=== PATIENT | male | born 1975 | race Caucasian/White ===

== ENCOUNTER 2017-10-31 16:50 | Inpatient (IN) | END 2017-11-05 11:05 | disposition home or self-care (01) | DRG 443 ==

== ENCOUNTER 2018-01-31 16:51 | Inpatient (IN) | END 2018-02-02 11:42 | disposition home or self-care (01) | DRG 977 ==

== ENCOUNTER 2018-11-30 16:45 | Inpatient (IN) | payer MEDICAID, OTHER ==
[~2018-11-30] VITALS: Ht 167.6 cm; Wt 72.5 kg
[~2018-11-30 16:45] MED LIST: ASC500 PO; ATRO10DR OP; FLUC100T PO; LACT1CAP28 PO; MULT-843 PO; PRED5DRO20 LEFT EYE; SODI473S5 TP; SULF-182 PO; TRUV PO; [UNRECOGNIZED DRUG - CODE] PO
[2018-11-30] MEDS ORDERED: SODIUM CHLORIDE 0.9% 1L BAG IV* STA (18:21)
[2018-11-30] MEDS ORDERED: VANCOMYCIN 1 GM (PMX) 250 ML IVPB STA (18:21)
[2018-11-30] MEDS ORDERED: CLINDAMYCIN 900 MG/D5W (PMX) 50 ML IVPB STA (18:21)
[2018-11-30] MEDS ORDERED: PIPER-TAZO 3.375 GM IV (PMX) 100 ML IVPB STA (18:21)
[2018-11-30] MEDS ORDERED: IOHEXOL 300MG/ML 150 ML BTL ONE (18:29)
[2018-11-30] MEDS ORDERED: SOD CHLORIDE 0.9% 100 ML ONE (18:29)
[2018-11-30] MEDS ORDERED: IODIXANOL LOCM 100 ML BTL ONE (18:29)
[2018-11-30] MEDS ORDERED: FENTAnyl 50 MCG/ML VIAL IV ONE (18:30)
--- NOTE | 2018-11-30 18:48 | ERD ---
ER Documentation Chief Complaint Chief Complaint c/o left sided abdominal pain x3 days. Denies N/V/D. Hypotensive in triage HPI 42-year-old male complaining of scrotal swelling and severe pain. He noticed a lump on his scrotum about 5 days ago. Has significantly increased in size and is now causing a lot of pain. He denies any associated fevers or chills. He states he feels very tired because he has been unable to sleep due to the pain. The pain is now spreading into his left lower abdomen and flank. ROS All systems reviewed and are negative except as per history of present illness. Medications Home Meds No Active Prescriptions or Reported Meds Allergies Allergies: Coded Allergies: No Known Allergy (Unverified , 01/31/18) PMhx/Soc History of Surgery: No Anesthesia Reaction: No Hx Neurological Disorder: No Hx Respiratory Disorders: No Hx Cardiac Disorders: No Hx Psychiatric Problems: No Hx Miscellaneous Medical Probl: Yes (Hepatitis) Hx Alcohol Use: Yes Hx Substance Use: Yes Hx Tobacco Use: No FmHx Family History: No diabetes Physical Exam Vitals Vital Signs Date Temp Pulse Resp B/P (MAP) Pulse Ox O2 O2 Flow FiO2 Time Delivery Rate 11/30/18 119 16 104/78 99 Nasal 19:53 (87) Cannula 11/30/18 98.2 119 16 107/75 99 Nasal 19:02 (86) Cannula 11/30/18 92/63 (73) 18:30 11/30/18 Nasal 2 18:30 Cannula 11/30/18 97.6 55 18 88/55 (66) 99 17:41 Physical Exam Const: In distress secondary to pain, nontoxic, no diaphoresis Head: Atraumatic Eyes: Normal Conjunctiva ENT: Dry mucous membranes. Normal External Ears, Nose and Mouth. Neck: Full range of motion. No meningismus. Resp: Clear to auscultation bilaterally Cardio: Regular rate and rhythm, no murmurs Abd: Erythema noted in the left lower quadrant, extending to the back. Tender to palpation in the left lower quadrant. Soft, non distended. Normal bowel sounds : Significant scrotal swelling with erythema and small ulceration of the skin on the lower portion of the scrotum with signs of mild necrosis. No crepitus. Scrotum is fluctuant and severely tender to palpation. Penis appears normal. Skin: Appears pale, no petechiae or rashes Back: No midline or flank tenderness Ext: No cyanosis, or edema Neur: Awake and alert Psych: Normal Mood and Affect Result Diagram: 11/30/18182811/30/181828 Results 24 hrs Laboratory Tests Test 11/30/18 18:29 11/30/18 18:30 11/30/18 19:35 White Blood Count 13.0 10^3/ul Red Blood Count 4.56 10^6/ul Hemoglobin 12.3 g/dl Hematocrit 36.6 % Mean Corpuscular Volume 80.3 fl Mean Corpuscular Hemoglobin 27.0 pg Mean Corpuscular 33.6 g/dl Hemoglobin Concent Red Cell Distribution Width 14.6 % Platelet Count 353 10^3/UL Mean Platelet Volume 10.7 fl Immature Granulocytes % 0.500 % Neutrophils % % Segmented Neutrophils % (Manual) 56 % Band Neutrophils % (Manual) 27 % Lymphocytes % % Lymphocytes % (Manual) 7 % Monocytes % % Monocytes % (Manual) 7 % Eosinophils % % Basophils % % Metamyelocytes % (manual) 1 % Myelocytes % (Manual) 2 % Nucleated Red Blood Cells % 1 % Immature Granulocytes # 0.060 10^3/ul Neutrophils # 10^3/ul Neutrophils # (Manual) 7.7 10^3/ul Band Neutrophils # 3.5 10^3/ul Lymphocytes (Manual) 0.9 10^3/ul Lymphocytes # 10^3/ul Monocytes # 10^3/ul Monocytes # (Manual) 0.9 10^3/ul Eosinophils # 10^3/ul Basophils # 10^3/ul Metamyelocytes # 0.1 10^3/ul Myelocytes # 0.2 10^3/ul Nucleated Red Blood Cells # 10^3/ul Giant Platelets 2 % Polychromasia 1+ Poikilocytosis 3+ Anisocytosis 2+ Macrocytosis 2+ Prothrombin Time 15.1 Sec Prothrombin Time Ratio 1.2 INR International 1.18 Normalized Ratio Activated Partial Thromboplast 40.7 Sec Time Sodium Level 132 mmol/L Potassium Level 4.9 mmol/L Chloride Level 91 mmol/L Carbon Dioxide Level 21 mmol/L Anion Gap 20 Blood Urea Nitrogen 44 mg/dl Creatinine 2.19 mg/dl Est Glomerular Filtrat 33 mL/min Rate mL/min Glucose Level 89 mg/dl Calcium Level 8.8 mg/dl Total Bilirubin 0.7 mg/dl Direct Bilirubin 0.00 mg/dl Indirect Bilirubin 0.7 mg/dl Aspartate Amino Transf (AST/SGOT) 53 IU/L Alanine 22 IU/L Aminotransferase (ALT/SGPT) Alkaline Phosphatase 140 IU/L Troponin I 0.043 ng/ml Total Protein 8.1 g/dl Albumin 3.7 g/dl Globulin 4.40 g/dl Albumin/Globulin Ratio 0.84 POC Venous Lactate 4.6 mmol/L Urine Color YELLOW Urine Clarity CLOUDY Urine pH 5.0 Urine Specific [place] 1.026 Urine Ketones NEGATIVE mg/dL Urine Nitrite NEGATIVE mg/dL Urine Bilirubin NEGATIVE mg/dL Urine Urobilinogen NEGATIVE mg/dL Urine Leukocyte Esterase NEGATIVE Da/ul Urine Microscopic RBC 0 /HPF Urine Microscopic WBC 5 /HPF Urine Bacteria FEW /HPF Urine Granular Casts FEW /HPF Urine Hemoglobin 1+ mg/dL Urine Glucose NEGATIVE mg/dL Urine Total Protein 1+ mg/dl Urine Opiates Screen Negative Urine Barbiturates Negative Urine Amphetamines Screen Negative Urine Benzodiazepines Screen Negative Urine Cocaine Screen Negative Urine Cannabinoids Positive Current Medications Medications Dose Sig/Kostas Start Time Status Last (Trade) Ordered Route PRN Stop Time Admin Dose Reason Admin Sodium 2,220 ml BOLUS OVER 2 11/30/18 DC 11/30/18 Chloride HOURS STAT 18:21 11/30/18 18:29 (NS) IV* 18:26 Vancomycin 250 ml @ ONCE STAT 11/30/18 DC HCl 125 mls/hr IVPB 18:21 11/30/18 20:20 Clindamycin 50 ml @ 50 ONCE STAT 11/30/18 DC 11/30/18 HCl/ mls/hr IVPB 18:21 11/30/18 19:44 Dextrose 19:20 Piperacillin 100 ml @ ONCE STAT 11/30/18 DC 11/30/18 Sod/ 200 mls/hr IVPB 18:21 11/30/18 18:51 Tazobactam 18:50 Sod Fentanyl 50 mcg ONCE ONCE 11/30/18 DC 11/30/18 (Sublimaze) IV 18:30 11/30/18 18:51 18:31 IV Flush 10 ml STK-MED 11/30/18 DC 11/30/18 (NS 10 ml) ONCE .ROUTE 18:29 11/30/18 18:49 18:30 Sodium 100 ml @ ud STK-MED 11/30/18 DC 11/30/18 Chloride ONCE .ROUTE 18:29 11/30/18 18:49 18:30 Iodixanol 100 ml STK-MED 11/30/18 DC (Visipaque ONCE .ROUTE 18:29 11/30/18 Locm) 18:30 Iohexol 150 ml STK-MED 11/30/18 DC 11/30/18 (Omnipaque ONCE .ROUTE 18:29 11/30/18 18:49 300mg/ ml) 18:30 Procedures/MDM EMERGENT LABS AND DIAGNOSTIC STUDIES: Lab Results above were reviewed and interpreted by me. CBC: leukocytosis, concerning for infection CMP: Evidence of acute renal failure with elevated BUN and creatinine. No evidence of clinically significant electrolyte abnormality, acidosis, hypoglycemia, liver disease, or biliary obstruction Troponin within normal limits, not indicative of cardiac ischemia Lactate significantly elevated, consistent with septic shock UA: no evidence of infection 12-lead EKG was interpreted by Ana Cuello MD: Sinus tachycardia at 119 Normal axis Normal intervals No acute ST or T wave changes suggestive of acute ischemia or STEMI. Radiology Results as interpreted by Radiology below were reviewed by Edvin Cuello MD: Chest x-ray shows no acute abnormalities CT abdomen and pelvis: FINDINGS: The lung bases are clear of any infiltrate or nodule. No effusion is seen. The liver is enlarged measuring 21.4 cm. There is fatty infiltration. There is no mass or ductal dilatation. No gallstones are visualized. No adrenal or pancreatic abnormalities present. spleen is enlarged measuring 15 cm in AP diameter. No focal splenic mass is visualized. Kidneys are of normal size and contour. No hydronephrosis, calculus or mass Is seen. Ureters are of normal course and caliber with no stone. No bladder mass or stone is present. Uterus and ovaries appear normal. There is no aneurysm. No adenopathy is present. There are visible but nonpathologically enlarged retroperitoneal and bilateral inguinal nodes. No bowel mass or obstruction is present. The appendix is normal. No phlegmon, ascites or pneumoperitoneum is visualized. The osseous structures are intact. There is diffuse infiltration of the subcutaneous fat in the anterior pelvis extending into the score of. A 14 mm focal fluid collection is present on the lateral left scrotal wall. There is a left-sided hydrocele. Fluid is seen tracking along the superficial aspect of the left rectus muscle and is seen wi thin the internal and external oblique muscles in the left abdomen. There is no gas present within the edema. IMPRESSION: Diffuse thickening wall scrotum with left-sided hydrocele and small focal fluid collection left scrotum. Question abscess. Extensive phlegmonous infiltration subcutaneous fat anterior pelvis with fluid tracking in the left anterior abdominal wall. Correlation with scrotal ultrasound is recommended for more definitive diagnosis. Visible but nonpathologically enlarged reactive lymph nodes. Hepatis splenomegaly. Initial Nursing notes reviewed. Previous Medical Records requested via the Electronic Health Record. 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 Sepsis work-up was initiated. Lactate was significantly elevated, consistent with septic shock. Patient was given IV fluids and antibiotics. He was responsive to IV fluids with improvement of his hypertension. I immediately consulted the urologist on-call, who came to examine the patient soon after. He confirmed the diagnosis of Nida's gangrene and recommended the patient go immediately to the OR. Patient's infectious symptoms have not stabilized, and the patient is at risk of rapid decompensation. The patient will be admitted for careful hydration, antibiotic therapy, and infectious source control. Severe Sepsis criteria: Infectious source: Nida's gangrene End organ damage indicated by: Lactate > 2.0 mmol/L Hypotension (SBP < 90 or >40 mmHG drop or MAP < 65) Quantitative Consultant > 2.0 Sepsis Management: Time of recognition of severe sepsis: 18:30 Within 3 hours of recognition: Blood cultures x 2 before broad-spectrum antibiotics: Yes 30 ml/kg NS bolus Completed Initial lactate 4.6 Repeat lactate pending at time of admission Septic Shock Assessment: Any lactic acid > 4.0 yes Persistent hypotension (SBP < 90 or 40 mmHg drop, MAP < 65) despite 30 mL/kg IV fluid bolus No A focused sepsis perfusion/reperfusion reassessment examination was performed post 30ml/kg bolus @ 1902: Temp 98.2, BP 107/75, HR 119, RR16, Pox 99% Persistent Hypotension Treatment: Comfort care No Hypotension caused by: pt. baseline, med-induced, erroneous value, condition other than infection- No Refusal by patient/decision maker for: blood draw, IVF, Antibiotics, Pressors - No Central line not indicated Vasopressor not indicated Accepting Care Team Current data and ongoing care discussed. Admitting Physician: Dr. Manzo Software Quality Specialist(s): Urologist Dr. Damon Outstanding Data: cultures Critical Care Time: 45 minutes Treatments/Evaluations: Close monitoring and treatment of unstable vital signs, cardiorespiratory, and neurologic status, while maintaining tight balance of fluid, respiratory, and cardiac interventions. This includes the administration of emergency fluid management while maintaining close respiratory support as well as the provision of immediate and broad-spectrum antibiotic therapy, while performing a simultaneous assessment for possible sources in order to direct targeted therapy. This time includes discussing the case with the patient and the patients family.This time also includes the consideration for invasive and chemical support to prevent cardiopulmonary collapse. This time does not include all procedures stated elsewhere in this record. This time also includes reviewing old records, labs and radiological studies. This time includes examining and reexamining the patient. Additionally, this time also includes arranging care with admitting and consulting physicians. Departure Diagnosis: Primary Impression: Septic shock Additional Impressions: Acute renal failure Acute renal failure type: unspecified Qualified Codes: N17.9 - Acute kidney failure, unspecified Nida's gangrene of scrotum Condition: Critical ROBIN CUELLO MD Nov 30, 2018 18:47
--- NOTE | 2018-11-30 20:03 | CONS ---
Assessment/Plan Assessment/Plan Hospital Course (Demo Recall) 42-year-old male noticed a lump on his left side of the scrotum about a week earlier. He did not seek any medical help. Then today he noticed much more swelling and erythema and pain. He came into the emergency room and on the examination he does have erythema of inguinal area on both sides left more than right and the scrotum is very enlarged and has fluid in it and areas of skin necrosis on the posterior part of the scrotum. All of these suggesting an infectious process that is early Nida gangrene. On the physical examination all the findings are suggestive of early Nida gangrene. I did explain that to the patient and told him of the need to operate on him and that he may need multiple trips to the operating room. Patient is agreeable to proceed. Consultation Date/Type/Reason Admit Date/Time November 30, 2018 Date of Consultation: Nov 30, 2018 Type of Consult Urology Reason for Consultation Nida gangrene of the scrotum, perineal area and inguinal and suprapubic area Requesting Provider: ROBIN TAVAREZ MD Date/Time of Note DATE: 11/30/18 TIME: 19:55 Hx of Present Illness 42-year-old male noticed a lump on his left side of the scrotum about a week earlier. He did not seek any medical help. Then today he noticed much more swelling and erythema and pain. He came into the emergency room and on the examination he does have erythema of inguinal area on both sides left more than right and the scrotum is very enlarged and has fluid in it and areas of skin ne crosis on the posterior part of the scrotum. All of these suggesting an infectious process that is early Nida gangrene. Constitutional: no complaints Eyes: no complaints ENT: no complaints Respiratory: no complaints Cardiovascular: no complaints Gastrointestinal: other (Pain lower abdomen) Genitourinary: other (As per history of present illness) Musculoskeletal: no complaints Skin: erythema (Of bilateral inguinal areas and suprapubic area.), skin lesions (Of the scrotum) Neurologic: no complaints Endocrine: no complaints Psychological: no complaints Past Medical History Medical History: no pertinent history Home Meds No Active Prescriptions or Reported Meds Medications Current Medications Vancomycin HCl 250 ml @ 125 mls/hr ONCE STAT IVPB ; Start 11/30/18 at 18:21; Stop 11/30/18 at 20:20 Allergies: Coded Allergies: No Known Allergy (Unverified , 01/31/18) Past Surgical History Past Surgical Hx: no surgical history Social History Smoking Status: Former smoker Drug Use: marijuana (Does smoke marijuana) Exam/Review of Systems Exam Vitals Vital Signs Date Temp Pulse Resp B/P (MAP) Pulse Ox O2 O2 Flow FiO2 Time Delivery Rate 11/30/18 119 16 104/78 99 Nasal 19:53 (87) Cannula 11/30/18 98.2 19:02 11/30/18 2 18:30 Constitutional: alert, oriented Psych: no complaints Head: normocephalic Eyes: nl conjunctiva ENMT: nl external ears & nose Neck: supple Respiratory: normal air movement; No wheezing Cardiovascular: No jugular venous distention (JVD) Gastrointestinal: soft, other (Erythema and pain in the inguinal area and suprapubic areas) Genitourinary - Male: other (The scrotum is enlarged and discolored whitish and in the posterior part area of necrosis of the skin there is fluctuation in the scrotum. There is erythema extending into both inguinal areas on the left more than on the right.) Extremities: No calf tenderness Results Result Diagram: 11/30/18182811/30/181828 Results 24hrs Laboratory Tests Test 11/30/18 18:29 11/30/18 18:30 White Blood Count 13.0 #H Red Blood Count 4.56 L Hemoglobin 12.3 L Hematocrit 36.6 L Mean Corpuscular Volume 80.3 L Mean Corpuscular Hemoglobin 27.0 L Mean Corpuscular Hemoglobin Concent 33.6 Red Cell Distribution Width 14.6 H Platelet Count 353 # Mean Platelet Volume 10.7 H Immature Granulocytes % 0.500 H Neutrophils % Lymphocytes % Monocytes % Eosinophils % Basophils % Nucleated Red Blood Cells % 0.0 Immature Granulocytes # 0.060 H Neutrophils # Lymphocytes # Monocytes # Eosinophils # Basophils # Nucleated Red Blood Cells # Prothrombin Time 15.1 H Prothrombin Time Ratio 1.2 INR International Normalized Ratio 1.18 Activated Partial Thromboplast Time 40.7 H Sodium Level 132 L Potassium Level 4.9 Chloride Level 91 L Carbon Dioxide Level 21 Anion Gap 20 H Blood Urea Nitrogen 44 H Creatinine 2.19 H Est Glomerular Filtrat Rate mL/min 33 L Glucose Level 89 Calcium Level 8.8 Total Bilirubin 0.7 Direct Bilirubin 0.00 Indirect Bilirubin 0.7 Aspartate Amino Transf (AST/SGOT) 53 H Alanine Aminotransferase (ALT/SGPT) 22 Alkaline Phosphatase 140 H Troponin I 0.043 Total Protein 8.1 Albumin 3.7 Globulin 4.40 H Albumin/Globulin Ratio 0.84 POC Venous Lactate 4.6 *H Imaging Imaging CT scan of the abdomen and pelvis: The lung bases are clear of any infiltrate or nodule. No effusion is seen. The liver is enlarged measuring 21.4 cm. There is fatty infiltration. There is no mass or ductal dilatation. No gallstones are visualized. No adrenal or pancreatic abnormalities present. spleen is enlarged measuring 15 cm in AP diameter. No focal splenic mass is visualized. Kidneys are of normal size and contour. No hydronephrosis, calculus or mass Is seen. Ureters are of normal course and caliber with no stone. No bladder mass or stone is present. Uterus and ovaries appear normal. There is no aneurysm. No adenopathy is present. There are visible but nonpathologically enlarged retroperitoneal and bilateral inguinal nodes. No bowel mass or obstruction is present. The appendix is normal. No phlegmon, ascites or pneumoperitoneum is visualized. The osseous structures are intact. There is diffuse infiltration of the subcutaneous fat in the anterior pelvis extending into the score of. A 14 mm focal fluid collection is present on the lateral left scrotal wall. There is a left-sided hydrocele. Fluid is seen tracking along the superficial aspect of the left rectus muscle and is seen within the internal and external oblique muscles in the left abdomen. There is no gas present within the edema. IMPRESSION: Diffuse thickening wall scrotum with left-sided hydrocele and small focal fluid collection left scrotum. Question abscess. Extensive phlegmonous infiltration subcutaneous fat anterior pelvis with fluid tracking in the left anterior abdom inal wall. Correlation with scrotal ultrasound is recommended for more definitive diagnosis. Visible but nonpathologically enlarged reactive lymph nodes. Hepatis splenomegaly. Medications Medication Current Medications Vancomycin HCl 250 ml @ 125 mls/hr ONCE STAT IVPB ; Start 11/30/18 at 18:21; Stop 11/30/18 at 20:20 GWEN BUCK MD Nov 30, 2018 20:03
--- NOTE | 2018-11-30 20:12 | PREAC ---
Date/Time of Note Date/Time of Note DATE: 11/30/18 TIME: 20:11 Anesthesia Eval and Record Evaluation Time Pre-Procedure Interview DATE: 11/30/18 TIME: 20:11 Age 42 Sex male NPO: 8 hrs Preoperative diagnosis scrotal abscess Planned procedure I&D of scrotal abscess Past Medical History Past Medical History: Includes Cardio: Dyslipidemia Pulm: Smoking Hx Surgery & Anesthesia Issues No known issue Meds Anticoagulation: No Beta Lynne within 24 hr: No Reason Beta Lynne not given: Pt. not on B-Lynne No Active Prescriptions or Reported Meds Current Medications Vancomycin HCl 250 ml @ 125 mls/hr ONCE STAT IVPB ; Start 11/30/18 at 18:21; Stop 11/30/18 at 20:20 Meds reviewed: Yes Allergies Coded Allergies: No Known Allergy (Unverified , 01/31/18) Allergies Reviewed: Yes Labs/Studies Labs Reviewed: Reviewed by anesthesiologist Result Diagram: 11/30/18 1829 11/30/18 1829 Laboratory Tests 11/30/18 18:29 test: N/A Pre-procedure Exam Last vitals Vital Signs Date Temp Pulse Resp B/P (MAP) Pulse Ox O2 O2 Flow FiO2 Time Delivery Rate 11/30/18 119 16 104/78 99 Nasal 19:53 (87) Cannula 11/30/18 98.2 19:02 11/30/18 2 18:30 Airway: Adequate mouth opening, Adequate thyromental dist Mallampati: Mallampati II Teeth: Normal Lung: Normal Heart: Normal ASA Physical Status ASA physical status: 2 Emergency: None Planned Anesthetic General/MAC: ETT Pre-operative Attestations Prior to commencing anesthesia and surgery, the patient was re-evaluated, there was verification of: *The patient's identity *The results of appropriate recent lab work and preoperative vital signs *The above evaluation not changing prior to induction *Anesthetic plan, risk benefits, alternative and complications discussed with patient/family; questions answered; patient/family understands, accepts and wishes to proceed. EMMANUEL DESAI Nov 30, 2018 20:12
[2018-11-30] MEDS ORDERED: POLYMYXIN/BACITRACIN 1L IRRIG IRR ONE (20:20)
[2018-11-30] MEDS ORDERED: SUCCINYLCHOLINE CHLORIDE 100 MG/5 ML SYG IV ONE (20:25)
[2018-11-30] MEDS ORDERED: PROPOFOL 20 ML ONE (20:25)
[2018-11-30] MEDS ORDERED: ROCURONIUM 50 MG INJ ONE (20:25)
[2018-11-30] MEDS ORDERED: FENTAnyl 50 MCG/ML VIAL ONE ×4 (20:25→21:31)
[2018-11-30] MEDS ORDERED: LIDOCAINE 100 MG SYRINGE ONE (20:25)
[2018-11-30] MEDS ORDERED: ONDANSETRON 4 MG INJ IV PRN ×2 (20:30→22:00)
[2018-11-30] MEDS ORDERED: HYDROmorphONE 1 MG/5 ML IV SYRINGE IV PRN ×3 (20:30)
[2018-11-30] MEDS ORDERED: MEPERIDINE 25 MG INJ IV PRN ×2 (20:30→22:00)
[2018-11-30] MEDS ORDERED: FENTAnyl 50 MCG/ML VIAL IV PRN ×6 (20:30→22:00)
[2018-11-30] MEDS ORDERED: ALBUTEROL 0.083% (NEB) 2.5 MG/3 ML AMP HHN PRN ×2 (20:30→22:00)
[2018-11-30] MEDS ORDERED: METOCLOPRAMIDE 10 MG INJ IV PRN ×2 (20:30→22:00)
[2018-11-30] MEDS ORDERED: DIPHENHYDRAMINE 50 MG INJ IV PRN ×2 (20:30→22:00)
[2018-11-30] MEDS ORDERED: VANCOMYCIN IV PER PHARMACY XX SCH (21:00)
[2018-11-30] MEDS ORDERED: SUGAMMADEX SODIUM 200 MG/2 ML VIAL IV ONE (21:27)
[2018-11-30] MEDS ORDERED: MIDAZOLAM 1 MG/ML 2 ML INJ ONE (21:34)
[2018-11-30] MEDS ORDERED: HYDROmorphONE 0.5 MG/0.5 ML SYG IV PRN ×3 (22:00)
[2018-11-30 22:05] VITALS: PULSE 133
--- NOTE | 2018-11-30 22:10 | OPR ---
Date/Time of Note Date/Time of Note DATE: 11/30/18 TIME: 22:02 Operative Report Procedure Date: Nov 30, 2018 Preoperative Diagnosis Nida gangrene Postoperative Diagnosis Same Operation/Procedure Performed Excision, debridement, drainage of gangrenous and infected scrotal, perineal, left inguinal and penile areas. Surgeon see signature line Log Roller Yasmine Barbour Anesthesia Type: general Anesthesiologist: EMMANUEL DESAI Estimated Blood Loss: 10 - 50 ml's Transfusion none Specimen Necrotic and gangrenous tissue from scrotum, perineal, left inguinal and penile base areas Grafts/Implants none Complications none Pt Condition Post Procedure: stable Disposition: other (ICU) Indications Nida gangrene Procedure Description The patient was seen in the emergency room and found to have Nida gangrene therefore we brought him to the operating room. He underwent general endotracheal anesthesia. He already received antibiotics IV. He was then positioned in the lithotomy position. The lower abdomen and genital area and upper thighs were all prepped and draped in the usual sterile manner. The posterior part of the scrotum was then cut and opened and extended on durally toward the left inguinal area. The scrotal skin was thick, swollen, infected and on the right side it was whitish. There was a lot of drainage of sanguinous purulent fluid and cultures were taken. I did excise all the necrotic and gangrenous tissue from the scrotum back toward the perineum and toward the left inguinal area and across the scrotum to the right side of the scrotum and at the base of the penis also the left side around the tunica vaginalis there was a lot of necrotic tissue that I peeled off and then the tunica vaginalis itself was pink and healthy. On the right side there was a lot of whitish tissue and these were debrided at the end a good size of the skin on the right side did not appear to be pinkish but I left it with the hope that it will survive so we could have enough skin to close his wound later on at the end I did irrigate all the wound with antibiotic solution then I packed the wound with Kerlix and put 4 x 4's on the top of it and the dressing was held in place with 3 sutures and a fenestrated that underwear the patient was stable and was transferred to the intensive care unit in a stable condition. I did talk to him and to his partner before the surgery and after the surgery with his partner. He will need multiple trips back to the operating room to continue debriding any necrotic tissue. GWEN BUCK MD Nov 30, 2018 22:10
[2018-11-30 23:00] VITALS: BP 91/72; PULSE 125; RESP 20
[2018-11-30] MEDS: PIPER-TAZO 3.375 GM IV (PMX) 100 ML IVPB SCH (23:37)
[2018-11-30] MEDS ORDERED: VANCOMYCIN HCL 1.25 GM in SOD CHLORIDE 0.9% 250 ML IVPB SCH (23:45)
[2018-11-30 23:55] VITALS: Ht 167.6 cm; Wt 72.5 kg
[2018-12-01] VITALS (23 sets, daily range): BP systolic 80–116; BP diastolic 45–82; PULSE 95–138; RESP 18–32
[2018-12-01] MEDS: SOD CHLORIDE 0.9% 1,000 ML IV SCH ×4 (00:01→19:07)
[2018-12-01] MEDS: ACETAMINOPHEN 650MG/20.3ML CUP PO PRN ×3 (04:27→21:03)
[2018-12-01] MEDS ORDERED: SOD CHLORIDE 0.9% 1,000 ML IV ONE ×2 (04:30→10:00)
[2018-12-01] MEDS: PANTOPRAZOLE 40 MG INJ IV SCH (05:22)
[2018-12-01] MEDS: PIPER-TAZO 3.375 GM IV (PMX) 100 ML IVPB SCH ×4 (05:22→23:42)
--- NOTE | 2018-12-01 05:52 | HP ---
Date/Time of Note Date/Time of Note DATE: 12/01/18 TIME: 05:43 Assessment/Plan VTE Prophylaxis Pharmacological prophylaxis: NA/contraindicated Pharm contraindication: other (Patient just had a surgery) Lines/Catheters IV Catheter Type (from Nrs): Peripheral IV Urinary Cath still in place: No Assessment/Plan Assessment/Plan 1. Fourier gangrene of the scrotum: That is post I&D in the OR -IV antibiotic -Follow-up culture results -Pain management 2. Sepsis: Secondary to above -Broad-spectrum IV antibiotic, IV fluid, trend lactate -Follow-up culture results -ID consult 3. Left eye blindness -This is been going on for the past few weeks -He is following up with directory compiler as outpatient. He does not know what the diagnosis is, but he saw a retina specialist -Follow-up with his directory compiler as outpatient 4. Acute renal insufficiency -IV fluid for now and treat sepsis 5. History of HIV -ID consult in a.m. 6. History of hep B Result Diagram: 12/01/18 0423 12/01/18 0423 Results 24hrs Laboratory Tests Test 11/30/18 18:29 11/30/18 18:30 11/30/18 19:35 11/30/18 22:18 White Blood Count 13.0 #H Red Blood Count 4.56 L Hemoglobin 12.3 L Hematocrit 36.6 L Mean Corpuscular Volume 80.3 L Mean Corpuscular 27.0 L Hemoglobin Mean Corpuscular 33.6 Hemoglobin Concent Red Cell Distribution 14.6 H Width Platelet Count 353 # Mean Platelet Volume 10.7 H Immature Granulocytes % 0.500 H Neutrophils % Segmented Neutrophils 56 % (Manual) Band Neutrophils % 27 H (Manual) Lymphocytes % Lymphocytes % (Manual) 7 L Monocytes % Monocytes % (Manual) 7 Eosinophils % Basophils % Metamyelocytes % 1 H (manual) Myelocytes % (Manual) 2 H Nucleated Red Blood 1 H Cells % Immature Granulocytes # 0.060 H Neutrophils # Neutrophils # (Manual) 7.7 H Band Neutrophils # 3.5 H Lymphocytes (Manual) 0.9 Lymphocytes # Monocytes # Monocytes # (Manual) 0.9 Eosinophils # Basophils # Metamyelocytes # 0.1 H Myelocytes # 0.2 H Nucleated Red Blood Cells # Giant Platelets 2 H Polychromasia 1+ Poikilocytosis 3+ Anisocytosis 2+ Macrocytosis 2+ Prothrombin Time 15.1 H Prothrombin Time Ratio 1.2 INR International 1.18 Normalized Ratio Activated 40.7 H Partial Thromboplast Time Sodium Level 132 L Potassium Level 4.9 Chloride Level 91 L Carbon Dioxide Level 21 Anion Gap 20 H Blood Urea Nitrogen 44 H Creatinine 2.19 H Est Glomerular Filtrat 33 L Rate mL/min Glucose Level 89 Calcium Level 8.8 Total Bilirubin 0.7 Direct Bilirubin 0.00 Indirect Bilirubin 0.7 Aspartate Amino 53 H Transf (AST/SGOT) Alanine 22 Aminotransferase (ALT/SG PT) Alkaline Phosphatase 140 H Troponin I 0.043 Total Protein 8.1 Albumin 3.7 Globulin 4.40 H Albumin/Globulin Ratio 0.84 POC Venous Lactate 4.6 *H Urine Color YELLOW Urine Clarity CLOUDY A Urine pH 5.0 Urine Specific [place] 1.026 Urine Ketones NEGATIVE Urine Nitrite NEGATIVE Urine Bilirubin NEGATIVE Urine Urobilinogen NEGATIVE Urine Leukocyte Esterase NEGATIVE Urine Microscopic RBC 0 Urine Microscopic WBC 5 Urine Bacteria FEW A Urine Granular Casts FEW A Urine Hemoglobin 1+ H Urine Glucose NEGATIVE Urine Total Protein 1+ H Urine Opiates Screen Negative Urine Barbiturates Negative Urine Amphetamines Negative Screen Urine Benzodiazepines Negative Screen Urine Cocaine Screen Negative Urine Cannabinoids Positive Lactic Acid Level 4.9 *H Test 11/30/18 23:23 12/01/18 00:20 12/01/18 04:23 Bedside Glucose 94 Lactic Acid Level 3.1 *H White Blood Count 7.6 # Red Blood Count 3.77 L Hemoglobin 10.2 L Hematocrit 31.1 L Mean Corpuscular Volume 82.5 Mean Corpuscular 27.1 L Hemoglobin Mean Corpuscular 32.8 Hemoglobin Concent Red Cell Distribution 15.0 H Width Platelet Count 298 Mean Platelet Volume 10.8 H Immature Granulocytes % 0.100 Neutrophils % Lymphocytes % Monocytes % Eosinophils % Basophils % Nucleated Red Blood 0.0 Cells % Immature Granulocytes # 0.010 Neutrophils # Lymphocytes # Monocytes # Eosinophils # Basophils # Nucleated Red Blood Cells # Sodium Level 133 L Potassium Level 4.7 Chloride Level 104 # Carbon Dioxide Level 18 L Anion Gap 11 # Blood Urea Nitrogen 36 H Creatinine 1.41 H Est Glomerular Filtrat 55 L Rate mL/min Glucose Level 96 Calcium Level 7.5 L Total Bilirubin 0.6 Direct Bilirubin 0.00 Indirect Bilirubin 0.6 Aspartate Amino 52 H Transf (AST/SGOT) Alanine 24 Aminotransferase (ALT/SG PT) Alkaline Phosphatase 103 Total Protein 6.1 # Albumin 2.6 #L Globulin 3.50 H Albumin/Globulin Ratio 0.74 HPI/ROS Admit Date/Time Admit Date/Time November 30, 2018 Hx of Present Illness Patient is a 42-year-old male with a history of HIV, hepatitis B, substance abuse including marijuana and cocaine, recently diagnosed left eye blindness. Patient presented to ER complaining of severe scrotal swelling and pain. He said about a week ago he noticed a small pimple, which he attempted to remove. Since then his scrotum is been significantly swelling and has been painful. When he presented to the ER, blood pressure was 88/55. WBC 13,000. Lactate elevated. CT abdomen/pelvis shows the following: -Diffuse thickening wall scrotum with left-sided hydrocele and small focal fluid collection left scrotum. Question abscess. Extensive phlegmonous infiltration subcutaneous fat anterior pelvis with fluid tracking in the left anterior abdominal wall. Correlation with scrotal ultrasound is recommended for more definitive diagnosis. -Visible but nonpathologically enlarged reactive lymph nodes. -Hepatis splenomegaly. Patient was taken to the OR by urology and underwent I&D. Currently admitted to ICU. Blood pressure has been in the 90s and is tachycardic in the 120s and 130s. He was briefly placed on pressor while he was in the OR. On physical examination, I noticed that his left pupil is dilated. He can barely see on his left eye. This been going on for the past few weeks. He is following up with directory compiler and has been placed on eyedrop. He he does not know what his diagnosis is, but stated that he saw a retina specialist and also was told that pressure on the eye was elevated. PMH/Family/Social Past Medical History Medical History: other (See HPI) Medications Current Medications Ondansetron HCl (Zofran Inj) 4 mg Q6H PRN IV NAUSEA AND/OR VOMITING; Start 11/30/18 at 21:00 Acetaminophen (Tylenol Liquid) 650 mg Q6H PRN PO PAIN LEVEL 1-3 OR FEVER Last administered on 12/01/18at 04:27; Admin Dose 650 MG; Start 11/30/18 at 21:00 Pantoprazole (Protonix Iv) 40 mg DAILY@06 IV Last administered on 12/01/18at 05:22; Admin Dose 40 MG; Start 12/01/18 at 06:00 Vancomycin HCl (Vanco Iv Per Pharmacy) VANCOMYCIN PER PHARMACY PER PROTOCOL XX ; Start 11/30/18 at 21:00 Piperacillin Sod/ Tazobactam Sod 100 ml @ 200 mls/hr Q6 IVPB Last administered on 12/01/18at 05:22; Admin Dose 200 MLS/HR; Start 12/01/18 at 00:00 Sodium Chloride 1,000 ml @ 125 mls/hr Q8H IV Last administered on 12/01/18at 00:01; Admin Dose 125 MLS/HR; Start 11/30/18 at 22:30 Vancomycin HCl 1.25 gm/Sodium Chloride 250 ml @ 83.333 mls/ hr Q24H IVPB Last administered on 12/01/18at 00:01; Admin Dose 83.333 MLS/HR; Start 11/30/18 at 23:45 Morphine Sulfate (morphine) 4 mg Q4H PRN IV SEVERE PAIN LEVEL 7-10; Start 12/01/18 at 04:30 Coded Allergies: No Known Allergy (Unverified , 01/31/18) Past Surgical History Past Surgical Hx: other (See HPI) Social History Alcohol Use: occasionally Smoking Status: Former smoker Drug Use: cocaine, marijuana (Does smoke marijuana) Exam/Review of Systems Vital Signs Vitals Vital Signs Date Temp Pulse Resp B/P (MAP) Pulse Ox O2 O2 Flow FiO2 Time Delivery Rate 12/01/18 102.0 05:13 12/01/18 138 04:00 12/01/18 24 99/67 (78) Room Air 01:00 12/01/18 100 00:00 11/30/18 2 18:30 Intake and Output 11/30/18 11/30/18 12/01/18 1515:00 23:00 07:00 IntakeIntake Total 1500 ml 720 ml OutputOutput Total 50 ml 200 ml BalanceBalance 1450 ml 520 ml Exam Constitutional: alert, oriented, well developed Head: normocephalic, atraumatic Eyes: other (Left pupil is dilated. He barely can see on the left eye) Respiratory: clear to auscultation, normal air movement Cardiovascular: other (Tachycardic regular rhythm) Gastrointestinal: soft Genitourinary - Male: other (Significant scrotal swelling and pain. I&D site is covered) Extremities: normal pulses PARIS ARROYO MD Dec 01, 2018 05:52
[2018-12-01] MEDS: CLINDAMYCIN 600 MG/D5W (PMX) 50 ML IVPB SCH ×3 (06:34→21:03)
--- NOTE | 2018-12-01 08:29 | CONS ---
DATE OF ADMISSION: 11/30/2018 DATE OF CONSULTATION: 12/01/2018 TYPE OF CONSULTATION: Nephrology. REASON FOR CONSULTATION: Acute kidney injury. PHYSICIAN REQUESTING CONSULT: Dr. Arroyo. HISTORY OF PRESENT ILLNESS: This is a 42-year-old male with a past medical history of reported human immunodeficiency virus, history of hepatitis B, history of polysubstance abuse, recent history of le ft eye blindness, who presented to the [facility] Emergency Room complaining of severe scrot al swelling and pain. The patient said about a week ago he noted to have a pimple on his groin regio n, which he attempted to root. Since then the patient's scrotum has become swollen and painful. Upo n arrival to the emergency room, the patient was hypotensive with elevated lactic acid, elevated whit e count. The patient had CT scan of abdomen and pelvis, which showed diffuse thickening of the scrot um and hydrocele with extensive blood minus infiltration of subcutaneous fat. The patient was seen b y Urology, taken urgently to the emergency room and underwent incision and drainage for Nida's ga ngrene. The patient was then transferred to intensive care unit where he has been on IV fluids and a ntibiotics. In terms of patient's renal history, the patient had a previous baseline creatinine of 0.85 mg/dL. O n admission, the patient's creatinine was 2.19 mg/dL, which has improved with IV hydration. The emmanuel ent denies any hemoptysis, hematemesis or hematochezia. PAST MEDICAL HISTORY: As stated above, reported history of HIV, history of hepatitis B, history of p olysubstance abuse. FAMILY HISTORY: No family history of kidney disease. SOCIAL HISTORY: Polysubstance abuse. MEDICATIONS: The patient's medications have been reviewed. PAST SURGICAL HISTORY: None. ALLERGIES: NO KNOWN DRUG ALLERGIES. REVIEW OF SYSTEMS: A 14-point review of systems was conducted. Pertinent positives stated in HPI, o therwise negative. PHYSICAL EXAMINATION: VITAL SIGNS: Blood pressure is 80/54, respirations 18, pulse 112, temperature 102.0. HEENT: Head is normocephalic. Pupils are reactive to light. NECK: Supple. HEART: Tachycardic. LUNGS: Show diminished breath sounds at the base. ABDOMEN: Soft, nontender to palpation. EXTREMITIES: Negative for clubbing, cyanosis, no edema. : Patient has noted a dressing over his groin, clean, dry and intact. NEUROLOGIC: No focal deficits. MUSCULOSKELETAL: No joint effusion. LABORATORY DATA: Reviewed. Urinalysis was reviewed. IMAGING STUDIES: Reviewed. ASSESSMENT AND PLAN: This is a 42-year-old male who presents with: 1. Nonoliguric acute kidney injury with a previously normal baseline creatinine of 0.8 mg/dL. Etiol ogy of acute kidney injury is secondary to acute tubular necrosis due to sepsis. The patient's urina lysis shows evidence of granular casts consistent with tubular injury. The patient's renal function has been improving with supportive care. Recommendation at this point is to continue IV fluids. Con tinue antibiotic therapy. We will continue to monitor renal function closely. We would also recomme nd to maintain MAP of 65. 2. Hypernatremia, etiology is secondary to acute kidney injury causing decreased free water urinary excretion. Continue to monitor serum sodium levels and limit free water intake. 3. Metabolic acidosis. Etiology is secondary to acute kidney injury. Continue to monitor. No need for bicarbonate therapy. 4. Anemia. Continue to monitor hemoglobin and hematocrit levels. 5. Mineral bone disorder. Monitor calcium and phosphorus levels. 6. 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 Continue broad spectrum antibiotics, IV fluids and tren d lactic acid levels. Follow up blood cultures. 7. Nida's gangrene. The patient is status post incision and drainage. Continue current antibio tic regimen. Follow up with Urology. 8. History of human immunodeficiency virus. Continue to monitor. 9. History of hepatitis B. 10. History of left eye blindness. Continue to monitor. Follow up with ophthalmology. Thank you, Dr. Arroyo, for this interesting consult. It will be a pleasure to follow the patient with you throughout the hospital course. Dictated By: MANASA ALBRECHT DO NR/NTS Conf#: [id number] DID#: [id number] CC: PARIS ARROYO MD; GWEN BUCK MD;*EndCC*
[2018-12-01] MEDS: morphine 4 MG/ML VIAL IV PRN ×3 (09:50→21:03)
[2018-12-01] MEDS ORDERED: PHENYLephrine 20MG IN 250 ML 250 ML IV SCH (10:00)
[2018-12-01] MEDS: VANCOMYCIN 750 MG (PMX) 250 ML IVPB SCH ×2 (12:14→23:42)
--- NOTE | 2018-12-01 12:31 | PN ---
Date/Time of Note Date/Time of Note DATE: 12/01/18 TIME: 12:30 Assessment/Plan VTE Prophylaxis SCD applied (from Nsg): Yes Pharmacological prophylaxis: NA/contraindicated Pharm contraindication: surgical contra Lines/Catheters IV Catheter Type (from Nrsg): Peripheral IV Urinary Cath still in place: No Assessment/Plan Hospital Course 1. Fourier gangrene of the scrotum: That is post I&D in the OR -IV antibiotic -Follow-up culture results -Pain management 2. Sepsis: Secondary to above -Broad-spectrum IV antibiotic, IV fluid, trend lactate -Follow-up culture results -ID consult 3. Left eye blindness -This is been going on for the past few weeks -He is following up with crystalizer operator as outpatient. He does not know what the diagnosis is, but he saw a retina specialist -Follow-up with his crystalizer operator as outpatient 4. Acute renal insufficiency -IV fluid for now and treat sepsis 5. History of HIV -ID consult in a.m. 6. History of hep B Prophylaxis: SCDs Result Diagram: 12/01/18 0423 12/01/18 0423 Results 24hrs Laboratory Tests Test 11/30/18 18:29 11/30/18 18:30 11/30/18 19:35 11/30/18 22:18 White Blood Count 13.0 #H Red Blood Count 4.56 L Hemoglobin 12.3 L Hematocrit 36.6 L Mean Corpuscular Volume 80.3 L Mean Corpuscular 27.0 L Hemoglobin Mean Corpuscular 33.6 Hemoglobin Concent Red Cell Distribution 14.6 H Width Platelet Count 353 # Mean Platelet Volume 10.7 H Immature Granulocytes % 0.500 H Neutrophils % Segmented Neutrophils 56 % (Manual) Band Neutrophils % 27 H (Manual) Lymphocytes % Lymphocytes % (Manual) 7 L Monocytes % Monocytes % (Manual) 7 Eosinophils % Basophils % Metamyelocytes % 1 H (manual) Myelocytes % (Manual) 2 H Nucleated Red Blood 1 H Cells % Immature Granulocytes # 0.060 H Neutrophils # Neutrophils # (Manual) 7.7 H Band Neutrophils # 3.5 H Lymphocytes (Manual) 0.9 Lymphocytes # Monocytes # Monocytes # (Manual) 0.9 Eosinophils # Basophils # Metamyelocytes # 0.1 H Myelocytes # 0.2 H Nucleated Red Blood Cells # Giant Platelets 2 H Polychromasia 1+ Poikilocytosis 3+ Anisocytosis 2+ Macrocytosis 2+ Prothrombin Time 15.1 H Prothrombin Time Ratio 1.2 INR International 1.18 Normalized Ratio Activated 40.7 H Partial Thromboplast Time Sodium Level 132 L Potassium Level 4.9 Chloride Level 91 L Carbon Dioxide Level 21 Anion Gap 20 H Blood Urea Nitrogen 44 H Creatinine 2.19 H Est Glomerular Filtrat 33 L Rate mL/min Glucose Level 89 Calcium Level 8.8 Total Bilirubin 0.7 Direct Bilirubin 0.00 Indirect Bilirubin 0.7 Aspartate Amino 53 H Transf (AST/SGOT) Alanine 22 Aminotransferase (ALT/SG PT) Alkaline Phosphatase 140 H Troponin I 0.043 Total Protein 8.1 Albumin 3.7 Globulin 4.40 H Albumin/Globulin Ratio 0.84 POC Venous Lactate 4.6 *H Urine Color YELLOW Urine Clarity CLOUDY A Urine pH 5.0 Urine Specific [place] 1.026 Urine Ketones NEGATIVE Urine Nitrite NEGATIVE Urine Bilirubin NEGATIVE Urine Urobilinogen NEGATIVE Urine Leukocyte Esterase NEGATIVE Urine Microscopic RBC 0 Urine Microscopic WBC 5 Urine Bacteria FEW A Urine Granular Casts FEW A Urine Hemoglobin 1+ H Urine Glucose NEGATIVE Urine Total Protein 1+ H Urine Opiates Screen Negative Urine Barbiturates Negative Urine Amphetamines Negative Screen Urine Benzodiazepines Negative Screen Urine Cocaine Screen Negative Urine Cannabinoids Positive Lactic Acid Level 4.9 *H Test 11/30/18 23:23 12/01/18 00:20 12/01/18 04:23 12/01/18 07:34 Bedside Glucose 94 Lactic Acid Level 3.1 *H 2.0 White Blood Count 7.6 # Red Blood Count 3.77 L Hemoglobin 10.2 L Hematocrit 31.1 L Mean Corpuscular Volume 82.5 Mean Corpuscular 27.1 L Hemoglobin Mean Corpuscular 32.8 Hemoglobin Concent Red Cell Distribution 15.0 H Width Platelet Count 298 Mean Platelet Volume 10.8 H Immature Granulocytes % 0.100 Neutrophils % Segmented Neutrophils 38 L % (Manual) Band Neutrophils % 38 H (Manual) Lymphocytes % Lymphocytes % (Manual) 16 Reactive Lymphocytes 3 H % (Manual) Monocytes % Monocytes % (Manual) 4 Eosinophils % Eosinophils % (Manual) 1 Basophils % Nucleated Red Blood 0.0 Cells % Immature Granulocytes # 0.010 Neutrophils # Neutrophils # (Manual) 3.1 Band Neutrophils # 2.8 H Lymphocytes (Manual) 1.2 Lymphocytes # Reactive Lymphocytes # 0.2 H Monocytes # Monocytes # (Manual) 0.3 Eosinophils # Basophils # Nucleated Red Blood Cells # Platelet Estimate NORMAL Polychromasia 3+ Poikilocytosis 3+ Anisocytosis 1+ Sodium Level 133 L Potassium Level 4.7 Chloride Level 104 # Carbon Dioxide Level 18 L Anion Gap 11 # Blood Urea Nitrogen 36 H Creatinine 1.41 H Est Glomerular Filtrat 55 L Rate mL/min Glucose Level 96 Calcium Level 7.5 L Total Bilirubin 0.6 Direct Bilirubin 0.00 Indirect Bilirubin 0.6 Aspartate Amino 52 H Transf (AST/SGOT) Alanine 24 Aminotransferase (ALT/SG PT) Alkaline Phosphatase 103 Total Protein 6.1 # Albumin 2.6 #L Globulin 3.50 H Albumin/Globulin Ratio 0.74 Subjective 24 Hr Interval Summary Constitutional: no complaints Exam/Review of Systems Exam Vitals Vital Signs Date Temp Pulse Resp B/P (MAP) Pulse Ox O2 O2 Flow FiO2 Time Delivery Rate 12/01/18 98 18 89/67 (74) 100 Room Air 08:00 12/01/18 99.0 07:00 11/30/18 2 18:30 Intake and Output 11/30/18 11/30/18 12/01/18 1515:00 23:00 07:00 IntakeIntake Total 1500 ml 2345 ml OutputOutput Total 50 ml 850 ml BalanceBalance 1450 ml 1495 ml Constitutional: alert, oriented Respiratory: clear to auscultation Cardiovascular: regular rate and rhythm Gastrointestinal: soft; No distended Musculoskeletal: nl extremities to inspection Results Results 24hrs Laboratory Tests Test 11/30/18 18:29 11/30/18 18:30 11/30/18 19:35 11/30/18 22:18 White Blood Count 13.0 #H Red Blood Count 4.56 L Hemoglobin 12.3 L Hematocrit 36.6 L Mean Corpuscular Volume 80.3 L Mean Corpuscular 27.0 L Hemoglobin Mean Corpuscular 33.6 Hemoglobin Concent Red Cell Distribution 14.6 H Width Platelet Count 353 # Mean Platelet Volume 10.7 H Immature Granulocytes % 0.500 H Neutrophils % Segmented Neutrophils 56 % (Manual) Band Neutrophils % 27 H (Manual) Lymphocytes % Lymphocytes % (Manual) 7 L Monocytes % Monocytes % (Manual) 7 Eosinophils % Basophils % Metamyelocytes % 1 H (manual) Myelocytes % (Manual) 2 H Nucleated Red Blood 1 H Cells % Immature Granulocytes # 0.060 H Neutrophils # Neutrophils # (Manual) 7.7 H Band Neutrophils # 3.5 H Lymphocytes (Manual) 0.9 Lymphocytes # Monocytes # Monocytes # (Manual) 0.9 Eosinophils # Basophils # Metamyelocytes # 0.1 H Myelocytes # 0.2 H Nucleated Red Blood Cells # Giant Platelets 2 H Polychromasia 1+ Poikilocytosis 3+ Anisocytosis 2+ Macrocytosis 2+ Prothrombin Time 15.1 H Prothrombin Time Ratio 1.2 INR International 1.18 Normalized Ratio Activated 40.7 H Partial Thromboplast Time Sodium Level 132 L Potassium Level 4.9 Chloride Level 91 L Carbon Dioxide Level 21 Anion Gap 20 H Blood Urea Nitrogen 44 H Creatinine 2.19 H Est Glomerular Filtrat 33 L Rate mL/min Glucose Level 89 Calcium Level 8.8 Total Bilirubin 0.7 Direct Bilirubin 0.00 Indirect Bilirubin 0.7 Aspartate Amino 53 H Transf (AST/SGOT) Alanine 22 Aminotransferase (ALT/SG PT) Alkaline Phosphatase 140 H Troponin I 0.043 Total Protein 8.1 Albumin 3.7 Globulin 4.40 H Albumin/Globulin Ratio 0.84 POC Venous Lactate 4.6 *H Urine Color YELLOW Urine Clarity CLOUDY A Urine pH 5.0 Urine Specific [place] 1.026 Urine Ketones NEGATIVE Urine Nitrite NEGATIVE Urine Bilirubin NEGATIVE Urine Urobilinogen NEGATIVE Urine Leukocyte Esterase NEGATIVE Urine Microscopic RBC 0 Urine Microscopic WBC 5 Urine Bacteria FEW A Urine Granular Casts FEW A Urine Hemoglobin 1+ H Urine Glucose NEGATIVE Urine Total Protein 1+ H Urine Opiates Screen Negative Urine Barbiturates Negative Urine Amphetamines Negative Screen Urine Benzodiazepines Negative Screen Urine Cocaine Screen Negative Urine Cannabinoids Positive Lactic Acid Level 4.9 *H Test 11/30/18 23:23 12/01/18 00:20 12/01/18 04:23 12/01/18 07:34 Bedside Glucose 94 Lactic Acid Level 3.1 *H 2.0 White Blood Count 7.6 # Red Blood Count 3.77 L Hemoglobin 10.2 L Hematocrit 31.1 L Mean Corpuscular Volume 82.5 Mean Corpuscular 27.1 L Hemoglobin Mean Corpuscular 32.8 Hemoglobin Concent Red Cell Distribution 15.0 H Width Platelet Count 298 Mean Platelet Volume 10.8 H Immature Granulocytes % 0.100 Neutrophils % Segmented Neutrophils 38 L % (Manual) Band Neutrophils % 38 H (Manual) Lymphocytes % Lymphocytes % (Manual) 16 Reactive Lymphocytes 3 H % (Manual) Monocytes % Monocytes % (Manual) 4 Eosinophils % Eosinophils % (Manual) 1 Basophils % Nucleated Red Blood 0.0 Cells % Immature Granulocytes # 0.010 Neutrophils # Neutrophils # (Manual) 3.1 Band Neutrophils # 2.8 H Lymphocytes (Manual) 1.2 Lymphocytes # Reactive Lymphocytes # 0.2 H Monocytes # Monocytes # (Manual) 0.3 Eosinophils # Basophils # Nucleated Red Blood Cells # Platelet Estimate NORMAL Polychromasia 3+ Poikilocytosis 3+ Anisocytosis 1+ Sodium Level 133 L Potassium Level 4.7 Chloride Level 104 # Carbon Dioxide Level 18 L Anion Gap 11 # Blood Urea Nitrogen 36 H Creatinine 1.41 H Est Glomerular Filtrat 55 L Rate mL/min Glucose Level 96 Calcium Level 7.5 L Total Bilirubin 0.6 Direct Bilirubin 0.00 Indirect Bilirubin 0.6 Aspartate Amino 52 H Transf (AST/SGOT) Alanine 24 Aminotransferase (ALT/SG PT) Alkaline Phosphatase 103 Total Protein 6.1 # Albumin 2.6 #L Globulin 3.50 H Albumin/Globulin Ratio 0.74 Medications Medication Current Medications Ondansetron HCl (Zofran Inj) 4 mg Q6H PRN IV NAUSEA AND/OR VOMITING; Start 11/30/18 at 21:00 Acetaminophen (Tylenol Liquid) 650 mg Q6H PRN PO PAIN LEVEL 1-3 OR FEVER Last administered on 12/01/18at 04:27; Admin Dose 650 MG; Start 11/30/18 at 21:00 Pantoprazole (Protonix Iv) 40 mg DAILY@06 IV Last administered on 12/01/18at 05:22; Admin Dose 40 MG; Start 12/01/18 at 06:00 Vancomycin HCl (Vanco Iv Per Pharmacy) VANCOMYCIN PER PHARMACY PER PROTOCOL XX ; Start 11/30/18 at 21:00 Piperacillin Sod/ Tazobactam Sod 100 ml @ 200 mls/hr Q6 IVPB Last administered on 12/01/18at 12:14; Admin Dose 200 MLS/HR; Start 12/01/18 at 00:00 Sodium Chloride 1,000 ml @ 125 mls/hr Q8H IV Last administered on 12/01/18at 06:14; Admin Dose 125 MLS/HR; Start 11/30/18 at 22:30 Morphine Sulfate (morphine) 4 mg Q4H PRN IV SEVERE PAIN LEVEL 7-10 Last admi nistered on 12/01/18at 09:50; Admin Dose 4 MG; Start 12/01/18 at 04:30 Clindamycin HCl/ Dextrose 50 ml @ 50 mls/hr Q8 IVPB Last administered on 12/01/18at 06:34; Admin Dose 50 MLS/HR; Start 12/01/18 at 06:00 Phenylephrine HCl 250 ml @ 75 mls/hr TITRATE IV ; Start 12/01/18 at 10:00 Vancomycin/Sodium Chloride 250 ml @ 125 mls/hr Q12H IVPB Last administered on 12/01/18at 12:14; Admin Dose 125 MLS/HR; Start 12/01/18 at 12:00 Miscellaneous Information (*Rx Drug Level Order Reminder*) VANCO TROUGH @ 1,100 ON... 1100 ONCE XX ; Start 12/02/18 at 11:00; Stop 12/02/18 at 11:01 LAITH MCKEON Dec 01, 2018 12:31
[2018-12-01] MEDS ORDERED: VANCOMYCIN HCL 1.25 GM in SOD CHLORIDE 0.9% 250 ML IVPB SCH (16:00)
[2018-12-02] VITALS (24 sets, daily range): BP systolic 102–153; BP diastolic 52–74; PULSE 92–123; RESP 16–32
[2018-12-02] MEDS: SOD CHLORIDE 0.9% 1,000 ML IV SCH ×2 (03:04→17:37)
[2018-12-02] MEDS: morphine 4 MG/ML VIAL IV PRN ×4 (03:04→21:27)
[2018-12-02] MEDS: CLINDAMYCIN 600 MG/D5W (PMX) 50 ML IVPB SCH ×3 (05:31→22:00)
[2018-12-02] MEDS: PIPER-TAZO 3.375 GM IV (PMX) 100 ML IVPB SCH ×3 (05:31→17:36)
[2018-12-02] MEDS: PANTOPRAZOLE 40 MG INJ IV SCH (05:31)
--- NOTE | 2018-12-02 08:25 | PN ---
DATE: 12/01/2018 SUBJECTIVE: The patient had known to be febrile, complain about pain on his right flank. The patien t noted to have increased erythema in his abdomen, right flank, right lower extremity. No other even ts noted. OBJECTIVE: VITAL SIGNS: Blood pressure is 108/61, respirations 23, pulse 123, temperature 100.1. HEENT: Head is normocephalic. NECK: Supple. HEART: Regular rate. LUNGS: Show diminished breath sounds at the base. ABDOMEN: Soft, nontender to palpation without rebound or guarding. EXTREMITIES: Negative for clubbing, cyanosis. No edema. Positive erythema, right lower leg. GENITOURINARY: The patient has noted dressing over his groin and is clean, dry, intact. DERMATOLOGIC: No rashes. MUSCULOSKELETAL: No joint effusions. NEUROLOGIC: No change in exam. MEDICATIONS: The patient's medication have been reviewed. LABORATORY DATA: Has been reviewed. The patient has less 1% urinalysis. ASSESSMENT AND PLAN: 1. Nonoliguric acute kidney injury previously normal baseline creatinine of 0.8 mg/dL. Etiology of acute kidney injury is secondary to acute tubular necrosis, septic acute kidney injury. The patient' s renal function continues to improve with supportive care. Recommendation is to continue current tr eatment plan. Continue IV hydration. Continue renally dose all meds. Avoid nephrotoxins. 2. Hyponatremia secondary to acute kidney injury. Continue to monitor serial sodium levels. Minimi ze free water intake. 3. Metabolic acidosis. Continue to monitor. Etiology secondary to acute kidney injury. IV fluids. 4. Anemia. Monitor hemoglobin and hematocrit levels. 5. Mineral bone disorder, monitor calcium and phosphorus levels. 6. 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 The patient has noted increased erythema of the ab domen. We will continue broad spectrum antibiotics. Follow up with surgery to see if the patient re quires further debridement. Follow up cultures. Monitor closely. 7. History of human immunodeficiency virus. 8. History of hepatitis B. 9. History of left eye blindness. Continue to monitor. Follow up with ophthalmology. Dictated By: MANASA ALBRECHT DO NR/NTS Conf#: [id number] DID#: [id number] CC: PARIS ARROYO MD; LAITH MCKEON MD; GWEN BUCK MD;*End*
[2018-12-02] MEDS: ACETAMINOPHEN 650MG/20.3ML CUP PO PRN ×2 (12:24→21:27)
[2018-12-02] MEDS: VANCOMYCIN HCL 1.25 GM in SOD CHLORIDE 0.9% 250 ML IVPB SCH (12:56)
--- NOTE | 2018-12-02 13:36 | PN ---
Date/Time of Note Date/Time of Note DATE: 12/02/18 TIME: 13:23 Assessment/Plan VTE Prophylaxis Risk score (from Ns)>0 risk: 1 SCD applied (from Ns): Yes Pharmacological prophylaxis: NA/contraindicated Pharm contraindication: low risk/ambulating Lines/Catheters IV [facility] Type [facility] Peripheral IV Urinary Cath still in place: No Assessment/Plan Hospital Course 1. Fourier gangrene of the scrotum: Status post I&D in the OR -IV antibiotics -Cultures from wound are growing MRSA -ID consultation obtained -Pain management 2. Sepsis: Secondary to above -Broad-spectrum IV antibiotic, IV fluid, trend lactate -Cultures show MRSA 3. Left eye blindness -This is been going on for the past few weeks -He is following up with global recruiter as outpatient. He does not know what the diagnosis is, but he saw a retina specialist -Follow-up with his global recruiter as outpatient 4. Acute renal insufficiency-resolving -IV fluid for now and treat sepsis 5. History of HIV -ID consult 6. History of hep B Prophylaxis: SCDs Result Diagram: 12/02/18 0431 12/02/18 0431 Results 24hrs Laboratory Tests Test 12/02/18 04:31 12/02/18 06:50 12/02/18 10:46 White Blood Count 15.2 #H Red Blood Count 3.32 L Hemoglobin 8.9 L Hematocrit 26.2 L Mean Corpuscular Volume 78.9 L Mean Corpuscular Hemoglobin 26.8 L Mean Corpuscular Hemoglobin Concent 34.0 Red Cell Distribution Width 14.8 H Platelet Count 329 Mean Platelet Volume 10.9 H Immature Granulocytes % 3.000 H Neutrophils % Segmented Neutrophils % (Manual) 38 L Band Neutrophils % (Manual) 42 H Lymphocytes % Lymphocytes % (Manual) 8 L Reactive Lymphocytes % (Manual) 6 H Monocytes % Monocytes % (Manual) 5 Eosinophils % Eosinophils % (Manual) 1 Basophils % Nucleated Red Blood Cells % 0.0 Immature Granulocytes # 0.450 H Neutrophils # Neutrophils # (Manual) 6.7 Band Neutrophils # 6.3 H Lymphocytes (Manual) 1.2 Lymphocytes # Reactive Lymphocytes # 0.9 H Monocytes # Monocytes # (Manual) 0.7 Eosinophils # Basophils # Nucleated Red Blood Cells # Platelet Estimate NORMAL Poikilocytosis 2+ Anisocytosis 1+ Sodium Level 133 L Potassium Level 4.3 Chloride Level 105 Carbon Dioxide Level 19 L Anion Gap 9 Blood Urea Nitrogen 21 #H Creatinine 1.13 Est Glomerular Filtrat Rate mL/min > 60 Glucose Level 57 #L Calcium Level 7.5 L Phosphorus Level 2.6 Magnesium Level 2.2 Bedside Glucose 71 Vancomycin Level Trough 6.3 L Subjective 24 Hr Interval Summary Constitutional: no complaints Exam/Review of Systems Exam Vitals Vital Signs Date Temp Pulse Resp B/P (MAP) Pulse Ox O2 O2 Flow FiO2 Time Delivery Rate 12/02/18 102.0 12:24 12/02/18 119 08:00 12/02/18 29 108/61 94 Room Air 08:00 (77) 11/30/18 2 18:30 Intake and Output 12/01/18 12/01/18 12/02/18 1515:00 23:00 07:00 IntakeIntake Total 2850 ml 2085 ml 1695 ml OutputOutput Total 1750 ml 950 ml 600 ml BalanceBalance 1100 ml 1135 ml 1095 ml Constitutional: alert, oriented Respiratory: clear to auscultation Cardiovascular: regular rate and rhythm Gastrointestinal: soft; No distended Musculoskeletal: nl extremities to inspection Results Results 24hrs Laboratory Tests Test 12/02/18 04:31 12/02/18 06:50 12/02/18 10:46 White Blood Count 15.2 #H Red Blood Count 3.32 L Hemoglobin 8.9 L Hematocrit 26.2 L Mean Corpuscular Volume 78.9 L Mean Corpuscular Hemoglobin 26.8 L Mean Corpuscular Hemoglobin Concent 34.0 Red Cell Distribution Width 14.8 H Platelet Count 329 Mean Platelet Volume 10.9 H Immature Granulocytes % 3.000 H Neutrophils % Segmented Neutrophils % (Manual) 38 L Band Neutrophils % (Manual) 42 H Lymphocytes % Lymphocytes % (Manual) 8 L Reactive Lymphocytes % (Manual) 6 H Monocytes % Monocytes % (Manual) 5 Eosinophils % Eosinophils % (Manual) 1 Basophils % Nucleated Red Blood Cells % 0.0 Immature Granulocytes # 0.450 H Neutrophils # Neutrophils # (Manual) 6.7 Band Neutrophils # 6.3 H Lymphocytes (Manual) 1.2 Lymphocytes # Reactive Lymphocytes # 0.9 H Monocytes # Monocytes # (Manual) 0.7 Eosinophils # Basophils # Nucleated Red Blood Cells # Platelet Estimate NORMAL Poikilocytosis 2+ Anisocytosis 1+ Sodium Level 133 L Potassium Level 4.3 Chloride Level 105 Carbon Dioxide Level 19 L Anion Gap 9 Blood Urea Nitrogen 21 #H Creatinine 1.13 Est Glomerular Filtrat Rate mL/min > 60 Glucose Level 57 #L Calcium Level 7.5 L Phosphorus Level 2.6 Magnesium Level 2.2 Bedside Glucose 71 Vancomycin Level Trough 6.3 L Medications Medication Current Medications Ondansetron HCl (Zofran Inj) 4 mg Q6H PRN IV NAUSEA AND/OR VOMITING; Start 11/30/18 at 21:00 Acetaminophen (Tylenol Liquid) 650 mg Q6H PRN PO PAIN LEVEL 1-3 OR FEVER Last administered on 12/02/18 12:24; Admin Dose 650 MG; Start 11/30/18 at 21:00 Pantoprazole (Protonix Iv) 40 mg DAILY@06 IV Last administered on 12/02/18 05:31; Admin Dose 40 MG; Start 12/01/18 at 06:00 Vancomycin HCl (Vanco Iv Per Pharmacy) VANCOMYCIN PER PHARMACY PER PROTOCOL XX ; Start 11/30/18 at 21:00 Piperacillin Sod/ Tazobactam Sod 100 ml @ 200 mls/hr Q6 IVPB Last administered on 12/02/18 12:17; Admin Dose 200 MLS/HR; Start 12/01/18 at 00:00 Sodium Chloride 1,000 ml @ 100 mls/hr Q10H IV Last administered on 12/02/18 03:04; Admin Dose 125 MLS/HR; Start 11/30/18 at 22:30 Morphine Sulfate (morphine) 4 mg Q4H PRN IV SEVERE PAIN LEVEL 7-10 Last administered on 12/02/18at 07:36; Admin Dose 4 MG; Start 12/01/18 at 04:30 Clindamycin HCl/ Dextrose 50 ml @ 50 mls/hr Q8 IVPB Last administered on 12/02/18 05:31; Admin Dose 50 MLS/HR; Start 12/01/18 at 06:00 Phenylephrine HCl 250 ml @ 75 mls/hr TITRATE IV ; Start 12/01/18 at 10:00 Vancomycin HCl 1.25 gm/Sodium Chloride 250 ml @ 83.333 mls/ hr Q12H IVPB Last administered on 12/02/18at 12:56; Admin Dose 83.333 MLS/HR; Start 12/02/18 at 13:00 Miscellaneous Information (*Rx Drug Level Order Reminder*) VANCO TROUGH @ 0,000 ON... 0000 ONCE XX ; Start 12/04/18 at 00:00; Stop 12/04/18 at 00:01 LAITH MCKEON Dec 02, 2018 13:34
--- NOTE | 2018-12-02 14:52 | CONS ---
DATE OF ADMISSION: 11/30/2018 DATE OF CONSULTATION: 12/02/2018 TYPE OF CONSULTATION: Infectious Disease. REASON FOR CONSULTATION: Antibiotic management. HISTORY OF PRESENT ILLNESS: Rinku Chow is a 42-year-old male, who comes in with left-sided abdomin al pain for 3 days with hypotension. The patient complains of scrotal swelling and severe pain. He noticed a lump in the scrotum about 5 days prior to admission with significantly increased in size an d is now causing a lot of pain. On admission, his white count was 13,000, H and H of 12.3 and 36.6, platelet count 353,000. BUN and creatinine 44/2.19, random glucose of 89. PAST PROBLEMS: Include hepatitis. FAMILY HISTORY: Noncontributory. SOCIAL HISTORY: He does smoke. He drinks and he does abuse drugs. ALLERGIES: NONE TO PENICILLIN, SULFA OR FOODS. MEDICATIONS: Per chart. REVIEW OF SYSTEMS: Noncontributory. HOSPITAL COURSE: The patient was seen by Dr. Buck. He had Nida's gangrene and an excision, d ebridement and drainage of gangrenous and infected scrotal perineal left inguinal in penile areas, ne crotic and gangrenous tissue was sent for culture. The patient was seen in consultation by Nephrolog y, Dr. Joseph, who noted a report of HIV, hepatitis B, polysubstance abuse, left eye blindness and a s noted severe scrotal pain. Currently, his Nida's gangrene of the scrotum, cultures are growing MRSA. The patient is on vancomycin with broad spectrum antibiotics; left eye blindness, history of HIV. The patient is on vancomycin. He is on clindamycin and Zosyn. HIV by PCR was ordered. His an aerobic cultures done. Blood cultures done. Fungal cultures done. He is currently not on anti-HIV medications. PHYSICAL EXAMINATION: GENERAL: He is alert, responsive, in no acute distress. VITAL SIGNS: Stable. He is afebrile. SKIN: Without generalized rash. HEENT: Within normal limits. NECK: Supple. LYMPH NODES: None palpable. CHEST: Decreased breath sounds at the bases. HEART: Without murmur or gallop. ABDOMEN: Soft, nontender, without organosplenomegaly or masses. EXTREMITIES: Without cyanosis, clubbing, or edema. RECTAL AND GENITAL: The area is on bandaged. NEUROLOGIC: No focal neurological abnormality. We will have to find out what HIV medicines the patient has been on and then resume them. I will dic ness my findings to the hospitalist. Dictated By: JOSS DELCID MD, JD/MESFIN Conf#: [id number] DID#: [id number] CC: PARIS ARROYO MD; LAITH MCKEON MD; GWEN BUCK MD;*EndCC*
--- NOTE | 2018-12-02 19:17 | CONS ---
Assessment/Plan Assessment/Plan Assessment/Plan (Daily) Necrotizing soft tissue infection with collection deep to the external oblique muscle. Patient need incisional drainage and debridement Consultation Date/Type/Reason Admit Date/Time November 30, 2018 Date of Consultation: Dec 02, 2018 Type of Consult Surgical Reason for Consultation Necrotizing soft tissue infection Date/Time of Note DATE: 12/02/18 TIME: 19:08 Hx of Present Illness The patient was seen by Dr. Damon. He had Nida's gangrene and an excisio n, debridement and drainage of gangrenous and infected scrotal perineal left inguinal in penile areas 2 days ago. Today the patient noticed increased pain in his left side flank and upper thigh. Constitutional: febrile Eyes: no complaints ENT: no complaints Respiratory: cough Cardiovascular: no complaints Gastrointestinal: no complaints Genitourinary: other (See H&P) Musculoskeletal: swelling Neurologic: no complaints Endocrine: no complaints Psychological: anxiety Immunologic: immunodeficiency Past Medical History Medical History: other (See HPI) Home Meds No Active Prescriptions or Reported Meds Medications Current Medications Ondansetron HCl (Zofran Inj) 4 mg Q6H PRN IV NAUSEA AND/OR VOMITING; Start 11/30/18 at 21:00 Acetaminophen (Tylenol Liquid) 650 mg Q6H PRN PO PAIN LEVEL 1-3 OR FEVER Last administered on 12/02/18at 12:24; Admin Dose 650 MG; Start 11/30/18 at 21:00 Pantoprazole (Protonix Iv) 40 mg DAILY@06 IV Last administered on 12/02/18at 05:31; Admin Dose 40 MG; Start 12/01/18 at 06:00 Vancomycin HCl (Vanco Iv Per Pharmacy) VANCOMYCIN PER PHARMACY PER PROTOCOL XX ; Start 11/30/18 at 21:00 Piperacillin Sod/ Tazobactam Sod 100 ml @ 200 mls/hr Q6 IVPB Last administered on 12/02/18 17:36; Admin Dose 200 MLS/HR; Start 12/01/18 at 00:00 Sodium Chloride 1,000 ml @ 100 mls/hr Q10H IV Last administered on 12/02/18 17 :37; Admin Dose 100 MLS/HR; Start 11/30/18 at 22:30 Morphine Sulfate (morphine) 4 mg Q4H PRN IV SEVERE PAIN LEVEL 7-10 Last administered on 12/02/18at 15:44; Admin Dose 4 MG; Start 12/01/18 at 04:30 Clindamycin HCl/ Dextrose 50 ml @ 50 mls/hr Q8 IVPB Last administered on 12/02/18at 15:48; Admin Dose 50 MLS/HR; Start 12/01/18 at 06:00 Phenylephrine HCl 250 ml @ 75 mls/hr TITRATE IV ; Start 12/01/18 at 10:00 Vancomycin HCl 1.25 gm/Sodium Chloride 250 ml @ 83.333 mls/ hr Q12H IVPB Last administered on 12/02/18at 12:56; Admin Dose 83.333 MLS/HR; Start 12/02/18 at 13:00 Miscellaneous Information (*Rx Drug Level Order Reminder*) VANCO TROUGH @ 0,000 ON... 0000 ONCE XX ; Start 12/04/18 at 00:00; Stop 12/04/18 at 00:01 Allergies: Coded Allergies: No Known Allergy (Unverified , 01/31/18) Past Surgical History Past Surgical Hx: no surgical history, other (See HPI) Social History Alcohol Use: occasionally Smoking Status: Former smoker Drug Use: cocaine, marijuana (Does smoke marijuana) Exam/Review of Systems Exam Vitals Vital Signs Date Temp Pulse Resp B/P (MAP) Pulse Ox O2 O2 Flow FiO2 Time Delivery Rate 12/02/18 101 18 143/71 100 Nasal 2.0 18:00 (95) Cannula 12/02/18 98.8 16:00 Intake and Output 12/01/18 12/01/18 12/02/18 1515:00 23:00 07:00 IntakeIntake Total 2850 ml 2085 ml 1695 ml OutputOutput Total 1750 ml 950 ml 600 ml BalanceBalance 1100 ml 1135 ml 1095 ml Skin: other (Significant erythema and tenderness left upper thigh and left flank. No crepitus.) Results Result Diagram: 12/02/18 0431 12/02/18 0431 Results 24hrs Laboratory Tests Test 12/02/18 04:29 12/02/18 04:31 12/02/18 06:50 12/02/18 10:46 HIV (1&2) Antibody REACTIVE H White Blood Count 15.2 #H Red Blood Count 3.32 L Hemoglobin 8.9 L Hematocrit 26.2 L Mean Corpuscular Volume 78.9 L Mean Corpuscular 26.8 L Hemoglobin Mean Corpuscular 34.0 Hemoglobin Concent Red Cell Distribution 14.8 H Width Platelet Count 329 Mean Platelet Volume 10.9 H Immature Granulocytes % 3.000 H Neutrophils % Segmented Neutrophils 38 L % (Manual) Band Neutrophils % 42 H (Manual) Lymphocytes % Lymphocytes % (Manual) 8 L Reactive Lymphocytes 6 H % (Manual) Monocytes % Monocytes % (Manual) 5 Eosinophils % Eosinophils % (Manual) 1 Basophils % Nucleated Red Blood 0.0 Cells % Immature Granulocytes # 0.450 H Neutrophils # Neutrophils # (Manual) 6.7 Band Neutrophils # 6.3 H Lymphocytes (Manual) 1.2 Lymphocytes # Reactive Lymphocytes # 0.9 H Monocytes # Monocytes # (Manual) 0.7 Eosinophils # Basophils # Nucleated Red Blood Cells # Platelet Estimate NORMAL Poikilocytosis 2+ Anisocytosis 1+ Sodium Level 133 L Potassium Level 4.3 Chloride Level 105 Carbon Dioxide Level 19 L Anion Gap 9 Blood Urea Nitrogen 21 #H Creatinine 1.13 Est Glomerular Filtrat > 60 Rate mL/min Glucose Level 57 #L Calcium Level 7.5 L Phosphorus Level 2.6 Magnesium Level 2.2 Bedside Glucose 71 Vancomycin Level Trough 6.3 L Medications Medication Current Medications Ondansetron HCl (Zofran Inj) 4 mg Q6H PRN IV NAUSEA AND/OR VOMITING; Start 11/30/18 at 21:00 Acetaminophen (Tylenol Liquid) 650 mg Q6H PRN PO PAIN LEVEL 1-3 OR FEVER Last administered on 12/02/18at 12:24; Admin Dose 650 MG; Start 11/30/18 at 21:00 Pantoprazole (Protonix Iv) 40 mg DAILY@06 IV Last administered on 12/02/18at 05:31; Admin Dose 40 MG; Start 12/01/18 at 06:00 Vancomycin HCl (Vanco Iv Per Pharmacy) VANCOMYCIN PER PHARMACY PER PROTOCOL XX ; Start 11/30/18 at 21:00 Piperacillin Sod/ Tazobactam Sod 100 ml @ 200 mls/hr Q6 IVPB Last administered on 12/02/18at 17:36; Admin Dose 200 MLS/HR; Start 12/01/18 at 00:00 Sodium Chloride 1,000 ml @ 100 mls/hr Q10H IV Last administered on 12/02/18at 17:37; Admin Dose 100 MLS/HR; Start 11/30/18 at 22:30 Morphine Sulfate (morphine) 4 mg Q4H PRN IV SEVERE PAIN LEVEL 7-10 Last administered on 12/02/18at 15:44; Admin Dose 4 MG; Start 12/01/18 at 04:30 Clindamycin HCl/ Dextrose 50 ml @ 50 mls/hr Q8 IVPB Last administered on 12/02/18at 15:48; Admin Dose 50 MLS/HR; Start 12/01/18 at 06:00 Phenylephrine HCl 250 ml @ 75 mls/hr TITRATE IV ; Start 12/01/18 at 10:00 Vancomycin HCl 1.25 gm/Sodium Chloride 250 ml @ 83.333 mls/ hr Q12H IVPB Last administered on 12/02/18at 12:56; Admin Dose 83.333 MLS/HR; Start 12/02/18 at 13:00 Miscellaneous Information (*Rx Drug Level Order Reminder*) VANCO TROUGH @ 0,000 ON... 0000 ONCE XX ; Start 12/04/18 at 00:00; Stop 12/04/18 at 00:01 KILEY PIERRE MD Dec 02, 2018 19:17
--- NOTE | 2018-12-02 21:33 | PREAC ---
Date/Time of Note Date/Time of Note DATE: 12/02/18 TIME: 21:31 Anesthesia Eval and Record Evaluation Time Pre-Procedure Interview DATE: 12/02/18 TIME: 21:31 Age 42 Sex male NPO: 8 hrs Preoperative diagnosis marvel gangrene perineal and chest wall Planned procedure incision and debridement of perineal and chest wall Past Medical History Past Medical History: Includes Renal: MK Infection(s): HIV, Hep B, Other (sepsis) Recreational drugs: Cocaine Surgery & Anesthesia Issues No known issue Meds Anticoagulation: No Beta Lynne within 24 hr: No Reason Beta Lynne not given: Pt. not on B-Lynne No Active Prescriptions or Reported Meds Current Medications Ondansetron HCl (Zofran Inj) 4 mg Q6H PRN IV NAUSEA AND/OR VOMITING; Start 11/30/18 at 21:00 Acetaminophen (Tylenol Liquid) 650 mg Q6H PRN PO PAIN LEVEL 1-3 OR FEVER Last administered on 12/02/18at 12:24; Admin Dose 650 MG; Start 11/30/18 at 21:00 Pantoprazole (Protonix Iv) 40 mg DAILY@06 IV Last administered on 12/02/18 05:3 1; Admin Dose 40 MG; Start 12/01/18 at 06:00 Vancomycin HCl (Vanco Iv Per Pharmacy) VANCOMYCIN PER PHARMACY PER PROTOCOL XX ; Start 11/30/18 at 21:00 Piperacillin Sod/ Tazobactam Sod 100 ml @ 200 mls/hr Q6 IVPB Last administered on 12/02/18 17:36; Admin Dose 200 MLS/HR; Start 12/01/18 at 00:00 Sodium Chloride 1,000 ml @ 100 mls/hr Q10H IV Last administered on 12/02/18 17:37; Admin Dose 100 MLS/HR; Start 11/30/18 at 22:30 Morphine Sulfate (morphine) 4 mg Q4H PRN IV SEVERE PAIN LEVEL 7-10 Last ad ministered on 12/02/18at 15:44; Admin Dose 4 MG; Start 12/01/18 at 04:30 Clindamycin HCl/ Dextrose 50 ml @ 50 mls/hr Q8 IVPB Last administered on 12/02/18 15:48; Admin Dose 50 MLS/HR; Start 12/01/18 at 06:00 Phenylephrine HCl 250 ml @ 75 mls/hr TITRATE IV ; Start 12/01/18 at 10:00 Vancomycin HCl 1.25 gm/Sodium Chloride 250 ml @ 83.333 mls/ hr Q12H IVPB Last administered on 12/02/18at 12:56; Admin Dose 83.333 MLS/HR; Start 12/02/18 at 13:00 Miscellaneous Information (*Rx Drug Level Order Reminder*) VANCO TROUGH @ 0,000 ON... 0000 ONCE XX ; Start 12/04/18 at 00:00; Stop 12/04/18 at 00:01 Meds reviewed: Yes Allergies Coded Allergies: No Known Allergy (Unverified , 01/31/18) Allergies Reviewed: Yes Labs/Studies Labs Reviewed: Reviewed by anesthesiologist Result Diagram: 12/02/18 0431 12/02/18 0431 Laboratory Tests 12/02/18 04:31 test: N/A Pre-procedure Exam Last vitals Vital Signs Date Temp Pulse Resp B/P (MAP) Pulse Ox O2 O2 Flow FiO2 Time Delivery Rate 12/02/18 101 18 143/71 100 Nasal 2.0 18:00 (95) Cannula 12/02/18 98.8 16:00 Airway: Adequate mouth opening, Adequate thyromental dist Mallampati: Mallampati II Teeth: Normal Lung: Normal Heart: Normal ASA Physical Status ASA physical status: 4 Emergency: E Planned Anesthetic General/MAC: ETT Planned Pain Management Parenteral pain med Pre-operative Attestations Prior to commencing anesthesia and surgery, the patient was re-evaluated, there was verification of: *The patient's identity *The results of appropriate recent lab work and preoperative vital signs *The above evaluation not changing prior to induction *Anesthetic plan, risk benefits, alternative and complications discussed with patient/family; questions answered; patient/family understands, accepts and wishes to proceed. ZENON TSANG Dec 02, 2018 21:33
--- NOTE | 2018-12-02 22:02 | HPN ---
Date/Time of Note Date/Time of Note DATE: 12/02/18 TIME: 22:00 Interval H&P Admission Note Pt. seen H&P reviewed: No system changes The patient was seen this morning and there were more erythema and redness in the flank area and thigh in addition to swelling. He did have a CT scan of the abdomen and pelvis without contrast and that showed: 1. LEFT LATERAL ABDOMINAL WALL FOCAL FLUID EXTENSIVE FOCAL FLUID COLLECTION, WHICH APPEARS TO BE INCREASED IN SIZE SINCE PRIOR EXAMINATION. THIS IS INTERPOSED BETWEEN THE LEFT INTERNAL AND EXTERNAL OBLIQUE MUSCLES AND THERE IS ASSOCIATED EDEMATOUS THICKENING OF THE MUSCLES, CONSISTENT WITH MYOSITIS. FINDINGS APPEAR TO BE INCREASED IN SIZE SINCE PRIOR STUDY DATED NOVEMBER 30, 2018. THIS IS LOCATED AT THE LEVEL OF THE SPLEEN AND TRACKS INFERIORLY TO THE ANTERIOR LEFT PELVIS. 2. Large amount of generalized anasarca, also increased since prior examination. 3. Diffuse thickening of the villatoro of the scrotum. Several foci of air identified. There appears to be postsurgical changes. Correlate with clinical history. 4. No gross intra-abdominal/pelvic free fluid or free air. No gross focal fluid collections. No significant retroperitoneal abnormality. 5. No evidence of bowel obstruction. Fluid-filled loops of small bowel, which may represent gastroenteritis. 6. Hepatosplenomegaly. 7. Probable gallbladder sludge. The patient was seen by infectious disease as well as by [facility]. And he will do incision and drainage of the flank and thighs area GWEN BUCK MD Dec 02, 2018 22:02
[2018-12-02] MEDS ORDERED: LIDOCAINE 2% (SDV) 5 ML INJ ONE (22:24)
[2018-12-02] MEDS ORDERED: PROPOFOL 20 ML ONE (22:24)
[2018-12-02] MEDS ORDERED: ROCURONIUM 50 MG INJ ONE ×2 (22:24→23:13)
[2018-12-02] MEDS ORDERED: PHENYLephrine 20MG IN 250 ML 250 ML IV SCH (22:30)
[2018-12-02] MEDS ORDERED: EPINEPHrine 4 MG in SOD CHLORIDE 0.9% 246 ML IV SCH (22:30)
[2018-12-02] MEDS ORDERED: PHENYLephrine 80 MG in DEXTROSE 5% 242 ML IV SCH (22:30)
[2018-12-02] MEDS ORDERED: POLYMYXIN B 500000 UNIT INJ ONE (22:38)
[2018-12-02] MEDS ORDERED: morphine 10 MG INJ ONE (23:13)
[2018-12-02] MEDS ORDERED: EPHEDrine 25 MG/5 ML SYG IV PRN (23:30)
[2018-12-02] MEDS ORDERED: MIDAZOLAM 1 MG/ML 2 ML INJ IV PRN (23:30)
[2018-12-02] MEDS ORDERED: morphine 10 MG INJ IV PRN (23:30)
[2018-12-02] MEDS ORDERED: hydrALAzine 20 MG INJ IV PRN (23:30)
[2018-12-02] MEDS ORDERED: MEPERIDINE 25 MG INJ IV PRN (23:30)
[2018-12-02] MEDS ORDERED: ALBUTEROL 0.083% (NEB) 2.5 MG/3 ML AMP HHN PRN (23:30)
[2018-12-02] MEDS ORDERED: morphine 2 MG INJ IV PRN ×2 (23:30)
[2018-12-02] MEDS ORDERED: LABETALOL HCL 20MG INJ IV PRN (23:30)
[2018-12-02] MEDS ORDERED: DIPHENHYDRAMINE 50 MG INJ IV PRN (23:30)
--- NOTE | 2018-12-02 23:45 | OPR ---
Date/Time of Note Date/Time of Note DATE: 12/02/18 TIME: 23:37 Operative Report Procedure Date: Dec 02, 2018 Preoperative Diagnosis Necrotizing fasciitis Postoperative Diagnosis Necrotizing fasciitis Operation/Procedure Performed Incision and drainage of necrotizing fasciitis anterior abdominal wall left chest left thigh right thigh and left groin. Surgeon see signature line [employer] Director Dr. 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 Damon few days ago developed redness and edema on the left side and left flank and left lower chest as well as a right thigh. CT scan confirmed sig nificant amount of swelling and fluid underneath the external oblique fascia. Procedure Description Patient was identified and brought to the operating room positioned supine general endotracheal anesthesia was induced. The procedure was started by taking off the old dressings and the assessment of the scrotum. This part of procedure will be dictated by urologist separately. After that the incision was started from the left groin up to the lower rib along the anterior clavicular line. The skin subcutaneous tissue was sharply divided and then we encountered very edematous muscle and huge amount of murky fluid which was sent for culture. Underneath the external oblique fascia found completely necrotic fascia extending from the groin up to the lower ribs. The fascia was extensively debrided down to vital tissue. Pulse irrigation was used in addition. In kathy tion incision was performed in the left upper thigh to check for necrotizing fasciitis but the tissues were found viable. The same performed in the right thigh there was some swelling there, but again there is no necrotic tissue found. After that all the wounds were packed with Kerlix soaked with saline and sterile dressing applied. Patient was transferred intubated to the ICU. Instrument and sponge counts were correct x2 thank you KILEY PIERRE MD Dec 02, 2018 23:45
--- NOTE | 2018-12-02 23:57 | OPR ---
Date/Time of Note Date/Time of Note DATE: 12/02/18 TIME: 23:48 Operative Report Procedure Date: Dec 02, 2018 Preoperative Diagnosis Nida gangrene extending into the abdominal wall toward the axilla and left flank, left thigh and right thigh and inguinal area Postoperative Diagnosis Same Operation/Procedure Performed Debridement of scrotum base of penis and inguinal area. The other procedure that relates to the abdominal wall left flank left thigh right thigh will be dictated by Dr. Portillo Surgeon see signature line Cager Operator Dr Portillo Anesthesia Type: general Anesthesiologist: ZENON TSANG Estimated Blood Loss: 50 - 100 ml's Transfusion none Specimen Necrotic tissue from scrotum, necrotic scrotal skin, abdominal necrotizing fasciitis tissue Grafts/Implants none Complications none Pt Condition Post Procedure: stable Disposition: other (ICU) Indications Nida gangrene extending into the abdominal wall, left flank and left thigh and also the right thigh and right flank area Procedure Description Patient was brought to the operating room and given general anesthesia. He was positioned in the supine position with his legs frogged. The patient was prepped from the chest all the way down to the mid thighs and then draped. The incision that he had over the scrotum and going toward the inguinal area was extended up toward the abdomen and then the fluid from the necrotizing fasciitis in the abdominal wall and left flank was drained at this part of the procedure will be dictated by . A lot of necrotized tissue was removed. As far as the scrotum there was part of the scrotal skin that was so I excised it I also debrided the scrotal area and on the left side as well as on the right side. At the end of the procedure I packed the scrotal area and the inguinal area with Kerlix soaked in saline. The dressing was held in place with a net fenestrated underwear. Again the rest of the procedure is dictated by . Was transferred to the intensive care unit in a stable condition. GWEN BUCK MD Dec 02, 2018 23:57
[2018-12-03] VITALS (73 sets, daily range): BP systolic 77–171; BP diastolic 49–126; PULSE 71–140; RESP 11–38
[2018-12-03] MEDS: PROPOFOL 100 ML IV SCH ×2 (00:14→06:27)
[2018-12-03] MEDS: SOD CHLORIDE 0.9% 1,000 ML IV SCH ×7 (00:27→21:35)
[2018-12-03] MEDS: morphine 4 MG/ML VIAL IV PRN ×4 (00:39→18:57)
[2018-12-03] MEDS: PIPER-TAZO 3.375 GM IV (PMX) 100 ML IVPB SCH ×4 (00:40→18:37)
[2018-12-03] MEDS: FENTAnyl (DRIP) 1000 mcg/100mL 100 ML IV SCH ×2 (01:20→11:26)
[2018-12-03] MEDS: VANCOMYCIN HCL 1.25 GM in SOD CHLORIDE 0.9% 250 ML IVPB SCH ×3 (01:40→13:53)
[2018-12-03] MEDS ORDERED: LORAZEPAM 2 MG INJ IV ONE (02:30)
[2018-12-03] MEDS ORDERED: MIDAZOLAM (DRIP) 50 mg/50 mL 50 ML IV SCH (03:00)
[2018-12-03] MEDS: PANTOPRAZOLE 40 MG INJ IV SCH (06:21)
[2018-12-03] MEDS: CLINDAMYCIN 600 MG/D5W (PMX) 50 ML IVPB SCH ×3 (06:36→21:34)
--- NOTE | 2018-12-03 08:22 | PN ---
DATE: 12/03/2018 SUBJECTIVE: The patient is critically ill on full ventilatory support. Patient underwent incision a nd drainage and necrotizing fasciitis around abdominal chest wall, growing yesterday. Followin g the procedure, the patient remains on full ventilatory support. Urinary output has been adequate. There have been no reports of hemoptysis, hematemesis or hematochezia. OBJECTIVE: VITAL SIGNS: Blood pressure 79/57, respirations 20, pulse 71, temperature is 98.6. I's and O's revi ewed. HEENT: Head is normocephalic. NECK: Supple. HEART: Regular rate. LUNGS: Show diminished breath sounds at the base. ABDOMEN: Has noted dressing is clean, dry, intact. GENITOURINARY: Did note a dressing clean, dry, intact. EXTREMITIES: Negative for clubbing, cyanosis, no edema. DERMATOLOGIC: No rashes. MUSCULOSKELETAL: No joint effusion. NEUROLOGIC: The patient is currently obtunded. MEDICATIONS: Have been reviewed. LABORATORY DATA: Has been reviewed. ASSESSMENT AND PLAN: 1. Nonoliguric acute kidney injury with previously normal baseline creatinine of 0.8 mg/dL. Etiolog y of acute kidney injury is secondary to acute tubular necrosis and sepsis. Renal function has impro oren. Continue current treatment plans, supportive care, renally dose all meds, monitor closely on IV fluids, antibiotic therapy. 2. Hyponatremia secondary to acute kidney injury, improved. Continue to monitor. 3. Anemia. Continue to monitor hemoglobin and hematocrit levels. 4. Mineral bone disorder. Monitor calcium and phosphorus levels. 5. 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 The patient is status post incision and drainage. Continue broad spectrum antibiotics, continue IV fluids, monitor closely. 6. Ventilator dependent respiratory failure. Vent settings and ABG was reviewed. Continue to monit or. 7. Acute encephalopathy, etiology is toxic metabolic. 8. History of HIV. 9. History of hepatitis B. 10. History of left eye blindness. Please note, I spent over 30 minutes of critical care time with this patient. Dictated By: MANASA ALBRECHT DO NR/NTS Conf#: [id number] DID#: [id number] CC: PARIS ARROYO MD;*End[facility]*
[2018-12-03] MEDS ORDERED: NORepinephrine 8MG/250 ML (PMX 250 ML IV SCH (08:30)
[2018-12-03] MEDS ORDERED: LIDOCAINE 1% (MPF) 5 ML VIAL SC ONE (09:00)
--- NOTE | 2018-12-03 09:57 | CONS ---
DATE OF ADMISSION: 11/30/2018 DATE OF CONSULTATION: 12/03/2018 TYPE OF CONSULTATION: Pulmonary. REASON FOR CONSULTATION: Ventilator management. Thank you, Dr. Duong, for this consultation. 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 Babak lawson underwent debridement of his scrotum base of penis with inguinal area yesterday evening and subsequ ently maintained on mechanical ventilation overnight. This morning, he is awake, alert, on mechanica l ventilation and appears comfortable. No respiratory distress. PAST MEDICAL HISTORY: HIV, recent mild renal insufficiency. MEDICATIONS: Per chart. ALLERGIES: None. SOCIAL HISTORY: Nonsmoker, no alcohol, no history of drug use. FAMILY HISTORY: Noncontributory. SYSTEMS REVIEW: A 12-point review of systems was negative as mentioned above. PHYSICAL EXAMINATION: GENERAL: Well-nourished, well-developed gentleman, currently orally intubated on mechanical ventilat ion. VITAL SIGNS: Currently afebrile, pulse is 72, blood pressure 80/56, O2 saturation 96%, FIO2 30%. NECK: Supple. No JVD. No lymphadenopathy. CARDIAC: S1, S2, no added sounds or murmurs. CHEST: Diminished air entry at bases. ABDOMEN: Soft, nontender. No guarding or rebound. EXTREMITIES: No cyanosis, clubbing, or edema. NEUROLOGIC: Currently unable to assess. LABORATORIES: White count 18.3, hemoglobin 7.6, platelets of 299. BUN 19, creatinine 1.25. ABG thi s morning is pending. Chest x-ray is also pending. IMPRESSION AND PLAN: 1. Nida's gangrene requiring surgical excision. 2. History of human immunodeficiency virus. 3. History of hepatitis. The patient will require continued mechanical ventilation, a CPAP trial, h opefully safely extubate this morning. 4. PICC line placement. 5. Transfusion of packed red blood cells. 6. Vasopressors if needed. 7. Tight glycemic management. 8. Continue current antibiotics pending cultures. 9. Deep venous thrombosis and gastrointestinal prophylaxis. Of note, previous cultures had grown MR MCDONALD. Dictated By: DESIREE MARSHALL MD SV/MESFIN Conf#: [id number] [facility]#: [id number] CC: PARIS ARROYO MD;*[facility]*
--- NOTE | 2018-12-03 09:57 | CONS ---
Consult Date/Type/Reason Admit Date/Time Nov 30, 2018 at 20:47 Initial Consult Date 12/02/18 Type of Consultation: Urology Reason for Consultation Nida gangrene and necrotizing fasciitis Requesting Provider: ROBIN TAVAREZ MD Date/Time of Note DATE: 12/03/18 TIME: 09:49 Subjective Patient still on a respirator. He had the incision and drainage and debridement last night. Objective Vitals Vital Signs Date Temp Pulse Resp B/P (MAP) Pulse Ox O2 O2 Flow FiO2 Time Delivery Rate 12/03/18 80 15 100 30 09:26 12/03/18 78/57 (64) 07:45 12/03/18 97.4 04:00 12/03/18 Mechanical 02:30 Ventilator 12/02/18 2.0 20:00 Intake and Output 12/02/18 12/02/18 12/03/18 1515:00 23:00 07:00 IntakeIntake Total 1050.00 ml 675 ml 2949.04 ml OutputOutput Total 1000 ml 950 ml 50 ml BalanceBalance 50.00 ml -275 ml 2899.04 ml Exam Patient is afebrile this morning. His blood pressure was down. The dressings over his wounds are soaked. Results/Medications Result Diagram: 12/03/18 0425 12/03/18 0425 Results 24 hrs Laboratory Tests Test 12/02/18 10:46 12/03/18 00:30 12/03/18 04:25 Vancomycin Level Trough 6.3 L Blood Gas Specimen Source Blood arterial Arterial Blood Date Drawn 12/03/2018 12:31:06 AM Arterial Blood pH 7.261 *L (Temp corrected) Arterial Blood pCO2 45.7 H (Temp correct) Arterial Blood pO2 89.3 (Temp corrected) Arterial Blood HCO3 20.1 L Arterial Blood Base Excess -6.7 L Arterial Blood 95.0 Oxygen Saturation Ketan Test ACCEPTAB Arterial Blood Gas Left Radial Puncture Site Arterial 0.4 Blood Carboxyhemoglobin Arterial Blood Methemoglobin 0.1 Blood Gas A-a O2 Differential 215.8 H Oxyhemoglobin Percent 94.5 Blood Gas Temperature 37.0 Blood Gas Respiration Rate 16.0 Blood Gas Actual 20 Respiration Rate Blood Gas Modality VENT - AC FiO2 50.0 Blood Gas Tidal Volume 500.0 Blood Gas Inspiratory Pressure 27.0 Blood Gas Critical Value Britany Zepeda RN Read Back Blood Gas Notified Whom Gopi López [facility] Blood Gas Notified Time 12/03/2018 12:43:39 AM White Blood Count 18.3 #H Red Blood Count 2.77 L Hemoglobin 7.6 L Hematocrit 22.5 L Mean Corpuscular Volume 81.2 L Mean Corpuscular Hemoglobin 27.4 L Mean Corpuscular 33.8 Hemoglobin Concent Red Cell Distribution Width 15.2 H Platelet Count 299 Mean Platelet Volume 10.8 H Immature Granulocytes % 4.500 H Neutrophils % Segmented Neutrophils 50 % (Manual) Band Neutrophils % (Manual) 30 H Lymphocytes % Lymphocytes % (Manual) 5 L Reactive Lymphocytes 2 H % (Manual) Monocytes % Monocytes % (Manual) 13 H Eosinophils % Basophils % Nucleated Red Blood Cells % 1 H Immature Granulocytes # 0.830 H Neutrophils # Neutrophils # (Manual) 10.1 H Band Neutrophils # 5.4 H Lymphocytes (Manual) 0.9 Lymphocytes # Reactive Lymphocytes # 0.3 H Monocytes # Monocytes # (Manual) 2.3 H Eosinophils # Basophils # Nucleated Red Blood Cells # Platelet Estimate NORMAL Giant Platelets 7 H Poikilocytosis 2+ Anisocytosis 1+ Sodium Level 136 Potassium Level 4.3 Chloride Level 106 Carbon Dioxide Level 21 Anion Gap 9 Blood Urea Nitrogen 19 Creatinine 1.25 H Est Glomerular Filtrat > 60 Rate mL/min Glucose Level 82 Calcium Level 7.8 L Phosphorus Level 5.8 #H Magnesium Level 2.1 Home Meds No Active Prescriptions or Reported Meds Medications Current Medications Ondansetron HCl (Zofran Inj) 4 mg Q6H PRN IV NAUSEA AND/OR VOMITING; Start 11/30/18 at 21:00 Acetaminophen (Tylenol Liquid) 650 mg Q6H PRN PO PAIN LEVEL 1-3 OR FEVER Last administered on 12/02/18at 21:27; Admin Dose 650 MG; Start 11/30/18 at 21:00 Pantoprazole (Protonix Iv) 40 mg DAILY@06 IV Last administered on 12/03/18at 06:21; Admin Dose 40 MG; Start 12/01/18 at 06:00 Vancomycin HCl (Vanco Iv Per Pharmacy) VANCOMYCIN PER PHARMACY PER PROTOCOL XX ; Start 11/30/18 at 21:00 Piperacillin Sod/ Tazobactam Sod 100 ml @ 200 mls/hr Q6 IVPB Last administered on 12/03/18 06:21; Admin Dose 200 MLS/HR; Start 12/01/18 at 00:00 Sodium Chloride 1,000 ml @ 100 mls/hr Q10H IV Last administered on 12/02/18 17:37; Admin Dose 100 MLS/HR; Start 11/30/18 at 22:30 Morphine Sulfate (morphine) 4 mg Q4H PRN IV SEVERE PAIN LEVEL 7-10 Last administered on 12/02/18 21:27; Admin Dose 4 MG; Start 12/01/18 at 04:30 Clindamycin HCl/ Dextrose 50 ml @ 50 mls/hr Q8 IVPB Last administered on 12/03/18 06:36; Admin Dose 50 MLS/HR; Start 12/01/18 at 06:00 Vancomycin HCl 1.25 gm/Sodium Chloride 250 ml @ 83.333 mls/ hr Q12H IVPB Last administered on 12/03/18 01:40; Admin Dose 83.333 MLS/HR; Start 12/02/18 at 13:00 Miscellaneous Information (*Rx Drug Level Order Reminder*) VANCO TROUGH @ 0,000 ON... 0000 ONCE XX ; Start 12/04/18 at 00:00; Stop 12/04/18 at 00:01 Sodium Chloride 1,000 ml @ 125 mls/hr Q8H IV Last administered on 12/03/18 00:27; Admin Dose 125 MLS/HR; Start 12/03/18 at 00:00 Propofol 100 ml @ 2.175 mls/ hr Q12H IV Last administered on 12/03/18 06:27; Admin Dose 8.7 MLS/HR; Start 12/03/18 at 00:00 Fentanyl 100 ml @ 1 mls/hr TITRATE IV Last administered on 12/03/18 01:20; Admin Dose 1 MLS/HR; Start 12/03/18 at 00:00 Midazolam HCl 50 ml @ 1 mls/hr TITRATE IV Last administered on 12/03/18 03:13; Admin Dose 3 MLS/HR; Start 12/03/18 at 03:00 Norepinephrine 250 ml @ 1.875 mls/ hr TITRATE IV ; Start 12/03/18 at 08:30 Assessment/Plan Hospital Course (Demo Recall) 42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 He underwent incision and drainage of the abdominal wall all the way up to the lower ribs on the left side and also of the left thigh and right inguinal area and debridement of the scrotum and perineal area. Postop he was kept on the ventilator. He is afebrile today and his blood pressure was down and the nurse had to hold the fentanyl for a short time. Presently the patient needs blood transfusion because of low hemoglobin of 7.6 and continue his antibiotics. I did talk to his partner and his brother who were at his bedside. Explained to them the findings during the surgery from yesterday and discussed the treatment and p rognosis. GWEN BUCK MD Dec 03, 2018 09:57
--- NOTE | 2018-12-03 11:10 | PAC ---
Date/Time of Note Date/Time of Note DATE: 12/03/18 TIME: 11:10 Post-Anesthesia Notes Post-Anesthesia Note Last documented vital signs Vital Signs Date Temp Pulse Resp B/P (MAP) Pulse Ox O2 O2 Flow FiO2 Time Delivery Rate 12/03/18 98.1 78 11 84/52 (63) 97 10:45 12/03/18 96 10:30 12/03/18 30 09:26 12/03/18 97.8 08:00 12/03/18 Mechanical 02:30 Ventilator 12/02/18 2.0 20:00 Activity: WNL Respiratory function: WNL Cardiovascular function: WNL Mental status: Baseline Pain reasonably controlled: Yes Hydration appropriate: Yes Nausea/Vomiting absent: Yes ZENON TSANG Dec 03, 2018 11:10
--- NOTE | 2018-12-03 13:53 | CONS ---
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 s/p dbridements x2 on 11/30/18 and most recent on 12/03/18. * He underwent incision and drainage of the abdominal wall all the way up to the lower ribs on the left side and also of the left thigh and right inguinal area and debridement of the scrotum and perineal area. * Postop he was kept on the ventilator. INTERVAL SUMMARY * Admit w/septic shock -> Extubated today, stable on supplemental O2 * HIV(+) => Repeat HIV AB (+) 12/02/18. Dr. Duong, has ordered HIV resistance and Integrase Genotyping, CD4# and repeat HIV VL pending. DIAGNOSTIC IMAGING * 12/02/18 CT ABD-PEL: IMPRESSION: * 1. LEFT LATERAL ABDOMINAL WALL FOCAL FLUID EXTENSIVE FOCAL FLUID COLLECTION, WHICH APPEARS TO BE INCREASED IN SIZE SINCE PRIOR EXAMINATION. THIS IS INTERPOSED BETWEEN THE LEFT INTERNAL AND EXTERNAL OBLIQUE MUSCLES AND THERE IS ASSOCIATED EDEMATOUS THICKENING OF THE MUSCLES, CONSISTENT WITH MYOSITIS. FINDINGS APPEAR TO BE INCREASED IN SIZE SINCE PRIOR STUDY DATED NOVEMBER 30, 2018. THIS IS LOCATED AT THE LEVEL OF THE SPLEEN AND TRACKS INFERIORLY TO THE ANTERIOR LEFT PELVIS. * 2. Large amount of generalized anasarca, also increased since prior examination. * 3. Diffuse thickening of the villatoro of the scrotum. Several foci of air identified. There appears to be postsurgical changes. Correlate with clinical history. * 4. No gross intra-abdominal/pelvic free fluid or free air. No gross focal fluid collections. No significant retroperitoneal abnormality. * 5. No evidence of bowel obstruction. Fluid-filled loops of small bowel, which may represent gastroenteritis. * 6. Hepatosplenomegaly. 7. Probable gallbladder sludge. * 12/02/18 MRI BRAIN: IMPRESSION: * 1. No acute intracranial hemorrhage, infarction or mass. If clinical concern persists consider dedicated orbit MRI with contrast for further evaluation. * 2. A few small foci of white matter signal abnormality, which are nonspecific in appearance and may reflect complicated migraines, early microvascular ischemic disease, sequela from prior traumatic or inflammatory insults. * 3. Prompt retrocerebellar CSF space which may represent laila cisterna magna versus arachnoid cyst. * 4. Minimal generalized cerebral volume loss. * 5. Mild bilateral mastoid air cells effusions. MICRO * 12/02/18 SCROTAL WOUND CX: WOUND CULTURE Final Organism 1 METHICILLIN RESISTANT S.AUREUS QUANTITY 2+ . MULTI DRUG RESISTANT ORGANISM MRSA M.I.C. RX --------- --- CEFAZOLIN R CIPROFLOXACIN >=8 R CLINDAMYCIN <=0.25 S DOXYCYCLINE S ERYTHROMYCIN >=8 R LEVOFLOXACIN 4 R OXACILLIN R PENICILLIN-G >=0.5 R RIFAMPIN <=0.5 S VANCOMYCIN <=0.5 S TRIMETHOPRIM/SULFAMETHOXAZOLE 20 S * 12/02/18 BCX (-) PHYSICAL EXAMINATION: GENERAL: VSS, NAD HEENT: Prior NECK: Supple, CHEST: Rise symmetrical HEART: Pulse RRR ABDOMEN: Benign EXTREMITIES: Warm, dry SKIN: No rash, no diaphoresis ID ASSESSMENT 42 yo M admit with: 1. Septic shock w/hypotension, fevers, leukocytosis due to #2 2. MRSA Nida's gangrene * s/p dbridements x2 on 11/30/18 and most recent on 12/03/18. * He underwent incision and drainage of the abdominal wall all the way up to the lower ribs on the left side and also of the left thigh and right inguinal area and debridement of the scrotum and perineal area. 3. History of human immunodeficiency virus-> BAEZ Naive * HIV Resistance and Integrase Genotyping + HLA-[id number] typing (for possible Triumeq) ordered prior to ARV med initiation 3. HBV w/HBV+Delta acute infection October 2017 w/repeat HBsAB Indeterminate and HBsAG (-) in JAN 2018 * => HE CLEARED THE VIRUS 4. Post operative mechanical ventilation -> Weaning per pulmonary 5. Anemia * -He is following up with career development director as outpatient. He does not know what the diagnosis is, but he saw a retina specialist * MRI brain w/ 6. Acute renal insufficiency-resolving (?)MRSA Nares ABX ALLERGIES: QUINOLONES INVASIVES: PIV, CURRENT ABX: DAY # =>Vanco IV + Zosyn + Clinda IV ID RECOMMENDATIONS/PLAN: 1. Continue current ABX 2. Follow surgical recs 3. HIV(+) => Repeat HIV AB (+) 12/02/18. Dr. Duong, has ordered HIV resistance and Integrase Genotyping, CD4# and repeat HIV VL pending. . Consultation Date/Type/Reason Admit Date/Time Nov 30, 2018 at 20:47 Initial Consult Date 12/02/18 Requesting Provider: ROBIN TAVAREZ MD Date/Time of Note DATE: 12/03/18 TIME: 12:29 Exam/Review of Systems Exam Vitals Vital Signs Date Temp Pulse Resp B/P (MAP) Pulse Ox O2 O2 Flow FiO2 Time Delivery Rate 12/03/18 82 14 100 30 11:55 12/03/18 84/52 (63) 10:45 12/03/18 97.8 08:00 12/03/18 Mechanical 02:30 Ventilator 12/02/18 2.0 20:00 Intake and Output 12/02/18 12/02/18 12/03/18 1515:00 23:00 07:00 IntakeIntake Total 1050.00 ml 675 ml 2958.54 ml OutputOutput Total 1000 ml 950 ml 50 ml BalanceBalance 50.00 ml -275 ml 2908.54 ml Results Result Diagram: 12/03/18 0425 12/03/18 0425 Results 24hrs Laboratory Tests Test 12/03/18 00:30 12/03/18 04:25 12/03/18 11:09 Blood Gas Specimen Blood arterial Blood arterial Source Arterial Blood Date 12/03/2018 12:31:06 AM 12/03/2018 12:12:04 PM Drawn Arterial Blood pH 7.261 *L 7.386 (Temp corrected) Arterial Blood pCO2 45.7 H 37.4 (Temp correct) Arterial Blood pO2 89.3 (Temp corrected) Arterial Blood HCO3 20.1 L 21.9 L Arterial Blood Base -6.7 L -2.8 Excess Arterial Blood 95.0 96.9 Oxygen Saturation Ketan Test ACCEPTAB ACCEPTAB Arterial Blood Gas Left Radial Right Brachial Puncture Site Arterial 0.4 0.2 Blood Carboxyhemoglobi n Arterial Blood 0.1 0.2 Methemoglobin Blood Gas A-a O2 215.8 H Differential Oxyhemoglobin Percent 94.5 96.5 Blood Gas Temperature 37.0 37.0 Blood Gas Respiration 16.0 Rate Blood Gas Actual 20 Respiration Rate Blood Gas Modality VENT - AC VENT - CPAP FiO2 50.0 30.0 Blood Gas Tidal Volume 500.0 Blood Gas Inspiratory 27.0 Pressure Blood Gas Critical Britany Zepeda RN GAVINO RN Value Read Back Blood Gas Notified Gopi López [employer] BT Whom Blood Gas Notified 12/03/2018 12:43:39 AM 12/03/2018 12:17:55 PM Time White Blood Count 18.3 #H Red Blood Count 2.77 L Hemoglobin 7.6 L Hematocrit 22.5 L Mean Corpuscular 81.2 L Volume Mean Corpuscular 27.4 L Hemoglobin Mean Corpuscular 33.8 Hemoglobin Concent Red Cell Distribution 15.2 H Width Platelet Count 299 Mean Platelet Volume 10.8 H Immature Granulocytes 4.500 H % Neutrophils % Segmented Neutrophils 50 % (Manual) Band Neutrophils % 30 H (Manual) Lymphocytes % Lymphocytes % (Manual) 5 L Reactive Lymphocytes 2 H % (Manual) Monocytes % Monocytes % (Manual) 13 H Eosinophils % Basophils % Nucleated Red Blood 1 H Cells % Immature Granulocytes 0.830 H # Neutrophils # Neutrophils # (Manual) 10.1 H Band Neutrophils # 5.4 H Lymphocytes (Manual) 0.9 Lymphocytes # Reactive Lymphocytes # 0.3 H Monocytes # Monocytes # (Manual) 2.3 H Eosinophils # Basophils # Nucleated Red Blood Cells # Platelet Estimate NORMAL Giant Platelets 7 H Poikilocytosis 2+ Anisocytosis 1+ Sodium Level 136 Potassium Level 4.3 Chloride Level 106 Carbon Dioxide Level 21 Anion Gap 9 Blood Urea Nitrogen 19 Creatinine 1.25 H Est Glomerular Filtrat > 60 Rate mL/min Glucose Level 82 Calcium Level 7.8 L Phosphorus Level 5.8 #H Magnesium Level 2.1 Blood Gas Pressure 7 Support Medications Medication Current Medications Ondansetron HCl (Zofran Inj) 4 mg Q6H PRN IV NAUSEA AND/OR VOMITING; Start 11/30/18 at 21:00 Acetaminophen (Tylenol Liquid) 650 mg Q6H PRN PO PAIN LEVEL 1-3 OR FEVER Last administered on 12/02/18at 21:27; Admin Dose 650 MG; Start 11/30/18 at 21:00 Pantoprazole (Protonix Iv) 40 mg DAILY@06 IV Last administered on 12/03/18at 06:21; Admin Dose 40 MG; Start 12/01/18 at 06:00 Vancomycin HCl (Vanco Iv Per Pharmacy) VANCOMYCIN PER PHARMACY PER PROTOCOL XX ; Start 11/30/18 at 21:00 Piperacillin Sod/ Tazobactam Sod 100 ml @ 200 mls/hr Q6 IVPB Last administered on 12/03/18 06:21; Admin Dose 200 MLS/HR; Start 12/01/18 at 00:00 Sodium Chloride 1,000 ml @ 100 mls/hr Q10H IV Last administered on 12/02/18 17:37; Admin Dose 100 MLS/HR; Start 11/30/18 at 22:30 Morphine Sulfate (morphine) 4 mg Q4H PRN IV SEVERE PAIN LEVEL 7-10 Last administered on 12/02/18 21:27; Admin Dose 4 MG; Start 12/01/18 at 04:30 Clindamycin HCl/ Dextrose 50 ml @ 50 mls/hr Q8 IVPB Last administered on 12/03/18 06:36; Admin Dose 50 MLS/HR; Start 12/01/18 at 06:00 Vancomycin HCl 1.25 gm/Sodium Chloride 250 ml @ 83.333 mls/ hr Q12H IVPB Last administered on 12/03/18 01:40; Admin Dose 83.333 MLS/HR; Start 12/02/18 at 13:00 Miscellaneous Information (*Rx Drug Level Order Reminder*) VANCO TROUGH @ 0,000 ON... 0000 ONCE XX ; Start 12/04/18 at 00:00; Stop 12/04/18 at 00:01 Sodium Chloride 1,000 ml @ 125 mls/hr Q8H IV Last administered on 12/03/18 10:49; Admin Dose 125 MLS/HR; Start 12/03/18 at 00:00 Propofol 100 ml @ 2.175 mls/ hr Q12H IV Last administered on 12/03/18 06:27; Admin Dose 8.7 MLS/HR; Start 12/03/18 at 00:00 Fentanyl 100 ml @ 1 mls/hr TITRATE IV Last administered on 12/03/18 11:26; Admin Dose 10 MLS/HR; Start 12/03/18 at 00:00 Midazolam HCl 50 ml @ 1 mls/hr TITRATE IV Last administered on 12/03/18 03:13; Admin Dose 3 MLS/HR; Start 12/03/18 at 03:00 Norepinephrine 250 ml @ 1.875 mls/ hr TITRATE IV ; Start 12/03/18 at 08:30 ROSS FERNANDES NP Dec 03, 2018 12:44
[2018-12-03] MEDS ORDERED: morphine 2 MG INJ IV PRN (17:00)
--- NOTE | 2018-12-03 18:53 | PN ---
Date/Time of Note Date/Time of Note DATE: 12/03/18 TIME: 18:48 Assessment/Plan VTE [place]axis [place] [facility] [place] risk: 2 [place] applied [place] [facility] [place] Yes Pharmacological prophylaxis: NA/contraindicated Pharm contraindication: surgical contra Lines/Catheters IV [facility] (from [facility] Peripheral IV Assessment/Plan Hospital Course 1. Fourier gangrene with necrotizing fasciitis Patient is status post initial debridement with urology Patient developed necrotizing fasciitis and is status post Incision and drainage of necrotizing fasciitis anterior abdominal wall left chest left thigh right thigh and left groin with surgery Patient had a repeat debridement of scrotum and penile area with urology Patient to be extubated today Continue IV antibiotics Culture from wounds are growing MRSA ID consultation appreciated 2. Sepsis: Secondary to above Broad-spectrum antibiotics as above Cultures show MRSA 3. History of HIV Patient had atypical serological markers from previous admissions Patient does indeed have HIV with RNA elevated, repeat antibody screen is positive ID consultation appreciated Patient's CD4 profile does suggest AIDS 4. Acute renal insufficiency-resolving -IV fluid for now and treat sepsis 5. Left eye blindness This is been going on for the past few weeks He is following up with full roll inspector as outpatient. He does not know what the diagnosis is, but he saw a retina specialist Follow-up with his full roll inspector as outpatient History of HIV -ID consult 6. History of hep B Prophylaxis: SCDs Result Diagram: 12/03/18 0425 12/03/18 0425 Results 24hrs Laboratory Tests Test 12/03/18 00:30 12/03/18 04:25 12/03/18 11:09 Blood Gas Specimen Blood arterial Blood arterial Source Arterial Blood Date 12/03/2018 12:31:06 AM 12/03/2018 12:12:04 PM Drawn Arterial Blood pH 7.261 *L 7.386 (Temp corrected) Arterial Blood pCO2 45.7 H 37.4 (Temp correct) Arterial Blood pO2 89.3 (Temp corrected) Arterial Blood HCO3 20.1 L 21.9 L Arterial Blood Base -6.7 L -2.8 Excess Arterial Blood 95.0 96.9 Oxygen Saturation Ketan Test ACCEPTAB ACCEPTAB Arterial Blood Gas Left Radial Right Brachial Puncture Site Arterial 0.4 0.2 Blood Carboxyhemoglobi n Arterial Blood 0.1 0.2 Methemoglobin Blood Gas A-a O2 215.8 H Differential Oxyhemoglobin Percent 94.5 96.5 Blood Gas Temperature 37.0 37.0 Blood Gas Respiration 16.0 Rate Blood Gas Actual 20 Respiration Rate Blood Gas Modality VENT - AC VENT - CPAP FiO2 50.0 30.0 Blood Gas Tidal Volume 500.0 Blood Gas Inspiratory 27.0 Pressure Blood Gas Critical Britany Zepeda RN RN Value Read Back Blood Gas Notified Gopi BROOKSP BT Whom Blood Gas Notified 12/03/2018 12:43:39 AM 12/03/2018 12:17:55 PM Time White Blood Count 18.3 #H Red Blood Count 2.77 L Hemoglobin 7.6 L Hematocrit 22.5 L Mean Corpuscular 81.2 L Volume Mean Corpuscular 27.4 L Hemoglobin Mean Corpuscular 33.8 Hemoglobin Concent Red Cell Distribution 15.2 H Width Platelet Count 299 Mean Platelet Volume 10.8 H Immature Granulocytes 4.500 H % Neutrophils % Segmented Neutrophils 50 % (Manual) Band Neutrophils % 30 H (Manual) Lymphocytes % Lymphocytes % (Manual) 5 L Reactive Lymphocytes 2 H % (Manual) Monocytes % Monocytes % (Manual) 13 H Eosinophils % Basophils % Nucleated Red Blood 1 H Cells % Immature Granulocytes 0.830 H # Neutrophils # Neutrophils # (Manual) 10.1 H Band Neutrophils # 5.4 H Lymphocytes (Manual) 0.9 Lymphocytes # Reactive Lymphocytes # 0.3 H Monocytes # Monocytes # (Manual) 2.3 H Eosinophils # Basophils # Nucleated Red Blood Cells # Platelet Estimate NORMAL Giant Platelets 7 H Poikilocytosis 2+ Anisocytosis 1+ Sodium Level 136 Potassium Level 4.3 Chloride Level 106 Carbon Dioxide Level 21 Anion Gap 9 Blood Urea Nitrogen 19 Creatinine 1.25 H Est Glomerular Filtrat > 60 Rate mL/min Glucose Level 82 Calcium Level 7.8 L Phosphorus Level 5.8 #H Magnesium Level 2.1 Absolute Lymphocytes 1860 Flow Cytometry Percent CD4 Osborn 12 L Cells Absolute CD4 Count 224 L T-Lymphocyte CD4/CD8 0.16 L Ratio Percent CD8+ 75 H Lymphocyte Absolute CD8 Count 1401 H Blood Gas Pressure 7 Support Subjective 24 Hr Interval Summary Subjective hx not possible: pt non-verbal Exam/Review of Systems Exam Vitals Vital Signs Date Temp Pulse Resp B/P (MAP) Pulse Ox O2 O2 Flow FiO2 Time Delivery Rate 12/03/18 101 19 91/49 (63) 100 15:00 12/03/18 98.0 12:00 12/03/18 30 11:55 12/03/18 Mechanical 02:30 Ventilator 12/02/18 2.0 20:00 Intake and Output 12/02/18 12/02/18 12/03/18 1515:00 23:00 07:00 IntakeIntake Total 1050.00 ml 675 ml 2958.54 ml OutputOutput Total 1000 ml 950 ml 130 ml BalanceBalance 50.00 ml -275 ml 2828.54 ml Constitutional: alert ENMT: intubated Respiratory: clear to auscultation Cardiovascular: regular rate and rhythm Gastrointestinal: soft; No distended Musculoskeletal: nl extremities to inspection Results Results 24hrs Laboratory Tests Test 12/03/18 00:30 12/03/18 04:25 12/03/18 11:09 Blood Gas Specimen Blood arterial Blood arterial Source Arterial Blood Date 12/03/2018 12:31:06 AM 12/03/2018 12:12:04 PM Drawn Arterial Blood pH 7.261 *L 7.386 (Temp corrected) Arterial Blood pCO2 45.7 H 37.4 (Temp correct) Arterial Blood pO2 89.3 (Temp corrected) Arterial Blood HCO3 20.1 L 21.9 L Arterial Blood Base -6.7 L -2.8 Excess Arterial Blood 95.0 96.9 Oxygen Saturation Ketan Test ACCEPTAB ACCEPTAB Arterial Blood Gas Left Radial Right Brachial Puncture Site Arterial 0.4 0.2 Blood Carboxyhemoglobi n Arterial Blood 0.1 0.2 Methemoglobin Blood Gas A-a O2 215.8 H Differential Oxyhemoglobin Percent 94.5 96.5 Blood Gas Temperature 37.0 37.0 Blood Gas Respiration 16.0 Rate Blood Gas Actual 20 Respiration Rate Blood Gas Modality VENT - AC VENT - CPAP FiO2 50.0 30.0 Blood Gas Tidal Volume 500.0 Blood Gas Inspiratory 27.0 Pressure Blood Gas Critical Britany Zepeda RN, RN Value Read Back Blood Gas Notified Gopi López RCP BT Whom Blood Gas Notified 12/03/2018 12:43:39 AM 12/03/2018 12:17:55 PM Time White Blood Count 18.3 #H Red Blood Count 2.77 L Hemoglobin 7.6 L Hematocrit 22.5 L Mean Corpuscular 81.2 L Volume Mean Corpuscular 27.4 L Hemoglobin Mean Corpuscular 33.8 Hemoglobin Concent Red Cell Distribution 15.2 H Width Platelet Count 299 Mean Platelet Volume 10.8 H Immature Granulocytes 4.500 H % Neutrophils % Segmented Neutrophils 50 % (Manual) Band Neutrophils % 30 H (Manual) Lymphocytes % Lymphocytes % (Manual) 5 L Reactive Lymphocytes 2 H % (Manual) Monocytes % Monocytes % (Manual) 13 H Eosinophils % Basophils % Nucleated Red Blood 1 H Cells % Immature Granulocytes 0.830 H # Neutrophils # Neutrophils # (Manual) 10.1 H Band Neutrophils # 5.4 H Lymphocytes (Manual) 0.9 Lymphocytes # Reactive Lymphocytes # 0.3 H Monocytes # Monocytes # (Manual) 2.3 H Eosinophils # Basophils # Nucleated Red Blood Cells # Platelet Estimate NORMAL Giant Platelets 7 H Poikilocytosis 2+ Anisocytosis 1+ Sodium Level 136 Potassium Level 4.3 Chloride Level 106 Carbon Dioxide Level 21 Anion Gap 9 Blood Urea Nitrogen 19 Creatinine 1.25 H Est Glomerular Filtrat > 60 Rate mL/min Glucose Level 82 Calcium Level 7.8 L Phosphorus Level 5.8 #H Magnesium Level 2.1 Absolute Lymphocytes 1860 Flow Cytometry Percent CD4 Osborn 12 L Cells Absolute CD4 Count 224 L T-Lymphocyte CD4/CD8 0.16 L Ratio Percent CD8+ 75 H Lymphocyte Absolute CD8 Count 1401 H Blood Gas Pressure 7 Support Medications Medication Current Medications Ondansetron HCl (Zofran Inj) 4 mg Q6H PRN IV NAUSEA AND/OR VOMITING; Start 11/30/18 at 21:00 Acetaminophen (Tylenol Liquid) 650 mg Q6H PRN PO PAIN LEVEL 1-3 OR FEVER Last administered on 12/02/18at 21:27; Admin Dose 650 MG; Start 11/30/18 at 21:00 Pantoprazole (Protonix Iv) 40 mg DAILY@06 IV Last administered on 12/03/18at 06:21; Admin Dose 40 MG; Start 12/01/18 at 06:00 Vancomycin HCl (Vanco Iv Per Pharmacy) VANCOMYCIN PER PHARMACY PER PROTOCOL XX ; Start 11/30/18 at 21:00 Piperacillin Sod/ Tazobactam Sod 100 ml @ 200 mls/hr Q6 IVPB Last administered on 12/03/18at 18:37; Admin Dose 200 MLS/HR; Start 12/01/18 at 00:00 Sodium Chloride 1,000 ml @ 100 mls/hr Q10H IV Last administered on 12/02/18 17:37; Admin Dose 100 MLS/HR; Start 11/30/18 at 22:30 Morphine Sulfate (morphine) 4 mg Q4H PRN IV SEVERE PAIN LEVEL 7-10 Last administered on 12/02/18at 21:27; Admin Dose 4 MG; Start 12/01/18 at 04:30 Clindamycin HCl/ Dextrose 50 ml @ 50 mls/hr Q8 IVPB Last administered on 12/03/18at 14:34; Admin Dose 50 MLS/HR; Start 12/01/18 at 06:00 Vancomycin HCl 1.25 gm/Sodium Chloride 250 ml @ 83.333 mls/ hr Q12H IVPB Last administered on 12/03/18 13:53; Admin Dose 83.333 MLS/HR; Start 12/02/18 at 13:00 Miscellaneous Information (*Rx Drug Level Order Reminder*) VANCO TROUGH @ 0,000 ON... 0000 ONCE XX ; Start 12/04/18 at 00:00; Stop 12/04/18 at 00:01 Sodium Chloride 1,000 ml @ 125 mls/hr Q8H IV Last administered on 12/03/18at 10:49; Admin Dose 125 MLS/HR; Start 12/03/18 at 00:00 Norepinephrine 250 ml @ 1.875 mls/ hr TITRATE IV ; Start 12/03/18 at 08:30 Morphine Sulfate (morphine) 2 mg Q4H PRN IV MODERATE PAIN LEVEL 4-6; Start 12/03/18 at 17:00 LAITH MCKEON Dec 03, 2018 18:53
--- NOTE | 2018-12-03 19:29 | PAC ---
Date/Time of Note Date/Time of Note DATE: 12/03/18 TIME: 19:29 Post-Anesthesia Notes Post-Anesthesia Note Last documented vital signs Vital Signs Date Temp Pulse Resp B/P (MAP) Pulse Ox O2 O2 Flow FiO2 Time Delivery Rate 12/03/18 99 2.0 19:01 12/03/18 101 19 91/49 (63) 15:00 12/03/18 98.0 12:00 12/03/18 30 11:55 12/03/18 Mechanical 02:30 Ventilator Activity: WNL Respiratory function: WNL Cardiovascular function: WNL Mental status: Baseline Pain reasonably controlled: Yes Hydration appropriate: Yes Nausea/Vomiting absent: Yes EMMANUEL DESAI Dec 03, 2018 19:29
[2018-12-04] VITALS (27 sets, daily range): BP systolic 82–141; BP diastolic 56–89; PULSE 94–113; RESP 12–27
[2018-12-04] MEDS: PIPER-TAZO 3.375 GM IV (PMX) 100 ML IVPB SCH ×2 (00:20→06:15)
[2018-12-04] MEDS: VANCOMYCIN HCL 1.25 GM in SOD CHLORIDE 0.9% 250 ML IVPB SCH (01:30)
[2018-12-04] MEDS: CLINDAMYCIN 600 MG/D5W (PMX) 50 ML IVPB SCH (06:15)
[2018-12-04] MEDS: morphine 4 MG/ML VIAL IV PRN (06:15)
[2018-12-04] MEDS: PANTOPRAZOLE 40 MG INJ IV SCH (06:16)
--- NOTE | 2018-12-04 07:56 | PN ---
DATE: 12/04/2018 SUBJECTIVE: This patient is currently stable. The patient's pain is present but controlled with igor n medications. No other events noted. OBJECTIVE: VITAL SIGNS: Blood pressure is 82/68, respiration 18, pulse 99, temperature is 99.1. HEENT: Head is normocephalic. NECK: Supple. HEART: Regular rate. LUNGS: Show diminished breath sounds at the base. ABDOMEN: Soft, with dressing clean, dry and intact. GENITOURINARY: Has dressing clean, dry, intact. DERMATOLOGIC: No rashes. MUSCULOSKELETAL: No joint effusion. NEUROLOGIC: No change in exam. MEDICATIONS: Reviewed. LABORATORY DATA: Has been reviewed. IMAGING STUDIES: Have been reviewed. ASSESSMENT AND PLAN: 1. Nonoliguric acute kidney injury with previously normal baseline creatinine 0.8 mg/dL. Etiology of acute kidney injury is secondary to acute tubular necrosis, sepsis. The patient's renal function has improved. Continue Neutra-Phos 100 and continue antibiotic therapy. 2. Hyponatremia secondary to acute injury, resolved. 3. Anemia. Continue to monitor hemoglobin and hematocrit levels. 4. Mineral bone disorder. Monitor calcium and phosphorus levels. 5. Severe sepsis secondary to Nida gangrene and necrotizing fasciitis. The patient is status po st incision and drainage. Continue broad spectrum antibiotics, continue IV fluids and monitor. 6. Respiratory failure, status post extubation, currently stable. 7. Encephalopathy, toxic metabolic. 8. History of human immunodeficiency virus. 9. History of hepatitis B. Dictated By: MANASA ANAYA/MESIFN Conf#: [id number] DID#: [id number]
[2018-12-04] MEDS ORDERED: MAGNESIUM SULFATE 2 GM/50 ML 50 ML IVPB ONE (08:30)
--- NOTE | 2018-12-04 09:01 | CONS ---
Consult Date/Type/Reason Admit Date/Time Nov 30, 2018 at 20:47 Initial Consult Date 12/02/18 Type of Consult Pulmonary Requesting Provider: ROBIN TAVAREZ MD Date/Time of Note DATE: 12/04/18 TIME: 09:00 Subjective Patient extubated yesterday. Awake alert and oriented. No respiratory distress. Objective Vital Signs Date Temp Pulse Resp B/P (MAP) Pulse Ox O2 O2 Flow FiO2 Time Delivery Rate 12/04/18 100 08:00 12/04/18 97.4 27 97/62 (74) 94 Room Air 08:00 12/04/18 2.0 04:00 12/03/18 30 11:55 Intake and Output 12/03/18 12/03/18 12/04/18 1515:00 23:00 07:00 IntakeIntake Total 817.5 ml 1450 ml 1125 ml OutputOutput Total 700 ml 870 ml 875 ml BalanceBalance 117.5 ml 580 ml 250 ml Exam GENERAL: VITAL SIGNS: per chart NECK: Supple. No JVD or lymphadenopathy. CARDIAC EXAM: S1, S2. No added sounds or murmurs. CHEST: clear bilaterally, No added sounds, rales or wheezes ABDOMEN: Soft, nontender. No guarding or rebound. EXTREMITIES: No cyanosis, clubbing or edema. NEUROLOGIC: Generalized weakness. No focal deficits. Well-nourished well- developed gentleman comfortable at rest Vent Setting Ventilator Support Mode: CPAP Fraction of Inspired Oxygen pe: 30 Positive End Expiratory Pressu: 5.0 Results/Medications Result Diagram: 12/04/18 0415 12/04/18 0415 Results 24 hrs Laboratory Tests Test 12/03/18 11:09 12/04/18 00:11 12/04/18 04:15 Blood Gas Specimen Source Blood arterial Arterial Blood Date Drawn 12/03/2018 12:12:04 PM Arterial Blood pH 7.386 (Temp corrected) Arterial Blood pCO2 37.4 (Temp correct) Arterial Blood HCO3 21.9 L Arterial Blood Base Excess -2.8 Arterial Blood 96.9 Oxygen Saturation Ketan Test ACCEPTAB Arterial Blood Gas Right Brachial Puncture Site Arterial 0.2 Blood Carboxyhemoglobin Arterial Blood Methemoglobin 0.2 Oxyhemoglobin Percent 96.5 Blood Gas Temperature 37.0 Blood Gas Modality VENT - CPAP FiO2 30.0 Blood Gas Pressure Support 7 Blood Gas Critical Value GAVINO DELAROSA Read Back Blood Gas Notified Whom BT Blood Gas Notified Time 12/03/2018 12:17:55 PM Vancomycin Level Trough 9.7 L White Blood Count 21.8 H Red Blood Count 2.85 L Hemoglobin 7.9 L Hematocrit 23.3 L Mean Corpuscular Volume 81.8 L Mean Corpuscular Hemoglobin 27.7 L Mean Corpuscular 33.9 Hemoglobin Concent Red Cell Distribution Width 15.4 H Platelet Count 303 Mean Platelet Volume 10.5 H Immature Granulocytes % 4.400 H Neutrophils % 79.3 H Segmented Neutrophils 78 H % (Manual) Band Neutrophils % (Manual) 10 H Lymphocytes % 10.8 L Lymphocytes % (Manual) 4 L Reactive Lymphocytes 1 H % (Manual) Monocytes % 4.5 Monocytes % (Manual) 4 Eosinophils % 0.6 Eosinophils % (Manual) 3 Basophils % 0.4 Nucleated Red Blood Cells % 0.2 H Immature Granulocytes # 0.970 H Neutrophils # 17.3 H Neutrophils # (Manual) 17.5 H Band Neutrophils # 2.1 H Lymphocytes (Manual) 0.8 Lymphocytes # 2.4 Reactive Lymphocytes # 0.2 H Monocytes # 1.0 H Monocytes # (Manual) 0.8 Eosinophils # 0.1 Basophils # 0.1 Nucleated Red Blood Cells # 0.0 Platelet Estimate NORMAL Poikilocytosis 1+ Anisocytosis 1+ Target Cells 1+ Sodium Level 138 Potassium Level 4.0 Chloride Level 107 Carbon Dioxide Level 23 Anion Gap 8 Blood Urea Nitrogen 14 Creatinine 1.04 Est Glomerular Filtrat > 60 Rate mL/min Glucose Level 61 #L Calcium Level 7.5 L Phosphorus Level 3.7 # Magnesium Level 1.7 Medications Current Medications Ondansetron HCl (Zofran Inj) 4 mg Q6H PRN IV NAUSEA AND/OR VOMITING; Start 11/30/18 at 21:00 Acetaminophen (Tylenol Liquid) 650 mg Q6H PRN PO PAIN LEVEL 1-3 OR FEVER Last administered on 12/02/18at 21:27; Admin Dose 650 MG; Start 11/30/18 at 21:00 Pantoprazole (Protonix Iv) 40 mg DAILY@06 IV Last administered on 12/04/18at 06:16; Admin Dose 40 MG; Start 12/01/18 at 06:00 Vancomycin HCl (Vanco Iv Per Pharmacy) VANCOMYCIN PER PHARMACY PER PROTOCOL XX ; Start 11/30/18 at 21:00 Piperacillin Sod/ Tazobactam Sod 100 ml @ 200 mls/hr Q6 IVPB Last administered on 12/04/18at 06:15; Admin Dose 200 MLS/HR; Start 12/01/18 at 00:00 Morphine Sulfate (morphine) 4 mg Q4H PRN IV SEVERE PAIN LEVEL 7-10 Last administered on 12/04/18at 06:15; Admin Dose 4 MG; Start 12/01/18 at 04:30 Clindamycin HCl/ Dextrose 50 ml @ 50 mls/hr Q8 IVPB Last administered on 12/04/18at 06:15; Admin Dose 50 MLS/HR; Start 12/01/18 at 06:00 Sodium Chloride 1,000 ml @ 100 mls/hr Q10H IV Last administered on 12/03/18at 21:35; Admin Dose 125 MLS/HR; Start 12/03/18 at 00:00 Norepinephrine 250 ml @ 1.875 mls/ hr TITRATE IV ; Start 12/03/18 at 08:30 Morphine Sulfate (morphine) 2 mg Q4H PRN IV MODERATE PAIN LEVEL 4-6 Last administered on 12/04/18at 03:16; Admin Dose 2 MG; Start 12/03/18 at 17:00 Vancomycin HCl 1.5 gm/Sodium Chloride 250 ml @ 83.333 mls/ hr Q12H IVPB ; Start 12/04/18 at 13:00 Miscellaneous Information (*Rx Drug Level Order Reminder*) VANCO TR ON @ 000 ONCE ONCE XX ; Start 12/06/18 at 00:00; Stop 12/06/18 at 00:01 Magnesium Sulfate 50 ml @ 25 mls/hr ONCE ONCE IVPB ; Start 12/04/18 at 08:30; Stop 12/04/18 at 10:29 Assessment/Plan Hospital Course (Demo Recall) MPRESSION AND PLAN: 1. Nida's gangrene requiring surgical excision. Continues wound care 2. History of human immunodeficiency virus. 3. History of hepatitis. 4. Advance diet as tolerated 5. Monitor H&H 6. Vasopressors if needed. 7. Tight glycemic management. 8. Continue current antibiotics pending cultures. Previously patient had grown MRSA. 9. Deep venous thrombosis and gastrointestinal prophylaxis. Continues ICU management likely stable for transfer to telemetry. DESIREE MARSHALL MD, [facility] Dec 04, 2018 09:01
--- NOTE | 2018-12-04 09:51 | CONS ---
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 * s/p dbridements x2 on 11/30/18 and most recent on 12/03/18. * He underwent incision and drainage of the abdominal wall all the way up to the lower ribs on the left side and also of the left thigh and right inguinal area and debridement of the scrotum and perineal area. * Admit w/septic shock -> Extubated 12/03/18 -- stable on supplemental O2 24H INTERVAL SUMMARY CURRENT ABX: DAY # 4=>Vanco IV + Zosyn + Clinda IV 12/04/185 12/04/185 * Awake and alert -stable post extubation yesterday * NOTED: Patient has not told family/friends about his HIV Dx and wants info PRIVATE HIV SURVEILLANCE STATUS * 12/02/18 (+)HIV AB confirmed -> BAEZ NAIVE * HIV resistance panel and Integrase Genotyping sent 11/03/18 * HLA-[id number] phenotyping sent - required for Rx Abacavir (Triumeq) if (-) OK for Abacavir * 12/03/18 CD4# @ 224# - CD4% @12% => Technically (+)AIDS per CD4% 12% with low CD4#224 in setting of SKEWED CBC DIFFERENTIAL w/Leukocytosis-> 80% NEUTs% and BANDEMIA with Lymphocyte percentage of DIFF markedly reduced to 10.8% in setting of bacteria infection. Nevertheless, his CD4% of the lower lymphocyte count qualifies him for Dx of (+)AIDS -- expect to see CD4# rise as leukoc ytosis due to neutrophilia/bandemia normalize. DIAGNOSTIC IMAGING * 12/02/18 CT ABD-PEL: IMPRESSION: * 1. LEFT LATERAL ABDOMINAL WALL FOCAL FLUID EXTENSIVE FOCAL FLUID COLLECTION, WHICH APPEARS TO BE INCREASED IN SIZE SINCE PRIOR EXAMINATION. THIS IS INTERPOSED BETWEEN THE LEFT INTERNAL AND EXTERNAL OBLIQUE MUSCLES AND THERE IS ASSOCIATED EDEMATOUS THICKENING OF THE MUSCLES, CONSISTENT WITH MYOSITIS. FINDINGS APPEAR TO BE INCREASED IN SIZE SINCE PRIOR STUDY D ATED NOVEMBER 30, 2018. THIS IS LOCATED AT THE LEVEL OF THE SPLEEN AND TRACKS INFERIORLY TO THE ANTERIOR LEFT PELVIS. * 2. Large amount of generalized anasarca, also increased since prior examination. * 3. Diffuse thickening of the villatoro of the scrotum. Several foci of air identified. There appears to be postsurgical changes. Correlate with clinical history. * 4. No gross intra-abdominal/pelvic free fluid or free air. No gross focal fluid collections. No significant retroperitoneal abnormality. * 5. No evidence of bowel obstruction. Fluid-filled loops of small bowel, which may represent gastroenteritis. * 6. Hepatosplenomegaly. 7. Probable gallbladder sludge. * 12/02/18 MRI BRAIN: IMPRESSION: * 1. No acute intracranial hemorrhage, infarction or mass. If clinical co ncern persists consider dedicated orbit MRI with contrast for further evaluation. * 2. A few small foci of white matter signal abnormality, which are nonspecific in appearance and may reflect complicated migraines, early microvascular ischemic disease, sequela from prior traumatic or inflammatory insults. * 3. Prompt retrocerebellar CSF space which may represent laila cisterna magna versus arachnoid cyst. * 4. Minimal generalized cerebral volume loss. * 5. Mild bilateral mastoid air cells effusions. MICRO * 12/02/18 BCX (-) * 12/02/18 SCROTAL WOUND CX: WOUND CULTURE Final Organism 1 METHICILLIN RESISTANT S.AUREUS QUANTITY 2+ . MULTI DRUG RESISTANT ORGANISM MRSA M.I.C. RX --------- --- CEFAZOLIN R CIPROFLOXACIN >=8 R CLINDAMYCIN <=0.25 S DOXYCYCLINE S ERYTHROMYCIN >=8 R LEVOFLOXACIN 4 R OXACILLIN R PENICILLIN-G >=0.5 R RIFAMPIN <=0.5 S VANCOMYCIN <=0.5 S TRIMETHOPRIM/SULFAMETHOXAZOLE 20 S * PHYSICAL EXAMINATION: GENERAL: VSS, NAD HEENT: Prior NECK: Supple, CHEST: Rise symmetrical HEART: Pulse RRR ABDOMEN: Benign EXTREMITIES: Warm, dry SKIN: No rash, no diaphoresis ID ASSESSMENT 42 yo M admit with: 1. Septic shock w/hypotension, fevers, leukocytosis due to #2 2. MRSA Nida's gangrene * s/p dbridements x2 on 11/30/18 and most recent on 12/03/18. * He underwent incision and drainage of the abdominal wall all the way up to the lower ribs on the left side and also of the left thigh and right inguinal area and debridement of the scrotum and perineal area. 3. History of human immunodeficiency virus-> BAEZ Naive * HIV Resistance and Integrase Genotyping + HLA-[id number] typing (for possible Triumeq) ordered prior to ARV med initiation 3. HBV w/HBV+Delta acute infection October 2017 w/repeat HBsAB Indeterminate and HBsAG (-) in JAN 2018 * => HE CLEARED THE VIRUS 4. Post operative mechanical ventilation ->EXTUBATED 12/03/18 5. Anemia * -He is following up with claims vice president as outpatient. He does not know what the diagnosis is, but he saw a retina specialist * MRI brain w/ 6. Acute renal insufficiency-resolving 7. Anemia (?)MRSA Nares ABX ALLERGIES: QUINOLONES INVASIVES: PIV, CURRENT ABX: DAY # 4 =>Vanco IV #4 + Start Bactrim DS 1T PO BID #1 + Flagyl IV #1 => DC TODAY: Zosyn + Clinda IV ID RECOMMENDATIONS/PLAN: 1. Concern too many broad spectrum ABX will lead to ABX associated diarrhea which ill complicate surgical site hygiene * Continue Vanco IV * He needs Bactrim DS technically for PJC Prophy * Will treat MRSA and less likely to result in ABX associated diarrhea-> Bactrim has excellent bioavailability via gut; will Rx Bactrim DS 1TAB PO Q12H with full glass H20 * Bactrim has good GNR coverage as well prophy * DC Zosyn which is renally cleared and too broad spectrum = highly associated w/ABX diarrhea * DC Clinda -- highly associated w/pseudomembranous colitis * Rx Rifampin 600mg IV * Rx Flagyl 500mg IV empiric anaerobic coverage 2. HIV STATUS RECOMMENDATIONS * NOTED: Patient has not told family/friends about his HIV Dx and wants Dx PRIVATE * Technically (+)AIDS per CD4% 12 with low CD4#224 in setting of SKEWED CBC DIFFERENTIAL w/Leukocytosis-> 80% NEUTs% and BANDEMIA with Lymphocyte percentage of DIFF markedly reduced to 10.8% in setting of bacteria infection. Nevertheless, his CD4% of the lower lymphocyte count qualifies him for Dx of (+)AIDS -- expect to see CD4# rise as leukocytosis due to neutrophilia/bandemia normalize. * NESTOR NAIVE -> Pending HIV Resistance Panel/Integrase Genotyping prior to initiation of ARV meds * TECHNICALLY NEEDS PJC/PCP PROPHY w/Bactrim - Will Rx as this will also Tx MRSA and less likely to cause ABX associated diarrhea . Consultation Date/Type/Reason Admit Date/Time Nov 30, 2018 at 20:47 Initial Consult Date 12/02/18 Requesting Provider: ROBIN TAVAREZ MD Date/Time of Note DATE: 12/04/18 TIME: 09:48 Exam/Review of Systems Exam Vitals Vital Signs Date Temp Pulse Resp B/P (MAP) Pulse Ox O2 O2 Flow FiO2 Time Delivery Rate 12/04/18 100 08:00 12/04/18 97.4 27 97/62 (74) 94 Room Air 08:00 12/04/18 2.0 04:00 12/03/18 30 11:55 Intake and Output 12/03/18 12/03/18 12/04/18 1515:00 23:00 07:00 IntakeIntake Total 817.5 ml 1450 ml 1125 ml OutputOutput Total 700 ml 870 ml 875 ml BalanceBalance 117.5 ml 580 ml 250 ml Results Result Diagram: 12/04/18 0415 12/04/18 0415 Results 24hrs Laboratory Tests Test 12/03/18 11:09 12/04/18 00:11 12/04/18 04:15 Blood Gas Specimen Source Blood arterial Arterial Blood Date Drawn 12/03/2018 12:12:04 PM Arterial Blood pH 7.386 (Temp corrected) Arterial Blood pCO2 37.4 (Temp correct) Arterial Blood HCO3 21.9 L Arterial Blood Base Excess -2.8 Arterial Blood 96.9 Oxygen Saturation Ketan Test ACCEPTAB Arterial Blood Gas Right Brachial Puncture Site Arterial 0.2 Blood Carboxyhemoglobin Arterial Blood Methemoglobin 0.2 Oxyhemoglobin Percent 96.5 Blood Gas Temperature 37.0 Blood Gas Modality VENT - CPAP FiO2 30.0 Blood Gas Pressure Support 7 Blood Gas Critical Value GAVINO DELAROSA Read Back Blood Gas Notified Whom BT Blood Gas Notified Time 12/03/2018 12:17:55 PM Vancomycin Level Trough 9.7 L White Blood Count 21.8 H Red Blood Count 2.85 L Hemoglobin 7.9 L Hematocrit 23.3 L Mean Corpuscular Volume 81.8 L Mean Corpuscular Hemoglobin 27.7 L Mean Corpuscular 33.9 Hemoglobin Concent Red Cell Distribution Width 15.4 H Platelet Count 303 Mean Platelet Volume 10.5 H Immature Granulocytes % 4.400 H Neutrophils % 79.3 H Segmented Neutrophils 78 H % (Manual) Band Neutrophils % (Manual) 10 H Lymphocytes % 10.8 L Lymphocytes % (Manual) 4 L Reactive Lymphocytes 1 H % (Manual) Monocytes % 4.5 Monocytes % (Manual) 4 Eosinophils % 0.6 Eosinophils % (Manual) 3 Basophils % 0.4 Nucleated Red Blood Cells % 0.2 H Immature Granulocytes # 0.970 H Neutrophils # 17.3 H Neutrophils # (Manual) 17.5 H Band Neutrophils # 2.1 H Lymphocytes (Manual) 0.8 Lymphocytes # 2.4 Reactive Lymphocytes # 0.2 H Monocytes # 1.0 H Monocytes # (Manual) 0.8 Eosinophils # 0.1 Basophils # 0.1 Nucleated Red Blood Cells # 0.0 Platelet Estimate NORMAL Poikilocytosis 1+ Anisocytosis 1+ Target Cells 1+ Sodium Level 138 Potassium Level 4.0 Chloride Level 107 Carbon Dioxide Level 23 Anion Gap 8 Blood Urea Nitrogen 14 Creatinine 1.04 Est Glomerular Filtrat > 60 Rate mL/min Glucose Level 61 #L Calcium Level 7.5 L Phosphorus Level 3.7 # Magnesium Level 1.7 Medications Medication Current Medications Ondansetron HCl (Zofran Inj) 4 mg Q6H PRN IV NAUSEA AND/OR VOMITING; Start 11/30/18 at 21:00 Acetaminophen (Tylenol Liquid) 650 mg Q6H PRN PO PAIN LEVEL 1-3 OR FEVER Last administered on 12/02/18at 21:27; Admin Dose 650 MG; Start 11/30/18 at 21:00 Pantoprazole (Protonix Iv) 40 mg DAILY@06 IV Last administered on 12/04/18at 06:1 6; Admin Dose 40 MG; Start 12/01/18 at 06:00 Vancomycin HCl (Vanco Iv Per Pharmacy) VANCOMYCIN PER PHARMACY PER PROTOCOL XX ; Start 11/30/18 at 21:00 Piperacillin Sod/ Tazobactam Sod 100 ml @ 200 mls/hr Q6 IVPB Last administered on 12/04/18at 06:15; Admin Dose 200 MLS/HR; Start 12/01/18 at 00:00 Morphine Sulfate (morphine) 4 mg Q4H PRN IV SEVERE PAIN LEVEL 7-10 Last administered on 12/04/18at 06:15; Admin Dose 4 MG; Start 12/01/18 at 04:30 Clindamycin HCl/ Dextrose 50 ml @ 50 mls/hr Q8 IVPB Last administered on 12/04/18at 06:15; Admin Dose 50 MLS/HR; Start 12/01/18 at 06:00 Sodium Chloride 1,000 ml @ 100 mls/hr Q10H IV Last administered on 12/03/18at 21:35; Admin Dose 125 MLS/HR; Start 12/03/18 at 00:00 Norepinephrine 250 ml @ 1.875 mls/ hr TITRATE IV ; Start 12/03/18 at 08:30 Morphine Sulfate (morphine) 2 mg Q4H PRN IV MODERATE PAIN LEVEL 4-6 Last administered on 12/04/18at 03:16; Admin Dose 2 MG; Start 12/03/18 at 17:00 Vancomycin HCl 1.5 gm/Sodium Chloride 250 ml @ 83.333 mls/ hr Q12H IVPB ; Start 12/04/18 at 13:00 Miscellaneous Information (*Rx Drug Level Order Reminder*) IGNACIO TR ON @ 000 ONCE ONCE XX ; Start 12/06/18 at 00:00; Stop 12/06/18 at 00:01 Magnesium Sulfate 50 ml @ 25 mls/hr ONCE ONCE IVPB ; Start 12/04/18 at 08:30; Stop 12/04/18 at 10:29 ROSS FERNANDES NP Dec 04, 2018 09:51
[2018-12-04] MEDS: SOD CHLORIDE 0.9% 1,000 ML IV SCH ×2 (09:54→17:37)
[2018-12-04] MEDS: TRIMETHOPRIM/SULFAMETHOX (DS) TAB PO SCH ×2 (11:30→21:35)
--- NOTE | 2018-12-04 13:12 | PN ---
Date/Time of Note Date/Time of Note DATE: 12/04/18 TIME: 13:08 Assessment/Plan VTE Prophylaxis Risk score (from [facility] [place])>0 risk: 3 SCD applied (from [facility] [place]): Yes Pharmacological prophylaxis: NA/contraindicated Pharm contraindication: surgical contra Lines/Catheters IV [facility]from [facility]): Peripheral IV Assessment/Plan Hospital Course 1. Fourier gangrene with necrotizing fasciitis Patient is status post initial debridement with urology Patient developed necrotizing fasciitis and is status post Incision and drainage of necrotizing fasciitis anterior abdominal wall left chest left thigh right thigh and left groin with surgery Patient had a repeat debridement of scrotum and penile area with urology Continue IV antibiotics with vancomycin and Flagyl as well as Bactrim Culture from wounds are growing MRSA ID consultation appreciated Continue daily dressing changes, morphine prior to changes 2. Sepsis: Secondary to above Broad-spectrum antibiotics as above Cultures show MRSA 3. History of HIV Patient had atypical serological markers from previous admissions Patient does indeed have HIV with RNA elevated, repeat antibody screen is positive ID consultation appreciated Patient's CD4 profile does suggest AIDS, patient does not want his family to know at this time 4. Acute renal insufficiency-resolving -IV fluid for now and treat sepsis 5. Left eye blindness This is been going on for the past few weeks He is following up with financial systems director as outpatient. He does not know what the diagnosis is, but he saw a retina specialist Follow-up with his financial systems director as outpatient 6. History of hep B Prophylaxis: SCDs DC planning: Continue dressing changes, anticipate downgrade from ICU in the next 1 to 2 days, patient will ultimately either need detention placement or home health Result Diagram: 12/04/18 0415 12/04/18 0415 Results 24hrs Laboratory Tests Test 12/04/18 00:11 12/04/18 04:15 Vancomycin Level Trough 9.7 L White Blood Count 21.8 H Red Blood Count 2.85 L Hemoglobin 7.9 L Hematocrit 23.3 L Mean Corpuscular Volume 81.8 L Mean Corpuscular Hemoglobin 27.7 L Mean Corpuscular Hemoglobin Concent 33.9 Red Cell Distribution Width 15.4 H Platelet Count 303 Mean Platelet Volume 10.5 H Immature Granulocytes % 4.400 H Neutrophils % 79.3 H Segmented Neutrophils % (Manual) 78 H Band Neutrophils % (Manual) 10 H Lymphocytes % 10.8 L Lymphocytes % (Manual) 4 L Reactive Lymphocytes % (Manual) 1 H Monocytes % 4.5 Monocytes % (Manual) 4 Eosinophils % 0.6 Eosinophils % (Manual) 3 Basophils % 0.4 Nucleated Red Blood Cells % 0.2 H Immature Granulocytes # 0.970 H Neutrophils # 17.3 H Neutrophils # (Manual) 17.5 H Band Neutrophils # 2.1 H Lymphocytes (Manual) 0.8 Lymphocytes # 2.4 Reactive Lymphocytes # 0.2 H Monocytes # 1.0 H Monocytes # (Manual) 0.8 Eosinophils # 0.1 Basophils # 0.1 Nucleated Red Blood Cells # 0.0 Platelet Estimate NORMAL Poikilocytosis 1+ Anisocytosis 1+ Target Cells 1+ Sodium Level 138 Potassium Level 4.0 Chloride Level 107 Carbon Dioxide Level 23 Anion Gap 8 Blood Urea Nitrogen 14 Creatinine 1.04 Est Glomerular Filtrat Rate mL/min > 60 Glucose Level 61 #L Calcium Level 7.5 L Phosphorus Level 3.7 # Magnesium Level 1.7 Subjective 24 Hr Interval Summary Constitutional: no complaints Exam/Review of Systems Exam Vitals Vital Signs Date Temp Pulse Resp B/P (MAP) Pulse Ox O2 O2 Flow FiO2 Time Delivery Rate 12/04/18 102 08:00 12/04/18 97.4 27 97/62 (74) 94 Room Air 08:00 12/04/18 2.0 04:00 12/03/18 30 11:55 Intake and Output 12/03/18 12/03/18 12/04/18 1515:00 23:00 07:00 IntakeIntake Total 817.5 ml 1450 ml 1125 ml OutputOutput Total 700 ml 870 ml 875 ml BalanceBalance 117.5 ml 580 ml 250 ml Constitutional: alert, oriented Respiratory: clear to auscultation Cardiovascular: regular rate and rhythm Gastrointestinal: soft; No distended Musculoskeletal: nl extremities to inspection Skin: other (Surgical scars) Results Results 24hrs Laboratory Tests Test 12/04/18 00:11 12/04/18 04:15 Vancomycin Level Trough 9.7 L White Blood Count 21.8 H Red Blood Count 2.85 L Hemoglobin 7.9 L Hematocrit 23.3 L Mean Corpuscular Volume 81.8 L Mean Corpuscular Hemoglobin 27.7 L Mean Corpuscular Hemoglobin Concent 33.9 Red Cell Distribution Width 15.4 H Platelet Count 303 Mean Platelet Volume 10.5 H Immature Granulocytes % 4.400 H Neutrophils % 79.3 H Segmented Neutrophils % (Manual) 78 H Band Neutrophils % (Manual) 10 H Lymphocytes % 10.8 L Lymphocytes % (Manual) 4 L Reactive Lymphocytes % (Manual) 1 H Monocytes % 4.5 Monocytes % (Manual) 4 Eosinophils % 0.6 Eosinophils % (Manual) 3 Basophils % 0.4 Nucleated Red Blood Cells % 0.2 H Immature Granulocytes # 0.970 H Neutrophils # 17.3 H Neutrophils # (Manual) 17.5 H Band Neutrophils # 2.1 H Lymphocytes (Manual) 0.8 Lymphocytes # 2.4 Reactive Lymphocytes # 0.2 H Monocytes # 1.0 H Monocytes # (Manual) 0.8 Eosinophils # 0.1 Basophils # 0.1 Nucleated Red Blood Cells # 0.0 Platelet Estimate NORMAL Poikilocytosis 1+ Anisocytosis 1+ Target Cells 1+ Sodium Level 138 Potassium Level 4.0 Chloride Level 107 Carbon Dioxide Level 23 Anion Gap 8 Blood Urea Nitrogen 14 Creatinine 1.04 Est Glomerular Filtrat Rate mL/min > 60 Glucose Level 61 #L Calcium Level 7.5 L Phosphorus Level 3.7 # Magnesium Level 1.7 Medications Medication Current Medications Ondansetron HCl (Zofran Inj) 4 mg Q6H PRN IV NAUSEA AND/OR VOMITING; Start 11/30/18 at 21:00 Acetaminophen (Tylenol Liquid) 650 mg Q6H PRN PO PAIN LEVEL 1-3 OR FEVER Last administered on 12/02/18at 21:27; Admin Dose 650 MG; Start 11/30/18 at 21:00 Pantoprazole (Protonix Iv) 40 mg DAILY@06 IV Last administered on 12/04/18at 06:16; Admin Dose 40 MG; Start 12/01/18 at 06:00 Vancomycin HCl (Vanco Iv Per Pharmacy) VANCOMYCIN PER PHARMACY PER PROTOCOL XX ; Start 11/30/18 at 21:00 Sodium Chloride 1,000 ml @ 100 mls/hr Q10H IV Last administered on 12/04/18at 09:54; Admin Dose 100 MLS/HR; Start 12/03/18 at 00:00 Norepinephrine 250 ml @ 1.875 mls/ hr TITRATE IV ; Start 12/03/18 at 08:30 Vancomycin HCl 1.5 gm/Sodium Chloride 250 ml @ 83.333 mls/ hr Q12H IVPB ; Start 12/04/18 at 13:00 Miscellaneous Information (*Rx Drug Level Order Reminder*) SRIDHARO TR ON @ 000 ONCE ONCE XX ; Start 12/06/18 at 00:00; Stop 12/06/18 at 00:01 Trimethoprim/ Sulfamethoxazole (Bactrim (Ds)) 1 tab BID PO ; Start 12/04/18 at 11:30 Metronidazole 100 ml @ 100 mls/hr Q8 IVPB ; Start 12/04/18 at 14:00 Morphine Sulfate (morphine) 2 mg Q2H PRN IV MOD TO SEVERE PAIN; Start 12/04/18 at 11:30 LAITH MCKEON Dec 04, 2018 13:12
[2018-12-04] MEDS: VANCOMYCIN HCL 1.5 GM in SOD CHLORIDE 0.9% 250 ML IVPB SCH (13:14)
[2018-12-04] MEDS: morphine 2 MG INJ IV PRN ×2 (13:28→21:34)
[2018-12-04] MEDS: metroNIDAZOLE 500 MG/NS (PMX) 100 ML IVPB SCH ×2 (13:56→21:35)
--- NOTE | 2018-12-04 14:52 | HPN ---
Date/Time of Note Date/Time of Note DATE: 12/04/18 TIME: 14:51 Interval H&P Admission Note Pt. seen H&P reviewed: Systems changes noted below Patient is stable hemodynamically however his white count is going up. On exam there is a new area of significant tenderness and redness and induration in the left lower flank. Patient needs additional debridement. KILEY PIERRE MD Dec 04, 2018 14:52
--- NOTE | 2018-12-04 17:28 | CONS ---
Consult Date/Type/Reason Admit Date/Time Nov 30, 2018 at 20:47 Initial Consult Date 12/02/18 Type of Consultation: Urology Reason for Consultation Nida gangrene and necrotizing fasciitis Requesting Provider: ROBIN TAVAREZ MD Date/Time of Note DATE: 12/04/18 TIME: 17:25 Subjective The patient is awake and has pain wherever he is touched Objective Vitals Vital Signs Date Temp Pulse Resp B/P (MAP) Pulse Ox O2 O2 Flow FiO2 Time Delivery Rate 12/04/18 100 16:00 12/04/18 109/70 99 Room Air 15:00 (83) 12/04/18 97.8 12:00 12/04/18 2.0 04:00 12/03/18 30 11:55 Intake and Output 12/03/18 12/03/18 12/04/18 1515:00 23:00 07:00 IntakeIntake Total 817.5 ml 1450 ml 1250 ml OutputOutput Total 700 ml 870 ml 875 ml BalanceBalance 117.5 ml 580 ml 375 ml Exam The dressing over the abdominal wound and scrotum and both thighs were changed. His Meade catheter is draining clear urine. Patient is less tachycardic today. Results/Medications Result Diagram: 12/04/18 0415 12/04/18 0415 Results 24 hrs Laboratory Tests Test 12/04/18 00:11 12/04/18 04:15 Vancomycin Level Trough 9.7 L White Blood Count 21.8 H Red Blood Count 2.85 L Hemoglobin 7.9 L Hematocrit 23.3 L Mean Corpuscular Volume 81.8 L Mean Corpuscular Hemoglobin 27.7 L Mean Corpuscular Hemoglobin Concent 33.9 Red Cell Distribution Width 15.4 H Platelet Count 303 Mean Platelet Volume 10.5 H Immature Granulocytes % 4.400 H Neutrophils % 79.3 H Segmented Neutrophils % (Manual) 78 H Band Neutrophils % (Manual) 10 H Lymphocytes % 10.8 L Lymphocytes % (Manual) 4 L Reactive Lymphocytes % (Manual) 1 H Monocytes % 4.5 Monocytes % (Manual) 4 Eosinophils % 0.6 Eosinophils % (Manual) 3 Basophils % 0.4 Nucleated Red Blood Cells % 0.2 H Immature Granulocytes # 0.970 H Neutrophils # 17.3 H Neutrophils # (Manual) 17.5 H Band Neutrophils # 2.1 H Lymphocytes (Manual) 0.8 Lymphocytes # 2.4 Reactive Lymphocytes # 0.2 H Monocytes # 1.0 H Monocytes # (Manual) 0.8 Eosinophils # 0.1 Basophils # 0.1 Nucleated Red Blood Cells # 0.0 Platelet Estimate NORMAL Poikilocytosis 1+ Anisocytosis 1+ Target Cells 1+ Sodium Level 138 Potassium Level 4.0 Chloride Level 107 Carbon Dioxide Level 23 Anion Gap 8 Blood Urea Nitrogen 14 Creatinine 1.04 Est Glomerular Filtrat Rate mL/min > 60 Glucose Level 61 #L Calcium Level 7.5 L Phosphorus Level 3.7 # Magnesium Level 1.7 Home Meds Reported Medications Prednisolone Acetate* (Pred Forte*) 5 Ml Susp, 1 DROP LEFT EYE Q1HOUR, EA 12/04/18 Medications Current Medications Ondansetron HCl (Zofran Inj) 4 mg Q6H PRN IV NAUSEA AND/OR VOMITING; Start 11/30/18 at 21:00 Acetaminophen (Tylenol Liquid) 650 mg Q6H PRN PO PAIN LEVEL 1-3 OR FEVER Last administered on 12/02/18at 21:27; Admin Dose 650 MG; Start 11/30/18 at 21:00 Pantoprazole (Protonix Iv) 40 mg DAILY@06 IV Last administered on 12/04/18at 06:16; Admin Dose 40 MG; Start 12/01/18 at 06:00 Vancomycin HCl (Vanco Iv Per Pharmacy) VANCOMYCIN PER PHARMACY PER PROTOCOL XX ; Start 11/30/18 at 21:00 Sodium Chloride 1,000 ml @ 100 mls/hr Q10H IV Last administered on 12/04/18at 09:54; Admin Dose 100 MLS/HR; Start 12/03/18 at 00:00 Norepinephrine 250 ml @ 1.875 mls/ hr TITRATE IV ; Start 12/03/18 at 08:30 Vancomycin HCl 1.5 gm/Sodium Chloride 250 ml @ 83.333 mls/ hr Q12H IVPB Last administered on 12/04/18at 13:14; Admin Dose 83.333 MLS/HR; Start 12/04/18 at 13:00 Miscellaneous Information (*Rx Drug Level Order Reminder*) VANCO TR ON @ 000 ONCE ONCE XX ; Start 12/06/18 at 00:00; Stop 12/06/18 at 00:01 Trimethoprim/ Sulfamethoxazole (Bactrim (Ds)) 1 tab BID PO ; Start 12/04/18 at 11:30 Metronidazole 100 ml @ 100 mls/hr Q8 IVPB Last administered on 12/04/18at 13:56; Admin Dose 100 MLS/HR; Start 12/04/18 at 14:00 Morphine Sulfate (morphine) 2 mg Q2H PRN IV MOD TO SEVERE PAIN Last administered on 12/04/18at 13:28; Admin Dose 2 MG; Start 12/04/18 at 11:30 Assessment/Plan Hospital Course (Demo Recall) 42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 He underwent incision and drainage of the abdominal wall all the way up to the lower ribs on the left side and also of the left thigh and right inguinal area and debridement of the scrotum and perineal area. Patient is awake and is going later on for debridement of his wounds. The dressing and the packing over the wounds have been changed. He does have good urine output. His white count still elevated. Infectious disease are following his antibiotic coverage. MRSA did grow from the abdominal wound as well. Patient will need to continue on the antibiotic and wound care and debridement as needed. GWEN BUCK MD Dec 04, 2018 17:28
[2018-12-04] MEDS ORDERED: MIDAZOLAM 1 MG/ML 2 ML INJ ONE (19:05)
[2018-12-04] MEDS ORDERED: BACITRACIN 50000 UNITS INJ ONE (19:16)
[2018-12-04] MEDS ORDERED: POLYMYXIN B 500000 UNIT INJ ONE (19:18)
--- NOTE | 2018-12-04 19:23 | PREAC ---
Date/Time of Note Date/Time of Note DATE: 12/04/18 TIME: 19:21 Anesthesia Eval and Record Evaluation Time Pre-Procedure Interview DATE: 12/04/18 TIME: 19:21 Age 42 Sex male NPO: 8 hrs Preoperative diagnosis Nida's gangrene Planned procedure Wound debridement Past Medical History Past Medical History: Includes Renal: MK Heme: Anemia Infection(s): HIV, Other (MRSA/Septic shock - improving) Surgery & Anesthesia Issues No known issue Meds Anticoagulation: No Beta Lynne within 24 hr: No Reason Beta Lynne not given: Pt. not on B-Lynne Reported Medications Prednisolone Acetate* (Pred Forte*) 5 Ml Susp, 1 DROP LEFT EYE Q1HOUR, EA 12/04/18 Current Medications Ondansetron HCl (Zofran Inj) 4 mg Q6H PRN IV NAUSEA AND/OR VOMITING; Start 11/30/18 at 21:00 Acetaminophen (Tylenol Liquid) 650 mg Q6H PRN PO PAIN LEVEL 1-3 OR FEVER Last administered on 12/02/18at 21:27; Admin Dose 650 MG; Start 11/30/18 at 21:00 Pantoprazole (Protonix Iv) 40 mg DAILY@06 IV Last administered on 12/04/18at 06:16; Admin Dose 40 MG; Start 12/01/18 at 06:00 Vancomycin HCl (Vanco Iv Per Pharmacy) VANCOMYCIN PER PHARMACY PER PROTOCOL XX ; Start 11/30/18 at 21:00 Sodium Chloride 1,000 ml @ 100 mls/hr Q10H IV Last administered on 12/04/18at 09:54; Admin Dose 100 MLS/HR; Start 12/03/18 at 00:00 Norepinephrine 250 ml @ 1.875 mls/ hr TITRATE IV ; Start 12/03/18 at 08:30 Vancomycin HCl 1.5 gm/Sodium Chloride 250 ml @ 83.333 mls/ hr Q12H IVPB Last administered on 12/04/18at 13:14; Admin Dose 83.333 MLS/HR; Start 12/04/18 at 13:00 Miscellaneous Information (*Rx Drug Level Order Reminder*) VANCO TR ON @ 000 ONCE ONCE XX ; Start 12/06/18 at 00:00; Stop 12/06/18 at 00:01 Trimethoprim/ Sulfamethoxazole (Bactrim (Ds)) 1 tab BID PO ; Start 12/04/18 at 11:30 Metronidazole 100 ml @ 100 mls/hr Q8 IVPB Last administered on 12/04/18at 13:56; Admin Dose 100 MLS/HR; Start 12/04/18 at 14:00 Morphine Sulfate (morphine) 2 mg Q2H PRN IV MOD TO SEVERE PAIN Last administered on 12/04/18at 13:28; Admin Dose 2 MG; Start 12/04/18 at 11:30 Meds reviewed: Yes Allergies Coded Allergies: No Known Allergy (Unverified , 01/31/18) Allergies Reviewed: Yes Labs/Studies Labs Reviewed: Reviewed by anesthesiologist Result Diagram: 12/04/18 0415 12/04/18 0415 Laboratory Tests 12/04/18 04:15 test: N/A Studies: ECG Pre-procedure Exam Last vitals Vital Signs Date Temp Pulse Resp B/P (MAP) Pulse Ox O2 O2 Flow FiO2 Time Delivery Rate 12/04/18 105 18 114/76 94 Room Air 18:00 (89) 12/04/18 97.5 16:00 12/04/18 2.0 04:00 12/03/18 30 11:55 Airway: Adequate mouth opening, Adequate thyromental dist Mallampati: Mallampati I Teeth: Normal Lung: Normal Heart: Normal ASA Physical Status ASA physical status: 3 Emergency: None Planned Anesthetic General/MAC: ETT, NG/OG Tube, A Line Pre-operative Attestations Prior to commencing anesthesia and surgery, the patient was re-evaluated, there was verification of: *The patient's identity *The results of appropriate recent lab work and preoperative vital signs *The above evaluation not changing prior to induction *Anesthetic plan, risk benefits, alternative and complications discussed with pa sridevint/family; questions answered; patient/family understands, accepts and wishes to proceed. YEVGENIY QUEZADA MD Dec 04, 2018 19:23
[2018-12-04] MEDS ORDERED: HYDROmorphONE 2 MG/ML SYG ONE (20:10)
[2018-12-04] MEDS ORDERED: SUGAMMADEX SODIUM 200 MG/2 ML VIAL IV ONE (20:13)
[2018-12-04] MEDS ORDERED: ONDANSETRON 4 MG INJ ONE (20:20)
--- NOTE | 2018-12-04 20:44 | PAC ---
Date/Time of Note Date/Time of Note DATE: 12/04/18 TIME: 20:42 Post-Anesthesia Notes Post-Anesthesia Note Last documented vital signs T101.2 HR 104 BP 135/78 Sp)2 100% RR 22 Vital Signs Date Temp Pulse Resp B/P (MAP) Pulse Ox O2 O2 Flow FiO2 Time Delivery Rate 12/04/18 109 25 109/75 93 Room Air 19:00 (86) 12/04/18 97.5 1.0 16:00 12/03/18 30 11:55 Activity: WNL Respiratory function: WNL Cardiovascular function: WNL Mental status: Baseline Pain reasonably controlled: Yes Hydration appropriate: Yes Nausea/Vomiting absent: Yes Comments Full sign to ICU team. YEVGENIY QUEZADA MD Dec 04, 2018 20:44
--- NOTE | 2018-12-04 22:13 | OPR ---
Date/Time of Note Date/Time of Note DATE: 12/04/18 TIME: 22:08 Operative Report Procedure Date: Dec 04, 2018 Preoperative Diagnosis Necrotizing fasciitis Postoperative Diagnosis Necrotizing fasciitis Operation/Procedure Performed Debridement of the necrotizing fasciitis left thigh Surgeon see signature line Geriatrician None Anesthesia Type: general Anesthesiologist: YEVGENIY QUEZADA MD Estimated Blood Loss: minimal Transfusion none Specimen Necrotic fascia Grafts/Implants none Complications none Pt Condition Post Procedure: critical Disposition: other (ICU) Indications 42-year-old male HIV positive with Nida gangrene after initial debridement by Dr. Damon few days ago developed redness and edema on the left side and left flank and left lower chest as well as a right thigh. CT scan confirmed significant amount of swelling and fluid underneath the external oblique fascia. He was taking for debridement 2 days ago with a severe necrotizing fasciitis of the left lower abdomen and left flank was found. He underwent extensive debridement and was brought back to the ICU. Over the 48 hours he did well however today the elevated white count was found and more redness induration in the dependent area in the left thigh. The decision was made to take him for additional debridement Procedure Description Patient was brought to the operating room positioned in the supine position with left side slightly elevated. General endotracheal anesthesia was induced. The dressing was removed as well as the packing. After that the entire left abdomen chest and thigh were prepped and draped in usual sterile fashion. I started by doing additional debridement at the previous wound at the upper edge towards the left axilla. Additional small amount of necrotic tissue was found which was debrided. After that I switch my attention to the left thigh with the long vertical incision was performed which was carried down through the subcutaneous tissue to the fascia which was found partially necrotic. Swelling and murky fluid were evacuated. The cultures were taken. The necrotic tissue was debrided. After that the loose packing with Kerlix soaked in normal saline was performed in all wounds. Sterile dressings were applied. To that the patient was transferred back to the ICU. KILEY PIERRE MD Dec 04, 2018 22:13
[2018-12-04] MEDS ORDERED: DILTIAZEM 25 MG INJ IV PRN (23:30)
[2018-12-05] VITALS (27 sets, daily range): BP systolic 103–145; BP diastolic 66–89; PULSE 89–107; RESP 12–27
[2018-12-05] MEDS: VANCOMYCIN HCL 1.5 GM in SOD CHLORIDE 0.9% 250 ML IVPB SCH ×2 (01:22→14:16)
[2018-12-05] MEDS: morphine 2 MG INJ IV PRN ×7 (01:29→22:29)
[2018-12-05] MEDS: PANTOPRAZOLE 40 MG INJ IV SCH (05:21)
[2018-12-05] MEDS: metroNIDAZOLE 500 MG/NS (PMX) 100 ML IVPB SCH ×3 (05:21→22:29)
--- NOTE | 2018-12-05 08:07 | PN ---
DATE: 12/05/2018 SUBJECTIVE: The patient is in serious but stable condition. The patient continues to have ongoing p ain. Urinary output has been adequate. OBJECTIVE: VITAL SIGNS: Blood pressure is 116/75, respiration 16, pulse 101, temperature 99.0. HEENT: Head is normocephalic. NECK: Supple. HEART: Regular rate. LUNGS: Show diminished breath sounds at the base. ABDOMEN: Soft, nontender to palpation without rebound or guarding. EXTREMITIES: Negative for clubbing, cyanosis, no edema. DERMATOLOGIC: No rashes. MUSCULOSKELETAL: Patient on chest exam has dressing clean, dry, intact. GENITOURINARY: The patient has noted dressing clean, dry, intact. MEDICATIONS: Have been reviewed. LABORATORY DATA: Has been reviewed. IMAGING STUDIES: Have been reviewed. ASSESSMENT AND PLAN: 1. Nonoliguric acute kidney injury with previously normal baseline creatinine of 0.8 mg/dL. Etiolog y of acute kidney injury is secondary to acute tubular necrosis, sepsis. The patient's renal functio n has improved. Continue IV fluids. Continue antibiotic therapy. 2. Hyponatremia secondary to acute kidney injury. Continue to monitor. 3. Anemia. Monitor hemoglobin and hematocrit levels. 4. Mineral bone disorder. Monitor calcium and phosphorus levels. 5. Severe sepsis secondary Nida gangrene, necrotizing fasciitis. The patient is status post inc ision and drainage. Continue broad spectrum antibiotics, continue IV fluids. 6. Respiratory failure, status post extubation, currently stable. 7. Encephalopathy, etiology is toxic metabolic. 8. History of human immunodeficiency virus. 9. History of . Dictated By: MANASA ANAYA/MESFIN Conf#: [id number] DID#: [id number] CC: PARIS ARROYO MD;*EndCC*
[2018-12-05] MEDS: TRIMETHOPRIM/SULFAMETHOX (DS) TAB PO SCH ×2 (08:24→20:07)
[2018-12-05] MEDS: SOD CHLORIDE 0.9% 1,000 ML IV SCH ×2 (09:00→14:17)
--- NOTE | 2018-12-05 09:58 | CONS ---
Assessment/Plan Assessment/Plan Assessment/Plan (Daily) Assessment and recommendations; 1. Patient admitted for Nida's gangrene status post surgical debridement. Patient is hemodynamically stable. 2. History of diabetes. 3. Mild anemia. 4. Persistent leukocytosis. Patient currently on appropriate antimicrobial regimen. MRSA isolated from wound. 5. History of hepatitis. Continue current supportive care. Patient responding well to current treatment regimen. Consultation Date/Type/Reason Admit Date/Time Nov 30, 2018 at 20:47 Initial Consult Date 12/02/18 Type of Consult Pulmonary/critical care Patient condition is stable. Denies shortness of breath. Complains of mild abdominal pain. Denies any nausea vomiting. General exam; young male, awake alert, currently no distress. Reason for Consultation HEENT exam; supple neck, no JVD. No lymphadenopathy. Midline trachea. No thyromegaly. Patient has fair dentition. Pupils are midsize and reactive to light. Chest exam; diminished but clear breath sounds. S1-S2 audible, no murmurs. R egular rhythm. Abdomen exam; soft, lower abdominal dressing in place. Bowel sounds audible. Mildly tender. Extremity exam; no peripheral edema. [employer] exam; no focal deficit. Requesting Provider: ROBIN TAVAREZ MD Date/Time of Note DATE: 12/05/18 TIME: 09:55 Exam/Review of Systems Exam Vitals Vital Signs Date Temp Pulse Resp B/P (MAP) Pulse Ox O2 O2 Flow FiO2 Time Delivery Rate 12/05/18 101 16 116/75 97 Room Air 06:00 (89) 12/05/18 99.0 04:00 12/04/18 1.0 16:00 12/03/18 30 11:55 Intake and Output 12/04/18 12/04/18 12/05/18 1515:00 23:00 07:00 IntakeIntake Total 1338.333 ml 1216.666 ml 1650 ml OutputOutput Total 685 ml 460 ml 560 ml BalanceBalance 653.333 ml 756.666 ml 1090 ml Results Result Diagram: 12/05/18 0500 12/05/18 0500 Results 24hrs Laboratory Tests Test 12/05/18 05:00 White Blood Count 18.6 H Red Blood Count 2.88 L Hemoglobin 7.9 L Hematocrit 23.3 L Mean Corpuscular Volume 80.9 L Mean Corpuscular Hemoglobin 27.4 L Mean Corpuscular Hemoglobin Concent 33.9 Red Cell Distribution Width 15.4 H Platelet Count 269 Mean Platelet Volume 10.2 Immature Granulocytes % 3.400 H Neutrophils % 80.0 H Lymphocytes % 12.3 L Monocytes % 3.6 Eosinophils % 0.5 Basophils % 0.2 Nucleated Red Blood Cells % 0.1 H Immature Granulocytes # 0.640 H Neutrophils # 14.9 H Lymphocytes # 2.3 Monocytes # 0.7 Eosinophils # 0.1 Basophils # 0.0 Nucleated Red Blood Cells # 0.0 Sodium Level 134 L Potassium Level 3.6 Chloride Level 104 Carbon Dioxide Level 24 Anion Gap 6 Blood Urea Nitrogen 9 Creatinine 0.71 Est Glomerular Filtrat Rate mL/min > 60 Glucose Level 95 Calcium Level 6.9 L Phosphorus Level 3.0 Magnesium Level 1.7 Medications Medication Current Medications Ondansetron HCl (Zofran Inj) 4 mg Q6H PRN IV NAUSEA AND/OR VOMITING; Start 11/30/18 at 21:00 Acetaminophen (Tylenol Liquid) 650 mg Q6H PRN PO PAIN LEVEL 1-3 OR FEVER Last administered on 12/02/18at 21:27; Admin Dose 650 MG; Start 11/30/18 at 21:00 Pantoprazole (Protonix Iv) 40 mg DAILY@06 IV Last administered on 12/05/18at 05:21; Admin Dose 40 MG; Start 12/01/18 at 06:00 Vancomycin HCl (Vanco Iv Per Pharmacy) VANCOMYCIN PER PHARMACY PER PROTOCOL XX ; Start 11/30/18 at 21:00 Sodium Chloride 1,000 ml @ 100 mls/hr Q10H IV Last administered on 12/04/18at 09:54; Admin Dose 100 MLS/HR; Start 12/03/18 at 00:00 Norepinephrine 250 ml @ 1.875 mls/ hr TITRATE IV ; Start 12/03/18 at 08:30 Vancomycin HCl 1.5 gm/Sodium Chloride 250 ml @ 83.333 mls/ hr Q12H IVPB Last administered on 12/05/18at 01:22; Admin Dose 83.333 MLS/HR; Start 12/04/18 at 13:00 Miscellaneous Information (*Rx Drug Level Order Reminder*) VANCO TR ON @ 000 ONCE ONCE XX ; Start 12/06/18 at 00:00; Stop 12/06/18 at 00:01 Trimethoprim/ Sulfamethoxazole (Bactrim (Ds)) 1 tab BID PO Last administered on 12/05/18 08:24; Admin Dose 1 TAB; Start 12/04/18 at 11:30 Metronidazole 100 ml @ 100 mls/hr Q8 IVPB Last administered on 12/05/18 05:21; Admin Dose 100 MLS/HR; Start 12/04/18 at 14:00 Morphine Sulfate (morphine) 2 mg Q2H PRN IV MOD TO SEVERE PAIN Last administ ered on 12/05/18 08:13; Admin Dose 2 MG; Start 12/04/18 at 11:30 SPRING RAMIREZ Dec 05, 2018 09:58
--- NOTE | 2018-12-05 14:15 | CONS ---
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 * s/p dbridements x2 on 11/30/18 and most recent on 12/03/18. * He underwent incision and drainage of the abdominal wall all the way up to the lower ribs on the left side and also of the left thigh and right inguinal area and debridement of the scrotum and perineal area. * Admit w/septic shock -> Extubated 12/03/18 -- stable on supplemental O2 24H INTERVAL SUMMARY CURRENT ABX: DAY # 5=>Vanco IV #5+ BACTRIM PO #2 + Flagyl IV #2 s/p + Zosyn + Clinda IV HIV ARV MEDS: Starting Truvada + Combivir in am 12/06/18 * NEW PICC LINE 12/04/18 * No fevers, WBC down today, VSS * Lethargic in ICU, VSS, extensive debridement suprapubic->ABD wall /perineal/thighs * NOTED: Patient has not told family/friends about his HIV Dx and wants info PRIVATE HIV SURVEILLANCE STATUS * 12/02/18 (+)HIV AB confirmed -> BAEZ NAIVE * HIV resistance panel and Integrase Genotyping sent 11/03/18 * [id number] phenotyping sent - required for Rx Abacavir (Triumeq) if (-) OK for Abacavir * 12/03/18 CD4# @ 224# - CD4% @12% => Technically (+)AIDS per CD4% 12% with low CD4#224 in setting of SKEWED CBC DIFFERENTIAL w/Leukocytosis-> 80% NEUTs% and BANDEMIA with Lymphocyte percentage of DIFF markedly reduced to 10.8% in setting of bacteria infection. Nevertheless, his CD4% of the lower lymphocyte count qualifies him for Dx of (+)AIDS -- expect to see CD4# rise as leukocytosis due to neutrophilia/bandemia normalize. MICRO * 12/04/18 THIGH TISSUE (BIOPSY) CULTURE Preliminary NO GROWTH AFTER 1 DAY * ABD CX: (+)MRSA * 12/02/18 BCX (-) * 12/02/18 SCROTAL WOUND CX: WOUND CULTURE Final Organism 1 METHICILLIN RESISTANT S.AUREUS QUANTITY 2+ . MULTI DRUG RESISTANT ORGANISM MRSA M.I.C. RX --------- --- CEFAZOLIN R CIPROFLOXACIN >=8 R CLINDAMYCIN <=0.25 S DOXYCYCLINE S ERYTHROMYCIN >=8 R LEVOFLOXACIN 4 R OXACILLIN R PENICILLIN-G >=0.5 R RIFAMPIN <=0.5 S VANCOMYCIN <=0.5 S TRIMETHOPRIM/SULFAMETHOXAZOLE 20 S DIAGNOSTIC IMAGING * 12/02/18 CT ABD-PEL: IMPRESSION: * 1. LEFT LATERAL ABDOMINAL WALL FOCAL FLUID EXTENSIVE FOCAL FLUID COLLECTION, WHICH APPEARS TO BE INCREASED IN SIZE SINCE PRIOR EXAMINATION. THIS IS INTERPOSED BETWEEN THE LEFT INTERNAL AND EXTERNAL OBLIQUE MUSCLES AND THERE IS ASSOCIATED EDEMATOUS THICKENING OF THE MUSCLES, CONSISTENT WITH MYOSITIS. FINDINGS APPEAR TO BE INCREASED IN SIZE SINCE PRIOR STUDY DATED NOVEMBER 30, 2018. THIS IS LOCATED AT THE LEVEL OF THE SPLEEN AND TRACKS INFERIORLY TO THE ANTERIOR LEFT PELVIS. * 2. Large amount of generalized anasarca, also increased since prior examination. * 3. Diffuse thickening of the villatoro of the scrotum. Several foci of air identified. There appears to be postsurgical changes. Correlate with clinical history. * 4. No gross intra-abdominal/pelvic free fluid or free air. No gross focal fluid collections. No significant retroperitoneal abnormality. * 5. No evidence of bowel obstruction. Fluid-filled loops of small bowel, which may represent gastroenteritis. * 6. Hepatosplenomegaly. 7. Probable gallbladder sludge. * 12/02/18 MRI BRAIN: IMPRESSION: * 1. No acute intracranial hemorrhage, infarction or mass. If clinical concern persists consider dedicated orbit MRI with contrast for further evaluation. * 2. A few small foci of white matter signal abnormality, which are nonspecific in appearance and may reflect complicated migraines, early microvascular ischemic disease, sequela from prior traumatic or inflammatory insults. * 3. Prompt retrocerebellar CSF space which may represent laila cisterna magna versus arachnoid cyst. * 4. Minimal generalized cerebral volume loss. * 5. Mild bilateral mastoid air cells effusions. PHYSICAL EXAMINATION: GENERAL: VSS, NAD HEENT: Prior NECK: Supple, CHEST: Rise symmetrical HEART: Pulse RRR ABDOMEN: Benign EXTREMITIES: Warm, dry SKIN: No rash, no diaphoresis ID ASSESSMENT 42 yo M admit with: 1. Septic shock w/hypotension, fevers, leukocytosis due to #2 2. MRSA Nida's gangrene * s/p dbridements x2 on 11/30/18 and most recent on 12/03/18. * He underwent incision and drainage of the abdominal wall all the way up to the lower ribs on the left side and also of the left thigh and right inguinal area and debridement of the scrotum and perineal area. 3. History of human immunodeficiency virus-> BAEZ Naive * HIV Resistance and Integrase Genotyping + HLA-B5701 typing (for possible Triumeq) ordered prior to ARV med initiation 3. HBV w/HBV+Delta acute infection October 2017 w/repeat HBsAB Indeterminate and HBsAG (-) in JAN 2018 * => HE CLEARED THE VIRUS 4. Post operative mechanical ventilation ->EXTUBATED 12/03/18 5. Anemia * -He is following up with [facility]. He does not know what the diagnosis is, but he saw a retina specialist * MRI brain w/ . Acute renal insufficiency-resolving 7. Anemia (?)MRSA Nares ABX ALLERGIES: QUINOLONES INVASIVES: PIV, CURRENT ABX: DAY # 5=>Vanco IV #5+ BACTRIM PO #2 + Flagyl IV #2 s/p + Zosyn + Clinda IV HIV ARV MEDS: Starting Truvada + Combivir in am 12/06/18 ID RECOMMENDATIONS/PLAN: 1. Concern too many broad spectrum ABX will lead to ABX associated diarrhea whic h ill complicate surgical site hygiene; hence Clinda and Zosyn DC'd with ABX spectrum narrowed to target MRSA "Double coverage" with Vanco IV + Bactrim PO + Anaerobic coverage * Continue Vanco IV * He needs Bactrim DS technically for PJC Prophy * Will treat MRSA and less likely to result in ABX associated diarrhea-> Bactrim has excellent bioavailability via gut; will Rx Bactrim DS 1TAB PO Q12H with full glass H20 * Bactrim has good GNR coverage as well prophy * DC Zosyn which is renally cleared and too broad spectrum = highly associated w/ABX diarrhea * DC Clinda -- highly associated w/pseudomembranous colitis * Rx Flagyl 500mg IV empiric anaerobic coverage 2. HIV STATUS RECOMMENDATIONS * NOTED: Patient has not told family/friends about his HIV Dx and wants Dx PRIVATE * Technically (+)AIDS per CD4% 12 with low CD4#224 in setting of SKEWED CBC DIFFERENTIAL w/Leukocytosis-> 80% NEUTs% and BANDEMIA with Lymphocyte percentage of DIFF markedly reduced to 10.8% in setting of bacteria infection. Nevertheless, his CD4% of the lower lymphocyte count qualifies him for Dx of (+)AIDS -- expect to see CD4# rise as leukocytosis due to neutrophilia/bandemia normalize. 2. INITIAL BAEZ RECOMMENDATIONS : STARTING TRUVADA + COMBIVIR IN AM 12/06/18 * Rationale below: 1. TRUVADA/Descovy ARV med of choice with HBV ([facility] does not carry preferred Descovy on formulary = less renal toxic) 2. COMBIVIR -- has Lamuvidine ARV med of choice with hx HBV * [facility] DOES NOT CARRY DESCOVY -- yet [facility] does have Truvada + Dolutegravir on formulary which is approved by CDC as 1st line ARV med initiation. TRUVADA carries risk of renal toxicity due to TENOFOVIR disoproxil fumarate (while Descovy has the non-toxic TENOFOVIR alafenamide). Unfortunately [facility] formulary has not been updated with the preferred DESCOVY over Truvada. TRUVADA/DESCOVY ARV MED OF CHOICE W/HX OF HBV. * [facility] Carries GENVOYA =not a candidate for GENVOYA/STRIBILD = GENVOYA contraindicated w/HEP B as it can cause recurrence/flare of HEP B * Alternative: TRIUMEQ GOOD CHOICE as it is not renal toxic; however HLA*B5701 typing must be NEGATIVE and [facility] DOES NOT CARRY TRIUMEQ. * -> Pending HIV Resistance Panel/Integrase Genotyping, HLA*B5701 pending == This can be reviewed after initiation of ARV meds * TECHNICALLY NEEDS PJC/PCP PROPHY w/Bactrim - Will Rx as this will also Tx MRSA and less likely to cause ABX associated diarrhea 3. HIV BASIC EDUCATION AND ARV MED EDUCATION INCLUDING POSSIBLE SIDE EFFECT COMPLETED WITH PATIENT TODAY. * .I spend about 45 minutes patient education today. He wants me to speak with his GF; they both have genital HSV which means they both carry higher risk for transmitting HIV. He does not want to tell his GF, nor his mother who is flying in from [facility] [place]. He believes that his mother with only get "freaked out" and does not want to upset her. He will tell his GF; however she too will be upset and he does not want to upset her at this time when his parents are arriving today. Timing is not appropriate for disclosure to his GF. If I am back in 2-weeks and he is still here, I will be happy to sit with him and his GF and break the news. Patient was very comfortable with my knowledge, encouragement that his prognosis in terms of HIV is excellent as long as he adheres to daily ARV med and upon DC gets established with OP HIV Clinic. He is applying for insurance. He can be referred to Dr. Bajwa, HIV clinic in [place] upon discharge; or an alternative HIV clinic in an location he prefers. * Patient demonstrated excellent grasp of all HIV basic education and ARV med, in particular NEED TO TAKE MEDS SAME TIME EVERY DAY DO NOT MISS DOSE, DO NOT SKIP DOSES, If not able to take the meds for any reason (i.e N/V/D, NPO, lack of supply, forgetfullness) BEST TO SIMPLY STOP ALL MEDS UNTIL they can be resumed on daily basis same time of day. JANNET PATIENT INSERT HAND-OUT REVIEWED AND PROVIDED TO PATIENT [id number] - TCCHMPEPARTruvada, INN-Emtricitabine/Tenofovir Disoproxil Possible side effects Like all medicines, this medicine can cause side effects, although not everybody gets them. Possible serious side effects: h Lactic acidosis (excess lactic acid in the blood) is a rare but potentially life-threatening side effect. Lactic acidosis occurs more often in women, particularly if they are overweight, and in people with liver disease. The following may be signs of lactic acidosis: h deep rapid breathing h drowsiness h feeling sick (nausea), being sick (vomiting) h stomach pain If you think you may have lactic acidosis, get medical help immediately. h Any signs of inflammation or infection. In some patients with advanced HIV infection (AIDS) and a history of opportunistic infections (infections that occur in people with a weak immune system), signs and symptoms of inflammation from previous infections may occur soon after anti-HIV treatment is started. It is thought that these symptoms are due to an improvement in the bodys immune response, enabling the body to fight infections that may have been present with no obvious symptoms. h Autoimmune disorders, when the immune system attacks healthy body tissue, may also occur after you start taking medicines to treat HIV infection. Autoimmune disorders may occur many months after the start of treatment. Look out for any symptoms of infection or other symptoms such as: h muscle weakness h weakness beginning in the hands and feet and moving up towards the trunk of the body h palpitations, tremor or hyperactivity If you notice these or any symptoms of inflammation or infection, get medical help immediately. Possible side effects: Very common side effects (may affect more than 1 in 10 people) h diarrhoea, being sick (vomiting), feeling sick (nausea) h dizziness, headache h rash h feeling weak 8 Tests may also show: h decreases in phosphate in the blood h increased creatine kinase Common side effects (may affect up to 1 in 10 people) h pain, stomach pain h difficulty sleeping, abnormal dreams h problems with digestion resulting in discomfort after meals, feeling bloated, flatulence h rashes (including red spots or blotches sometimes with blistering and swelling of the skin), which may be allergic reactions, itching, changes in skin colour including darkening of the skin in patches h other allergic reactions, such as wheezing, swelling or feeling light-headed Tests may also show: h low white blood cell count (a reduced white blood cell count can make you more prone to infection) h increased triglycerides (fatty acids), bile or sugar in the blood h liver and pancreas problems Uncommon side effects (may affect up to 1 in 100 people) h pain in the abdomen (tummy) caused by inflammation of the pancreas h swelling of the face, lips, tongue or throat h anaemia (low red blood cell count) h breakdown of muscle, muscle pain or weakness which may occur due to damage to the kidney tubule cells Tests may also show: h decreases in potassium in the blood h increased creatinine in your blood h changes to your urine Rare side effects (may affect up to 1 in 1,000 people) h Lactic acidosis (see Possible serious side effects) h fatty liver h yellow skin or eyes, itching, or pain in the abdomen (tummy) caused by inflammation of the liver h inflammation of the kidney, passing a lot of urine and feeling thirsty, kidney failure, damage to kidney tubule cells h softening of the bones (with bone pain and sometimes resulting in fractures) h back pain caused by kidney problems Damage to kidney tubule cells may be associated with breakdown of muscle, softening of the bones (with bone pain and sometimes resulting in fractures), muscle pain, muscle weakness and decreases in potassium or phosphate in the blood. If you notice any of the side effects listed above or if any of the side effects get serious, talk to your doctor or pharmacist. [id number] - TCCHMPEPARTruvada, INN-Emtricitabine/Tenofovir Disoproxil Bone problems. Some patients taking combination antiretroviral medicines such as Truvada may develop a bone disease called osteonecrosis ( of bone tissue caused by loss of blood supply to the bone). Taking this type of medicine for a long time, taking corticosteroids, drinking alcohol, having a very weak immune system, and being overweight, may be some of the many risk factors for developing this disease. Signs of osteonecrosis are: h joint stiffness h joint aches and pains (especially of the hip, knee and shoulder) h difficulty with movement If you notice any of these symptoms tell your doctor. During treatment for HIV there may be an increase in weight and in levels of blood lipids and glucose. This is partly linked to restored health and life style, and in the case of blood lipids sometimes to the HIV medicines themselves. Your doctor will test for these changes. ```````````````````````````````````````````````````````````````````````````` `````````````````````````````````````````````````````````````````````````````` Consultation Date/Type/Reason Admit Date/Time Nov 30, 2018 at 20:47 Initial Consult Date 12/02/18 Requesting Provider: ROBIN TAVAREZ MD Date/Time of Note DATE: 12/05/18 TIME: 12:18 Exam/Review of Systems Exam Vitals Vital Signs Date Temp Pulse Resp B/P (MAP) Pulse Ox O2 O2 Flow FiO2 Time Delivery Rate 12/05/18 103 22 108/86 95 Room Air 09:00 (93) 12/05/18 98.9 08:00 12/04/18 1.0 16:00 12/03/18 30 11:55 Intake and Output 12/04/18 12/04/18 12/05/18 1515:00 23:00 07:00 IntakeIntake Total 1338.333 ml 1216.666 ml 1650 ml OutputOutput Total 685 ml 460 ml 560 ml BalanceBalance 653.333 ml 756.666 ml 1090 ml Results Result Diagram: 12/05/18 0500 12/05/18 0500 Results 24hrs Laboratory Tests Test 12/05/18 05:00 White Blood Count 18.6 H Red Blood Count 2.88 L Hemoglobin 7.9 L Hematocrit 23.3 L Mean Corpuscular Volume 80.9 L Mean Corpuscular Hemoglobin 27.4 L Mean Corpuscular Hemoglobin Concent 33.9 Red Cell Distribution Width 15.4 H Platelet Count 269 Mean Platelet Volume 10.2 Immature Granulocytes % 3.400 H Neutrophils % 80.0 H Lymphocytes % 12.3 L Monocytes % 3.6 Eosinophils % 0.5 Basophils % 0.2 Nucleated Red Blood Cells % 0.1 H Immature Granulocytes # 0.640 H Neutrophils # 14.9 H Lymphocytes # 2.3 Monocytes # 0.7 Eosinophils # 0.1 Basophils # 0.0 Nucleated Red Blood Cells # 0.0 Sodium Level 134 L Potassium Level 3.6 Chloride Level 104 Carbon Dioxide Level 24 Anion Gap 6 Blood Urea Nitrogen 9 Creatinine 0.71 Est Glomerular Filtrat Rate mL/min > 60 Glucose Level 95 Calcium Level 6.9 L Phosphorus Level 3.0 Magnesium Level 1.7 Medications Medication Current Medications Ondansetron HCl (Zofran Inj) 4 mg Q6H PRN IV NAUSEA AND/OR VOMITING; Start 11/30/18 at 21:00 Acetaminophen (Tylenol Liquid) 650 mg Q6H PRN PO PAIN LEVEL 1-3 OR FEVER Last administered on 7/5/19at 21:27; Admin Dose 650 MG; Start 11/30/18 at 21:00 Pantoprazole (Protonix Iv) 40 mg DAILY@06 IV Last administered on 12/05/18 05:21; Admin Dose 40 MG; Start 12/01/18 at 06:00 Vancomycin HCl (Vanco Iv Per Pharmacy) VANCOMYCIN PER PHARMACY PER PROTOCOL XX ; Start 11/30/18 at 21:00 Sodium Chloride 1,000 ml @ 100 mls/hr Q10H IV Last administered on 12/04/18 09:54; Admin Dose 100 MLS/HR; Start 12/03/18 at 00:00 Norepinephrine 250 ml @ 1.875 mls/ hr TITRATE IV ; Start 12/03/18 at 08:30 Vancomycin HCl 1.5 gm/Sodium Chloride 250 ml @ 83.333 mls/ hr Q12H IVPB Last administered on 12/05/18 01:22; Admin Dose 83.333 MLS/HR; Start 12/04/18 at 13:00 Miscellaneous Information (*Rx Drug Level Order Reminder*) VANCO TR ON @ 000 ONCE ONCE XX ; Start 12/06/18 at 00:00; Stop 12/06/18 at 00:01 Trimethoprim/ Sulfamethoxazole (Bactrim (Ds)) 1 tab BID PO Last administered on 12/05/18 08:24; Admin Dose 1 TAB; Start 12/04/18 at 11:30 Metronidazole 100 ml @ 100 mls/hr Q8 IVPB Last administered on 12/05/18 05:21; Admin Dose 100 MLS/HR; Start 12/04/18 at 14:00 Morphine Sulfate (morphine) 2 mg Q2H PRN IV MOD TO SEVERE PAIN Last administered on 12/05/18 11:24; Admin Dose 2 MG; Start 12/04/18 at 11:30 ROSS FERNANDES NP Dec 05, 2018 12:28
[2018-12-05] MEDS ORDERED: morphine 2 MG INJ IV STA (14:59)
[2018-12-05] MEDS ORDERED: MAGNESIUM SULFATE 2 GM/50 ML 50 ML IVPB ONE (15:30)
--- NOTE | 2018-12-05 18:47 | CONS ---
Consult Date/Type/Reason Admit Date/Time Nov 30, 2018 at 20:47 Initial Consult Date 12/02/18 Type of Consultation: Urology Reason for Consultation Nida gangrene Requesting Provider: ROBIN TAVAREZ MD Date/Time of Note DATE: 12/05/18 TIME: 18:45 Subjective The patient is awake however he appears to be depressed. He complains of pain over the incisions Objective Vitals Vital Signs Date Temp Pulse Resp B/P (MAP) Pulse Ox O2 O2 Flow FiO2 Time Delivery Rate 12/05/18 99 16:00 12/05/18 98.0 27 120/89 100 Room Air 15:00 (99) 12/04/18 1.0 16:00 12/03/18 30 11:55 Intake and Output 12/04/18 12/04/18 12/05/18 1515:00 23:00 07:00 IntakeIntake Total 1338.333 ml 1216.666 ml 1750 ml OutputOutput Total 685 ml 460 ml 560 ml BalanceBalance 653.333 ml 756.666 ml 1190 ml Exam Patient is awake and comfortable the wound care nurse changed his dressings earlier today. The Meade catheter is draining clear urine Results/Medications Result Diagram: 12/05/18 0500 12/05/18 0500 Results 24 hrs Laboratory Tests Test 12/05/18 05:00 White Blood Count 18.6 H Red Blood Count 2.88 L Hemoglobin 7.9 L Hematocrit 23.3 L Mean Corpuscular Volume 80.9 L Mean Corpuscular Hemoglobin 27.4 L Mean Corpuscular Hemoglobin Concent 33.9 Red Cell Distribution Width 15.4 H Platelet Count 269 Mean Platelet Volume 10.2 Immature Granulocytes % 3.400 H Neutrophils % 80.0 H Lymphocytes % 12.3 L Monocytes % 3.6 Eosinophils % 0.5 Basophils % 0.2 Nucleated Red Blood Cells % 0.1 H Immature Granulocytes # 0.640 H Neutrophils # 14.9 H Lymphocytes # 2.3 Monocytes # 0.7 Eosinophils # 0.1 Basophils # 0.0 Nucleated Red Blood Cells # 0.0 Sodium Level 134 L Potassium Level 3.6 Chloride Level 104 Carbon Dioxide Level 24 Anion Gap 6 Blood Urea Nitrogen 9 Creatinine 0.71 Est Glomerular Filtrat Rate mL/min > 60 Glucose Level 95 Calcium Level 6.9 L Phosphorus Level 3.0 Magnesium Level 1.7 Home Meds Reported Medications Atropine Sulfate/0.9 %Sod Chlr (Atropine 0.01%-Ns Eye Drops) 10 Ml Drops, 1 ML OP BID, #1 12/05/18 Prednisolone Acetate* (Pred Forte*) 5 Ml Susp, 1 DROP LEFT EYE Q1HOUR, EA 12/04/18 Medications Current Medications Ondansetron HCl (Zofran Inj) 4 mg Q6H PRN IV NAUSEA AND/OR VOMITING; Start 11/30/18 at 21:00 Acetaminophen (Tylenol Liquid) 650 mg Q6H PRN PO PAIN LEVEL 1-3 OR FEVER Last administered on 12/02/18at 21:27; Admin Dose 650 MG; Start 11/30/18 at 21:00 Vancomycin HCl (Vanco Iv Per Pharmacy) VANCOMYCIN PER PHARMACY PER PROTOCOL XX ; Start 11/30/18 at 21:00 Sodium Chloride 1,000 ml @ 100 mls/hr Q10H IV Last administered on 12/05/18at 14:17; Admin Dose 100 MLS/HR; Start 12/03/18 at 00:00 Norepinephrine 250 ml @ 1.875 mls/ hr TITRATE IV ; Start 12/03/18 at 08:30 Vancomycin HCl 1.5 gm/Sodium Chloride 250 ml @ 83.333 mls/ hr Q12H IVPB Last administered on 12/05/18at 14:16; Admin Dose 83.333 MLS/HR; Start 12/04/18 at 13:00 Miscellaneous Information (*Rx Drug Level Order Reminder*) VANCO TR ON @ 000 ONCE ONCE XX ; Start 12/06/18 at 00:00; Stop 12/06/18 at 00:01 Trimethoprim/ Sulfamethoxazole (Bactrim (Ds)) 1 tab BID PO Last administered on 12/05/18 08:24; Admin Dose 1 TAB; Start 12/04/18 at 11:30 Metronidazole 100 ml @ 100 mls/hr Q8 IVPB Last administered on 12/05/18at 14:37; Admin Dose 100 MLS/HR; Start 12/04/18 at 14:00 Morphine Sulfate (morphine) 2 mg Q2H PRN IV MOD TO SEVERE PAIN Last administered on 12/05/18at 17:13; Admin Dose 2 MG; Start 12/04/18 at 11:30 Famotidine (Pepcid Iv) 20 mg DAILY@0600 IV ; Start 12/06/18 at 06:00 Emtricitabine/ Tenofovir (Truvada) 1 tab DAILY PO ; Start 12/06/18 at 09:00 Lamivudine/ Zidovudine (Combivir) 1 tab BID PO ; Start 12/06/18 at 09:00 Sodium Hypochlorite (Dakins Diluted (140)) 1 applic DAILY TP ; Start 12/06/18 at 09:00 Prednisolone Acetate (Pred-Forte 1%) 1 drop DAILY LEFT EYE ; Start 12/05/18 at 19:00 Miscellaneous Information 1 ml BID OP ; Start 12/05/18 at 21:00; Status UNV Assessment/Plan Hospital Course (Demo Recall) 42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 He underwent incision and drainage of the abdominal wall all the way up to the lower ribs on the left side and also of the left thigh and right inguinal area and debridement of the scrotum and perineal area. Patient is awake and is going later on for debridement of his wounds. The dressing and the packing over the wounds have been changed. He does have good urine output. His white count still elevated. Infectious disease are following his antibiotic coverage. MRSA did grow from the abdominal wound as well. Patient will need to continue on the antibiotic and wound care and debridement as needed. He had another debridement on 12/04/2018. GWEN BUCK MD Dec 05, 2018 18:47
[2018-12-05] MEDS ORDERED: GUAIFENESIN 20 MG/ML 5ML CUP PO PRN (19:00)
[2018-12-05] MEDS: PREDNISOLONE ACET 1% 5 ML OPH LEFT EYE SCH (20:07)
[2018-12-06] VITALS (20 sets, daily range): BP systolic 105–136; BP diastolic 66–94; PULSE 77–94; RESP 13–21
[2018-12-06] MEDS: VANCOMYCIN HCL 1.5 GM in SOD CHLORIDE 0.9% 250 ML IVPB SCH (02:13)
[2018-12-06] MEDS ORDERED: FAMOTIDINE 20 MG INJ IV SCH (06:00)
[2018-12-06] MEDS: morphine 2 MG INJ IV PRN ×7 (06:25→23:00)
[2018-12-06] MEDS: metroNIDAZOLE 500 MG/NS (PMX) 100 ML IVPB SCH ×3 (06:25→21:53)
--- NOTE | 2018-12-06 07:54 | PN ---
DATE: 12/06/2018 SUBJECTIVE: The patient is in serious but stable condition. Off IV fluids. Pending possible transf er to tertiary center. OBJECTIVE: VITAL SIGNS: Blood pressure is 112/77, pulse , respirations 17, temperature 99.7. HEENT: Head is normocephalic. NECK: Supple. HEART: Regular rate. LUNGS: Show diminished breath sounds at the base. ABDOMEN: Soft, nontender to palpation. EXTREMITIES: Negative for clubbing, cyanosis, no edema. CHEST: The patient has dressing clean, dry and intact. GENITOURINARY: The patient has dressing over his groin, clean, dry, intact. NEUROLOGIC: No focal deficits. DERMATOLOGIC: No rashes. MEDICATIONS: Reviewed. LABORATORY DATA: Has been reviewed. ASSESSMENT AND PLAN: 1. Nonoliguric acute kidney injury with previous baseline creatinine of 0.8 mg/dL. Etiology of acu te kidney injury is secondary to acute tubular necrosis. The patient's renal function has improved. Continue to monitor. 2. Hyponatremia secondary to acute injury, questionable partial component of SIADH. Continue to mon itor sodium levels closely. 3. Anemia. Monitor hemoglobin and hematocrit levels. 4. Mineral bone disorder. Monitor calcium and phosphorus levels. 5. Severe sepsis secondary to Nida's gangrene, necrotizing fasciitis. The patient is status pos t incision and drainage. Continue broad-spectrum antibiotics per ID. 6. Respiratory failure, status post extubation, currently stable. 7. Encephalopathy. Etiology is toxic metabolic. 8. History of human immunodeficiency virus. 9. History of hepatitis. Dictated By: MANASA ANAYA/NTS Conf#: [id number] DID#: [id number] CC: PARIS ARROYO MD;*EndCC*
[2018-12-06] MEDS: EMTRICITABINE/TENOFOVIR TAB PO SCH (08:18)
[2018-12-06] MEDS: TRIMETHOPRIM/SULFAMETHOX (DS) TAB PO SCH ×2 (08:18→20:09)
[2018-12-06] MEDS: LAMIVUDINE/ZIDOVUDINE TAB PO SCH ×2 (08:18→21:53)
[2018-12-06] MEDS: PREDNISOLONE ACET 1% 5 ML OPH LEFT EYE SCH (08:19)
[2018-12-06] MEDS: DAKINS 0.0125%(1/40) 473 ML SOLUTION TP SCH (09:00)
--- NOTE | 2018-12-06 09:40 | CONS ---
Assessment/Plan Assessment/Plan Assessment/Plan (Daily) Assessment and recommendations; 1. Patient admitted for Nida's gangrene status post surgical debridement. Patient is clinically improving. 2. history of being HIV positive. Maintained on adequate antiretroviral regimen. 3. History of hepatitis. 4. Mild anemia. Continue current supportive care. Antibiotics per ID recommendations. Patient can be transferred to medical floor. Consultation Date/Type/Reason Admit Date/Time Nov 30, 2018 at 20:47 Initial Consult Date 12/02/18 Type of Consult Pulmonary/critical care Patient condition is stable. Denies shortness of breath. Complains of mild abdominal pain. Denies any nausea vomiting. General exam; young male, awake alert, currently no distress. Requesting Provider: ROBIN TAVAREZ MD Date/Time of Note DATE: 12/06/18 TIME: 09:37 24 HR Interval Summary Free Text/Dictation Patient's condition is stable. Has remained hemodynamically stable. Complains of pain in lower abdominal area. Denies any shortness of breath. General exam; young male, awake alert, currently in no distress. Exam/Review of Systems Exam Vitals Vital Signs Date Temp Pulse Resp B/P (MAP) Pulse Ox O2 O2 Flow FiO2 Time Delivery Rate 12/06/18 99.0 82 15 117/94 97 Room Air 09:00 (102) 12/04/18 1.0 16:00 12/03/18 30 11:55 Intake and Output 12/05/18 12/05/18 12/06/18 1515:00 23:00 07:00 IntakeIntake Total 1253.3 ml 800 ml 700 ml OutputOutput Total 705 ml 650 ml 1200 ml BalanceBalance 548.3 ml 150 ml -500 ml Exam H EENT exam; supple neck, no JVD. No lymphadenopathy. Midline trachea. No thyromegaly. No neck masses. Patient has fair dentition. Pharynx is clear. Chest exam; clear to auscultation. S1-S2 audible, no murmurs. Regular rhythm. Abdomen exam; soft, dressing applied in lower abdominal area. Bowel sounds are audible. Abdomen is mildly tender. Extremity exam; no peripheral edema. [employer] exam; no focal deficit. Results Result Diagram: 12/06/18 0430 12/06/18 0430 Results 24hrs Laboratory Tests Test 12/06/18 00:59 12/06/18 04:30 Vancomycin Level Trough 8.0 L White Blood Count 13.6 #H Red Blood Count 2.98 L Hemoglobin 8.3 L Hematocrit 24.3 L Mean Corpuscular Volume 81.5 L Mean Corpuscular Hemoglobin 27.9 L Mean Corpuscular Hemoglobin Concent 34.2 Red Cell Distribution Width 15.4 H Platelet Count 260 Mean Platelet Volume 10.3 Immature Granulocytes % 4.500 H Neutrophils % 77.3 H Lymphocytes % 13.3 L Monocytes % 3.5 Eosinophils % 1.2 Basophils % 0.2 Nucleated Red Blood Cells % 0.0 Immature Granulocytes # 0.610 H Neutrophils # 10.5 H Lymphocytes # 1.8 Monocytes # 0.5 Eosinophils # 0.2 Basophils # 0.0 Nucleated Red Blood Cells # 0.0 Sodium Level 133 L Potassium Level 3.8 Chloride Level 104 Carbon Dioxide Level 25 Anion Gap 4 L Blood Urea Nitrogen 7 Creatinine 0.72 Est Glomerular Filtrat Rate mL/min > 60 Glucose Level 89 Calcium Level 7.2 L Phosphorus Level 3.2 Magnesium Level 1.7 Medications Medication Current Medications Ondansetron HCl (Zofran Inj) 4 mg Q6H PRN IV NAUSEA AND/OR VOMITING; Start 11/30/18 at 21:00 Acetaminophen (Tylenol Liquid) 650 mg Q6H PRN PO PAIN LEVEL 1-3 OR FEVER Last administered on 12/02/18at 21:27; Admin Dose 650 MG; Start 11/30/18 at 21:00 Vancomycin HCl (Vanco Iv Per Pharmacy) VANCOMYCIN PER PHARMACY PER PROTOCOL XX ; Start 11/30/18 at 21:00 Norepinephrine 250 ml @ 1.875 mls/ hr TITRATE IV ; Start 12/03/18 at 08:30 Trimethoprim/ Sulfamethoxazole (Bactrim (Ds)) 1 tab BID PO Last administered on 12/06/18at 08:18; Admin Dose 1 TAB; Start 12/04/18 at 11:30 Metronidazole 100 ml @ 100 mls/hr Q8 IVPB Last administered on 12/06/18at 06:25; Admin Dose 100 MLS/HR; Start 12/04/18 at 14:00 Morphine Sulfate (morphine) 2 mg Q2H PRN IV MOD TO SEVERE PAIN Last administered on 12/06/18at 08:19; Admin Dose 2 MG; Start 12/04/18 at 11:30 Famotidine (Pepcid Iv) 20 mg DAILY@0600 IV Last administered on 12/06/18at 06:24; Admin Dose 20 MG; Start 12/06/18 at 06:00 Emtricitabine/ Tenofovir (Truvada) 1 tab DAILY PO Last administered on 12/06/18at 08:18; Admin Dose 1 TAB; Start 12/06/18 at 09:00 Lamivudine/ Zidovudine (Combivir) 1 tab BID PO Last administered on 12/06/18at 08:18; Admin Dose 1 TAB; Start 12/06/18 at 09:00 Sodium Hypochlorite (Dakins Diluted ()) 1 applic DAILY TP ; Start 12/06/18 at 09:00 Prednisolone Acetate (Pred-Forte 1%) 1 drop DAILY LEFT EYE Last administered on 12/06/18at 08:19; Admin Dose 1 DROP; Start 12/05/18 at 19:00 Miscellaneous Information 1 ml BID OP ; Start 12/05/18 at 21:00; Status UNV Guaifenesin (Robitussin Liquid Cup) 100 mg Q4H PRN PO COUGH Last administered on 12/05/18at 20:07; Admin Dose 100 MG; Start 12/05/18 at 19:00 Vancomycin HCl 250 ml @ 125 mls/hr Q8H IVPB ; Start 12/06/18 at 10:00 SPRING RAMIREZ Dec 06, 2018 09:40
[2018-12-06] MEDS: VANCOMYCIN 1 GM 250 ML IVPB SCH ×2 (10:39→17:27)
--- NOTE | 2018-12-06 12:05 | CONS ---
Assessment/Plan Assessment/Plan Hospital Course (Demo Recall) No acute events overnight. Patient is alert feels okay no fevers overnight, T- max this morning 99.7. WBC 13.6 H&H 8.3 and 24.3 platelets 260 neutrophils 77.3 BUN 7 creatinine 0.72 Indwelling: PICC line Microbiology: Wound culture grew MRSA Antimicrobials: Vancomycin, Bactrim, Truvada, Combivir, Flagyl Physical examination: Well-developed well-nourished middle-aged man who is alert in no distress. Head atraumatic normocephalic sclera nonicteric neck is supple chest rise symmetrical breath sounds clear heart: S1-S2 abdomen soft bowel sounds present extremities without cyanosis. Skin: Patient has dressing over his left side of the abdomen and bilateral wound vacs to hips Assessment: 1. Resolving sepsis 2. MRSA Fornier's gangrene and necrotizing fasciitis, status post multiple recurrent debridement 3. HIV positive, CD4 count 224 4. Status post renal failure Plan: Patient is stable, continue present care and antibiotics, follow surgical recommendations Consultation Date/Type/Reason Admit Date/Time Nov 30, 2018 at 20:47 Initial Consult Date 12/02/18 Type of Consult id Requesting Provider: ROBIN TAVAREZ MD Date/Time of Note DATE: 12/06/18 TIME: 12:05 Exam/Review of Systems Exam Vitals Vital Signs Date Temp Pulse Resp B/P (MAP) Pulse Ox O2 O2 Flow FiO2 Time Delivery Rate 12/06/18 99.0 82 15 117/94 97 Room Air 09:00 (102) 12/04/18 1.0 16:00 12/03/18 30 11:55 Intake and Output 12/05/18 12/05/18 12/06/18 1515:00 23:00 07:00 IntakeIntake Total 1253.3 ml 800 ml 700 ml OutputOutput Total 705 ml 650 ml 1200 ml BalanceBalance 548.3 ml 150 ml -500 ml Results Result Diagram: 12/06/18 0430 12/06/18 0430 Results 24hrs Laboratory Tests Test 12/06/18 00:59 12/06/18 04:30 Vancomycin Level Trough 8.0 L White Blood Count 13.6 #H Red Blood Count 2.98 L Hemoglobin 8.3 L Hematocrit 24.3 L Mean Corpuscular Volume 81.5 L Mean Corpuscular Hemoglobin 27.9 L Mean Corpuscular Hemoglobin Concent 34.2 Red Cell Distribution Width 15.4 H Platelet Count 260 Mean Platelet Volume 10.3 Immature Granulocytes % 4.500 H Neutrophils % 77.3 H Lymphocytes % 13.3 L Monocytes % 3.5 Eosinophils % 1.2 Basophils % 0.2 Nucleated Red Blood Cells % 0.0 Immature Granulocytes # 0.610 H Neutrophils # 10.5 H Lymphocytes # 1.8 Monocytes # 0.5 Eosinophils # 0.2 Basophils # 0.0 Nucleated Red Blood Cells # 0.0 Sodium Level 133 L Potassium Level 3.8 Chloride Level 104 Carbon Dioxide Level 25 Anion Gap 4 L Blood Urea Nitrogen 7 Creatinine 0.72 Est Glomerular Filtrat Rate mL/min > 60 Glucose Level 89 Calcium Level 7.2 L Phosphorus Level 3.2 Magnesium Level 1.7 Medications Medication Current Medications Ondansetron HCl (Zofran Inj) 4 mg Q6H PRN IV NAUSEA AND/OR VOMITING; Start 11/30/18 at 21:00 Acetaminophen (Tylenol Liquid) 650 mg Q6H PRN PO PAIN LEVEL 1-3 OR FEVER Last administered on 12/02/18at 21:27; Admin Dose 650 MG; Start 11/30/18 at 21:00 Vancomycin HCl (Vanco Iv Per Pharmacy) VANCOMYCIN PER PHARMACY PER PROTOCOL XX ; Start 11/30/18 at 21:00 Norepinephrine 250 ml @ 1.875 mls/ hr TITRATE IV ; Start 12/03/18 at 08:30 Trimethoprim/ Sulfamethoxazole (Bactrim (Ds)) 1 tab BID PO Last administered on 12/06/18at 08:18; Admin Dose 1 TAB; Start 12/04/18 at 11:30 Metronidazole 100 ml @ 100 mls/hr Q8 IVPB Last administered on 12/06/18at 06:25; Admin Dose 100 MLS/HR; Start 12/04/18 at 14:00 Morphine Sulfate (morphine) 2 mg Q2H PRN IV MOD TO SEVERE PAIN Last administered on 12/06/18at 08:19; Admin Dose 2 MG; Start 12/04/18 at 11:30 Emtricitabine/ Tenofovir (Truvada) 1 tab DAILY PO Last administered on 12/06/18at 08:18; Admin Dose 1 TAB; Start 12/06/18 at 09:00 Lamivudine/ Zidovudine (Combivir) 1 tab BID PO Last administered on 12/06/18 08:18; Admin Dose 1 TAB; Start 12/06/18 at 09:00 Sodium Hypochlorite (Dakins Diluted (40)) 1 applic DAILY TP Last administered on 12/06/18 09:00; Admin Dose 1 APPLIC; Start 12/06/18 at 09:00 Prednisolone Acetate (Pred-Forte 1%) 1 drop DAILY LEFT EYE Last administered on 12/06/18 08:19; Admin Dose 1 DROP; Start 12/05/18 at 19:00 Miscellaneous Information 1 ml BID OP ; Start 12/05/18 at 21:00; Status UNV Guaifenesin (Robitussin Liquid Cup) 100 mg Q4H PRN PO COUGH Last administered on 12/05/18 20:07; Admin Dose 100 MG; Start 12/05/18 at 19:00 Vancomycin HCl 250 ml @ 125 mls/hr Q8H IVPB Last administered on 12/06/18 10:39; Admin Dose 125 MLS/HR; Start 12/06/18 at 10:00 Famotidine (Pepcid) 20 mg Q12 PO ; Start 12/06/18 at 21:00 CRYSTAL TALAVERA NP Dec 06, 2018 12:05
--- NOTE | 2018-12-06 13:03 | PN ---
Date/Time of Note Date/Time of Note DATE: 12/06/18 TIME: 13:00 Assessment/Plan Lines/Catheters IV Catheter Type (from Nrsg): PICC Line [place] in Place (from Nrsg): Yes Assessment/Plan Assessment/Plan Status post debridement for necrotizing fasciitis. Patient is recovering slowly. I feel the patient should be transferred to the higher level of care facility like [facility] for possible hyperbaric oxygenation treatment. There is a good chance the patient still have ongoing infection with ongoing necrotizing fasciitis and he may need further debridement. Hyperbaric oxygenation treatment may allow to avoid future surgeries. Subjective 24 Hr Interval Summary Patient is doing better. He is afebrile, heart rate is down, white blood cells down as well. Vacuum dressing was applied to left thigh incision. The other incisions look well. However there is still redness and induration in the left flank dependent part. Exam/Review of Systems Vital Signs Vitals Vital Signs Date Temp Pulse Resp B/P (MAP) Pulse Ox O2 O2 Flow FiO2 Time Delivery Rate 12/06/18 79 12:00 12/06/18 98.9 16 123/73 97 Room Air 12:00 (90) 12/04/18 1.0 16:00 12/03/18 30 11:55 Intake and Output 12/05/18 12/05/18 12/06/18 1515:00 23:00 07:00 IntakeIntake Total 1253.3 ml 800 ml 700 ml OutputOutput Total 705 ml 650 ml 1200 ml BalanceBalance 548.3 ml 150 ml -500 ml Results Result Diagram: 12/06/18 0430 12/06/18 0430 KILEY PIERRE MD Dec 06, 2018 13:03
--- NOTE | 2018-12-06 17:24 | PN ---
Date/Time of Note Date/Time of Note DATE: 12/06/18 TIME: 17:23 Assessment/Plan VTE Prophylaxis Risk score (from Ns)>0 risk: 8 SCD applied (from Ns): Yes Pharmacological prophylaxis: heparin Lines/Catheters IV Catheter Type (from Nrsg): PICC Line Central line still needed: Yes Urinary Cath still in place: Yes Reason Cath still needed: urinary retention Assessment/Plan Hospital Course 42 yo male with HIV/AIDS who presented with fourniers gangrene and necrotizing fasciitis of abdmoen - s/p I and D. Plan for transfer to tertiary center for hyperbaric oxygen - Wound care - Abx per ID HIV/AIDS: - ARVs and ppx per ID Result Diagram: 12/06/18 0430 12/06/18 0430 Results 24hrs Laboratory Tests Test 12/06/18 00:59 12/06/18 04:30 Vancomycin Level Trough 8.0 L White Blood Count 13.6 #H Red Blood Count 2.98 L Hemoglobin 8.3 L Hematocrit 24.3 L Mean Corpuscular Volume 81.5 L Mean Corpuscular Hemoglobin 27.9 L Mean Corpuscular Hemoglobin Concent 34.2 Red Cell Distribution Width 15.4 H Platelet Count 260 Mean Platelet Volume 10.3 Immature Granulocytes % 4.500 H Neutrophils % 77.3 H Lymphocytes % 13.3 L Monocytes % 3.5 Eosinophils % 1.2 Basophils % 0.2 Nucleated Red Blood Cells % 0.0 Immature Granulocytes # 0.610 H Neutrophils # 10.5 H Lymphocytes # 1.8 Monocytes # 0.5 Eosinophils # 0.2 Basophils # 0.0 Nucleated Red Blood Cells # 0.0 Sodium Level 133 L Potassium Level 3.8 Chloride Level 104 Carbon Dioxide Level 25 Anion Gap 4 L Blood Urea Nitrogen 7 Creatinine 0.72 Est Glomerular Filtrat Rate mL/min > 60 Glucose Level 89 Calcium Level 7.2 L Phosphorus Level 3.2 Magnesium Level 1.7 Subjective 24 Hr Interval Summary Free Text/Dictation Stable Feels he is improving Exam/Review of Systems Exam Vitals Vital Signs Date Temp Pulse Resp B/P (MAP) Pulse Ox O2 O2 Flow FiO2 Time Delivery Rate 12/06/18 82 17 113/81 99 16:00 (92) 12/06/18 98.7 Room Air 15:00 12/04/18 1.0 16:00 12/03/18 30 11:55 Intake and Output 12/05/18 12/05/18 12/06/18 1515:00 23:00 07:00 IntakeIntake Total 1253.3 ml 800 ml 700 ml OutputOutput Total 705 ml 650 ml 1300 ml BalanceBalance 548.3 ml 150 ml -600 ml Results Results 24hrs Laboratory Tests Test 12/06/18 00:59 12/06/18 04:30 Vancomycin Level Trough 8.0 L White Blood Count 13.6 #H Red Blood Count 2.98 L Hemoglobin 8.3 L Hematocrit 24.3 L Mean Corpuscular Volume 81.5 L Mean Corpuscular Hemoglobin 27.9 L Mean Corpuscular Hemoglobin Concent 34.2 Red Cell Distribution Width 15.4 H Platelet Count 260 Mean Platelet Volume 10.3 Immature Granulocytes % 4.500 H Neutrophils % 77.3 H Lymphocytes % 13.3 L Monocytes % 3.5 Eosinophils % 1.2 Basophils % 0.2 Nucleated Red Blood Cells % 0.0 Immature Granulocytes # 0.610 H Neutrophils # 10.5 H Lymphocytes # 1.8 Monocytes # 0.5 Eosinophils # 0.2 Basophils # 0.0 Nucleated Red Blood Cells # 0.0 Sodium Level 133 L Potassium Level 3.8 Chloride Level 104 Carbon Dioxide Level 25 Anion Gap 4 L Blood Urea Nitrogen 7 Creatinine 0.72 Est Glomerular Filtrat Rate mL/min > 60 Glucose Level 89 Calcium Level 7.2 L Phosphorus Level 3.2 Magnesium Level 1.7 Medications Medication Current Medications Ondansetron HCl (Zofran Inj) 4 mg Q6H PRN IV NAUSEA AND/OR VOMITING; Start 11/30/18 at 21:00 Acetaminophen (Tylenol Liquid) 650 mg Q6H PRN PO PAIN LEVEL 1-3 OR FEVER Last administered on 12/02/18at 21:27; Admin Dose 650 MG; Start 11/30/18 at 21:00 Vancomycin HCl (Vanco Iv Per Pharmacy) VANCOMYCIN PER PHARMACY PER PROTOCOL XX ; Start 11/30/18 at 21:00 Trimethoprim/ Sulfamethoxazole (Bactrim (Ds)) 1 tab BID PO Last administered on 12/06/18at 08:18; Admin Dose 1 TAB; Start 12/04/18 at 11:30 Metronidazole 100 ml @ 100 mls/hr Q8 IVPB Last administered on 12/06/18at 13:35; Admin Dose 100 MLS/HR; Start 12/04/18 at 14:00 Morphine Sulfate (morphine) 2 mg Q2H PRN IV MOD TO SEVERE PAIN Last administered on 12/06/18at 14:07; Admin Dose 2 MG; Start 12/04/18 at 11:30 Emtricitabine/ Tenofovir (Truvada) 1 tab DAILY PO Last administered on 12/06/18at 08:18; Admin Dose 1 TAB; Start 12/06/18 at 09:00 Lamivudine/ Zidovudine (Combivir) 1 tab BID PO Last administered on 12/06/18 08:18; Admin Dose 1 TAB; Start 12/06/18 at 09:00 Sodium Hypochlorite (Dakins Diluted ()) 1 applic DAILY TP Last administered on 12/06/18at 09:00; Admin Dose 1 APPLIC; Start 12/06/18 at 09:00 Prednisolone Acetate (Pred-Forte 1%) 1 drop DAILY LEFT EYE Last administered on 12/06/18 08:19; Admin Dose 1 DROP; Start 12/05/18 at 19:00 Miscellaneous Information 1 ml BID OP ; Start 12/05/18 at 21:00; Status UNV Guaifenesin (Robitussin Liquid Cup) 100 mg Q4H PRN PO COUGH Last administered on 12/05/18at 20:07; Admin Dose 100 MG; Start 12/05/18 at 19:00 Vancomycin HCl 250 ml @ 125 mls/hr Q8H IVPB Last administered on 12/06/18at 10:39; Admin Dose 125 MLS/HR; Start 12/06/18 at 10:00 Famotidine (Pepcid) 20 mg Q12 PO ; Start 12/06/18 at 21:00 Miscellaneous Information (*Rx Drug Level Order Reminder*) VANCO TROUGH @ 0,900 ON... 0900 ONCE XX ; Start 12/07/18 at 09:00; Stop 12/07/18 at 09:01 JIMI SCHAFER MD Dec 06, 2018 17:24
--- NOTE | 2018-12-06 17:46 | CONS ---
Consult Date/Type/Reason Admit Date/Time Nov 30, 2018 at 20:47 Initial Consult Date 12/02/18 Type of Consultation: Urology Reason for Consultation Nida gangrene Requesting Provider: ROBIN TAVAREZ MD Date/Time of Note DATE: 12/06/18 TIME: 17:41 Subjective Patient is feeling better,he has pain when the wounds are touched Objective Vitals Vital Signs Date Temp Pulse Resp B/P (MAP) Pulse Ox O2 O2 Flow FiO2 Time Delivery Rate 12/06/18 82 17 113/81 99 16:00 (92) 12/06/18 98.7 Room Air 15:00 12/04/18 1.0 16:00 12/03/18 30 11:55 Intake and Output 12/05/18 12/05/18 12/06/18 1515:00 23:00 07:00 IntakeIntake Total 1253.3 ml 800 ml 700 ml OutputOutput Total 705 ml 650 ml 1300 ml BalanceBalance 548.3 ml 150 ml -600 ml Exam I changed the packing of the wounds. The abdominal wound looks better . The left scrotum is better,but the right side has some necrotic tissue Results/Medications Result Diagram: 12/06/18 0430 12/06/18 0430 Results 24 hrs Laboratory Tests Test 12/06/18 00:59 12/06/18 04:30 Vancomycin Level Trough 8.0 L White Blood Count 13.6 #H Red Blood Count 2.98 L Hemoglobin 8.3 L Hematocrit 24.3 L Mean Corpuscular Volume 81.5 L Mean Corpuscular Hemoglobin 27.9 L Mean Corpuscular Hemoglobin Concent 34.2 Red Cell Distribution Width 15.4 H Platelet Count 260 Mean Platelet Volume 10.3 Immature Granulocytes % 4.500 H Neutrophils % 77.3 H Lymphocytes % 13.3 L Monocytes % 3.5 Eosinophils % 1.2 Basophils % 0.2 Nucleated Red Blood Cells % 0.0 Immature Granulocytes # 0.610 H Neutrophils # 10.5 H Lymphocytes # 1.8 Monocytes # 0.5 Eosinophils # 0.2 Basophils # 0.0 Nucleated Red Blood Cells # 0.0 Sodium Level 133 L Potassium Level 3.8 Chloride Level 104 Carbon Dioxide Level 25 Anion Gap 4 L Blood Urea Nitrogen 7 Creatinine 0.72 Est Glomerular Filtrat Rate mL/min > 60 Glucose Level 89 Calcium Level 7.2 L Phosphorus Level 3.2 Magnesium Level 1.7 Home Meds Reported Medications Atropine Sulfate/0.9 %Sod Chlr (Atropine 0.01%-Ns Eye Drops) 10 Ml Drops, 1 ML OP BID, #1 12/05/18 Prednisolone Acetate* (Pred Forte*) 5 Ml Susp, 1 DROP LEFT EYE Q1HOUR, EA 12/04/18 Medications Current Medications Ondansetron HCl (Zofran Inj) 4 mg Q6H PRN IV NAUSEA AND/OR VOMITING; Start 11/30/18 at 21:00 Acetaminophen (Tylenol Liquid) 650 mg Q6H PRN PO PAIN LEVEL 1-3 OR FEVER Last administered on 12/02/18 21:27; Admin Dose 650 MG; Start 11/30/18 at 21:00 Vancomycin HCl (Vanco Iv Per Pharmacy) VANCOMYCIN PER PHARMACY PER PROTOCOL XX ; Start 11/30/18 at 21:00 Trimethoprim/ Sulfamethoxazole (Bactrim (Ds)) 1 tab BID PO Last administered on 12/06/18 08:18; Admin Dose 1 TAB; Start 12/04/18 at 11:30 Metronidazole 100 ml @ 100 mls/hr Q8 IVPB Last administered on 12/06/18 13:35; Admin Dose 100 MLS/HR; Start 12/04/18 at 14:00 Morphine Sulfate (morphine) 2 mg Q2H PRN IV MOD TO SEVERE PAIN Last administered on 12/06/18 14:07; Admin Dose 2 MG; Start 12/04/18 at 11:30 Emtricitabine/ Tenofovir (Truvada) 1 tab DAILY PO Last administered on 12/06/18 08:18; Admin Dose 1 TAB; Start 12/06/18 at 09:00 Lamivudine/ Zidovudine (Combivir) 1 tab BID PO Last administered on 12/06/18 08:18; Admin Dose 1 TAB; Start 12/06/18 at 09:00 Sodium Hypochlorite (Dakins Diluted (40)) 1 applic DAILY TP Last administered on 12/06/18 09:00; Admin Dose 1 APPLIC; Start 12/06/18 at 09:00 Prednisolone Acetate (Pred-Forte 1%) 1 drop DAILY LEFT EYE Last administered on 12/06/18 08:19; Admin Dose 1 DROP; Start 12/05/18 at 19:00 Miscellaneous Information 1 ml BID OP ; Start 12/05/18 at 21:00; Status UNV Guaifenesin (Robitussin Liquid Cup) 100 mg Q4H PRN PO COUGH Last administered on 12/05/18at 20:07; Admin Dose 100 MG; Start 12/05/18 at 19:00 Vancomycin HCl 250 ml @ 125 mls/hr Q8H IVPB Last administered on 12/06/18at 17:27; Admin Dose 125 MLS/HR; Start 12/06/18 at 10:00 Famotidine (Pepcid) 20 mg Q12 PO ; Start 12/06/18 at 21:00 Miscellaneous Information (*Rx Drug Level Order Reminder*) VANCO TROUGH @ 0,900 ON... 0900 ONCE XX ; Start 12/07/18 at 09:00; Stop 12/07/18 at 09:01 Assessment/Plan Hospital Course (Demo Recall) 42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 He underwent incision and drainage of the abdominal wall all the way up to the lower ribs on the left side and also of the left thigh and right inguinal area and debridement of the scrotum and perineal area. The wounds are getting better. He may need debridement of the scrotum again. Packing is changed. Continue antibiotics GWEN BUCK MD Dec 06, 2018 17:46
[2018-12-06] MEDS: FAMOTIDINE 20 MG TAB PO SCH (20:09)
[2018-12-07] MEDS: morphine 2 MG INJ IV PRN ×10 (01:11→23:27)
[2018-12-07] MEDS: VANCOMYCIN 1 GM 250 ML IVPB SCH ×2 (01:12→12:05)
[2018-12-07 02:49] VITALS: BP 112/75; PULSE 83; RESP 18
[2018-12-07] MEDS: metroNIDAZOLE 500 MG/NS (PMX) 100 ML IVPB SCH ×3 (05:43→21:09)
[2018-12-07 07:30] VITALS: BP 119/78; PULSE 80; RESP 18
[2018-12-07] MEDS: FAMOTIDINE 20 MG TAB PO SCH ×2 (08:45→21:09)
[2018-12-07] MEDS: LAMIVUDINE/ZIDOVUDINE TAB PO SCH ×2 (08:46→21:09)
[2018-12-07] MEDS: TRIMETHOPRIM/SULFAMETHOX (DS) TAB PO SCH ×2 (08:46→21:09)
--- NOTE | 2018-12-07 08:46 | PN ---
DATE: 12/07/2018 SUBJECTIVE: The patient is stable, was transferred to intensive care unit to med/surg. No other umair nts noted. The patient's pain is controlled. OBJECTIVE: VITAL SIGNS: Blood pressure is 112/75, respiration 18, pulse 83, temperature 99.1. HEENT: Head is normocephalic. NECK: Supple. HEART: Regular rate. LUNGS: Shows diminished breath sounds at the base. ABDOMEN: Soft, nontender to palpation without rebound or guarding. EXTREMITIES: Negative for clubbing, cyanosis, no edema. DERMATOLOGIC: No rashes. MUSCULOSKELETAL: No joint effusion. NEUROLOGIC: No change in exam. MEDICATIONS: Reviewed. LABORATORY DATA: Has been reviewed. IMAGING STUDIES: Have been reviewed. ASSESSMENT AND PLAN: 1. Nonoliguric acute kidney injury. Etiology is secondary to hemodynamics. Renal function is impro oren. Continue current care plan and supportive care, renally dose all meds. 2. Hyponatremia, etiology would be secondary to syndrome of inappropriate antidiuretic hormone. Con tinue to monitor sodium levels. Minimize free water intake. 3. Anemia. Monitor hemoglobin and hematocrit levels. 4. Mineral bone disorder. Monitor calcium and phosphorus levels. 5. Urosepsis secondary Nida's gangrene, necrotizing fasciitis. The patient is status post I and D. Continue broad spectrum antibiotics. Follow up with infectious disease. Follow up with urology . 6. Status post respiratory failure. 7. Encephalopathy, etiology is toxic metabolic. 8. History of human immunodeficiency virus. 9. History of hepatitis. To observe. Dictated By: MANASA ALBRECHT DO NR/NTS Conf#: [id number] DID#: [id number] CC: PARIS ARROYO MD;*EndCC*
[2018-12-07] MEDS: DAKINS 0.0125%(1/40) 473 ML SOLUTION TP SCH (08:47)
--- NOTE | 2018-12-07 11:20 | CONS ---
Assessment/Plan Assessment/Plan Hospital Course (Demo Recall) No acute events overnight. Tx to ms floor, no fevers Indwelling: PICC line Microbiology: Wound culture grew MRSA Antimicrobials: Vancomycin, Bactrim, Truvada, Combivir, Flagyl Physical examination: Well-developed well-nourished middle-aged man who is alert in no distress. Head atraumatic normocephalic sclera nonicteric neck is supple chest rise symmetrical breath sounds clear heart: S1-S2 abdomen soft bowel sounds present extremities without cyanosis. Skin: Patient has dressing over his left side of the abdomen and bilateral wound vacs to hips Assessment: 1. Resolving sepsis 2. MRSA Fornier's gangrene and necrotizing fasciitis, status post multiple recurrent debridement 3. HIV positive, CD4 count 224 4. Status post renal failure Plan: Stable, continue present care and antibiotics, follow surgical recommendations, pain management Consultation Date/Type/Reason Admit Date/Time Nov 30, 2018 at 20:47 Initial Consult Date 12/02/18 Type of Consult id Requesting Provider: ROBIN TAVAREZ MD Date/Time of Note DATE: 12/07/18 TIME: 11:19 Exam/Review of Systems Exam Vitals Vital Signs Date Temp Pulse Resp B/P (MAP) Pulse Ox O2 O2 Flow FiO2 Time Delivery Rate 12/07/18 98.8 80 18 119/78 98 07:30 (92) 12/06/18 Room Air 15:00 12/04/18 1.0 16:00 12/03/18 30 11:55 Intake and Output 12/06/18 12/06/18 12/07/18 1515:00 23:00 07:00 IntakeIntake Total 850 ml 400 ml 800 ml OutputOutput Total 1750 ml 350 ml 2000 ml BalanceBalance -900 ml 50 ml -1200 ml Results Result Diagram: 12/06/18 0430 12/06/18 0430 Results 24hrs Laboratory Tests Test 12/07/18 09:50 Vancomycin Level Trough 8.5 L Medications Medication Current Medications Ondansetron HCl (Zofran Inj) 4 mg Q6H PRN IV NAUSEA AND/OR VOMITING; Start 11/30/18 at 21:00 Acetaminophen (Tylenol Liquid) 650 mg Q6H PRN PO PAIN LEVEL 1-3 OR FEVER Last administered on 7/5/19at 21:27; Admin Dose 650 MG; Start 11/30/18 at 21:00 Vancomycin HCl (Vanco Iv Per Pharmacy) VANCOMYCIN PER PHARMACY PER PROTOCOL XX ; Start 11/30/18 at 21:00 Trimethoprim/ Sulfamethoxazole (Bactrim (Ds)) 1 tab BID PO Last administered on 12/07/18 08:46; Admin Dose 1 TAB; Start 12/04/18 at 11:30 Metronidazole 100 ml @ 100 mls/hr Q8 IVPB Last administered on 12/07/18 05:43; Admin Dose 100 MLS/HR; Start 12/04/18 at 14:00 Morphine Sulfate (morphine) 2 mg Q2H PRN IV MOD TO SEVERE PAIN Last administered on 12/07/18 08:45; Admin Dose 2 MG; Start 12/04/18 at 11:30 Emtricitabine/ Tenofovir (Truvada) 1 tab DAILY PO Last administered on 12/06/18 08:18; Admin Dose 1 TAB; Start 12/06/18 at 09:00 Lamivudine/ Zidovudine (Combivir) 1 tab BID PO Last administered on 12/07/18 08:46; Admin Dose 1 TAB; Start 12/06/18 at 09:00 Sodium Hypochlorite (Dakins Diluted ()) 1 applic DAILY TP Last administered on 12/07/18 08:47; Admin Dose 1 APPLIC; Start 12/06/18 at 09:00 Prednisolone Acetate (Pred-Forte 1%) 1 drop DAILY LEFT EYE Last administered on 12/06/18 08:19; Admin Dose 1 DROP; Start 12/05/18 at 19:00 Miscellaneous Information 1 ml BID OP ; Start 12/05/18 at 21:00; Status UNV Guaifenesin (Robitussin Liquid Cup) 100 mg Q4H PRN PO COUGH Last administered on 12/05/18 20:07; Admin Dose 100 MG; Start 12/05/18 at 19:00 Vancomycin HCl 250 ml @ 125 mls/hr Q8H IVPB Last administered on 12/07/18 01:12; Admin Dose 125 MLS/HR; Start 12/06/18 at 10:00 Famotidine (Pepcid) 20 mg Q12 PO Last administered on 12/07/18 08:45; Admin Dose 20 MG; Start 12/06/18 at 21:00 Miscellaneous Information (*Order Clarification Bulletin) MEDICATION REQUIRES CLARIFICATI... Q8H XX ; Start 12/07/18 at 08:00 CRYSTAL TALAVERA NP Dec 07, 2018 11:19
[2018-12-07] MEDS: PREDNISOLONE ACET 1% 5 ML OPH LEFT EYE SCH (12:06)
[2018-12-07] MEDS: EMTRICITABINE/TENOFOVIR TAB PO SCH (12:49)
[2018-12-07] MEDS ORDERED: [UNRECOGNIZED DRUG - OTHER] XX SCH (13:00)
[2018-12-07 14:00] VITALS: BP 130/90; PULSE 83; RESP 16
--- NOTE | 2018-12-07 14:07 | PN ---
Date/Time of Note Date/Time of Note DATE: 12/07/18 TIME: 14:07 Assessment/Plan VTE Prophylaxis Risk score (from Nsg)>0 risk: 9 SCD applied (from Nsg): Yes Pharmacological prophylaxis: heparin Lines/Catheters IV Catheter Type (from Nrsg): PICC Line Central line still needed: Yes Urinary Cath still in place: Yes Reason Cath still needed: urinary retention Assessment/Plan Hospital Course Appears well no distress RRR CTAB Soft nt nd Wound vac applied to wound of LLQ 42 yo male with HIV/AIDS who presented with fourniers gangrene and necrotizing fasciitis of abdmoen - s/p I and D. Plan for transfer to tertiary center for hyperbaric oxygen - Wound care - Abx per ID HIV/AIDS: - ARVs and ppx per ID Result Diagram: 12/06/1842912/06/18429 Results 24hrs Laboratory Tests Test 12/07/18 09:50 Vancomycin Level Trough 8.5 L Subjective 24 Hr Interval Summary Free Text/Dictation Severe pain with wound care otherwise unchanged Exam/Review of Systems Exam Vitals Vital Signs Date Temp Pulse Resp B/P (MAP) Pulse Ox O2 O2 Flow FiO2 Time Delivery Rate 12/07/18 98.8 80 18 119/78 98 07:30 (92) 12/06/18 Room Air 15:00 12/04/18 1.0 16:00 12/03/18 30 11:55 Intake and Output 12/06/18 12/06/18 12/07/18 1515:00 23:00 07:00 IntakeIntake Total 850 ml 400 ml 800 ml OutputOutput Total 1750 ml 350 ml 2000 ml BalanceBalance -900 ml 50 ml -1200 ml Results Results 24hrs Laboratory Tests Test 12/07/18 09:50 Vancomycin Level Trough 8.5 L Medications Medication Current Medications Ondansetron HCl (Zofran Inj) 4 mg Q6H PRN IV NAUSEA AND/OR VOMITING; Start 11/30/18 at 21:00 Acetaminophen (Tylenol Liquid) 650 mg Q6H PRN PO PAIN LEVEL 1-3 OR FEVER Last administered on 12/02/18at 21:27; Admin Dose 650 MG; Start 11/30/18 at 21:00 Vancomycin HCl (Vanco Iv Per Pharmacy) VANCOMYCIN PER PHARMACY PER PROTOCOL XX ; Start 11/30/18 at 21:00 Trimethoprim/ Sulfamethoxazole (Bactrim (Ds)) 1 tab BID PO Last administered on 12/07/18 08:46; Admin Dose 1 TAB; Start 12/04/18 at 11:30 Metronidazole 100 ml @ 100 mls/hr Q8 IVPB Last administered on 12/07/18 05:43; Admin Dose 100 MLS/HR; Start 12/04/18 at 14:00 Morphine Sulfate (morphine) 2 mg Q2H PRN IV MOD TO SEVERE PAIN Last administered on 12/07/18 12:05; Admin Dose 2 MG; Start 12/04/18 at 11:30 Emtricitabine/ Tenofovir (Truvada) 1 tab DAILY PO Last administered on 12/07/18 t 12:49; Admin Dose 1 TAB; Start 12/06/18 at 09:00 Lamivudine/ Zidovudine (Combivir) 1 tab BID PO Last administered on 12/07/18 08:46; Admin Dose 1 TAB; Start 12/06/18 at 09:00 Sodium Hypochlorite (Dakins Diluted ()) 1 applic DAILY TP Last administered on 12/07/18 08:47; Admin Dose 1 APPLIC; Start 12/06/18 at 09:00 Prednisolone Acetate (Pred-Forte 1%) 1 drop DAILY LEFT EYE Last administered on 12/07/18 12:06; Admin Dose 1 DROP; Start 12/05/18 at 19:00 Miscellaneous Information 1 ml BID OP ; Start 12/05/18 at 21:00; Status UNV Guaifenesin (Robitussin Liquid Cup) 100 mg Q4H PRN PO COUGH Last administered on 12/05/18 20:07; Admin Dose 100 MG; Start 12/05/18 at 19:00 Famotidine (Pepcid) 20 mg Q12 PO Last administered on 12/07/18 08:45; Admin Dose 20 MG; Start 12/06/18 at 21:00 Miscellaneous Information (*Order Clarification Bulletin) MEDICATION REQUIRES CLARIFICATI... Q8H XX ; Start 12/07/18 at 08:00 Vancomycin HCl 1.25 gm/Sodium Chloride 250 ml @ 83.333 mls/ hr Q8H IVPB ; Star t 12/07/18 at 18:00 Miscellaneous Information (*Rx Drug Level Order Reminder*) SRIDHARO TR AT 1700 1700 ONCE XX ; Start 12/08/18 at 17:00; Stop 12/08/18 at 17:01 Morphine Sulfate (morphine) 2 mg DAILY PRN IV SEVERE PAIN LEVEL 7-10 Last administered on 12/07/18at 12:49; Admin Dose 2 MG; Start 12/07/18 at 13:00 Miscellaneous Information (*Order Clarification Bulletin) MEDICATION REQUIRES CLARIFICATI... Q8H XX ; Start 12/07/18 at 13:00 JIMI SCHAFER MD Dec 07, 2018 14:07
[2018-12-07] MEDS ORDERED: LACTULOSE 30ML CUP PO PRN (16:00)
[2018-12-07] MEDS: POLYETHYLENE GLYCOL 17 GM PACKET PO SCH (17:07)
[2018-12-07] MEDS: VANCOMYCIN HCL 1.25 GM in SOD CHLORIDE 0.9% 250 ML IVPB SCH (17:07)
--- NOTE | 2018-12-07 17:11 | PN ---
Date/Time of Note Date/Time of Note DATE: 12/07/18 TIME: 17:10 Assessment/Plan Lines/Catheters IV Catheter Type (from Nrsg): PICC Line Me[place] in Place (from Nrsg): Yes Assessment/Plan Assessment/Plan Patient with necrotizing fasciitis after multiple debridements. Slow recovery. Still trying to transfer to high-level facility care for possible hyperbaric oxygenation. Patient will need the plastic surgery consult for possible skin grafts. Subjective 24 Hr Interval Summary Patient is doing significantly better. Afebrile stable, heart rate below 100. Significantly less pain. On physical exam still induration and redness in the left flank however less than yesterday. White count is going down. Vacuum dressing applied on 2 wounds. Exam/Review of Systems Vital Signs Vitals Vital Signs Date Temp Pulse Resp B/P (MAP) Pulse Ox O2 O2 Flow FiO2 Time Delivery Rate 12/07/18 97.4 83 16 130/90 100 14:00 (103) 12/06/18 Room Air 15:00 12/04/18 1.0 16:00 12/03/18 30 11:55 Intake and Output 12/06/18 12/06/18 12/07/18 1515:00 23:00 07:00 IntakeIntake Total 850 ml 400 ml 800 ml OutputOutput Total 1750 ml 350 ml 2000 ml BalanceBalance -900 ml 50 ml -1200 ml Results Result Diagram: 12/06/18 0430 12/06/18 0430 KILEY PIERRE MD Dec 07, 2018 17:11
--- NOTE | 2018-12-07 19:13 | CONS ---
Consult Date/Type/Reason Admit Date/Time Nov 30, 2018 at 20:47 Initial Consult Date 12/02/18 Type of Consultation: Urology Reason for Consultation Nida gangrene Requesting Provider: ROBIN TAVAREZ MD Date/Time of Note DATE: 12/07/18 TIME: 19:09 Subjective Patient is feeling better. He has no pain unless the packing is changed. Objective Vitals Vital Signs Date Temp Pulse Resp B/P (MAP) Pulse Ox O2 O2 Flow FiO2 Time Delivery Rate 12/07/18 97.4 83 16 130/90 100 14:00 (103) 12/06/18 Room Air 15:00 12/04/18 1.0 16:00 12/03/18 30 11:55 Intake and Output 12/06/18 12/06/18 12/07/18 1515:00 23:00 07:00 IntakeIntake Total 850 ml 400 ml 800 ml OutputOutput Total 1750 ml 350 ml 2000 ml BalanceBalance -900 ml 50 ml -1200 ml Exam The packing over the flank, abdomen and scrotal area is intact. He does have necrotic tissue on the bottom of the scrotum and on the right side of the scrotum that needs more debridement. Results/Medications Result Diagram: 12/06/18 0430 12/06/18 0430 Results 24 hrs Laboratory Tests Test 12/07/18 09:50 Vancomycin Level Trough 8.5 L Home Meds Reported Medications Atropine Sulfate/0.9 %Sod Chlr (Atropine 0.01%-Ns Eye Drops) 10 Ml Drops, 1 ML OP BID, #1 12/05/18 Prednisolone Acetate* (Pred Forte*) 5 Ml Susp, 1 DROP LEFT EYE Q1HOUR, EA 12/04/18 Medications Current Medications Ondansetron HCl (Zofran Inj) 4 mg Q6H PRN IV NAUSEA AND/OR VOMITING; Start 11/30/18 at 21:00 Acetaminophen (Tylenol Liquid) 650 mg Q6H PRN PO PAIN LEVEL 1-3 OR FEVER Last administered on 12/02/18at 21:27; Admin Dose 650 MG; Start 11/30/18 at 21:00 Vancomycin HCl (Vanco Iv Per Pharmacy) VANCOMYCIN PER PHARMACY PER PROTOCOL XX ; Start 11/30/18 at 21:00 Trimethoprim/ Sulfamethoxazole (Bactrim (Ds)) 1 tab BID PO Last administered on 12/07/18 08:46; Admin Dose 1 TAB; Start 12/04/18 at 11:30 Metronidazole 100 ml @ 100 mls/hr Q8 IVPB Last administered on 12/07/18 15:05; Admin Dose 100 MLS/HR; Start 12/04/18 at 14:00 Morphine Sulfate (morphine) 2 mg Q2H PRN IV MOD TO SEVERE PAIN Last administered on 12/07/18 17:08; Admin Dose 2 MG; Start 12/04/18 at 11:30 Emtricitabine/ Tenofovir (Truvada) 1 tab DAILY PO Last administered on 12/07/18 12:49; Admin Dose 1 TAB; Start 12/06/18 at 09:00 Lamivudine/ Zidovudine (Combivir) 1 tab BID PO Last administered on 12/07/18 08:46; Admin Dose 1 TAB; Start 12/06/18 at 09:00 Sodium Hypochlorite (Dakins Diluted ()) 1 applic DAILY TP Last administered on 12/07/18 08:47; Admin Dose 1 APPLIC; Start 12/06/18 at 09:00 Prednisolone Acetate (Pred-Forte 1%) 1 drop DAILY LEFT EYE Last administered on 12/07/18 12:06; Admin Dose 1 DROP; Start 12/05/18 at 19:00 Atropine Sulfate (Atropine 1% Oph) 1 drop BID LEFT EYE ; Start 12/07/18 at 21:00 Guaifenesin (Robitussin Liquid Cup) 100 mg Q4H PRN PO COUGH Last administered on 12/05/18 20:07; Admin Dose 100 MG; Start 12/05/18 at 19:00 Famotidine (Pepcid) 20 mg Q12 PO Last administered on 12/07/18 08:45; Admin Dose 20 MG; Start 12/06/18 at 21:00 Vancomycin HCl 1.25 gm/Sodium Chloride 250 ml @ 83.333 mls/ hr Q8H IVPB Last administered on 12/07/18 17:07; Admin Dose 83.333 MLS/HR; Start 12/07/18 at 18:00 Miscellaneous Information (*Rx Drug Level Order Reminder*) VANCO TR AT 1700 1700 ONCE XX ; Start 12/08/18 at 17:00; Stop 12/08/18 at 17:01 Morphine Sulfate (morphine) 2 mg DAILY PRN IV SEVERE PAIN LEVEL 7-10 Last adm inistered on 12/07/18at 12:49; Admin Dose 2 MG; Start 12/07/18 at 13:00 Polyethylene Glycol (Miralax) 17 gm DAILY PO Last administered on 12/07/18at 17:07; Admin Dose 17 GM; Start 12/07/18 at 16:00 Docusate Sodium (Colace) 200 mg BID PO ; Start 12/07/18 at 21:00 Lactulose (Enulose) 20 gm DAILY PRN PO CONSTIPATION Last administered on 12/07/18at 17:07; Admin Dose 20 GM; Start 12/07/18 at 16:00 Assessment/Plan Hospital Course (Demo Recall) 42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 He underwent incision and drainage of the abdominal wall all the way up to the lower ribs on the left side and also of the left thigh and right inguinal area and debridement of the scrotum and perineal area. The wounds are getting better. He needs debridement of the scrotum again. I will try to do it tomorrow. GWEN BUCK MD Dec 07, 2018 19:13
[2018-12-07] MEDS: DOCUSATE SODIUM 100 MG CAP PO SCH (20:56)
[2018-12-07] MEDS: ATROPINE 1% 5 ML OPH LEFT EYE SCH (21:09)
[2018-12-07 21:52] VITALS: BP 112/77; PULSE 88; RESP 20
[2018-12-08] VITALS (14 sets, daily range): BP systolic 104–135; BP diastolic 57–100; PULSE 87–106; RESP 11–20
[2018-12-08] MEDS ORDERED: PENDING SANTYL ORDER FOR WOUND CARE XX PRN (02:30)
[2018-12-08] MEDS: VANCOMYCIN HCL 1.25 GM in SOD CHLORIDE 0.9% 250 ML IVPB SCH ×4 (02:31→23:25)
[2018-12-08] MEDS: morphine 2 MG INJ IV PRN ×5 (05:03→23:16)
[2018-12-08] MEDS: metroNIDAZOLE 500 MG/NS (PMX) 100 ML IVPB SCH ×3 (05:03→22:09)
[2018-12-08] MEDS ORDERED: GLYCOPYRROLATE 0.4 MG INJ ONE (07:00)
[2018-12-08] MEDS: DAKINS 0.0125%(1/40) 473 ML SOLUTION TP SCH (09:00)
[2018-12-08] MEDS: POLYETHYLENE GLYCOL 17 GM PACKET PO SCH (09:00)
--- NOTE | 2018-12-08 09:42 | PN ---
DATE: 12/08/2018 SUBJECTIVE: The patient is stable, no events overnight. No fevers, chills, nausea or vomiting. OBJECTIVE: VITAL SIGNS: Blood pressure is 128/82, respiration is 28, pulse 87, temperature 98.5. HEENT: Head is normocephalic. NECK: Supple. HEART: Regular rate. LUNGS: Show diminished breath sounds at the base. The patient has dressing clean, dry and intact. ABDOMEN: Soft, nontender to palpation without rebound or guarding. EXTREMITIES: Negative for clubbing, cyanosis, no edema. DERMATOLOGIC: No rashes. MUSCULOSKELETAL: No joint effusion. GENITOURINARY: Dressing clean, dry, and intact. NEUROLOGIC: No change in exam. MEDICATIONS: The patient's medications have been reviewed. LABORATORY DATA: Laboratory data has been reviewed. ASSESSMENT AND PLAN: 1. Nonoliguric acute kidney injury. Etiology is secondary to hemodynamics, renal function is improv ed. Continue to monitor. Continue supportive care. 2. Hypernatremia likely secondary to syndrome of inappropriate antidiuretic hormone due to underlyin g pain. Continue to monitor sodium levels. 3. Anemia. Continue to monitor hemoglobin and hematocrit levels. 4. Mineral bone disorder. Monitor calcium and phosphorus levels. 5. Sepsis secondary to Nida's gangrene, necrotizing fasciitis. The patient is status post multi ple debridements, incision and drainage, improving. Continue antibiotic therapy. Follow up with Uro logy. Repeat incision and drainage of scrotum is pending today. 6. Status post respiratory failure. 7. Encephalopathy, improving. 8. History of human immunodeficiency virus. 9. History of hepatitis. Continue to monitor. Dictated By: MANASA ALBRECHT DO NR/NTS Conf#: [id number] DID#: [id number] CC: PARIS ARROYO MD; JIMI SCHAFER MD; GWEN BUCK MD;*EndCC*
[2018-12-08] MEDS: ATROPINE 1% 5 ML OPH LEFT EYE SCH ×2 (09:46→21:09)
[2018-12-08] MEDS: PREDNISOLONE ACET 1% 5 ML OPH LEFT EYE SCH (09:46)
[2018-12-08] MEDS: DOCUSATE SODIUM 100 MG CAP PO SCH ×2 (09:48→21:10)
[2018-12-08] MEDS: LAMIVUDINE/ZIDOVUDINE TAB PO SCH ×2 (09:48→21:10)
[2018-12-08] MEDS: FAMOTIDINE 20 MG TAB PO SCH ×2 (09:48→21:10)
[2018-12-08] MEDS: EMTRICITABINE/TENOFOVIR TAB PO SCH (09:48)
[2018-12-08] MEDS: TRIMETHOPRIM/SULFAMETHOX (DS) TAB PO SCH ×2 (09:48→21:10)
--- NOTE | 2018-12-08 12:24 | CONS ---
Assessment/Plan Assessment/Plan Hospital Course (Demo Recall) No acute events overnight. Looks comfortable, no fevers Indwelling: PICC line Microbiology: Wound culture grew MRSA Antimicrobials: Vancomycin, Bactrim, Truvada, Combivir, Flagyl Physical examination: Well-developed well-nourished middle-aged man who is alert in no distress. Head atraumatic normocephalic sclera nonicteric neck is supple chest rise symmetrical breath sounds clear heart: S1-S2 abdomen soft bowel sounds present extremities without cyanosis. Skin: Patient has dressing over his left side of the abdomen and bilateral wound vacs to hips Assessment: 1. Resolving sepsis 2. MRSA Fornier's gangrene and necrotizing fasciitis, status post multiple recurrent debridement 3. HIV positive, CD4 count 224 4. Status post renal failure Plan: Remains stable, wbc trending down, Vanco level still low, continue present care and antibiotics, per urology needs another debridement of the scrotum, pending tx to tertiary care center Consultation Date/Type/Reason Admit Date/Time Nov 30, 2018 at 20:47 Initial Consult Date 12/02/18 Type of Consult id Requesting Provider: ROBIN TAVAREZ MD Date/Time of Note DATE: 12/08/18 TIME: 12:22 Exam/Review of Systems Exam Vitals Vital Signs Date Temp Pulse Resp B/P (MAP) Pulse Ox O2 O2 Flow FiO2 Time Delivery Rate 12/08/18 98.3 89 19 117/75 98 Room Air 07:56 (89) 12/04/18 1.0 16:00 Intake and Output 12/07/18 12/07/18 12/08/18 1515:00 23:00 07:00 IntakeIntake Total 250 ml 450 ml 350 ml OutputOutput Total 800 ml BalanceBalance -550 ml 450 ml 350 ml Results Result Diagram: 12/08/18 0630 12/08/18 0630 Results 24hrs Laboratory Tests Test 12/08/18 06:30 White Blood Count 9.6 # Red Blood Count 3.56 L Hemoglobin 9.4 L Hematocrit 29.2 #L Mean Corpuscular Volume 82.0 Mean Corpuscular Hemoglobin 26.4 L Mean Corpuscular Hemoglobin Concent 32.2 Red Cell Distribution Width 15.9 H Platelet Count 348 # Mean Platelet Volume 10.2 Immature Granulocytes % 2.100 H Neutrophils % 76.8 Lymphocytes % 16.0 Monocytes % 2.6 Eosinophils % 2.3 Basophils % 0.2 Nucleated Red Blood Cells % 0.0 Immature Granulocytes # 0.200 H Neutrophils # 7.4 Lymphocytes # 1.5 Monocytes # 0.3 Eosinophils # 0.2 Basophils # 0.0 Nucleated Red Blood Cells # 0.0 Sodium Level 135 Potassium Level 4.1 Chloride Level 105 Carbon Dioxide Level 22 Anion Gap 8 Blood Urea Nitrogen 9 Creatinine 0.69 Est Glomerular Filtrat Rate mL/min > 60 Glucose Level 92 Calcium Level 7.5 L Phosphorus Level 3.9 Magnesium Level 1.7 Medications Medication Current Medications Ondansetron HCl (Zofran Inj) 4 mg Q6H PRN IV NAUSEA AND/OR VOMITING; Start 11/30/18 at 21:00 Acetaminophen (Tylenol Liquid) 650 mg Q6H PRN PO PAIN LEVEL 1-3 OR FEVER Last administered on 12/02/18 21:27; Admin Dose 650 MG; Start 11/30/18 at 21:00 Vancomycin HCl (Vanco Iv Per Pharmacy) VANCOMYCIN PER PHARMACY PER PROTOCOL XX ; Start 11/30/18 at 21:00 Trimethoprim/ Sulfamethoxazole (Bactrim (Ds)) 1 tab BID PO Last administered on 12/08/18 09:48; Admin Dose 1 TAB; Start 12/04/18 at 11:30 Metronidazole 100 ml @ 100 mls/hr Q8 IVPB Last administered on 12/08/18 05:03; Admin Dose 100 MLS/HR; Start 12/04/18 at 14:00 Morphine Sulfate (morphine) 2 mg Q2H PRN IV MOD TO SEVERE PAIN Last administered on 12/08/18 09:57; Admin Dose 2 MG; Start 12/04/18 at 11:30 Emtricitabine/ Tenofovir (Truvada) 1 tab DAILY PO Last administered on 12/08/18 09:48; Admin Dose 1 TAB; Start 12/06/18 at 09:00 Lamivudine/ Zidovudine (Combivir) 1 tab BID PO Last administered on 12/08/18 09:48; Admin Dose 1 TAB; Start 12/06/18 at 09:00 Sodium Hypochlorite (Dakins Diluted ()) 1 applic DAILY TP Last administered on 12/07/18 08:47; Admin Dose 1 APPLIC; Start 12/06/18 at 09:00 Prednisolone Acetate (Pred-Forte 1%) 1 drop DAILY LEFT EYE Last administered on 12/08/18 09:46; Admin Dose 1 DROP; Start 12/05/18 at 19:00 Atropine Sulfate (Atropine 1% Oph) 1 drop BID LEFT EYE Last administered on 12/08/18 09:46; Admin Dose 1 DROP; Start 12/07/18 at 21:00 Guaifenesin (Robitussin Liquid Cup) 100 mg Q4H PRN PO COUGH Last administered on 12/05/18 20:07; Admin Dose 100 MG; Start 12/05/18 at 19:00 Famotidine (Pepcid) 20 mg Q12 PO Last administered on 12/08/18 09:48; Admin Dose 20 MG; Start 12/06/18 at 21:00 Vancomycin HCl 1.25 gm/Sodium Chloride 250 ml @ 83.333 mls/ hr Q8H IVPB Last administered on 12/08/18 09:54; Admin Dose 83.333 MLS/HR; Start 12/07/18 at 18:00 Miscellaneous Information (*Rx Drug Level Order Reminder*) VANCO TR AT 1700 1700 ONCE XX ; Start 12/08/18 at 17:00; Stop 12/08/18 at 17:01 Morphine Sulfate (morphine) 2 mg DAILY PRN IV SEVERE PAIN LEVEL 7-10 Last administered on 12/07/18 12:49; Admin Dose 2 MG; Start 12/07/18 at 13:00 Polyethylene Glycol (Miralax) 17 gm DAILY PO Last administered on 12/07/18 17:07; Admin Dose 17 GM; Start 12/07/18 at 16:00 Docusate Sodium (Colace) 200 mg BID PO Last administered on 12/08/18 09:48; Admin Dose 200 MG; Start 12/07/18 at 21:00 Lactulose (Enulose) 20 gm DAILY PRN PO CONSTIPATION Last administered on 12/07/18 17:07; Admin Dose 20 GM; Start 12/07/18 at 16:00 Miscellaneous Information [facility] 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 PRN XX WOUND CARE; Start 12/08/18 at 02:30 CRYSTAL TALAVERA MACHINE CHOCOLATE MOLDER Dec 08, 2018 12:24
[2018-12-08] MEDS ORDERED: ALTEPLASE (CATHFLO) 2 MG INJ CATHETER ONE (16:00)
[2018-12-08] MEDS ORDERED: HYDROGEN PEROXIDE 118 ML ONE (16:54)
--- NOTE | 2018-12-08 17:13 | PN ---
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 - s/p I and D - Plan for transfer to tertiary center for hyperbaric oxygen - Wound care - Abx per ID HIV/AIDS: - ARVs and ppx per ID Result Diagram: 12/08/18 0630 12/08/18 0630 Results 24hrs Laboratory Tests Test 12/08/18 06:30 White Blood Count 9.6 # Red Blood Count 3.56 L Hemoglobin 9.4 L Hematocrit 29.2 #L Mean Corpuscular Volume 82.0 Mean Corpuscular Hemoglobin 26.4 L Mean Corpuscular Hemoglobin Concent 32.2 Red Cell Distribution Width 15.9 H Platelet Count 348 # Mean Platelet Volume 10.2 Immature Granulocytes % 2.100 H Neutrophils % 76.8 Lymphocytes % 16.0 Monocytes % 2.6 Eosinophils % 2.3 Basophils % 0.2 Nucleated Red Blood Cells % 0.0 Immature Granulocytes # 0.200 H Neutrophils # 7.4 Lymphocytes # 1.5 Monocytes # 0.3 Eosinophils # 0.2 Basophils # 0.0 Nucleated Red Blood Cells # 0.0 Sodium Level 135 Potassium Level 4.1 Chloride Level 105 Carbon Dioxide Level 22 Anion Gap 8 Blood Urea Nitrogen 9 Creatinine 0.69 Est Glomerular Filtrat Rate mL/min > 60 Glucose Level 92 Calcium Level 7.5 L Phosphorus Level 3.9 Magnesium Level 1.7 Subjective 24 Hr Interval Summary Free Text/Dictation Plan for repeat trip to the OR today per Dr. Damon. We had a long discussion about his HIV and AIDS diagnoses. Became very tearful at this Exam/Review of Systems Exam Vitals Vital Signs Date Temp Pulse Resp B/P (MAP) Pulse Ox O2 O2 Flow FiO2 Time Delivery Rate 12/08/18 98.1 90 19 104/57 99 Room Air 14:00 (73) 12/04/18 1.0 16:00 Intake and Output 12/07/18 12/07/18 12/08/18 1515:00 23:00 07:00 IntakeIntake Total 250 ml 450 ml 350 ml OutputOutput Total 800 ml BalanceBalance -550 ml 450 ml 350 ml Results Results 24hrs Laboratory Tests Test 12/08/18 06:30 White Blood Count 9.6 # Red Blood Count 3.56 L Hemoglobin 9.4 L Hematocrit 29.2 #L Mean Corpuscular Volume 82.0 Mean Corpuscular Hemoglobin 26.4 L Mean Corpuscular Hemoglobin Concent 32.2 Red Cell Distribution Width 15.9 H Platelet Count 348 # Mean Platelet Volume 10.2 Immature Granulocytes % 2.100 H Neutrophils % 76.8 Lymphocytes % 16.0 Monocytes % 2.6 Eosinophils % 2.3 Basophils % 0.2 Nucleated Red Blood Cells % 0.0 Immature Granulocytes # 0.200 H Neutrophils # 7.4 Lymphocytes # 1.5 Monocytes # 0.3 Eosinophils # 0.2 Basophils # 0.0 Nucleated Red Blood Cells # 0.0 Sodium Level 135 Potassium Level 4.1 Chloride Level 105 Carbon Dioxide Level 22 Anion Gap 8 Blood Urea Nitrogen 9 Creatinine 0.69 Est Glomerular Filtrat Rate mL/min > 60 Glucose Level 92 Calcium Level 7.5 L Phosphorus Level 3.9 Magnesium Level 1.7 Medications Medication Current Medications Ondansetron HCl (Zofran Inj) 4 mg Q6H PRN IV NAUSEA AND/OR VOMITING; Start 11/30/18 at 21:00 Acetaminophen (Tylenol Liquid) 650 mg Q6H PRN PO PAIN LEVEL 1-3 OR FEVER Last administered on 12/02/18at 21:27; Admin Dose 650 MG; Start 11/30/18 at 21:00 Vancomycin HCl (Vanco Iv Per Pharmacy) VANCOMYCIN PER PHARMACY PER PROTOCOL XX ; Start 11/30/18 at 21:00 Trimethoprim/ Sulfamethoxazole (Bactrim (Ds)) 1 tab BID PO Last administered on 12/08/18at 09:48; Admin Dose 1 TAB; Start 12/04/18 at 11:30 Metronidazole 100 ml @ 100 mls/hr Q8 IVPB Last administered on 12/08/18at 14:31; Admin Dose 100 MLS/HR; Start 12/04/18 at 14:00 Morphine Sulfate (morphine) 2 mg Q2H PRN IV MOD TO SEVERE PAIN Last administered on 12/08/18 12:39; Admin Dose 2 MG; Start 12/04/18 at 11:30 Emtricitabine/ Tenofovir (Truvada) 1 tab DAILY PO Last administered on 12/08/18 09:48; Admin Dose 1 TAB; Start 12/06/18 at 09:00 Lamivudine/ Zidovudine (Combivir) 1 tab BID PO Last administered on 12/08/18 09:48; Admin Dose 1 TAB; Start 12/06/18 at 09:00 Sodium Hypochlorite (Dakins Diluted ()) 1 applic DAILY TP Last administered on 12/07/18 08:47; Admin Dose 1 APPLIC; Start 12/06/18 at 09:00 Prednisolone Acetate (Pred-Forte 1%) 1 drop DAILY LEFT EYE Last administered on 12/08/18 09:46; Admin Dose 1 DROP; Start 12/05/18 at 19:00 Atropine Sulfate (Atropine 1% Oph) 1 drop BID LEFT EYE Last administered on 12/08/18 09:46; Admin Dose 1 DROP; Start 12/07/18 at 21:00 Guaifenesin (Robitussin Liquid Cup) 100 mg Q4H PRN PO COUGH Last administered on 12/05/18 20:07; Admin Dose 100 MG; Start 12/05/18 at 19:00 Famotidine (Pepcid) 20 mg Q12 PO Last administered on 12/08/18 09:48; Admin Dose 20 MG; Start 12/06/18 at 21:00 Morphine Sulfate (morphine) 2 mg DAILY PRN IV SEVERE PAIN LEVEL 7-10 Last administered on 12/07/18 12:49; Admin Dose 2 MG; Start 12/07/18 at 13:00 Polyethylene Glycol (Miralax) 17 gm DAILY PO Last administered on 12/07/18 17:07; Admin Dose 17 GM; Start 12/07/18 at 16:00 Docusate Sodium (Colace) 200 mg BID PO Last administered on 12/08/18 09:48; Admin Dose 200 MG; Start 12/07/18 at 21:00 Lactulose (Enulose) 20 gm DAILY PRN PO CONSTIPATION Last administered on 12/07/18 17:07; Admin Dose 20 GM; Start 12/07/18 at 16:00 Miscellaneous Information (Pending Santyl Order For Wound Care) 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 PRN XX WOUND CARE; Start 12/08/18 at 02:30 Vancomycin HCl 1.25 gm/Sodium Chloride 250 ml @ 83.333 mls/ hr Q8H IVPB ; Start 12/08/18 at 22:00 Miscellaneous Information (*Rx Drug Level Order Reminder*) 1 1300 ONCE XX ; Start 12/09/18 at 13:00; Stop 12/09/18 at 13:01 JIMI SCHAFER MD Dec 08, 2018 17:13
--- NOTE | 2018-12-08 17:14 | PREAC ---
Date/Time of Note Date/Time of Note DATE: 12/08/18 TIME: 17:14 Anesthesia Eval and Record Evaluation Time Pre-Procedure Interview DATE: 12/08/18 TIME: 17:14 Age 42 Sex male NPO: 8 hrs Preoperative diagnosis scrotal abscess Planned procedure I&D scrotal abscess Past Medical History Past Medical History: Includes Cardio: Dyslipidemia Pulm: Smoking Hx Surgery & Anesthesia Issues No known issue Meds Anticoagulation: No Beta Lynne within 24 hr: No Reason Beta Lynne not given: Pt. not on B-Lynne Reported Medications Atropine Sulfate/0.9 %Sod Chlr (Atropine 0.01%-Ns Eye Drops) 10 Ml Drops, 1 ML OP BID, #1 12/05/18 Prednisolone Acetate* (Pred Forte*) 5 Ml Susp, 1 DROP LEFT EYE Q1HOUR, EA 12/04/18 Current Medications Ondansetron HCl (Zofran Inj) 4 mg Q6H PRN IV NAUSEA AND/OR VOMITING; Start 11/30/18 at 21:00 Acetaminophen (Tylenol Liquid) 650 mg Q6H PRN PO PAIN LEVEL 1-3 OR FEVER Last administered on 12/02/18at 21:27; Admin Dose 650 MG; Start 11/30/18 at 21:00 Vancomycin HCl (Vanco Iv Per Pharmacy) VANCOMYCIN PER PHARMACY PER PROTOCOL XX ; Start 11/30/18 at 21:00 Trimethoprim/ Sulfamethoxazole (Bactrim (Ds)) 1 tab BID PO Last administered on 12/08/18at 09:48; Admin Dose 1 TAB; Start 12/04/18 at 11:30 Metronidazole 100 ml @ 100 mls/hr Q8 IVPB Last administered on 12/08/18at 14:31; Admin Dose 100 MLS/HR; Start 12/04/18 at 14:00 Morphine Sulfate (morphine) 2 mg Q2H PRN IV MOD TO SEVERE PAIN Last administered on 12/08/18 12:39; Admin Dose 2 MG; Start 12/04/18 at 11:30 Emtricitabine/ Tenofovir (Truvada) 1 tab DAILY PO Last administered on 12/08/18 09:48; Admin Dose 1 TAB; Start 12/06/18 at 09:00 Lamivudine/ Zidovudine (Combivir) 1 tab BID PO Last administered on 12/08/18 09:48; Admin Dose 1 TAB; Start 12/06/18 at 09:00 Sodium Hypochlorite (Dakins Diluted (1/40)) 1 applic DAILY TP Last administered on 12/07/18 08:47; Admin Dose 1 APPLIC; Start 12/06/18 at 09:00 Prednisolone Acetate (Pred-Forte 1%) 1 drop DAILY LEFT EYE Last administered on 12/08/18 09:46; Admin Dose 1 DROP; Start 12/05/18 at 19:00 Atropine Sulfate (Atropine 1% Oph) 1 drop BID LEFT EYE Last administered on 12/08/18 09:46; Admin Dose 1 DROP; Start 12/07/18 at 21:00 Guaifenesin (Robitussin Liquid Cup) 100 mg Q4H PRN PO COUGH Last administered on 12/05/18 20:07; Admin Dose 100 MG; Start 12/05/18 at 19:00 Famotidine (Pepcid) 20 mg Q12 PO Last administered on 12/08/18 09:48; Admin Dose 20 MG; Start 12/06/18 at 21:00 Morphine Sulfate (morphine) 2 mg DAILY PRN IV SEVERE PAIN LEVEL 7-10 Last administered on 12/07/18 12:49; Admin Dose 2 MG; Start 12/07/18 at 13:00 Polyethylene Glycol (Miralax) 17 gm DAILY PO Last administered on 12/07/18 17:07; Admin Dose 17 GM; Start 12/07/18 at 16:00 Docusate Sodium (Colace) 200 mg BID PO Last administered on 12/08/18 09:48; Admin Dose 200 MG; Start 12/07/18 at 21:00 Lactulose (Enulose) 20 gm DAILY PRN PO CONSTIPATION Last administered on 12/07/18 17:07; Admin Dose 20 GM; Start 12/07/18 at 16:00 Miscellaneous Information (Pending Santyl Order For Wound Care) 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 PRN XX WOUND CARE; Start 12/08/18 at 02:30 Vancomycin HCl 1.25 gm/Sodium Chloride 250 ml @ 83.333 mls/ hr Q8H IVPB ; Start 12/08/18 at 22:00 Miscellaneous Information (*Rx Drug Level Order Reminder*) 1 1300 ONCE XX ; Start 12/09/18 at 13:00; Stop 12/09/18 at 13:01 Meds reviewed: Yes Allergies Coded Allergies: No Known Allergy (Unverified , 01/31/18) Allergies Reviewed: Yes Labs/Studies Labs Reviewed: Reviewed by anesthesiologist Result Diagram: 12/08/18 0630 12/08/18 0630 Laboratory Tests 12/08/18 06:30 test: N/A Pre-procedure Exam Last vitals Vital Signs Date Temp Pulse Resp B/P (MAP) Pulse Ox O2 O2 Flow FiO2 Time Delivery Rate 12/08/18 98.1 90 19 104/57 99 Room Air 14:00 (73) 12/04/18 1.0 16:00 Airway: Adequate mouth opening, Adequate thyromental dist Mallampati: Mallampati II Teeth: Normal Lung: Normal Heart: Normal ASA Physical Status ASA physical status: 3 Emergency: None Planned Anesthetic General/MAC: ETT Pre-operative Attestations Prior to commencing anesthesia and surgery, the patient was re-evaluated, there was verification of: *The patient's identity *The results of appropriate recent lab work and preoperative vital signs *The above evaluation not changing prior to induction *Anesthetic plan, risk benefits, alternative and complications discussed with patient/family; questions answered; patient/family understands, accepts and wishes to proceed. EMMANUEL DESAI Dec 08, 2018 17:14
[2018-12-08] MEDS ORDERED: METOCLOPRAMIDE 10 MG INJ IV PRN (17:30)
[2018-12-08] MEDS ORDERED: ONDANSETRON 4 MG INJ IV PRN (17:30)
[2018-12-08] MEDS ORDERED: DIPHENHYDRAMINE 50 MG INJ IV PRN (17:30)
[2018-12-08] MEDS ORDERED: MEPERIDINE 25 MG INJ IV PRN (17:30)
[2018-12-08] MEDS ORDERED: HYDROmorphONE 1 MG/5 ML IV SYRINGE IV PRN ×3 (17:30)
[2018-12-08] MEDS ORDERED: ALBUTEROL 0.083% (NEB) 2.5 MG/3 ML AMP HHN PRN (17:30)
[2018-12-08] MEDS ORDERED: FENTAnyl 50 MCG/ML VIAL IV PRN ×3 (17:30)
--- NOTE | 2018-12-08 17:45 | HPN ---
Date/Time of Note Date/Time of Note DATE: 12/08/18 TIME: 17:44 Interval H&P Admission Note Pt. seen H&P reviewed: Systems changes noted below (Patient has a right buttock abscess that needs to be incised and drained as well.) Patient was noted to have a right buttock abscess today. Since I am doing debridement of the scrotal, penile, inguinal and perineal areas I will do incision and drainage of the right buttock abscess at the same time. GWEN BUCK MD Dec 08, 2018 17:45
[2018-12-08] MEDS ORDERED: POLYMYXIN/BACITRACIN 1L IRRIG ONE (18:56)
[2018-12-08] MEDS ORDERED: PROPOFOL 20 ML ONE (19:14)
[2018-12-08] MEDS ORDERED: SUCCINYLCHOLINE CHLORIDE 100 MG/5 ML SYG IV ONE (19:14)
[2018-12-08] MEDS ORDERED: ROCURONIUM 50 MG INJ ONE (19:14)
[2018-12-08] MEDS ORDERED: SUGAMMADEX SODIUM 200 MG/2 ML VIAL IV ONE (19:14)
[2018-12-08] MEDS ORDERED: LIDOCAINE 100 MG SYRINGE ONE (19:14)
--- NOTE | 2018-12-08 19:46 | OPR ---
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 Abscess of right buttock Postoperative Diagnosis Same Operation/Procedure Performed Debridement of all necrotized tissue in the scrotum perineal area base of the penis left inguinal area and of all the abdominal wound including the muscles. 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 Abscess tissue from right buttock Grafts/Implants none Complications none Pt Condition Post Procedure: stable Disposition: PACU Indications Nida gangrene of the scrotum base of the penis left inguinal area and necrotizing fasciitis of the abdominal wall left side extending all the way to the chest toward the left axilla. Abscess of right buttock Procedure Description The patient was brought to the operating room and given general anesthesia. Timeout was done and the patient was identified by his name, his birthdate and the procedure. The patient was then positioned in the lithotomy position. The old packing of the wounds was removed and then the abdomen and all the areas around the wounds were prepped and draped in the usual sterile manner. I first debrided the necrotic tissue in the scrotum and around the perineal area also on the right side of the scrotum where the tissue has closed without on the outside where there was a still necrotic tissue deep. I moved with the debridement toward the inguinal area then the right side of the abdominal wound going down deep to the muscle all the way up to the axilla area then I did debride the left side of the abdominal wound at the base of the abdominal wound that is the muscles. There was a hematoma in the muscular area between the external oblique and the internal oblique muscle. I then irrigated the wounds and did electrocoagulated any bleeder. Then we put the patient in Trendelenburg and did excise and drain the right buttock abscess. I did debrided and send the tissue separately. I then packed it with iodoform packing. Then I packed all the wound abdomen and scrotum with Kerlix soaked on antibiotic and applied also 4 x 4's and ABDs. The dressing was held in place by taping it. At the end of the procedure I changed my gloves and inserted a new Meade catheter for him. The patient tolerated the procedure well and was transferred to the recovery room in a stable and satisfactory condition. GWEN BUCK MD Dec 08, 2018 19:46
[2018-12-09 02:00] VITALS: BP 102/61; PULSE 110; RESP 18
[2018-12-09] MEDS: metroNIDAZOLE 500 MG/NS (PMX) 100 ML IVPB SCH ×3 (05:31→23:03)
[2018-12-09] MEDS: morphine 2 MG INJ IV PRN ×4 (05:31→23:16)
[2018-12-09] MEDS: VANCOMYCIN HCL 1.25 GM in SOD CHLORIDE 0.9% 250 ML IVPB SCH ×3 (06:42→23:03)
[2018-12-09 08:00] VITALS: BP 122/78; PULSE 60; RESP 17
--- NOTE | 2018-12-09 08:30 | PN ---
DATE: 12/09/2018 SUBJECTIVE: The patient is stable. No events overnight. The patient has ongoing pain controlled wi th pain medications. The patient had I and D yesterday of scrotum, penile, perineal and inguinal wou nds. The patient had no episodes of hemoptysis or hematemesis. OBJECTIVE: VITAL SIGNS: Blood pressure 102/61, respiration 18, pulse 110, temperature 99.4. HEENT: Head is normocephalic. NECK: Supple. HEART: Regular rate. LUNGS: Show diminished breath sounds at the base. ABDOMEN: Soft, nontender to palpation without rebound or guarding. EXTREMITIES: Negative for clubbing, cyanosis, no edema. MUSCULOSKELETAL: The patient's chest exam has dressing over his left chest, clean, dry, intact. GENITOURINARY: The patient's exam has a dressing clean, dry, intact. NEUROLOGIC: No focal defic its. MEDICATIONS: Have been reviewed. LABORATORY DATA: Have been reviewed. MICROBIOLOGY: Has been reviewed. ASSESSMENT AND PLAN: 1. Nonoliguric acute kidney injury. Etiology is secondary to hemodynamics. Renal function is impro oren. Continue to monitor. 2. Hyponatremia. 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 Continue to monitor sodium levels. 3. Anemia. Continue to monitor and hematocrit levels. 4. Mineral bone disorder. Monitor calcium and phosphorus levels. 5. 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 6. Fasciitis. The patient is status post multiple debridements, status post incision and drainage o f perineal and penile region. Continue current antibiotic regimen, dressing changes, follow up with urology. 7. Status post respiratory failure. 8. Encephalopathy, resolving. 9. History of human immunodeficiency virus. Continue to monitor. 10. History of hepatitis. Dictated By: MANASA ALBRECHT DO NR/NTS Conf#: [id number] DID#: [id number] CC: PARIS ARROYO MD;*EndCC*
--- NOTE | 2018-12-09 08:48 | PAC ---
Date/Time of Note Date/Time of Note DATE: 12/09/18 TIME: 08:47 Post-Anesthesia Notes Post-Anesthesia Note Last documented vital signs Vital Signs Date Temp Pulse Resp B/P (MAP) Pulse Ox O2 O2 Flow FiO2 Time Delivery Rate 12/09/18 100.1 60 17 122/78 97 Room Air 08:00 (93) Activity: WNL Respiratory function: WNL Cardiovascular function: WNL Mental status: Baseline Pain reasonably controlled: Yes Hydration appropriate: Yes Nausea/Vomiting absent: Yes EMMANUEL DESAI Dec 09, 2018 08:48
[2018-12-09] MEDS: DOCUSATE SODIUM 100 MG CAP PO SCH ×2 (08:49→21:00)
[2018-12-09] MEDS: ACETAMINOPHEN 650MG/20.3ML CUP PO PRN ×2 (08:49→18:38)
[2018-12-09] MEDS: EMTRICITABINE/TENOFOVIR TAB PO SCH (08:49)
[2018-12-09] MEDS: LAMIVUDINE/ZIDOVUDINE TAB PO SCH ×2 (08:49→23:02)
[2018-12-09] MEDS: MULTIVITAMINS/MINERALS TAB PO SCH (08:49)
[2018-12-09] MEDS: ZINC SULFATE 220 MG CAP PO SCH (08:49)
[2018-12-09] MEDS: PREDNISOLONE ACET 1% 5 ML OPH LEFT EYE SCH (08:49)
[2018-12-09] MEDS: POLYETHYLENE GLYCOL 17 GM PACKET PO SCH (08:49)
[2018-12-09] MEDS: ATROPINE 1% 5 ML OPH LEFT EYE SCH ×2 (08:49→23:03)
[2018-12-09] MEDS: DAKINS 0.0125%(1/40) 473 ML SOLUTION TP SCH (08:50)
[2018-12-09] MEDS: FAMOTIDINE 20 MG TAB PO SCH ×2 (08:50→23:02)
[2018-12-09] MEDS: TRIMETHOPRIM/SULFAMETHOX (DS) TAB PO SCH ×2 (08:50→23:02)
[2018-12-09] MEDS: ASCORBIC ACID 500 MG TAB PO SCH ×2 (08:52→23:02)
[2018-12-09] MEDS: ONDANSETRON 4 MG INJ IV PRN (11:06)
--- NOTE | 2018-12-09 11:49 | CONS ---
Assessment/Plan Assessment/Plan Hospital Course (Demo Recall) No acute events overnight Indwelling: PICC line Microbiology: Wound culture grew MRSA Antimicrobials: Vancomycin, Bactrim, Truvada, Combivir, Flagyl Physical examination: Well-developed well-nourished middle-aged man who is alert in no distress. Head atraumatic normocephalic sclera nonicteric neck is supple chest rise symmetrical breath sounds clear heart: S1-S2 abdomen soft b owel sounds present extremities without cyanosis. Skin: Patient has dressing over his left side of the abdomen and bilateral wound vacs to hips Assessment: 1. Resolving sepsis 2. MRSA Fornier's gangrene and necrotizing fasciitis, status post multiple recurrent debridement ==> latest one on 12/08/18 3. HIV positive, CD4 count 224 4. Status post renal failure Plan: Remains stable, continue local wound care and antibiotics, pending tx to tertiary care center Consultation Date/Type/Reason Admit Date/Time Nov 30, 2018 at 20:47 Initial Consult Date 12/02/18 Type of Consult id Requesting Provider: ROBIN TAVAREZ MD Date/Time of Note DATE: 12/09/18 TIME: 11:48 Exam/Review of Systems Exam Vitals Vital Signs Date Temp Pulse Resp B/P (MAP) Pulse Ox O2 O2 Flow FiO2 Time Delivery Rate 12/09/18 98.9 10:30 12/09/18 60 17 122/78 97 Room Air 08:00 (93) Intake and Output 12/08/18 12/08/18 12/09/18 1515:00 23:00 07:00 IntakeIntake Total 950 ml 450 ml OutputOutput Total 850 ml BalanceBalance 100 ml 450 ml Results Result Diagram: 12/08/18 0630 12/08/18 0630 Medications Medication Current Medications Ondansetron HCl (Zofran Inj) 4 mg Q6H PRN IV NAUSEA AND/OR VOMITING Last administered on 12/09/18at 11:06; Admin Dose 4 MG; Start 11/30/18 at 21:00 Acetaminophen (Tylenol Liquid) 650 mg Q6H PRN PO PAIN LEVEL 1-3 OR FEVER Last administered on 12/09/18at 08:49; Admin Dose 650 MG; Start 11/30/18 at 21:00 Vancomycin HCl (Vanco Iv Per Pharmacy) VANCOMYCIN PER PHARMACY PER PROTOCOL XX ; Start 11/30/18 at 21:00 Trimethoprim/ Sulfamethoxazole (Bactrim (Ds)) 1 tab BID PO Last administered on 12/09/18 08:50; Admin Dose 1 TAB; Start 12/04/18 at 11:30 Metronidazole 100 ml @ 100 mls/hr Q8 IVPB Last administered on 12/09/18 05:31; Admin Dose 100 MLS/HR; Start 12/04/18 at 14:00 Morphine Sulfate (morphine) 2 mg Q2H PRN IV MOD TO SEVERE PAIN Last administered on 12/09/18 08:51; Admin Dose 2 MG; Start 12/04/18 at 11:30 Emtricitabine/ Tenofovir (Truvada) 1 tab DAILY PO Last administered on 12/09/18 t 08:49; Admin Dose 1 TAB; Start 12/06/18 at 09:00 Lamivudine/ Zidovudine (Combivir) 1 tab BID PO Last administered on 12/09/18 08:49; Admin Dose 1 TAB; Start 12/06/18 at 09:00 Sodium Hypochlorite (Dakins Diluted (1/40)) 1 applic DAILY TP Last administered on 12/07/18 08:47; Admin Dose 1 APPLIC; Start 12/06/18 at 09:00 Prednisolone Acetate (Pred-Forte 1%) 1 drop DAILY LEFT EYE Last administered on 12/09/18 08:49; Admin Dose 1 DROP; Start 12/05/18 at 19:00 Atropine Sulfate (Atropine 1% Oph) 1 drop BID LEFT EYE Last administered on 12/09/18 08:49; Admin Dose 1 DROP; Start 12/07/18 at 21:00 Guaifenesin (Robitussin Liquid Cup) 100 mg Q4H PRN PO COUGH Last administered on 12/05/18 20:07; Admin Dose 100 MG; Start 12/05/18 at 19:00 Famotidine (Pepcid) 20 mg Q12 PO Last administered on 12/09/18 08:50; Admin Dose 20 MG; Start 12/06/18 at 21:00 Morphine Sulfate (morphine) 2 mg DAILY PRN IV SEVERE PAIN LEVEL 7-10 Last administered on 12/07/18 12:49; Admin Dose 2 MG; Start 7/10/19 at 13:00 Polyethylene Glycol (Miralax) 17 gm DAILY PO Last administered on 12/09/18 08:49; Admin Dose 17 GM; Start 12/07/18 at 16:00 Docusate Sodium (Colace) 200 mg BID PO Last administered on 12/09/18 08:49; Admin Dose 200 MG; Start 12/07/18 at 21:00 Lactulose (Enulose) 20 gm DAILY PRN PO CONSTIPATION Last administered on 12/07/18 17:07; Admin Dose 20 GM; Start 12/07/18 at 16:00 Miscellaneous Information (Pending Santyl Order For Wound Care) 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 PRN XX WOUND CARE; Start 12/08/18 at 02:30 Vancomycin HCl 1.25 gm/Sodium Chloride 250 ml @ 83.333 mls/ hr Q8H IVPB Last administered on 12/09/18 06:42; Admin Dose 83.333 MLS/HR; Start 12/08/18 at 22:00 Miscellaneous Information (*Rx Drug Level Order Reminder*) 1 1300 ONCE XX ; Start 12/09/18 at 13:00; Stop 12/09/18 at 13:01 Multivitamins/ Minerals (Theragran-M) 1 tab DAILY PO Last administered on 12/09/18 08:49; Admin Dose 1 TAB; Start 12/09/18 at 09:00 Ascorbic Acid (Vitamin C) 500 mg BID PO Last administered on 12/09/18 08:52; Admin Dose 500 MG; Start 12/09/18 at 09:00 Zinc Sulfate (Zinc Sulfate) 220 mg DAILY PO Last administered on 12/09/18 08:49; Admin Dose 220 MG; Start 12/09/18 at 09:00 CRYSTAL TALAVERA NP Dec 09, 2018 11:49
[2018-12-09 14:00] VITALS: BP 109/66; PULSE 97; RESP 17
--- NOTE | 2018-12-09 17:38 | PN ---
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 - s/p I and D - Plan for transfer to tertiary center for hyperbaric oxygen - Wound care - Abx per ID HIV/AIDS: - ARVs and ppx per ID Result Diagram: 12/08/1862912/08/18629 Results 24hrs Laboratory Tests Test 12/09/18 14:13 Vancomycin Level Trough 14.4 Subjective 24 Hr Interval Summary Free Text/Dictation Went for repeat abscess drainage yesterday Exam/Review of Systems Exam Vitals Vital Signs Date Temp Pulse Resp B/P (MAP) Pulse Ox O2 O2 Flow FiO2 Time Delivery Rate 12/09/18 98.9 97 17 109/66 97 Room Air 14:00 (80) Intake and Output 12/08/18 12/08/18 12/09/18 1515:00 23:00 07:00 IntakeIntake Total 950 ml 450 ml OutputOutput Total 850 ml BalanceBalance 100 ml 450 ml Results Results 24hrs Laboratory Tests Test 12/09/18 14:13 Vancomycin Level Trough 14.4 Medications Medication Current Medications Ondansetron HCl (Zofran Inj) 4 mg Q6H PRN IV NAUSEA AND/OR VOMITING Last administered on 12/09/18at 11:06; Admin Dose 4 MG; Start 11/30/18 at 21:00 Acetaminophen (Tylenol Liquid) 650 mg Q6H PRN PO PAIN LEVEL 1-3 OR FEVER Last administered on 12/09/18at 08:49; Admin Dose 650 MG; Start 11/30/18 at 21:00 Vancomycin HCl (Vanco Iv Per Pharmacy) VANCOMYCIN PER PHARMACY PER PROTOCOL XX ; Start 11/30/18 at 21:00 Trimethoprim/ Sulfamethoxazole (Bactrim (Ds)) 1 tab BID PO Last administered on 12/09/18at 08:50; Admin Dose 1 TAB; Start 12/04/18 at 11:30 Metronidazole 100 ml @ 100 mls/hr Q8 IVPB Last administered on 12/09/18 14:30; Admin Dose 100 MLS/HR; Start 12/04/18 at 14:00 Morphine Sulfate (morphine) 2 mg Q2H PRN IV MOD TO SEVERE PAIN Last administered on 12/09/18 14:27; Admin Dose 2 MG; Start 12/04/18 at 11:30 Emtricitabine/ Tenofovir (Truvada) 1 tab DAILY PO Last administered on 08:49; Admin Dose 1 TAB; Start 12/06/18 at 09:00 Lamivudine/ Zidovudine (Combivir) 1 tab BID PO Last administered on 12/09/18 08:49; Admin Dose 1 TAB; Start 12/06/18 at 09:00 Sodium Hypochlorite (Dakins Diluted (40)) 1 applic DAILY TP Last administered on 12/07/18 08:47; Admin Dose 1 APPLIC; Start 12/06/18 at 09:00 Prednisolone Acetate (Pred-Forte 1%) 1 drop DAILY LEFT EYE Last administered on 12/09/18 08:49; Admin Dose 1 DROP; Start 12/05/18 at 19:00 Atropine Sulfate (Atropine 1% Oph) 1 drop BID LEFT EYE Last administered on 12/09/18 08:49; Admin Dose 1 DROP; Start 12/07/18 at 21:00 Guaifenesin (Robitussin Liquid Cup) 100 mg Q4H PRN PO COUGH Last administered on 12/05/18 20:07; Admin Dose 100 MG; Start 12/05/18 at 19:00 Famotidine (Pepcid) 20 mg Q12 PO Last administered on 12/09/18 08:50; Admin Dose 20 MG; Start 12/06/18 at 21:00 Morphine Sulfate (morphine) 2 mg DAILY PRN IV SEVERE PAIN LEVEL 7-10 Last administered on 12/07/18 12:49; Admin Dose 2 MG; Start 12/07/18 at 13:00 Polyethylene Glycol (Miralax) 17 gm DAILY PO Last administered on 12/09/18 08:49; Admin Dose 17 GM; Start 12/07/18 at 16:00 Docusate Sodium (Colace) 200 mg BID PO Last administered on 12/09/18 08:49; Admin Dose 200 MG; Start 12/07/18 at 21:00 Lactulose (Enulose) 20 gm DAILY PRN PO CONSTIPATION Last administered on 12/07/18 17:07; Admin Dose 20 GM; Start 12/07/18 at 16:00 Miscellaneous Information (Pending [facility] Order For Wound Care) 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 PRN XX WOUND CARE; Start 12/08/18 at 02:30 Vancomycin HCl 1.25 gm/Sodium Chloride 250 ml @ 83.333 mls/ hr Q8H IVPB Last administered on 12/09/18 17:00; Admin Dose 83.333 MLS/HR; Start 12/08/18 at 22:00 Multivitamins/ Minerals (Theragran-M) 1 tab DAILY PO Last administered on 12/09/18 08:49; Admin Dose 1 TAB; Start 12/09/18 at 09:00 Ascorbic Acid (Vitamin C) 500 mg BID PO Last administered on 12/09/18 08:52; Admin Dose 500 MG; Start 12/09/18 at 09:00 Zinc Sulfate (Zinc Sulfate) 220 mg DAILY PO Last administered on 12/09/18 08:49; Admin Dose 220 MG; Start 12/09/18 at 09:00 JIMI SCHAFER MD Dec 09, 2018 17:38
--- NOTE | 2018-12-09 19:49 | CONS ---
Consult Date/Type/Reason Admit Date/Time Nov 30, 2018 at 20:47 Initial Consult Date 12/02/18 Type of Consultation: Urology Reason for Consultation Nida gangrene and necrotizing fasciitis Requesting Provider: ROBIN TAVAREZ MD Date/Time of Note DATE: 12/09/18 TIME: 19:46 Subjective Patient is comfortable. He was emotionally distressed as today is his birthday. Objective Vitals Vital Signs Date Temp Pulse Resp B/P (MAP) Pulse Ox O2 O2 Flow FiO2 Time Delivery Rate 12/09/18 100.2 18:38 12/09/18 97 17 109/66 97 Room Air 14:00 (80) Intake and Output 12/08/18 12/08/18 12/09/18 1515:00 23:00 07:00 IntakeIntake Total 950 ml 450 ml OutputOutput Total 850 ml BalanceBalance 100 ml 450 ml Exam The dressings and the packing are intact. The nurse was going to change the packing earlier but he did not let her. The night nurse will try to change the dressing. Results/Medications Result Diagram: 12/08/18 0630 12/08/18 0630 Results 24 hrs Laboratory Tests Test 12/09/18 14:13 Vancomycin Level Trough 14.4 Home Meds Reported Medications Atropine Sulfate/0.9 %Sod Chlr (Atropine 0.01%-Ns Eye Drops) 10 Ml Drops, 1 ML OP BID, #1 12/05/18 Prednisolone Acetate* (Pred Forte*) 5 Ml Susp, 1 DROP LEFT EYE Q1HOUR, EA 12/04/18 Medications Current Medications Ondansetron HCl (Zofran Inj) 4 mg Q6H PRN IV NAUSEA AND/OR VOMITING Last administered on 12/09/18at 11:06; Admin Dose 4 MG; Start 11/30/18 at 21:00 Acetaminophen (Tylenol Liquid) 650 mg Q6H PRN PO PAIN LEVEL 1-3 OR FEVER Last administered on 12/09/18at 18:38; Admin Dose 650 MG; Start 11/30/18 at 21:00 Vancomycin HCl (Vanco Iv Per Pharmacy) VANCOMYCIN PER PHARMACY PER PROTOCOL XX ; Start 11/30/18 at 21:00 Trimethoprim/ Sulfamethoxazole (Bactrim (Ds)) 1 tab BID PO Last administered on 12/09/18at 08:50; Admin Dose 1 TAB; Start 12/04/18 at 11:30 Metronidazole 100 ml @ 100 mls/hr Q8 IVPB Last administered on 12/09/18 14:30; Admin Dose 100 MLS/HR; Start 12/04/18 at 14:00 Morphine Sulfate (morphine) 2 mg Q2H PRN IV MOD TO SEVERE PAIN Last administered on 12/09/18 14:27; Admin Dose 2 MG; Start 12/04/18 at 11:30 Emtricitabine/ Tenofovir (Truvada) 1 tab DAILY PO Last administered on 12/09/18 08:49; Admin Dose 1 TAB; Start 12/06/18 at 09:00 Lamivudine/ Zidovudine (Combivir) 1 tab BID PO Last administered on 12/09/18 08:49; Admin Dose 1 TAB; Start 12/06/18 at 09:00 Sodium Hypochlorite (Dakins Diluted (40)) 1 applic DAILY TP Last administered on 12/07/18 08:47; Admin Dose 1 APPLIC; Start 12/06/18 at 09:00 Prednisolone Acetate (Pred-Forte 1%) 1 drop DAILY LEFT EYE Last administered on 12/09/18 08:49; Admin Dose 1 DROP; Start 12/05/18 at 19:00 Atropine Sulfate (Atropine 1% Oph) 1 drop BID LEFT EYE Last administered on 12/09/18 08:49; Admin Dose 1 DROP; Start 12/07/18 at 21:00 Guaifenesin (Robitussin Liquid Cup) 100 mg Q4H PRN PO COUGH Last administered on 12/05/18 20:07; Admin Dose 100 MG; Start 12/05/18 at 19:00 Famotidine (Pepcid) 20 mg Q12 PO Last administered on 12/09/18 08:50; Admin Dose 20 MG; Start 12/06/18 at 21:00 Morphine Sulfate (morphine) 2 mg DAILY PRN IV SEVERE PAIN LEVEL 7-10 Last administered on 12/07/18 12:49; Admin Dose 2 MG; Start 12/07/18 at 13:00 Polyethylene Glycol (Miralax) 17 gm DAILY PO Last administered on 12/09/18 08:49; Admin Dose 17 GM; Start 12/07/18 at 16:00 Docusate Sodium (Colace) 200 mg BID PO Last administered on 12/09/18 08:49; Admin Dose 200 MG; Start 12/07/18 at 21:00 Lactulose (Enulose) 20 gm DAILY PRN PO CONSTIPATION Last administered on 12/07/18 17:07; Admin Dose 20 GM; Start 12/07/18 at 16:00 Miscellaneous Information (Pending [facility] Order For Wound Care) 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 PRN XX WOUND CARE; Start 12/08/18 at 02:30 Vancomycin HCl 1.25 gm/Sodium Chloride 250 ml @ 83.333 mls/ hr Q8H IVPB Last administered on 12/09/18 17:00; Admin Dose 83.333 MLS/HR; Start 12/08/18 at 22:00 Multivitamins/ Minerals (Theragran-M) 1 tab DAILY PO Last administered on 12/09/18 08:49; Admin Dose 1 TAB; Start 12/09/18 at 09:00 Ascorbic Acid (Vitamin C) 500 mg BID PO Last administered on 12/09/18 08:52; Admin Dose 500 MG; Start 12/09/18 at 09:00 Zinc Sulfate (Zinc Sulfate) 220 mg DAILY PO Last administered on 12/09/18 08:49; Admin Dose 220 MG; Start 12/09/18 at 09:00 Assessment/Plan Hospital Course (Demo Recall) 42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 He underwent incision and drainage of the abdominal wall all the way up to the lower ribs on the left side and also of the left thigh and right inguinal area and debridement of the scrotum and perineal area. The wounds are getting better. He underwent debridement yesterday and also incision and drainage of a right buttock abscess. He has some fever today. He still is on antibiotic. We will just have to continue the present treatment. GWEN BUCK MD Dec 09, 2018 19:49
[2018-12-09 20:00] VITALS: BP 90/54; PULSE 90; RESP 18
[2018-12-10 02:00] VITALS: BP 98/53; PULSE 110; RESP 17
[2018-12-10] MEDS: metroNIDAZOLE 500 MG/NS (PMX) 100 ML IVPB SCH ×3 (06:21→22:10)
[2018-12-10] MEDS: VANCOMYCIN HCL 1.25 GM in SOD CHLORIDE 0.9% 250 ML IVPB SCH ×3 (06:21→22:10)
--- NOTE | 2018-12-10 07:09 | CONS ---
Consult Date/Type/Reason Admit Date/Time Nov 30, 2018 at 20:47 Initial Consult Date 12/02/18 Type of Consultation: Urology Requesting Provider: ROBIN TAVAREZ MD Date/Time of Note DATE: 12/10/18 TIME: 07:08 Subjective The patient is stable. No events overnight. continues good uo. OBJECTIVE: HEENT: Head is normocephalic. NECK: Supple. HEART: Regular rate. LUNGS: Show diminished breath sounds at the base. ABDOMEN: Soft, nontender to palpation without rebound or guarding. EXTREMITIES: Negative for clubbing, cyanosis, no edema. MUSCULOSKELETAL: The patient's chest exam has dressing over his left chest, clean, dry, intact. GENITOURINARY: The patient's exam has a dressing clean, dry, intact. NEUROLOGIC: No focal deficits. Objective Vitals Vital Signs Date Temp Pulse Resp B/P (MAP) Pulse Ox O2 O2 Flow FiO2 Time Delivery Rate 12/10/18 99.3 110 17 98/53 (68) 94 Room Air 02:00 Intake and Output 12/09/18 12/09/18 12/10/18 1515:00 23:00 07:00 IntakeIntake Total 1150 ml 350 ml 1050 ml OutputOutput Total 1100 ml 1300 ml BalanceBalance 50 ml 350 ml -250 ml Results/Medications Result Diagram: 12/10/18 0619 12/08/18 0630 Results 24 hrs Laboratory Tests Test 12/09/18 14:13 12/10/18 06:19 Vancomycin Level Trough 14.4 White Blood Count 8.8 Red Blood Count 3.22 L Hemoglobin 8.7 L Hematocrit 26.7 L Mean Corpuscular Volume 82.9 Mean Corpuscular Hemoglobin 27.0 L Mean Corpuscular Hemoglobin Concent 32.6 Red Cell Distribution Width 16.1 H Platelet Count 421 #H Mean Platelet Volume 10.0 Immature Granulocytes % 1.500 H Neutrophils % Lymphocytes % Monocytes % Eosinophils % Basophils % Nucleated Red Blood Cells % 0.0 Immature Granulocytes # 0.130 H Neutrophils # Lymphocytes # Monocytes # Eosinophils # Basophils # Nucleated Red Blood Cells # Home Meds Reported Medications Atropine Sulfate/0.9 %Sod Chlr (Atropine 0.01%-Ns Eye Drops) 10 Ml Drops, 1 ML OP BID, #1 7/8/19 Prednisolone Acetate* (Pred Forte*) 5 Ml Susp, 1 DROP LEFT EYE Q1HOUR, EA 12/04/18 Medications Current Medications Ondansetron HCl (Zofran Inj) 4 mg Q6H PRN IV NAUSEA AND/OR VOMITING Last administered on 12/09/18 11:06; Admin Dose 4 MG; Start 11/30/18 at 21:00 Acetaminophen (Tylenol Liquid) 650 mg Q6H PRN PO PAIN LEVEL 1-3 OR FEVER Last administered on 12/09/18 18:38; Admin Dose 650 MG; Start 11/30/18 at 21:00 Vancomycin HCl (Vanco Iv Per Pharmacy) VANCOMYCIN PER PHARMACY PER PROTOCOL XX ; Start 11/30/18 at 21:00 Trimethoprim/ Sulfamethoxazole (Bactrim (Ds)) 1 tab BID PO Last administered on 12/09/18 23:02; Admin Dose 1 TAB; Start 12/04/18 at 11:30 Metronidazole 100 ml @ 100 mls/hr Q8 IVPB Last administered on 12/10/18 06:21; Admin Dose 100 MLS/HR; Start 12/04/18 at 14:00 Morphine Sulfate (morphine) 2 mg Q2H PRN IV MOD TO SEVERE PAIN Last administered on 12/09/18 14:27; Admin Dose 2 MG; Start 12/04/18 at 11:30 Emtricitabine/ Tenofovir (Truvada) 1 tab DAILY PO Last administered on 12/09/18 08:49; Admin Dose 1 TAB; Start 12/06/18 at 09:00 Lamivudine/ Zidovudine (Combivir) 1 tab BID PO Last administered on 12/09/18 23:02; Admin Dose 1 TAB; Start 12/06/18 at 09:00 Sodium Hypochlorite (Dakins Diluted (1/40)) 1 applic DAILY TP Last administered on 12/07/18 08:47; Admin Dose 1 APPLIC; Start 12/06/18 at 09:00 Prednisolone Acetate (Pred-Forte 1%) 1 drop DAILY LEFT EYE Last administered on 12/09/18 08:49; Admin Dose 1 DROP; Start 12/05/18 at 19:00 Atropine Sulfate (Atropine 1% Oph) 1 drop BID LEFT EYE Last administered on 12/09/18 23:03; Admin Dose 1 DROP; Start 12/07/18 at 21:00 Guaifenesin (Robitussin Liquid Cup) 100 mg Q4H PRN PO COUGH Last administered on 12/05/18 20:07; Admin Dose 100 MG; Start 12/05/18 at 19:00 Famotidine (Pepcid) 20 mg Q12 PO Last administered on 12/09/18 23:02; Admin Dose 20 MG; Start 12/06/18 at 21:00 Morphine Sulfate (morphine) 2 mg DAILY PRN IV SEVERE PAIN LEVEL 7-10 Last administered on 12/09/18 23:16; Admin Dose 2 MG; Start 12/07/18 at 13:00 Polyethylene Glycol (Miralax) 17 gm DAILY PO Last administered on 12/09/18 08:49; Admin Dose 17 GM; Start 12/07/18 at 16:00 Docusate Sodium (Colace) 200 mg BID PO Last administered on 12/09/18 08:49; Admin Dose 200 MG; Start 12/07/18 at 21:00 Lactulose (Enulose) 20 gm DAILY PRN PO CONSTIPATION Last administered on 12/07/18 17:07; Admin Dose 20 GM; Start 12/07/18 at 16:00 Miscellaneous Information (Pending Santyl Order For Wound Care) 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 PRN XX WOUND CARE; Start 12/08/18 at 02:30 Vancomycin HCl 1.25 gm/Sodium Chloride 250 ml @ 83.333 mls/ hr Q8H IVPB Last administered on 12/10/18 06:21; Admin Dose 83.333 MLS/HR; Start 12/08/18 at 22:00 Multivitamins/ Minerals (Theragran-M) 1 tab DAILY PO Last administered on 12/09/18 08:49; Admin Dose 1 TAB; Start 12/09/18 at 09:00 Ascorbic Acid (Vitamin C) 500 mg BID PO Last administered on 12/09/18 23:02; A dmin Dose 500 MG; Start 12/09/18 at 09:00 Zinc Sulfate (Zinc Sulfate) 220 mg DAILY PO Last administered on 12/09/18 08:49; Admin Dose 220 MG; Start 12/09/18 at 09:00 Assessment/Plan Hospital Course (Demo Recall) 1. Nonoliguric acute kidney injury. Etiology is secondary to hemodynamics. Renal function is improved. Continue to monitor. 2. Hyponatremia. 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 Continue to monitor sodium levels. improved. 3. Anemia. Continue to monitor and hematocrit levels. 4. Mineral bone disorder. Monitor calcium and phosphorus levels. 5. 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 6. Fasciitis. The patient is status post multiple debridements, status post incision and drainage of perineal and penile region. Continue current antibiotic regimen, dressing changes, follow up with urology. 7. Status post respiratory failure. 8. Encephalopathy, resolving. 9. History of human immunodeficiency virus. Continue to monitor. 10. History of hepatitis. MANASA ALBRECHT DO Dec 10, 2018 07:09
--- NOTE | 2018-12-10 07:55 | PN ---
DATE: 12/10/2018 SUBJECTIVE: The patient is stable. No events overnight. No fevers, chills, nausea or vomiting. OBJECTIVE: VITAL SIGNS: Blood pressure 98/53, respiration 17, pulse 110, temperature 99.3. HEENT: Head is normocephalic. NECK: Supple. HEART: Regular rate. LUNGS: Show diminished breath sounds at the base. ABDOMEN: Soft, nontender to palpation without rebound or guarding. EXTREMITIES: Negative for clubbing, cyanosis, no edema. DERMATOLOGIC: No rashes. MUSCULOSKELETAL: The patient has noted dressing and wounds over his chest and abdomen. NEUROLOGIC: No focal deficits. MEDICATIONS: Have been reviewed. LABORATORY DATA: Has been reviewed. IMAGING STUDIES: Have been reviewed. ASSESSMENT AND PLAN: 1. Nonoliguric acute kidney injury. Etiology is secondary to hemodynamics. Renal function is impro oren. Continue to monitor. 2. Hypernatremia, etiology is likely secondary to SIADH, continue to monitor sodium levels are impro oren. 3. Anemia. Monitor hemoglobin and hematocrit levels. 4. Mineral bone disorder. Monitor calcium and phosphorus levels. 5. Sepsis secondary to Nida gangrene, necrotizing fasciitis. Patient is status post multiple de bridements, status post incision and drainage. Continue antibiotic regimen. Continue dressing de s[place] es. Continue wound care. Follow up with urology. 6. Status post respiratory failure. 7. Encephalopathy, resolving. 8. History of human immunodeficiency virus. 9. History of hepatitis. Dictated By: MANASA ANAYA/MESFIN Conf#: [id number] DID#: [id number]
[2018-12-10 08:26] VITALS: BP 89/52; PULSE 121; RESP 20
[2018-12-10] MEDS ORDERED: SOD CHLORIDE 0.9% 1,000 ML IV ONE (08:30)
[2018-12-10] MEDS: LAMIVUDINE/ZIDOVUDINE TAB PO SCH ×2 (08:41→22:09)
[2018-12-10] MEDS: ACETAMINOPHEN 650MG/20.3ML CUP PO PRN ×2 (08:41→16:01)
[2018-12-10] MEDS: PREDNISOLONE ACET 1% 5 ML OPH LEFT EYE SCH (08:41)
[2018-12-10] MEDS: ZINC SULFATE 220 MG CAP PO SCH (08:41)
[2018-12-10] MEDS: TRIMETHOPRIM/SULFAMETHOX (DS) TAB PO SCH (08:42)
[2018-12-10] MEDS: EMTRICITABINE/TENOFOVIR TAB PO SCH (08:42)
[2018-12-10] MEDS: DOCUSATE SODIUM 100 MG CAP PO SCH ×2 (08:42→21:00)
[2018-12-10] MEDS: ASCORBIC ACID 500 MG TAB PO SCH ×2 (08:42→22:08)
[2018-12-10] MEDS: ATROPINE 1% 5 ML OPH LEFT EYE SCH ×2 (08:42→22:10)
[2018-12-10] MEDS: MULTIVITAMINS/MINERALS TAB PO SCH (08:42)
[2018-12-10] MEDS: POLYETHYLENE GLYCOL 17 GM PACKET PO SCH (08:43)
[2018-12-10] MEDS: FAMOTIDINE 20 MG TAB PO SCH ×2 (08:43→22:09)
[2018-12-10] MEDS: DAKINS 0.0125%(1/40) 473 ML SOLUTION TP SCH ×2 (08:44→11:28)
[2018-12-10 10:02] VITALS: BP 102/59; PULSE 89
--- NOTE | 2018-12-10 10:59 | PN ---
Date/Time of Note Date/Time of Note DATE: 12/10/18 TIME: 10:55 Assessment/Plan Lines/Catheters IV Catheter Type (from Nrs): PICC Line Me[place] in Place (from Nrs): Yes Subjective 24 Hr Interval Summary Patient is healing really well. Stable. Low-grade temperature still persist. Labs within normal limits. Tolerates diet having bowel movement. Wounds are granulating. No evidence of progressive infection. Patient is getting local wound care with dressing changes and wound VAC. From my standpoint probably no more surgical intervention is planned. Patient will need continued care of by urologist, possible plastic surgery consult for possibility of skin graft if needed. Exam/Review of Systems Vital Signs Vitals Vital Signs Date Temp Pulse Resp B/P (MAP) Pulse Ox O2 O2 Flow FiO2 Time Delivery Rate 12/10/18 99.1 89 102/59 10:02 (73) 12/10/18 20 100 Room Air 08:26 Intake and Output 12/09/18 12/09/18 12/10/18 1515:00 23:00 07:00 IntakeIntake Total 1150 ml 350 ml 1050 ml OutputOutput Total 1100 ml 1300 ml BalanceBalance 50 ml 350 ml -250 ml Results Result Diagram: 12/10/18 0619 12/10/18 0619 KILEY PIERRE MD Dec 10, 2018 10:59
[2018-12-10] MEDS: morphine 2 MG INJ IV PRN (11:27)
--- NOTE | 2018-12-10 11:40 | CONS ---
Assessment/Plan Assessment/Plan Hospital Course (Demo Recall) No acute events overnight, Tm100.4 Indwelling: PICC line Microbiology: Wound culture grew MRSA, repeat cx + GNR Antimicrobials: Vancomycin, Bactrim, Truvada, Combivir, Flagyl Physical examination: Well-developed well-nourished middle-aged man who is alert in no distress. Head atraumatic normocephalic sclera nonicteric neck is supple chest rise symmetrical breath sounds clear heart: S1-S2 abdomen soft bowel sounds present extremities without cyanosis. Skin: Patient has dressing over his left side of the abdomen and bilateral wound vacs to hips Assessment: 1. Resolving sepsis 2. MRSA Fornier's gangrene and necrotizing fasciitis, status post multiple recurrent debridement ==> latest one on 12/08/18 by urology 3. HIV positive, CD4 count 224 4. Status post renal failure Plan: Vanco level noted, will dc Bactrim, add Merrem, await for final cx's, surgical rec-s noted==> no planned interventions Consultation Date/Type/Reason Admit Date/Time Nov 30, 2018 at 20:47 Initial Consult Date 12/02/18 Type of Consult id Requesting Provider: ROBIN TAVAREZ MD Date/Time of Note DATE: 12/10/18 TIME: 11:38 Exam/Review of Systems Exam Vitals Vital Signs Date Temp Pulse Resp B/P (MAP) Pulse Ox O2 O2 Flow FiO2 Time Delivery Rate 12/10/18 99.1 89 102/59 10:02 (73) 12/10/18 20 100 Room Air 08:26 Intake and Output 12/09/18 12/09/18 12/10/18 1515:00 23:00 07:00 IntakeIntake Total 1150 ml 350 ml 1050 ml OutputOutput Total 1100 ml 1300 ml BalanceBalance 50 ml 350 ml -250 ml Results Result Diagram: 12/10/1819 12/10/1819 Results 24hrs Laboratory Tests Test 12/09/18 14:13 12/10/18 06:19 Vancomycin Level Trough 14.4 White Blood Count 8.8 Red Blood Count 3.22 L Hemoglobin 8.7 L Hematocrit 26.7 L Mean Corpuscular Volume 82.9 Mean Corpuscular Hemoglobin 27.0 L Mean Corpuscular Hemoglobin Concent 32.6 Red Cell Distribution Width 16.1 H Platelet Count 421 #H Mean Platelet Volume 10.0 Immature Granulocytes % 1.500 H Neutrophils % Segmented Neutrophils % (Manual) 55 Band Neutrophils % (Manual) 18 H Lymphocytes % Lymphocytes % (Manual) 19 Reactive Lymphocytes % (Manual) 1 H Monocytes % Monocytes % (Manual) 4 Eosinophils % Eosinophils % (Manual) 2 Basophils % Metamyelocytes % (manual) 1 H Nucleated Red Blood Cells % 0.0 Immature Granulocytes # 0.130 H Neutrophils # Neutrophils # (Manual) 5.0 Band Neutrophils # 1.5 H Lymphocytes (Manual) 1.6 Lymphocytes # Reactive Lymphocytes # 0.0 Monocytes # Monocytes # (Manual) 0.3 Eosinophils # Basophils # Metamyelocytes # 0.0 Nucleated Red Blood Cells # Platelet Estimate NORMAL Giant Platelets 1 H Polychromasia 1+ Hypochromasia 1+ Anisocytosis 2+ Microcytosis 1+ Macrocytosis 1+ Sodium Level 127 L Potassium Level 4.1 Chloride Level 98 Carbon Dioxide Level 21 Anion Gap 8 Blood Urea Nitrogen 11 Creatinine 0.94 Est Glomerular Filtrat Rate mL/min > 60 Glucose Level 88 Calcium Level 7.3 L Phosphorus Level 2.7 Magnesium Level 1.6 L Medications Medication Current Medications Ondansetron HCl (Zofran Inj) 4 mg Q6H PRN IV NAUSEA AND/OR VOMITING Last administered on 12/09/18 11:06; Admin Dose 4 MG; Start 11/30/18 at 21:00 Acetaminophen (Tylenol Liquid) 650 mg Q6H PRN PO PAIN LEVEL 1-3 OR FEVER Last administered on 12/10/18 08:41; Admin Dose 650 MG; Start 11/30/18 at 21:00 Vancomycin HCl (Vanco Iv Per Pharmacy) VANCOMYCIN PER PHARMACY PER PROTOCOL XX ; Start 11/30/18 at 21:00 Metronidazole 100 ml @ 100 mls/hr Q8 IVPB Last administered on 12/10/18 06:21; Admin Dose 100 MLS/HR; Start 12/04/18 at 14:00 Morphine Sulfate (morphine) 2 mg Q2H PRN IV MOD TO SEVERE PAIN Last administered on 12/10/18 11:27; Admin Dose 2 MG; Start 12/04/18 at 11:30 Emtricitabine/ Tenofovir (Truvada) 1 tab DAILY PO Last administered on 12/10/18 08:42; Admin Dose 1 TAB; Start 12/06/18 at 09:00 Lamivudine/ Zidovudine (Combivir) 1 tab BID PO Last administered on 12/10/18 08:41; Admin Dose 1 TAB; Start 12/06/18 at 09:00 Sodium Hypochlorite (Dakins Diluted ()) 1 applic DAILY TP Last administered on 12/10/18 11:28; Admin Dose 1 APPLIC; Start 12/06/18 at 09:00 Prednisolone Acetate (Pred-Forte 1%) 1 drop DAILY LEFT EYE Last administered on 12/10/18 08:41; Admin Dose 1 DROP; Start 12/05/18 at 19:00 Atropine Sulfate (Atropine 1% Oph) 1 drop BID LEFT EYE Last administered on 12/10/18 08:42; Admin Dose 1 DROP; Start 12/07/18 at 21:00 Guaifenesin (Robitussin Liquid Cup) 100 mg Q4H PRN PO COUGH Last administered on 12/05/18 20:07; Admin Dose 100 MG; Start 12/05/18 at 19:00 Famotidine (Pepcid) 20 mg Q12 PO Last administered on 12/10/18 08:43; Admin Dose 20 MG; Start 12/06/18 at 21:00 Morphine Sulfate (morphine) 2 mg DAILY PRN IV SEVERE PAIN LEVEL 7-10 Last administered on 12/09/18 23:16; Admin Dose 2 MG; Start 12/07/18 at 13:00 Polyethylene Glycol (Miralax) 17 gm DAILY PO Last administered on 12/10/18 08:43; Admin Dose 17 GM; Start 12/07/18 at 16:00 Docusate Sodium (Colace) 200 mg BID PO Last administered on 12/10/18 08:42; Admin Dose 200 MG; Start 12/07/18 at 21:00 Lactulose (Enulose) 20 gm DAILY PRN PO CONSTIPATION Last administered on 12/07/18 17:07; Admin Dose 20 GM; Start 12/07/18 at 16:00 [facility] 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 PRN XX WOUND CARE; Start 12/08/18 at 02:30 Vancomycin HCl 1.25 gm/Sodium Chloride 250 ml @ 83.333 mls/ hr Q8H IVPB Last administered on 12/10/18 06:21; Admin Dose 83.333 MLS/HR; Start 12/08/18 at 22:00 Multivitamins/ Minerals (Theragran-M) 1 tab DAILY PO Last administered on 12/10/18 08:42; Admin Dose 1 TAB; Start 12/09/18 at 09:00 Ascorbic Acid (Vitamin C) 500 mg BID PO Last administered on 12/10/18 08:42; Admin Dose 500 MG; Start 12/09/18 at 09:00 Zinc Sulfate (Zinc Sulfate) 220 mg DAILY PO Last administered on 12/10/18 08:41; Admin Dose 220 MG; Start 12/09/18 at 09:00 CRYSTAL TALAVERA NP Dec 10, 2018 11:40
--- NOTE | 2018-12-10 11:57 | CONS ---
Consult Date/Type/Reason Admit Date/Time Nov 30, 2018 at 20:47 Initial Consult Date 12/02/18 Type of Consultation: Urology Reason for Consultation Nida gangrene and necrotizing fasciitis Requesting Provider: ROBIN TAVAREZ MD Date/Time of Note DATE: 12/10/18 TIME: 11:54 Subjective Patient is feeling better today. He did have fever earlier. Objective Vitals Vital Signs Date Temp Pulse Resp B/P (MAP) Pulse Ox O2 O2 Flow FiO2 Time Delivery Rate 12/10/18 99.1 89 102/59 10:02 (73) 12/10/18 20 100 Room Air 08:26 Intake and Output 12/09/18 12/09/18 12/10/18 1515:00 23:00 07:00 IntakeIntake Total 1150 ml 350 ml 1050 ml OutputOutput Total 1100 ml 1300 ml BalanceBalance 50 ml 350 ml -250 ml Exam The dressing over the wounds was changed last night and the nurses will change it again today. The Meade catheter is draining clear urine. Results/Medications Result Diagram: 12/10/1819 12/10/1819 Results 24 hrs Laboratory Tests Test 12/09/18 14:13 12/10/18 06:19 Vancomycin Level Trough 14.4 White Blood Count 8.8 Red Blood Count 3.22 L Hemoglobin 8.7 L Hematocrit 26.7 L Mean Corpuscular Volume 82.9 Mean Corpuscular Hemoglobin 27.0 L Mean Corpuscular Hemoglobin Concent 32.6 Red Cell Distribution Width 16.1 H Platelet Count 421 #H Mean Platelet Volume 10.0 Immature Granulocytes % 1.500 H Neutrophils % Segmented Neutrophils % (Manual) 55 Band Neutrophils % (Manual) 18 H Lymphocytes % Lymphocytes % (Manual) 19 Reactive Lymphocytes % (Manual) 1 H Monocytes % Monocytes % (Manual) 4 Eosinophils % Eosinophils % (Manual) 2 Basophils % Metamyelocytes % (manual) 1 H Nucleated Red Blood Cells % 0.0 Immature Granulocytes # 0.130 H Neutrophils # Neutrophils # (Manual) 5.0 Band Neutrophils # 1.5 H Lymphocytes (Manual) 1.6 Lymphocytes # Reactive Lymphocytes # 0.0 Monocytes # Monocytes # (Manual) 0.3 Eosinophils # Basophils # Metamyelocytes # 0.0 Nucleated Red Blood Cells # Platelet Estimate NORMAL Giant Platelets 1 H Polychromasia 1+ Hypochromasia 1+ Anisocytosis 2+ Microcytosis 1+ Macrocytosis 1+ Sodium Level 127 L Potassium Level 4.1 Chloride Level 98 Carbon Dioxide Level 21 Anion Gap 8 Blood Urea Nitrogen 11 Creatinine 0.94 Est Glomerular Filtrat Rate mL/min > 60 Glucose Level 88 Calcium Level 7.3 L Phosphorus Level 2.7 Magnesium Level 1.6 L Home Meds Reported Medications Atropine Sulfate/0.9 %Sod Chlr (Atropine 0.01%-Ns Eye Drops) 10 Ml Drops, 1 ML OP BID, #1 12/05/18 Prednisolone Acetate* (Pred Forte*) 5 Ml Susp, 1 DROP LEFT EYE Q1HOUR, EA 12/04/18 Medications Current Medications Ondansetron HCl (Zofran Inj) 4 mg Q6H PRN IV NAUSEA AND/OR VOMITING Last administered on 12/09/18 11:06; Admin Dose 4 MG; Start 11/30/18 at 21:00 Acetaminophen (Tylenol Liquid) 650 mg Q6H PRN PO PAIN LEVEL 1-3 OR FEVER Last administered on 12/10/18 08:41; Admin Dose 650 MG; Start 11/30/18 at 21:00 Vancomycin HCl (Vanco Iv Per Pharmacy) VANCOMYCIN PER PHARMACY PER PROTOCOL XX ; Start 11/30/18 at 21:00 Metronidazole 100 ml @ 100 mls/hr Q8 IVPB Last administered on 12/10/18 06:21; Admin Dose 100 MLS/HR; Start 12/04/18 at 14:00 Morphine Sulfate (morphine) 2 mg Q2H PRN IV MOD TO SEVERE PAIN Last administered on 12/10/18 11:27; Admin Dose 2 MG; Start 12/04/18 at 11:30 Emtricitabine/ Tenofovir (Truvada) 1 tab DAILY PO Last administered on 11/28 08:42; Admin Dose 1 TAB; Start 12/06/18 at 09:00 Lamivudine/ Zidovudine (Combivir) 1 tab BID PO Last administered on 12/10/18 08:41; Admin Dose 1 TAB; Start 12/06/18 at 09:00 Sodium Hypochlorite (Dakins Diluted ()) 1 applic DAILY TP Last administered on 12/10/18 11:28; Admin Dose 1 APPLIC; Start 12/06/18 at 09:00 Prednisolone Acetate (Pred-Forte 1%) 1 drop DAILY LEFT EYE Last administered on 12/10/18 08:41; Admin Dose 1 DROP; Start 12/05/18 at 19:00 Atropine Sulfate (Atropine 1% Oph) 1 drop BID LEFT EYE Last administered on 12/10/18 08:42; Admin Dose 1 DROP; Start 12/07/18 at 21:00 Guaifenesin (Robitussin Liquid Cup) 100 mg Q4H PRN PO COUGH Last administered on 12/05/18 20:07; Admin Dose 100 MG; Start 12/05/18 at 19:00 Famotidine (Pepcid) 20 mg Q12 PO Last administered on 12/10/18 08:43; Admin Dose 20 MG; Start 12/06/18 at 21:00 Morphine Sulfate (morphine) 2 mg DAILY PRN IV SEVERE PAIN LEVEL 7-10 Last administered on 12/09/18 23:16; Admin Dose 2 MG; Start 12/07/18 at 13:00 Polyethylene Glycol (Miralax) 17 gm DAILY PO Last administered on 12/10/18 08:43; Admin Dose 17 GM; Start 12/07/18 at 16:00 Docusate Sodium (Colace) 200 mg BID PO Last administered on 12/10/18 08:42; Admin Dose 200 MG; Start 12/07/18 at 21:00 Lactulose (Enulose) 20 gm DAILY PRN PO CONSTIPATION Last administered on 12/07/18 17:07; Admin Dose 20 GM; Start 12/07/18 at 16:00 Miscellaneous Information (Pending [facility] Order For Wound Care) 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 PRN XX WOUND CARE; Start 12/08/18 at 02:30 Vancomycin HCl 1.25 gm/Sodium Chloride 250 ml @ 83.333 mls/ hr Q8H IVPB Last administered on 12/10/18 06:21; Admin Dose 83.333 MLS/HR; Start 12/08/18 at 22:00 Multivitamins/ Minerals (Theragran-M) 1 tab DAILY PO Last administered on 12/10/18 08:42; Admin Dose 1 TAB; Start 12/09/18 at 09:00 Ascorbic Acid (Vitamin C) 500 mg BID PO Last administered on 12/10/18 08:42; Admin Dose 500 MG; Start 12/09/18 at 09:00 Zinc Sulfate (Zinc Sulfate) 220 mg DAILY PO Last administered on 12/10/18at 08:41; Admin Dose 220 MG; Start 12/09/18 at 09:00 Meropenem/Sodium Chloride 50 ml @ 100 mls/hr Q12 IVPB ; Start 12/10/18 at 12:00 Assessment/Plan Hospital Course (Demo Recall) 42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 He underwent incision and drainage of the abdominal wall all the way up to the lower ribs on the left side and also of the left thigh and right inguinal area and debridement of the scrotum and perineal area. The wounds are getting better. He underwent debridement and incision and drainage of a right buttock abscess. He is doing better. His CBC showed a white count that has come down to normal. The urine in the Meade catheter is clear and the dressing and the packing of the wounds is changed daily. For now continue present treatment GWEN BUCK MD Dec 10, 2018 11:57
[2018-12-10] MEDS: MEROPENEM 1 GM/50ML(PMX) 50 ML IVPB SCH ×2 (12:45→20:53)
[2018-12-10 13:50] VITALS: BP 101/59; PULSE 94; RESP 20
--- NOTE | 2018-12-10 16:07 | PN ---
Date/Time of Note Date/Time of Note DATE: 12/10/18 TIME: 16:04 Assessment/Plan VTE Prophylaxis Risk score (from Nsg)>0 risk: 5 SCD applied (from Ns): Yes Pharmacological prophylaxis: heparin Lines/Catheters IV Catheter Type (from Nrsg): PICC Line Central line still needed: Yes Urinary Cath still in place: Yes Reason Cath still needed: urinary retention Assessment/Plan Hospital Course Appears well no distress RRR CTAB Soft nt nd Wound vac applied to wound of LLQ Buttocks abscess, packed Meade in place 42 yo male with HIV/AIDS who presented with fourniers gangrene and necrotizing fasciitis of abdmoen - s/p I and D procedures per She Damon and Mela who are following. No plan for repeat procedures at this time though may eventually need a skin graft. We had considered transfer to tertiary center for hyperbaric oxygen therapy however it apperas this will not be possible - Wound care, wound vac - Abx per ID HIV/AIDS: - ARVs and ppx per ID Hyponatremia: - Unclear etioloyg but suspect SIADH. WIill check urine lytes Anemia: - Check iron stores Dispo: Will likely need to remain in house for wound care Result Diagram: 12/10/18 0619 12/10/18 0619 Results 24hrs Laboratory Tests Test 12/10/18 06:19 White Blood Count 8.8 Red Blood Count 3.22 L Hemoglobin 8.7 L Hematocrit 26.7 L Mean Corpuscular Volume 82.9 Mean Corpuscular Hemoglobin 27.0 L Mean Corpuscular Hemoglobin Concent 32.6 Red Cell Distribution Width 16.1 H Platelet Count 421 #H Mean Platelet Volume 10.0 Immature Granulocytes % 1.500 H Neutrophils % Segmented Neutrophils % (Manual) 55 Band Neutrophils % (Manual) 18 H Lymphocytes % Lymphocytes % (Manual) 19 Reactive Lymphocytes % (Manual) 1 H Monocytes % Monocytes % (Manual) 4 Eosinophils % Eosinophils % (Manual) 2 Basophils % Metamyelocytes % (manual) 1 H Nucleated Red Blood Cells % 0.0 Immature Granulocytes # 0.130 H Neutrophils # Neutrophils # (Manual) 5.0 Band Neutrophils # 1.5 H Lymphocytes (Manual) 1.6 Lymphocytes # Reactive Lymphocytes # 0.0 Monocytes # Monocytes # (Manual) 0.3 Eosinophils # Basophils # Metamyelocytes # 0.0 Nucleated Red Blood Cells # Platelet Estimate NORMAL Giant Platelets 1 H Polychromasia 1+ Hypochromasia 1+ Anisocytosis 2+ Microcytosis 1+ Macrocytosis 1+ Sodium Level 127 L Potassium Level 4.1 Chloride Level 98 Carbon Dioxide Level 21 Anion Gap 8 Blood Urea Nitrogen 11 Creatinine 0.94 Est Glomerular Filtrat Rate mL/min > 60 Glucose Level 88 Calcium Level 7.3 L Phosphorus Level 2.7 Magnesium Level 1.6 L Subjective 24 Hr Interval Summary Free Text/Dictation Low grade temp and mild hyptension but feelign well generally Exam/Review of Systems Exam Vitals Vital Signs Date Temp Pulse Resp B/P (MAP) Pulse Ox O2 O2 Flow FiO2 Time Delivery Rate 12/10/18 100.3 16:01 12/10/18 94 20 101/59 100 Room Air 13:50 (73) Intake and Output 12/09/18 12/09/18 12/10/18 1515:00 23:00 07:00 IntakeIntake Total 1150 ml 350 ml 1050 ml OutputOutput Total 1100 ml 1300 ml BalanceBalance 50 ml 350 ml -250 ml Results Results 24hrs Laboratory Tests Test 12/10/18 06:19 White Blood Count 8.8 Red Blood Count 3.22 L Hemoglobin 8.7 L Hematocrit 26.7 L Mean Corpuscular Volume 82.9 Mean Corpuscular Hemoglobin 27.0 L Mean Corpuscular Hemoglobin Concent 32.6 Red Cell Distribution Width 16.1 H Platelet Count 421 #H Mean Platelet Volume 10.0 Immature Granulocytes % 1.500 H Neutrophils % Segmented Neutrophils % (Manual) 55 Band Neutrophils % (Manual) 18 H Lymphocytes % Lymphocytes % (Manual) 19 Reactive Lymphocytes % (Manual) 1 H Monocytes % Monocytes % (Manual) 4 Eosinophils % Eosinophils % (Manual) 2 Basophils % Metamyelocytes % (manual) 1 H Nucleated Red Blood Cells % 0.0 Immature Granulocytes # 0.130 H Neutrophils # Neutrophils # (Manual) 5.0 Band Neutrophils # 1.5 H Lymphocytes (Manual) 1.6 Lymphocytes # Reactive Lymphocytes # 0.0 Monocytes # Monocytes # (Manual) 0.3 Eosinophils # Basophils # Metamyelocytes # 0.0 Nucleated Red Blood Cells # Platelet Estimate NORMAL Giant Platelets 1 H Polychromasia 1+ Hypochromasia 1+ Anisocytosis 2+ Microcytosis 1+ Macrocytosis 1+ Sodium Level 127 L Potassium Level 4.1 Chloride Level 98 Carbon Dioxide Level 21 Anion Gap 8 Blood Urea Nitrogen 11 Creatinine 0.94 Est Glomerular Filtrat Rate mL/min > 60 Glucose Level 88 Calcium Level 7.3 L Phosphorus Level 2.7 Magnesium Level 1.6 L Medications Medication Current Medications Ondansetron HCl (Zofran Inj) 4 mg Q6H PRN IV NAUSEA AND/OR VOMITING Last administered on 12/09/18 11:06; Admin Dose 4 MG; Start 11/30/18 at 21:00 Acetaminophen (Tylenol Liquid) 650 mg Q6H PRN PO PAIN LEVEL 1-3 OR FEVER Last administered on 12/10/18 16:01; Admin Dose 650 MG; Start 11/30/18 at 21:00 Vancomycin HCl (Vanco Iv Per Pharmacy) VANCOMYCIN PER PHARMACY PER PROTOCOL XX ; Start 11/30/18 at 21:00 Metronidazole 100 ml @ 100 mls/hr Q8 IVPB Last administered on 12/10/18 14:39; Admin Dose 100 MLS/HR; Start 12/04/18 at 14:00 Morphine Sulfate (morphine) 2 mg Q2H PRN IV MOD TO SEVERE PAIN Last administered on 12/10/18 11:27; Admin Dose 2 MG; Start 12/04/18 at 11:30 Emtricitabine/ Tenofovir (Truvada) 1 tab DAILY PO Last administered on 12/10/18 at 08:42; Admin Dose 1 TAB; Start 12/06/18 at 09:00 Lamivudine/ Zidovudine (Combivir) 1 tab BID PO Last administered on 12/10/18 08:41; Admin Dose 1 TAB; Start 12/06/18 at 09:00 Sodium Hypochlorite (Dakins Diluted (40)) 1 applic DAILY TP Last administered on 12/10/18 11:28; Admin Dose 1 APPLIC; Start 12/06/18 at 09:00 Prednisolone Acetate (Pred-Forte 1%) 1 drop DAILY LEFT EYE Last administered on 12/10/18 08:41; Admin Dose 1 DROP; Start 12/05/18 at 19:00 Atropine Sulfate (Atropine 1% Oph) 1 drop BID LEFT EYE Last administered on 12/10/18 08:42; Admin Dose 1 DROP; Start 12/07/18 at 21:00 Guaifenesin (Robitussin Liquid Cup) 100 mg Q4H PRN PO COUGH Last administered on 12/05/18 20:07; Admin Dose 100 MG; Start 12/05/18 at 19:00 Famotidine (Pepcid) 20 mg Q12 PO Last administered on 12/10/18 08:43; Admin Dose 20 MG; Start 12/06/18 at 21:00 Morphine Sulfate (morphine) 2 mg DAILY PRN IV SEVERE PAIN LEVEL 7-10 Last administered on 12/09/18 23:16; Admin Dose 2 MG; Start 12/07/18 at 13:00 Polyethylene Glycol (Miralax) 17 gm DAILY PO Last administered on 12/10/18 08:43; Admin Dose 17 GM; Start 12/07/18 at 16:00 Docusate Sodium (Colace) 200 mg BID PO Last administered on 12/10/18 08:42; Admin Dose 200 MG; Start 12/07/18 at 21:00 Lactulose (Enulose) 20 gm DAILY PRN PO CONSTIPATION Last administered on 12/07/18 17:07; Admin Dose 20 GM; Start 12/07/18 at 16:00 Miscellaneous Information (Pending [facility] Order For Wound Care) 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 PRN XX WOUND CARE; Start 12/08/18 at 02:30 Vancomycin HCl 1.25 gm/Sodium Chloride 250 ml @ 83.333 mls/ hr Q8H IVPB Last administered on 12/10/18 14:44; Admin Dose 83.333 MLS/HR; Start 12/08/18 at 22:00 Multivitamins/ Minerals (Theragran-M) 1 tab DAILY PO Last administered on 12/10/18 08:42; Admin Dose 1 TAB; Start 12/09/18 at 09:00 Ascorbic Acid (Vitamin C) 500 mg BID PO Last administered on 12/10/18 08:42; Admin Dose 500 MG; Start 12/09/18 at 09:00 Zinc Sulfate (Zinc Sulfate) 220 mg DAILY PO Last administered on 12/10/18 08:41; Admin Dose 220 MG; Start 12/09/18 at 09:00 Meropenem/Sodium Chloride 50 ml @ 100 mls/hr Q12 IVPB Last administered on 12/10/18 12:45; Admin Dose 100 MLS/HR; Start 12/10/18 at 12:00 JIMI SCHAFER MD Dec 10, 2018 16:07
[2018-12-10 20:00] VITALS: BP_SYST 88; BP_SYST 95; BP_DIAS 52; BP_DIAS 53; PULSE 115; PULSE 116
[2018-12-10] MEDS: ONDANSETRON 4 MG INJ IV PRN (20:37)
[2018-12-10] MEDS ORDERED: SOD CHLORIDE 0.9% 500 ML IV ONE (21:00)
[2018-12-10] MEDS: IBUPROFEN 400 MG TAB PO PRN (22:10)
[2018-12-10] MEDS ORDERED: ACETAMINOPHEN 1000MG/100ML IV 100 ML IVPB PRN (23:30)
[2018-12-11] VITALS (8 sets, daily range): BP systolic 84–108; BP diastolic 50–59; PULSE 79–115; RESP 18–20
[2018-12-11] MEDS: metroNIDAZOLE 500 MG/NS (PMX) 100 ML IVPB SCH (05:22)
[2018-12-11] MEDS: VANCOMYCIN HCL 1.25 GM in SOD CHLORIDE 0.9% 250 ML IVPB SCH ×3 (05:23→21:02)
--- NOTE | 2018-12-11 07:42 | CONS ---
Consult Date/Type/Reason Admit Date/Time Nov 30, 2018 at 20:47 Initial Consult Date 12/02/18 Type of Consultation: Urology Requesting Provider: ROBIN TAVAREZ MD Date/Time of Note DATE: 12/11/18 TIME: 07:40 Subjective The patient is stable. Pt has been experiencing fevers. At the beginning of the shift his temperature was 102.9. Pt was also feeling nauseous, and he threw up one time. Pt also received a bolus of 500mls NS. After these interventions, pt's temperature was 98.6 around 2 in the morning; blood pressure remains in the 90's. continues good uo. OBJECTIVE: HEENT: Head is normocephalic. NECK: Supple. HEART: Regular rate. LUNGS: Show diminished breath sounds at the base. ABDOMEN: Soft, nontender to palpation without rebound or guarding. EXTREMITIES: Negative for clubbing, cyanosis, no edema. MUSCULOSKELETAL: The patient's chest exam has dressing over his left chest, clean, dry, intact. GENITOURINARY: The patient's exam has a dressing clean, dry, intact. NEUROLOGIC: No focal deficits. Objective Vitals Vital Signs Date Temp Pulse Resp B/P (MAP) Pulse Ox O2 O2 Flow FiO2 Time Delivery Rate 12/11/18 101.3 06:47 12/11/18 96/57 (70) 06:42 12/11/18 79 02:26 12/11/18 98 02:00 12/10/18 20 Room Air 13:50 Intake and Output 12/10/18 12/10/18 12/11/18 1515:00 23:00 07:00 IntakeIntake Total 2220 ml 1250 ml 1850 ml OutputOutput Total 1200 ml 300 ml 2100 ml BalanceBalance 1020 ml 950 ml -250 ml Results/Medications Result Diagram: 12/10/18 0619 12/11/18 0522 Results 24 hrs Laboratory Tests Test 12/10/18 16:15 12/11/18 05:20 12/11/18 05:22 Urine Osmolality 639 Urine Random Sodium 181 H Iron Level 37 Total Iron Binding Capacity 206 L Percent Iron Saturation 18 L Sodium Level 133 L Potassium Level 4.1 Chloride Level 106 Carbon Dioxide Level 20 L Anion Gap 7 Blood Urea Nitrogen 12 Creatinine 0.76 Est Glomerular Filtrat Rate mL/min > 60 Glucose Level 94 Calcium Level 7.3 L Ferritin Pending Home Meds Reported Medications Atropine Sulfate/0.9 %Sod Chlr (Atropine 0.01%-Ns Eye Drops) 10 Ml Drops, 1 ML OP BID, #1 12/05/18 Prednisolone Acetate* (Pred Forte*) 5 Ml Susp, 1 DROP LEFT EYE Q1HOUR, EA 12/04/18 Medications Current Medications Ondansetron HCl (Zofran Inj) 4 mg Q6H PRN IV NAUSEA AND/OR VOMITING Last administered on 12/10/18 20:37; Admin Dose 4 MG; Start 11/30/18 at 21:00 Acetaminophen (Tylenol Liquid) 650 mg Q6H PRN PO PAIN LEVEL 1-3 OR FEVER Last administered on 12/10/18 16:01; Admin Dose 650 MG; Start 11/30/18 at 21:00 Vancomycin HCl (Vanco Iv Per Pharmacy) VANCOMYCIN PER PHARMACY PER PROTOCOL XX ; Start 11/30/18 at 21:00 Metronidazole 100 ml @ 100 mls/hr Q8 IVPB Last administered on 12/11/18 05:22; Admin Dose 100 MLS/HR; Start 12/04/18 at 14:00 Morphine Sulfate (morphine) 2 mg Q2H PRN IV MOD TO SEVERE PAIN Last administered on 12/10/18 11:27; Admin Dose 2 MG; Start 12/04/18 at 11:30 Emtricitabine/ Tenofovir (Truvada) 1 tab DAILY PO Last administered on 12/10/18 08:42; Admin Dose 1 TAB; Start 12/06/18 at 09:00 Lamivudine/ Zidovudine (Combivir) 1 tab BID PO Last administered on 12/10/18 22:09; Admin Dose 1 TAB; Start 12/06/18 at 09:00 Sodium Hypochlorite (Dakins Diluted ()) 1 applic DAILY TP Last administered on 12/10/18 11:28; Admin Dose 1 APPLIC; Start 12/06/18 at 09:00 Prednisolone Acetate (Pred-Forte 1%) 1 drop DAILY LEFT EYE Last administered on 12/10/18 08:41; Admin Dose 1 DROP; Start 12/05/18 at 19:00 Atropine Sulfate (Atropine 1% Oph) 1 drop BID LEFT EYE Last administered on 12/10/18 22:10; Admin Dose 1 DROP; Start 12/07/18 at 21:00 Guaifenesin (Robitussin Liquid Cup) 100 mg Q4H PRN PO COUGH Last administered on 12/05/18 20:07; Admin Dose 100 MG; Start 12/05/18 at 19:00 Famotidine (Pepcid) 20 mg Q12 PO Last administered on 12/10/18 22:09; Admin Dose 20 MG; Start 12/06/18 at 21:00 Morphine Sulfate (morphine) 2 mg DAILY PRN IV SEVERE PAIN LEVEL 7-10 Last administered on 12/09/18 23:16; Admin Dose 2 MG; Start 12/07/18 at 13:00 Polyethylene Glycol (Miralax) 17 gm DAILY PO Last administered on 12/10/18 08:43; Admin Dose 17 GM; Start 12/07/18 at 16:00 Docusate Sodium (Colace) 200 mg BID PO Last administered on 12/10/18 08:42; Admin Dose 200 MG; Start 12/07/18 at 21:00 Lactulose (Enulose) 20 gm DAILY PRN PO CONSTIPATION Last administered on 12/07/18 17:07; Admin Dose 20 GM; Start 12/07/18 at 16:00 Miscellaneous Information (Pending [facility] Order For Wound Care) 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 PRN XX WOUND CARE; Start 12/08/18 at 02:30 Vancomycin HCl 1.25 gm/Sodium Chloride 250 ml @ 83.333 mls/ hr Q8H IVPB Last administered on 12/11/18 05:23; Admin Dose 83.333 MLS/HR; Start 12/08/18 at 22:00 Multivitamins/ Minerals (Theragran-M) 1 tab DAILY PO Last administered on 12/10/18 08:42; Admin Dose 1 TAB; Start 12/09/18 at 09:00 Ascorbic Acid (Vitamin C) 500 mg BID PO Last administered on 12/10/18 22:08; Admin Dose 500 MG; Start 12/09/18 at 09:00 Zinc Sulfate (Zinc Sulfate) 220 mg DAILY PO Last administered on 12/10/18 08:41; Admin Dose 220 MG; Start 12/09/18 at 09:00 Meropenem/Sodium Chloride 50 ml @ 100 mls/hr Q12 IVPB Last administered on 12/10/18at 20:53; Admin Dose 100 MLS/HR; Start 12/10/18 at 12:00 Ibuprofen (Motrin) 400 mg Q6H PRN PO MILD PAIN(1-3) OR TEMP>38C Last administered on 12/10/18at 22:10; Admin Dose 400 MG; Start 12/10/18 at 21:00 Acetaminophen 100 ml @ 400 mls/hr Q6H PRN IVPB ELEVATED TEMPERATURE Last administered on 12/11/18at 06:47; Admin Dose 400 MLS/HR; Start 12/10/18 at 23:30; Stop 12/11/18 at 23:29 Assessment/Plan Hospital Course (Demo Recall) 1. Nonoliguric acute kidney injury. Etiology is secondary to hemodynamics. Renal function is improved. Continue to monitor. 2. Hyponatremia. 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 Continue to monitor sodium levels. improved. 3. Anemia. Continue to monitor and hematocrit levels. 4. Mineral bone disorder. Monitor calcium and phosphorus levels. 5. 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 6. Fasciitis. The patient is status post multiple debridements, status post incision and drainage of perineal and penile region. Continue current antibiotic regimen, dressing changes, follow up with urology. 7. Status post respiratory failure. 8. Encephalopathy, resolving. 9. History of human immunodeficiency virus. Continue to monitor. 10. History of hepatitis. MANASA ALBRECHT DO Dec 11, 2018 07:42
[2018-12-11] MEDS: LAMIVUDINE/ZIDOVUDINE TAB PO SCH ×2 (08:44→20:58)
[2018-12-11] MEDS: MEROPENEM 1 GM/50ML(PMX) 50 ML IVPB SCH (08:44)
[2018-12-11] MEDS: ZINC SULFATE 220 MG CAP PO SCH (08:44)
[2018-12-11] MEDS: EMTRICITABINE/TENOFOVIR TAB PO SCH (08:44)
[2018-12-11] MEDS: FAMOTIDINE 20 MG TAB PO SCH ×2 (08:45→20:58)
[2018-12-11] MEDS: ATROPINE 1% 5 ML OPH LEFT EYE SCH ×2 (08:45→20:58)
[2018-12-11] MEDS: DOCUSATE SODIUM 100 MG CAP PO SCH ×2 (08:45→20:58)
[2018-12-11] MEDS: DAKINS 0.0125%(1/40) 473 ML SOLUTION TP SCH (08:45)
[2018-12-11] MEDS: MULTIVITAMINS/MINERALS TAB PO SCH (08:45)
[2018-12-11] MEDS: PREDNISOLONE ACET 1% 5 ML OPH LEFT EYE SCH (08:45)
[2018-12-11] MEDS: ASCORBIC ACID 500 MG TAB PO SCH ×2 (08:45→20:58)
[2018-12-11] MEDS: POLYETHYLENE GLYCOL 17 GM PACKET PO SCH (08:46)
--- NOTE | 2018-12-11 12:10 | PN ---
DATE: 12/11/2018 SUBJECTIVE: The patient is stable. No events overnight. No fevers, chills, nausea or vomiting. PHYSICAL EXAMINATION: VITALS: Blood pressure is 196/57, pulse rate 99, temperature 101.3. HEENT: Head is normocephalic. NECK: Supple. HEART: Regular rate. LUNGS: Show diminished breath sounds at the base. ABDOMEN: Soft, nontender to palpation without rebound or guarding. EXTREMITIES: Negative for clubbing, cyanosis, no edema. DERMATOLOGIC: No rashes. MUSCULOSKELETAL: No joint effusion. CHEST: Please note the patient's dressing is clean, dry, intact. GENITOURINARY: The patient's dressing clean, dry, intact. EXTREMITIES: No joint effusions. NEUROLOGIC: No change in exam. MEDICATIONS: Reviewed. LABORATORY DATA: Reviewed. IMAGING STUDIES: Have been reviewed. ASSESSMENT AND PLAN: 1. Nonoliguric acute kidney injury. Etiology secondary to hemodynamics. Renal function is improved . Continue to monitor. 2. Hyponatremia. 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 Continue to monitor sodium levels. Minimize free water intake. 3. Anemia. Monitor hemoglobin and hematocrit levels. 4. Mineral bone disorder. Monitor calcium and phosphorus levels. 5. 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 6. Fasciitis. The patient is status post multiple debridements, status post incision and drainage. Continue antibiotic regimen. Continue dressing changes and wound care. 7. Status post respiratory failure. 8. Encephalopathy, resolving. 9. History of human immunodeficiency virus. 10. History of hepatitis. Dictated By: MANASA ANAYA/MESFIN Conf#: [id number] DID#: [id number] CC: PARIS ARROYO MD;*EndCC*
[2018-12-11] MEDS: ACETAMINOPHEN 650MG/20.3ML CUP PO PRN (12:47)
--- NOTE | 2018-12-11 13:09 | CONS ---
Assessment/Plan Assessment/Plan Hospital Course (Demo Recall) No acute events overnight looks comfortable Indwelling: PICC line Microbiology: Wound culture grew MRSA, repeat cx + Kleb, E coli, MRSA Antimicrobials: Vancomycin, Bactrim, Truvada, Combivir, Flagyl Physical examination: Well-developed well-nourished middle-aged man who is alert in no distress. Head atraumatic normocephalic sclera nonicteric neck is supple chest rise symmetrical breath sounds clear heart: S1-S2 abdomen soft bowel sounds present extremities without cyanosis. Skin: Patient has dressing over his left side of the abdomen and bilateral wound vacs to hips Assessment: 1. Resolving sepsis 2. MRSA Fornier's gangrene and necrotizing fasciitis, status post multiple recurrent debridement ==> latest one on 12/08/18 by urology 3. HIV positive, CD4 count 224 4. Status post renal failure Plan: Stable, change Merrem to Cipro dc Flagyl Consultation Date/Type/Reason Admit Date/Time Nov 30, 2018 at 20:47 Initial Consult Date 12/02/18 Type of Consult id Requesting Provider: ROBIN TAVAREZ MD Date/Time of Note DATE: 12/11/18 TIME: 13:08 Exam/Review of Systems Exam Vitals Vital Signs Date Temp Pulse Resp B/P (MAP) Pulse Ox O2 O2 Flow FiO2 Time Delivery Rate 12/11/18 99.9 12:47 12/11/18 94 20 108/59 100 Room Air 12:30 (75) Intake and Output 12/10/18 12/10/18 12/11/18 1515:00 23:00 07:00 IntakeIntake Total 2220 ml 1250 ml 1850 ml OutputOutput Total 1200 ml 300 ml 2100 ml BalanceBalance 1020 ml 950 ml -250 ml Results Result Diagram: 12/10/18 0619 12/11/18 0522 Results 24hrs Laboratory Tests Test 12/10/18 16:15 12/11/18 05:20 12/11/18 05:22 Urine Osmolality 639 Urine Random Sodium 181 H Iron Level 37 Total Iron Binding Capacity 206 L Percent Iron Saturation 18 L Sodium Level 133 L Potassium Level 4.1 Chloride Level 106 Carbon Dioxide Level 20 L Anion Gap 7 Blood Urea Nitrogen 12 Creatinine 0.76 Est Glomerular Filtrat Rate mL/min > 60 Glucose Level 94 Calcium Level 7.3 L Ferritin 1160.0 H Medications Medication Current Medications Ondansetron HCl (Zofran Inj) 4 mg Q6H PRN IV NAUSEA AND/OR VOMITING Last administered on 12/10/18 20:37; Admin Dose 4 MG; Start 11/30/18 at 21:00 Acetaminophen (Tylenol Liquid) 650 mg Q6H PRN PO PAIN LEVEL 1-3 OR FEVER Last administered on 12/11/18 12:47; Admin Dose 650 MG; Start 11/30/18 at 21:00 Vancomycin HCl (Vanco Iv Per Pharmacy) VANCOMYCIN PER PHARMACY PER PROTOCOL XX ; Start 11/30/18 at 21:00 Metronidazole 100 ml @ 100 mls/hr Q8 IVPB Last administered on 12/11/18 05: 22; Admin Dose 100 MLS/HR; Start 12/04/18 at 14:00 Morphine Sulfate (morphine) 2 mg Q2H PRN IV MOD TO SEVERE PAIN Last administered on 12/10/18 11:27; Admin Dose 2 MG; Start 12/04/18 at 11:30 Emtricitabine/ Tenofovir (Truvada) 1 tab DAILY PO Last administered on 12/11/18 08:44; Admin Dose 1 TAB; Start 12/06/18 at 09:00 Lamivudine/ Zidovudine (Combivir) 1 tab BID PO Last administered on 12/11/18 08:44; Admin Dose 1 TAB; Start 12/06/18 at 09:00 Sodium Hypochlorite (Dakins Diluted (40)) 1 applic DAILY TP Last administered on 12/11/18 08:45; Admin Dose 1 APPLIC; Start 12/06/18 at 09:00 Prednisolone Acetate (Pred-Forte 1%) 1 drop DAILY LEFT EYE Last administered on 12/11/18 08:45; Admin Dose 1 DROP; Start 12/05/18 at 19:00 Atropine Sulfate (Atropine 1% Oph) 1 drop BID LEFT EYE Last administered on 12/11/18 08:45; Admin Dose 1 DROP; Start 12/07/18 at 21:00 Guaifenesin (Robitussin Liquid Cup) 100 mg Q4H PRN PO COUGH Last administered on 12/05/18 20:07; Admin Dose 100 MG; Start 12/05/18 at 19:00 Famotidine (Pepcid) 20 mg Q12 PO Last administered on 12/11/18 08:45; Admin Dose 20 MG; Start 12/06/18 at 21:00 Morphine Sulfate (morphine) 2 mg DAILY PRN IV SEVERE PAIN LEVEL 7-10 Last a dministered on 12/09/18 23:16; Admin Dose 2 MG; Start 12/07/18 at 13:00 Polyethylene Glycol (Miralax) 17 gm DAILY PO Last administered on 12/10/18 08:43; Admin Dose 17 GM; Start 12/07/18 at 16:00 Docusate Sodium (Colace) 200 mg BID PO Last administered on 12/11/18 08:45; Admin Dose 200 MG; Start 12/07/18 at 21:00 Lactulose (Enulose) 20 gm DAILY PRN PO CONSTIPATION Last administered on 9at 17:07; Admin Dose 20 GM; Start 12/07/18 at 16:00 Miscellaneous Information (Pending [facility] Order For Wound Care) 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 PRN XX WOUND CARE; Start 12/08/18 at 02:30 Vancomycin HCl 1.25 gm/Sodium Chloride 250 ml @ 83.333 mls/ hr Q8H IVPB Last administered on 12/11/18 05:23; Admin Dose 83.333 MLS/HR; Start 12/08/18 at 22:00 Multivitamins/ Minerals (Theragran-M) 1 tab DAILY PO Last administered on 12/11/18 08:45; Admin Dose 1 TAB; Start 12/09/18 at 09:00 Ascorbic Acid (Vitamin C) 500 mg BID PO Last administered on 12/11/18 08:45; Admin Dose 500 MG; Start 12/09/18 at 09:00 Zinc Sulfate (Zinc Sulfate) 220 mg DAILY PO Last administered on 12/11/18 08:44; Admin Dose 220 MG; Start 12/09/18 at 09:00 Meropenem/Sodium Chloride 50 ml @ 100 mls/hr Q12 IVPB Last administered on 12/11/18 08:44; Admin Dose 100 MLS/HR; Start 12/10/18 at 12:00 Ibuprofen (Motrin) 400 mg Q6H PRN PO MILD PAIN(1-3) OR TEMP>38C Last administered on 7/13/19at 22:10; Admin Dose 400 MG; Start 12/10/18 at 21:00 Acetaminophen 100 ml @ 400 mls/hr Q6H PRN IVPB ELEVATED TEMPERATURE Last administered on 12/11/18at 06:47; Admin Dose 400 MLS/HR; Start 12/10/18 at 23:30; Stop 12/11/18 at 23:29 Miscellaneous Information (*Rx Drug Level Order Reminder*) VANCO TROUGH @ 1,300 1300 ONCE XX ; Start 12/12/18 at 13:00; Stop 12/12/18 at 13:01 CRYSTAL TALAVERA NP Dec 11, 2018 13:09
[2018-12-11] MEDS: morphine 2 MG INJ IV PRN ×3 (13:49→23:42)
[2018-12-11] MEDS: IBUPROFEN 400 MG TAB PO PRN ×2 (16:10→23:44)
--- NOTE | 2018-12-11 16:21 | PN ---
Date/Time of Note Date/Time of Note DATE: 12/11/18 TIME: 16:19 Assessment/Plan VTE Prophylaxis Risk score (from Nsg)>0 risk: 6 SCD applied (from Nsg): Yes Pharmacological prophylaxis: heparin Lines/Catheters IV Catheter Type (from Nrsg): PICC Line Central line still needed: Yes Urinary Cath still in place: Yes Reason Cath still needed: urinary retention Assessment/Plan Hospital Course Appears well no distress RRR CTAB Soft nt nd Wound vac applied to wound of LLQ Buttocks abscess, packed Meade in place 42 yo male with HIV/AIDS who presented with fourniers gangrene and necrotizing fasciitis of abdmoen - s/p I and D procedures per She Damon and Mela who are following. No plan for repeat procedures at this time though may eventually need a skin graft. We had considered transfer to tertiary center for hyperbaric oxygen therapy however it apperas this will not be possible - Wound care, wound vac - Abx per ID HIV/AIDS: - ARVs and ppx per ID Hyponatremia: - Urine studies suggested hypovolemia as etiology. Now improving Anemia: - Adequate iron stores. This is anemia of inflammation Dispo: Will likely need to remain in house for wound care Result Diagram: 12/10/18 0619 12/11/18 0522 Results 24hrs Laboratory Tests Test 12/11/18 05:20 12/11/18 05:22 Iron Level 37 Total Iron Binding Capacity 206 L Percent Iron Saturation 18 L Sodium Level 133 L Potassium Level 4.1 Chloride Level 106 Carbon Dioxide Level 20 L Anion Gap 7 Blood Urea Nitrogen 12 Creatinine 0.76 Est Glomerular Filtrat Rate mL/min > 60 Glucose Level 94 Calcium Level 7.3 L Ferritin 1160.0 H Subjective 24 Hr Interval Summary Free Text/Dictation Continued fevers Denies any complaints Says he feels very well Has told his family about HIV status Exam/Review of Systems Exam Vitals Vital Signs Date Temp Pulse Resp B/P (MAP) Pulse Ox O2 O2 Flow FiO2 Time Delivery Rate 12/11/18 99.7 16:10 12/11/18 87 20 101/50 99 Room Air 15:25 (67) Intake and Output 12/10/18 12/10/18 12/11/18 1515:00 23:00 07:00 IntakeIntake Total 2220 ml 1250 ml 1850 ml OutputOutput Total 1200 ml 300 ml 2100 ml BalanceBalance 1020 ml 950 ml -250 ml Results Results 24hrs Laboratory Tests Test 12/11/18 05:20 12/11/18 05:22 Iron Level 37 Total Iron Binding Capacity 206 L Percent Iron Saturation 18 L Sodium Level 133 L Potassium Level 4.1 Chloride Level 106 Carbon Dioxide Level 20 L Anion Gap 7 Blood Urea Nitrogen 12 Creatinine 0.76 Est Glomerular Filtrat Rate mL/min > 60 Glucose Level 94 Calcium Level 7.3 L Ferritin 1160.0 H Medications Medication Current Medications Ondansetron HCl (Zofran Inj) 4 mg Q6H PRN IV NAUSEA AND/OR VOMITING Last administered on 12/10/18 20:37; Admin Dose 4 MG; Start 11/30/18 at 21:00 Acetaminophen (Tylenol Liquid) 650 mg Q6H PRN PO PAIN LEVEL 1-3 OR FEVER Last administered on 12/11/18 12:47; Admin Dose 650 MG; Start 11/30/18 at 21:00 Vancomycin HCl (Vanco Iv Per Pharmacy) VANCOMYCIN PER PHARMACY PER PROTOCOL XX ; Start 11/30/18 at 21:00 Morphine Sulfate (morphine) 2 mg Q2H PRN IV MOD TO SEVERE PAIN Last administered on 12/11/18 16:09; Admin Dose 2 MG; Start 12/04/18 at 11:30 Emtricitabine/ Tenofovir (Truvada) 1 tab DAILY PO Last administered on 12/11/18 08:44; Admin Dose 1 TAB; Start 12/06/18 at 09:00 Lamivudine/ Zidovudine (Combivir) 1 tab BID PO Last administered on 12/11/18 08:44; Admin Dose 1 TAB; Start 12/06/18 at 09:00 Sodium Hypochlorite (Dakins Diluted (1/40)) 1 applic DAILY TP Last administered on 12/11/18 08:45; Admin Dose 1 APPLIC; Start 12/06/18 at 09:00 Prednisolone Acetate (Pred-Forte 1%) 1 drop DAILY LEFT EYE Last administered on 12/11/18 08:45; Admin Dose 1 DROP; Start 12/05/18 at 19:00 Atropine Sulfate (Atropine 1% Oph) 1 drop BID LEFT EYE Last administered on 08:45; Admin Dose 1 DROP; Start 12/07/18 at 21:00 Guaifenesin (Robitussin Liquid Cup) 100 mg Q4H PRN PO COUGH Last administered on 12/05/18 20:07; Admin Dose 100 MG; Start 12/05/18 at 19:00 Famotidine (Pepcid) 20 mg Q12 PO Last administered on 12/11/18 08:45; Admin Dose 20 MG; Start 12/06/18 at 21:00 Morphine Sulfate (morphine) 2 mg DAILY PRN IV SEVERE PAIN LEVEL 7-10 Last administered on 12/09/18 23:16; Admin Dose 2 MG; Start 12/07/18 at 13:00 Polyethylene Glycol (Miralax) 17 gm DAILY PO Last administered on 12/10/18 08:43; Admin Dose 17 GM; Start 12/07/18 at 16:00 Docusate Sodium (Colace) 200 mg BID PO Last administered on 12/11/18 08:45; Admin Dose 200 MG; Start 12/07/18 at 21:00 Lactulose (Enulose) 20 gm DAILY PRN PO CONSTIPATION Last administered on 12/07/18 17:07; Admin Dose 20 GM; Start 12/07/18 at 16:00 Miscellaneous Information (Pending [facility] Order For Wound Care) 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 PRN XX WOUND CARE; Start 12/08/18 at 02:30 Vancomycin HCl 1.25 gm/Sodium Chloride 250 ml @ 83.333 mls/ hr Q8H IVPB Last administered on 12/11/18 13:36; Admin Dose 83.333 MLS/HR; Start 12/08/18 at 22:00 Multivitamins/ Minerals (Theragran-M) 1 tab DAILY PO Last administered on 12/11/18 08:45; Admin Dose 1 TAB; Start 12/09/18 at 09:00 Ascorbic Acid (Vitamin C) 500 mg BID PO Last administered on 12/11/18 08:45; Admin Dose 500 MG; Start 12/09/18 at 09:00 Zinc Sulfate (Zinc Sulfate) 220 mg DAILY PO Last administered on 12/11/18 08:44; Admin Dose 220 MG; Start 12/09/18 at 09:00 Ibuprofen (Motrin) 400 mg Q6H PRN PO MILD PAIN(1-3) OR TEMP>38C Last administered on 12/11/18at 16:10; Admin Dose 400 MG; Start 12/10/18 at 21:00 Acetaminophen 100 ml @ 400 mls/hr Q6H PRN IVPB ELEVATED TEMPERATURE Last administered on 12/11/18at 06:47; Admin Dose 400 MLS/HR; Start 12/10/18 at 23:30; Stop 12/11/18 at 23:29 Miscellaneous Information (*Rx Drug Level Order Reminder*) VANCO TROUGH @ 1,300 1300 ONCE XX ; Start 12/12/18 at 13:00; Stop 12/12/18 at 13:01 Ciprofloxacin (Cipro) 500 mg BID@06,18 PO ; Start 12/11/18 at 18:00 JIMI SCHAFER MD Dec 11, 2018 16:20
[2018-12-11] MEDS: CIPROFLOXACIN 500 MG TAB PO SCH (17:49)
[2018-12-11] MEDS: ONDANSETRON 4 MG INJ IV PRN (17:52)
--- NOTE | 2018-12-11 20:27 | CONS ---
Consult Date/Type/Reason Admit Date/Time Nov 30, 2018 at 20:47 Initial Consult Date 12/02/18 Type of Consultation: Urology Reason for Consultation Nida gangrene and necrotizing fasciitis Requesting Provider: ROBIN TAVAREZ MD Date/Time of Note DATE: 12/11/18 TIME: 20:24 Subjective Patient is feeling better. He did have a fever of 103 this morning. Objective Vitals Vital Signs Date Temp Pulse Resp B/P (MAP) Pulse Ox O2 O2 Flow FiO2 Time Delivery Rate 12/11/18 98.4 81 20 84/51 (62) 99 20:20 12/11/18 Room Air 15:25 Intake and Output 12/10/18 12/10/18 12/11/18 1515:00 23:00 07:00 IntakeIntake Total 2220 ml 1250 ml 1850 ml OutputOutput Total 1200 ml 300 ml 2100 ml BalanceBalance 1020 ml 950 ml -250 ml Exam Meade catheter was removed and he is voiding well. The nursing staff have changed his packing and wound dressing. Results/Medications Result Diagram: 12/10/18 0619 12/11/18 0522 Results 24 hrs Laboratory Tests Test 12/11/18 05:20 12/11/18 05:22 Iron Level 37 Total Iron Binding Capacity 206 L Percent Iron Saturation 18 L Sodium Level 133 L Potassium Level 4.1 Chloride Level 106 Carbon Dioxide Level 20 L Anion Gap 7 Blood Urea Nitrogen 12 Creatinine 0.76 Est Glomerular Filtrat Rate mL/min > 60 Glucose Level 94 Calcium Level 7.3 L Ferritin 1160.0 H Home Meds Reported Medications Atropine Sulfate/0.9 %Sod Chlr (Atropine 0.01%-Ns Eye Drops) 10 Ml Drops, 1 ML OP BID, #1 12/05/18 Prednisolone Acetate* (Pred Forte*) 5 Ml Susp, 1 DROP LEFT EYE Q1HOUR, EA 12/04/18 Medications Current Medications Ondansetron HCl (Zofran Inj) 4 mg Q6H PRN IV NAUSEA AND/OR VOMITING Last administered on 12/11/18at 17:52; Admin Dose 4 MG; Start 11/30/18 at 21:00 Acetaminophen (Tylenol Liquid) 650 mg Q6H PRN PO PAIN LEVEL 1-3 OR FEVER Last administered on 12/11/18at 12:47; Admin Dose 650 MG; Start 11/30/18 at 21:00 Vancomycin HCl (Vanco Iv Per Pharmacy) VANCOMYCIN PER PHARMACY PER PROTOCOL XX ; Start 11/30/18 at 21:00 Morphine Sulfate (morphine) 2 mg Q2H PRN IV MOD TO SEVERE PAIN Last administered on 12/11/18 16:09; Admin Dose 2 MG; Start 12/04/18 at 11:30 Emtricitabine/ Tenofovir (Truvada) 1 tab DAILY PO Last administered on 12/11/18 08:44; Admin Dose 1 TAB; Start 12/06/18 at 09:00 Lamivudine/ Zidovudine (Combivir) 1 tab BID PO Last administered on 12/11/18 08:44; Admin Dose 1 TAB; Start 12/06/18 at 09:00 Sodium Hypochlorite (Dakins Diluted ()) 1 applic DAILY TP Last administered on 12/11/18 08:45; Admin Dose 1 APPLIC; Start 12/06/18 at 09:00 Prednisolone Acetate (Pred-Forte 1%) 1 drop DAILY LEFT EYE Last administered on 12/11/18 08:45; Admin Dose 1 DROP; Start 12/05/18 at 19:00 Atropine Sulfate (Atropine 1% Oph) 1 drop BID LEFT EYE Last administered on 12/11/18 08:45; Admin Dose 1 DROP; Start 12/07/18 at 21:00 Guaifenesin (Robitussin Liquid Cup) 100 mg Q4H PRN PO COUGH Last administered on 12/05/18 20:07; Admin Dose 100 MG; Start 12/05/18 at 19:00 Famotidine (Pepcid) 20 mg Q12 PO Last administered on 12/11/18 08:45; Admin Dose 20 MG; Start 12/06/18 at 21:00 Morphine Sulfate (morphine) 2 mg DAILY PRN IV SEVERE PAIN LEVEL 7-10 Last administered on 12/09/18 23:16; Admin Dose 2 MG; Start 12/07/18 at 13:00 Polyethylene Glycol (Miralax) 17 gm DAILY PO Last administered on 12/10/18 08:43; Admin Dose 17 GM; Start 12/07/18 at 16:00 Docusate Sodium (Colace) 200 mg BID PO Last administered on 12/11/18 08:45; Admin Dose 200 MG; Start 12/07/18 at 21:00 Lactulose (Enulose) 20 gm DAILY PRN PO CONSTIPATION Last administered on 12/07/18 17:07; Admin Dose 20 GM; Start 12/07/18 at 16:00 Miscellaneous Information (Pending [facility] Order For Wound Care) 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 PRN XX WOUND CARE; Start 12/08/18 at 02:30 Vancomycin HCl 1.25 gm/Sodium Chloride 250 ml @ 83.333 mls/ hr Q8H IVPB Last administered on 12/11/18 13:36; Admin Dose 83.333 MLS/HR; Start 12/08/18 at 22:00 Multivitamins/ Minerals (Theragran-M) 1 tab DAILY PO Last administered on 12/11/18 08:45; Admin Dose 1 TAB; Start 12/09/18 at 09:00 Ascorbic Acid (Vitamin C) 500 mg BID PO Last administered on 12/11/18 08:45; Admin Dose 500 MG; Start 12/09/18 at 09:00 Zinc Sulfate (Zinc Sulfate) 220 mg DAILY PO Last administered on 12/11/18 08:44; Admin Dose 220 MG; Start 12/09/18 at 09:00 Ibuprofen (Motrin) 400 mg Q6H PRN PO MILD PAIN(1-3) OR TEMP>38C Last administered on 12/11/18 16:10; Admin Dose 400 MG; Start 12/10/18 at 21:00 Acetaminophen 100 ml @ 400 mls/hr Q6H PRN IVPB ELEVATED TEMPERATURE Last administered on 12/11/18 06:47; Admin Dose 400 MLS/HR; Start 12/10/18 at 23:30; Stop 12/11/18 at 23:29 Miscellaneous Information (*Rx Drug Level Order Reminder*) VANCO TROUGH @ 1,300 1300 ONCE XX ; Start 12/12/18 at 13:00; Stop 12/12/18 at 13:01 Ciprofloxacin (Cipro) 500 mg BID@06,18 PO Last administered on 12/11/18 17:49; Admin Dose 500 MG; Start 12/11/18 at 18:00 Assessment/Plan Hospital Course (Demo Recall) 42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 He underwent incision and drainage of the abdominal wall all the way up to the lower ribs on the left side and also of the left thigh and right inguinal area and debridement of the scrotum and perineal area. The wounds are getting better. He underwent debridement and incision and drainage of a right buttock abscess. The culture from the buttock grew MRSA. He is doing better. His CBC showed a white count that has come down to normal WBC 8.8 and hemoglobin 8.7.The dressing and the packing of the wounds is changed daily. For now continue the wound care and antibiotic. GWEN BUCK MD Dec 11, 2018 20:26
[2018-12-12 01:30] VITALS: BP 79/40; PULSE 112; RESP 19
[2018-12-12 01:48] VITALS: BP 90/54; PULSE 106
[2018-12-12] MEDS: ACETAMINOPHEN 1000MG/100ML IV 100 ML IVPB PRN (01:58)
[2018-12-12] MEDS ORDERED: SOD CHLORIDE 0.9% 1,000 ML IV ONE (02:00)
[2018-12-12] MEDS: VANCOMYCIN HCL 1.25 GM in SOD CHLORIDE 0.9% 250 ML IVPB SCH ×3 (05:10→22:32)
[2018-12-12] MEDS: CIPROFLOXACIN 500 MG TAB PO SCH ×2 (05:11→18:09)
[2018-12-12 05:21] VITALS: BP 90/54; PULSE 73
[2018-12-12 08:00] VITALS: BP 86/51; PULSE 88; RESP 18
[2018-12-12] MEDS: ASCORBIC ACID 500 MG TAB PO SCH ×2 (08:39→21:39)
[2018-12-12] MEDS: IBUPROFEN 400 MG TAB PO PRN (08:39)
[2018-12-12] MEDS: LAMIVUDINE/ZIDOVUDINE TAB PO SCH ×2 (08:39→21:39)
[2018-12-12] MEDS: FAMOTIDINE 20 MG TAB PO SCH ×2 (08:39→21:39)
[2018-12-12] MEDS: EMTRICITABINE/TENOFOVIR TAB PO SCH (08:39)
[2018-12-12] MEDS: ZINC SULFATE 220 MG CAP PO SCH (08:39)
[2018-12-12] MEDS: ATROPINE 1% 5 ML OPH LEFT EYE SCH ×2 (08:40→21:39)
[2018-12-12] MEDS: PREDNISOLONE ACET 1% 5 ML OPH LEFT EYE SCH (08:40)
[2018-12-12] MEDS: POLYETHYLENE GLYCOL 17 GM PACKET PO SCH (08:40)
[2018-12-12] MEDS: DOCUSATE SODIUM 100 MG CAP PO SCH ×2 (08:40→21:00)
[2018-12-12] MEDS: MULTIVITAMINS/MINERALS TAB PO SCH (08:42)
[2018-12-12] MEDS: DAKINS 0.0125%(1/40) 473 ML SOLUTION TP SCH (09:00)
[2018-12-12] MEDS: morphine 2 MG INJ IV PRN ×3 (09:30→13:04)
--- NOTE | 2018-12-12 11:28 | CONS ---
Assessment/Plan Assessment/Plan Hospital Course (Demo Recall) Tm 103 this am, bld cx sent, cxr neg Indwelling: PICC line Microbiology: Wound culture grew MRSA, repeat cx + Kleb, E coli, MRSA Antimicrobials: Vancomycin, Cipro Truvada, Combivir Physical examination: Well-developed well-nourished middle-aged man who is alert in no distress. Head atraumatic normocephalic sclera nonicteric neck is supple chest rise symmetrical breath sounds clear heart: S1-S2 abdomen soft bowel sounds present extremities without cyanosis. Skin: Patient has dressing over his left side of the abdomen and bilateral wound vacs to hips Assessment: 1. Fever in am 2. Fornier's gangrene and necrotizing fasciitis, status post multiple recurrent debridement ==> latest one on 12/08/18 by urology 3. HIV positive, CD4 count 224 4. Status post renal failure Plan: Clinically stable, continue abx, f/u bld cx's, wound care per surgery and urology, will add Bactrim for PCP prophylaxis Consultation Date/Type/Reason Admit Date/Time Nov 30, 2018 at 20:47 Initial Consult Date 12/02/18 Type of Consult id Requesting Provider: ROBIN TAVAREZ MD Date/Time of Note DATE: 12/12/18 TIME: 11:25 Exam/Review of Systems Exam Vitals Vital Signs Date Temp Pulse Resp B/P (MAP) Pulse Ox O2 O2 Flow FiO2 Time Delivery Rate 12/12/18 98.0 08:39 12/12/18 88 18 86/51 (63) 96 08:00 12/11/18 Room Air 15:25 Intake and Output 12/11/18 12/11/18 12/12/18 1515:00 23:00 07:00 IntakeIntake Total 1330 ml 800 ml 850 ml OutputOutput Total 1350 ml 645 ml 1130 ml BalanceBalance -20 ml 155 ml -280 ml Results Result Diagram: 12/12/18 0548 12/12/18 0548 Results 24hrs Laboratory Tests Test 12/12/18 03:59 12/12/18 05:48 12/12/18 11:05 Urine Color YELLOW Urine Clarity SLIGHTLY CLOUDY A Urine pH 6.0 Urine Specific [place] 1.008 Urine Ketones NEGATIVE Urine Nitrite NEGATIVE Urine Bilirubin NEGATIVE Urine Urobilinogen NEGATIVE Urine Leukocyte Esterase NEGATIVE Urine Microscopic RBC 1 Urine Microscopic WBC 2 Urine Amorphous Crystals FEW A Urine Bacteria FEW A Urine Hemoglobin NEGATIVE Urine Glucose NEGATIVE Urine Total Protein NEGATIVE White Blood Count 3.7 #L Red Blood Count 2.82 L Hemoglobin 7.9 L Hematocrit 23.6 L Mean Corpuscular Volume 83.7 Mean Corpuscular Hemoglobin 28.0 L Mean Corpuscular 33.5 Hemoglobin Concent Red Cell Distribution Width 16.9 H Platelet Count 433 H Mean Platelet Volume 9.7 Immature Granulocytes % 1.600 H Neutrophils % Segmented Neutrophils 73 % (Manual) Band Neutrophils % (Manual) 20 H Lymphocytes % Lymphocytes % (Manual) 4 L Monocytes % Eosinophils % Eosinophils % (Manual) 2 Basophils % Basophils % (Manual) 1 Nucleated Red Blood Cells % 0.0 Immature Granulocytes # 0.060 H Neutrophils # Neutrophils # (Manual) 2.7 Band Neutrophils # 0.7 H Lymphocytes (Manual) 0.1 L Lymphocytes # Monocytes # Eosinophils # Basophils # Basophils # (Manual) 0.0 Nucleated Red Blood Cells # Platelet Estimate INCREASED Giant Platelets 8 H Polychromasia 1+ Anisocytosis 1+ Microcytosis 1+ Macrocytosis 1+ Sodium Level 133 L Potassium Level 3.7 Chloride Level 106 Carbon Dioxide Level 21 Anion Gap 6 Blood Urea Nitrogen 12 Creatinine 0.75 Est Glomerular Filtrat > 60 Rate mL/min Glucose Level 98 Calcium Level 7.1 L Phosphorus Level 3.1 Magnesium Level 1.8 Lab Scanned Report REFERENCE LAB Medications Medication Current Medications Ondansetron HCl (Zofran Inj) 4 mg Q6H PRN IV NAUSEA AND/OR VOMITING Last administered on 12/11/18at 17:52; Admin Dose 4 MG; Start 11/30/18 at 21:00 Acetaminophen (Tylenol Liquid) 650 mg Q6H PRN PO PAIN LEVEL 1-3 OR FEVER Last administered on 12/11/18at 12:47; Admin Dose 650 MG; Start 11/30/18 at 21:00 Vancomycin HCl (Vanco Iv Per Pharmacy) VANCOMYCIN PER PHARMACY PER PROTOCOL XX ; Start 11/30/18 at 21:00 Morphine Sulfate (morphine) 2 mg Q2H PRN IV MOD TO SEVERE PAIN Last administered on 12/12/18at 09:30; Admin Dose 2 MG; Start 12/04/18 at 11:30 Emtricitabine/ Tenofovir (Truvada) 1 tab DAILY PO Last administered on 12/12/18 08:39; Admin Dose 1 TAB; Start 12/06/18 at 09:00 Lamivudine/ Zidovudine (Combivir) 1 tab BID PO Last administered on 12/12/18 08:39; Admin Dose 1 TAB; Start 12/06/18 at 09:00 Sodium Hypochlorite (Dakins Diluted ()) 1 applic DAILY TP Last administered on 12/11/18 08:45; Admin Dose 1 APPLIC; Start 12/06/18 at 09:00 Prednisolone Acetate (Pred-Forte 1%) 1 drop DAILY LEFT EYE Last administered on 12/12/18 08:40; Admin Dose 1 DROP; Start 12/05/18 at 19:00 Atropine Sulfate (Atropine 1% Oph) 1 drop BID LEFT EYE Last administered on 12/12/18 08:40; Admin Dose 1 DROP; Start 12/07/18 at 21:00 Guaifenesin (Robitussin Liquid Cup) 100 mg Q4H PRN PO COUGH Last administered on 12/05/18 20:07; Admin Dose 100 MG; Start 12/05/18 at 19:00 Famotidine (Pepcid) 20 mg Q12 PO Last administered on 12/12/18 08:39; Admin Dose 20 MG; Start 12/06/18 at 21:00 Morphine Sulfate (morphine) 2 mg DAILY PRN IV SEVERE PAIN LEVEL 7-10 Last administered on 12/09/18 23:16; Admin Dose 2 MG; Start 12/07/18 at 13:00 Polyethylene Glycol (Miralax) 17 gm DAILY PO Last administered on 12/10/18 08:43; Admin Dose 17 GM; Start 12/07/18 at 16:00 Docusate Sodium (Colace) 200 mg BID PO Last administered on 12/11/18 08:45; Admin Dose 200 MG; Start 12/07/18 at 21:00 Lactulose (Enulose) 20 gm DAILY PRN PO CONSTIPATION Last administered on 12/07/18 17:07; Admin Dose 20 GM; Start 12/07/18 at 16:00 Miscellaneous Information (Pending [facility] Order For Wound Care) 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 PRN XX WOUND CARE; Start 12/08/18 at 02:30 Vancomycin HCl 1.25 gm/Sodium Chloride 250 ml @ 83.333 mls/ hr Q8H IVPB Last administered on 12/12/18 05:10; Admin Dose 83.333 MLS/HR; Start 12/08/18 at 22:00 Multivitamins/ Minerals (Theragran-M) 1 tab DAILY PO Last administered on 12/12/18 08:42; Admin Dose 1 TAB; Start 12/09/18 at 09:00 Ascorbic Acid (Vitamin C) 500 mg BID PO Last administered on 12/12/18 08:39; Admin Dose 500 MG; Start 12/09/18 at 09:00 Zinc Sulfate (Zinc Sulfate) 220 mg DAILY PO Last administered on 12/12/18 08:39; Admin Dose 220 MG; Start 12/09/18 at 09:00 Ibuprofen (Motrin) 400 mg Q6H PRN PO MILD PAIN(1-3) OR TEMP>38C Last administered on 12/12/18at 08:39; Admin Dose 400 MG; Start 12/10/18 at 21:00 Miscellaneous Information (*Rx Drug Level Order Reminder*) VANCO TROUGH @ 1,300 1300 ONCE XX ; Start 12/12/18 at 13:00; Stop 12/12/18 at 13:01 Ciprofloxacin (Cipro) 500 mg BID@06,18 PO Last administered on 12/12/18at 05:11; Admin Dose 500 MG; Start 12/11/18 at 18:00 Acetaminophen 100 ml @ 400 mls/hr Q6H PRN IVPB ELEVATED TEMPERATURE Last administered on 12/12/18at 01:58; Admin Dose 400 MLS/HR; Start 12/12/18 at 02:00; Stop 12/13/18 at 01:59 CRYSTAL TALAVERA NP Dec 12, 2018 11:28
[2018-12-12] MEDS: TRIMETHOPRIM/SULFAMETHOX (DS) TAB PO SCH (12:42)
[2018-12-12 14:00] VITALS: BP 93/50; PULSE 92; RESP 18
[2018-12-12] MEDS ORDERED: ALTEPLASE (CATHFLO) 2 MG INJ CATHETER PRN ×2 (14:30)
[2018-12-12] MEDS: HYDROCODONE/APAP (5/325) TAB PO PRN ×2 (14:52→21:39)
--- NOTE | 2018-12-12 17:13 | CONS ---
Consult Date/Type/Reason Admit Date/Time Nov 30, 2018 at 20:47 Initial Consult Date 12/02/18 Type of Consultation: Urology Requesting Provider: ROBIN TAVAREZ MD Date/Time of Note DATE: 12/12/18 TIME: 17:11 Subjective Pt has been experiencing fevers and blood pressure has been low. Ibuprofen and IV Tylenol used to manage temperature. 1L of NS given. Pt complained of pain. PRN pain medication given as ordered. Blood cultures and urine specimen collect ed. HEENT: Head is normocephalic. NECK: Supple. HEART: Regular rate. LUNGS: Show diminished breath sounds at the base. ABDOMEN: Soft, nontender to palpation without rebound or guarding. EXTREMITIES: Negative for clubbing, cyanosis, no edema. MUSCULOSKELETAL: The patient's chest exam has dressing over his left chest, clean, dry, intact. GENITOURINARY: The patient's exam has a dressing clean, dry, intact. NEUROLOGIC: No focal deficits. Objective Vitals Vital Signs Date Temp Pulse Resp B/P (MAP) Pulse Ox O2 O2 Flow FiO2 Time Delivery Rate 12/12/18 99.1 92 18 93/50 (64) 98 Room Air 14:00 Intake and Output 12/11/18 12/11/18 12/12/18 1515:00 23:00 07:00 IntakeIntake Total 1330 ml 800 ml 850 ml OutputOutput Total 1350 ml 645 ml 1130 ml BalanceBalance -20 ml 155 ml -280 ml Results/Medications Result Diagram: 12/12/18 0548 12/12/18 0548 Results 24 hrs Laboratory Tests Test 12/12/18 03:59 12/12/18 05:48 12/12/18 11:05 12/12/18 13:13 Urine Color YELLOW Urine Clarity SLIGHTLY CLOUDY A Urine pH 6.0 Urine Specific 1.008 [place] Urine Ketones NEGATIVE Urine Nitrite NEGATIVE Urine Bilirubin NEGATIVE Urine NEGATIVE Urobilinogen Urine Leukocyte NEGATIVE Esterase Urine 1 Microscopic RBC Urine 2 Microscopic WBC Urine Amorphous FEW A Crystals Urine Bacteria FEW A Urine Hemoglobin NEGATIVE Urine Glucose NEGATIVE Urine Total NEGATIVE Protein White Blood 3.7 #L Count Red Blood Count 2.82 L Hemoglobin 7.9 L Hematocrit 23.6 L Mean Corpuscular 83.7 Volume Mean Corpuscular 28.0 L Hemoglobin Mean Corpuscular 33.5 Hemoglobin Yoana nt Red Cell 16.9 H Distribution Width Platelet Count 433 H Mean Platelet 9.7 Volume Immature 1.600 H Granulocytes % Neutrophils % Segmented 73 Neutrophils % (Manual) Band Neutrophils 20 H % (Manual) Lymphocytes % Lymphocytes % 4 L (Manual) Monocytes % Eosinophils % Eosinophils % 2 (Manual) Basophils % Basophils % 1 (Manual) Nucleated Red 0.0 Blood Cells % Immature 0.060 H Granulocytes # Neutrophils # Neutrophils # 2.7 (Manual) Band Neutrophils 0.7 H # Lymphocytes 0.1 L (Manual) Lymphocytes # Monocytes # Eosinophils # Basophils # Basophils # 0.0 (Manual) Nucleated Red Blood Cells # Platelet INCREASED Estimate Giant Platelets 8 H Polychromasia 1+ Anisocytosis 1+ Microcytosis 1+ Macrocytosis 1+ Sodium Level 133 L Potassium Level 3.7 Chloride Level 106 Carbon Dioxide 21 Level Anion Gap 6 Blood Urea 12 Nitrogen Creatinine 0.75 Est Glomerular > 60 Filtrat Rate mL/min Glucose Level 98 Calcium Level 7.1 L Phosphorus Level 3.1 Magnesium Level 1.8 Lab Scanned REFERENCE LAB Report Vancomycin Level 13.6 Trough Home Meds Reported Medications Atropine Sulfate/0.9 %Sod Chlr (Atropine 0.01%-Ns Eye Drops) 10 Ml Drops, 1 ML OP BID, #1 12/05/18 Prednisolone Acetate* (Pred Forte*) 5 Ml Susp, 1 DROP LEFT EYE Q1HOUR, EA 12/04/18 Medications Current Medications Ondansetron HCl (Zofran Inj) 4 mg Q6H PRN IV NAUSEA AND/OR VOMITING Last administered on 12/11/18at 17:52; Admin Dose 4 MG; Start 11/30/18 at 21:00 Acetaminophen (Tylenol Liquid) 650 mg Q6H PRN PO PAIN LEVEL 1-3 OR FEVER Last administered on 12/11/18at 12:47; Admin Dose 650 MG; Start 11/30/18 at 21:00 Vancomycin HCl (Vanco Iv Per Pharmacy) VANCOMYCIN PER PHARMACY PER PROTOCOL XX ; Start 11/30/18 at 21:00 Morphine Sulfate (morphine) 2 mg Q2H PRN IV MOD TO SEVERE PAIN Last administered on 12/12/18at 11:26; Admin Dose 2 MG; Start 12/04/18 at 11:30 Emtricitabine/ Tenofovir (Truvada) 1 tab DAILY PO Last administered on 12/12/18at 08:39; Admin Dose 1 TAB; Start 12/06/18 at 09:00 Lamivudine/ Zidovudine (Combivir) 1 tab BID PO Last administered on 12/12/18 08:39; Admin Dose 1 TAB; Start 12/06/18 at 09:00 Sodium Hypochlorite (Dakins Diluted ()) 1 applic DAILY TP Last administered on 12/11/18 08:45; Admin Dose 1 APPLIC; Start 12/06/18 at 09:00 Prednisolone Acetate (Pred-Forte 1%) 1 drop DAILY LEFT EYE Last administered on 12/12/18 08:40; Admin Dose 1 DROP; Start 12/05/18 at 19:00 Atropine Sulfate (Atropine 1% Oph) 1 drop BID LEFT EYE Last administered on 12/12/18 08:40; Admin Dose 1 DROP; Start 12/07/18 at 21:00 Guaifenesin (Robitussin Liquid Cup) 100 mg Q4H PRN PO COUGH Last administered on 12/05/18 20:07; Admin Dose 100 MG; Start 12/05/18 at 19:00 Famotidine (Pepcid) 20 mg Q12 PO Last administered on 12/12/18 08:39; Admin Dose 20 MG; Start 12/06/18 at 21:00 Morphine Sulfate (morphine) 2 mg DAILY PRN IV SEVERE PAIN LEVEL 7-10 Last administered on 12/12/18 13:04; Admin Dose 2 MG; Start 12/07/18 at 13:00 Polyethylene Glycol (Miralax) 17 gm DAILY PO Last administered on 12/10/18 08:43; Admin Dose 17 GM; Start 12/07/18 at 16:00 Docusate Sodium (Colace) 200 mg BID PO Last administered on 12/11/18 08:45; Admin Dose 200 MG; Start 12/07/18 at 21:00 Lactulose (Enulose) 20 gm DAILY PRN PO CONSTIPATION Last administered on 12/07/18 17:07; Admin Dose 20 GM; Start 12/07/18 at 16:00 Miscellaneous [facility] 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 PRN XX WOUND CARE; Start 12/08/18 at 02:30 Vancomycin HCl 1.25 gm/Sodium Chloride 250 ml @ 83.333 mls/ hr Q8H IVPB Last administered on 12/12/18 14:34; Admin Dose 83.333 MLS/HR; Start 12/08/18 at 22:00 Multivitamins/ Minerals (Theragran-M) 1 tab DAILY PO Last administered on 12/12/18 08:42; Admin Dose 1 TAB; Start 12/09/18 at 09:00 Ascorbic Acid (Vitamin C) 500 mg BID PO Last administered on 12/12/18 08:39; Admin Dose 500 MG; Start 12/09/18 at 09:00 Zinc Sulfate (Zinc Sulfate) 220 mg DAILY PO Last administered on 12/12/18 08:39; Admin Dose 220 MG; Start 12/09/18 at 09:00 Ibuprofen (Motrin) 400 mg Q6H PRN PO MILD PAIN(1-3) OR TEMP>38C Last administered on 12/12/18 08:39; Admin Dose 400 MG; Start 12/10/18 at 21:00 Ciprofloxacin (Cipro) 500 mg BID@06,18 PO Last administered on 12/12/18 05:11; Admin Dose 500 MG; Start 12/11/18 at 18:00 Acetaminophen 100 ml @ 400 mls/hr Q6H PRN IVPB ELEVATED TEMPERATURE Last administered on 12/12/18 01:58; Admin Dose 400 MLS/HR; Start 12/12/18 at 02:00; Stop 12/13/18 at 01:59 Trimethoprim/ Sulfamethoxazole (Bactrim (Ds)) 1 tab DAILY PO Last administered on 12/12/18 12:42; Admin Dose 1 TAB; Start 12/12/18 at 12:00 Alteplase, Recombinant (Cathflo (Activase)) 2 mg MAY REPEAT X1 PRN CATHETER IF CATHETER REMAINS OCCULUDED; Start 12/12/18 at 14:30 Acetaminophen/ Hydrocodone Bitart ([place] (5/325)) 1 tab Q4H PRN PO MODERATE PAIN LEVEL 4-6 Last administered on 12/12/18 14:52; Admin Dose 1 TAB; Start 12/12/18 at 15:00 Assessment/Plan Hospital Course (Demo Recall) 1. Nonoliguric acute kidney injury. Etiology is secondary to hemodynamics. Renal function is improved. Continue to monitor. 2. Hyponatremia. 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 Continue to monitor sodium levels. improved. 3. Anemia. Continue to monitor and hematocrit levels. 4. Mineral bone disorder. Monitor calcium and phosphorus levels. 5. 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 6. Fasciitis. The patient is status post multiple debridements, status post incision and drainage of perineal and penile region. Continue current antibiotic regimen, dressing changes, follow up with urology. 7. Status post respiratory failure. 8. Encephalopathy, resolving. 9. History of human immunodeficiency virus. Continue to monitor. 10. History of hepatitis. 11. hypotension- bp better sp bolus. TRINITY POLO MD Dec 12, 2018 17:13
--- NOTE | 2018-12-12 17:31 | PN ---
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 No plan for repeat procedures at this time though may eventually need a skin graft. We had considered transfer to tertiary center for hyperbaric oxygen therapy however it apperas this will not be possible - Wound care, wound vac - Abx per ID HIV/AIDS: - ARVs and ppx per ID Hyponatremia: - Urine studies suggested hypovolemia as etiology. Now improving Anemia: - Adequate iron stores. This is anemia of inflammation Dispo: Will likely need to remain in house for wound care Result Diagram: 12/12/18 0548 12/12/18 0548 Results 24hrs Laboratory Tests Test 12/12/18 03:59 12/12/18 05:48 12/12/18 11:05 12/12/18 13:13 Urine Color YELLOW Urine Clarity SLIGHTLY CLOUDY A Urine pH 6.0 Urine Specific 1.008 [place] Urine Ketones NEGATIVE Urine Nitrite NEGATIVE Urine Bilirubin NEGATIVE Urine NEGATIVE Urobilinogen Urine Leukocyte NEGATIVE Esterase Urine 1 Microscopic RBC Urine 2 Microscopic WBC Urine Amorphous FEW A Crystals Urine Bacteria FEW A Urine Hemoglobin NEGATIVE Urine Glucose NEGATIVE Urine Total NEGATIVE Protein White Blood 3.7 #L Count Red Blood Count 2.82 L Hemoglobin 7.9 L Hematocrit 23.6 L Mean Corpuscular 83.7 Volume Mean Corpuscular 28.0 L Hemoglobin Mean Corpuscular 33.5 Hemoglobin Yoana nt Red Cell 16.9 H Distribution Width Platelet Count 433 H Mean Platelet 9.7 Volume Immature 1.600 H Granulocytes % Neutrophils % Segmented 73 Neutrophils % (Manual) Band Neutrophils 20 H % (Manual) Lymphocytes % Lymphocytes % 4 L (Manual) Monocytes % Eosinophils % Eosinophils % 2 (Manual) Basophils % Basophils % 1 (Manual) Nucleated Red 0.0 Blood Cells % Immature 0.060 H Granulocytes # Neutrophils # Neutrophils # 2.7 (Manual) Band Neutrophils 0.7 H # Lymphocytes 0.1 L (Manual) Lymphocytes # Monocytes # Eosinophils # Basophils # Basophils # 0.0 (Manual) Nucleated Red Blood Cells # Platelet INCREASED Estimate Giant Platelets 8 H Polychromasia 1+ Anisocytosis 1+ Microcytosis 1+ Macrocytosis 1+ Sodium Level 133 L Potassium Level 3.7 Chloride Level 106 Carbon Dioxide 21 Level Anion Gap 6 Blood Urea 12 Nitrogen Creatinine 0.75 Est Glomerular > 60 Filtrat Rate mL/min Glucose Level 98 Calcium Level 7.1 L Phosphorus Level 3.1 Magnesium Level 1.8 Lab Scanned REFERENCE LAB Report Vancomycin Level 13.6 Trough Subjective 24 Hr Interval Summary Constitutional: no complaints Exam/Review of Systems Exam Vitals Vital Signs Date Temp Pulse Resp B/P (MAP) Pulse Ox O2 O2 Flow FiO2 Time Delivery Rate 12/12/18 99.1 92 18 93/50 (64) 98 Room Air 14:00 Intake and Output 12/11/18 12/11/18 12/12/18 1515:00 23:00 07:00 IntakeIntake Total 1330 ml 800 ml 850 ml OutputOutput Total 1350 ml 645 ml 1130 ml BalanceBalance -20 ml 155 ml -280 ml Constitutional: alert, oriented Respiratory: clear to auscultation Cardiovascular: regular rate and rhythm Gastrointestinal: soft; No distended Musculoskeletal: nl extremities to inspection Results Results 24hrs Laboratory Tests Test 12/12/18 03:59 12/12/18 05:48 12/12/18 11:05 12/12/18 13:13 Urine Color YELLOW Urine Clarity SLIGHTLY CLOUDY A Urine pH 6.0 Urine Specific 1.008 [place] Urine Ketones NEGATIVE Urine Nitrite NEGATIVE Urine Bilirubin NEGATIVE Urine NEGATIVE Urobilinogen Urine Leukocyte NEGATIVE Esterase Urine 1 Microscopic RBC Urine 2 Microscopic WBC Urine Amorphous FEW A Crystals Urine Bacteria FEW A Urine Hemoglobin NEGATIVE Urine Glucose NEGATIVE Urine Total NEGATIVE Protein White Blood 3.7 #L Count Red Blood Count 2.82 L Hemoglobin 7.9 L Hematocrit 23.6 L Mean Corpuscular 83.7 Volume Mean Corpuscular 28.0 L Hemoglobin Mean Corpuscular 33.5 Hemoglobin Yoana nt Red Cell 16.9 H Distribution Width Platelet Count 433 H Mean Platelet 9.7 Volume Immature 1.600 H Granulocytes % Neutrophils % Segmented 73 Neutrophils % (Manual) Band Neutrophils 20 H % (Manual) Lymphocytes % Lymphocytes % 4 L (Manual) Monocytes % Eosinophils % Eosinophils % 2 (Manual) Basophils % Basophils % 1 (Manual) Nucleated Red 0.0 Blood Cells % Immature 0.060 H Granulocytes # Neutrophils # Neutrophils # 2.7 (Manual) Band Neutrophils 0.7 H # Lymphocytes 0.1 L (Manual) Lymphocytes # Monocytes # Eosinophils # Basophils # Basophils # 0.0 (Manual) Nucleated Red Blood Cells # Platelet INCREASED Estimate Giant Platelets 8 H Polychromasia 1+ Anisocytosis 1+ Microcytosis 1+ Macrocytosis 1+ Sodium Level 133 L Potassium Level 3.7 Chloride Level 106 Carbon Dioxide 21 Level Anion Gap 6 Blood Urea 12 Nitrogen Creatinine 0.75 Est Glomerular > 60 Filtrat Rate mL/min Glucose Level 98 Calcium Level 7.1 L Phosphorus Level 3.1 Magnesium Level 1.8 Lab Scanned REFERENCE LAB Report Vancomycin Level 13.6 Trough Medications Medication Current Medications Ondansetron HCl (Zofran Inj) 4 mg Q6H PRN IV NAUSEA AND/OR VOMITING Last administered on 12/11/18 17:52; Admin Dose 4 MG; Start 11/30/18 at 21:00 Acetaminophen (Tylenol Liquid) 650 mg Q6H PRN PO PAIN LEVEL 1-3 OR FEVER Last administered on 12/11/18 12:47; Admin Dose 650 MG; Start 11/30/18 at 21:00 Vancomycin HCl (Vanco Iv Per Pharmacy) VANCOMYCIN PER PHARMACY PER PROTOCOL XX ; Start 11/30/18 at 21:00 Morphine Sulfate (morphine) 2 mg Q2H PRN IV MOD TO SEVERE PAIN Last administered on 12/12/18 11:26; Admin Dose 2 MG; Start 12/04/18 at 11:30 Emtricitabine/ Tenofovir (Truvada) 1 tab DAILY PO Last administered on 12/12/18 08:39; Admin Dose 1 TAB; Start 12/06/18 at 09:00 Lamivudine/ Zidovudine (Combivir) 1 tab BID PO Last administered on 12/12/18 08:39; Admin Dose 1 TAB; Start 12/06/18 at 09:00 Sodium Hypochlorite (Dakins Diluted ()) 1 applic DAILY TP Last administered on 12/11/18 08:45; Admin Dose 1 APPLIC; Start 12/06/18 at 09:00 Prednisolone Acetate (Pred-Forte 1%) 1 drop DAILY LEFT EYE Last administered on 12/12/18 08:40; Admin Dose 1 DROP; Start 12/05/18 at 19:00 Atropine Sulfate (Atropine 1% Oph) 1 drop BID LEFT EYE Last administered on 12/12/18 08:40; Admin Dose 1 DROP; Start 12/07/18 at 21:00 Guaifenesin (Robitussin Liquid Cup) 100 mg Q4H PRN PO COUGH Last administered on 12/05/18 20:07; Admin Dose 100 MG; Start 12/05/18 at 19:00 Famotidine (Pepcid) 20 mg Q12 PO Last administered on 12/12/18 08:39; Admin Dose 20 MG; Start 12/06/18 at 21:00 Morphine Sulfate (morphine) 2 mg DAILY PRN IV SEVERE PAIN LEVEL 7-10 Last administered on 12/12/18 13:04; Admin Dose 2 MG; Start 12/07/18 at 13:00 Polyethylene Glycol (Miralax) 17 gm DAILY PO Last administered on 12/10/18 08:43; Admin Dose 17 GM; Start 12/07/18 at 16:00 Docusate Sodium (Colace) 200 mg BID PO Last administered on 12/11/18 08:45; Admin Dose 200 MG; Start 12/07/18 at 21:00 Lactulose (Enulose) 20 gm DAILY PRN PO CONSTIPATION Last administered on 12/07/18 17:07; Admin Dose 20 GM; Start 12/07/18 at 16:00 Miscellaneous Information (Pending [facility] Order For Wound Care) 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 PRN XX WOUND CARE; Start 12/08/18 at 02:30 Vancomycin HCl 1.25 gm/Sodium Chloride 250 ml @ 83.333 mls/ hr Q8H IVPB Last administered on 12/12/18 14:34; Admin Dose 83.333 MLS/HR; Start 12/08/18 at 22:00 Multivitamins/ Minerals (Theragran-M) 1 tab DAILY PO Last administered on 12/12/18 08:42; Admin Dose 1 TAB; Start 12/09/18 at 09:00 Ascorbic Acid (Vitamin C) 500 mg BID PO Last administered on 12/12/18 08:39; Admin Dose 500 MG; Start 12/09/18 at 09:00 Zinc Sulfate (Zinc Sulfate) 220 mg DAILY PO Last administered on 12/12/18 08:39; Admin Dose 220 MG; Start 12/09/18 at 09:00 Ibuprofen (Motrin) 400 mg Q6H PRN PO MILD PAIN(1-3) OR TEMP>38C Last administered on 12/12/18 08:39; Admin Dose 400 MG; Start 12/10/18 at 21:00 Ciprofloxacin (Cipro) 500 mg BID@06,18 PO Last administered on 12/12/18at 05:11; Admin Dose 500 MG; Start 12/11/18 at 18:00 Acetaminophen 100 ml @ 400 mls/hr Q6H PRN IVPB ELEVATED TEMPERATURE Last administered on 12/12/18 01:58; Admin Dose 400 MLS/HR; Start 12/12/18 at 02:00; Stop 12/13/18 at 01:59 Trimethoprim/ Sulfamethoxazole (Bactrim (Ds)) 1 tab DAILY PO Last administered on 12/12/18at 12:42; Admin Dose 1 TAB; Start 12/12/18 at 12:00 Alteplase, Recombinant (Cathflo (Activase)) 2 mg MAY REPEAT X1 PRN CATHETER IF CATHETER REMAINS OCCULUDED; Start 12/12/18 at 14:30 Acetaminophen/ Hydrocodone Bitart ([place] (5/325)) 1 tab Q4H PRN PO MODERATE PAIN LEVEL 4-6 Last administered on 12/12/18at 14:52; Admin Dose 1 TAB; Start 12/12/18 at 15:00 LAITH MCKEON Dec 12, 2018 17:31
[2018-12-12] MEDS: ACETAMINOPHEN 650MG/20.3ML CUP PO PRN (18:14)
[2018-12-12 20:00] VITALS: BP 82/49; PULSE 100; RESP 17
--- NOTE | 2018-12-12 20:03 | CONS ---
Consult Date/Type/Reason Admit Date/Time Nov 30, 2018 at 20:47 Initial Consult Date 12/02/18 Type of Consultation: Urology Reason for Consultation Nida gangrene and necrotizing fasciitis Requesting Provider: ROBIN TAVAREZ MD Date/Time of Note DATE: 12/12/18 TIME: 20:00 Subjective Patient is feeling better however he continues to have fever Objective Vitals Vital Signs Date Temp Pulse Resp B/P (MAP) Pulse Ox O2 O2 Flow FiO2 Time Delivery Rate 12/12/18 99.8 19:10 12/12/18 92 18 93/50 (64) 98 Room Air 14:00 Intake and Output 12/11/18 12/11/18 12/12/18 1515:00 23:00 07:00 IntakeIntake Total 1330 ml 800 ml 850 ml OutputOutput Total 1350 ml 645 ml 1130 ml BalanceBalance -20 ml 155 ml -280 ml Exam The wound VAC were changed today. The packing of the abdominal and scrotal wound is in place. Results/Medications Result Diagram: 12/12/18 0548 12/12/18 0548 Results 24 hrs Laboratory Tests Test 12/12/18 03:59 12/12/18 05:48 12/12/18 11:05 12/12/18 13:13 Urine Color YELLOW Urine Clarity SLIGHTLY CLOUDY A Urine pH 6.0 Urine Specific 1.008 [place] Urine Ketones NEGATIVE Urine Nitrite NEGATIVE Urine Bilirubin NEGATIVE Urine NEGATIVE Urobilinogen Urine Leukocyte NEGATIVE Esterase Urine 1 Microscopic RBC Urine 2 Microscopic WBC Urine Amorphous FEW A Crystals Urine Bacteria FEW A Urine Hemoglobin NEGATIVE Urine Glucose NEGATIVE Urine Total NEGATIVE Protein White Blood 3.7 #L Count Red Blood Count 2.82 L Hemoglobin 7.9 L Hematocrit 23.6 L Mean Corpuscular 83.7 Volume Mean Corpuscular 28.0 L Hemoglobin Mean Corpuscular 33.5 Hemoglobin Yoana nt Red Cell 16.9 H Distribution Width Platelet Count 433 H Mean Platelet 9.7 Volume Immature 1.600 H Granulocytes % Neutrophils % Segmented 73 Neutrophils % (Manual) Band Neutrophils 20 H % (Manual) Lymphocytes % Lymphocytes % 4 L (Manual) Monocytes % Eosinophils % Eosinophils % 2 (Manual) Basophils % Basophils % 1 (Manual) Nucleated Red 0.0 Blood Cells % Immature 0.060 H Granulocytes # Neutrophils # Neutrophils # 2.7 (Manual) Band Neutrophils 0.7 H # Lymphocytes 0.1 L (Manual) Lymphocytes # Monocytes # Eosinophils # Basophils # Basophils # 0.0 (Manual) Nucleated Red Blood Cells # Platelet INCREASED Estimate Giant Platelets 8 H Polychromasia 1+ Anisocytosis 1+ Microcytosis 1+ Macrocytosis 1+ Sodium Level 133 L Potassium Level 3.7 Chloride Level 106 Carbon Dioxide 21 Level Anion Gap 6 Blood Urea 12 Nitrogen Creatinine 0.75 Est Glomerular > 60 Filtrat Rate mL/min Glucose Level 98 Calcium Level 7.1 L Phosphorus Level 3.1 Magnesium Level 1.8 Lab Scanned REFERENCE LAB Report Vancomycin Level 13.6 Trough Home Meds Reported Medications Atropine Sulfate/0.9 %Sod Chlr (Atropine 0.01%-Ns Eye Drops) 10 Ml Drops, 1 ML OP BID, #1 12/05/18 Prednisolone Acetate* (Pred Forte*) 5 Ml Susp, 1 DROP LEFT EYE Q1HOUR, EA 12/04/18 Medications Current Medications Ondansetron HCl (Zofran Inj) 4 mg Q6H PRN IV NAUSEA AND/OR VOMITING Last administered on 12/11/18at 17:52; Admin Dose 4 MG; Start 11/30/18 at 21:00 Acetaminophen (Tylenol Liquid) 650 mg Q6H PRN PO PAIN LEVEL 1-3 OR FEVER Last administered on 12/12/18 18:14; Admin Dose 650 MG; Start 11/30/18 at 21:00 Vancomycin HCl (Vanco Iv Per Pharmacy) VANCOMYCIN PER PHARMACY PER PROTOCOL XX ; Start 11/30/18 at 21:00 Morphine Sulfate (morphine) 2 mg Q2H PRN IV MOD TO SEVERE PAIN Last administered on 12/12/18at 11:26; Admin Dose 2 MG; Start 12/04/18 at 11:30 Emtricitabine/ Tenofovir (Truvada) 1 tab DAILY PO Last administered on 12/12/18 08:39; Admin Dose 1 TAB; Start 12/06/18 at 09:00 Lamivudine/ Zidovudine (Combivir) 1 tab BID PO Last administered on 12/12/18 08:39; Admin Dose 1 TAB; Start 12/06/18 at 09:00 Sodium Hypochlorite (Dakins Diluted ()) 1 applic DAILY TP Last administered on 12/11/18 08:45; Admin Dose 1 APPLIC; Start 12/06/18 at 09:00 Prednisolone Acetate (Pred-Forte 1%) 1 drop DAILY LEFT EYE Last administered on 12/12/18 08:40; Admin Dose 1 DROP; Start 12/05/18 at 19:00 Atropine Sulfate (Atropine 1% Oph) 1 drop BID LEFT EYE Last administered on 12/12/18 08:40; Admin Dose 1 DROP; Start 12/07/18 at 21:00 Guaifenesin (Robitussin Liquid Cup) 100 mg Q4H PRN PO COUGH Last administered on 12/05/18 20:07; Admin Dose 100 MG; Start 12/05/18 at 19:00 Famotidine (Pepcid) 20 mg Q12 PO Last administered on 12/12/18 08:39; Admin Dose 20 MG; Start 12/06/18 at 21:00 Morphine Sulfate (morphine) 2 mg DAILY PRN IV SEVERE PAIN LEVEL 7-10 Last administered on 12/12/18 13:04; Admin Dose 2 MG; Start 12/07/18 at 13:00 Polyethylene Glycol (Miralax) 17 gm DAILY PO Last administered on 12/10/18 08:43; Admin Dose 17 GM; Start 12/07/18 at 16:00 Docusate Sodium (Colace) 200 mg BID PO Last administered on 12/11/18 08:45; Admin Dose 200 MG; Start 12/07/18 at 21:00 Lactulose (Enulose) 20 gm DAILY PRN PO CONSTIPATION Last administered on 12/07/18 17:07; Admin Dose 20 GM; Start 12/07/18 at 16:00 Miscellaneous Information (Pending [facility] Order For Wound Care) 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 PRN XX WOUND CARE; Start 12/08/18 at 02:30 Vancomycin HCl 1.25 gm/Sodium Chloride 250 ml @ 83.333 mls/ hr Q8H IVPB Last administered on 12/12/18 14:34; Admin Dose 83.333 MLS/HR; Start 12/08/18 at 22:00 Multivitamins/ Minerals (Theragran-M) 1 tab DAILY PO Last administered on 12/12/18 08:42; Admin Dose 1 TAB; Start 12/09/18 at 09:00 Ascorbic Acid (Vitamin C) 500 mg BID PO Last administered on 12/12/18 08:39; Admin Dose 500 MG; Start 12/09/18 at 09:00 Zinc Sulfate (Zinc Sulfate) 220 mg DAILY PO Last administered on 12/12/18 08:39; Admin Dose 220 MG; Start 12/09/18 at 09:00 Ibuprofen (Motrin) 400 mg Q6H PRN PO MILD PAIN(1-3) OR TEMP>38C Last administered on 12/12/18 08:39; Admin Dose 400 MG; Start 12/10/18 at 21:00 Ciprofloxacin (Cipro) 500 mg BID@06,18 PO Last administered on 12/12/18 18:09; Admin Dose 500 MG; Start 12/11/18 at 18:00 Acetaminophen 100 ml @ 400 mls/hr Q6H PRN IVPB ELEVATED TEMPERATURE Last administered on 12/12/18 01:58; Admin Dose 400 MLS/HR; Start 12/12/18 at 02:00; Stop 12/13/18 at 01:59 Trimethoprim/ Sulfamethoxazole (Bactrim (Ds)) 1 tab DAILY PO Last administered on 12/12/18 12:42; Admin Dose 1 TAB; Start 12/12/18 at 12:00 Alteplase, Recombinant (Cathflo (Activase)) 2 mg MAY REPEAT X1 PRN CATHETER IF CATHETER REMAINS OCCULUDED Last administered on 12/12/18 18:04; Admin Dose 2 MG; Start 12/12/18 at 14:30 Acetaminophen/ Hydrocodone Bitart ([place] (5/325)) 1 tab Q4H PRN PO MODERATE PAIN LEVEL 4-6 Last administered on 12/12/18 14:52; Admin Dose 1 TAB; Start 12/12/18 at 15:00 Assessment/Plan Hospital Course (Demo Recall) 42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 He underwent incision and drainage of the abdominal wall all the way up to the lower ribs on the left side and also of the left thigh and right inguinal area and debridement of the scrotum and perineal area. The wounds are getting better. He underwent debridement and incision and drainage of a right buttock abscess. The culture from the buttock grew MRSA. He is doing better. His CBC showed a white count that has come down to 3.7 and hemoglobin 7.9 The dressing and the packing of the wounds is changed daily. For now continue the wound care and antibiotic. GWEN BUCK MD Dec 12, 2018 20:03
[2018-12-13] MEDS: DAKINS 0.0125%(1/40) 473 ML SOLUTION TP SCH ×2 (00:57→08:36)
[2018-12-13 01:10] VITALS: BP 117/62; PULSE 115; RESP 19
[2018-12-13] MEDS: ACETAMINOPHEN 1000MG/100ML IV 100 ML IVPB PRN (01:27)
[2018-12-13] MEDS: VANCOMYCIN HCL 1.25 GM in SOD CHLORIDE 0.9% 250 ML IVPB SCH ×3 (06:25→21:36)
[2018-12-13] MEDS: CIPROFLOXACIN 500 MG TAB PO SCH (06:26)
[2018-12-13] MEDS: ACETAMINOPHEN 650MG/20.3ML CUP PO PRN ×2 (06:28→14:24)
[2018-12-13 07:34] VITALS: BP 91/52; PULSE 100; RESP 18
[2018-12-13] MEDS: POLYETHYLENE GLYCOL 17 GM PACKET PO SCH (08:34)
[2018-12-13] MEDS: DOCUSATE SODIUM 100 MG CAP PO SCH ×2 (08:35→21:00)
[2018-12-13] MEDS: FAMOTIDINE 20 MG TAB PO SCH ×2 (08:35→21:35)
[2018-12-13] MEDS: ATROPINE 1% 5 ML OPH LEFT EYE SCH ×2 (08:35→21:35)
[2018-12-13] MEDS: PREDNISOLONE ACET 1% 5 ML OPH LEFT EYE SCH (08:35)
[2018-12-13] MEDS: EMTRICITABINE/TENOFOVIR TAB PO SCH (08:35)
[2018-12-13] MEDS: LAMIVUDINE/ZIDOVUDINE TAB PO SCH ×2 (08:35→21:35)
[2018-12-13] MEDS: ASCORBIC ACID 500 MG TAB PO SCH ×2 (08:35→21:35)
[2018-12-13] MEDS: TRIMETHOPRIM/SULFAMETHOX (DS) TAB PO SCH (08:35)
[2018-12-13] MEDS: MULTIVITAMINS/MINERALS TAB PO SCH (08:35)
[2018-12-13] MEDS: ZINC SULFATE 220 MG CAP PO SCH (08:35)
[2018-12-13] MEDS: HYDROCODONE/APAP (5/325) TAB PO PRN ×4 (09:12→22:09)
--- NOTE | 2018-12-13 10:44 | CONS ---
Consult Date/Type/Reason Admit Date/Time Nov 30, 2018 at 20:47 Initial Consult Date 12/02/18 Type of Consultation: neph Requesting Provider: ROBIN TAVAREZ MD Date/Time of Note DATE: 12/13/18 TIME: 10:39 Subjective Pt has been experiencing fevers and blood pressure has been low. POD # 4 I&D scrotum / penile, perianal site, on contact isolation for mrsa of scrotum. wound vac HEENT: Head is normocephalic. NECK: Supple. HEART: Regular rate. LUNGS: Show diminished breath sounds at the base. ABDOMEN: Soft, nontender to palpation without rebound or guarding. EXTREMITIES: Negative for clubbing, cyanosis, no edema. MUSCULOSKELETAL: The patient's chest exam has dressing over his left chest, clean, dry, intact. GENITOURINARY: The patient's exam has a dressing clean, dry, intact. NEUROLOGIC: No focal deficits. Objective Vitals Vital Signs Date Temp Pulse Resp B/P (MAP) Pulse Ox O2 O2 Flow FiO2 Time Delivery Rate 12/13/18 99.4 07:34 12/13/18 100 18 91/52 (65) 97 07:34 12/12/18 Room Air 14:00 Intake and Output 12/12/18 12/12/18 12/13/18 1515:00 23:00 07:00 IntakeIntake Total 550 ml 2050 ml 1550 ml OutputOutput Total 800 ml 610 ml 1000 ml BalanceBalance -250 ml 1440 ml 550 ml Results/Medications Result Diagram: 12/12/18 0548 12/12/18 0548 Results 24 hrs Laboratory Tests Test 12/12/18 11:05 12/12/18 13:13 12/13/18 08:31 Lab Scanned Report REFERENCE LAB REFERENCE LAB Vancomycin Level Trough 13.6 Home Meds Reported Medications Atropine Sulfate/0.9 %Sod Chlr (Atropine 0.01%-Ns Eye Drops) 10 Ml Drops, 1 ML OP BID, #1 12/05/18 Prednisolone Acetate* (Pred Forte*) 5 Ml Susp, 1 DROP LEFT EYE Q1HOUR, EA 12/04/18 Medications Current Medications Ondansetron HCl (Zofran Inj) 4 mg Q6H PRN IV NAUSEA AND/OR VOMITING Last administered on 12/11/18at 17:52; Admin Dose 4 MG; Start 11/30/18 at 21:00 Acetaminophen (Tylenol Liquid) 650 mg Q6H PRN PO PAIN LEVEL 1-3 OR FEVER Last administered on 12/13/18 06:28; Admin Dose 650 MG; Start 11/30/18 at 21:00 Vancomycin HCl (Vanco Iv Per Pharmacy) VANCOMYCIN PER PHARMACY PER PROTOCOL XX ; Start 11/30/18 at 21:00 Morphine Sulfate (morphine) 2 mg Q2H PRN IV MOD TO SEVERE PAIN Last administered on 12/12/18 11:26; Admin Dose 2 MG; Start 12/04/18 at 11:30 Emtricitabine/ Tenofovir (Truvada) 1 tab DAILY PO Last administered on 12/13/18 08:35; Admin Dose 1 TAB; Start 12/06/18 at 09:00 Lamivudine/ Zidovudine (Combivir) 1 tab BID PO Last administered on 12/13/18 08:35; Admin Dose 1 TAB; Start 12/06/18 at 09:00 Sodium Hypochlorite (Dakins Diluted ()) 1 applic DAILY TP Last administered on 12/13/18 08:36; Admin Dose 1 APPLIC; Start 12/06/18 at 09:00 Prednisolone Acetate (Pred-Forte 1%) 1 drop DAILY LEFT EYE Last administered on 12/13/18 08:35; Admin Dose 1 DROP; Start 12/05/18 at 19:00 Atropine Sulfate (Atropine 1% Oph) 1 drop BID LEFT EYE Last administered on 12/13/18 08:35; Admin Dose 1 DROP; Start 12/07/18 at 21:00 Guaifenesin (Robitussin Liquid Cup) 100 mg Q4H PRN PO COUGH Last administered on 12/05/18 20:07; Admin Dose 100 MG; Start 12/05/18 at 19:00 Famotidine (Pepcid) 20 mg Q12 PO Last administered on 12/13/18 08:35; Admin Dose 20 MG; Start 12/06/18 at 21:00 Morphine Sulfate (morphine) 2 mg DAILY PRN IV SEVERE PAIN LEVEL 7-10 Last administered on 12/12/18 13:04; Admin Dose 2 MG; Start 12/07/18 at 13:00 Polyethylene Glycol (Miralax) 17 gm DAILY PO Last administered on 12/13/18 08:34; Admin Dose 17 GM; Start 12/07/18 at 16:00 Docusate Sodium (Colace) 200 mg BID PO Last administered on 12/13/18 08:35; Admin Dose 200 MG; Start 12/07/18 at 21:00 Lactulose (Enulose) 20 gm DAILY PRN PO CONSTIPATION Last administered on 12/07/18 17:07; Admin Dose 20 GM; Start 12/07/18 at 16:00 Miscellaneous Information (Pending Santyl Order For Wound Care) 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 PRN XX WOUND CARE; Start 12/08/18 at 02:30 Vancomycin HCl 1.25 gm/Sodium Chloride 250 ml @ 83.333 mls/ hr Q8H IVPB Last administered on 12/13/18 06:25; Admin Dose 83.333 MLS/HR; Start 12/08/18 at 22:00 Multivitamins/ Minerals (Theragran-M) 1 tab DAILY PO Last administered on 12/13/18 08:35; Admin Dose 1 TAB; Start 12/09/18 at 09:00 Ascorbic Acid (Vitamin C) 500 mg BID PO Last administered on 12/13/18 08:35; Admin Dose 500 MG; Start 12/09/18 at 09:00 Zinc Sulfate (Zinc Sulfate) 220 mg DAILY PO Last administered on 12/13/18 08:35; Admin Dose 220 MG; Start 12/09/18 at 09:00 Ibuprofen (Motrin) 400 mg Q6H PRN PO MILD PAIN(1-3) OR TEMP>38C Last administered on 12/12/18 08:39; Admin Dose 400 MG; Start 12/10/18 at 21:00 Ciprofloxacin (Cipro) 500 mg BID@06,18 PO Last administered on 12/13/18 06:26; Admin Dose 500 MG; Start 12/11/18 at 18:00 Trimethoprim/ Sulfamethoxazole (Bactrim (Ds)) 1 tab DAILY PO Last administered on 12/13/18 08:35; Admin Dose 1 TAB; Start 12/12/18 at 12:00 Alteplase, Recombinant (Cathflo (Activase)) 2 mg MAY REPEAT X1 PRN CATHETER IF CATHETER REMAINS OCCULUDED Last administered on 7/15/19at 18:04; Admin Dose 2 MG; Start 12/12/18 at 14:30 Acetaminophen/ Hydrocodone Bitart ([place] (5/325)) 1 tab Q4H PRN PO MODERATE PAIN LEVEL 4-6 Last administered on 12/13/18at 09:12; Admin Dose 1 TAB; Start 12/12/18 at 15:00 Assessment/Plan Hospital Course (Demo Recall) 1. Nonoliguric acute kidney injury. Etiology is secondary to hemodynamics. Renal function is improved. Continue to monitor. 2. Hyponatremia. 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 Continue to monitor sodium levels. improved. 3. Anemia/ leucopenia. Continue to monitor and hematocrit levels. 4. Fevers- persisiten. 5. 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 6. Fasciitis. The patient is status post multiple debridements, status post incision and drainage of perineal and penile region. Continue current antibiotic regimen, dressing changes, follow up with urology. 7. Status post respiratory failure. 8. Encephalopathy, resolved 9. History of human immunodeficiency virus. Continue to monitor. 10. History of hepatitis. 11. hypotension- bp better sp bolus. generally low. consider adrenal insufficiency. TRINITY POLO MD Dec 13, 2018 10:44
[2018-12-13] MEDS: morphine 2 MG INJ IV PRN ×2 (11:58→20:10)
[2018-12-13] MEDS: FLUCONAZOLE 100 MG TAB PO SCH (12:18)
[2018-12-13 14:00] VITALS: BP 123/70; PULSE 108; RESP 18
--- NOTE | 2018-12-13 14:44 | CONS ---
Assessment/Plan Assessment/Plan Hospital Course (Demo Recall) Continues to spike fevers, alert, looks comfortable, no n/v/d/dysuria, no SOB Indwelling: PICC line Microbiology: Wound culture grew MRSA, repeat cx + Kleb, E coli, MRSA Antimicrobials: Vancomycin, Cipro Truvada, Combivir, Diflucan, Bactrim Physical examination: Well-developed well-nourished middle-aged man who is alert in no distress. Head atraumatic normocephalic sclera nonicteric neck is supple chest rise symmetrical breath sounds clear heart: S1-S2 abdomen soft bowel sounds present extremities without cyanosis. Skin: Patient has dressing over his left side of the abdomen and bilateral wound vacs to hips Assessment: 1. Ongoing fevers 2. Fornier's gangrene and necrotizing fasciitis, status post multiple recurrent debridement ==> latest one on 12/08/18 by urology 3. AIDS 4. Status post renal failure Plan: Clinically stable, will change Cipro to Merrem, add prophylactic Zithromax, consider dc PICC and send tip for cx, continue wound care per surgery and urology, repeat cxr in am Consultation Date/Type/Reason Admit Date/Time Nov 30, 2018 at 20:47 Initial Consult Date 12/02/18 Type of Consult id Requesting Provider: ROBIN TAVAREZ MD Date/Time of Note DATE: 12/13/18 TIME: 14:43 Exam/Review of Systems Exam Vitals Vital Signs Date Temp Pulse Resp B/P (MAP) Pulse Ox O2 O2 Flow FiO2 Time Delivery Rate 12/13/18 100.9 14:24 12/13/18 108 18 123/70 97 Room Air 14:00 (87) 108 Intake and Output 12/12/18 12/12/18 12/13/18 1515:00 23:00 07:00 IntakeIntake Total 550 ml 2050 ml 1550 ml OutputOutput Total 800 ml 610 ml 1000 ml BalanceBalance -250 ml 1440 ml 550 ml Results Result Diagram: 12/12/18 0548 12/12/18 0548 Results 24hrs Laboratory Tests Test 12/13/18 08:31 Lab Scanned Report REFERENCE LAB Medications Medication Current Medications Ondansetron HCl (Zofran Inj) 4 mg Q6H PRN IV NAUSEA AND/OR VOMITING Last administered on 12/11/18 17:52; Admin Dose 4 MG; Start 11/30/18 at 21:00 Acetaminophen (Tylenol Liquid) 650 mg Q6H PRN PO PAIN LEVEL 1-3 OR FEVER Last administered on 12/13/18 14:24; Admin Dose 650 MG; Start 11/30/18 at 21:00 Vancomycin HCl (Vanco Iv Per Pharmacy) VANCOMYCIN PER PHARMACY PER PROTOCOL XX ; Start 11/30/18 at 21:00 Morphine Sulfate (morphine) 2 mg Q2H PRN IV MOD TO SEVERE PAIN Last administered on 12/13/18 11:58; Admin Dose 2 MG; Start 12/04/18 at 11:30 Emtricitabine/ Tenofovir (Truvada) 1 tab DAILY PO Last administered on 12/13/18 08:35; Admin Dose 1 TAB; Start 12/06/18 at 09:00 Lamivudine/ Zidovudine (Combivir) 1 tab BID PO Last administered on 12/13/18 08:35; Admin Dose 1 TAB; Start 12/06/18 at 09:00 Sodium Hypochlorite (Dakins Diluted (1/40)) 1 applic DAILY TP Last administered on 12/13/18 08:36; Admin Dose 1 APPLIC; Start 12/06/18 at 09:00 Prednisolone Acetate (Pred-Forte 1%) 1 drop DAILY LEFT EYE Last administered on 12/13/18 08:35; Admin Dose 1 DROP; Start 12/05/18 at 19:00 Atropine Sulfate (Atropine 1% Oph) 1 drop BID LEFT EYE Last administered on 12/13/18 08:35; Admin Dose 1 DROP; Start 12/07/18 at 21:00 Guaifenesin (Robitussin Liquid Cup) 100 mg Q4H PRN PO COUGH Last administered on 12/05/18 20:07; Admin Dose 100 MG; Start 12/05/18 at 19:00 Famotidine (Pepcid) 20 mg Q12 PO Last administered on 12/13/18 08:35; Admin Dose 20 MG; Start 12/06/18 at 21:00 Morphine Sulfate (morphine) 2 mg DAILY PRN IV SEVERE PAIN LEVEL 7-10 Last administered on 12/12/18 13:04; Admin Dose 2 MG; Start 12/07/18 at 13:00 Polyethylene Glycol (Miralax) 17 gm DAILY PO Last administered on 12/13/18 08:34; Admin Dose 17 GM; Start 12/07/18 at 16:00 Docusate Sodium (Colace) 200 mg BID PO Last administered on 12/13/18 08:35; Admin Dose 200 MG; Start 12/07/18 at 21:00 Lactulose (Enulose) 20 gm DAILY PRN PO CONSTIPATION Last administered on 12/07/18 17:07; Admin Dose 20 GM; Start 12/07/18 at 16:00 [facility] 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 PRN XX WOUND CARE; Start 12/08/18 at 02:30 Vancomycin HCl 1.25 gm/Sodium Chloride 250 ml @ 83.333 mls/ hr Q8H IVPB Last administered on 12/13/18 13:49; Admin Dose 83.333 MLS/HR; Start 12/08/18 at 22:00 Multivitamins/ Minerals (Theragran-M) 1 tab DAILY PO Last administered on 12/13/18 08:35; Admin Dose 1 TAB; Start 12/09/18 at 09:00 Ascorbic Acid (Vitamin C) 500 mg BID PO Last administered on 12/13/18 08:35; Admin Dose 500 MG; Start 12/09/18 at 09:00 Zinc Sulfate (Zinc Sulfate) 220 mg DAILY PO Last administered on 12/13/18 08:35; Admin Dose 220 MG; Start 12/09/18 at 09:00 Ibuprofen (Motrin) 400 mg Q6H PRN PO MILD PAIN(1-3) OR TEMP>38C Last administ ered on 12/12/18 08:39; Admin Dose 400 MG; Start 12/10/18 at 21:00 Ciprofloxacin (Cipro) 500 mg BID@06,18 PO Last administered on 12/13/18 06:26; Admin Dose 500 MG; Start 12/11/18 at 18:00 Trimethoprim/ Sulfamethoxazole (Bactrim (Ds)) 1 tab DAILY PO Last administered on 12/13/18 08:35; Admin Dose 1 TAB; Start 12/12/18 at 12:00 Alteplase, Recombinant (Cathflo (Activase)) 2 mg MAY REPEAT X1 PRN CATHETER IF CATHETER REMAINS OCCULUDED Last administered on 12/12/18 18:04; Admin Dose 2 MG; Start 12/12/18 at 14:30 Acetaminophen/ Hydrocodone Bitart ([place] (5/325)) 1 tab Q4H PRN PO MODERATE PAIN LEVEL 4-6 Last administered on 12/13/18 13:49; Admin Dose 1 TAB; Start 12/12/18 at 15:00 Fluconazole (Diflucan) 100 mg DAILY PO Last administered on 12/13/18at 12:18; Admin Dose 100 MG; Start 12/13/18 at 11:30 CRYSTAL TALAVERA NP Dec 13, 2018 14:44
[2018-12-13] MEDS ORDERED: MEROPENEM 1 GM/50ML(PMX) 50 ML IVPB SCH (15:00)
--- NOTE | 2018-12-13 16:01 | PN ---
Date/Time of Note Date/Time of Note DATE: 12/13/18 TIME: 16:00 Assessment/Plan VTE Prophylaxis Risk score (from Nsg)>0 risk: 4 SCD applied (from Nsg): Yes Pharmacological prophylaxis: NA/contraindicated Pharm contraindication: low risk/ambulating Lines/Catheters IV Catheter Type (from Nrsg): Peripheral IV Assessment/Plan Hospital Course 42 yo male with HIV/AIDS who presented with fourniers gangrene and necrotizing fasciitis of abdmoen - s/p I and D procedures per She Damon and Mela who are following. No plan for repeat procedures at this time though may eventually need a skin graft. We had considered transfer to tertiary center for hyperbaric oxygen therapy however it apperas this will not be possible - Wound care, wound vac - Abx per ID HIV/AIDS: - ARVs and ppx per ID Hyponatremia: - Urine studies suggested hypovolemia as etiology. Now improving Anemia: - Adequate iron stores. This is anemia of inflammation Dispo: Will likely need to remain in house for wound care Result Diagram: 12/12/18 0548 12/12/18 0548 Results 24hrs Laboratory Tests Test 12/13/18 08:31 Lab Scanned Report REFERENCE LAB Subjective 24 Hr Interval Summary Constitutional: no complaints Exam/Review of Systems Exam Vitals Vital Signs Date Temp Pulse Resp B/P (MAP) Pulse Ox O2 O2 Flow FiO2 Time Delivery Rate 12/13/18 100.1 15:09 12/13/18 108 18 123/70 97 Room Air 14:00 (87) 108 Intake and Output 12/12/18 12/12/18 12/13/18 1515:00 23:00 07:00 IntakeIntake Total 550 ml 2050 ml 1550 ml OutputOutput Total 800 ml 610 ml 1000 ml BalanceBalance -250 ml 1440 ml 550 ml Constitutional: alert Respiratory: clear to auscultation Cardiovascular: regular rate and rhythm Gastrointestinal: soft; No distended Musculoskeletal: nl extremities to inspection Results Results 24hrs Laboratory Tests Test 12/13/18 08:31 Lab Scanned Report REFERENCE LAB Medications Medication Current Medications Ondansetron HCl (Zofran Inj) 4 mg Q6H PRN IV NAUSEA AND/OR VOMITING Last administered on 12/11/18at 17:52; Admin Dose 4 MG; Start 11/30/18 at 21:00 Acetaminophen (Tylenol Liquid) 650 mg Q6H PRN PO PAIN LEVEL 1-3 OR FEVER Last administered on 12/13/18 14:24; Admin Dose 650 MG; Start 11/30/18 at 21:00 Vancomycin HCl (Vanco Iv Per Pharmacy) VANCOMYCIN PER PHARMACY PER PROTOCOL XX ; Start 11/30/18 at 21:00 Morphine Sulfate (morphine) 2 mg Q2H PRN IV MOD TO SEVERE PAIN Last administered on 12/13/18 11:58; Admin Dose 2 MG; Start 12/04/18 at 11:30 Emtricitabine/ Tenofovir (Truvada) 1 tab DAILY PO Last administered on 12/13/18 08:35; Admin Dose 1 TAB; Start 12/06/18 at 09:00 Lamivudine/ Zidovudine (Combivir) 1 tab BID PO Last administered on 12/13/18 08:35; Admin Dose 1 TAB; Start 12/06/18 at 09:00 Sodium Hypochlorite (Dakins Diluted ()) 1 applic DAILY TP Last administered on 12/13/18 08:36; Admin Dose 1 APPLIC; Start 12/06/18 at 09:00 Prednisolone Acetate (Pred-Forte 1%) 1 drop DAILY LEFT EYE Last administered on 12/13/18 08:35; Admin Dose 1 DROP; Start 12/05/18 at 19:00 Atropine Sulfate (Atropine 1% Oph) 1 drop BID LEFT EYE Last administered on 12/13/18 08:35; Admin Dose 1 DROP; Start 12/07/18 at 21:00 Guaifenesin (Robitussin Liquid Cup) 100 mg Q4H PRN PO COUGH Last administered on 12/05/18 20:07; Admin Dose 100 MG; Start 12/05/18 at 19:00 Famotidine (Pepcid) 20 mg Q12 PO Last administered on 12/13/18 08:35; Admin Dose 20 MG; Start 12/06/18 at 21:00 Morphine Sulfate (morphine) 2 mg DAILY PRN IV SEVERE PAIN LEVEL 7-10 Last administered on 12/12/18 13:04; Admin Dose 2 MG; Start 12/07/18 at 13:00 Polyethylene Glycol (Miralax) 17 gm DAILY PO Last administered on 12/13/18 08:34; Admin Dose 17 GM; Start 12/07/18 at 16:00 Docusate Sodium (Colace) 200 mg BID PO Last administered on 12/13/18 08:35; Admin Dose 200 MG; Start 12/07/18 at 21:00 Lactulose (Enulose) 20 gm DAILY PRN PO CONSTIPATION Last administered on 12/07/18 17:07; Admin Dose 20 GM; Start 12/07/18 at 16:00 Miscellaneous Information (Pending Santyl Order For Wound Care) 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 PRN XX WOUND CARE; Start 12/08/18 at 02:30 Vancomycin HCl 1.25 gm/Sodium Chloride 250 ml @ 83.333 mls/ hr Q8H IVPB Last administered on 12/13/18 13:49; Admin Dose 83.333 MLS/HR; Start 12/08/18 at 22:00 Multivitamins/ Minerals (Theragran-M) 1 tab DAILY PO Last administered on 12/13/18 08:35; Admin Dose 1 TAB; Start 12/09/18 at 09:00 Ascorbic Acid (Vitamin C) 500 mg BID PO Last administered on 12/13/18 08:35; Admin Dose 500 MG; Start 12/09/18 at 09:00 Zinc Sulfate (Zinc Sulfate) 220 mg DAILY PO Last administered on 12/13/18 08:35; Admin Dose 220 MG; Start 12/09/18 at 09:00 Ibuprofen (Motrin) 400 mg Q6H PRN PO MILD PAIN(1-3) OR TEMP>38C Last administer ed on 12/12/18 08:39; Admin Dose 400 MG; Start 12/10/18 at 21:00 Trimethoprim/ Sulfamethoxazole (Bactrim (Ds)) 1 tab DAILY PO Last administered on 12/13/18 08:35; Admin Dose 1 TAB; Start 12/12/18 at 12:00 Alteplase, Recombinant (Cathflo (Activase)) 2 mg MAY REPEAT X1 PRN CATHETER IF CATHETER REMAINS OCCULUDED Last administered on 12/12/18 18:04; Admin Dose 2 MG; Start 12/12/18 at 14:30 Acetaminophen/ Hydrocodone Bitart ([place] (5/325)) 1 tab Q4H PRN PO MODERATE PAIN LEVEL 4-6 Last administered on 7/16/19at 13:49; Admin Dose 1 TAB; Start 12/12/18 at 15:00 Fluconazole (Diflucan) 100 mg DAILY PO Last administered on 12/13/18at 12:18; Admin Dose 100 MG; Start 12/13/18 at 11:30 Azithromycin (Zithromax) 1,200 mg Q7D PO ; Start 12/13/18 at 18:00 Meropenem/Sodium Chloride 50 ml @ 100 mls/hr Q8H IVPB ; Start 12/13/18 at 17:00 LAITH MCKEON Dec 13, 2018 16:01
[2018-12-13] MEDS: MEROPENEM 1 GM/50ML(PMX) 50 ML IVPB SCH (17:09)
[2018-12-13] MEDS ORDERED: AZITHROMYCIN 600 MG TAB PO SCH (18:00)
--- NOTE | 2018-12-13 21:02 | CONS ---
Consult Date/Type/Reason Admit Date/Time Nov 30, 2018 at 20:47 Initial Consult Date 12/02/18 Type of Consultation: Urology Reason for Consultation Nida gangrene and necrotizing fasciitis Requesting Provider: ROBIN TAVAREZ MD Date/Time of Note DATE: 12/13/18 TIME: 20:59 Subjective Patient is feeling better and he states that since the PICC line was removed he had no fever or chills Objective Vitals Vital Signs Date Temp Pulse Resp B/P (MAP) Pulse Ox O2 O2 Flow FiO2 Time Delivery Rate 12/13/18 99.7 18:00 12/13/18 108 18 123/70 97 Room Air 14:00 (87) 108 Intake and Output 12/12/18 12/12/18 12/13/18 1515:00 23:00 07:00 IntakeIntake Total 550 ml 2050 ml 1550 ml OutputOutput Total 800 ml 610 ml 1000 ml BalanceBalance -250 ml 1440 ml 550 ml Exam I did remove the packing of the wound and did some local debridement of the abdominal and scrotal wounds and repacked the wound with Kerlix soaked in Dakin's solution. Results/Medications Result Diagram: 12/12/18 0548 12/12/18 0548 Results 24 hrs Laboratory Tests Test 12/13/18 08:31 Lab Scanned Report REFERENCE LAB Home Meds Reported Medications Atropine Sulfate/0.9 %Sod Chlr (Atropine 0.01%-Ns Eye Drops) 10 Ml Drops, 1 ML OP BID, #1 12/05/18 Prednisolone Acetate* (Pred Forte*) 5 Ml Susp, 1 DROP LEFT EYE Q1HOUR, EA 12/04/18 Medications Current Medications Ondansetron HCl (Zofran Inj) 4 mg Q6H PRN IV NAUSEA AND/OR VOMITING Last administered on 12/11/18at 17:52; Admin Dose 4 MG; Start 11/30/18 at 21:00 Acetaminophen (Tylenol Liquid) 650 mg Q6H PRN PO PAIN LEVEL 1-3 OR FEVER Last administered on 12/13/18at 14:24; Admin Dose 650 MG; Start 11/30/18 at 21:00 Vancomycin HCl (Vanco Iv Per Pharmacy) VANCOMYCIN PER PHARMACY PER PROTOCOL XX ; Start 11/30/18 at 21:00 Morphine Sulfate (morphine) 2 mg Q2H PRN IV MOD TO SEVERE PAIN Last administered on 12/13/18 20:10; Admin Dose 2 MG; Start 12/04/18 at 11:30 Emtricitabine/ Tenofovir (Truvada) 1 tab DAILY PO Last administered on 12/13/18 08:35; Admin Dose 1 TAB; Start 12/06/18 at 09:00 Lamivudine/ Zidovudine (Combivir) 1 tab BID PO Last administered on 12/13/18 08:35; Admin Dose 1 TAB; Start 12/06/18 at 09:00 Sodium Hypochlorite (Dakins Diluted ()) 1 applic DAILY TP Last administered on 12/13/18 08:36; Admin Dose 1 APPLIC; Start 12/06/18 at 09:00 Prednisolone Acetate (Pred-Forte 1%) 1 drop DAILY LEFT EYE Last administered on 12/13/18 08:35; Admin Dose 1 DROP; Start 12/05/18 at 19:00 Atropine Sulfate (Atropine 1% Oph) 1 drop BID LEFT EYE Last administered on 12/13/18 08:35; Admin Dose 1 DROP; Start 12/07/18 at 21:00 Guaifenesin (Robitussin Liquid Cup) 100 mg Q4H PRN PO COUGH Last administered on 12/05/18 20:07; Admin Dose 100 MG; Start 12/05/18 at 19:00 Famotidine (Pepcid) 20 mg Q12 PO Last administered on 12/13/18 08:35; Admin Dose 20 MG; Start 12/06/18 at 21:00 Morphine Sulfate (morphine) 2 mg DAILY PRN IV SEVERE PAIN LEVEL 7-10 Last administered on 12/12/18 13:04; Admin Dose 2 MG; Start 12/07/18 at 13:00 Polyethylene Glycol (Miralax) 17 gm DAILY PO Last administered on 12/13/18 08:34; Admin Dose 17 GM; Start 12/07/18 at 16:00 Docusate Sodium (Colace) 200 mg BID PO Last administered on 12/13/18 08:35; Admin Dose 200 MG; Start 12/07/18 at 21:00 Lactulose (Enulose) 20 gm DAILY PRN PO CONSTIPATION Last administered on 12/07/18 17:07; Admin Dose 20 GM; Start 12/07/18 at 16:00 Miscellaneous Information (Pending Santyl Order For Wound Care) 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 PRN XX WOUND CARE; Start 12/08/18 at 02:30 Vancomycin HCl 1.25 gm/Sodium Chloride 250 ml @ 83.333 mls/ hr Q8H IVPB Last administered on 12/13/18 13:49; Admin Dose 83.333 MLS/HR; Start 12/08/18 at 22:00 Multivitamins/ Minerals (Theragran-M) 1 tab DAILY PO Last administered on 12/13/18 08:35; Admin Dose 1 TAB; Start 12/09/18 at 09:00 Ascorbic Acid (Vitamin C) 500 mg BID PO Last administered on 12/13/18 08:35; Admin Dose 500 MG; Start 12/09/18 at 09:00 Zinc Sulfate (Zinc Sulfate) 220 mg DAILY PO Last administered on 12/13/18 08:35; Admin Dose 220 MG; Start 12/09/18 at 09:00 Ibuprofen (Motrin) 400 mg Q6H PRN PO MILD PAIN(1-3) OR TEMP>38C Last administered on 12/12/18 08:39; Admin Dose 400 MG; Start 12/10/18 at 21:00 Trimethoprim/ Sulfamethoxazole (Bactrim (Ds)) 1 tab DAILY PO Last administered on 12/13/18 08:35; Admin Dose 1 TAB; Start 12/12/18 at 12:00 Alteplase, Recombinant (Cathflo (Activase)) 2 mg MAY REPEAT X1 PRN CATHETER IF CATHETER REMAINS OCCULUDED Last administered on 12/12/18 18:04; Admin Dose 2 MG; Start 12/12/18 at 14:30 Acetaminophen/ Hydrocodone Bitart ([place] (5/325)) 1 tab Q4H PRN PO MODERATE PAIN LEVEL 4-6 Last administered on 12/13/18 17:53; Admin Dose 1 TAB; Start 12/12/18 at 15:00 Fluconazole (Diflucan) 100 mg DAILY PO Last administered on 12/13/18 12:18; Admin Dose 100 MG; Start 12/13/18 at 11:30 Azithromycin (Zithromax) 1,200 mg Q7D PO Last administered on 12/13/18 17:58; Admin Dose 1,200 MG; Start 12/13/18 at 18:00 Meropenem/Sodium Chloride 50 ml @ 100 mls/hr Q8H IVPB Last administered on 12/13/18at 17:09; Admin Dose 100 MLS/HR; Start 12/13/18 at 17:00 Assessment/Plan Hospital Course (Demo Recall) 42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 He underwent incision and drainage of the abdominal wall all the way up to the lower ribs on the left side and also of the left thigh and right inguinal area and debridement of the scrotum and perineal area. The wounds are getting better. He underwent debridement and incision and drainage of a right buttock abscess. The culture from the buttock grew MRSA. He is doing better. His CBC showed a white count that has come down to 3.7 and hemoglobin 7.9 I did change the packing of the wounds and did local debridement in the scrotum and abdomen. He does need plastic surgery to consider skin graft over the left side of the scrotum. He may need another trip to the OR to do another debridement as he is having pain when one tries to debride at bedside. GWEN BUCK MD Dec 13, 2018 21:02
[2018-12-13 21:17] VITALS: BP 108/53; PULSE 116; RESP 16
[2018-12-14] MEDS: MEROPENEM 1 GM/50ML(PMX) 50 ML IVPB SCH ×3 (01:43→17:14)
[2018-12-14] MEDS: ACETAMINOPHEN 650MG/20.3ML CUP PO PRN (01:51)
[2018-12-14 02:33] VITALS: BP 125/64; PULSE 113; RESP 18
[2018-12-14] MEDS: HYDROCODONE/APAP (5/325) TAB PO PRN ×4 (02:40→20:57)
[2018-12-14] MEDS: VANCOMYCIN HCL 1.25 GM in SOD CHLORIDE 0.9% 250 ML IVPB SCH ×3 (05:48→21:00)
[2018-12-14 07:41] VITALS: BP 92/51; PULSE 85; RESP 16
[2018-12-14] MEDS: ASCORBIC ACID 500 MG TAB PO SCH ×2 (08:34→20:56)
[2018-12-14] MEDS: MULTIVITAMINS/MINERALS TAB PO SCH (08:34)
[2018-12-14] MEDS: LAMIVUDINE/ZIDOVUDINE TAB PO SCH ×2 (08:35→20:56)
[2018-12-14] MEDS: FAMOTIDINE 20 MG TAB PO SCH ×2 (08:35→20:56)
[2018-12-14] MEDS: DOCUSATE SODIUM 100 MG CAP PO SCH ×2 (08:35→20:57)
[2018-12-14] MEDS: PREDNISOLONE ACET 1% 5 ML OPH LEFT EYE SCH (08:36)
[2018-12-14] MEDS: ATROPINE 1% 5 ML OPH LEFT EYE SCH ×2 (08:36→20:57)
[2018-12-14] MEDS: ZINC SULFATE 220 MG CAP PO SCH (08:36)
[2018-12-14] MEDS: FLUCONAZOLE 100 MG TAB PO SCH (08:36)
[2018-12-14] MEDS: EMTRICITABINE/TENOFOVIR TAB PO SCH (08:36)
[2018-12-14] MEDS: TRIMETHOPRIM/SULFAMETHOX (DS) TAB PO SCH (08:37)
[2018-12-14] MEDS: DAKINS 0.0125%(1/40) 473 ML SOLUTION TP SCH (08:43)
[2018-12-14] MEDS: POLYETHYLENE GLYCOL 17 GM PACKET PO SCH (08:44)
--- NOTE | 2018-12-14 11:32 | CONS ---
Assessment/Plan Assessment/Plan Hospital Course (Demo Recall) Tm 103.1 this am Indwelling: PIV Microbiology: Wound culture grew MRSA, repeat cx + Kleb, E coli, MRSA Antimicrobials: Vancomycin, Merrem, Truvada, Combivir, Diflucan, Bactrim, Zithromax Physical examination: Well-developed well-nourished middle-aged man who is alert in no distress. Head atraumatic normocephalic sclera nonicteric neck is supple chest rise symmetrical breath sounds clear heart: S1-S2 abdomen soft bowel sounds present extremities without cyanosis. Skin: Patient has dressing over his left side of the abdomen and bilateral wound vacs to hips Assessment: 1. Ongoing fevers 2. Fornier's gangrene and necrotizing fasciitis, status post multiple recurrent debridement ==> latest one on 12/08/18 by urology 3. AIDS 4. Status post renal failure Plan: Clinically stable, cxr neg, bld/urine cx's neg,continue abx, wound care per surgery and urology Consultation Date/Type/Reason Admit Date/Time Nov 30, 2018 at 20:47 Initial Consult Date 12/02/18 Type of Consult id Requesting Provider: ROBIN TAVAREZ MD Date/Time of Note DATE: 12/14/18 TIME: 11:29 Exam/Review of Systems Exam Vitals Vital Signs Date Temp Pulse Resp B/P (MAP) Pulse Ox O2 O2 Flow FiO2 Time Delivery Rate 12/14/18 98.8 85 16 92/51 (65) 96 07:41 12/13/18 Room Air 14:00 Intake and Output 12/13/18 12/13/18 12/14/18 1515:00 23:00 07:00 IntakeIntake Total 1350 ml 850 ml 300 ml OutputOutput Total 1550 ml 620 ml 80 ml BalanceBalance -200 ml 230 ml 220 ml Results Result Diagram: 12/14/18 0536 12/14/18 0536 Results 24hrs Laboratory Tests Test 12/14/18 04:30 12/14/18 05:36 12/14/18 08:11 Urine Color STRAW Urine Clarity CLEAR Urine pH 7.0 Urine Specific [place] 1.005 Urine Ketones NEGATIVE Urine Nitrite NEGATIVE Urine Bilirubin NEGATIVE Urine Urobilinogen NEGATIVE Urine Leukocyte Esterase NEGATIVE Urine Hemoglobin NEGATIVE Urine Glucose NEGATIVE Urine Total Protein NEGATIVE White Blood Count 3.9 L Red Blood Count 2.92 L Hemoglobin 8.1 L Hematocrit 24.7 L Mean Corpuscular Volume 84.6 Mean Corpuscular Hemoglobin 27.7 L Mean Corpuscular 32.8 Hemoglobin Concent Red Cell Distribution Width 17.2 H Platelet Count 417 H Mean Platelet Volume 10.0 Immature Granulocytes % 0.800 H Neutrophils % Segmented Neutrophils % (Manual) 63 Band Neutrophils % (Manual) 17 H Lymphocytes % Lymphocytes % (Manual) 13 L Reactive Lymphocytes % (Manual) 1 H Monocytes % Monocytes % (Manual) 1 Eosinophils % Eosinophils % (Manual) 4 Basophils % Metamyelocytes % (manual) 1 H Nucleated Red Blood Cells % 0.0 Immature Granulocytes # 0.030 Neutrophils # Neutrophils # (Manual) 2.5 Band Neutrophils # 0.6 Lymphocytes (Manual) 0.5 L Lymphocytes # Reactive Lymphocytes # 0.0 Monocytes # Monocytes # (Manual) 0.0 L Eosinophils # Basophils # Metamyelocytes # 0.0 Nucleated Red Blood Cells # Platelet Estimate NORMAL Giant Platelets 2 H Anisocytosis 1+ Macrocytosis 1+ Sodium Level 131 L Potassium Level 3.8 Chloride Level 101 Carbon Dioxide Level 24 Anion Gap 6 Blood Urea Nitrogen 10 Creatinine 0.86 Est Glomerular Filtrat > 60 Rate mL/min Glucose Level 90 Calcium Level 7.6 L Total Bilirubin 0.3 Direct Bilirubin 0.00 Indirect Bilirubin 0.3 Aspartate Amino Transf (AST/SGOT) 72 H Alanine 26 Aminotransferase (ALT/SGPT) Alkaline Phosphatase 73 Total Protein 6.5 Albumin 2.4 L Globulin 4.10 H Albumin/Globulin Ratio 0.58 Random Cortisol 10.9 Lab Scanned Report REFERENCE LAB Medications Medication Current Medications Ondansetron HCl (Zofran Inj) 4 mg Q6H PRN IV NAUSEA AND/OR VOMITING Last administered on 12/11/18at 17:52; Admin Dose 4 MG; Start 11/30/18 at 21:00 Acetaminophen (Tylenol Liquid) 650 mg Q6H PRN PO PAIN LEVEL 1-3 OR FEVER Last administered on 12/14/18at 01:51; Admin Dose 650 MG; Start 11/30/18 at 21:00 Vancomycin HCl (Vanco Iv Per Pharmacy) VANCOMYCIN PER PHARMACY PER PROTOCOL XX ; Start 11/30/18 at 21:00 Morphine Sulfate (morphine) 2 mg Q2H PRN IV MOD TO SEVERE PAIN Last administered on 12/13/18 20:10; Admin Dose 2 MG; Start 12/04/18 at 11:30 Emtricitabine/ Tenofovir (Truvada) 1 tab DAILY PO Last administered on 12/14/18 08:36; Admin Dose 1 TAB; Start 12/06/18 at 09:00 Lamivudine/ Zidovudine (Combivir) 1 tab BID PO Last administered on 12/14/18 08:35; Admin Dose 1 TAB; Start 12/06/18 at 09:00 Sodium Hypochlorite (Dakins Diluted (40)) 1 applic DAILY TP Last administered on 12/13/18 08:36; Admin Dose 1 APPLIC; Start 12/06/18 at 09:00 Prednisolone Acetate (Pred-Forte 1%) 1 drop DAILY LEFT EYE Last administered on 12/14/18 08:36; Admin Dose 1 DROP; Start 12/05/18 at 19:00 Atropine Sulfate (Atropine 1% Oph) 1 drop BID LEFT EYE Last administered on 12/14/18 08:36; Admin Dose 1 DROP; Start 12/07/18 at 21:00 Guaifenesin (Robitussin Liquid Cup) 100 mg Q4H PRN PO COUGH Last administered on 12/05/18 20:07; Admin Dose 100 MG; Start 12/05/18 at 19:00 Famotidine (Pepcid) 20 mg Q12 PO Last administered on 12/14/18 08:35; Admin Dose 20 MG; Start 12/06/18 at 21:00 Morphine Sulfate (morphine) 2 mg DAILY PRN IV SEVERE PAIN LEVEL 7-10 Last administered on 12/12/18 13:04; Admin Dose 2 MG; Start 12/07/18 at 13:00 Polyethylene Glycol (Miralax) 17 gm DAILY PO Last administered on 12/13/18 08:34; Admin Dose 17 GM; Start 12/07/18 at 16:00 Docusate Sodium (Colace) 200 mg BID PO Last administered on 12/13/18 08:35; Admin Dose 200 MG; Start 12/07/18 at 21:00 Lactulose (Enulose) 20 gm DAILY PRN PO CONSTIPATION Last administered on 12/07/18 17:07; Admin Dose 20 GM; Start 12/07/18 at 16:00 Miscellaneous Information (Pending Santyl Order For Wound Care) 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 PRN XX WOUND CARE; Start 12/08/18 at 02:30 Vancomycin HCl 1.25 gm/Sodium Chloride 250 ml @ 83.333 mls/ hr Q8H IVPB Last administered on 12/14/18at 05:48; Admin Dose 83.333 MLS/HR; Start 12/08/18 at 22:00 Multivitamins/ Minerals (Theragran-M) 1 tab DAILY PO Last administered on 12/14/18 08:34; Admin Dose 1 TAB; Start 12/09/18 at 09:00 Ascorbic Acid (Vitamin C) 500 mg BID PO Last administered on 12/14/18 08:34; Admin Dose 500 MG; Start 12/09/18 at 09:00 Zinc Sulfate (Zinc Sulfate) 220 mg DAILY PO Last administered on 12/14/18 08:36; Admin Dose 220 MG; Start 12/09/18 at 09:00 Ibuprofen (Motrin) 400 mg Q6H PRN PO MILD PAIN(1-3) OR TEMP>38C Last administered on 12/12/18 08:39; Admin Dose 400 MG; Start 12/10/18 at 21:00 Trimethoprim/ Sulfamethoxazole (Bactrim (Ds)) 1 tab DAILY PO Last administered on 12/14/18 08:37; Admin Dose 1 TAB; Start 12/12/18 at 12:00 Alteplase, Recombinant (Cathflo (Activase)) 2 mg MAY REPEAT X1 PRN CATHETER IF CATHETER REMAINS OCCULUDED Last administered on 12/12/18at 18:04; Admin Dose 2 MG; Start 12/12/18 at 14:30 Acetaminophen/ Hydrocodone Bitart ([place] (5/325)) 1 tab Q4H PRN PO MODERATE PAIN LEVEL 4-6 Last administered on 12/14/18 08:34; Admin Dose 1 TAB; Start 12/12/18 at 15:00 Fluconazole (Diflucan) 100 mg DAILY PO Last administered on 12/14/18 08:36; Admin Dose 100 MG; Start 12/13/18 at 11:30 Azithromycin (Zithromax) 1,200 mg Q7D PO Last administered on 12/13/18 17:58; Admin Dose 1,200 MG; Start 12/13/18 at 18:00 Meropenem/Sodium Chloride 50 ml @ 100 mls/hr Q8H IVPB Last administered on 12/14/18at 09:59; Admin Dose 100 MLS/HR; Start 12/13/18 at 17:00 CRYSTAL TALAVERA NP Dec 14, 2018 11:32
[2018-12-14] MEDS: morphine 2 MG INJ IV PRN ×3 (11:58→23:53)
[2018-12-14 14:00] VITALS: BP 105/56; PULSE 93; RESP 16
--- NOTE | 2018-12-14 15:16 | PN ---
Date/Time of Note Date/Time of Note DATE: 12/14/18 TIME: 15:15 Assessment/Plan VTE Prophylaxis Risk score (from Ns)>0 risk: 5 SCD applied (from Ns): Yes Pharmacological prophylaxis: NA/contraindicated Pharm contraindication: other Lines/Catheters IV Catheter Type (from Nrs): Peripheral IV Urinary Cath still in place: No Assessment/Plan Hospital Course 42 yo male with HIV/AIDS who presented with fourniers gangrene and necrotizing fasciitis of abdmoen - s/p I and D procedures per She Damon and Mela who are following. No plan for repeat procedures at this time though may eventually need a skin graft. We had considered transfer to tertiary center for hyperbaric oxygen therapy however it apperas this will not be possible - Wound care, wound vac - Abx per ID HIV/AIDS: - ARVs and ppx per ID Hyponatremia: - Urine studies suggested hypovolemia as etiology. Now improving Anemia: - Adequate iron stores. This is anemia of inflammation Dispo: Will likely need to remain in house for wound care, pending [facility] Result Diagram: 12/14/18 0536 12/14/18 0536 Results 24hrs Laboratory Tests Test 12/14/18 04:30 12/14/18 05:36 12/14/18 08:11 Urine Color STRAW Urine Clarity CLEAR Urine pH 7.0 Urine Specific [place] 1.005 Urine Ketones NEGATIVE Urine Nitrite NEGATIVE Urine Bilirubin NEGATIVE Urine Urobilinogen NEGATIVE Urine Leukocyte Esterase NEGATIVE Urine Hemoglobin NEGATIVE Urine Glucose NEGATIVE Urine Total Protein NEGATIVE White Blood Count 3.9 L Red Blood Count 2.92 L Hemoglobin 8.1 L Hematocrit 24.7 L Mean Corpuscular Volume 84.6 Mean Corpuscular Hemoglobin 27.7 L Mean Corpuscular 32.8 Hemoglobin Concent Red Cell Distribution Width 17.2 H Platelet Count 417 H Mean Platelet Volume 10.0 Immature Granulocytes % 0.800 H Neutrophils % Segmented Neutrophils % (Manual) 63 Band Neutrophils % (Manual) 17 H Lymphocytes % Lymphocytes % (Manual) 13 L Reactive Lymphocytes % (Manual) 1 H Monocytes % Monocytes % (Manual) 1 Eosinophils % Eosinophils % (Manual) 4 Basophils % Metamyelocytes % (manual) 1 H Nucleated Red Blood Cells % 0.0 Immature Granulocytes # 0.030 Neutrophils # Neutrophils # (Manual) 2.5 Band Neutrophils # 0.6 Lymphocytes (Manual) 0.5 L Lymphocytes # Reactive Lymphocytes # 0.0 Monocytes # Monocytes # (Manual) 0.0 L Eosinophils # Basophils # Metamyelocytes # 0.0 Nucleated Red Blood Cells # Platelet Estimate NORMAL Giant Platelets 2 H Anisocytosis 1+ Macrocytosis 1+ Sodium Level 131 L Potassium Level 3.8 Chloride Level 101 Carbon Dioxide Level 24 Anion Gap 6 Blood Urea Nitrogen 10 Creatinine 0.86 Est Glomerular Filtrat > 60 Rate mL/min Glucose Level 90 Calcium Level 7.6 L Total Bilirubin 0.3 Direct Bilirubin 0.00 Indirect Bilirubin 0.3 Aspartate Amino Transf (AST/SGOT) 72 H Alanine 26 Aminotransferase (ALT/SGPT) Alkaline Phosphatase 73 Total Protein 6.5 Albumin 2.4 L Globulin 4.10 H Albumin/Globulin Ratio 0.58 Random Cortisol 10.9 Lab Scanned Report REFERENCE LAB Subjective 24 Hr Interval Summary Constitutional: no complaints Exam/Review of Systems Exam Vitals Vital Signs Date Temp Pulse Resp B/P (MAP) Pulse Ox O2 O2 Flow FiO2 Time Delivery Rate 12/14/18 98.7 93 16 105/56 96 14:00 (72) 12/13/18 Room Air 14:00 Intake and Output 12/13/18 12/13/18 12/14/18 1515:00 23:00 07:00 IntakeIntake Total 1350 ml 850 ml 300 ml OutputOutput Total 1550 ml 620 ml 80 ml BalanceBalance -200 ml 230 ml 220 ml Constitutional: alert, oriented Respiratory: clear to auscultation Cardiovascular: regular rate and rhythm Gastrointestinal: soft; No distended Musculoskeletal: nl extremities to inspection Results Results 24hrs Laboratory Tests Test 12/14/18 04:30 12/14/18 05:36 12/14/18 08:11 Urine Color STRAW Urine Clarity CLEAR Urine pH 7.0 Urine Specific [place] 1.005 Urine Ketones NEGATIVE Urine Nitrite NEGATIVE Urine Bilirubin NEGATIVE Urine Urobilinogen NEGATIVE Urine Leukocyte Esterase NEGATIVE Urine Hemoglobin NEGATIVE Urine Glucose NEGATIVE Urine Total Protein NEGATIVE White Blood Count 3.9 L Red Blood Count 2.92 L Hemoglobin 8.1 L Hematocrit 24.7 L Mean Corpuscular Volume 84.6 Mean Corpuscular Hemoglobin 27.7 L Mean Corpuscular 32.8 Hemoglobin Concent Red Cell Distribution Width 17.2 H Platelet Count 417 H Mean Platelet Volume 10.0 Immature Granulocytes % 0.800 H Neutrophils % Segmented Neutrophils % (Manual) 63 Band Neutrophils % (Manual) 17 H Lymphocytes % Lymphocytes % (Manual) 13 L Reactive Lymphocytes % (Manual) 1 H Monocytes % Monocytes % (Manual) 1 Eosinophils % Eosinophils % (Manual) 4 Basophils % Metamyelocytes % (manual) 1 H Nucleated Red Blood Cells % 0.0 Immature Granulocytes # 0.030 Neutrophils # Neutrophils # (Manual) 2.5 Band Neutrophils # 0.6 Lymphocytes (Manual) 0.5 L Lymphocytes # Reactive Lymphocytes # 0.0 Monocytes # Monocytes # (Manual) 0.0 L Eosinophils # Basophils # Metamyelocytes # 0.0 Nucleated Red Blood Cells # Platelet Estimate NORMAL Giant Platelets 2 H Anisocytosis 1+ Macrocytosis 1+ Sodium Level 131 L Potassium Level 3.8 Chloride Level 101 Carbon Dioxide Level 24 Anion Gap 6 Blood Urea Nitrogen 10 Creatinine 0.86 Est Glomerular Filtrat > 60 Rate mL/min Glucose Level 90 Calcium Level 7.6 L Total Bilirubin 0.3 Direct Bilirubin 0.00 Indirect Bilirubin 0.3 Aspartate Amino Transf (AST/SGOT) 72 H Alanine 26 Aminotransferase (ALT/SGPT) Alkaline Phosphatase 73 Total Protein 6.5 Albumin 2.4 L Globulin 4.10 H Albumin/Globulin Ratio 0.58 Random Cortisol 10.9 Lab Scanned Report REFERENCE LAB Medications Medication Current Medications Ondansetron HCl (Zofran Inj) 4 mg Q6H PRN IV NAUSEA AND/OR VOMITING Last administered on 12/11/18at 17:52; Admin Dose 4 MG; Start 11/30/18 at 21:00 Acetaminophen (Tylenol Liquid) 650 mg Q6H PRN PO PAIN LEVEL 1-3 OR FEVER Last administered on 12/14/18at 01:51; Admin Dose 650 MG; Start 11/30/18 at 21:00 Vancomycin HCl (Vanco Iv Per Pharmacy) VANCOMYCIN PER PHARMACY PER PROTOCOL XX ; Start 11/30/18 at 21:00 Morphine Sulfate (morphine) 2 mg Q2H PRN IV MOD TO SEVERE PAIN Last administered on 12/14/18at 11:58; Admin Dose 2 MG; Start 12/04/18 at 11:30 Emtricitabine/ Tenofovir (Truvada) 1 tab DAILY PO Last administered on 12/14/18at 08:36; Admin Dose 1 TAB; Start 12/06/18 at 09:00 Lamivudine/ Zidovudine (Combivir) 1 tab BID PO Last administered on 12/14/18 08:35; Admin Dose 1 TAB; Start 12/06/18 at 09:00 Sodium Hypochlorite (Dakins Diluted (40)) 1 applic DAILY TP Last administered on 12/13/18 08:36; Admin Dose 1 APPLIC; Start 12/06/18 at 09:00 Prednisolone Acetate (Pred-Forte 1%) 1 drop DAILY LEFT EYE Last administered on 12/14/18 08:36; Admin Dose 1 DROP; Start 12/05/18 at 19:00 Atropine Sulfate (Atropine 1% Oph) 1 drop BID LEFT EYE Last administered on 12/14/18 08:36; Admin Dose 1 DROP; Start 12/07/18 at 21:00 Guaifenesin (Robitussin Liquid Cup) 100 mg Q4H PRN PO COUGH Last administered on 12/05/18 20:07; Admin Dose 100 MG; Start 12/05/18 at 19:00 Famotidine (Pepcid) 20 mg Q12 PO Last administered on 12/14/18 08:35; Admin Dose 20 MG; Start 12/06/18 at 21:00 Morphine Sulfate (morphine) 2 mg DAILY PRN IV SEVERE PAIN LEVEL 7-10 Last administered on 12/12/18 13:04; Admin Dose 2 MG; Start 12/07/18 at 13:00 Polyethylene Glycol (Miralax) 17 gm DAILY PO Last administered on 12/13/18 08:34; Admin Dose 17 GM; Start 12/07/18 at 16:00 Docusate Sodium (Colace) 200 mg BID PO Last administered on 12/13/18 08:35; Admin Dose 200 MG; Start 12/07/18 at 21:00 Lactulose (Enulose) 20 gm DAILY PRN PO CONSTIPATION Last administered on 12/07/18 17:07; Admin Dose 20 GM; Start 12/07/18 at 16:00 [facility] 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 PRN XX WOUND CARE; Start 12/08/18 at 02:30 Vancomycin HCl 1.25 gm/Sodium Chloride 250 ml @ 83.333 mls/ hr Q8H IVPB Last administered on 12/14/18 13:28; Admin Dose 83.333 MLS/HR; Start 12/08/18 at 22:00 Multivitamins/ Minerals (Theragran-M) 1 tab DAILY PO Last administered on 12/14/18 08:34; Admin Dose 1 TAB; Start 12/09/18 at 09:00 Ascorbic Acid (Vitamin C) 500 mg BID PO Last administered on 12/14/18 08:34; Admin Dose 500 MG; Start 12/09/18 at 09:00 Zinc Sulfate (Zinc Sulfate) 220 mg DAILY PO Last administered on 12/14/18 08:36; Admin Dose 220 MG; Start 12/09/18 at 09:00 Ibuprofen (Motrin) 400 mg Q6H PRN PO MILD PAIN(1-3) OR TEMP>38C Last administered on 12/12/18 08:39; Admin Dose 400 MG; Start 12/10/18 at 21:00 Trimethoprim/ Sulfamethoxazole (Bactrim (Ds)) 1 tab DAILY PO Last administered on 12/14/18 08:37; Admin Dose 1 TAB; Start 12/12/18 at 12:00 Alteplase, Recombinant (Cathflo (Activase)) 2 mg MAY REPEAT X1 PRN CATHETER IF CATHETER REMAINS OCCULUDED Last administered on 12/12/18 18:04; Admin Dose 2 MG; Start 12/12/18 at 14:30 Acetaminophen/ Hydrocodone Bitart ([place] (5/325)) 1 tab Q4H PRN PO MODERATE PAIN LEVEL 4-6 Last administered on 12/14/18 08:34; Admin Dose 1 TAB; Start 12/12/18 at 15:00 Fluconazole (Diflucan) 100 mg DAILY PO Last administered on 12/14/18 08:36; Admin Dose 100 MG; Start 12/13/18 at 11:30 Azithromycin (Zithromax) 1,200 mg Q7D PO Last administered on 12/13/18 17:58; Admin Dose 1,200 MG; Start 12/13/18 at 18:00 Meropenem/Sodium Chloride 50 ml @ 100 mls/hr Q8H IVPB Last administered on 12/14/18 09:59; Admin Dose 100 MLS/HR; Start 12/13/18 at 17:00 LAITH MCKEON Dec 14, 2018 15:16
--- NOTE | 2018-12-14 19:25 | CONS ---
Consult Date/Type/Reason Admit Date/Time Nov 30, 2018 at 20:47 Initial Consult Date 12/02/18 Type of Consultation: Urology Reason for Consultation Nida gangrene and necrotizing fasciitis Requesting Provider: ROBIN TAVAREZ MD Date/Time of Note DATE: 12/14/18 TIME: 19:23 Subjective He is feeling better Objective Vitals Vital Signs Date Temp Pulse Resp B/P (MAP) Pulse Ox O2 O2 Flow FiO2 Time Delivery Rate 12/14/18 98.7 93 16 105/56 96 14:00 (72) 12/13/18 Room Air 14:00 Intake and Output 12/13/18 12/13/18 12/14/18 1515:00 23:00 07:00 IntakeIntake Total 1350 ml 850 ml 300 ml OutputOutput Total 1550 ml 620 ml 80 ml BalanceBalance -200 ml 230 ml 220 ml Exam The packing is intact and the nurse will be changing it later on. He is voiding well and the urine is clear Results/Medications Result Diagram: 12/14/18 0536 12/14/18 0536 Results 24 hrs Laboratory Tests Test 12/14/18 04:30 12/14/18 05:36 12/14/18 08:11 Urine Color STRAW Urine Clarity CLEAR Urine pH 7.0 Urine Specific [place] 1.005 Urine Ketones NEGATIVE Urine Nitrite NEGATIVE Urine Bilirubin NEGATIVE Urine Urobilinogen NEGATIVE Urine Leukocyte Esterase NEGATIVE Urine Hemoglobin NEGATIVE Urine Glucose NEGATIVE Urine Total Protein NEGATIVE White Blood Count 3.9 L Red Blood Count 2.92 L Hemoglobin 8.1 L Hematocrit 24.7 L Mean Corpuscular Volume 84.6 Mean Corpuscular Hemoglobin 27.7 L Mean Corpuscular 32.8 Hemoglobin Concent Red Cell Distribution Width 17.2 H Platelet Count 417 H Mean Platelet Volume 10.0 Immature Granulocytes % 0.800 H Neutrophils % Segmented Neutrophils % (Manual) 63 Band Neutrophils % (Manual) 17 H Lymphocytes % Lymphocytes % (Manual) 13 L Reactive Lymphocytes % (Manual) 1 H Monocytes % Monocytes % (Manual) 1 Eosinophils % Eosinophils % (Manual) 4 Basophils % Metamyelocytes % (manual) 1 H Nucleated Red Blood Cells % 0.0 Immature Granulocytes # 0.030 Neutrophils # Neutrophils # (Manual) 2.5 Band Neutrophils # 0.6 Lymphocytes (Manual) 0.5 L Lymphocytes # Reactive Lymphocytes # 0.0 Monocytes # Monocytes # (Manual) 0.0 L Eosinophils # Basophils # Metamyelocytes # 0.0 Nucleated Red Blood Cells # Platelet Estimate NORMAL Giant Platelets 2 H Anisocytosis 1+ Macrocytosis 1+ Sodium Level 131 L Potassium Level 3.8 Chloride Level 101 Carbon Dioxide Level 24 Anion Gap 6 Blood Urea Nitrogen 10 Creatinine 0.86 Est Glomerular Filtrat > 60 Rate mL/min Glucose Level 90 Calcium Level 7.6 L Total Bilirubin 0.3 Direct Bilirubin 0.00 Indirect Bilirubin 0.3 Aspartate Amino Transf (AST/SGOT) 72 H Alanine 26 Aminotransferase (ALT/SGPT) Alkaline Phosphatase 73 Total Protein 6.5 Albumin 2.4 L Globulin 4.10 H Albumin/Globulin Ratio 0.58 Random Cortisol 10.9 Lab Scanned Report REFERENCE LAB Home Meds Reported Medications Atropine Sulfate/0.9 %Sod Chlr (Atropine 0.01%-Ns Eye Drops) 10 Ml Drops, 1 ML OP BID, #1 12/05/18 Prednisolone Acetate* (Pred Forte*) 5 Ml Susp, 1 DROP LEFT EYE Q1HOUR, EA 12/04/18 Medications Current Medications Ondansetron HCl (Zofran Inj) 4 mg Q6H PRN IV NAUSEA AND/OR VOMITING Last administered on 12/11/18at 17:52; Admin Dose 4 MG; Start 11/30/18 at 21:00 Acetaminophen (Tylenol Liquid) 650 mg Q6H PRN PO PAIN LEVEL 1-3 OR FEVER Last administered on 12/14/18at 01:51; Admin Dose 650 MG; Start 11/30/18 at 21:00 Vancomycin HCl (Vanco Iv Per Pharmacy) VANCOMYCIN PER PHARMACY PER PROTOCOL XX ; Start 11/30/18 at 21:00 Morphine Sulfate (morphine) 2 mg Q2H PRN IV MOD TO SEVERE PAIN Last administered on 12/14/18at 18:33; Admin Dose 2 MG; Start 12/04/18 at 11:30 Emtricitabine/ Tenofovir (Truvada) 1 tab DAILY PO Last administered on 12/14/18at 08:36; Admin Dose 1 TAB; Start 12/06/18 at 09:00 Lamivudine/ Zidovudine (Combivir) 1 tab BID PO Last administered on 12/14/18at 08:35; Admin Dose 1 TAB; Start 12/06/18 at 09:00 Sodium Hypochlorite (Dakins Diluted (1/40)) 1 applic DAILY TP Last administered on 12/13/18 08:36; Admin Dose 1 APPLIC; Start 12/06/18 at 09:00 Prednisolone Acetate (Pred-Forte 1%) 1 drop DAILY LEFT EYE Last administered on 12/14/18 08:36; Admin Dose 1 DROP; Start 12/05/18 at 19:00 Atropine Sulfate (Atropine 1% Oph) 1 drop BID LEFT EYE Last administered on 12/14/18 08:36; Admin Dose 1 DROP; Start 12/07/18 at 21:00 Guaifenesin (Robitussin Liquid Cup) 100 mg Q4H PRN PO COUGH Last administered on 12/05/18 20:07; Admin Dose 100 MG; Start 12/05/18 at 19:00 Famotidine (Pepcid) 20 mg Q12 PO Last administered on 12/14/18 08:35; Admin Dose 20 MG; Start 12/06/18 at 21:00 Morphine Sulfate (morphine) 2 mg DAILY PRN IV SEVERE PAIN LEVEL 7-10 Last administered on 12/12/18 13:04; Admin Dose 2 MG; Start 12/07/18 at 13:00 Polyethylene Glycol (Miralax) 17 gm DAILY PO Last administered on 12/13/18 08:34; Admin Dose 17 GM; Start 12/07/18 at 16:00 Docusate Sodium (Colace) 200 mg BID PO Last administered on 12/13/18 08:35; Admin Dose 200 MG; Start 12/07/18 at 21:00 Lactulose (Enulose) 20 gm DAILY PRN PO CONSTIPATION Last administered on 12/07/18 17:07; Admin Dose 20 GM; Start 12/07/18 at 16:00 Miscellaneous Information (Pending Santyl Order For Wound Care) 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 PRN XX WOUND CARE; Start 12/08/18 at 02:30 Vancomycin HCl 1.25 gm/Sodium Chloride 250 ml @ 83.333 mls/ hr Q8H IVPB Last administered on 12/14/18 13:28; Admin Dose 83.333 MLS/HR; Start 12/08/18 at 22:00 Multivitamins/ Minerals (Theragran-M) 1 tab DAILY PO Last administered on 12/14/18 08:34; Admin Dose 1 TAB; Start 12/09/18 at 09:00 Ascorbic Acid (Vitamin C) 500 mg BID PO Last administered on 12/14/18 08:34; Admin Dose 500 MG; Start 12/09/18 at 09:00 Zinc Sulfate (Zinc Sulfate) 220 mg DAILY PO Last administered on 12/14/18 08:36; Admin Dose 220 MG; Start 12/09/18 at 09:00 Ibuprofen (Motrin) 400 mg Q6H PRN PO MILD PAIN(1-3) OR TEMP>38C Last administer ed on 12/12/18 08:39; Admin Dose 400 MG; Start 12/10/18 at 21:00 Trimethoprim/ Sulfamethoxazole (Bactrim (Ds)) 1 tab DAILY PO Last administered on 12/14/18 08:37; Admin Dose 1 TAB; Start 12/12/18 at 12:00 Alteplase, Recombinant (Cathflo (Activase)) 2 mg MAY REPEAT X1 PRN CATHETER IF CATHETER REMAINS OCCULUDED Last administered on 12/12/18at 18:04; Admin Dose 2 MG; Start 12/12/18 at 14:30 Acetaminophen/ Hydrocodone Bitart ([place] (5/325)) 1 tab Q4H PRN PO MODERATE PAIN LEVEL 4-6 Last administered on 12/14/18 15:32; Admin Dose 1 TAB; Start 12/12/18 at 15:00 Fluconazole (Diflucan) 100 mg DAILY PO Last administered on 12/14/18 08:36; Admin Dose 100 MG; Start 12/13/18 at 11:30 Azithromycin (Zithromax) 1,200 mg Q7D PO Last administered on 12/13/18 17:58; Admin Dose 1,200 MG; Start 12/13/18 at 18:00 Meropenem/Sodium Chloride 50 ml @ 100 mls/hr Q8H IVPB Last administered on 12/14/18 17:14; Admin Dose 100 MLS/HR; Start 12/13/18 at 17:00 Assessment/Plan Hospital Course (Demo Recall) 42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 He underwent incision and drainage of the abdominal wall all the way up to the lower ribs on the left side and also of the left thigh and right inguinal area and debridement of the scrotum and perineal area. The wounds are getting better. He underwent debridement and incision and drainage of a right buttock abscess. The culture from the buttock grew MRSA. He is doing better. His CBC showed a white count that has come down to 3.7 and hemoglobin 7.9 I did change the packing of the wou nds and did local debridement in the scrotum and abdomen. He does need plastic surgery to consider skin graft over the left side of the scrotum. GWEN BUCK MD Dec 14, 2018 19:25
[2018-12-14 20:16] VITALS: BP 97/56; PULSE 98; RESP 18
[2018-12-15 02:00] VITALS: BP 98/58; PULSE 81; RESP 17
[2018-12-15] MEDS: MEROPENEM 1 GM/50ML(PMX) 50 ML IVPB SCH ×3 (02:14→17:07)
[2018-12-15] MEDS: HYDROCODONE/APAP (5/325) TAB PO PRN ×6 (02:29→19:34)
[2018-12-15] MEDS: morphine 2 MG INJ IV PRN ×4 (04:14→20:37)
[2018-12-15] MEDS: VANCOMYCIN HCL 1.25 GM in SOD CHLORIDE 0.9% 250 ML IVPB SCH ×3 (05:47→22:41)
[2018-12-15 08:00] VITALS: BP 94/54; PULSE 88; RESP 20
[2018-12-15] MEDS: PREDNISOLONE ACET 1% 5 ML OPH LEFT EYE SCH (08:49)
[2018-12-15] MEDS: MULTIVITAMINS/MINERALS TAB PO SCH (08:49)
[2018-12-15] MEDS: LAMIVUDINE/ZIDOVUDINE TAB PO SCH ×2 (08:49→20:39)
[2018-12-15] MEDS: ZINC SULFATE 220 MG CAP PO SCH (08:49)
[2018-12-15] MEDS: FLUCONAZOLE 100 MG TAB PO SCH (08:49)
[2018-12-15] MEDS: TRIMETHOPRIM/SULFAMETHOX (DS) TAB PO SCH (08:49)
[2018-12-15] MEDS: ATROPINE 1% 5 ML OPH LEFT EYE SCH ×2 (08:49→20:39)
[2018-12-15] MEDS: ASCORBIC ACID 500 MG TAB PO SCH ×2 (08:49→20:39)
[2018-12-15] MEDS: POLYETHYLENE GLYCOL 17 GM PACKET PO SCH (08:50)
[2018-12-15] MEDS: FAMOTIDINE 20 MG TAB PO SCH ×2 (08:50→20:39)
[2018-12-15] MEDS: DOCUSATE SODIUM 100 MG CAP PO SCH ×2 (08:50→21:00)
[2018-12-15] MEDS: EMTRICITABINE/TENOFOVIR TAB PO SCH (08:50)
[2018-12-15] MEDS: DAKINS 0.0125%(1/40) 473 ML SOLUTION TP SCH (08:53)
--- NOTE | 2018-12-15 12:11 | CONS ---
Consult Date/Type/Reason Admit Date/Time Nov 30, 2018 at 20:47 Initial Consult Date 12/02/18 Type of Consultation: Urology Requesting Provider: ROBIN TAVAREZ MD Date/Time of Note DATE: 12/15/18 TIME: 12:10 Subjective Pt has been experiencing fevers and blood pressure has been low. POD # 6 I&D scrotum / penile, perianal site, on contact isolation for mrsa of scrotum. wound vac HEENT: Head is normocephalic. NECK: Supple. HEART: Regular rate. LUNGS: Show diminished breath sounds at the base. ABDOMEN: Soft, nontender to palpation without rebound or guarding. EXTREMITIES: Negative for clubbing, cyanosis, no edema. MUSCULOSKELETAL: The patient's chest exam has dressing over his left chest, clean, dry, intact. GENITOURINARY: The patient's exam has a dressing clean, dry, intact. NEUROLOGIC: No focal deficits. Objective Vitals Vital Signs Date Temp Pulse Resp B/P (MAP) Pulse Ox O2 O2 Flow FiO2 Time Delivery Rate 12/15/18 98.1 88 20 94/54 (67) 96 08:00 12/13/18 Room Air 14:00 Intake and Output 12/14/18 12/14/18 12/15/18 1515:00 23:00 07:00 IntakeIntake Total 1300 ml 800 ml 300 ml OutputOutput Total 2800 ml 450 ml 1850 ml BalanceBalance -1500 ml 350 ml -1550 ml Results/Medications Result Diagram: 12/14/18 0536 12/14/18 0536 Home Meds Reported Medications Atropine Sulfate/0.9 %Sod Chlr (Atropine 0.01%-Ns Eye Drops) 10 Ml Drops, 1 ML OP BID, #1 12/05/18 Prednisolone Acetate* (Pred Forte*) 5 Ml Susp, 1 DROP LEFT EYE Q1HOUR, EA 12/04/18 Medications Current Medications Ondansetron HCl (Zofran Inj) 4 mg Q6H PRN IV NAUSEA AND/OR VOMITING Last administered on 12/11/18at 17:52; Admin Dose 4 MG; Start 11/30/18 at 21:00 Acetaminophen (Tylenol Liquid) 650 mg Q6H PRN PO PAIN LEVEL 1-3 OR FEVER Last administered on 12/14/18at 01:51; Admin Dose 650 MG; Start 11/30/18 at 21:00 Vancomycin HCl (Vanco Iv Per Pharmacy) VANCOMYCIN PER PHARMACY PER PROTOCOL XX ; Start 11/30/18 at 21:00 Morphine Sulfate (morphine) 2 mg Q2H PRN IV MOD TO SEVERE PAIN Last administered on 12/15/18 09:48; Admin Dose 2 MG; Start 12/04/18 at 11:30 Emtricitabine/ Tenofovir (Truvada) 1 tab DAILY PO Last administered on 12/15/18 08:50; Admin Dose 1 TAB; Start 12/06/18 at 09:00 Lamivudine/ Zidovudine (Combivir) 1 tab BID PO Last administered on 12/15/18 08:49; Admin Dose 1 TAB; Start 12/06/18 at 09:00 Sodium Hypochlorite (Dakins Diluted ()) 1 applic DAILY TP Last administered on 12/13/18 08:36; Admin Dose 1 APPLIC; Start 12/06/18 at 09:00 Prednisolone Acetate (Pred-Forte 1%) 1 drop DAILY LEFT EYE Last administered on 12/15/18 08:49; Admin Dose 1 DROP; Start 12/05/18 at 19:00 Atropine Sulfate (Atropine 1% Oph) 1 drop BID LEFT EYE Last administered on 12/15/18 08:49; Admin Dose 1 DROP; Start 12/07/18 at 21:00 Guaifenesin (Robitussin Liquid Cup) 100 mg Q4H PRN PO COUGH Last administered on 12/05/18 20:07; Admin Dose 100 MG; Start 12/05/18 at 19:00 Famotidine (Pepcid) 20 mg Q12 PO Last administered on 12/15/18 08:50; Admin Dose 20 MG; Start 12/06/18 at 21:00 Morphine Sulfate (morphine) 2 mg DAILY PRN IV SEVERE PAIN LEVEL 7-10 Last administered on 12/12/18 13:04; Admin Dose 2 MG; Start 12/07/18 at 13:00 Polyethylene Glycol (Miralax) 17 gm DAILY PO Last administered on 12/13/18 08:34; Admin Dose 17 GM; Start 12/07/18 at 16:00 Docusate Sodium (Colace) 200 mg BID PO Last administered on 7/16/19at 08:35; Admin Dose 200 MG; Start 12/07/18 at 21:00 Lactulose (Enulose) 20 gm DAILY PRN PO CONSTIPATION Last administered on 12/07/18 17:07; Admin Dose 20 GM; Start 12/07/18 at 16:00 Miscellaneous Information (Pending Santyl Order For Wound Care) 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 PRN XX WOUND CARE; Start 12/08/18 at 02:30 Vancomycin HCl 1.25 gm/Sodium Chloride 250 ml @ 83.333 mls/ hr Q8H IVPB Last administered on 12/15/18 05:47; Admin Dose 83.333 MLS/HR; Start 12/08/18 at 22:00 Multivitamins/ Minerals (Theragran-M) 1 tab DAILY PO Last administered on 12/15/18 08:49; Admin Dose 1 TAB; Start 12/09/18 at 09:00 Ascorbic Acid (Vitamin C) 500 mg BID PO Last administered on 12/15/18 08:49; Admin Dose 500 MG; Start 12/09/18 at 09:00 Zinc Sulfate (Zinc Sulfate) 220 mg DAILY PO Last administered on 12/15/18 08:49; Admin Dose 220 MG; Start 12/09/18 at 09:00 Ibuprofen (Motrin) 400 mg Q6H PRN PO MILD PAIN(1-3) OR TEMP>38C Last administe red on 12/12/18at 08:39; Admin Dose 400 MG; Start 12/10/18 at 21:00 Trimethoprim/ Sulfamethoxazole (Bactrim (Ds)) 1 tab DAILY PO Last administered on 12/15/18 08:49; Admin Dose 1 TAB; Start 12/12/18 at 12:00 Alteplase, Recombinant (Cathflo (Activase)) 2 mg MAY REPEAT X1 PRN CATHETER IF CATHETER REMAINS OCCULUDED Last administered on 12/12/18 18:04; Admin Dose 2 MG; Start 12/12/18 at 14:30 Acetaminophen/ Hydrocodone Bitart ([place] (5/325)) 1 tab Q4H PRN PO MODERATE PAIN LEVEL 4-6 Last administered on 12/15/18 10:49; Admin Dose 1 TAB; Start 12/12/18 at 15:00 Fluconazole (Diflucan) 100 mg DAILY PO Last administered on 12/15/18at 08:49; Admin Dose 100 MG; Start 12/13/18 at 11:30 Azithromycin (Zithromax) 1,200 mg Q7D PO Last administered on 12/13/18at 17:58; Admin Dose 1,200 MG; Start 12/13/18 at 18:00 Meropenem/Sodium Chloride 50 ml @ 100 mls/hr Q8H IVPB Last administered on 12/15/18at 08:50; Admin Dose 100 MLS/HR; Start 12/13/18 at 17:00 Miscellaneous Information (*Rx Drug Level Order Reminder*) VANCOMYCIN TROUGH AT 2100 2100 ONCE XX ; Start 12/15/18 at 21:00; Stop 12/15/18 at 21:01 Assessment/Plan Hospital Course (Demo Recall) 1. Nonoliguric acute kidney injury. Etiology is secondary to hemodynamics. Renal function is improved. Continue to monitor. 2. Hyponatremia. 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 Continue to monitor sodium levels. improved with some fluctuation. no indication for hypertonic saline. 3. Anemia/ leucopenia. Continue to monitor and hematocrit levels. 4. Fevers- persistent. 5. 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 6. Fasciitis. The patient is status post multiple debridements, status post incision and drainage of perineal and penile region. Continue current antibiotic regimen, dressing changes, follow up with urology. may need skin graft. 7. Status post respiratory failure. 8. Encephalopathy, resolved 9. History of human immunodeficiency virus. Continue to monitor. 10. History of hepatitis. 11. hypotension- bp better sp bolus. generally low. consider adrenal insufficiency. TRINITY POLO MD Dec 15, 2018 12:11
[2018-12-15 14:30] VITALS: BP 98/59; PULSE 79; RESP 16
--- NOTE | 2018-12-15 15:03 | CONS ---
Assessment/Plan Assessment/Plan Hospital Course (Demo Recall) Afebrile. Alert, feels ok Indwelling: PIV Microbiology: Wound culture grew MRSA, repeat cx + Kleb, E coli, MRSA Antimicrobials: Vancomycin, Merrem, Truvada, Combivir, Diflucan, Bactrim, Zithr omax Physical examination: Well-developed well-nourished middle-aged man who is alert in no distress. Head atraumatic normocephalic sclera nonicteric neck is supple chest rise symmetrical breath sounds clear heart: S1-S2 abdomen soft bowel sounds present extremities without cyanosis. Skin: Patient has dressing over his left side of the abdomen and bilateral wound vacs to hips Assessment: 1. Ongoing fevers 2. Fornier's gangrene and necrotizing fasciitis, status post multiple recurrent debridement ==> latest one on 12/08/18 by urology 3. AIDS 4. Status post renal failure Plan: Clinically stable, bld/urine cx's remain neg, fevers resolving s/p PICC dc'd, continue abx, wound care per surgery and urology, may need plastic surgery eval DW pt Consultation Date/Type/Reason Admit Date/Time Nov 30, 2018 at 20:47 Initial Consult Date 12/02/18 Type of Consult id Requesting Provider: ROBIN TAVAREZ MD Date/Time of Note DATE: 12/15/18 TIME: 15:01 Exam/Review of Systems Exam Vitals Vital Signs Date Temp Pulse Resp B/P (MAP) Pulse Ox O2 O2 Flow FiO2 Time Delivery Rate 12/15/18 98.1 88 20 94/54 (67) 96 08:00 12/13/18 Room Air 14:00 Intake and Output 12/14/18 12/14/18 12/15/18 1414:59 22:59 06:59 IntakeIntake Total 1300 ml 800 ml 300 ml OutputOutput Total 2800 ml 450 ml 1850 ml BalanceBalance -1500 ml 350 ml -1550 ml Results Result Diagram: 12/14/18 0536 12/14/18 0536 Medications Medication Current Medications Ondansetron HCl (Zofran Inj) 4 mg Q6H PRN IV NAUSEA AND/OR VOMITING Last administered on 12/11/18at 17:52; Admin Dose 4 MG; Start 11/30/18 at 21:00 Acetaminophen (Tylenol Liquid) 650 mg Q6H PRN PO PAIN LEVEL 1-3 OR FEVER Last administered on 12/14/18 01:51; Admin Dose 650 MG; Start 11/30/18 at 21:00 Vancomycin HCl (Vanco Iv Per Pharmacy) VANCOMYCIN PER PHARMACY PER PROTOCOL XX ; Start 11/30/18 at 21:00 Morphine Sulfate (morphine) 2 mg Q2H PRN IV MOD TO SEVERE PAIN Last administered on 12/15/18 09:48; Admin Dose 2 MG; Start 12/04/18 at 11:30 Emtricitabine/ Tenofovir (Truvada) 1 tab DAILY PO Last administered on 12/15/18 08:50; Admin Dose 1 TAB; Start 12/06/18 at 09:00 Lamivudine/ Zidovudine (Combivir) 1 tab BID PO Last administered on 12/15/18 08:49; Admin Dose 1 TAB; Start 12/06/18 at 09:00 Sodium Hypochlorite (Dakins Diluted ()) 1 applic DAILY TP Last administered on 12/13/18 08:36; Admin Dose 1 APPLIC; Start 12/06/18 at 09:00 Prednisolone Acetate (Pred-Forte 1%) 1 drop DAILY LEFT EYE Last administered on 12/15/18 08:49; Admin Dose 1 DROP; Start 12/05/18 at 19:00 Atropine Sulfate (Atropine 1% Oph) 1 drop BID LEFT EYE Last administered on 12/15/18 08:49; Admin Dose 1 DROP; Start 12/07/18 at 21:00 Guaifenesin (Robitussin Liquid Cup) 100 mg Q4H PRN PO COUGH Last administered on 12/05/18 20:07; Admin Dose 100 MG; Start 12/05/18 at 19:00 Famotidine (Pepcid) 20 mg Q12 PO Last administered on 12/15/18 08:50; Admin Dose 20 MG; Start 12/06/18 at 21:00 Morphine Sulfate (morphine) 2 mg DAILY PRN IV SEVERE PAIN LEVEL 7-10 Last administered on 12/12/18 13:04; Admin Dose 2 MG; Start 12/07/18 at 13:00 Polyethylene Glycol (Miralax) 17 gm DAILY PO Last administered on 12/13/18 08:34; Admin Dose 17 GM; Start 12/07/18 at 16:00 Docusate Sodium (Colace) 200 mg BID PO Last administered on 12/13/18 08:35; Admin Dose 200 MG; Start 12/07/18 at 21:00 Lactulose (Enulose) 20 gm DAILY PRN PO CONSTIPATION Last administered on 12/07/18 17:07; Admin Dose 20 GM; Start 12/07/18 at 16:00 [facility] 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 PRN XX WOUND CARE; Start 12/08/18 at 02:30 Vancomycin HCl 1.25 gm/Sodium Chloride 250 ml @ 83.333 mls/ hr Q8H IVPB Last administered on 12/15/18 13:21; Admin Dose 83.333 MLS/HR; Start 12/08/18 at 22:00 Multivitamins/ Minerals (Theragran-M) 1 tab DAILY PO Last administered on 12/15/18 08:49; Admin Dose 1 TAB; Start 12/09/18 at 09:00 Ascorbic Acid (Vitamin C) 500 mg BID PO Last administered on 12/15/18 08:49; Admin Dose 500 MG; Start 12/09/18 at 09:00 Zinc Sulfate (Zinc Sulfate) 220 mg DAILY PO Last administered on 12/15/18 08:49; Admin Dose 220 MG; Start 12/09/18 at 09:00 Ibuprofen (Motrin) 400 mg Q6H PRN PO MILD PAIN(1-3) OR TEMP>38C Last administered on 12/12/18 08:39; Admin Dose 400 MG; Start 12/10/18 at 21:00 Trimethoprim/ Sulfamethoxazole (Bactrim (Ds)) 1 tab DAILY PO Last administered on 12/15/18 08:49; Admin Dose 1 TAB; Start 12/12/18 at 12:00 Alteplase, Recombinant (Cathflo (Activase)) 2 mg MAY REPEAT X1 PRN CATHETER IF CATHETER REMAINS OCCULUDED Last administered on 12/12/18 18:04; Admin Dose 2 MG; Start 12/12/18 at 14:30 Acetaminophen/ Hydrocodone Bitart ([place] (5/325)) 1 tab Q4H PRN PO MODERATE PAIN LEVEL 4-6 Last administered on 7/18/19at 10:49; Admin Dose 1 TAB; Start 12/12/18 at 15:00 Fluconazole (Diflucan) 100 mg DAILY PO Last administered on 12/15/18at 08:49; Admin Dose 100 MG; Start 12/13/18 at 11:30 Azithromycin (Zithromax) 1,200 mg Q7D PO Last administered on 12/13/18at 17:58; Admin Dose 1,200 MG; Start 12/13/18 at 18:00 Meropenem/Sodium Chloride 50 ml @ 100 mls/hr Q8H IVPB Last administered on 12/15/18at 08:50; Admin Dose 100 MLS/HR; Start 12/13/18 at 17:00 Miscellaneous Information (*Rx Drug Level Order Reminder*) VANCOMYCIN TROUGH AT 2100 2100 ONCE XX ; Start 12/15/18 at 21:00; Stop 12/15/18 at 21:01 CRYSTAL TALAVERA NP Dec 15, 2018 15:03
--- NOTE | 2018-12-15 16:05 | PN ---
Date/Time of Note Date/Time of Note DATE: 12/15/18 TIME: 16:04 Assessment/Plan VTE Prophylaxis Risk score (from Nsg)>0 risk: 3 SCD applied (from Nsg): Yes Pharmacological prophylaxis: NA/contraindicated Pharm contraindication: low risk/ambulating Lines/Catheters IV Catheter Type (from Nrsg): [place]ine Lock Urinary Cath still in place: No Assessment/Plan Hospital Course 42 yo male with HIV/AIDS who presented with fourniers gangrene and necrotizing fasciitis of abdmoen - s/p I and D procedures per She Damon and Mela who are following. No plan for repeat procedures at this time though may eventually need a skin graft. We had considered transfer to tertiary center for hyperbaric oxygen therapy however it appears this will not be possible -government contracts manager attempting to transfer patient to [facility] - Wound care, wound vac - Abx per ID HIV/AIDS: - ARVs and ppx per ID Hyponatremia: - Urine studies suggested hypovolemia as etiology. Now improving Anemia: - Adequate iron stores. This is anemia of inflammation Dispo: Continue wound care, follow-up with transfer to [facility], follow- up with [facility] Result Diagram: 12/14/18 0536 12/14/18 0536 Subjective 24 Hr Interval Summary Constitutional: no complaints Exam/Review of Systems Exam Vitals Vital Signs Date Temp Pulse Resp B/P (MAP) Pulse Ox O2 O2 Flow FiO2 Time Delivery Rate 12/15/18 97.8 79 16 98/59 (72) 97 14:30 12/13/18 Room Air 14:00 Intake and Output 12/14/18 12/14/18 12/15/18 1414:59 22:59 06:59 IntakeIntake Total 1300 ml 800 ml 300 ml OutputOutput Total 2800 ml 450 ml 1850 ml BalanceBalance -1500 ml 350 ml -1550 ml Constitutional: alert Respiratory: clear to auscultation Cardiovascular: regular rate and rhythm Gastrointestinal: soft; No distended Musculoskeletal: nl extremities to inspection Medications Medication Current Medications Ondansetron HCl (Zofran Inj) 4 mg Q6H PRN IV NAUSEA AND/OR VOMITING Last administered on 12/11/18at 17:52; Admin Dose 4 MG; Start 11/30/18 at 21:00 Acetaminophen (Tylenol Liquid) 650 mg Q6H PRN PO PAIN LEVEL 1-3 OR FEVER Last administered on 12/14/18 01:51; Admin Dose 650 MG; Start 11/30/18 at 21:00 Vancomycin HCl (Vanco Iv Per Pharmacy) VANCOMYCIN PER PHARMACY PER PROTOCOL XX ; Start 11/30/18 at 21:00 Morphine Sulfate (morphine) 2 mg Q2H PRN IV MOD TO SEVERE PAIN Last administered on 12/15/18 09:48; Admin Dose 2 MG; Start 12/04/18 at 11:30 Emtricitabine/ Tenofovir (Truvada) 1 tab DAILY PO Last administered on 12/15/18 08:50; Admin Dose 1 TAB; Start 12/06/18 at 09:00 Lamivudine/ Zidovudine (Combivir) 1 tab BID PO Last administered on 12/15/18 08:49; Admin Dose 1 TAB; Start 12/06/18 at 09:00 Sodium Hypochlorite (Dakins Diluted (40)) 1 applic DAILY TP Last administered on 12/13/18 08:36; Admin Dose 1 APPLIC; Start 12/06/18 at 09:00 Prednisolone Acetate (Pred-Forte 1%) 1 drop DAILY LEFT EYE Last administered on 12/15/18 08:49; Admin Dose 1 DROP; Start 12/05/18 at 19:00 Atropine Sulfate (Atropine 1% Oph) 1 drop BID LEFT EYE Last administered on 12/15/18 08:49; Admin Dose 1 DROP; Start 12/07/18 at 21:00 Guaifenesin (Robitussin Liquid Cup) 100 mg Q4H PRN PO COUGH Last administered on 12/05/18 20:07; Admin Dose 100 MG; Start 12/05/18 at 19:00 Famotidine (Pepcid) 20 mg Q12 PO Last administered on 12/15/18 08:50; Admin Dose 20 MG; Start 12/06/18 at 21:00 Morphine Sulfate (morphine) 2 mg DAILY PRN IV SEVERE PAIN LEVEL 7-10 Last administered on 12/12/18 13:04; Admin Dose 2 MG; Start 12/07/18 at 13:00 Polyethylene Glycol (Miralax) 17 gm DAILY PO Last administered on 12/13/18 08:34; Admin Dose 17 GM; Start 12/07/18 at 16:00 Docusate Sodium (Colace) 200 mg BID PO Last administered on 12/13/18 08:35; Admin Dose 200 MG; Start 12/07/18 at 21:00 Lactulose (Enulose) 20 gm DAILY PRN PO CONSTIPATION Last administered on 12/07/18 17:07; Admin Dose 20 GM; Start 12/07/18 at 16:00 Miscellaneous Information (Pending Santyl Order For Wound Care) 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 PRN XX WOUND CARE; Start 12/08/18 at 02:30 Vancomycin HCl 1.25 gm/Sodium Chloride 250 ml @ 83.333 mls/ hr Q8H IVPB Last administered on 12/15/18 13:21; Admin Dose 83.333 MLS/HR; Start 12/08/18 at 22:00 Multivitamins/ Minerals (Theragran-M) 1 tab DAILY PO Last administered on 12/15/18 08:49; Admin Dose 1 TAB; Start 12/09/18 at 09:00 Ascorbic Acid (Vitamin C) 500 mg BID PO Last administered on 12/15/18 08:49; Admin Dose 500 MG; Start 12/09/18 at 09:00 Zinc Sulfate (Zinc Sulfate) 220 mg DAILY PO Last administered on 12/15/18 08:49; Admin Dose 220 MG; Start 12/09/18 at 09:00 Ibuprofen (Motrin) 400 mg Q6H PRN PO MILD PAIN(1-3) OR TEMP>38C Last administered on 12/12/18 08:39; Admin Dose 400 MG; Start 12/10/18 at 21:00 Trimethoprim/ Sulfamethoxazole (Bactrim (Ds)) 1 tab DAILY PO Last administered on 12/15/18 08:49; Admin Dose 1 TAB; Start 12/12/18 at 12:00 Alteplase, Recombinant (Cathflo (Activase)) 2 mg MAY REPEAT X1 PRN CATHETER IF CATHETER REMAINS OCCULUDED Last administered on 12/12/18 18:04; Admin Dose 2 MG; Start 12/12/18 at 14:30 Acetaminophen/ Hydrocodone Bitart ([place] (5/325)) 1 tab Q4H PRN PO MODERATE PAIN LEVEL 4-6 Last administered on 12/15/18 15:11; Admin Dose 1 TAB; Start at 15:00 Fluconazole (Diflucan) 100 mg DAILY PO Last administered on 12/15/18at 08:49; Admin Dose 100 MG; Start 12/13/18 at 11:30 Azithromycin (Zithromax) 1,200 mg Q7D PO Last administered on 12/13/18at 17:58; Admin Dose 1,200 MG; Start 12/13/18 at 18:00 Meropenem/Sodium Chloride 50 ml @ 100 mls/hr Q8H IVPB Last administered on 12/15/18at 08:50; Admin Dose 100 MLS/HR; Start 12/13/18 at 17:00 Miscellaneous Information (*Rx Drug Level Order Reminder*) VANCOMYCIN TROUGH AT 2100 2100 ONCE XX ; Start 12/15/18 at 21:00; Stop 12/15/18 at 21:01 LAITH MCKEON Dec 15, 2018 16:05
[2018-12-15 20:10] VITALS: BP 100/60; PULSE 85; RESP 18
[2018-12-15 22:10] VITALS: BP 102/56; PULSE 76; RESP 18
[2018-12-15] MEDS ORDERED: morphine 4 MG/ML VIAL IV ONE (22:10)
[2018-12-16] MEDS: MEROPENEM 1 GM/50ML(PMX) 50 ML IVPB SCH ×3 (00:19→16:37)
[2018-12-16] MEDS: HYDROCODONE/APAP (5/325) TAB PO PRN ×3 (00:19→22:32)
[2018-12-16 02:05] VITALS: BP 100/58; PULSE 78; RESP 18
[2018-12-16] MEDS: VANCOMYCIN HCL 1.25 GM in SOD CHLORIDE 0.9% 250 ML IVPB SCH ×3 (06:25→22:34)
[2018-12-16] MEDS: morphine 2 MG INJ IV PRN ×5 (06:31→21:12)
[2018-12-16 07:25] VITALS: BP 100/63; PULSE 85; RESP 16
--- NOTE | 2018-12-16 08:25 | CONS ---
Consult Date/Type/Reason Admit Date/Time Nov 30, 2018 at 20:47 Initial Consult Date 12/02/18 Type of Consultation: Urology Reason for Consultation Nida gangrene and necrotizing fasciitis Requesting Provider: ROBIN TAVAREZ MD Date/Time of Note DATE: 12/16/18 TIME: 08:23 Subjective Patient is feeling better. He has a lot of pain when the packing is replaced Objective Vitals Vital Signs Date Temp Pulse Resp B/P (MAP) Pulse Ox O2 O2 Flow FiO2 Time Delivery Rate 12/16/18 98.4 85 16 100/63 97 Room Air 07:25 (75) Intake and Output 12/15/18 12/15/18 12/16/18 1515:00 23:00 07:00 IntakeIntake Total 830 ml 780 ml 780 ml OutputOutput Total 275 ml 1720 ml 500 ml BalanceBalance 555 ml -940 ml 280 ml Exam The wounds are covered and the packing is intact. Results/Medications Result Diagram: 12/14/18 0536 12/16/18 0546 Results 24 hrs Laboratory Tests Test 12/15/18 20:38 12/16/18 05:46 Vancomycin Level Trough 13.5 Blood Urea Nitrogen 11 Creatinine 0.54 L Home Meds Reported Medications Atropine Sulfate/0.9 %Sod Chlr (Atropine 0.01%-Ns Eye Drops) 10 Ml Drops, 1 ML OP BID, #1 12/05/18 Prednisolone Acetate* (Pred Forte*) 5 Ml Susp, 1 DROP LEFT EYE Q1HOUR, EA 12/04/18 Medications Current Medications Ondansetron HCl (Zofran Inj) 4 mg Q6H PRN IV NAUSEA AND/OR VOMITING Last administered on 12/11/18at 17:52; Admin Dose 4 MG; Start 11/30/18 at 21:00 Acetaminophen (Tylenol Liquid) 650 mg Q6H PRN PO PAIN LEVEL 1-3 OR FEVER Last administered on 12/14/18at 01:51; Admin Dose 650 MG; Start 11/30/18 at 21:00 Vancomycin HCl (Vanco Iv Per Pharmacy) VANCOMYCIN PER PHARMACY PER PROTOCOL XX ; Start 11/30/18 at 21:00 Morphine Sulfate (morphine) 2 mg Q2H PRN IV MOD TO SEVERE PAIN Last administered on 12/16/18at 06:31; Admin Dose 2 MG; Start 12/04/18 at 11:30 Emtricitabine/ Tenofovir (Truvada) 1 tab DAILY PO Last administered on 12/15/18 08:50; Admin Dose 1 TAB; Start 12/06/18 at 09:00 Lamivudine/ Zidovudine (Combivir) 1 tab BID PO Last administered on 12/15/18 20:39; Admin Dose 1 TAB; Start 12/06/18 at 09:00 Sodium Hypochlorite (Dakins Diluted ()) 1 applic DAILY TP Last administered on 12/13/18 08:36; Admin Dose 1 APPLIC; Start 12/06/18 at 09:00 Prednisolone Acetate (Pred-Forte 1%) 1 drop DAILY LEFT EYE Last administered on 12/15/18 08:49; Admin Dose 1 DROP; Start 12/05/18 at 19:00 Atropine Sulfate (Atropine 1% Oph) 1 drop BID LEFT EYE Last administered on 12/15/18 20:39; Admin Dose 1 DROP; Start 12/07/18 at 21:00 Guaifenesin (Robitussin Liquid Cup) 100 mg Q4H PRN PO COUGH Last administered on 12/05/18 20:07; Admin Dose 100 MG; Start 12/05/18 at 19:00 Famotidine (Pepcid) 20 mg Q12 PO Last administered on 12/15/18 20:39; Admin Dose 20 MG; Start 12/06/18 at 21:00 Morphine Sulfate (morphine) 2 mg DAILY PRN IV SEVERE PAIN LEVEL 7-10 Last administered on 12/12/18 13:04; Admin Dose 2 MG; Start 12/07/18 at 13:00 Polyethylene Glycol (Miralax) 17 gm DAILY PO Last administered on 12/13/18 08:34; Admin Dose 17 GM; Start 12/07/18 at 16:00 Docusate Sodium (Colace) 200 mg BID PO Last administered on 12/13/18 08:35; Admin Dose 200 MG; Start 12/07/18 at 21:00 Lactulose (Enulose) 20 gm DAILY PRN PO CONSTIPATION Last administered on 12/07/18 17:07; Admin Dose 20 GM; Start 12/07/18 at 16:00 Miscellaneous Information (Pending [facility] Order For Wound Care) 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 PRN XX WOUND CARE; Start 12/08/18 at 02:30 Vancomycin HCl 1.25 gm/Sodium Chloride 250 ml @ 83.333 mls/ hr Q8H IVPB Last administered on 12/16/18 06:25; Admin Dose 83.333 MLS/HR; Start 12/08/18 at 22:00 Multivitamins/ Minerals (Theragran-M) 1 tab DAILY PO Last administered on 12/15/18 08:49; Admin Dose 1 TAB; Start 12/09/18 at 09:00 Ascorbic Acid (Vitamin C) 500 mg BID PO Last administered on 12/15/18 20:39; Admin Dose 500 MG; Start 12/09/18 at 09:00 Zinc Sulfate (Zinc Sulfate) 220 mg DAILY PO Last administered on 12/15/18 08:49; Admin Dose 220 MG; Start 12/09/18 at 09:00 Ibuprofen (Motrin) 400 mg Q6H PRN PO MILD PAIN(1-3) OR TEMP>38C Last administered on 12/12/18 08:39; Admin Dose 400 MG; Start 12/10/18 at 21:00 Trimethoprim/ Sulfamethoxazole (Bactrim (Ds)) 1 tab DAILY PO Last administered on 12/15/18 08:49; Admin Dose 1 TAB; Start 12/12/18 at 12:00 Alteplase, Recombinant (Cathflo (Activase)) 2 mg MAY REPEAT X1 PRN CATHETER IF CATHETER REMAINS OCCULUDED Last administered on 12/12/18at 18:04; Admin Dose 2 MG; Start 12/12/18 at 14:30 Acetaminophen/ Hydrocodone Bitart ([place] (5/325)) 1 tab Q4H PRN PO MODERATE PAIN LEVEL 4-6 Last administered on 12/16/18 00:19; Admin Dose 1 TAB; Start 12/12/18 at 15:00 Fluconazole (Diflucan) 100 mg DAILY PO Last administered on 12/15/18 08:49; Admin Dose 100 MG; Start 12/13/18 at 11:30 Azithromycin (Zithromax) 1,200 mg Q7D PO Last administered on 12/13/18 17:58; Admin Dose 1,200 MG; Start 12/13/18 at 18:00 Meropenem/Sodium Chloride 50 ml @ 100 mls/hr Q8H IVPB Last administered on 12/16/18at 00:19; Admin Dose 100 MLS/HR; Start 12/13/18 at 17:00 Assessment/Plan Hospital Course (Demo Recall) 42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 He underwent incision and drainage of the abdominal wall all the way up to the lower ribs on the left side and also of the left thigh and right inguinal area and debridement of the scrotum and perineal area. The wounds are getting better. He underwent debridement and incision and drainage of a right buttock abscess. The culture from the buttock grew MRSA. He is doing better. His CBC showed a normal white count. At this stage the patient will need plastic surgery consultation and the case briefer has been working on that either to have a plastic surgeon see him here or transfer him to a facility where they can do the skin graft for him. GWEN BUCK MD Dec 16, 2018 08:25
[2018-12-16] MEDS: POLYETHYLENE GLYCOL 17 GM PACKET PO SCH (09:00)
[2018-12-16] MEDS: DOCUSATE SODIUM 100 MG CAP PO SCH ×2 (09:00→21:00)
[2018-12-16] MEDS: PREDNISOLONE ACET 1% 5 ML OPH LEFT EYE SCH (09:33)
[2018-12-16] MEDS: ATROPINE 1% 5 ML OPH LEFT EYE SCH ×2 (09:33→21:11)
[2018-12-16] MEDS: MULTIVITAMINS/MINERALS TAB PO SCH (09:34)
[2018-12-16] MEDS: LAMIVUDINE/ZIDOVUDINE TAB PO SCH ×2 (09:34→21:10)
[2018-12-16] MEDS: EMTRICITABINE/TENOFOVIR TAB PO SCH (09:34)
[2018-12-16] MEDS: FLUCONAZOLE 100 MG TAB PO SCH (09:34)
[2018-12-16] MEDS: FAMOTIDINE 20 MG TAB PO SCH ×2 (09:34→21:11)
[2018-12-16] MEDS: ASCORBIC ACID 500 MG TAB PO SCH ×2 (09:34→21:10)
[2018-12-16] MEDS: TRIMETHOPRIM/SULFAMETHOX (DS) TAB PO SCH (09:34)
[2018-12-16] MEDS: ZINC SULFATE 220 MG CAP PO SCH (09:34)
[2018-12-16] MEDS: DAKINS 0.0125%(1/40) 473 ML SOLUTION TP SCH (09:35)
--- NOTE | 2018-12-16 10:49 | CONS ---
Assessment/Plan Assessment/Plan Hospital Course (Demo Recall) No fevers, looks comfortable Indwelling: PIV Microbiology: Wound culture grew MRSA, repeat cx + Kleb, E coli, MRSA Antimicrobials: Vancomycin, Merrem, Truvada, Combivir, Diflucan, Bactrim, Zi thromax Physical examination: Well-developed well-nourished middle-aged man who is alert in no distress. Head atraumatic normocephalic sclera nonicteric neck is supple chest rise symmetrical breath sounds clear heart: S1-S2 abdomen soft bowel sounds present extremities without cyanosis. Skin: Patient has dressing over his left side of the abdomen and bilateral wound vacs to hips Assessment: 1. S/p ongoing fevers==> resolved after PICC dc'd 2. Fornier's gangrene and necrotizing fasciitis, status post multiple recurrent debridement ==> latest one on 12/08/18 by urology 3. AIDS===> CD4 12/13 143 4. Status post renal failure Plan: Stable, continue abx, wound care per surgery and urology, may need plastic surgery eval Consultation Date/Type/Reason Admit Date/Time Nov 30, 2018 at 20:47 Initial Consult Date 12/02/18 Type of Consult id Requesting Provider: ROBIN TAVAREZ MD Date/Time of Note DATE: 12/16/18 TIME: 10:48 Exam/Review of Systems Exam Vitals Vital Signs Date Temp Pulse Resp B/P (MAP) Pulse Ox O2 O2 Flow FiO2 Time Delivery Rate 12/16/18 98.4 85 16 100/63 97 Room Air 07:25 (75) Intake and Output 12/15/18 12/15/18 12/16/18 1515:00 23:00 07:00 IntakeIntake Total 830 ml 780 ml 780 ml OutputOutput Total 275 ml 1720 ml 500 ml BalanceBalance 555 ml -940 ml 280 ml Results Result Diagram: 12/14/18 0536 12/16/18 0546 Results 24hrs Laboratory Tests Test 12/15/18 20:38 12/16/18 05:46 Vancomycin Level Trough 13.5 Blood Urea Nitrogen 11 Creatinine 0.54 L Medications Medication Current Medications Ondansetron HCl (Zofran Inj) 4 mg Q6H PRN IV NAUSEA AND/OR VOMITING Last administered on 12/11/18 17:52; Admin Dose 4 MG; Start 11/30/18 at 21:00 Acetaminophen (Tylenol Liquid) 650 mg Q6H PRN PO PAIN LEVEL 1-3 OR FEVER Last administered on 12/14/18 01:51; Admin Dose 650 MG; Start 11/30/18 at 21:00 Vancomycin HCl (Vanco Iv Per Pharmacy) VANCOMYCIN PER PHARMACY PER PROTOCOL XX ; Start 11/30/18 at 21:00 Morphine Sulfate (morphine) 2 mg Q2H PRN IV MOD TO SEVERE PAIN Last administered on 12/16/18 09:45; Admin Dose 2 MG; Start 12/04/18 at 11:30 Emtricitabine/ Tenofovir (Truvada) 1 tab DAILY PO Last administered on 12/16 09:34; Admin Dose 1 TAB; Start 12/06/18 at 09:00 Lamivudine/ Zidovudine (Combivir) 1 tab BID PO Last administered on 12/16/18 09:34; Admin Dose 1 TAB; Start 12/06/18 at 09:00 Sodium Hypochlorite (Dakins Diluted (140)) 1 applic DAILY TP Last administered on 12/16/18 09:35; Admin Dose 1 APPLIC; Start 12/06/18 at 09:00 Prednisolone Acetate (Pred-Forte 1%) 1 drop DAILY LEFT EYE Last administered on 12/16/18 09:33; Admin Dose 1 DROP; Start 12/05/18 at 19:00 Atropine Sulfate (Atropine 1% Oph) 1 drop BID LEFT EYE Last administered on 12/16/18 09:33; Admin Dose 1 DROP; Start 12/07/18 at 21:00 Guaifenesin (Robitussin Liquid Cup) 100 mg Q4H PRN PO COUGH Last administered on 12/05/18 20:07; Admin Dose 100 MG; Start 12/05/18 at 19:00 Famotidine (Pepcid) 20 mg Q12 PO Last administered on 12/16/18 09:34; Admin Dose 20 MG; Start 12/06/18 at 21:00 Morphine Sulfate (morphine) 2 mg DAILY PRN IV SEVERE PAIN LEVEL 7-10 Last administered on 12/12/18 13:04; Admin Dose 2 MG; Start 12/07/18 at 13:00 Polyethylene Glycol (Miralax) 17 gm DAILY PO Last administered on 12/13/18 08:34; Admin Dose 17 GM; Start 12/07/18 at 16:00 Docusate Sodium (Colace) 200 mg BID PO Last administered on 12/13/18 08:35; Admin Dose 200 MG; Start 12/07/18 at 21:00 Lactulose (Enulose) 20 gm DAILY PRN PO CONSTIPATION Last administered on 12/07/18 17:07; Admin Dose 20 GM; Start 12/07/18 at 16:00 Miscellaneous Information (Pending Santyl Order For Wound Care) 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 PRN XX WOUND CARE; Start 12/08/18 at 02:30 Vancomycin HCl 1.25 gm/Sodium Chloride 250 ml @ 83.333 mls/ hr Q8H IVPB Last administered on 12/16/18 06:25; Admin Dose 83.333 MLS/HR; Start 12/08/18 at 22:00 Multivitamins/ Minerals (Theragran-M) 1 tab DAILY PO Last administered on 12/16/18 09:34; Admin Dose 1 TAB; Start 12/09/18 at 09:00 Ascorbic Acid (Vitamin C) 500 mg BID PO Last administered on 12/16/18 09:34; Admin Dose 500 MG; Start 12/09/18 at 09:00 Zinc Sulfate (Zinc Sulfate) 220 mg DAILY PO Last administered on 12/16/18 09:34; Admin Dose 220 MG; Start 12/09/18 at 09:00 Ibuprofen (Motrin) 400 mg Q6H PRN PO MILD PAIN(1-3) OR TEMP>38C Last administered on 12/12/18 08:39; Admin Dose 400 MG; Start 12/10/18 at 21:00 Trimethoprim/ Sulfamethoxazole (Bactrim (Ds)) 1 tab DAILY PO Last administered on 12/16/18 09:34; Admin Dose 1 TAB; Start 12/12/18 at 12:00 Alteplase, Recombinant (Cathflo (Activase)) 2 mg MAY REPEAT X1 PRN CATHETER IF CATHETER REMAINS OCCULUDED Last administered on 12/12/18at 18:04; Admin Dose 2 MG; Start 12/12/18 at 14:30 Acetaminophen/ Hydrocodone Bitart ([place] (5/325)) 1 tab Q4H PRN PO MODERATE PAIN LEVEL 4-6 Last administered on 12/16/18at 00:19; Admin Dose 1 TAB; Start 12/12/18 at 15:00 Fluconazole (Diflucan) 100 mg DAILY PO Last administered on 12/16/18at 09:34; Admin Dose 100 MG; Start 12/13/18 at 11:30 Azithromycin (Zithromax) 1,200 mg Q7D PO Last administered on 12/13/18at 17:58; Admin Dose 1,200 MG; Start 12/13/18 at 18:00 Meropenem/Sodium Chloride 50 ml @ 100 mls/hr Q8H IVPB Last administered on 12/16/18at 09:33; Admin Dose 100 MLS/HR; Start 12/13/18 at 17:00 CRYSTAL TALAVERA NP Dec 16, 2018 10:49
--- NOTE | 2018-12-16 14:27 | PN ---
Date/Time of Note Date/Time of Note DATE: 12/16/18 TIME: 14:27 Assessment/Plan VTE Prophylaxis Risk score (from Ns)>0 risk: 4 SCD applied (from Ns): Yes Pharmacological prophylaxis: NA/contraindicated Pharm contraindication: other Lines/Catheters IV Catheter Type (from Nrsg): Saline Lock Urinary Cath still in place: No Assessment/Plan Hospital Course 42 yo male with HIV/AIDS who presented with fourniers gangrene and necrotizing fasciitis of abdmoen - s/p I and D procedures per She Damon and Mela who are following. No plan for repeat procedures at this time though may eventually need a skin graft. We had considered transfer to tertiary center for hyperbaric oxygen therapy however it appears this will not be possible -civil engineering project manager attempting to transfer patient to [facility] - Wound care, wound vac - Abx per ID HIV/AIDS: - ARVs and ppx per ID Hyponatremia: - Urine studies suggested hypovolemia as etiology. Now improving Anemia: - Adequate iron stores. This is anemia of inflammation Dispo: Continue wound care, follow-up with transfer to [facility], follow- up with [facility] Result Diagram: 12/14/18 0536 12/16/18 0546 Results 24hrs Laboratory Tests Test 12/15/18 20:38 12/16/18 05:46 Vancomycin Level Trough 13.5 Blood Urea Nitrogen 11 Creatinine 0.54 L Subjective 24 Hr Interval Summary Constitutional: no complaints Exam/Review of Systems Exam Vitals Vital Signs Date Temp Pulse Resp B/P (MAP) Pulse Ox O2 O2 Flow FiO2 Time Delivery Rate 12/16/18 98.4 85 16 100/63 97 Room Air 07:25 (75) Intake and Output 12/15/18 12/15/18 12/16/18 1515:00 23:00 07:00 IntakeIntake Total 830 ml 780 ml 780 ml OutputOutput Total 275 ml 1720 ml 500 ml BalanceBalance 555 ml -940 ml 280 ml Constitutional: alert Respiratory: clear to auscultation Cardiovascular: regular rate and rhythm Gastrointestinal: soft; No distended Musculoskeletal: nl extremities to inspection Results Results 24hrs Laboratory Tests Test 12/15/18 20:38 12/16/18 05:46 Vancomycin Level Trough 13.5 Blood Urea Nitrogen 11 Creatinine 0.54 L Medications Medication Current Medications Ondansetron HCl (Zofran Inj) 4 mg Q6H PRN IV NAUSEA AND/OR VOMITING Last administered on 12/11/18 17:52; Admin Dose 4 MG; Start 11/30/18 at 21:00 Acetaminophen (Tylenol Liquid) 650 mg Q6H PRN PO PAIN LEVEL 1-3 OR FEVER Last administered on 12/14/18 01:51; Admin Dose 650 MG; Start 11/30/18 at 21:00 Vancomycin HCl (Vanco Iv Per Pharmacy) VANCOMYCIN PER PHARMACY PER PROTOCOL XX ; Start 11/30/18 at 21:00 Morphine Sulfate (morphine) 2 mg Q2H PRN IV MOD TO SEVERE PAIN Last administered on 12/16/18 14:14; Admin Dose 2 MG; Start 12/04/18 at 11:30 Emtricitabine/ Tenofovir (Truvada) 1 tab DAILY PO Last administered on 12/16/18 09:34; Admin Dose 1 TAB; Start 12/06/18 at 09:00 Lamivudine/ Zidovudine (Combivir) 1 tab BID PO Last administered on 12/16/18 09:34; Admin Dose 1 TAB; Start 12/06/18 at 09:00 Sodium Hypochlorite (Dakins Diluted (1/40)) 1 applic DAILY TP Last administered on 12/16/18 09:35; Admin Dose 1 APPLIC; Start 12/06/18 at 09:00 Prednisolone Acetate (Pred-Forte 1%) 1 drop DAILY LEFT EYE Last administered on 12/16/18 09:33; Admin Dose 1 DROP; Start 12/05/18 at 19:00 Atropine Sulfate (Atropine 1% Oph) 1 drop BID LEFT EYE Last administered on 12/16/18 09:33; Admin Dose 1 DROP; Start 12/07/18 at 21:00 Guaifenesin (Robitussin Liquid Cup) 100 mg Q4H PRN PO COUGH Last administered on 12/05/18 20:07; Admin Dose 100 MG; Start 12/05/18 at 19:00 Famotidine (Pepcid) 20 mg Q12 PO Last administered on 12/16/18 09:34; Admin Dose 20 MG; Start 12/06/18 at 21:00 Morphine Sulfate (morphine) 2 mg DAILY PRN IV SEVERE PAIN LEVEL 7-10 Last administered on 12/12/18 13:04; Admin Dose 2 MG; Start 12/07/18 at 13:00 Polyethylene Glycol (Miralax) 17 gm DAILY PO Last administered on 12/13/18 08:34; Admin Dose 17 GM; Start 12/07/18 at 16:00 Docusate Sodium (Colace) 200 mg BID PO Last administered on 12/13/18 08:35; Admin Dose 200 MG; Start 12/07/18 at 21:00 Lactulose (Enulose) 20 gm DAILY PRN PO CONSTIPATION Last administered on 12/07/18 17:07; Admin Dose 20 GM; Start 12/07/18 at 16:00 Miscellaneous Information (Pending Santyl Order For Wound Care) 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 PRN XX WOUND CARE; Start 12/08/18 at 02:30 Vancomycin HCl 1.25 gm/Sodium Chloride 250 ml @ 83.333 mls/ hr Q8H IVPB Last administered on 12/16/18 13:18; Admin Dose 83.333 MLS/HR; Start 12/08/18 at 22:00 Multivitamins/ Minerals (Theragran-M) 1 tab DAILY PO Last administered on 12/16/18 09:34; Admin Dose 1 TAB; Start 12/09/18 at 09:00 Ascorbic Acid (Vitamin C) 500 mg BID PO Last administered on 12/16/18 09:34; Admin Dose 500 MG; Start 12/09/18 at 09:00 Zinc Sulfate (Zinc Sulfate) 220 mg DAILY PO Last administered on 12/16/18 09:34; Admin Dose 220 MG; Start 12/09/18 at 09:00 Ibuprofen (Motrin) 400 mg Q6H PRN PO MILD PAIN(1-3) OR TEMP>38C Last administered on 12/12/18 08:39; Admin Dose 400 MG; Start 12/10/18 at 21:00 Trimethoprim/ Sulfamethoxazole (Bactrim (Ds)) 1 tab DAILY PO Last administered on 12/16/18 09:34; Admin Dose 1 TAB; Start 12/12/18 at 12:00 Alteplase, Recombinant (Cathflo (Activase)) 2 mg MAY REPEAT X1 PRN CATHETER IF CATHETER REMAINS OCCULUDED Last administered on 12/12/18 18:04; Admin Dose 2 MG; Start 12/12/18 at 14:30 Acetaminophen/ Hydrocodone Bitart ([place] (5/325)) 1 tab Q4H PRN PO MODERATE PAIN LEVEL 4-6 Last administered on 12/16/18 13:25; Admin Dose 1 TAB; Start 12/12/18 at 15:00 Fluconazole (Diflucan) 100 mg DAILY PO Last administered on 12/16/18 09:34; Admin Dose 100 MG; Start 12/13/18 at 11:30 Azithromycin (Zithromax) 1,200 mg Q7D PO Last administered on 12/13/18at 17:58; Admin Dose 1,200 MG; Start 12/13/18 at 18:00 Meropenem/Sodium Chloride 50 ml @ 100 mls/hr Q8H IVPB Last administered on 12/16/18 09:33; Admin Dose 100 MLS/HR; Start 12/13/18 at 17:00 LAITH MCKEON Dec 16, 2018 14:27
[2018-12-16] MEDS ORDERED: morphine 2 MG INJ IV STA (15:01)
[2018-12-16 20:05] VITALS: BP 99/64; PULSE 75; RESP 18
--- NOTE | 2018-12-16 23:15 | CONS ---
Consult Date/Type/Reason Admit Date/Time Nov 30, 2018 at 20:47 Initial Consult Date 12/02/18 Type of Consultation: Urology Requesting Provider: ROBIN TAVAREZ MD Date/Time of Note DATE: 12/16/18 TIME: 23:14 Subjective no co. awaiting placement. POD #7 I&D scrotum / penile, perianal site, on contact isolation for mrsa of scrotum. wound vac HEENT: Head is normocephalic. NECK: Supple. HEART: Regular rate. LUNGS: Show diminished breath sounds at the base. ABDOMEN: Soft, nontender to palpation without rebound or guarding. EXTREMITIES: Negative for clubbing, cyanosis, no edema. MUSCULOSKELETAL: The patient's chest exam has dressing over his left chest, clean, dry, intact. GENITOURINARY: The patient's exam has a dressing clean, dry, intact. NEUROLOGIC: No focal deficits. Objective Vitals Vital Signs Date Temp Pulse Resp B/P (MAP) Pulse Ox O2 O2 Flow FiO2 Time Delivery Rate 12/16/18 98.1 75 18 99/64 (76) 98 20:05 12/16/18 Room Air 07:25 Intake and Output 12/15/18 12/15/18 12/16/18 1515:00 23:00 07:00 IntakeIntake Total 830 ml 780 ml 780 ml OutputOutput Total 275 ml 1720 ml 500 ml BalanceBalance 555 ml -940 ml 280 ml Results/Medications Result Diagram: 12/14/18 0536 12/16/18 0546 Results 24 hrs Laboratory Tests Test 12/16/18 05:46 Blood Urea Nitrogen 11 Creatinine 0.54 L Home Meds Reported Medications Atropine Sulfate/0.9 %Sod Chlr (Atropine 0.01%-Ns Eye Drops) 10 Ml Drops, 1 ML OP BID, #1 12/05/18 Prednisolone Acetate* (Pred Forte*) 5 Ml Susp, 1 DROP LEFT EYE Q1HOUR, EA 12/04/18 Medications Current Medications Ondansetron HCl (Zofran Inj) 4 mg Q6H PRN IV NAUSEA AND/OR VOMITING Last administered on 12/11/18at 17:52; Admin Dose 4 MG; Start 11/30/18 at 21:00 Acetaminophen (Tylenol Liquid) 650 mg Q6H PRN PO PAIN LEVEL 1-3 OR FEVER Last administered on 12/14/18 01:51; Admin Dose 650 MG; Start 11/30/18 at 21:00 Vancomycin HCl (Vanco Iv Per Pharmacy) VANCOMYCIN PER PHARMACY PER PROTOCOL XX ; Start 11/30/18 at 21:00 Morphine Sulfate (morphine) 2 mg Q2H PRN IV MOD TO SEVERE PAIN Last administered on 12/16/18 21:12; Admin Dose 2 MG; Start 12/04/18 at 11:30 Emtricitabine/ Tenofovir (Truvada) 1 tab DAILY PO Last administered on 12/16/18 09:34; Admin Dose 1 TAB; Start 12/06/18 at 09:00 Lamivudine/ Zidovudine (Combivir) 1 tab BID PO Last administered on 12/16/18 21:10; Admin Dose 1 TAB; Start 12/06/18 at 09:00 Sodium Hypochlorite (Dakins Diluted (40)) 1 applic DAILY TP Last administered on 12/16/18 09:35; Admin Dose 1 APPLIC; Start 12/06/18 at 09:00 Prednisolone Acetate (Pred-Forte 1%) 1 drop DAILY LEFT EYE Last administered on 12/16/18 09:33; Admin Dose 1 DROP; Start 12/05/18 at 19:00 Atropine Sulfate (Atropine 1% Oph) 1 drop BID LEFT EYE Last administered on 12/16/18 21:11; Admin Dose 1 DROP; Start 12/07/18 at 21:00 Guaifenesin (Robitussin Liquid Cup) 100 mg Q4H PRN PO COUGH Last administered on 12/05/18 20:07; Admin Dose 100 MG; Start 12/05/18 at 19:00 Famotidine (Pepcid) 20 mg Q12 PO Last administered on 12/16/18 21:11; Admin Dose 20 MG; Start 12/06/18 at 21:00 Morphine Sulfate (morphine) 2 mg DAILY PRN IV SEVERE PAIN LEVEL 7-10 Last admin istered on 12/12/18 13:04; Admin Dose 2 MG; Start 12/07/18 at 13:00 Polyethylene Glycol (Miralax) 17 gm DAILY PO Last administered on 12/13/18 08:34; Admin Dose 17 GM; Start 12/07/18 at 16:00 Docusate Sodium (Colace) 200 mg BID PO Last administered on 12/13/18 08:35; Admin Dose 200 MG; Start 12/07/18 at 21:00 Lactulose (Enulose) 20 gm DAILY PRN PO CONSTIPATION Last administered on 12/07/18 17:07; Admin Dose 20 GM; Start 12/07/18 at 16:00 Miscellaneous Information (Pending Santyl Order For Wound Care) 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 PRN XX WOUND CARE; Start 12/08/18 at 02:30 Vancomycin HCl 1.25 gm/Sodium Chloride 250 ml @ 83.333 mls/ hr Q8H IVPB Last administered on 12/16/18 22:34; Admin Dose 83.333 MLS/HR; Start 12/08/18 at 22:00 Multivitamins/ Minerals (Theragran-M) 1 tab DAILY PO Last administered on 12/16/18 09:34; Admin Dose 1 TAB; Start 12/09/18 at 09:00 Ascorbic Acid (Vitamin C) 500 mg BID PO Last administered on 12/16/18 21:10; Admin Dose 500 MG; Start 12/09/18 at 09:00 Zinc Sulfate (Zinc Sulfate) 220 mg DAILY PO Last administered on 12/16/18 09:34; Admin Dose 220 MG; Start 12/09/18 at 09:00 Ibuprofen (Motrin) 400 mg Q6H PRN PO MILD PAIN(1-3) OR TEMP>38C Last admini stered on 12/12/18 08:39; Admin Dose 400 MG; Start 12/10/18 at 21:00 Trimethoprim/ Sulfamethoxazole (Bactrim (Ds)) 1 tab DAILY PO Last administered on 12/16/18 09:34; Admin Dose 1 TAB; Start 12/12/18 at 12:00 Alteplase, Recombinant (Cathflo (Activase)) 2 mg MAY REPEAT X1 PRN CATHETER IF CATHETER REMAINS OCCULUDED Last administered on 12/12/18 18:04; Admin Dose 2 MG; Start 12/12/18 at 14:30 Acetaminophen/ Hydrocodone Bitart ([place] (5/325)) 1 tab Q4H PRN PO MODERATE PAIN LEVEL 4-6 Last administered on 12/16/18 22:32; Admin Dose 1 TAB; Start 12/12/18 at 15:00 Fluconazole (Diflucan) 100 mg DAILY PO Last administered on 12/16/18at 09:34; Admin Dose 100 MG; Start 12/13/18 at 11:30 Azithromycin (Zithromax) 1,200 mg Q7D PO Last administered on 12/13/18at 17:58; Admin Dose 1,200 MG; Start 12/13/18 at 18:00 Meropenem/Sodium Chloride 50 ml @ 100 mls/hr Q8H IVPB Last administered on 12/16/18at 16:37; Admin Dose 100 MLS/HR; Start 12/13/18 at 17:00 Morphine Sulfate (morphine) 4 mg DAILY PRN IV SEVERE PAIN LEVEL 7-10; Start 12/16/18 at 15:30 Assessment/Plan Hospital Course (Demo Recall) 1. Nonoliguric acute kidney injury. Etiology is secondary to hemodynamics. Renal function is improved. Continue to monitor. 2. Hyponatremia. 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 Continue to monitor sodium levels. improved with some fluctuation. no indication for hypertonic saline. no new labs this am. 3. Anemia/ leucopenia. Continue to monitor and hematocrit levels. 4. Fevers- persistent. 5. 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 6. Fasciitis. The patient is status post multiple debridements, status post incision and drainage of perineal and penile region. Continue current antibiotic regimen, dressing changes, follow up with urology. may need skin graft. 7. Status post respiratory failure. 8. Encephalopathy, resolved 9. History of human immunodeficiency virus. Continue to monitor. 10. History of hepatitis. 11. hypotension- bp better sp bolus. generally low. consider adrenal insufficiency. TRINITY POLO MD Dec 16, 2018 23:15
[2018-12-17] MEDS: morphine 2 MG INJ IV PRN ×7 (01:00→21:28)
[2018-12-17 02:05] VITALS: BP 89/52; PULSE 78; RESP 18
[2018-12-17] MEDS: MEROPENEM 1 GM/50ML(PMX) 50 ML IVPB SCH ×3 (02:09→16:56)
[2018-12-17 03:15] VITALS: BP 92/57; PULSE 85; RESP 18
[2018-12-17] MEDS: VANCOMYCIN HCL 1.25 GM in SOD CHLORIDE 0.9% 250 ML IVPB SCH ×3 (05:37→21:26)
[2018-12-17 08:18] VITALS: BP 98/59; PULSE 86; RESP 19
[2018-12-17] MEDS: POLYETHYLENE GLYCOL 17 GM PACKET PO SCH (09:00)
[2018-12-17] MEDS: DOCUSATE SODIUM 100 MG CAP PO SCH ×2 (09:00→21:00)
[2018-12-17] MEDS: ATROPINE 1% 5 ML OPH LEFT EYE SCH ×2 (09:39→21:26)
[2018-12-17] MEDS: PREDNISOLONE ACET 1% 5 ML OPH LEFT EYE SCH (09:39)
[2018-12-17] MEDS: FLUCONAZOLE 100 MG TAB PO SCH (09:40)
[2018-12-17] MEDS: TRIMETHOPRIM/SULFAMETHOX (DS) TAB PO SCH (09:40)
[2018-12-17] MEDS: ZINC SULFATE 220 MG CAP PO SCH (09:40)
[2018-12-17] MEDS: FAMOTIDINE 20 MG TAB PO SCH ×2 (09:40→21:26)
[2018-12-17] MEDS: LAMIVUDINE/ZIDOVUDINE TAB PO SCH ×2 (09:40→21:26)
[2018-12-17] MEDS: EMTRICITABINE/TENOFOVIR TAB PO SCH (09:40)
[2018-12-17] MEDS: ASCORBIC ACID 500 MG TAB PO SCH ×2 (09:40→21:26)
[2018-12-17] MEDS: MULTIVITAMINS/MINERALS TAB PO SCH (09:40)
[2018-12-17] MEDS: DAKINS 0.0125%(1/40) 473 ML SOLUTION TP SCH (09:42)
--- NOTE | 2018-12-17 10:57 | CONS ---
Consult Date/Type/Reason Admit Date/Time Nov 30, 2018 at 20:47 Initial Consult Date 12/02/18 Type of Consultation: Urology Reason for Consultation Nida gangrene and necrotizing fasciitis Requesting Provider: ROBIN TAVAREZ MD Date/Time of Note DATE: 12/17/18 TIME: 10:56 Subjective Patient is feeling better Objective Vitals Vital Signs Date Temp Pulse Resp B/P (MAP) Pulse Ox O2 O2 Flow FiO2 Time Delivery Rate 12/17/18 98.3 86 19 98/59 (72) 97 Room Air 08:18 Intake and Output 12/16/18 12/16/18 12/17/18 1515:00 23:00 07:00 IntakeIntake Total 1960 ml 1140 ml 1300 ml OutputOutput Total 1700 ml 900 ml 725 ml BalanceBalance 260 ml 240 ml 575 ml Exam Packing is being changed by the nurses. No reports of any problem Results/Medications Result Diagram: 12/14/18 0536 12/16/18 0546 Home Meds Reported Medications Atropine Sulfate/0.9 %Sod Chlr (Atropine 0.01%-Ns Eye Drops) 10 Ml Drops, 1 ML OP BID, #1 12/05/18 Prednisolone Acetate* (Pred Forte*) 5 Ml Susp, 1 DROP LEFT EYE Q1HOUR, EA 12/04/18 Medications Current Medications Ondansetron HCl (Zofran Inj) 4 mg Q6H PRN IV NAUSEA AND/OR VOMITING Last administered on 12/11/18at 17:52; Admin Dose 4 MG; Start 11/30/18 at 21:00 Acetaminophen (Tylenol Liquid) 650 mg Q6H PRN PO PAIN LEVEL 1-3 OR FEVER Last administered on 12/14/18at 01:51; Admin Dose 650 MG; Start 11/30/18 at 21:00 Vancomycin HCl (Vanco Iv Per Pharmacy) VANCOMYCIN PER PHARMACY PER PROTOCOL XX ; Start 11/30/18 at 21:00 Morphine Sulfate (morphine) 2 mg Q2H PRN IV MOD TO SEVERE PAIN Last administered on 12/17/18at 09:39; Admin Dose 2 MG; Start 12/04/18 at 11:30 Emtricitabine/ Tenofovir (Truvada) 1 tab DAILY PO Last administered on 12/17/18at 09:40; Admin Dose 1 TAB; Start 12/06/18 at 09:00 Lamivudine/ Zidovudine (Combivir) 1 tab BID PO Last administered on 12/17/18 09:40; Admin Dose 1 TAB; Start 12/06/18 at 09:00 Sodium Hypochlorite (Dakins Diluted ()) 1 applic DAILY TP Last administered on 12/17/18 09:42; Admin Dose 1 APPLIC; Start 12/06/18 at 09:00 Prednisolone Acetate (Pred-Forte 1%) 1 drop DAILY LEFT EYE Last administered on 12/17/18 09:39; Admin Dose 1 DROP; Start 12/05/18 at 19:00 Atropine Sulfate (Atropine 1% Oph) 1 drop BID LEFT EYE Last administered on 12/17/18 09:39; Admin Dose 1 DROP; Start 12/07/18 at 21:00 Guaifenesin (Robitussin Liquid Cup) 100 mg Q4H PRN PO COUGH Last administered on 12/05/18 20:07; Admin Dose 100 MG; Start 12/05/18 at 19:00 Famotidine (Pepcid) 20 mg Q12 PO Last administered on 12/17/18 09:40; Admin Dose 20 MG; Start 12/06/18 at 21:00 Morphine Sulfate (morphine) 2 mg DAILY PRN IV SEVERE PAIN LEVEL 7-10 Last administered on 12/12/18 13:04; Admin Dose 2 MG; Start 12/07/18 at 13:00 Polyethylene Glycol (Miralax) 17 gm DAILY PO Last administered on 12/13/18 08:34; Admin Dose 17 GM; Start 12/07/18 at 16:00 Docusate Sodium (Colace) 200 mg BID PO Last administered on 12/13/18 08:35; Admin Dose 200 MG; Start 12/07/18 at 21:00 Lactulose (Enulose) 20 gm DAILY PRN PO CONSTIPATION Last administered on 12/07/18 17:07; Admin Dose 20 GM; Start 12/07/18 at 16:00 [facility] 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 PRN XX WOUND CARE; Start 12/08/18 at 02:30 Vancomycin HCl 1.25 gm/Sodium Chloride 250 ml @ 83.333 mls/ hr Q8H IVPB Last administered on 12/17/18 05:37; Admin Dose 83.333 MLS/HR; Start 12/08/18 at 22:00 Multivitamins/ Minerals (Theragran-M) 1 tab DAILY PO Last administered on 12/17/18 09:40; Admin Dose 1 TAB; Start 12/09/18 at 09:00 Ascorbic Acid (Vitamin C) 500 mg BID PO Last administered on 12/17/18 09:40; Admin Dose 500 MG; Start 12/09/18 at 09:00 Zinc Sulfate (Zinc Sulfate) 220 mg DAILY PO Last administered on 12/17/18 09:40; Admin Dose 220 MG; Start 12/09/18 at 09:00 Ibuprofen (Motrin) 400 mg Q6H PRN PO MILD PAIN(1-3) OR TEMP>38C Last administered on 12/12/18 08:39; Admin Dose 400 MG; Start 12/10/18 at 21:00 Trimethoprim/ Sulfamethoxazole (Bactrim (Ds)) 1 tab DAILY PO Last administered on 12/17/18 09:40; Admin Dose 1 TAB; Start 12/12/18 at 12:00 Alteplase, Recombinant (Cathflo (Activase)) 2 mg MAY REPEAT X1 PRN CATHETER IF CATHETER REMAINS OCCULUDED Last administered on 12/12/18 18:04; Admin Dose 2 MG; Start 12/12/18 at 14:30 Acetaminophen/ Hydrocodone Bitart ([place] (5/325)) 1 tab Q4H PRN PO MODERATE PAIN LEVEL 4-6 Last administered on 12/16/18 22:32; Admin Dose 1 TAB; Start 12/12/18 at 15:00 Fluconazole (Diflucan) 100 mg DAILY PO Last administered on 12/17/18 09:40; Admin Dose 100 MG; Start 12/13/18 at 11:30 Azithromycin (Zithromax) 1,200 mg Q7D PO Last administered on 12/13/18 17:58; Admin Dose 1,200 MG; Start 12/13/18 at 18:00 Meropenem/Sodium Chloride 50 ml @ 100 mls/hr Q8H IVPB Last administered on 12/17/18 09:38; Admin Dose 100 MLS/HR; Start 12/13/18 at 17:00 Morphine Sulfate (morphine) 4 mg DAILY PRN IV SEVERE PAIN LEVEL 7-10; Start 12/16/18 at 15:30 Assessment/Plan Hospital Course (Demo Recall) 42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 He underwent incision and drainage of the abdominal wall all the way up to the lower ribs on the left side and also of the left thigh and right inguinal area and debridement of the scrotum and perineal area. The wounds are getting better. He underwent debridement and incision and drainage of a right buttock abscess. The culture from the buttock grew MRSA. He is doing better. His CBC showed a normal white count. At this stage the patient will need plastic surgery consultation and the casey saw operator has been working on that either to have a plastic surgeon see him here or transfer him to a facility where they can do the skin graft for him. GWEN BUCK MD Dec 17, 2018 10:57
--- NOTE | 2018-12-17 12:43 | PN ---
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 No plan for repeat procedures at this time though may eventually need a skin graft. 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 Now improving Anemia: - Adequate iron stores. This is anemia of inflammation Dispo: Continue wound care, follow-up with transfer to [facility], follow- up with [facility] Result Diagram: 12/14/18 0536 12/16/18 0546 Subjective 24 Hr Interval Summary Constitutional: no complaints Exam/Review of Systems Exam Vitals Vital Signs Date Temp Pulse Resp B/P (MAP) Pulse Ox O2 O2 Flow FiO2 Time Delivery Rate 12/17/18 98.3 86 19 98/59 (72) 97 Room Air 08:18 Intake and Output 12/16/18 12/16/18 12/17/18 1515:00 23:00 07:00 IntakeIntake Total 1960 ml 1140 ml 1300 ml OutputOutput Total 1700 ml 900 ml 725 ml BalanceBalance 260 ml 240 ml 575 ml Constitutional: alert, oriented Respiratory: clear to auscultation Cardiovascular: regular rate and rhythm Gastrointestinal: soft; No distended Musculoskeletal: nl extremities to inspection Medications Medication Current Medications Ondansetron HCl (Zofran Inj) 4 mg Q6H PRN IV NAUSEA AND/OR VOMITING Last administered on 12/11/18at 17:52; Admin Dose 4 MG; Start 11/30/18 at 21:00 Acetaminophen (Tylenol Liquid) 650 mg Q6H PRN PO PAIN LEVEL 1-3 OR FEVER Last administered on 12/14/18 01:51; Admin Dose 650 MG; Start 11/30/18 at 21:00 Vancomycin HCl (Vanco Iv Per Pharmacy) VANCOMYCIN PER PHARMACY PER PROTOCOL XX ; Start 11/30/18 at 21:00 Morphine Sulfate (morphine) 2 mg Q2H PRN IV MOD TO SEVERE PAIN Last administered on 12/17/18 12:34; Admin Dose 2 MG; Start 12/04/18 at 11:30 Emtricitabine/ Tenofovir (Truvada) 1 tab DAILY PO Last administered on 12/17/18 09:40; Admin Dose 1 TAB; Start 12/06/18 at 09:00 Lamivudine/ Zidovudine (Combivir) 1 tab BID PO Last administered on 12/17/18 09:40; Admin Dose 1 TAB; Start 12/06/18 at 09:00 Sodium Hypochlorite (Dakins Diluted ()) 1 applic DAILY TP Last administered on 12/17/18 09:42; Admin Dose 1 APPLIC; Start 12/06/18 at 09:00 Prednisolone Acetate (Pred-Forte 1%) 1 drop DAILY LEFT EYE Last administered on 12/17/18 09:39; Admin Dose 1 DROP; Start 12/05/18 at 19:00 Atropine Sulfate (Atropine 1% Oph) 1 drop BID LEFT EYE Last administered on 12/17/18 09:39; Admin Dose 1 DROP; Start 12/07/18 at 21:00 Guaifenesin (Robitussin Liquid Cup) 100 mg Q4H PRN PO COUGH Last administered on 12/05/18 20:07; Admin Dose 100 MG; Start 12/05/18 at 19:00 Famotidine (Pepcid) 20 mg Q12 PO Last administered on 12/17/18 09:40; Admin Dose 20 MG; Start 12/06/18 at 21:00 Polyethylene Glycol (Miralax) 17 gm DAILY PO Last administered on 12/13/18 08:34; Admin Dose 17 GM; Start 12/07/18 at 16:00 Docusate Sodium (Colace) 200 mg BID PO Last administered on 12/13/18 08:35; Admin Dose 200 MG; Start 12/07/18 at 21:00 Lactulose (Enulose) 20 gm DAILY PRN PO CONSTIPATION Last administered on 12/07/18 17:07; Admin Dose 20 GM; Start 12/07/18 at 16:00 Miscellaneous Information (Pending [facility] Order For Wound Care) 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 PRN XX WOUND CARE; Start 12/08/18 at 02:30 Vancomycin HCl 1.25 gm/Sodium Chloride 250 ml @ 83.333 mls/ hr Q8H IVPB Last administered on 12/17/18 05:37; Admin Dose 83.333 MLS/HR; Start 12/08/18 at 22:00 Multivitamins/ Minerals (Theragran-M) 1 tab DAILY PO Last administered on 11/29 09:40; Admin Dose 1 TAB; Start 12/09/18 at 09:00 Ascorbic Acid (Vitamin C) 500 mg BID PO Last administered on 12/17/18 09:40; Admin Dose 500 MG; Start 12/09/18 at 09:00 Zinc Sulfate (Zinc Sulfate) 220 mg DAILY PO Last administered on 12/17/18 09:40; Admin Dose 220 MG; Start 12/09/18 at 09:00 Ibuprofen (Motrin) 400 mg Q6H PRN PO MILD PAIN(1-3) OR TEMP>38C Last administered on 12/12/18 08:39; Admin Dose 400 MG; Start 12/10/18 at 21:00 Trimethoprim/ Sulfamethoxazole (Bactrim (Ds)) 1 tab DAILY PO Last administered on 12/17/18 09:40; Admin Dose 1 TAB; Start 12/12/18 at 12:00 Alteplase, Recombinant (Cathflo (Activase)) 2 mg MAY REPEAT X1 PRN CATHETER IF CATHETER REMAINS OCCULUDED Last administered on 12/12/18 18:04; Admin Dose 2 MG; Start 12/12/18 at 14:30 Acetaminophen/ Hydrocodone Bitart ([place] (5/325)) 1 tab Q4H PRN PO MODERATE PAIN LEVEL 4-6 Last administered on 12/16/18 22:32; Admin Dose 1 TAB; Start 12/12/18 at 15:00 Fluconazole (Diflucan) 100 mg DAILY PO Last administered on 12/17/18 09:40; Admin Dose 100 MG; Start 12/13/18 at 11:30 Azithromycin (Zithromax) 1,200 mg Q7D PO Last administered on 12/13/18at 17:58; Admin Dose 1,200 MG; Start 12/13/18 at 18:00 Meropenem/Sodium Chloride 50 ml @ 100 mls/hr Q8H IVPB Last administered on 12/17/18at 09:38; Admin Dose 100 MLS/HR; Start 12/13/18 at 17:00 Morphine Sulfate (morphine) 4 mg DAILY PRN IV SEVERE PAIN LEVEL 7-10; Start 12/16/18 at 15:30 LAITH MCKEON Dec 17, 2018 12:43
--- NOTE | 2018-12-17 13:59 | CONS ---
Consult Date/Type/Reason Admit Date/Time Nov 30, 2018 at 20:47 Initial Consult Date 12/02/18 Type of Consultation: Urology Requesting Provider: ROBIN TAVAREZ MD Date/Time of Note DATE: 12/17/18 TIME: 13:59 Subjective no new labs this am seen by urology Objective Vitals Vital Signs Date Temp Pulse Resp B/P (MAP) Pulse Ox O2 O2 Flow FiO2 Time Delivery Rate 12/17/18 98.3 86 19 98/59 (72) 97 Room Air 08:18 Intake and Output 12/16/18 12/16/18 12/17/18 1515:00 23:00 07:00 IntakeIntake Total 1960 ml 1140 ml 1300 ml OutputOutput Total 1700 ml 900 ml 725 ml BalanceBalance 260 ml 240 ml 575 ml Results/Medications Result Diagram: 12/14/18 0536 12/16/18 0546 Home Meds Reported Medications Atropine Sulfate/0.9 %Sod Chlr (Atropine 0.01%-Ns Eye Drops) 10 Ml Drops, 1 ML OP BID, #1 12/05/18 Prednisolone Acetate* (Pred Forte*) 5 Ml Susp, 1 DROP LEFT EYE Q1HOUR, EA 12/04/18 Medications Current Medications Ondansetron HCl (Zofran Inj) 4 mg Q6H PRN IV NAUSEA AND/OR VOMITING Last administered on 12/11/18at 17:52; Admin Dose 4 MG; Start 11/30/18 at 21:00 Acetaminophen (Tylenol Liquid) 650 mg Q6H PRN PO PAIN LEVEL 1-3 OR FEVER Last administered on 12/14/18at 01:51; Admin Dose 650 MG; Start 11/30/18 at 21:00 Vancomycin HCl (Vanco Iv Per Pharmacy) VANCOMYCIN PER PHARMACY PER PROTOCOL XX ; Start 11/30/18 at 21:00 Morphine Sulfate (morphine) 2 mg Q2H PRN IV MOD TO SEVERE PAIN Last administered on 12/17/18at 12:34; Admin Dose 2 MG; Start 12/04/18 at 11:30 Emtricitabine/ Tenofovir (Truvada) 1 tab DAILY PO Last administered on 12/17/18at 09:40; Admin Dose 1 TAB; Start 12/06/18 at 09:00 Lamivudine/ Zidovudine (Combivir) 1 tab BID PO Last administered on 12/17/18 09:40; Admin Dose 1 TAB; Start 12/06/18 at 09:00 Sodium Hypochlorite (Dakins Diluted ()) 1 applic DAILY TP Last administered on 12/17/18 09:42; Admin Dose 1 APPLIC; Start 12/06/18 at 09:00 Prednisolone Acetate (Pred-Forte 1%) 1 drop DAILY LEFT EYE Last administered on 12/17/18 09:39; Admin Dose 1 DROP; Start 12/05/18 at 19:00 Atropine Sulfate (Atropine 1% Oph) 1 drop BID LEFT EYE Last administered on 11/29 09:39; Admin Dose 1 DROP; Start 12/07/18 at 21:00 Guaifenesin (Robitussin Liquid Cup) 100 mg Q4H PRN PO COUGH Last administered on 12/05/18 20:07; Admin Dose 100 MG; Start 12/05/18 at 19:00 Famotidine (Pepcid) 20 mg Q12 PO Last administered on 12/17/18 09:40; Admin Dose 20 MG; Start 12/06/18 at 21:00 Polyethylene Glycol (Miralax) 17 gm DAILY PO Last administered on 12/13/18 08:34; Admin Dose 17 GM; Start 12/07/18 at 16:00 Docusate Sodium (Colace) 200 mg BID PO Last administered on 12/13/18 08:35; Admin Dose 200 MG; Start 12/07/18 at 21:00 Lactulose (Enulose) 20 gm DAILY PRN PO CONSTIPATION Last administered on 12/07/18 17:07; Admin Dose 20 GM; Start 12/07/18 at 16:00 Miscellaneous Information (Pending [facility] Order For Wound Care) 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 PRN XX WOUND CARE; Start 12/08/18 at 02:30 Vancomycin HCl 1.25 gm/Sodium Chloride 250 ml @ 83.333 mls/ hr Q8H IVPB Last administered on 12/17/18 05:37; Admin Dose 83.333 MLS/HR; Start 12/08/18 at 22:00 Multivitamins/ Minerals (Theragran-M) 1 tab DAILY PO Last administered on 12/17/18 09:40; Admin Dose 1 TAB; Start 12/09/18 at 09:00 Ascorbic Acid (Vitamin C) 500 mg BID PO Last administered on 12/17/18 09:40; Admin Dose 500 MG; Start 12/09/18 at 09:00 Zinc Sulfate (Zinc Sulfate) 220 mg DAILY PO Last administered on 12/17/18 09:40; Admin Dose 220 MG; Start 12/09/18 at 09:00 Ibuprofen (Motrin) 400 mg Q6H PRN PO MILD PAIN(1-3) OR TEMP>38C Last administered on 12/12/18 08:39; Admin Dose 400 MG; Start 12/10/18 at 21:00 Trimethoprim/ Sulfamethoxazole (Bactrim (Ds)) 1 tab DAILY PO Last administered on 12/17/18 09:40; Admin Dose 1 TAB; Start 12/12/18 at 12:00 Alteplase, Recombinant (Cathflo (Activase)) 2 mg MAY REPEAT X1 PRN CATHETER IF CATHETER REMAINS OCCULUDED Last administered on 12/12/18 18:04; Admin Dose 2 MG; Start 12/12/18 at 14:30 Acetaminophen/ Hydrocodone Bitart ([place] (5/325)) 1 tab Q4H PRN PO MODERATE PAIN LEVEL 4-6 Last administered on 12/16/18 22:32; Admin Dose 1 TAB; Start 12/12/18 at 15:00 Fluconazole (Diflucan) 100 mg DAILY PO Last administered on 12/17/18 09:40; Admin Dose 100 MG; Start 12/13/18 at 11:30 Azithromycin (Zithromax) 1,200 mg Q7D PO Last administered on 12/13/18 17:58; Admin Dose 1,200 MG; Start 12/13/18 at 18:00 Meropenem/Sodium Chloride 50 ml @ 100 mls/hr Q8H IVPB Last administered on 12/17/18 09:38; Admin Dose 100 MLS/HR; Start 12/13/18 at 17:00 Morphine Sulfate (morphine) 4 mg DAILY PRN IV SEVERE PAIN LEVEL 7-10; Start 12/16/18 at 15:30 Assessment/Plan Hospital Course (Demo Recall) 1. Nonoliguric acute kidney injury. Etiology is secondary to hemodynamics. Renal function is improved. Continue to monitor. 2. Hyponatremia. 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 Continue to monitor sodium levels. improved with some fluctuation. no indication for hypertonic saline. no new labs this am. 3. Anemia/ leucopenia. Continue to monitor and hematocrit levels. 4. Fevers- persistent. 5. 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 6. Fasciitis. The patient is status post multiple debridements, status post incision and drainage of perineal and penile region. Continue current antibiotic regimen, dressing changes, follow up with urology. may need skin graft. 7. Status post respiratory failure. 8. Encephalopathy, resolved 9. History of human immunodeficiency virus. Continue to monitor. 10. History of hepatitis. 11. hypotension- bp better sp bolus. generally low. consider adrenal insufficiency. will see prn. TRINITY POLO MD Dec 17, 2018 13:59
[2018-12-17 14:47] VITALS: BP 92/59; PULSE 88; RESP 19
--- NOTE | 2018-12-17 15:57 | CONS ---
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 Admit w/septic shock -> Extubated 12/03/18 -- stable on supplemental O2 * s/p dbridements x3 on 11/30/18; 12/03/18, and 12/08/18 * Operative Report Procedure Date: Dec 08, 2018 Preoperative DiagnosisFournier gangrene of the scrotum base of the penis left inguinal area and necrotizing fasciitis of the abdominal wall left side extending all the way to the chest toward the left axilla. Abscess of right buttockPostoperative DiagnosisSame * Operation/Procedure Performed Debridement of all necrotized tissue in the scrotum perineal area base of the penis left inguinal area and of all the abdominal wound including the muscles. * CURRENT ABX: DAY # 18=>Vanco IV #18+ BACTRIM PO #15 + Merrem + Diflucan s/p + Zosyn + Clinda IV HIV ARV MEDS: Started Truvada + Combivir in am 12/06/18 + Bactrim 1 TAB po Daily 24H INTERVAL SUMMARY * No fevers, WBC down today, VSS * Pain meds onboard -- patient resting between dressing changes w/pain meds onb oard * NEW PICC LINE 12/04/18 -> Removed 12/12/18 WOUND CULTURE Final Source: PICC line cath tip NO GROWTH AFTER 3 DAYS MICRO * 12/14/18 Urine Cx (-) * 12/14/18 BCX (-) * 12/13/18 PICC DC'D WOUND CULTURE Final Source: PICC line cath tip NO GROWTH AFTER 3 DAYS * 12/12/18 Urine Cx (-) * 12/12/18 BCx (-) * 12/08/18 BUTTOCK CX: WOUND CULTURE Final Organism 1 METHICILLIN RESISTANT S.AUREUS QUANTITY SCANT GROWTH . MULTI DRUG RESISTANT ORGANISM Organism 2 K.PNEUMONIAE SSP PNEUMONIAE QUANTITY SCANT GROWTH Organism 3 ESCHERICHIA COLI QUANTITY ISOLATED FROM BROTH ONLY MRSA K PNE SPP E COLI M.I.C. RX M.I.C. RX M.I.C. RX --------- --- --------- --- --------- --- AMPICILLIN >=32 R CEFAZOLIN R R R CEFOTAXIME S S CIPROFLOXACIN >=8 R <=0.25 S <=0.25 S CLINDAMYCIN <=0.25 S DOXYCYCLINE S ERYTHROMYCIN >=8 R GENTAMICIN <=1 S <=1 S LEVOFLOXACIN 4 R <=0.12 S <=0.12 S OXACILLIN >=4 R PENICILLIN-G >=0.5 R RIFAMPIN <=0.5 S VANCOMYCIN <=0.5 S TOBRAMYCIN <=1 S <=1 S TRIMETHOPRIM/SULFAMETHOXAZOLE 80 R >=320 R >=320 R PIPERACILLIN/TAZOBACTAM <=4 S * 12/04/18 THIGH TISSUE (BIOPSY) CULTURE P NO GROWTH AFTER 1 DAY * ABD CX: (+)MRSA * 12/02/18 BCX (-) * 12/02/18 SCROTAL WOUND CX: WOUND CULTURE Final Organism 1 METHICILLIN RESISTANT S.AUREUS QUANTITY 2+ . MULTI DRUG RESISTANT ORGANISM MRSA M.I.C. RX --------- --- CEFAZOLIN R CIPROFLOXACIN >=8 R CLINDAMYCIN <=0.25 S DOXYCYCLINE S ERYTHROMYCIN >=8 R LEVOFLOXACIN 4 R OXACILLIN R PENICILLIN-G >=0.5 R RIFAMPIN <=0.5 S VANCOMYCIN <=0.5 S TRIMETHOPRIM/SULFAMETHOXAZOLE 20 S HIV SURVEILLANCE STATUS * 12/02/18 (+)HIV AB confirmed -> STARTED ON ARV MEDS TRUVADA + COMBIVIR * HIV resistance panel and Integrase Genotyping sent 11/03/18 * HLA-[id number] phenotyping sent - required for Rx Abacavir (Triumeq) if (-) OK for Abacavir * 12/03/18 CD4# @ 224# - CD4% @12% => Technically (+)AIDS per CD4% 12% with low CD4#224 in setting of SKEWED CBC DIFFERENTIAL w/Leukocytosis-> 80% NEUTs% and BANDEMIA with Lymphocyte percentage of DIFF markedly reduced to 10.8% in setting of bacteria infection. Nevertheless, his CD4% of the lower lymphocyte count qualifies him for Dx of (+)AIDS -- expect to see CD4# rise as leukocytosis due to neutrophilia/bandemia normalize. * 12/01/18 CD4# 143 and 13% CD4% => report uploaded 12/13/18 from [facility] * NOTED: Patient has not told family/friends about his HIV Dx and wants info PRIVATE PHYSICAL EXAMINATION: GENERAL: VSS, NAD HEENT: Prior NECK: Supple, CHEST: Rise symmetrical HEART: Pulse RRR ABDOMEN/: DSB C/D/I * SEE PHOTOS EXTENSIVE DEBRIDEMENT scrotum perineal area base of the penis left inguinal area and of all the abdominal wound including the muscles. EXTREMITIES: Warm, dry SKIN: No rash, no diaphoresis ID ASSESSMENT 42 yo M admit with: 1. Septic shock w/hypotension, fevers, leukocytosis due to #2 2. MRSA Nida's gangrene * s/p dbridements x2 on 11/30/18 and most recent on 12/03/18. * He underwent incision and drainage of the abdominal wall all the way up to the lower ribs on the left side and also of the left thigh and right inguinal area and debridement of the scrotum and perineal area. 3. HIV=>(+)AIDS at date of Dx 12/02/18 (+)HIV AB confirmed -> STARTED ON ARV MEDS TRUVADA + COMBIVIR 12/06/18 * 12/01/18 CD4# @ 143 and 13% CD4% => report uploaded 12/13/18 from [facility] * 12/03/18 CD4# @ 224# - CD4% @12% => Technically (+)AIDS per CD4% 12% 3. HBV w/HBV+Delta acute infection October 2017 w/repeat HBsAB Indeterminate and HBsAG (-) in JAN 2018 * => HE CLEARED THE VIRUS 4. Post operative mechanical ventilation ->EXTUBATED 12/03/18 5. Anemia * -He is following up with night clerk as outpatient. He does not know what the diagnosis is, but he saw a retina specialist * MRI brain w/ 6. Acute renal insufficiency-resolving 7. Anemia (?)MRSA Nares ABX ALLERGIES: QUINOLONES INVASIVES: PIV, CURRENT ABX: DAY # 18=>Vanco IV #18+ BACTRIM PO #15 + Merrem + Diflucan s/p + Zosyn + Clinda IV HIV ARV MEDS: Started Truvada + Combivir in am 12/06/18 + Bactrim 1 TAB po Daily ID RECOMMENDATIONS/PLAN: 1. Continue current ABX. 2. Check Nares for MRSA 3. DC AZITH Q Week == MAIC Prophy is ONLY indicated if the CD4# </= 50; patient CD4# range 143-224. * Continue Bactrim for PJP prophy until CD4# consistently > 200 and CD4% > 14 * . Consultation Date/Type/Reason Admit Date/Time Nov 30, 2018 at 20:47 Initial Consult Date 12/02/18 Requesting Provider: ROBIN TAVAREZ MD Date/Time of Note DATE: 12/17/18 TIME: 15:56 Exam/Review of Systems Exam Vitals Vital Signs Date Temp Pulse Resp B/P (MAP) Pulse Ox O2 O2 Flow FiO2 Time Delivery Rate 12/17/18 98.2 88 19 92/59 (70) 98 Room Air 14:47 Intake and Output 12/16/18 12/16/18 12/17/18 1515:00 23:00 07:00 IntakeIntake Total 1960 ml 1140 ml 1300 ml OutputOutput Total 1700 ml 900 ml 725 ml BalanceBalance 260 ml 240 ml 575 ml Results Result Diagram: 12/14/18 0536 12/16/18 0546 Medications Medication Current Medications Ondansetron HCl (Zofran Inj) 4 mg Q6H PRN IV NAUSEA AND/OR VOMITING Last administered on 12/11/18at 17:52; Admin Dose 4 MG; Start 11/30/18 at 21:00 Acetaminophen (Tylenol Liquid) 650 mg Q6H PRN PO PAIN LEVEL 1-3 OR FEVER Last administered on 12/14/18at 01:51; Admin Dose 650 MG; Start 11/30/18 at 21:00 Vancomycin HCl (Vanco Iv Per Pharmacy) VANCOMYCIN PER PHARMACY PER PROTOCOL XX ; Start 11/30/18 at 21:00 Morphine Sulfate (morphine) 2 mg Q2H PRN IV MOD TO SEVERE PAIN Last administered on 12/17/18at 12:34; Admin Dose 2 MG; Start 12/04/18 at 11:30 Emtricitabine/ Tenofovir (Truvada) 1 tab DAILY PO Last administered on 12/17/18 09:40; Admin Dose 1 TAB; Start 12/06/18 at 09:00 Lamivudine/ Zidovudine (Combivir) 1 tab BID PO Last administered on 12/17/18 09:40; Admin Dose 1 TAB; Start 12/06/18 at 09:00 Sodium Hypochlorite (Dakins Diluted ()) 1 applic DAILY TP Last administered on 12/17/18 09:42; Admin Dose 1 APPLIC; Start 12/06/18 at 09:00 Prednisolone Acetate (Pred-Forte 1%) 1 drop DAILY LEFT EYE Last administered on 12/17/18 09:39; Admin Dose 1 DROP; Start 12/05/18 at 19:00 Atropine Sulfate (Atropine 1% Oph) 1 drop BID LEFT EYE Last administered on 12/17/18 09:39; Admin Dose 1 DROP; Start 12/07/18 at 21:00 Guaifenesin (Robitussin Liquid Cup) 100 mg Q4H PRN PO COUGH Last administered on 12/05/18 20:07; Admin Dose 100 MG; Start 12/05/18 at 19:00 Famotidine (Pepcid) 20 mg Q12 PO Last administered on 12/17/18 09:40; Admin Dose 20 MG; Start 12/06/18 at 21:00 Polyethylene Glycol (Miralax) 17 gm DAILY PO Last administered on 12/13/18 08:34; Admin Dose 17 GM; Start 12/07/18 at 16:00 Docusate Sodium (Colace) 200 mg BID PO Last administered on 12/13/18 08:35; Admin Dose 200 MG; Start 12/07/18 at 21:00 Lactulose (Enulose) 20 gm DAILY PRN PO CONSTIPATION Last administered on 12/07/18 17:07; Admin Dose 20 GM; Start 12/07/18 at 16:00 [facility] 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 PRN XX WOUND CARE; Start 12/08/18 at 02:30 Vancomycin HCl 1.25 gm/Sodium Chloride 250 ml @ 83.333 mls/ hr Q8H IVPB Last a dministered on 12/17/18 14:37; Admin Dose 83.333 MLS/HR; Start 12/08/18 at 22:00 Multivitamins/ Minerals (Theragran-M) 1 tab DAILY PO Last administered on 12/17/18 09:40; Admin Dose 1 TAB; Start 12/09/18 at 09:00 Ascorbic Acid (Vitamin C) 500 mg BID PO Last administered on 12/17/18 09:40; Admin Dose 500 MG; Start 12/09/18 at 09:00 Zinc Sulfate (Zinc Sulfate) 220 mg DAILY PO Last administered on 12/17/18 09:40; Admin Dose 220 MG; Start 12/09/18 at 09:00 Ibuprofen (Motrin) 400 mg Q6H PRN PO MILD PAIN(1-3) OR TEMP>38C Last administered on 12/12/18 08:39; Admin Dose 400 MG; Start 12/10/18 at 21:00 Trimethoprim/ Sulfamethoxazole (Bactrim (Ds)) 1 tab DAILY PO Last administered on 12/17/18 09:40; Admin Dose 1 TAB; Start 12/12/18 at 12:00 Alteplase, Recombinant (Cathflo (Activase)) 2 mg MAY REPEAT X1 PRN CATHETER IF CATHETER REMAINS OCCULUDED Last administered on 12/12/18 18:04; Admin Dose 2 MG; Start 12/12/18 at 14:30 Acetaminophen/ Hydrocodone Bitart ([place] (5/325)) 1 tab Q4H PRN PO MODERATE PAIN LEVEL 4-6 Last administered on 12/16/18 22:32; Admin Dose 1 TAB; Start 12/12/18 at 15:00 Fluconazole (Diflucan) 100 mg DAILY PO Last administered on 12/17/18 09:40; Admin Dose 100 MG; Start 12/13/18 at 11:30 Azithromycin (Zithromax) 1,200 mg Q7D PO Last administered on 12/13/18 17:58; Admin Dose 1,200 MG; Start 12/13/18 at 18:00 Meropenem/Sodium Chloride 50 ml @ 100 mls/hr Q8H IVPB Last administered on 12/17/18 09:38; Admin Dose 100 MLS/HR; Start 12/13/18 at 17:00 Morphine Sulfate (morphine) 4 mg DAILY PRN IV SEVERE PAIN LEVEL 7-10; Start 12/16/18 at 15:30 ROSS FERNANDES NP Dec 17, 2018 15:57
[2018-12-17] MEDS: HYDROCODONE/APAP (5/325) TAB PO PRN ×2 (18:03→22:52)
[2018-12-17 20:00] VITALS: BP 92/57; PULSE 85; RESP 19
[2018-12-18] MEDS: morphine 2 MG INJ IV PRN ×6 (00:58→23:54)
[2018-12-18] MEDS: MEROPENEM 1 GM/50ML(PMX) 50 ML IVPB SCH ×3 (00:58→16:57)
[2018-12-18 01:06] VITALS: BP 93/62; PULSE 84; RESP 18
[2018-12-18] MEDS: VANCOMYCIN HCL 1.25 GM in SOD CHLORIDE 0.9% 250 ML IVPB SCH ×3 (05:32→22:49)
[2018-12-18 08:21] VITALS: BP 97/60; PULSE 86
[2018-12-18] MEDS: ASCORBIC ACID 500 MG TAB PO SCH ×2 (08:36→20:22)
[2018-12-18] MEDS: POLYETHYLENE GLYCOL 17 GM PACKET PO SCH (08:36)
[2018-12-18] MEDS: FLUCONAZOLE 100 MG TAB PO SCH (08:36)
[2018-12-18] MEDS: EMTRICITABINE/TENOFOVIR TAB PO SCH (08:36)
[2018-12-18] MEDS: PREDNISOLONE ACET 1% 5 ML OPH LEFT EYE SCH (08:36)
[2018-12-18] MEDS: MULTIVITAMINS/MINERALS TAB PO SCH (08:36)
[2018-12-18] MEDS: LAMIVUDINE/ZIDOVUDINE TAB PO SCH ×2 (08:36→20:21)
[2018-12-18] MEDS: ZINC SULFATE 220 MG CAP PO SCH (08:36)
[2018-12-18] MEDS: ATROPINE 1% 5 ML OPH LEFT EYE SCH ×2 (08:36→20:22)
[2018-12-18] MEDS: FAMOTIDINE 20 MG TAB PO SCH ×2 (08:36→20:22)
[2018-12-18] MEDS: TRIMETHOPRIM/SULFAMETHOX (DS) TAB PO SCH (08:36)
[2018-12-18] MEDS: DOCUSATE SODIUM 100 MG CAP PO SCH ×2 (08:37→20:30)
[2018-12-18] MEDS: HYDROCODONE/APAP (5/325) TAB PO PRN ×2 (13:05→21:48)
[2018-12-18 14:00] VITALS: BP 100/60; PULSE 88; RESP 18
--- NOTE | 2018-12-18 16:46 | CONS ---
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 Abscess of right buttockPostoperative DiagnosisSame Operation/Procedure Performed Debridement of all necrotized tissue in the scrotum perineal area base of the penis left inguinal area and of all the abdominal wound including the muscles. * CURRENT ABX: DAY # 19=>Vanco IV #19+ BACTRIM PO #16 + Merrem + Diflucan s/p + Zosyn + Clinda IV HIV ARV MEDS: Started Truvada + Combivir in am 12/06/18 + Bactrim 1 TAB po Daily 24H INTERVAL SUMMARY * Awake, alert, coping well -- No fevers, WBC down today, VSS * HIV resistance panel resulted in a "wild viral type" = NO RESISTANCE MICRO * 12/14/18 Urine Cx (-) * 12/14/18 BCX (-) * 12/13/18 PICC DC'D WOUND CULTURE Final Source: PICC line cath tip NO GROWTH AFTER 3 DAYS * 12/12/18 Urine Cx (-) * 12/12/18 BCx (-) * 12/08/18 BUTTOCK CX: WOUND CULTURE Final Organism 1 METHICILLIN RESISTANT S.AUREUS QUANTITY SCANT GROWTH . MULTI DRUG RESISTANT ORGANISM Organism 2 K.PNEUMONIAE SSP PNEUMONIAE QUANTITY SCANT GROWTH Organism 3 ESCHERICHIA COLI QUANTITY ISOLATED FROM BROTH ONLY MRSA K PNE SPP E COLI M.I.C. RX M.I.C. RX M.I.C. RX --------- --- --------- --- --------- --- AMPICILLIN >=32 R CEFAZOLIN R R R CEFOTAXIME S S CIPROFLOXACIN >=8 R <=0.25 S <=0.25 S CLINDAMYCIN <=0.25 S DOXYCYCLINE S ERYTHROMYCIN >=8 R GENTAMICIN <=1 S <=1 S LEVOFLOXACIN 4 R <=0.12 S <=0.12 S OXACILLIN >=4 R PENICILLIN-G >=0.5 R RIFAMPIN <=0.5 S VANCOMYCIN <=0.5 S TOBRAMYCIN <=1 S <=1 S TRIMETHOPRIM/SULFAMETHOXAZOLE 80 R >=320 R >=320 R PIPERACILLIN/TAZOBACTAM <=4 S * 12/04/18 THIGH TISSUE (BIOPSY) CULTURE P NO GROWTH AFTER 1 DAY * ABD CX: (+)MRSA * 12/02/18 BCX (-) * 12/02/18 SCROTAL WOUND CX: WOUND CULTURE Final Organism 1 METHICILLIN RESISTANT S.AUREUS QUANTITY 2+ . MULTI DRUG RESISTANT ORGANISM MRSA M.I.C. RX --------- --- CEFAZOLIN R CIPROFLOXACIN >=8 R CLINDAMYCIN <=0.25 S DOXYCYCLINE S ERYTHROMYCIN >=8 R LEVOFLOXACIN 4 R OXACILLIN R PENICILLIN-G >=0.5 R RIFAMPIN <=0.5 S VANCOMYCIN <=0.5 S TRIMETHOPRIM/SULFAMETHOXAZOLE 20 S HIV SURVEILLANCE STATUS * 12/02/18 (+)HIV AB confirmed -> STARTED ON ARV MEDS TRUVADA + COMBIVIR * HIV resistance panel and Integrase Genotyping sent 11/03/18 == HIV resistance panel resulted in a "wild viral type" = NO RESISTANCE * HLA-[id number] phenotyping sent - required for Rx Abacavir (Triumeq) if (-) OK for Abacavir * 12/03/18 CD4# @ 224# - CD4% @12% => Technically (+)AIDS per CD4% 12% with low CD4#224 in setting of SKEWED CBC DIFFERENTIAL w/Leukocytosis-> 80% NEUTs% and BANDEMIA with Lymphocyte percentage of DIFF markedly reduced to 10.8% in setting of bacteria infection. Nevertheless, his CD4% of the lower lymphocyte count qualifies him for Dx of (+)AIDS -- expect to see CD4# rise as leukocytosis due to neutrophilia/bandemia normalize. * 12/01/18 CD4# 143 and 13% CD4% => report uploaded 12/13/18 from [facility] * 12/01/18 HIV Viral Load HIV 1 RNA QN PCR 632,000 w/ 5.80 LOG => report uploaded 12/13/18 from [facility] PHYSICAL EXAMINATION: GENERAL: VSS, NAD HEENT: Prior NECK: Supple, CHEST: Rise symmetrical HEART: Pulse RRR ABDOMEN/: DSB C/D/I * SEE PHOTOS EXTENSIVE DEBRIDEMENT scrotum perineal area base of the penis left inguinal area and of all the abdominal wound including the muscles. EXTREMITIES: Warm, dry SKIN: No rash, no diaphoresis ID ASSESSMENT 42 yo M admit with: 1. Septic shock w/hypotension, fevers, leukocytosis due to #2 2. MRSA Nida's gangrene * s/p dbridements x2 on 11/30/18 and most recent on 12/03/18. * He underwent incision and drainage of the abdominal wall all the way up to the lower ribs on the left side and also of the left thigh and right inguinal area and debridement of the scrotum and perineal area. 3. HIV=>(+)AIDS at date of Dx 12/02/18 (+)HIV AB confirmed -> STARTED ON ARV MEDS TRUVADA + COMBIVIR 12/06/18 * 12/01/18 CD4# @ 143 and 13% CD4% => report uploaded 12/13/18 from [facility] * 12/03/18 CD4# @ 224# - CD4% @12% => Technically (+)AIDS per CD4% 12% 3. HBV w/HBV+Delta acute infection October 2017 w/repeat HBsAB Indeterminate and HBsAG (-) in JAN 2018 * => HE CLEARED THE VIRUS 4. Post operative mechanical ventilation ->EXTUBATED 12/03/18 5. Anemia * -He is following up with guide foreign tour as outpatient. He does not know what the diagnosis is, but he saw a retina specialist * MRI brain w/ 6. Acute renal insufficiency-resolving 7. Anemia (?)MRSA Nares ABX ALLERGIES: QUINOLONES INVASIVES: PIV, CURRENT ABX: DAY # 19=>Vanco IV #19+ BACTRIM PO #16 + Merrem + Diflucan s/p + Zosyn + Clinda IV HIV ARV MEDS: Started Truvada + Combivir in am 12/06/18 + Bactrim 1 TAB po Daily ID RECOMMENDATIONS/PLAN: 1. Continue current ABX. 2. Check Nares for MRSA 3. DC AZITH Q Week == MAIC Prophy is ONLY indicated if the CD4# </= 50; patient CD4# range 143-224. * Continue Bactrim for PJP prophy until CD4# consistently > 200 and CD4% > 14 Consultation Date/Type/Reason Admit Date/Time Nov 30, 2018 at 20:47 Initial Consult Date 12/02/18 Requesting Provider: ROBIN TAVAREZ MD Date/Time of Note DATE: 12/18/18 TIME: 16:40 Exam/Review of Systems Exam Vitals Vital Signs Date Temp Pulse Resp B/P (MAP) Pulse Ox O2 O2 Flow FiO2 Time Delivery Rate 12/18/18 99.2 88 18 100/60 98 Room Air 14:00 (73) Intake and Output 12/17/18 12/17/18 12/18/18 1515:00 23:00 07:00 IntakeIntake Total 1800 ml 700 ml 600 ml OutputOutput Total 900 ml 660 ml 800 ml BalanceBalance 900 ml 40 ml -200 ml Results Result Diagram: 12/14/18 0536 12/18/18 0456 Results 24hrs Laboratory Tests Test 12/18/18 04:56 Blood Urea Nitrogen 14 Creatinine 0.52 L Medications Medication Current Medications Ondansetron HCl (Zofran Inj) 4 mg Q6H PRN IV NAUSEA AND/OR VOMITING Last administered on 12/11/18at 17:52; Admin Dose 4 MG; Start 11/30/18 at 21:00 Acetaminophen (Tylenol Liquid) 650 mg Q6H PRN PO PAIN LEVEL 1-3 OR FEVER Last administered on 12/14/18at 01:51; Admin Dose 650 MG; Start 11/30/18 at 21:00 Vancomycin HCl (Vanco Iv Per Pharmacy) VANCOMYCIN PER PHARMACY PER PROTOCOL XX ; Start 11/30/18 at 21:00 Morphine Sulfate (morphine) 2 mg Q2H PRN IV MOD TO SEVERE PAIN Last administered on 12/18/18 15:31; Admin Dose 2 MG; Start 12/04/18 at 11:30 Emtricitabine/ Tenofovir (Truvada) 1 tab DAILY PO Last administered on 12/18/18 08:36; Admin Dose 1 TAB; Start 12/06/18 at 09:00 Lamivudine/ Zidovudine (Combivir) 1 tab BID PO Last administered on 12/18/18 08:36; Admin Dose 1 TAB; Start 12/06/18 at 09:00 Sodium Hypochlorite (Dakins Diluted ()) 1 applic DAILY TP Last administered on 12/17/18 09:42; Admin Dose 1 APPLIC; Start 12/06/18 at 09:00 Prednisolone Acetate (Pred-Forte 1%) 1 drop DAILY LEFT EYE Last administered on 12/18/18 08:36; Admin Dose 1 DROP; Start 12/05/18 at 19:00 Atropine Sulfate (Atropine 1% Oph) 1 drop BID LEFT EYE Last administered on 12/18/18 08:36; Admin Dose 1 DROP; Start 12/07/18 at 21:00 Guaifenesin (Robitussin Liquid Cup) 100 mg Q4H PRN PO COUGH Last administered on 12/05/18 20:07; Admin Dose 100 MG; Start 12/05/18 at 19:00 Famotidine (Pepcid) 20 mg Q12 PO Last administered on 12/18/18 08:36; Admin Dose 20 MG; Start 12/06/18 at 21:00 Polyethylene Glycol (Miralax) 17 gm DAILY PO Last administered on 12/13/18 08:34; Admin Dose 17 GM; Start 12/07/18 at 16:00 Docusate Sodium (Colace) 200 mg BID PO Last administered on 12/13/18 08:35; Admin Dose 200 MG; Start 12/07/18 at 21:00 Lactulose (Enulose) 20 gm DAILY PRN PO CONSTIPATION Last administered on 12/07/18 17:07; Admin Dose 20 GM; Start 12/07/18 at 16:00 Miscellaneous Information (Pending Santyl Order For Wound Care) 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 PRN XX WOUND CARE; Start 12/08/18 at 02:30 Vancomycin HCl 1.25 gm/Sodium Chloride 250 ml @ 83.333 mls/ hr Q8H IVPB Last administered on 12/18/18 14:23; Admin Dose 83.333 MLS/HR; Start 12/08/18 at 22:00 Multivitamins/ Minerals (Theragran-M) 1 tab DAILY PO Last administered on 12/18/18 08:36; Admin Dose 1 TAB; Start 12/09/18 at 09:00 Ascorbic Acid (Vitamin C) 500 mg BID PO Last administered on 12/18/18 08:36; Admin Dose 500 MG; Start 12/09/18 at 09:00 Zinc Sulfate (Zinc Sulfate) 220 mg DAILY PO Last administered on 12/18/18 08:36; Admin Dose 220 MG; Start 12/09/18 at 09:00 Ibuprofen (Motrin) 400 mg Q6H PRN PO MILD PAIN(1-3) OR TEMP>38C Last administered on 12/12/18 08:39; Admin Dose 400 MG; Start 12/10/18 at 21:00 Trimethoprim/ Sulfamethoxazole (Bactrim (Ds)) 1 tab DAILY PO Last administered on 12/18/18 08:36; Admin Dose 1 TAB; Start 12/12/18 at 12:00 Alteplase, Recombinant (Cathflo (Activase)) 2 mg MAY REPEAT X1 PRN CATHETER IF CATHETER REMAINS OCCULUDED Last administered on 12/12/18 18:04; Admin Dose 2 MG; Start 12/12/18 at 14:30 Acetaminophen/ Hydrocodone Bitart ([place] (5/325)) 1 tab Q4H PRN PO MODERATE PAIN LEVEL 4-6 Last administered on 12/18/18 13:05; Admin Dose 1 TAB; Start 12/12/18 at 15:00 Fluconazole (Diflucan) 100 mg DAILY PO Last administered on 12/18/18 08:36; Admin Dose 100 MG; Start 12/13/18 at 11:30 Meropenem/Sodium Chloride 50 ml @ 100 mls/hr Q8H IVPB Last administered on 12/18/18 08:35; Admin Dose 100 MLS/HR; Start 12/13/18 at 17:00 Morphine Sulfate (morphine) 4 mg DAILY PRN IV SEVERE PAIN LEVEL 7-10; Start 12/16/18 at 15:30 Miscellaneous Information (*Rx Drug Level Order Reminder*) VANCO TR AT 1300 1300 ONCE XX ; Start 12/19/18 at 13:00; Stop 12/19/18 at 13:01 ROSS FERNANDES NP Dec 18, 2018 16:46
[2018-12-18] MEDS: DAKINS 0.0125%(1/40) 473 ML SOLUTION TP SCH (16:57)
--- NOTE | 2018-12-18 18:21 | PN ---
Date/Time of Note Date/Time of Note DATE: 12/18/18 TIME: 18:21 Assessment/Plan VTE Prophylaxis Risk score (from Nsg)>0 risk: 4 SCD applied (from Ns): Yes Pharmacological prophylaxis: NA/contraindicated Pharm contraindication: other Lines/Catheters IV Catheter Type (from Nrsg): Saline Lock Urinary Cath still in place: No Assessment/Plan Hospital Course 42 yo male with HIV/AIDS who presented with fourniers gangrene and necrotizing fasciitis of abdmoen - s/p I and D procedures per She Damon and Mela who are following. No plan for repeat procedures at this time though may eventually need a skin graft. We had considered transfer to tertiary center for hyperbaric oxygen therapy however it appears this will not be possible -district loss prevention manager attempting to transfer patient to [facility] - Wound care, wound vac - Abx per ID HIV/AIDS: - ARVs and ppx per ID Hyponatremia: - Urine studies suggested hypovolemia as etiology. Now improving Anemia: - Adequate iron stores. This is anemia of inflammation Dispo: Continue wound care, follow-up with transfer to [facility], follow- up with [facility] Result Diagram: 12/14/18 0536 12/18/18 0456 Results 24hrs Laboratory Tests Test 12/18/18 04:56 Blood Urea Nitrogen 14 Creatinine 0.52 L Subjective 24 Hr Interval Summary Constitutional: no complaints Exam/Review of Systems Exam Vitals Vital Signs Date Temp Pulse Resp B/P (MAP) Pulse Ox O2 O2 Flow FiO2 Time Delivery Rate 12/18/18 99.2 88 18 100/60 98 Room Air 14:00 (73) Intake and Output 12/17/18 12/17/18 12/18/18 1515:00 23:00 07:00 IntakeIntake Total 1800 ml 700 ml 600 ml OutputOutput Total 900 ml 660 ml 800 ml BalanceBalance 900 ml 40 ml -200 ml Constitutional: alert, oriented Respiratory: clear to auscultation Cardiovascular: regular rate and rhythm Gastrointestinal: soft; No distended Musculoskeletal: nl extremities to inspection Results Results 24hrs Laboratory Tests Test 12/18/18 04:56 Blood Urea Nitrogen 14 Creatinine 0.52 L Medications Medication Current Medications Ondansetron HCl (Zofran Inj) 4 mg Q6H PRN IV NAUSEA AND/OR VOMITING Last administered on 7/14/19at 17:52; Admin Dose 4 MG; Start 11/30/18 at 21:00 Acetaminophen (Tylenol Liquid) 650 mg Q6H PRN PO PAIN LEVEL 1-3 OR FEVER Last administered on 12/14/18 01:51; Admin Dose 650 MG; Start 11/30/18 at 21:00 Vancomycin HCl (Vanco Iv Per Pharmacy) VANCOMYCIN PER PHARMACY PER PROTOCOL XX ; Start 11/30/18 at 21:00 Morphine Sulfate (morphine) 2 mg Q2H PRN IV MOD TO SEVERE PAIN Last administered on 12/18/18 15:31; Admin Dose 2 MG; Start 12/04/18 at 11:30 Emtricitabine/ Tenofovir (Truvada) 1 tab DAILY PO Last administered on 12/18/18 08:36; Admin Dose 1 TAB; Start 12/06/18 at 09:00 Lamivudine/ Zidovudine (Combivir) 1 tab BID PO Last administered on 12/18/18 08:36; Admin Dose 1 TAB; Start 12/06/18 at 09:00 Sodium Hypochlorite (Dakins Diluted ()) 1 applic DAILY TP Last administered on 12/18/18 16:57; Admin Dose 1 APPLIC; Start 12/06/18 at 09:00 Prednisolone Acetate (Pred-Forte 1%) 1 drop DAILY LEFT EYE Last administered on 12/18/18 08:36; Admin Dose 1 DROP; Start 12/05/18 at 19:00 Atropine Sulfate (Atropine 1% Oph) 1 drop BID LEFT EYE Last administered on 12/18/18 08:36; Admin Dose 1 DROP; Start 12/07/18 at 21:00 Guaifenesin (Robitussin Liquid Cup) 100 mg Q4H PRN PO COUGH Last administered on 12/05/18 20:07; Admin Dose 100 MG; Start 12/05/18 at 19:00 Famotidine (Pepcid) 20 mg Q12 PO Last administered on 12/18/18 08:36; Admin Dose 20 MG; Start 12/06/18 at 21:00 Polyethylene Glycol (Miralax) 17 gm DAILY PO Last administered on 12/13/18 08:34; Admin Dose 17 GM; Start 12/07/18 at 16:00 Docusate Sodium (Colace) 200 mg BID PO Last administered on 12/13/18 08:35; Admin Dose 200 MG; Start 12/07/18 at 21:00 Lactulose (Enulose) 20 gm DAILY PRN PO CONSTIPATION Last administered on 12/07/18 17:07; Admin Dose 20 GM; Start 12/07/18 at 16:00 [facility] 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 PRN XX WOUND CARE; Start 12/08/18 at 02:30 Vancomycin HCl 1.25 gm/Sodium Chloride 250 ml @ 83.333 mls/ hr Q8H IVPB Last administered on 12/18/18 14:23; Admin Dose 83.333 MLS/HR; Start 12/08/18 at 22:00 Multivitamins/ Minerals (Theragran-M) 1 tab DAILY PO Last administered on 12/18/18 08:36; Admin Dose 1 TAB; Start 12/09/18 at 09:00 Ascorbic Acid (Vitamin C) 500 mg BID PO Last administered on 12/18/18 08:36; Admin Dose 500 MG; Start 12/09/18 at 09:00 Zinc Sulfate (Zinc Sulfate) 220 mg DAILY PO Last administered on 12/18/18 08:36; Admin Dose 220 MG; Start 12/09/18 at 09:00 Ibuprofen (Motrin) 400 mg Q6H PRN PO MILD PAIN(1-3) OR TEMP>38C Last administered on 12/12/18 08:39; Admin Dose 400 MG; Start 12/10/18 at 21:00 Trimethoprim/ Sulfamethoxazole (Bactrim (Ds)) 1 tab DAILY PO Last administered on 12/18/18 08:36; Admin Dose 1 TAB; Start 12/12/18 at 12:00 Alteplase, Recombinant (Cathflo (Activase)) 2 mg MAY REPEAT X1 PRN CATHETER IF CATHETER REMAINS OCCULUDED Last administered on 12/12/18 18:04; Admin Dose 2 MG; Start 12/12/18 at 14:30 Acetaminophen/ Hydrocodone Bitart ([place] (5/325)) 1 tab Q4H PRN PO MODERATE PAIN LEVEL 4-6 Last administered on 12/18/18 13:05; Admin Dose 1 TAB; Start 12/12/18 at 15:00 Fluconazole (Diflucan) 100 mg DAILY PO Last administered on 12/18/18at 08:36; Admin Dose 100 MG; Start 12/13/18 at 11:30 Meropenem/Sodium Chloride 50 ml @ 100 mls/hr Q8H IVPB Last administered on 12/18/18at 16:57; Admin Dose 100 MLS/HR; Start 12/13/18 at 17:00 Morphine Sulfate (morphine) 4 mg DAILY PRN IV SEVERE PAIN LEVEL 7-10; Start 12/16/18 at 15:30 Miscellaneous Information (*Rx Drug Level Order Reminder*) IGNACIO TR AT 1300 1300 ONCE XX ; Start 12/19/18 at 13:00; Stop 12/19/18 at 13:01 LAITH MCKEON Dec 18, 2018 18:21
[2018-12-18 20:00] VITALS: BP 96/58; PULSE 89; RESP 18
[2018-12-19] MEDS: MEROPENEM 1 GM/50ML(PMX) 50 ML IVPB SCH ×3 (01:04→17:36)
[2018-12-19 02:00] VITALS: BP 104/68; PULSE 88; RESP 18
[2018-12-19] MEDS: morphine 2 MG INJ IV PRN ×4 (05:54→17:42)
[2018-12-19] MEDS: VANCOMYCIN HCL 1.25 GM in SOD CHLORIDE 0.9% 250 ML IVPB SCH ×3 (05:54→20:37)
[2018-12-19 08:00] VITALS: BP 101/61; PULSE 85; RESP 18
[2018-12-19] MEDS: DOCUSATE SODIUM 100 MG CAP PO SCH ×2 (08:45→20:32)
[2018-12-19] MEDS: TRIMETHOPRIM/SULFAMETHOX (DS) TAB PO SCH (08:46)
[2018-12-19] MEDS: ZINC SULFATE 220 MG CAP PO SCH (08:46)
[2018-12-19] MEDS: ASCORBIC ACID 500 MG TAB PO SCH ×2 (08:46→20:31)
[2018-12-19] MEDS: ATROPINE 1% 5 ML OPH LEFT EYE SCH ×2 (08:46→20:37)
[2018-12-19] MEDS: POLYETHYLENE GLYCOL 17 GM PACKET PO SCH (08:46)
[2018-12-19] MEDS: PREDNISOLONE ACET 1% 5 ML OPH LEFT EYE SCH (08:46)
[2018-12-19] MEDS: MULTIVITAMINS/MINERALS TAB PO SCH (08:46)
[2018-12-19] MEDS: FLUCONAZOLE 100 MG TAB PO SCH (08:46)
[2018-12-19] MEDS: FAMOTIDINE 20 MG TAB PO SCH ×2 (08:47→20:32)
[2018-12-19] MEDS: EMTRICITABINE/TENOFOVIR TAB PO SCH (08:47)
[2018-12-19] MEDS: DAKINS 0.0125%(1/40) 473 ML SOLUTION TP SCH (08:47)
[2018-12-19] MEDS: LAMIVUDINE/ZIDOVUDINE TAB PO SCH ×2 (08:47→20:31)
[2018-12-19 14:00] VITALS: BP 94/59; PULSE 90; RESP 18
--- NOTE | 2018-12-19 15:03 | CONS ---
Assessment/Plan Assessment/Plan Hospital Course (Demo Recall) Alert, feels good, no fevers Indwelling: PIV Microbiology: Wound culture grew MRSA, repeat cx + Kleb, E coli, MRSA Antimicrobials: Vancomycin, Merrem, Truvada, Combivir, Diflucan, Bactrim Physical examination: Well-developed well-nourished middle-aged man who is alert in no distress. Head atraumatic normocephalic sclera nonicteric neck is supple chest rise symmetrical breath sounds clear heart: S1-S2 abdomen soft bowel sounds present extremities without cyanosis. Skin: Patient has dressing over his left side of the abdomen and bilateral wound vacs to hips Assessment: 1. S/p ongoing fevers==> resolved after PICC dc'd 2. Fornier's gangrene and necrotizing fasciitis, status post multiple recurrent debridement ==> latest one on 12/08/18 by urology 3. AIDS===> CD4 12/13 143 4. Status post renal failure Plan: Remains stable, continue abx, wound care per surgery and urology Consultation Date/Type/Reason Admit Date/Time Nov 30, 2018 at 20:47 Initial Consult Date 12/02/18 Type of Consult id Requesting Provider: ROBIN TAVAREZ MD Date/Time of Note DATE: 12/19/18 TIME: 15:03 Exam/Review of Systems Exam Vitals Vital Signs Date Temp Pulse Resp B/P (MAP) Pulse Ox O2 O2 Flow FiO2 Time Delivery Rate 12/19/18 98.9 85 18 101/61 96 Room Air 08:00 (74) Intake and Output 12/18/18 12/18/18 12/19/18 1515:00 23:00 07:00 IntakeIntake Total 1600 ml 620 ml 50 ml OutputOutput Total 950 ml 870 ml BalanceBalance 650 ml -250 ml 50 ml Results Result Diagram: 12/18/18 0456 Results 24hrs Laboratory Tests Test 12/19/18 13:19 Vancomycin Level Trough 15.6 Medications Medication Current Medications Ondansetron HCl (Zofran Inj) 4 mg Q6H PRN IV NAUSEA AND/OR VOMITING Last administered on 12/11/18at 17:52; Admin Dose 4 MG; Start 11/30/18 at 21:00 Acetaminophen (Tylenol Liquid) 650 mg Q6H PRN PO PAIN LEVEL 1-3 OR FEVER Last administered on 12/14/18 01:51; Admin Dose 650 MG; Start 11/30/18 at 21:00 Vancomycin HCl (Vanco Iv Per Pharmacy) VANCOMYCIN PER PHARMACY PER PROTOCOL XX ; Start 11/30/18 at 21:00 Morphine Sulfate (morphine) 2 mg Q2H PRN IV MOD TO SEVERE PAIN Last administered on 12/19/18 12:56; Admin Dose 2 MG; Start 12/04/18 at 11:30 Emtricitabine/ Tenofovir (Truvada) 1 tab DAILY PO Last administered on 08:47; Admin Dose 1 TAB; Start 12/06/18 at 09:00 Lamivudine/ Zidovudine (Combivir) 1 tab BID PO Last administered on 12/19/18 08:47; Admin Dose 1 TAB; Start 12/06/18 at 09:00 Sodium Hypochlorite (Dakins Diluted ()) 1 applic DAILY TP Last administered on 12/19/18 08:47; Admin Dose 1 APPLIC; Start 12/06/18 at 09:00 Prednisolone Acetate (Pred-Forte 1%) 1 drop DAILY LEFT EYE Last administered on 12/19/18 08:46; Admin Dose 1 DROP; Start 12/05/18 at 19:00 Atropine Sulfate (Atropine 1% Oph) 1 drop BID LEFT EYE Last administered on 12/19/18 08:46; Admin Dose 1 DROP; Start 12/07/18 at 21:00 Guaifenesin (Robitussin Liquid Cup) 100 mg Q4H PRN PO COUGH Last administered on 12/05/18 20:07; Admin Dose 100 MG; Start 12/05/18 at 19:00 Famotidine (Pepcid) 20 mg Q12 PO Last administered on 12/19/18 08:47; Admin Dose 20 MG; Start 12/06/18 at 21:00 Polyethylene Glycol (Miralax) 17 gm DAILY PO Last administered on 12/13/18 08:34; Admin Dose 17 GM; Start 12/07/18 at 16:00 Docusate Sodium (Colace) 200 mg BID PO Last administered on 12/13/18 08:35; Admin Dose 200 MG; Start 12/07/18 at 21:00 Lactulose (Enulose) 20 gm DAILY PRN PO CONSTIPATION Last administered on 12/07/18 17:07; Admin Dose 20 GM; Start 12/07/18 at 16:00 Miscellaneous Information (Pending [facility] Order For Wound Care) 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 PRN XX WOUND CARE; Start 12/08/18 at 02:30 Vancomycin HCl 1.25 gm/Sodium Chloride 250 ml @ 83.333 mls/ hr Q8H IVPB Last administered on 12/19/18 14:09; Admin Dose 83.333 MLS/HR; Start 12/08/18 at 22:00 Multivitamins/ Minerals (Theragran-M) 1 tab DAILY PO Last administered on 12/19/18 08:46; Admin Dose 1 TAB; Start 12/09/18 at 09:00 Ascorbic Acid (Vitamin C) 500 mg BID PO Last administered on 12/19/18 08:46; Admin Dose 500 MG; Start 12/09/18 at 09:00 Zinc Sulfate (Zinc Sulfate) 220 mg DAILY PO Last administered on 12/19/18 08:46; Admin Dose 220 MG; Start 12/09/18 at 09:00 Ibuprofen (Motrin) 400 mg Q6H PRN PO MILD PAIN(1-3) OR TEMP>38C Last administered on 12/12/18 08:39; Admin Dose 400 MG; Start 12/10/18 at 21:00 Trimethoprim/ Sulfamethoxazole (Bactrim (Ds)) 1 tab DAILY PO Last administered on 12/19/18 08:46; Admin Dose 1 TAB; Start 12/12/18 at 12:00 Alteplase, Recombinant (Cathflo (Activase)) 2 mg MAY REPEAT X1 PRN CATHETER IF CATHETER REMAINS OCCULUDED Last administered on 12/12/18 18:04; Admin Dose 2 MG; Start 12/12/18 at 14:30 Acetaminophen/ Hydrocodone Bitart ([place] (5/325)) 1 tab Q4H PRN PO MODERATE PAIN LEVEL 4-6 Last administered on 12/18/18 21:48; Admin Dose 1 TAB; Start 12/12/18 at 15:00 Fluconazole (Diflucan) 100 mg DAILY PO Last administered on 12/19/18 08:46; Admin Dose 100 MG; Start 12/13/18 at 11:30 Meropenem/Sodium Chloride 50 ml @ 100 mls/hr Q8H IVPB Last administered on 12/19/18at 09:35; Admin Dose 100 MLS/HR; Start 12/13/18 at 17:00 Morphine Sulfate (morphine) 4 mg DAILY PRN IV SEVERE PAIN LEVEL 7-10; Start at 15:30 CRYSTAL TALAVERA NP Dec 19, 2018 15:03
[2018-12-19 20:00] VITALS: BP 102/59; PULSE 91; RESP 20
--- NOTE | 2018-12-19 20:12 | CONS ---
Consult Date/Type/Reason Admit Date/Time Nov 30, 2018 at 20:47 Initial Consult Date 12/02/18 Type of Consultation: Urology Reason for Consultation Nida gangrene and necrotizing fasciitis Requesting Provider: ROBIN TAVAREZ MD Date/Time of Note DATE: 12/19/18 TIME: 20:10 Subjective Patient states he is in pain now as they did change the wound packing about an hour earlier Objective Vitals Vital Signs Date Temp Pulse Resp B/P (MAP) Pulse Ox O2 O2 Flow FiO2 Time Delivery Rate 12/19/18 98.3 91 20 102/59 98 20:00 (73) 12/19/18 Room Air 14:00 Intake and Output 12/18/18 12/18/18 12/19/18 1515:00 23:00 07:00 IntakeIntake Total 1600 ml 620 ml 50 ml OutputOutput Total 950 ml 870 ml BalanceBalance 650 ml -250 ml 50 ml Exam According to the staff his wound is getting better. Results/Medications Result Diagram: 12/18/18 0456 Results 24 hrs Laboratory Tests Test 12/19/18 13:19 Vancomycin Level Trough 15.6 Home Meds Reported Medications Atropine Sulfate/0.9 %Sod Chlr (Atropine 0.01%-Ns Eye Drops) 10 Ml Drops, 1 ML OP BID, #1 12/05/18 Prednisolone Acetate* (Pred Forte*) 5 Ml Susp, 1 DROP LEFT EYE Q1HOUR, EA 12/04/18 Medications Current Medications Ondansetron HCl (Zofran Inj) 4 mg Q6H PRN IV NAUSEA AND/OR VOMITING Last administered on 12/11/18at 17:52; Admin Dose 4 MG; Start 11/30/18 at 21:00 Acetaminophen (Tylenol Liquid) 650 mg Q6H PRN PO PAIN LEVEL 1-3 OR FEVER Last administered on 12/14/18at 01:51; Admin Dose 650 MG; Start 11/30/18 at 21:00 Vancomycin HCl (Vanco Iv Per Pharmacy) VANCOMYCIN PER PHARMACY PER PROTOCOL XX ; Start 11/30/18 at 21:00 Morphine Sulfate (morphine) 2 mg Q2H PRN IV MOD TO SEVERE PAIN Last administered on 12/19/18at 17:42; Admin Dose 2 MG; Start 12/04/18 at 11:30 Emtricitabine/ Tenofovir (Truvada) 1 tab DAILY PO Last administered on 12/19/18 08:47; Admin Dose 1 TAB; Start 12/06/18 at 09:00 Lamivudine/ Zidovudine (Combivir) 1 tab BID PO Last administered on 12/19/18 08:47; Admin Dose 1 TAB; Start 12/06/18 at 09:00 Sodium Hypochlorite (Dakins Diluted ()) 1 applic DAILY TP Last administered on 12/19/18 08:47; Admin Dose 1 APPLIC; Start 12/06/18 at 09:00 Prednisolone Acetate (Pred-Forte 1%) 1 drop DAILY LEFT EYE Last administered on 12/19/18 08:46; Admin Dose 1 DROP; Start 12/05/18 at 19:00 Atropine Sulfate (Atropine 1% Oph) 1 drop BID LEFT EYE Last administered on 12/19/18 08:46; Admin Dose 1 DROP; Start 12/07/18 at 21:00 Guaifenesin (Robitussin Liquid Cup) 100 mg Q4H PRN PO COUGH Last administered on 12/05/18 20:07; Admin Dose 100 MG; Start 12/05/18 at 19:00 Famotidine (Pepcid) 20 mg Q12 PO Last administered on 12/19/18 08:47; Admin Dose 20 MG; Start 12/06/18 at 21:00 Polyethylene Glycol (Miralax) 17 gm DAILY PO Last administered on 12/13/18 08:34; Admin Dose 17 GM; Start 12/07/18 at 16:00 Docusate Sodium (Colace) 200 mg BID PO Last administered on 12/13/18 08:35; Admin Dose 200 MG; Start 12/07/18 at 21:00 Lactulose (Enulose) 20 gm DAILY PRN PO CONSTIPATION Last administered on 12/07/18 17:07; Admin Dose 20 GM; Start 12/07/18 at 16:00 [facility] 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 PRN XX WOUND CARE; Start 12/08/18 at 02:30 Vancomycin HCl 1.25 gm/Sodium Chloride 250 ml @ 83.333 mls/ hr Q8H IVPB Last administered on 12/19/18 14:09; Admin Dose 83.333 MLS/HR; Start 12/08/18 at 22:00 Multivitamins/ Minerals (Theragran-M) 1 tab DAILY PO Last administered on 12/19/18 08:46; Admin Dose 1 TAB; Start 12/09/18 at 09:00 Ascorbic Acid (Vitamin C) 500 mg BID PO Last administered on 12/19/18 08:46; Admin Dose 500 MG; Start 12/09/18 at 09:00 Zinc Sulfate (Zinc Sulfate) 220 mg DAILY PO Last administered on 12/19/18 08:46; Admin Dose 220 MG; Start 12/09/18 at 09:00 Ibuprofen (Motrin) 400 mg Q6H PRN PO MILD PAIN(1-3) OR TEMP>38C Last administered on 12/12/18 08:39; Admin Dose 400 MG; Start 12/10/18 at 21:00 Trimethoprim/ Sulfamethoxazole (Bactrim (Ds)) 1 tab DAILY PO Last administered on 12/19/18 08:46; Admin Dose 1 TAB; Start 12/12/18 at 12:00 Alteplase, Recombinant (Cathflo (Activase)) 2 mg MAY REPEAT X1 PRN CATHETER IF CATHETER REMAINS OCCULUDED Last administered on 12/12/18 18:04; Admin Dose 2 MG; Start 12/12/18 at 14:30 Acetaminophen/ Hydrocodone Bitart ([place] (5/325)) 1 tab Q4H PRN PO MODERATE PAIN LEVEL 4-6 Last administered on 12/18/18 21:48; Admin Dose 1 TAB; Start at 15:00 Fluconazole (Diflucan) 100 mg DAILY PO Last administered on 12/19/18 08:46; Admin Dose 100 MG; Start 12/13/18 at 11:30 Meropenem/Sodium Chloride 50 ml @ 100 mls/hr Q8H IVPB Last administered on 12/19/18 17:36; Admin Dose 100 MLS/HR; Start 12/13/18 at 17:00 Morphine Sulfate (morphine) 4 mg DAILY PRN IV SEVERE PAIN LEVEL 7-10; Start 12/16/18 at 15:30 Assessment/Plan Hospital Course (Demo Recall) 42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 He underwent incision and drainage of the abdominal wall all the way up to the lower ribs on the left side and also of the left thigh and right inguinal area and debridement of the scrotum and perineal area. The wounds are getting better. He underwent debridement and incision and drainage of a right buttock abscess. The culture from the buttock grew MRSA. He is doing better. His CBC showed a normal white count. At this stage the patient will need plastic surgery consultation and the caser in has been working on that either to have a plastic surgeon see him here or transfer him to a facility where they can do the skin graft for him. In the meantime we will continue to change the packing and if there is any need for debridement we will do it. GWEN BUCK MD Dec 19, 2018 20:12
[2018-12-19] MEDS: HYDROCODONE/APAP (5/325) TAB PO PRN (20:31)
[2018-12-20] MEDS: morphine 2 MG INJ IV PRN ×7 (00:29→22:05)
[2018-12-20] MEDS: MEROPENEM 1 GM/50ML(PMX) 50 ML IVPB SCH ×2 (01:00→10:16)
[2018-12-20 02:09] VITALS: BP 96/60; PULSE 82; RESP 18
[2018-12-20] MEDS: VANCOMYCIN HCL 1.25 GM in SOD CHLORIDE 0.9% 250 ML IVPB SCH ×3 (05:42→22:05)
[2018-12-20 08:00] VITALS: BP 94/51; PULSE 86; RESP 16
[2018-12-20] MEDS: POLYETHYLENE GLYCOL 17 GM PACKET PO SCH ×2 (09:00→10:15)
[2018-12-20] MEDS: DOCUSATE SODIUM 100 MG CAP PO SCH ×3 (09:00→21:00)
[2018-12-20] MEDS: LAMIVUDINE/ZIDOVUDINE TAB PO SCH (10:12)
[2018-12-20] MEDS: ZINC SULFATE 220 MG CAP PO SCH (10:12)
[2018-12-20] MEDS: TRIMETHOPRIM/SULFAMETHOX (DS) TAB PO SCH (10:12)
[2018-12-20] MEDS: ASCORBIC ACID 500 MG TAB PO SCH ×2 (10:15→22:04)
[2018-12-20] MEDS: EMTRICITABINE/TENOFOVIR TAB PO SCH (10:15)
[2018-12-20] MEDS: ATROPINE 1% 5 ML OPH LEFT EYE SCH ×2 (10:15→22:04)
[2018-12-20] MEDS: MULTIVITAMINS/MINERALS TAB PO SCH (10:15)
[2018-12-20] MEDS: FAMOTIDINE 20 MG TAB PO SCH ×2 (10:15→22:04)
[2018-12-20] MEDS: FLUCONAZOLE 100 MG TAB PO SCH (10:15)
[2018-12-20] MEDS: PREDNISOLONE ACET 1% 5 ML OPH LEFT EYE SCH (10:15)
[2018-12-20] MEDS: DAKINS 0.0125%(1/40) 473 ML SOLUTION TP SCH (10:17)
[2018-12-20] MEDS: morphine 4 MG/ML VIAL IV PRN (11:59)
--- NOTE | 2018-12-20 13:34 | CONS ---
Assessment/Plan Assessment/Plan Hospital Course (Demo Recall) Alert, feels good, no fevers Indwelling: PIV Microbiology: Wound culture grew MRSA, repeat cx + Kleb, E coli, MRSA Antimicrobials: Vancomycin, Merrem, Truvada, Combivir, Diflucan, Bactrim Physical examination: Well-developed well-nourished middle-aged man who is alert in no distress. Head atraumatic normocephalic sclera nonicteric neck is supple chest rise symmetrical breath sounds clear heart: S1-S2 abdomen soft bowel sounds present extremities without cyanosis. Skin: Patient has dressing over his left side of the abdomen and bilateral wound vacs to hips Assessment: 1. S/p ongoing fevers==> resolved after PICC dc'd 2. Fornier's gangrene and necrotizing fasciitis, status post multiple recurrent debridement ==> latest one on 12/08/18 by urology 3. AIDS===> CD4 12/13 143 4. Status post renal failure Plan: Remains stable, continue abx, wound care per surgery and urology change Merrem to Cipro Consultation Date/Type/Reason Admit Date/Time Nov 30, 2018 at 20:47 Initial Consult Date 12/02/18 Type of Consult id Requesting Provider: ROBIN TAVAREZ MD Date/Time of Note DATE: 12/20/18 TIME: 13:34 Exam/Review of Systems Exam Vitals Vital Signs Date Temp Pulse Resp B/P (MAP) Pulse Ox O2 O2 Flow FiO2 Time Delivery Rate 12/20/18 98.1 86 16 94/51 (65) 08:00 12/20/18 98 02:09 12/19/18 Room Air 14:00 Intake and Output 12/19/18 12/19/18 12/20/18 1515:00 23:00 07:00 IntakeIntake Total 1740 ml 700 ml 300 ml OutputOutput Total 1000 ml 300 ml 600 ml BalanceBalance 740 ml 400 ml -300 ml Results Result Diagram: 12/18/18 0456 Medications Medication Current Medications Ondansetron HCl (Zofran Inj) 4 mg Q6H PRN IV NAUSEA AND/OR VOMITING Last administered on 12/11/18at 17:52; Admin Dose 4 MG; Start 11/30/18 at 21:00 Acetaminophen (Tylenol Liquid) 650 mg Q6H PRN PO PAIN LEVEL 1-3 OR FEVER Last administered on 12/14/18 01:51; Admin Dose 650 MG; Start 11/30/18 at 21:00 Vancomycin HCl (Vanco Iv Per Pharmacy) VANCOMYCIN PER PHARMACY PER PROTOCOL XX ; Start 11/30/18 at 21:00 Morphine Sulfate (morphine) 2 mg Q2H PRN IV MOD TO SEVERE PAIN Last administered on 12/20/18 13:17; Admin Dose 2 MG; Start 12/04/18 at 11:30 Emtricitabine/ Tenofovir (Truvada) 1 tab DAILY PO Last administered on 12/20/18 10:15; Admin Dose 1 TAB; Start 12/06/18 at 09:00 Lamivudine/ Zidovudine (Combivir) 1 tab BID PO Last administered on 12/20/18 10:12; Admin Dose 1 TAB; Start 12/06/18 at 09:00 Sodium Hypochlorite (Dakins Diluted ()) 1 applic DAILY TP Last administered on 12/20/18 10:17; Admin Dose 1 APPLIC; Start 12/06/18 at 09:00 Prednisolone Acetate (Pred-Forte 1%) 1 drop DAILY LEFT EYE Last administered on 12/20/18 10:15; Admin Dose 1 DROP; Start 12/05/18 at 19:00 Atropine Sulfate (Atropine 1% Oph) 1 drop BID LEFT EYE Last administered on 12/20/18 10:15; Admin Dose 1 DROP; Start 12/07/18 at 21:00 Guaifenesin (Robitussin Liquid Cup) 100 mg Q4H PRN PO COUGH Last administered on 12/05/18 20:07; Admin Dose 100 MG; Start 12/05/18 at 19:00 Famotidine (Pepcid) 20 mg Q12 PO Last administered on 12/20/18 10:15; Admin Dose 20 MG; Start 12/06/18 at 21:00 Polyethylene Glycol (Miralax) 17 gm DAILY PO Last administered on 12/13/18 08:34; Admin Dose 17 GM; Start 12/07/18 at 16:00 Docusate Sodium (Colace) 200 mg BID PO Last administered on 12/13/18 08:35; Admin Dose 200 MG; Start 12/07/18 at 21:00 Lactulose (Enulose) 20 gm DAILY PRN PO CONSTIPATION Last administered on 12/07/18 17:07; Admin Dose 20 GM; Start 12/07/18 at 16:00 Miscellaneous Information (Pending [facility] Order For Wound Care) 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 PRN XX WOUND CARE; Start 12/08/18 at 02:30 Vancomycin HCl 1.25 gm/Sodium Chloride 250 ml @ 83.333 mls/ hr Q8H IVPB Last administered on 12/20/18 05:42; Admin Dose 83.333 MLS/HR; Start 12/08/18 at 22:00 Multivitamins/ Minerals (Theragran-M) 1 tab DAILY PO Last administered on 12/20/18 10:15; Admin Dose 1 TAB; Start 12/09/18 at 09:00 Ascorbic Acid (Vitamin C) 500 mg BID PO Last administered on 12/20/18 10:15; Admin Dose 500 MG; Start 12/09/18 at 09:00 Zinc Sulfate (Zinc Sulfate) 220 mg DAILY PO Last administered on 12/20/18 10:12; Admin Dose 220 MG; Start 12/09/18 at 09:00 Ibuprofen (Motrin) 400 mg Q6H PRN PO MILD PAIN(1-3) OR TEMP>38C Last administered on 12/12/18 08:39; Admin Dose 400 MG; Start 12/10/18 at 21:00 Trimethoprim/ Sulfamethoxazole (Bactrim (Ds)) 1 tab DAILY PO Last administered on 12/20/18 10:12; Admin Dose 1 TAB; Start 12/12/18 at 12:00 Alteplase, Recombinant (Cathflo (Activase)) 2 mg MAY REPEAT X1 PRN CATHETER IF CATHETER REMAINS OCCULUDED Last administered on 12/12/18 18:04; Admin Dose 2 MG; Start 12/12/18 at 14:30 Acetaminophen/ Hydrocodone Bitart ([place] (5/325)) 1 tab Q4H PRN PO MODERATE PAIN LEVEL 4-6 Last administered on 12/19/18 20:31; Admin Dose 1 TAB; Start 12/12/18 at 15:00 Fluconazole (Diflucan) 100 mg DAILY PO Last administered on 12/20/18 10:15; Admin Dose 100 MG; Start 12/13/18 at 11:30 Meropenem/Sodium Chloride 50 ml @ 100 mls/hr Q8H IVPB Last administered on 12/20/18at 10:16; Admin Dose 100 MLS/HR; Start 12/13/18 at 17:00 Morphine Sulfate (morphine) 4 mg DAILY PRN IV SEVERE PAIN LEVEL 7-10 Last administered on 12/20/18at 11:59; Admin Dose 4 MG; Start 12/16/18 at 15:30 CRYSTAL TALAVERA NP Dec 20, 2018 13:34
--- NOTE | 2018-12-20 14:24 | PN ---
Date/Time of Note Date/Time of Note DATE: 12/20/18 TIME: 14:23 Assessment/Plan VTE Prophylaxis Risk score (from Nsg)>0 risk: 3 SCD applied (from Nsg): Yes Pharmacological prophylaxis: heparin Lines/Catheters IV Catheter Type (from Nrsg): Peripheral IV Urinary Cath still in place: No Assessment/Plan Hospital Course Appears well no distress RRR CTAB Soft nt nd Wound vac applied to wound of LLQ Buttocks abscess, packed [place] in place 42 yo male with HIV/AIDS who presented with fourniers gangrene and necrotizing fasciitis of abdmoen - s/p I and D procedures per She Damon and Mela who are following. No plan for repeat procedures at this time though may eventually need a skin graft by plastic surgery - Wound care, wound vac - Abx per ID HIV/AIDS: - ARVs and ppx per ID Hyponatremia: - Urine studies suggested hypovolemia as etiology. Now improving Anemia: - Adequate iron stores. This is anemia of inflammation Dispo: Will likely need to transfer to [facility] for plastic surgery Result Diagram: 12/18/18 0456 Subjective 24 Hr Interval Summary Free Text/Dictation Doing well No complaints Awaiting transfer Exam/Review of Systems Exam Vitals Vital Signs Date Temp Pulse Resp B/P (MAP) Pulse Ox O2 O2 Flow FiO2 Time Delivery Rate 12/20/18 98.1 86 16 94/51 (65) 08:00 12/20/18 98 02:09 12/19/18 Room Air 14:00 Intake and Output 12/19/18 12/19/18 12/20/18 1515:00 23:00 07:00 IntakeIntake Total 1740 ml 700 ml 300 ml OutputOutput Total 1000 ml 300 ml 600 ml BalanceBalance 740 ml 400 ml -300 ml Medications Medication Current Medications Ondansetron HCl (Zofran Inj) 4 mg Q6H PRN IV NAUSEA AND/OR VOMITING Last administered on 12/11/18at 17:52; Admin Dose 4 MG; Start 11/30/18 at 21:00 Acetaminophen (Tylenol Liquid) 650 mg Q6H PRN PO PAIN LEVEL 1-3 OR FEVER Last administered on 12/14/18at 01:51; Admin Dose 650 MG; Start 11/30/18 at 21:00 Vancomycin HCl (Vanco Iv Per Pharmacy) VANCOMYCIN PER PHARMACY PER PROTOCOL XX ; Start 11/30/18 at 21:00 Morphine Sulfate (morphine) 2 mg Q2H PRN IV MOD TO SEVERE PAIN Last administered on 12/20/18 13:17; Admin Dose 2 MG; Start 12/04/18 at 11:30 Emtricitabine/ Tenofovir (Truvada) 1 tab DAILY PO Last administered on 12/20/18 10:15; Admin Dose 1 TAB; Start 12/06/18 at 09:00 Lamivudine/ Zidovudine (Combivir) 1 tab BID PO Last administered on 12/20/18 10:12; Admin Dose 1 TAB; Start 12/06/18 at 09:00 Sodium Hypochlorite (Dakins Diluted ()) 1 applic DAILY TP Last administered on 12/20/18 10:17; Admin Dose 1 APPLIC; Start 12/06/18 at 09:00 Prednisolone Acetate (Pred-Forte 1%) 1 drop DAILY LEFT EYE Last administered on 12/20/18 10:15; Admin Dose 1 DROP; Start 12/05/18 at 19:00 Atropine Sulfate (Atropine 1% Oph) 1 drop BID LEFT EYE Last administered on 12/20/18 10:15; Admin Dose 1 DROP; Start 12/07/18 at 21:00 Guaifenesin (Robitussin Liquid Cup) 100 mg Q4H PRN PO COUGH Last administered on 12/05/18 20:07; Admin Dose 100 MG; Start 12/05/18 at 19:00 Famotidine (Pepcid) 20 mg Q12 PO Last administered on 12/20/18 10:15; Admin Dose 20 MG; Start 12/06/18 at 21:00 Polyethylene Glycol (Miralax) 17 gm DAILY PO Last administered on 12/13/18 08:34; Admin Dose 17 GM; Start 12/07/18 at 16:00 Docusate Sodium (Colace) 200 mg BID PO Last administered on 12/13/18 08:35; Admin Dose 200 MG; Start 12/07/18 at 21:00 Lactulose (Enulose) 20 gm DAILY PRN PO CONSTIPATION Last administered on 12/07/18 17:07; Admin Dose 20 GM; Start 12/07/18 at 16:00 Miscellaneous Information (Pending [facility] Order For Wound Care) 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 PRN XX WOUND CARE; Start 12/08/18 at 02:30 Vancomycin HCl 1.25 gm/Sodium Chloride 250 ml @ 83.333 mls/ hr Q8H IVPB Last administered on 12/20/18 05:42; Admin Dose 83.333 MLS/HR; Start 12/08/18 at 22:00 Multivitamins/ Minerals (Theragran-M) 1 tab DAILY PO Last administered on 12/20/18 10:15; Admin Dose 1 TAB; Start 12/09/18 at 09:00 Ascorbic Acid (Vitamin C) 500 mg BID PO Last administered on 12/20/18 10:15; Admin Dose 500 MG; Start 12/09/18 at 09:00 Zinc Sulfate (Zinc Sulfate) 220 mg DAILY PO Last administered on 12/20/18 10:12; Admin Dose 220 MG; Start 12/09/18 at 09:00 Ibuprofen (Motrin) 400 mg Q6H PRN PO MILD PAIN(1-3) OR TEMP>38C Last administered on 12/12/18 08:39; Admin Dose 400 MG; Start 12/10/18 at 21:00 Trimethoprim/ Sulfamethoxazole (Bactrim (Ds)) 1 tab DAILY PO Last administered on 12/20/18 10:12; Admin Dose 1 TAB; Start 12/12/18 at 12:00 Alteplase, Recombinant (Cathflo (Activase)) 2 mg MAY REPEAT X1 PRN CATHETER IF CATHETER REMAINS OCCULUDED Last administered on 12/12/18 18:04; Admin Dose 2 MG; Start 12/12/18 at 14:30 Acetaminophen/ Hydrocodone Bitart ([place] (5/325)) 1 tab Q4H PRN PO MODERATE PAIN LEVEL 4-6 Last administered on 12/19/18 20:31; Admin Dose 1 TAB; Start 12/12/18 at 15:00 Fluconazole (Diflucan) 100 mg DAILY PO Last administered on 12/20/18 10:15; Admin Dose 100 MG; Start 12/13/18 at 11:30 Morphine Sulfate (morphine) 4 mg DAILY PRN IV SEVERE PAIN LEVEL 7-10 Last administered on 12/20/18 11:59; Admin Dose 4 MG; Start 12/16/18 at 15:30 Ciprofloxacin (Cipro) 500 mg BID@06,18 PO ; Start 12/20/18 at 18:00 JIMI SCHAFER MD Dec 20, 2018 14:24
[2018-12-20 14:30] VITALS: BP 101/61; PULSE 88; RESP 16
[2018-12-20] MEDS: CIPROFLOXACIN 500 MG TAB PO SCH (17:29)
--- NOTE | 2018-12-20 20:25 | CONS ---
Consult Date/Type/Reason Admit Date/Time Nov 30, 2018 at 20:47 Initial Consult Date 12/02/18 Type of Consultation: Urology Reason for Consultation Nida gangrene and necrotizing fasciitis Requesting Provider: ROBIN TAVAREZ MD Date/Time of Note DATE: 12/20/18 TIME: 20:23 Subjective Patient states he still has some pain as a did change his wound VAC today and his wound packing Objective Vitals Vital Signs Date Temp Pulse Resp B/P (MAP) Pulse Ox O2 O2 Flow FiO2 Time Delivery Rate 12/20/18 98.0 88 16 101/61 99 14:30 (74) 12/19/18 Room Air 14:00 Intake and Output 12/19/18 12/19/18 12/20/18 1515:00 23:00 07:00 IntakeIntake Total 1740 ml 700 ml 300 ml OutputOutput Total 1000 ml 300 ml 600 ml BalanceBalance 740 ml 400 ml -300 ml Exam Wounds are covered with the packing and dressing Results/Medications Result Diagram: 12/18/18 0456 Home Meds Reported Medications Atropine Sulfate/0.9 %Sod Chlr (Atropine 0.01%-Ns Eye Drops) 10 Ml Drops, 1 ML OP BID, #1 12/05/18 Prednisolone Acetate* (Pred Forte*) 5 Ml Susp, 1 DROP LEFT EYE Q1HOUR, EA 12/04/18 Medications Current Medications Ondansetron HCl (Zofran Inj) 4 mg Q6H PRN IV NAUSEA AND/OR VOMITING Last administered on 12/11/18at 17:52; Admin Dose 4 MG; Start 11/30/18 at 21:00 Acetaminophen (Tylenol Liquid) 650 mg Q6H PRN PO PAIN LEVEL 1-3 OR FEVER Last administered on 12/14/18at 01:51; Admin Dose 650 MG; Start 11/30/18 at 21:00 Vancomycin HCl (Vanco Iv Per Pharmacy) VANCOMYCIN PER PHARMACY PER PROTOCOL XX ; Start 11/30/18 at 21:00 Morphine Sulfate (morphine) 2 mg Q2H PRN IV MOD TO SEVERE PAIN Last administered on 12/20/18at 19:39; Admin Dose 2 MG; Start 12/04/18 at 11:30 Emtricitabine/ Tenofovir (Truvada) 1 tab DAILY PO Last administered on 12/20/18at 10:15; Admin Dose 1 TAB; Start 12/06/18 at 09:00 Sodium Hypochlorite (Dakins Diluted (40)) 1 applic DAILY TP Last administered on 12/20/18 10:17; Admin Dose 1 APPLIC; Start 12/06/18 at 09:00 Prednisolone Acetate (Pred-Forte 1%) 1 drop DAILY LEFT EYE Last administered on 12/20/18 10:15; Admin Dose 1 DROP; Start 12/05/18 at 19:00 Atropine Sulfate (Atropine 1% Oph) 1 drop BID LEFT EYE Last administered on 12/20/18 10:15; Admin Dose 1 DROP; Start 12/07/18 at 21:00 Guaifenesin (Robitussin Liquid Cup) 100 mg Q4H PRN PO COUGH Last administered on 12/05/18 20:07; Admin Dose 100 MG; Start 12/05/18 at 19:00 Famotidine (Pepcid) 20 mg Q12 PO Last administered on 12/20/18 10:15; Admin Dose 20 MG; Start 12/06/18 at 21:00 Polyethylene Glycol (Miralax) 17 gm DAILY PO Last administered on 12/13/18 08:34; Admin Dose 17 GM; Start 12/07/18 at 16:00 Docusate Sodium (Colace) 200 mg BID PO Last administered on 12/13/18 08:35; Admin Dose 200 MG; Start 12/07/18 at 21:00 Lactulose (Enulose) 20 gm DAILY PRN PO CONSTIPATION Last administered on 12/07/18 17:07; Admin Dose 20 GM; Start 12/07/18 at 16:00 Miscellaneous Information (Pending [facility] Order For Wound Care) 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 PRN XX WOUND CARE; Start 12/08/18 at 02:30 Vancomycin HCl 1.25 gm/Sodium Chloride 250 ml @ 83.333 mls/ hr Q8H IVPB Last administered on 12/20/18 14:34; Admin Dose 83.333 MLS/HR; Start 12/08/18 at 22:00 Multivitamins/ Minerals (Theragran-M) 1 tab DAILY PO Last administered on 12/20/18 10:15; Admin Dose 1 TAB; Start 12/09/18 at 09:00 Ascorbic Acid (Vitamin C) 500 mg BID PO Last administered on 12/20/18 10:15; Admin Dose 500 MG; Start 12/09/18 at 09:00 Zinc Sulfate (Zinc Sulfate) 220 mg DAILY PO Last administered on 12/20/18 10:12; Admin Dose 220 MG; Start 12/09/18 at 09:00 Ibuprofen (Motrin) 400 mg Q6H PRN PO MILD PAIN(1-3) OR TEMP>38C Last administe red on 12/12/18 08:39; Admin Dose 400 MG; Start 12/10/18 at 21:00 Trimethoprim/ Sulfamethoxazole (Bactrim (Ds)) 1 tab DAILY PO Last administered on 12/20/18 10:12; Admin Dose 1 TAB; Start 12/12/18 at 12:00 Alteplase, Recombinant (Cathflo (Activase)) 2 mg MAY REPEAT X1 PRN CATHETER IF CATHETER REMAINS OCCULUDED Last administered on 12/12/18 18:04; Admin Dose 2 MG; Start 12/12/18 at 14:30 Acetaminophen/ Hydrocodone Bitart ([place] (5/325)) 1 tab Q4H PRN PO MODERATE PAIN LEVEL 4-6 Last administered on 12/19/18 20:31; Admin Dose 1 TAB; Start 12/12/18 at 15:00 Fluconazole (Diflucan) 100 mg DAILY PO Last administered on 12/20/18 10:15; Admin Dose 100 MG; Start 12/13/18 at 11:30 Morphine Sulfate (morphine) 4 mg DAILY PRN IV SEVERE PAIN LEVEL 7-10 Last administered on 12/20/18 11:59; Admin Dose 4 MG; Start 12/16/18 at 15:30 Ciprofloxacin (Cipro) 500 mg BID@06,18 PO Last administered on 12/20/18 17:29; Admin Dose 500 MG; Start 12/20/18 at 18:00 Zidovudine (Retrovir) 300 mg BID PO ; Start 12/20/18 at 21:00 Assessment/Plan Hospital Course (Demo Recall) 42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 He underwent incision and drainage of the abdominal wall all the way up to the lower ribs on the left side and also of the left thigh and right inguinal area and debridement of the scrotum and perineal area. The wounds are getting better. He underwent debridement and incision and drainage of a right buttock abscess. The culture from the buttock grew MRSA. He is doing better. His CBC showed a normal white count. At this stage the patient will need plastic surgery consultation and the rifle case repairer has been working on that either to have a plastic surgeon see him here or transfer him to a facility where they can do the skin graft for him. In the meantime we will continue present treatment GWEN BUCK MD Dec 20, 2018 20:25
[2018-12-20 20:46] VITALS: BP 90/52; PULSE 88; RESP 19
[2018-12-20] MEDS: ZIDOVUDINE 100 MG CAP PO SCH (22:04)
[2018-12-21 02:00] VITALS: BP 97/60; PULSE 81; RESP 19
[2018-12-21] MEDS: CIPROFLOXACIN 500 MG TAB PO SCH ×2 (06:11→17:34)
[2018-12-21] MEDS: VANCOMYCIN HCL 1.25 GM in SOD CHLORIDE 0.9% 250 ML IVPB SCH ×3 (06:11→22:27)
[2018-12-21] MEDS: morphine 2 MG INJ IV PRN ×4 (06:34→20:47)
[2018-12-21 07:52] VITALS: BP 99/62; PULSE 81; RESP 16
[2018-12-21] MEDS: FLUCONAZOLE 100 MG TAB PO SCH (08:36)
[2018-12-21] MEDS: PREDNISOLONE ACET 1% 5 ML OPH LEFT EYE SCH (08:36)
[2018-12-21] MEDS: TRIMETHOPRIM/SULFAMETHOX (DS) TAB PO SCH (08:36)
[2018-12-21] MEDS: FAMOTIDINE 20 MG TAB PO SCH ×2 (08:36→20:51)
[2018-12-21] MEDS: ATROPINE 1% 5 ML OPH LEFT EYE SCH ×2 (08:36→20:50)
[2018-12-21] MEDS: ZINC SULFATE 220 MG CAP PO SCH (08:36)
[2018-12-21] MEDS: ASCORBIC ACID 500 MG TAB PO SCH ×2 (08:36→20:51)
[2018-12-21] MEDS: POLYETHYLENE GLYCOL 17 GM PACKET PO SCH (08:37)
[2018-12-21] MEDS: MULTIVITAMINS/MINERALS TAB PO SCH (08:37)
[2018-12-21] MEDS: DOCUSATE SODIUM 100 MG CAP PO SCH ×2 (08:37→20:51)
[2018-12-21] MEDS: ZIDOVUDINE 100 MG CAP PO SCH (09:39)
[2018-12-21] MEDS: EMTRICITABINE/TENOFOVIR TAB PO SCH (09:39)
--- NOTE | 2018-12-21 10:55 | CONS ---
Assessment/Plan Assessment/Plan Hospital Course (Demo Recall) Looks comfortable, no fevers Indwelling: PIV Microbiology: Wound culture grew MRSA, repeat cx + Kleb, E coli, MRSA Antimicrobials: Vancomycin, Cipro, Truvada, Retrovir, Diflucan, Bactrim Physical examination: Well-developed well-nourished middle-aged man who is alert in no distress. Head atraumatic normocephalic sclera nonicteric neck is supple chest rise symmetrical breath sounds clear heart: S1-S2 abdomen soft bowel sounds present extremities without cyanosis. Skin: Patient has dressing over his left side of the abdomen and bilateral wound vacs to hips Assessment: 1. S/p ongoing fevers==> resolved after PICC dc'd 2. Fornier's gangrene and necrotizing fasciitis, status post multiple recurrent debridement ==> latest one on 12/08/18 by urology 3. AIDS===> CD4 12/13 143 4. Status post renal failure Plan: Remains stable, urology rec-s noted, continue abx, pending plastic surgery eval Consultation Date/Type/Reason Admit Date/Time Nov 30, 2018 at 20:47 Initial Consult Date 12/02/18 Type of Consult id Requesting Provider: ROBIN TAVAREZ MD Date/Time of Note DATE: 12/21/18 TIME: 10:54 Exam/Review of Systems Exam Vitals Vital Signs Date Temp Pulse Resp B/P (MAP) Pulse Ox O2 O2 Flow FiO2 Time Delivery Rate 12/21/18 97.7 81 16 99/62 (74) 98 07:52 12/19/18 Room Air 14:00 Intake and Output 12/20/18 12/20/18 12/21/18 1515:00 23:00 07:00 IntakeIntake Total 300 ml 250 ml 250 ml OutputOutput Total 600 ml 30 ml 700 ml BalanceBalance -300 ml 220 ml -450 ml Results Result Diagram: 12/21/18 0558 12/21/18 0558 Results 24hrs Laboratory Tests Test 12/21/18 05:58 White Blood Count 3.9 L Red Blood Count 2.97 L Hemoglobin 8.1 L Hematocrit 25.6 L Mean Corpuscular Volume 86.2 Mean Corpuscular Hemoglobin 27.3 L Mean Corpuscular Hemoglobin Concent 31.6 L Red Cell Distribution Width 16.6 H Platelet Count 521 #H Mean Platelet Volume 9.5 Immature Granulocytes % 0.300 Neutrophils % 49.8 Lymphocytes % 25.1 Monocytes % 18.1 H Eosinophils % 5.7 Basophils % 1.0 Nucleated Red Blood Cells % 0.0 Immature Granulocytes # 0.010 Neutrophils # 1.9 Lymphocytes # 1.0 Monocytes # 0.7 Eosinophils # 0.2 Basophils # 0.0 Nucleated Red Blood Cells # 0.0 Sodium Level 134 L Potassium Level 4.3 Chloride Level 101 Carbon Dioxide Level 28 Anion Gap 5 Blood Urea Nitrogen 13 Creatinine 0.58 L Est Glomerular Filtrat Rate mL/min > 60 Glucose Level 94 Calcium Level 8.4 Medications Medication Current Medications Ondansetron HCl (Zofran Inj) 4 mg Q6H PRN IV NAUSEA AND/OR VOMITING Last administered on 12/11/18 17:52; Admin Dose 4 MG; Start 11/30/18 at 21:00 Acetaminophen (Tylenol Liquid) 650 mg Q6H PRN PO PAIN LEVEL 1-3 OR FEVER Last administered on 12/14/18 01:51; Admin Dose 650 MG; Start 11/30/18 at 21:00 Vancomycin HCl (Vanco Iv Per Pharmacy) VANCOMYCIN PER PHARMACY PER PROTOCOL XX ; Start 11/30/18 at 21:00 Morphine Sulfate (morphine) 2 mg Q2H PRN IV MOD TO SEVERE PAIN Last administered on 12/21/18 06:34; Admin Dose 2 MG; Start 12/04/18 at 11:30 Emtricitabine/ Tenofovir (Truvada) 1 tab DAILY PO Last administered on 12/21/18 09:39; Admin Dose 1 TAB; Start 12/06/18 at 09:00 Sodium Hypochlorite (Dakins Diluted ()) 1 applic DAILY TP Last administered on 12/20/18 10:17; Admin Dose 1 APPLIC; Start 12/06/18 at 09:00 Prednisolone Acetate (Pred-Forte 1%) 1 drop DAILY LEFT EYE Last administered on 12/21/18 08:36; Admin Dose 1 DROP; Start 12/05/18 at 19:00 Atropine Sulfate (Atropine 1% Oph) 1 drop BID LEFT EYE Last administered on 12/21/18 08:36; Admin Dose 1 DROP; Start 12/07/18 at 21:00 Guaifenesin (Robitussin Liquid Cup) 100 mg Q4H PRN PO COUGH Last administered on 12/05/18 20:07; Admin Dose 100 MG; Start 12/05/18 at 19:00 Famotidine (Pepcid) 20 mg Q12 PO Last administered on 12/21/18 08:36; Admin Dose 20 MG; Start 12/06/18 at 21:00 Polyethylene Glycol (Miralax) 17 gm DAILY PO Last administered on 12/13/18 08:34; Admin Dose 17 GM; Start 12/07/18 at 16:00 Docusate Sodium (Colace) 200 mg BID PO Last administered on 12/13/18 08:35; Admin Dose 200 MG; Start 12/07/18 at 21:00 Lactulose (Enulose) 20 gm DAILY PRN PO CONSTIPATION Last administered on 12/07/18 17:07; Admin Dose 20 GM; Start 12/07/18 at 16:00 Miscellaneous Information (Pending [facility] Order For Wound Care) 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 PRN XX WOUND CARE; Start 12/08/18 at 02:30 Vancomycin HCl 1.25 gm/Sodium Chloride 250 ml @ 83.333 mls/ hr Q8H IVPB Last administered on 12/21/18 06:11; Admin Dose 83.333 MLS/HR; Start 12/08/18 at 22:00 Multivitamins/ Minerals (Theragran-M) 1 tab DAILY PO Last administered on 12/21/18 08:37; Admin Dose 1 TAB; Start 12/09/18 at 09:00 Ascorbic Acid (Vitamin C) 500 mg BID PO Last administered on 12/21/18 08:36; Admin Dose 500 MG; Start 12/09/18 at 09:00 Zinc Sulfate (Zinc Sulfate) 220 mg DAILY PO Last administered on 12/21/18 08:36; Admin Dose 220 MG; Start 12/09/18 at 09:00 Ibuprofen (Motrin) 400 mg Q6H PRN PO MILD PAIN(1-3) OR TEMP>38C Last administered on 12/12/18 08:39; Admin Dose 400 MG; Start 12/10/18 at 21:00 Trimethoprim/ Sulfamethoxazole (Bactrim (Ds)) 1 tab DAILY PO Last administered on 12/21/18 08:36; Admin Dose 1 TAB; Start 12/12/18 at 12:00 Alteplase, Recombinant (Cathflo (Activase)) 2 mg MAY REPEAT X1 PRN CATHETER IF CATHETER REMAINS OCCULUDED Last administered on 12/12/18 18:04; Admin Dose 2 MG; Start 12/12/18 at 14:30 Acetaminophen/ Hydrocodone Bitart ([place] (5/325)) 1 tab Q4H PRN PO MODERATE PAIN LEVEL 4-6 Last administered on 12/19/18 20:31; Admin Dose 1 TAB; Start 12/12/18 at 15:00 Fluconazole (Diflucan) 100 mg DAILY PO Last administered on 12/21/18 08:36; Admin Dose 100 MG; Start 12/13/18 at 11:30 Morphine Sulfate (morphine) 4 mg DAILY PRN IV SEVERE PAIN LEVEL 7-10 Last administered on 12/20/18 11:59; Admin Dose 4 MG; Start 12/16/18 at 15:30 Ciprofloxacin (Cipro) 500 mg BID@,18 PO Last administered on 12/21/18 06:11; Admin Dose 500 MG; Start 12/20/18 at 18:00 Zidovudine (Retrovir) 300 mg BID PO Last administered on 12/21/18 09:39; Admin Dose 300 MG; Start 12/20/18 at 21:00 CRYSTAL TALAVERA NP Dec 21, 2018 10:55
[2018-12-21 14:00] VITALS: BP 95/60; PULSE 80; RESP 18
--- NOTE | 2018-12-21 14:40 | PN ---
Date/Time of Note Date/Time of Note DATE: 12/21/18 TIME: 14:40 Assessment/Plan VTE Prophylaxis Risk score (from Nsg)>0 risk: 4 SCD applied (from Nsg): Yes Pharmacological prophylaxis: heparin Lines/Catheters IV Catheter Type (from Nrsg): Saline Lock Urinary Cath still in place: No Assessment/Plan Hospital Course Appears well no distress RRR CTAB Soft nt nd Wound vac applied to wound of LLQ Meade in place 42 yo male with HIV/AIDS who presented with fourniers gangrene and necrotizing fasciitis of abdmoen - s/p I and D procedures per She Damon and Mela who are following. No plan for repeat procedures at this time though may eventually need a skin graft by plastic surgery - Wound care, wound vac - Abx per ID HIV/AIDS: - ARVs and ppx per ID Hyponatremia: - Urine studies suggested hypovolemia as etiology. Now improving Anemia: - Adequate iron stores. This is anemia of inflammation Dispo: Will likely need to transfer to [facility] [place] for plastic surgery Result Diagram: 12/21/18 0558 12/21/18 0558 Results 24hrs Laboratory Tests Test 12/21/18 05:58 White Blood Count 3.9 L Red Blood Count 2.97 L Hemoglobin 8.1 L Hematocrit 25.6 L Mean Corpuscular Volume 86.2 Mean Corpuscular Hemoglobin 27.3 L Mean Corpuscular Hemoglobin Concent 31.6 L Red Cell Distribution Width 16.6 H Platelet Count 521 #H Mean Platelet Volume 9.5 Immature Granulocytes % 0.300 Neutrophils % 49.8 Lymphocytes % 25.1 Monocytes % 18.1 H Eosinophils % 5.7 Basophils % 1.0 Nucleated Red Blood Cells % 0.0 Immature Granulocytes # 0.010 Neutrophils # 1.9 Lymphocytes # 1.0 Monocytes # 0.7 Eosinophils # 0.2 Basophils # 0.0 Nucleated Red Blood Cells # 0.0 Sodium Level 134 L Potassium Level 4.3 Chloride Level 101 Carbon Dioxide Level 28 Anion Gap 5 Blood Urea Nitrogen 13 Creatinine 0.58 L Est Glomerular Filtrat Rate mL/min > 60 Glucose Level 94 Calcium Level 8.4 Subjective 24 Hr Interval Summary Free Text/Dictation Doing well, stable Wound care ongoing Awaiting possible transfer Exam/Review of Systems Exam Vitals Vital Signs Date Temp Pulse Resp B/P (MAP) Pulse Ox O2 O2 Flow FiO2 Time Delivery Rate 12/21/18 97.7 81 16 99/62 (74) 98 07:52 12/19/18 Room Air 14:00 Intake and Output 12/20/18 12/20/18 12/21/18 1515:00 23:00 07:00 IntakeIntake Total 300 ml 250 ml 250 ml OutputOutput Total 600 ml 30 ml 700 ml BalanceBalance -300 ml 220 ml -450 ml Results Results 24hrs Laboratory Tests Test 12/21/18 05:58 White Blood Count 3.9 L Red Blood Count 2.97 L Hemoglobin 8.1 L Hematocrit 25.6 L Mean Corpuscular Volume 86.2 Mean Corpuscular Hemoglobin 27.3 L Mean Corpuscular Hemoglobin Concent 31.6 L Red Cell Distribution Width 16.6 H Platelet Count 521 #H Mean Platelet Volume 9.5 Immature Granulocytes % 0.300 Neutrophils % 49.8 Lymphocytes % 25.1 Monocytes % 18.1 H Eosinophils % 5.7 Basophils % 1.0 Nucleated Red Blood Cells % 0.0 Immature Granulocytes # 0.010 Neutrophils # 1.9 Lymphocytes # 1.0 Monocytes # 0.7 Eosinophils # 0.2 Basophils # 0.0 Nucleated Red Blood Cells # 0.0 Sodium Level 134 L Potassium Level 4.3 Chloride Level 101 Carbon Dioxide Level 28 Anion Gap 5 Blood Urea Nitrogen 13 Creatinine 0.58 L Est Glomerular Filtrat Rate mL/min > 60 Glucose Level 94 Calcium Level 8.4 Medications Medication Current Medications Ondansetron HCl (Zofran Inj) 4 mg Q6H PRN IV NAUSEA AND/OR VOMITING Last administered on 12/11/18at 17:52; Admin Dose 4 MG; Start 11/30/18 at 21:00 Acetaminophen (Tylenol Liquid) 650 mg Q6H PRN PO PAIN LEVEL 1-3 OR FEVER Last administered on 12/14/18at 01:51; Admin Dose 650 MG; Start 11/30/18 at 21:00 Vancomycin HCl (Vanco Iv Per Pharmacy) VANCOMYCIN PER PHARMACY PER PROTOCOL XX ; Start 11/30/18 at 21:00 Morphine Sulfate (morphine) 2 mg Q2H PRN IV MOD TO SEVERE PAIN Last administered on 12/21/18at 12:24; Admin Dose 2 MG; Start 12/04/18 at 11:30 Emtricitabine/ Tenofovir (Truvada) 1 tab DAILY PO Last administered on 12/21/18 09:39; Admin Dose 1 TAB; Start 12/06/18 at 09:00 Sodium Hypochlorite (Dakins Diluted ()) 1 applic DAILY TP Last administered on 12/20/18 10:17; Admin Dose 1 APPLIC; Start 12/06/18 at 09:00 Prednisolone Acetate (Pred-Forte 1%) 1 drop DAILY LEFT EYE Last administered on 12/21/18 08:36; Admin Dose 1 DROP; Start 12/05/18 at 19:00 Atropine Sulfate (Atropine 1% Oph) 1 drop BID LEFT EYE Last administered on 12/21/18 08:36; Admin Dose 1 DROP; Start 12/07/18 at 21:00 Guaifenesin (Robitussin Liquid Cup) 100 mg Q4H PRN PO COUGH Last administered on 12/05/18 20:07; Admin Dose 100 MG; Start 12/05/18 at 19:00 Famotidine (Pepcid) 20 mg Q12 PO Last administered on 12/21/18 08:36; Admin Dose 20 MG; Start 12/06/18 at 21:00 Polyethylene Glycol (Miralax) 17 gm DAILY PO Last administered on 12/13/18 08:34; Admin Dose 17 GM; Start 12/07/18 at 16:00 Docusate Sodium (Colace) 200 mg BID PO Last administered on 12/13/18 08:35; Admin Dose 200 MG; Start 12/07/18 at 21:00 Lactulose (Enulose) 20 gm DAILY PRN PO CONSTIPATION Last administered on 12/07/18 17:07; Admin Dose 20 GM; Start 12/07/18 at 16:00 Miscellaneous Information (Pending [facility] Order For Wound Care) 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 PRN XX WOUND CARE; Start 12/08/18 at 02:30 Vancomycin HCl 1.25 gm/Sodium Chloride 250 ml @ 83.333 mls/ hr Q8H IVPB Last administered on 12/21/18 14:17; Admin Dose 83.333 MLS/HR; Start 12/08/18 at 22:00 Multivitamins/ Minerals (Theragran-M) 1 tab DAILY PO Last administered on 12/21/18 08:37; Admin Dose 1 TAB; Start 12/09/18 at 09:00 Ascorbic Acid (Vitamin C) 500 mg BID PO Last administered on 12/21/18 08:36; Admin Dose 500 MG; Start 12/09/18 at 09:00 Zinc Sulfate (Zinc Sulfate) 220 mg DAILY PO Last administered on 12/21/18 08:36; Admin Dose 220 MG; Start 12/09/18 at 09:00 Ibuprofen (Motrin) 400 mg Q6H PRN PO MILD PAIN(1-3) OR TEMP>38C Last administered on 12/12/18 08:39; Admin Dose 400 MG; Start 12/10/18 at 21:00 Trimethoprim/ Sulfamethoxazole (Bactrim (Ds)) 1 tab DAILY PO Last administered on 12/21/18 08:36; Admin Dose 1 TAB; Start 12/12/18 at 12:00 Alteplase, Recombinant (Cathflo (Activase)) 2 mg MAY REPEAT X1 PRN CATHETER IF CATHETER REMAINS OCCULUDED Last administered on 12/12/18 18:04; Admin Dose 2 MG; Start 12/12/18 at 14:30 Acetaminophen/ Hydrocodone Bitart ([place] (5/325)) 1 tab Q4H PRN PO MODERATE PAIN LEVEL 4-6 Last administered on 12/19/18 20:31; Admin Dose 1 TAB; Start 12/12/18 at 15:00 Fluconazole (Diflucan) 100 mg DAILY PO Last administered on 12/21/18 08:36; Admin Dose 100 MG; Start 12/13/18 at 11:30 Morphine Sulfate (morphine) 4 mg DAILY PRN IV SEVERE PAIN LEVEL 7-10 Last administered on 12/20/18 11:59; Admin Dose 4 MG; Start 12/16/18 at 15:30 Ciprofloxacin (Cipro) 500 mg BID@,18 PO Last administered on 12/21/18 06:11; Admin Dose 500 MG; Start 12/20/18 at 18:00 Zidovudine (Retrovir) 300 mg BID PO Last administered on 12/21/18 09:39; Admin Dose 300 MG; Start 12/20/18 at 21:00 JIMI SCHAFER MD Dec 21, 2018 14:40
[2018-12-21] MEDS: HYDROCODONE/APAP (5/325) TAB PO PRN (17:48)
[2018-12-21] MEDS: DAKINS 0.0125%(1/40) 473 ML SOLUTION TP SCH (17:48)
--- NOTE | 2018-12-21 18:22 | CONS ---
Consult Date/Type/Reason Admit Date/Time Nov 30, 2018 at 20:47 Initial Consult Date 12/02/18 Type of Consultation: Urology Reason for Consultation Nida gangrene and necrotizing fasciitis Requesting Provider: ROBIN TAVAREZ MD Date/Time of Note DATE: 12/21/18 TIME: 18:20 Subjective Patient's condition is unchanged. He complains of pain mostly when the dressing is being changed. Objective Vitals Vital Signs Date Temp Pulse Resp B/P (MAP) Pulse Ox O2 O2 Flow FiO2 Time Delivery Rate 12/21/18 98.1 80 18 95/60 (72) 98 14:00 12/19/18 Room Air 14:00 Intake and Output 12/20/18 12/20/18 12/21/18 1414:59 22:59 06:59 IntakeIntake Total 300 ml 250 ml 250 ml OutputOutput Total 600 ml 30 ml 700 ml BalanceBalance -300 ml 220 ml -450 ml Exam I did change the packing for him myself today. The abdominal and the scrotal wounds look very well red and healthy. Results/Medications Result Diagram: 12/21/18 0558 12/21/18 0558 Results 24 hrs Laboratory Tests Test 12/21/18 05:58 White Blood Count 3.9 L Red Blood Count 2.97 L Hemoglobin 8.1 L Hematocrit 25.6 L Mean Corpuscular Volume 86.2 Mean Corpuscular Hemoglobin 27.3 L Mean Corpuscular Hemoglobin Concent 31.6 L Red Cell Distribution Width 16.6 H Platelet Count 521 #H Mean Platelet Volume 9.5 Immature Granulocytes % 0.300 Neutrophils % 49.8 Lymphocytes % 25.1 Monocytes % 18.1 H Eosinophils % 5.7 Basophils % 1.0 Nucleated Red Blood Cells % 0.0 Immature Granulocytes # 0.010 Neutrophils # 1.9 Lymphocytes # 1.0 Monocytes # 0.7 Eosinophils # 0.2 Basophils # 0.0 Nucleated Red Blood Cells # 0.0 Sodium Level 134 L Potassium Level 4.3 Chloride Level 101 Carbon Dioxide Level 28 Anion Gap 5 Blood Urea Nitrogen 13 Creatinine 0.58 L Est Glomerular Filtrat Rate mL/min > 60 Glucose Level 94 Calcium Level 8.4 Home Meds Reported Medications Atropine Sulfate/0.9 %Sod Chlr (Atropine 0.01%-Ns Eye Drops) 10 Ml Drops, 1 ML OP BID, #1 12/05/18 Prednisolone Acetate* (Pred Forte*) 5 Ml Susp, 1 DROP LEFT EYE Q1HOUR, EA 12/04/18 Medications Current Medications Ondansetron HCl (Zofran Inj) 4 mg Q6H PRN IV NAUSEA AND/OR VOMITING Last administered on 12/11/18 17:52; Admin Dose 4 MG; Start 11/30/18 at 21:00 Acetaminophen (Tylenol Liquid) 650 mg Q6H PRN PO PAIN LEVEL 1-3 OR FEVER Last administered on 12/14/18 01:51; Admin Dose 650 MG; Start 11/30/18 at 21:00 Vancomycin HCl (Vanco Iv Per Pharmacy) VANCOMYCIN PER PHARMACY PER PROTOCOL XX ; Start 11/30/18 at 21:00 Morphine Sulfate (morphine) 2 mg Q2H PRN IV MOD TO SEVERE PAIN Last administered on 12/21/18 16:06; Admin Dose 2 MG; Start 12/04/18 at 11:30 Emtricitabine/ Tenofovir (Truvada) 1 tab DAILY PO Last administered on 12/21/18 09:39; Admin Dose 1 TAB; Start 12/06/18 at 09:00 Sodium Hypochlorite (Dakins Diluted ()) 1 applic DAILY TP Last administered on 12/21/18 17:48; Admin Dose 1 APPLIC; Start 12/06/18 at 09:00 Prednisolone Acetate (Pred-Forte 1%) 1 drop DAILY LEFT EYE Last administered on 12/21/18 08:36; Admin Dose 1 DROP; Start 12/05/18 at 19:00 Atropine Sulfate (Atropine 1% Oph) 1 drop BID LEFT EYE Last administered on 12/21/18 08:36; Admin Dose 1 DROP; Start 12/07/18 at 21:00 Guaifenesin (Robitussin Liquid Cup) 100 mg Q4H PRN PO COUGH Last administered on 12/05/18 20:07; Admin Dose 100 MG; Start 12/05/18 at 19:00 Famotidine (Pepcid) 20 mg Q12 PO Last administered on 12/21/18 08:36; Admin D ose 20 MG; Start 12/06/18 at 21:00 Polyethylene Glycol (Miralax) 17 gm DAILY PO Last administered on 12/13/18 08:34; Admin Dose 17 GM; Start 12/07/18 at 16:00 Docusate Sodium (Colace) 200 mg BID PO Last administered on 12/13/18 08:35; Admin Dose 200 MG; Start 12/07/18 at 21:00 Lactulose (Enulose) 20 gm DAILY PRN PO CONSTIPATION Last administered on 12/07/18 17:07; Admin Dose 20 GM; Start 12/07/18 at 16:00 Miscellaneous Information (Pending [facility] Order For Wound Care) 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 PRN XX WOUND CARE; Start 12/08/18 at 02:30 Vancomycin HCl 1.25 gm/Sodium Chloride 250 ml @ 83.333 mls/ hr Q8H IVPB Last administered on 12/21/18 14:17; Admin Dose 83.333 MLS/HR; Start 12/08/18 at 22:00 Multivitamins/ Minerals (Theragran-M) 1 tab DAILY PO Last administered on 12/21/18 08:37; Admin Dose 1 TAB; Start 12/09/18 at 09:00 Ascorbic Acid (Vitamin C) 500 mg BID PO Last administered on 12/21/18 08:36; Admin Dose 500 MG; Start 12/09/18 at 09:00 Zinc Sulfate (Zinc Sulfate) 220 mg DAILY PO Last administered on 12/21/18 08:36; Admin Dose 220 MG; Start 12/09/18 at 09:00 Ibuprofen (Motrin) 400 mg Q6H PRN PO MILD PAIN(1-3) OR TEMP>38C Last administered on 12/12/18 08:39; Admin Dose 400 MG; Start 12/10/18 at 21:00 Trimethoprim/ Sulfamethoxazole (Bactrim (Ds)) 1 tab DAILY PO Last administered on 12/21/18 08:36; Admin Dose 1 TAB; Start 12/12/18 at 12:00 Alteplase, Recombinant (Cathflo (Activase)) 2 mg MAY REPEAT X1 PRN CATHETER IF CATHETER REMAINS OCCULUDED Last administered on 12/12/18at 18:04; Admin Dose 2 MG; Start 12/12/18 at 14:30 Acetaminophen/ Hydrocodone Bitart ([place] (5/325)) 1 tab Q4H PRN PO MODERATE PAIN LEVEL 4-6 Last administered on 12/21/18 17:48; Admin Dose 1 TAB; Start 12/12/18 at 15:00 Fluconazole (Diflucan) 100 mg DAILY PO Last administered on 12/21/18 08:36; Admin Dose 100 MG; Start 12/13/18 at 11:30 Morphine Sulfate (morphine) 4 mg DAILY PRN IV SEVERE PAIN LEVEL 7-10 Last administered on 12/20/18 11:59; Admin Dose 4 MG; Start 12/16/18 at 15:30 Ciprofloxacin (Cipro) 500 mg BID@06,18 PO Last administered on 12/21/18 17:34; Admin Dose 500 MG; Start 12/20/18 at 18:00 Zidovudine (Retrovir) 300 mg BID PO Last administered on 12/21/18 09:39; Admin Dose 300 MG; Start 12/20/18 at 21:00 Assessment/Plan Hospital Course (Demo Recall) 42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 He underwent incision and drainage of the abdominal wall all the way up to the lower ribs on the left side and also of the left thigh and right inguinal area and debridement of the scrotum and perineal area. The wounds are getting better. He underwent debridement and incision and drainage of a right buttock abscess. The culture from the buttock grew MRSA. He is doing better. The abdominal wound as well as a scrotal wound are looking healthy and red. I think he is ready to have these closed but he will need skin graft and the plastic surgeon to do that for him. GWEN BUCK MD Dec 21, 2018 18:22
[2018-12-21 19:45] VITALS: BP 98/59; PULSE 89; RESP 16
[2018-12-21] MEDS: ZIDOVUDINE 300 MG TAB PO SCH (20:50)
[2018-12-22] MEDS: morphine 2 MG INJ IV PRN ×7 (00:22→21:33)
[2018-12-22 02:00] VITALS: BP 98/62; PULSE 86; RESP 17
[2018-12-22] MEDS: VANCOMYCIN HCL 1.25 GM in SOD CHLORIDE 0.9% 250 ML IVPB SCH (05:32)
[2018-12-22] MEDS: CIPROFLOXACIN 500 MG TAB PO SCH ×2 (05:32→18:15)
[2018-12-22 07:15] VITALS: BP 98/63; PULSE 84; RESP 18
--- NOTE | 2018-12-22 08:23 | CONS ---
Consult Date/Type/Reason Admit Date/Time Nov 30, 2018 at 20:47 Initial Consult Date 12/02/18 Type of Consultation: Urology Reason for Consultation Nida gangrene and necrotizing fasciitis Requesting Provider: ROBIN TAVAREZ MD Date/Time of Note DATE: 12/22/18 TIME: 08:22 Subjective No new events overnight Objective Vitals Vital Signs Date Temp Pulse Resp B/P (MAP) Pulse Ox O2 O2 Flow FiO2 Time Delivery Rate 12/22/18 97.8 84 18 98/63 (75) 98 07:15 12/22/18 Room Air 02:00 Intake and Output 12/21/18 12/21/18 12/22/18 1515:00 23:00 07:00 IntakeIntake Total 750 ml 1250 ml 250 ml OutputOutput Total 830 ml 20 ml BalanceBalance 750 ml 420 ml 230 ml Exam Packings are intact Results/Medications Result Diagram: 12/21/18 0558 12/21/18 0558 Home Meds Reported Medications Atropine Sulfate/0.9 %Sod Chlr (Atropine 0.01%-Ns Eye Drops) 10 Ml Drops, 1 ML OP BID, #1 12/05/18 Prednisolone Acetate* (Pred Forte*) 5 Ml Susp, 1 DROP LEFT EYE Q1HOUR, EA 12/04/18 Medications Current Medications Ondansetron HCl (Zofran Inj) 4 mg Q6H PRN IV NAUSEA AND/OR VOMITING Last administered on 12/11/18at 17:52; Admin Dose 4 MG; Start 11/30/18 at 21:00 Acetaminophen (Tylenol Liquid) 650 mg Q6H PRN PO PAIN LEVEL 1-3 OR FEVER Last administered on 12/14/18at 01:51; Admin Dose 650 MG; Start 11/30/18 at 21:00 Vancomycin HCl (Vanco Iv Per Pharmacy) VANCOMYCIN PER PHARMACY PER PROTOCOL XX ; Start 11/30/18 at 21:00 Morphine Sulfate (morphine) 2 mg Q2H PRN IV MOD TO SEVERE PAIN Last administered on 12/22/18at 05:38; Admin Dose 2 MG; Start 12/04/18 at 11:30 Emtricitabine/ Tenofovir (Truvada) 1 tab DAILY PO Last administered on 12/21/18at 09:39; Admin Dose 1 TAB; Start 12/06/18 at 09:00 Sodium Hypochlorite (Dakins Diluted (1/40)) 1 applic DAILY TP Last administered on 12/21/18 17:48; Admin Dose 1 APPLIC; Start 12/06/18 at 09:00 Prednisolone Acetate (Pred-Forte 1%) 1 drop DAILY LEFT EYE Last administered on 12/21/18 08:36; Admin Dose 1 DROP; Start 12/05/18 at 19:00 Atropine Sulfate (Atropine 1% Oph) 1 drop BID LEFT EYE Last administered on 12/21/18 20:50; Admin Dose 1 DROP; Start 12/07/18 at 21:00 Guaifenesin (Robitussin Liquid Cup) 100 mg Q4H PRN PO COUGH Last administered on 12/05/18 20:07; Admin Dose 100 MG; Start 12/05/18 at 19:00 Famotidine (Pepcid) 20 mg Q12 PO Last administered on 12/21/18 20:51; Admin Dose 20 MG; Start 12/06/18 at 21:00 Polyethylene Glycol (Miralax) 17 gm DAILY PO Last administered on 12/13/18 08:34; Admin Dose 17 GM; Start 12/07/18 at 16:00 Docusate Sodium (Colace) 200 mg BID PO Last administered on 12/13/18 08:35; Admin Dose 200 MG; Start 12/07/18 at 21:00 Lactulose (Enulose) 20 gm DAILY PRN PO CONSTIPATION Last administered on 12/07/18 17:07; Admin Dose 20 GM; Start 12/07/18 at 16:00 Miscellaneous Information (Pending [facility] Order For Wound Care) 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 PRN XX WOUND CARE; Start 12/08/18 at 02:30 Vancomycin HCl 1.25 gm/Sodium Chloride 250 ml @ 83.333 mls/ hr Q8H IVPB Last administered on 12/22/18 05:32; Admin Dose 83.333 MLS/HR; Start 12/08/18 at 22:00 Multivitamins/ Minerals (Theragran-M) 1 tab DAILY PO Last administered on 08:37; Admin Dose 1 TAB; Start 12/09/18 at 09:00 Ascorbic Acid (Vitamin C) 500 mg BID PO Last administered on 12/21/18 20:51; Admin Dose 500 MG; Start 12/09/18 at 09:00 Zinc Sulfate (Zinc Sulfate) 220 mg DAILY PO Last administered on 12/21/18 08:36; Admin Dose 220 MG; Start 12/09/18 at 09:00 Ibuprofen (Motrin) 400 mg Q6H PRN PO MILD PAIN(1-3) OR TEMP>38C Last administered on 12/12/18 08:39; Admin Dose 400 MG; Start 12/10/18 at 21:00 Trimethoprim/ Sulfamethoxazole (Bactrim (Ds)) 1 tab DAILY PO Last administered on 12/21/18 08:36; Admin Dose 1 TAB; Start 12/12/18 at 12:00 Alteplase, Recombinant (Cathflo (Activase)) 2 mg MAY REPEAT X1 PRN CATHETER IF CATHETER REMAINS OCCULUDED Last administered on 12/12/18 18:04; Admin Dose 2 MG; Start 12/12/18 at 14:30 Acetaminophen/ Hydrocodone Bitart ([place] (5/325)) 1 tab Q4H PRN PO MODERATE PAIN LEVEL 4-6 Last administered on 12/21/18 17:48; Admin Dose 1 TAB; Start 12/12/18 at 15:00 Fluconazole (Diflucan) 100 mg DAILY PO Last administered on 12/21/18 08:36; Admin Dose 100 MG; Start 12/13/18 at 11:30 Morphine Sulfate (morphine) 4 mg DAILY PRN IV SEVERE PAIN LEVEL 7-10 Last administered on 12/20/18 11:59; Admin Dose 4 MG; Start 12/16/18 at 15:30 Ciprofloxacin (Cipro) 500 mg BID@,18 PO Last administered on 12/22/18 05:32; Admin Dose 500 MG; Start 12/20/18 at 18:00 Zidovudine (Retrovir) 300 mg BID PO Last administered on 12/21/18 20:50; Admin Dose 300 MG; Start 12/21/18 at 21:00 Assessment/Plan Hospital Course (Demo Recall) 42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 He underwent incision and drainage of the abdominal wall all the way up to the lower ribs on the left side and also of the left thigh and right inguinal area and debridement of the scrotum and perineal area. The wounds are getting better. He underwent debridement and incision and drainage of a right buttock abscess. The culture from the buttock grew MRSA. He is doing better. The abdominal wound as well as a scrotal wound are looking healthy and red. I think he is ready to have these closed but he will need skin graft and the plastic surgeon to do that for him. No change in his condition. Still awaiting arrangements for plastic surgery. GWEN BUCK MD Dec 22, 2018 08:23
[2018-12-22] MEDS: DOCUSATE SODIUM 100 MG CAP PO SCH ×2 (09:00→21:00)
[2018-12-22] MEDS: POLYETHYLENE GLYCOL 17 GM PACKET PO SCH (09:00)
[2018-12-22] MEDS: ASCORBIC ACID 500 MG TAB PO SCH ×2 (09:10→20:57)
[2018-12-22] MEDS: FAMOTIDINE 20 MG TAB PO SCH ×2 (09:11→20:57)
[2018-12-22] MEDS: MULTIVITAMINS/MINERALS TAB PO SCH (09:11)
[2018-12-22] MEDS: ATROPINE 1% 5 ML OPH LEFT EYE SCH ×2 (09:11→20:58)
[2018-12-22] MEDS: ZIDOVUDINE 300 MG TAB PO SCH ×2 (09:11→20:57)
[2018-12-22] MEDS: ZINC SULFATE 220 MG CAP PO SCH (09:11)
[2018-12-22] MEDS: FLUCONAZOLE 100 MG TAB PO SCH (09:11)
[2018-12-22] MEDS: PREDNISOLONE ACET 1% 5 ML OPH LEFT EYE SCH (09:11)
[2018-12-22] MEDS: EMTRICITABINE/TENOFOVIR TAB PO SCH (09:11)
[2018-12-22] MEDS: TRIMETHOPRIM/SULFAMETHOX (DS) TAB PO SCH (09:11)
--- NOTE | 2018-12-22 10:44 | CONS ---
Assessment/Plan Assessment/Plan Hospital Course (Demo Recall) All noted, awake, looks comfortable, no fevers Indwelling: PIV Microbiology: Wound culture grew MRSA, repeat cx + Kleb, E coli, MRSA Antimicrobials: Vancomycin, Cipro, Truvada, Retrovir, Diflucan, Bactrim Physical examination: Well-developed well-nourished middle-aged man who is alert in no distress. Head atraumatic normocephalic sclera nonicteric neck is supple chest rise symmetrical breath sounds clear heart: S1-S2 abdomen soft bowel sounds present extremities without cyanosis. Skin: Patient has dressing over his left side of the abdomen and bilateral wound vacs to hips Assessment: 1. S/p ongoing fevers==> resolved after PICC dc'd 2. Fornier's gangrene and necrotizing fasciitis, status post multiple recurrent debridement ==> latest one on 12/08/18 by urology 3. AIDS===> CD4 12/13 143 4. Status post renal failure Plan: Remains stable, urology rec-s noted, change Vanco to oral Doxycycline, pending plastic surgery eval for poss skin graft Consultation Date/Type/Reason Admit Date/Time Nov 30, 2018 at 20:47 Initial Consult Date 12/02/18 Type of Consult id Requesting Provider: ROBIN TAVAREZ MD Date/Time of Note DATE: 12/22/18 TIME: 10:44 Exam/Review of Systems Exam Vitals Vital Signs Date Temp Pulse Resp B/P (MAP) Pulse Ox O2 O2 Flow FiO2 Time Delivery Rate 12/22/18 97.8 84 18 98/63 (75) 98 07:15 12/22/18 Room Air 02:00 Intake and Output 12/21/18 12/21/18 12/22/18 1414:59 22:59 06:59 IntakeIntake Total 750 ml 1250 ml 250 ml OutputOutput Total 830 ml BalanceBalance 750 ml 420 ml 250 ml Results Result Diagram: 12/21/18 0558 12/21/18 0558 Medications Medication Current Medications Ondansetron HCl (Zofran Inj) 4 mg Q6H PRN IV NAUSEA AND/OR VOMITING Last administered on 12/11/18at 17:52; Admin Dose 4 MG; Start 11/30/18 at 21:00 Acetaminophen (Tylenol Liquid) 650 mg Q6H PRN PO PAIN LEVEL 1-3 OR FEVER Last administered on 12/14/18 01:51; Admin Dose 650 MG; Start 11/30/18 at 21:00 Vancomycin HCl (Vanco Iv Per Pharmacy) VANCOMYCIN PER PHARMACY PER PROTOCOL XX ; Start 11/30/18 at 21:00 Morphine Sulfate (morphine) 2 mg Q2H PRN IV MOD TO SEVERE PAIN Last administered on 12/22/18 05:38; Admin Dose 2 MG; Start 12/04/18 at 11:30 Emtricitabine/ Tenofovir (Truvada) 1 tab DAILY PO Last administered on 12/22/18 09:11; Admin Dose 1 TAB; Start 12/06/18 at 09:00 Sodium Hypochlorite (Dakins Diluted ()) 1 applic DAILY TP Last administered on 12/21/18 17:48; Admin Dose 1 APPLIC; Start 12/06/18 at 09:00 Prednisolone Acetate (Pred-Forte 1%) 1 drop DAILY LEFT EYE Last administered on 12/22/18 09:11; Admin Dose 1 DROP; Start 12/05/18 at 19:00 Atropine Sulfate (Atropine 1% Oph) 1 drop BID LEFT EYE Last administered on 12/22/18 09:11; Admin Dose 1 DROP; Start 12/07/18 at 21:00 Guaifenesin (Robitussin Liquid Cup) 100 mg Q4H PRN PO COUGH Last administered on 12/05/18 20:07; Admin Dose 100 MG; Start 12/05/18 at 19:00 Famotidine (Pepcid) 20 mg Q12 PO Last administered on 12/22/18 09:11; Admin Dose 20 MG; Start 12/06/18 at 21:00 Polyethylene Glycol (Miralax) 17 gm DAILY PO Last administered on 12/13/18 08:34; Admin Dose 17 GM; Start 12/07/18 at 16:00 Docusate Sodium (Colace) 200 mg BID PO Last administered on 12/13/18 08:35; Admin Dose 200 MG; Start 12/07/18 at 21:00 Lactulose (Enulose) 20 gm DAILY PRN PO CONSTIPATION Last administered on 12/07/18 17:07; Admin Dose 20 GM; Start 12/07/18 at 16:00 Miscellaneous Information (Pending [facility] Order For Wound Care) 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 PRN XX WOUND CARE; Start 12/08/18 at 02:30 Vancomycin HCl 1.25 gm/Sodium Chloride 250 ml @ 83.333 mls/ hr Q8H IVPB Last administered on 12/22/18 05:32; Admin Dose 83.333 MLS/HR; Start 12/08/18 at 22:00 Multivitamins/ Minerals (Theragran-M) 1 tab DAILY PO Last administered on 12/22/18 09:11; Admin Dose 1 TAB; Start 12/09/18 at 09:00 Ascorbic Acid (Vitamin C) 500 mg BID PO Last administered on 12/22/18 09:10; Admin Dose 500 MG; Start 12/09/18 at 09:00 Zinc Sulfate (Zinc Sulfate) 220 mg DAILY PO Last administered on 12/22/18 09:11; Admin Dose 220 MG; Start 12/09/18 at 09:00 Ibuprofen (Motrin) 400 mg Q6H PRN PO MILD PAIN(1-3) OR TEMP>38C Last administered on 12/12/18 08:39; Admin Dose 400 MG; Start 12/10/18 at 21:00 Trimethoprim/ Sulfamethoxazole (Bactrim (Ds)) 1 tab DAILY PO Last administered on 12/22/18 09:11; Admin Dose 1 TAB; Start 12/12/18 at 12:00 Alteplase, Recombinant (Cathflo (Activase)) 2 mg MAY REPEAT X1 PRN CATHETER IF CATHETER REMAINS OCCULUDED Last administered on 12/12/18 18:04; Admin Dose 2 MG; Start 12/12/18 at 14:30 Acetaminophen/ Hydrocodone Bitart ([place] (5/325)) 1 tab Q4H PRN PO MODERATE PAIN LEVEL 4-6 Last administered on 12/21/18 17:48; Admin Dose 1 TAB; Start 12/12/18 at 15:00 Fluconazole (Diflucan) 100 mg DAILY PO Last administered on 12/22/18 09:11; Admin Dose 100 MG; Start 12/13/18 at 11:30 Morphine Sulfate (morphine) 4 mg DAILY PRN IV SEVERE PAIN LEVEL 7-10 Last administered on 12/20/18 11:59; Admin Dose 4 MG; Start 12/16/18 at 15:30 Ciprofloxacin (Cipro) 500 mg BID@06,18 PO Last administered on 12/22/18at 05:32; Admin Dose 500 MG; Start 12/20/18 at 18:00 Zidovudine (Retrovir) 300 mg BID PO Last administered on 12/22/18at 09:11; Admin Dose 300 MG; Start 12/21/18 at 21:00 CRYSTAL TALAVERA NP Dec 22, 2018 10:44
[2018-12-22] MEDS: DOXYCYCLINE 100 MG TAB PO SCH ×2 (12:42→19:32)
--- NOTE | 2018-12-22 13:16 | PN ---
Date/Time of Note Date/Time of Note DATE: 12/22/18 TIME: 13:15 Assessment/Plan VTE Prophylaxis Risk score (from Nsg)>0 risk: 4 SCD applied (from Nsg): Yes Pharmacological prophylaxis: heparin Lines/Catheters IV Catheter Type (from Nrsg): Saline Lock Urinary Cath still in place: No Assessment/Plan Hospital Course Appears well no distress RRR CTAB Soft nt nd Wound vac applied to wound of LLQ Me[place] in place 42 yo male with HIV/AIDS who presented with fourniers gangrene and necrotizing fasciitis of abdmoen - s/p I and D procedures per She Damon and Mela who are following. No plan for repeat procedures at this time though may eventually need a skin graft by plastic surgery - Wound care, wound vac - Abx per ID HIV/AIDS: - ARVs and ppx per ID Hyponatremia: - Urine studies suggested hypovolemia as etiology. Now improving Anemia: - Adequate iron stores. This is anemia of inflammation Dispo: Will likely need to transfer to [facility] for plastic surgery Result Diagram: 12/21/18 0558 12/21/18 0558 Subjective 24 Hr Interval Summary Free Text/Dictation Stable, awaiting possible transfer Exam/Review of Systems Exam Vitals Vital Signs Date Temp Pulse Resp B/P (MAP) Pulse Ox O2 O2 Flow FiO2 Time Delivery Rate 12/22/18 97.8 84 18 98/63 (75) 98 07:15 12/22/18 Room Air 02:00 Intake and Output 12/21/18 12/21/18 12/22/18 1414:59 22:59 06:59 IntakeIntake Total 750 ml 1250 ml 250 ml OutputOutput Total 830 ml BalanceBalance 750 ml 420 ml 250 ml Medications Medication Current Medications Ondansetron HCl (Zofran Inj) 4 mg Q6H PRN IV NAUSEA AND/OR VOMITING Last administered on 12/11/18at 17:52; Admin Dose 4 MG; Start 11/30/18 at 21:00 Acetaminophen (Tylenol Liquid) 650 mg Q6H PRN PO PAIN LEVEL 1-3 OR FEVER Last administered on 12/14/18at 01:51; Admin Dose 650 MG; Start 11/30/18 at 21:00 Morphine Sulfate (morphine) 2 mg Q2H PRN IV MOD TO SEVERE PAIN Last a dministered on 12/22/18 11:11; Admin Dose 2 MG; Start 12/04/18 at 11:30 Emtricitabine/ Tenofovir (Truvada) 1 tab DAILY PO Last administered on 12/22/18 09:11; Admin Dose 1 TAB; Start 12/06/18 at 09:00 Sodium Hypochlorite (Dakins Diluted (140)) 1 applic DAILY TP Last administered on 12/21/18 17:48; Admin Dose 1 APPLIC; Start 12/06/18 at 09:00 Prednisolone Acetate (Pred-Forte 1%) 1 drop DAILY LEFT EYE Last administered on 12/22/18 09:11; Admin Dose 1 DROP; Start 12/05/18 at 19:00 Atropine Sulfate (Atropine 1% Oph) 1 drop BID LEFT EYE Last administered on 12/22/18 09:11; Admin Dose 1 DROP; Start 12/07/18 at 21:00 Guaifenesin (Robitussin Liquid Cup) 100 mg Q4H PRN PO COUGH Last administered on 12/05/18 20:07; Admin Dose 100 MG; Start 12/05/18 at 19:00 Famotidine (Pepcid) 20 mg Q12 PO Last administered on 12/22/18 09:11; Admin Dose 20 MG; Start 12/06/18 at 21:00 Polyethylene Glycol (Miralax) 17 gm DAILY PO Last administered on 12/13/18 08:34; Admin Dose 17 GM; Start 12/07/18 at 16:00 Docusate Sodium (Colace) 200 mg BID PO Last administered on 12/13/18 08:35; Admin Dose 200 MG; Start 12/07/18 at 21:00 Lactulose (Enulose) 20 gm DAILY PRN PO CONSTIPATION Last administered on 17:07; Admin Dose 20 GM; Start 12/07/18 at 16:00 Miscellaneous Information [facility] 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 PRN XX WOUND CARE; Start 12/08/18 at 02:30 Multivitamins/ Minerals (Theragran-M) 1 tab DAILY PO Last administered on 12/22/18 09:11; Admin Dose 1 TAB; Start 12/09/18 at 09:00 Ascorbic Acid (Vitamin C) 500 mg BID PO Last administered on 12/22/18 09:10; Admin Dose 500 MG; Start 12/09/18 at 09:00 Zinc Sulfate (Zinc Sulfate) 220 mg DAILY PO Last administered on 12/22/18 09:11; Admin Dose 220 MG; Start 12/09/18 at 09:00 Ibuprofen (Motrin) 400 mg Q6H PRN PO MILD PAIN(1-3) OR TEMP>38C Last administered on 12/12/18 08:39; Admin Dose 400 MG; Start 12/10/18 at 21:00 Trimethoprim/ Sulfamethoxazole (Bactrim (Ds)) 1 tab DAILY PO Last administered on 12/22/18 09:11; Admin Dose 1 TAB; Start 12/12/18 at 12:00 Alteplase, Recombinant (Cathflo (Activase)) 2 mg MAY REPEAT X1 PRN CATHETER IF CATHETER REMAINS OCCULUDED Last administered on 12/12/18 18:04; Admin Dose 2 MG; Start 12/12/18 at 14:30 Acetaminophen/ Hydrocodone Bitart ([place] (5/325)) 1 tab Q4H PRN PO MODERATE PAIN LEVEL 4-6 Last administered on 12/21/18 17:48; Admin Dose 1 TAB; Start at 15:00 Fluconazole (Diflucan) 100 mg DAILY PO Last administered on 12/22/18 09:11; Admin Dose 100 MG; Start 12/13/18 at 11:30 Morphine Sulfate (morphine) 4 mg DAILY PRN IV SEVERE PAIN LEVEL 7-10 Last administered on 12/20/18 11:59; Admin Dose 4 MG; Start 12/16/18 at 15:30 Ciprofloxacin (Cipro) 500 mg BID@06,18 PO Last administered on 12/22/18 05:32; Admin Dose 500 MG; Start 12/20/18 at 18:00 Zidovudine (Retrovir) 300 mg BID PO Last administered on 12/22/18 09:11; Admin Dose 300 MG; Start 12/21/18 at 21:00 Doxycycline Hyclate (Vibramycin) 100 mg 0800,2000 PO Last administered on 12/22/18 12:42; Admin Dose 100 MG; Start 12/22/18 at 12:00 JIMI SCHAFER MD Dec 22, 2018 13:16
[2018-12-22 14:00] VITALS: BP 98/55; PULSE 80; RESP 18
[2018-12-22] MEDS: DAKINS 0.0125%(1/40) 473 ML SOLUTION TP SCH (16:34)
[2018-12-22 19:36] VITALS: BP 95/53; PULSE 94; RESP 18
[2018-12-22] MEDS ORDERED: CALCIUM CARBONATE 500 MG CHEW TAB PO ONE (20:00)
[2018-12-23] MEDS: morphine 2 MG INJ IV PRN (00:45)
[2018-12-23 01:46] VITALS: BP 92/54; PULSE 95; RESP 19
[2018-12-23] MEDS: HYDROCODONE/APAP (5/325) TAB PO PRN ×5 (03:06→20:06)
[2018-12-23] MEDS: CIPROFLOXACIN 500 MG TAB PO SCH ×2 (06:42→17:41)
[2018-12-23 08:00] VITALS: BP 92/56; PULSE 76; RESP 20
[2018-12-23] MEDS: DOCUSATE SODIUM 100 MG CAP PO SCH ×2 (09:00→20:46)
[2018-12-23] MEDS: POLYETHYLENE GLYCOL 17 GM PACKET PO SCH (09:00)
[2018-12-23] MEDS: FLUCONAZOLE 100 MG TAB PO SCH (09:54)
[2018-12-23] MEDS: FAMOTIDINE 20 MG TAB PO SCH ×2 (09:54→20:46)
[2018-12-23] MEDS: ZIDOVUDINE 300 MG TAB PO SCH ×2 (09:54→20:46)
[2018-12-23] MEDS: EMTRICITABINE/TENOFOVIR TAB PO SCH (09:54)
[2018-12-23] MEDS: ATROPINE 1% 5 ML OPH LEFT EYE SCH ×2 (09:54→20:47)
[2018-12-23] MEDS: TRIMETHOPRIM/SULFAMETHOX (DS) TAB PO SCH (09:54)
[2018-12-23] MEDS: MULTIVITAMINS/MINERALS TAB PO SCH (09:54)
[2018-12-23] MEDS: ZINC SULFATE 220 MG CAP PO SCH (09:54)
[2018-12-23] MEDS: PREDNISOLONE ACET 1% 5 ML OPH LEFT EYE SCH (09:55)
[2018-12-23] MEDS: ASCORBIC ACID 500 MG TAB PO SCH ×2 (09:58→20:46)
[2018-12-23] MEDS: DOXYCYCLINE 100 MG TAB PO SCH ×2 (09:58→20:05)
--- NOTE | 2018-12-23 11:28 | CONS ---
Assessment/Plan Assessment/Plan Hospital Course (Demo Recall) looks comfortable, no fevers Indwelling: PIV Microbiology: Wound culture grew MRSA, repeat cx + Kleb, E coli, MRSA Antimicrobials: Doxycycline, Cipro, Truvada, Retrovir, Diflucan, Bactrim Physical examination: Well-developed well-nourished middle-aged man who is alert in no distress. Head atraumatic normocephalic sclera nonicteric neck is supple chest rise symmetrical breath sounds clear heart: S1-S2 abdomen soft bowel sounds present extremities without cyanosis. Skin: Patient has dressing over his left side of the abdomen and bilateral wound vacs to hips Assessment: 1. S/p ongoing fevers==> resolved after PICC dc'd 2. Fornier's gangrene and necrotizing fasciitis, status post multiple recurrent debridement ==> latest one on 12/08/18 by urology 3. AIDS===> CD4 12/13 143 4. Status post renal failure Plan: Remains stable, continue present care, pending plastic surgery eval for poss skin graft Consultation Date/Type/Reason Admit Date/Time Nov 30, 2018 at 20:47 Initial Consult Date 12/02/18 Type of Consult id Requesting Provider: ROBIN TAVAREZ MD Date/Time of Note DATE: 12/23/18 TIME: 11:28 Exam/Review of Systems Exam Vitals Vital Signs Date Temp Pulse Resp B/P (MAP) Pulse Ox O2 O2 Flow FiO2 Time Delivery Rate 12/23/18 97.8 76 20 92/56 (68) 96 08:00 12/23/18 Room Air 01:46 Intake and Output 12/22/18 12/22/18 12/23/18 1515:00 23:00 07:00 IntakeIntake Total 910 ml 540 ml OutputOutput Total 450 ml 30 ml 0 ml BalanceBalance 460 ml 510 ml 0 ml Results Result Diagram: 12/21/18 0558 12/21/18 0558 Medications Medication Current Medications Ondansetron HCl (Zofran Inj) 4 mg Q6H PRN IV NAUSEA AND/OR VOMITING Last administered on 12/11/18at 17:52; Admin Dose 4 MG; Start 11/30/18 at 21:00 Acetaminophen (Tylenol Liquid) 650 mg Q6H PRN PO PAIN LEVEL 1-3 OR FEVER Last administered on 12/14/18 01:51; Admin Dose 650 MG; Start 11/30/18 at 21:00 Morphine Sulfate (morphine) 2 mg Q2H PRN IV MOD TO SEVERE PAIN Last administered on 12/23/18 00:45; Admin Dose 2 MG; Start 12/04/18 at 11:30 Emtricitabine/ Tenofovir (Truvada) 1 tab DAILY PO Last administered on 11/29 09:54; Admin Dose 1 TAB; Start 12/06/18 at 09:00 Sodium Hypochlorite (Dakins Diluted ()) 1 applic DAILY TP Last administered on 12/22/18 16:34; Admin Dose 1 APPLIC; Start 12/06/18 at 09:00 Prednisolone Acetate (Pred-Forte 1%) 1 drop DAILY LEFT EYE Last administered on 12/23/18 09:55; Admin Dose 1 DROP; Start 12/05/18 at 19:00 Atropine Sulfate (Atropine 1% Oph) 1 drop BID LEFT EYE Last administered on 12/23/18 09:54; Admin Dose 1 DROP; Start 12/07/18 at 21:00 Guaifenesin (Robitussin Liquid Cup) 100 mg Q4H PRN PO COUGH Last administered on 12/05/18 20:07; Admin Dose 100 MG; Start 12/05/18 at 19:00 Famotidine (Pepcid) 20 mg Q12 PO Last administered on 12/23/18 09:54; Admin Dose 20 MG; Start 12/06/18 at 21:00 Polyethylene Glycol (Miralax) 17 gm DAILY PO Last administered on 12/13/18 08:34; Admin Dose 17 GM; Start 12/07/18 at 16:00 Docusate Sodium (Colace) 200 mg BID PO Last administered on 12/13/18 08:35; Admin Dose 200 MG; Start 12/07/18 at 21:00 Lactulose (Enulose) 20 gm DAILY PRN PO CONSTIPATION Last administered on 12/07/18 17:07; Admin Dose 20 GM; Start 12/07/18 at 16:00 Miscellaneous Information (Pending [facility] Order For Wound Care) 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 PRN XX WOUND CARE; Start 12/08/18 at 02:30 Multivitamins/ Minerals (Theragran-M) 1 tab DAILY PO Last administered on 12/23/18 09:54; Admin Dose 1 TAB; Start 12/09/18 at 09:00 Ascorbic Acid (Vitamin C) 500 mg BID PO Last administered on 12/23/18 09:58; Admin Dose 500 MG; Start 12/09/18 at 09:00 Zinc Sulfate (Zinc Sulfate) 220 mg DAILY PO Last administered on 12/23/18 09:54; Admin Dose 220 MG; Start 12/09/18 at 09:00 Ibuprofen (Motrin) 400 mg Q6H PRN PO MILD PAIN(1-3) OR TEMP>38C Last adminis tered on 12/12/18 08:39; Admin Dose 400 MG; Start 12/10/18 at 21:00 Trimethoprim/ Sulfamethoxazole (Bactrim (Ds)) 1 tab DAILY PO Last administered on 12/23/18 09:54; Admin Dose 1 TAB; Start 12/12/18 at 12:00 Alteplase, Recombinant (Cathflo (Activase)) 2 mg MAY REPEAT X1 PRN CATHETER IF CATHETER REMAINS OCCULUDED Last administered on 12/12/18 18:04; Admin Dose 2 MG; Start 12/12/18 at 14:30 Acetaminophen/ Hydrocodone Bitart ([place] (5/325)) 1 tab Q4H PRN PO MODERATE PAIN LEVEL 4-6 Last administered on 12/23/18 06:43; Admin Dose 1 TAB; Start 12/12/18 at 15:00 Fluconazole (Diflucan) 100 mg DAILY PO Last administered on 12/23/18 09:54; Admin Dose 100 MG; Start 12/13/18 at 11:30 Morphine Sulfate (morphine) 4 mg DAILY PRN IV SEVERE PAIN LEVEL 7-10 Last administered on 12/20/18 11:59; Admin Dose 4 MG; Start 12/16/18 at 15:30 Ciprofloxacin (Cipro) 500 mg BID@18 PO Last administered on 12/23/18 06:42; Admin Dose 500 MG; Start 12/20/18 at 18:00 Zidovudine (Retrovir) 300 mg BID PO Last administered on 12/23/18 09:54; Admin Dose 300 MG; Start 12/21/18 at 21:00 Doxycycline Hyclate (Vibramycin) 100 mg 0800,1999 PO Last administered on 12/23/18at 09:58; Admin Dose 100 MG; Start 12/22/18 at 12:00 CRYSTAL TALAVERA NP Dec 23, 2018 11:28
[2018-12-23] MEDS: CALCIUM CARBONATE 500 MG CHEW TAB PO PRN ×2 (12:47→19:38)
[2018-12-23 14:00] VITALS: BP 98/53; PULSE 72; RESP 20
[2018-12-23] MEDS: DAKINS 0.0125%(1/40) 473 ML SOLUTION TP SCH (15:51)
--- NOTE | 2018-12-23 18:45 | DS ---
Date/Time of Note Date/Time of Note DATE: 12/23/18 TIME: 18:30 Discharge Summary Admission/Discharge Info Admit Date/Time Nov 30, 2018 at 20:47 Discharge Date/Time Patient Condition: Fair Consults Marisol Mariedarnell Akinscarl Procedures #1-Urology Operation/Procedure Performed Excision, debridement, drainage of gangrenous and infected scrotal, perineal, left inguinal and penile areas. Specimen Necrotic and gangrenous tissue from scrotum, perineal, left inguinal and penile base areas #2 A- urology Operation/Procedure Performed Debridement of scrotum base of penis and inguinal area. The other procedure that relates to the abdominal wall left flank left thigh right thigh will be dictated by Dr. Portillo Specimen Necrotic tissue from scrotum, necrotic scrotal skin, abdominal necrotizing fasciitis tissue #2B- general surgery Postoperative Diagnosis Necrotizing fasciitis Operation/Procedure Performed Incision and drainage of necrotizing fasciitis anterior abdominal wall left chest left thigh right thigh and left groin. #3-Neurosurgery Operation/Procedure Performed Debridement of the necrotizing fasciitis left thigh #4-Urology Operation/Procedure Performed Debridement of all necrotized tissue in the scrotum perineal area base of the penis left inguinal area and of all the abdominal wound including the muscles. Specimen Necrotic tissue from the scrotum, inguinal area and abdominal wounds. Abscess tissue from right buttock CAT scan abdomen pelvis 11/30 FINDINGS: The lung bases are clear of any infiltrate or nodule. No effusion is seen. The liver is enlarged measuring 21.4 cm. There is fatty infiltration. There is no mass or ductal dilatation. No gallstones are visualized. No adrenal or pancreatic abnormalities present. spleen is enlarged measuring 15 cm in AP diameter. No focal splenic mass is visualized. Kidneys are of normal size and contour. No hydronephrosis, calculus or mass Is seen. Ureters are of normal course and caliber with no stone. No bladder mass or stone is present. Uterus and ovaries appear normal. There is no aneurysm. No adenopathy is present. There are visible but nonpathologically enlarged retroperitoneal and bilateral inguinal nodes. No bowel mass or obstruction is present. The appendix is normal. No phlegmon, ascites or pneumoperitoneum is visualized. The osseous structures are intact. There is diffuse infiltration of the subcutaneous fat in the anterior pelvis extending into the score of. A 14 mm focal fluid collection is present on the lateral left scrotal wall. There is a left-sided hydrocele. Fluid is seen tracking along the superficial aspect of the left rectus muscle and is seen within the internal and external oblique muscles in the left abdomen. There is no gas present within the edema. IMPRESSION: Diffuse thickening wall scrotum with left-sided hydrocele and small focal fluid collection left scrotum. Question abscess. Extensive phlegmonous infiltration subcutaneous fat anterior pelvis with fluid tracking in the left anterior abdominal wall. Correlation with scrotal ultrasound is recommended for more definitive diagnosis. Visible but nonpathologically enlarged reactive lymph nodes. Hepatis splenomegaly. CT A/P 12/02 Pelvis IMPRESSION: 1. LEFT LATERAL ABDOMINAL WALL FOCAL FLUID EXTENSIVE FOCAL FLUID COLLECTION, WHICH APPEARS TO BE INCREASED IN SIZE SINCE PRIOR EXAMINATION. THIS IS INTERPOSED BETWEEN THE LEFT INTERNAL AND EXTERNAL OBLIQUE MUSCLES AND THERE IS ASSOCIATED EDEMATOUS THICKENING OF THE MUSCLES, CONSISTENT WITH MYOSITIS. FINDINGS APPEAR TO BE INCREASED IN SIZE SINCE PRIOR STUDY DATED NOVEMBER 30, 2018. THIS IS LOCATED AT THE LEVEL OF THE SPLEEN AND TRACKS INFERIORLY TO THE ANTERIOR LEFT PELVIS. 2. Large amount of generalized anasarca, also increased since prior examination. 3. Diffuse thickening of the villatoro of the scrotum. Several foci of air identified. There appears to be postsurgical changes. Correlate with clinical history. 4. No gross intra-abdominal/pelvic free fluid or free air. No gross focal fluid collections. No significant retroperitoneal abnormality. 5. No evidence of bowel obstruction. Fluid-filled loops of small bowel, which may represent gastroenteritis. 6. Hepatosplenomegaly. 7. Probable gallbladder sludge. MRI BRAIN 12/02 IMPRESSION: 1. No acute intracranial hemorrhage, infarction or mass. If clinical concern persists consider dedicated orbit MRI with contrast for further evaluation. 2. A few small foci of white matter signal abnormality, which are nonspecific in appearance and may reflect complicated migraines, early microvascular ischemic disease, sequela from prior traumatic or inflammatory insults. 3. Prompt retrocerebellar CSF space which may represent laila cisterna magna versus arachnoid cyst. 4. Minimal geeralized cerebral volume loss. 5. Mild bilateral mastoid air cells effusions. Hx of Present Illness Admitted with a scrotal infection. 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 Seen by ID, urology, pulmonary additionally. Has wound vacs. Wounds have improved. Has a [place] to keep his wounds clean. Presently stable and fit for transfer to tertiary care for grafting. 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 Present cultures abnormal for MRSA, Klebsiella, E. coli Home Meds Reported Medications Atropine Sulfate/0.9 %Sod Chlr (Atropine 0.01%-Ns Eye Drops) 10 Ml Drops, 1 ML OP BID, #1 12/05/18 Prednisolone Acetate* (Pred Forte*) 5 Ml Susp, 1 DROP LEFT EYE Q1HOUR, EA 12/04/18 Primary Care Provider Care Physician No Primary Time spent on discharge: > 30 minutes YANELY MOYA MD Dec 23, 2018 18:41
--- NOTE | 2018-12-23 19:48 | PN ---
Date/Time of Note Date/Time of Note DATE: 12/23/18 TIME: 19:45 Assessment/Plan VTE Prophylaxis Risk score (from Nsg)>0 risk: 4 SCD applied (from Ns): Yes SCD contraindicated: low risk/ambulating Pharmacological prophylaxis: LMWH Lines/Catheters IV Catheter Type (from Nrsg): Saline Lock Urinary Cath still in place: No Assessment/Plan Hospital Course A/P Nida gangrene: sp debridements. for transfer for grafting. 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 S: No distress. Sp multiple debridement; Has wound vacs. Wounds improved. Presently stable and fit for transfer to tertiary care for grafting. O: vss -cultures: MRSA, Klebsiella, E. coli PE no pallor reg ctab bs_+ nt nd no r r g; dressed wounds no edema Result Diagram: 12/21/1855712/21/1858 Exam/Review of Systems Exam Vitals Vital Signs Date Temp Pulse Resp B/P (MAP) Pulse Ox O2 O2 Flow FiO2 Time Delivery Rate 12/23/18 97.8 72 20 98/53 (68 94 14:00 12/23/18 Room Air 01:46 Intake and Output 12/22/18 12/22/18 12/23/18 1515:00 23:00 07:00 IntakeIntake Total 910 ml 540 ml OutputOutput Total 450 ml 30 ml 0 ml BalanceBalance 460 ml 510 ml 0 ml Medications Medication Current Medications Ondansetron HCl (Zofran Inj) 4 mg Q6H PRN IV NAUSEA AND/OR VOMITING Last administered on 12/11/18at 17:52; Admin Dose 4 MG; Start 11/30/18 at 21:00 Acetaminophen (Tylenol Liquid) 650 mg Q6H PRN PO PAIN LEVEL 1-3 OR FEVER Last administered on 12/14/18at 01:51; Admin Dose 650 MG; Start 11/30/18 at 21:00 Morphine Sulfate (morphine) 2 mg Q2H PRN IV MOD TO SEVERE PAIN Last administered on 12/23/18at 00:45; Admin Dose 2 MG; Start 12/04/18 at 11:30 Emtricitabine/ Tenofovir (Truvada) 1 tab DAILY PO Last administered on 12/23/18 09:54; Admin Dose 1 TAB; Start 12/06/18 at 09:00 Sodium Hypochlorite (Dakins Diluted (40)) 1 applic DAILY TP Last administered on 12/22/18 16:34; Admin Dose 1 APPLIC; Start 12/06/18 at 09:00 Prednisolone Acetate (Pred-Forte 1%) 1 drop DAILY LEFT EYE Last administered on 12/23/18 09:55; Admin Dose 1 DROP; Start 12/05/18 at 19:00 Atropine Sulfate (Atropine 1% Oph) 1 drop BID LEFT EYE Last administered on 12/23/18 09:54; Admin Dose 1 DROP; Start 12/07/18 at 21:00 Guaifenesin (Robitussin Liquid Cup) 100 mg Q4H PRN PO COUGH Last administered on 12/05/18 20:07; Admin Dose 100 MG; Start 12/05/18 at 19:00 Famotidine (Pepcid) 20 mg Q12 PO Last administered on 12/23/18 09:54; Admin Dose 20 MG; Start 12/06/18 at 21:00 Polyethylene Glycol (Miralax) 17 gm DAILY PO Last administered on 12/13/18 08:34; Admin Dose 17 GM; Start 12/07/18 at 16:00 Docusate Sodium (Colace) 200 mg BID PO Last administered on 12/13/18 08:35; Admin Dose 200 MG; Start 12/07/18 at 21:00 Lactulose (Enulose) 20 gm DAILY PRN PO CONSTIPATION Last administered on 12/07/18 17:07; Admin Dose 20 GM; Start 12/07/18 at 16:00 Miscellaneous Information (Pending Santyl Order For Wound Care) 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 PRN XX WOUND CARE; Start 12/08/18 at 02:30 Multivitamins/ Minerals (Theragran-M) 1 tab DAILY PO Last administered on 12/23/18 09:54; Admin Dose 1 TAB; Start 12/09/18 at 09:00 Ascorbic Acid (Vitamin C) 500 mg BID PO Last administered on 12/23/18 09:58; Admin Dose 500 MG; Start 12/09/18 at 09:00 Zinc Sulfate (Zinc Sulfate) 220 mg DAILY PO Last administered on 12/23/18 09:54; Admin Dose 220 MG; Start 12/09/18 at 09:00 Ibuprofen (Motrin) 400 mg Q6H PRN PO MILD PAIN(1-3) OR TEMP>38C Last administered on 12/12/18 08:39; Admin Dose 400 MG; Start 12/10/18 at 21:00 Trimethoprim/ Sulfamethoxazole (Bactrim (Ds)) 1 tab DAILY PO Last administered on 12/23/18 09:54; Admin Dose 1 TAB; Start 12/12/18 at 12:00 Alteplase, Recombinant (Cathflo (Activase)) 2 mg MAY REPEAT X1 PRN CATHETER IF CATHETER REMAINS OCCULUDED Last administered on 12/12/18 18:04; Admin Dose 2 MG; Start 12/12/18 at 14:30 Acetaminophen/ Hydrocodone Bitart ([place] (5/325)) 1 tab Q4H PRN PO MODERATE PAIN LEVEL 4-6 Last administered on 12/23/18 15:59; Admin Dose 1 TAB; Start 12/12/18 at 15:00 Fluconazole (Diflucan) 100 mg DAILY PO Last administered on 12/23/18 09:54; Admin Dose 100 MG; Start 12/13/18 at 11:30 Morphine Sulfate (morphine) 4 mg DAILY PRN IV SEVERE PAIN LEVEL 7-10 Last administered on 12/20/18 11:59; Admin Dose 4 MG; Start 12/16/18 at 15:30 Ciprofloxacin (Cipro) 500 mg BID@06,18 PO Last administered on 12/23/18 17:41; Admin Dose 500 MG; Start 12/20/18 at 18:00 Zidovudine (Retrovir) 300 mg BID PO Last administered on 12/23/18 09:54; Admin Dose 300 MG; Start 12/21/18 at 21:00 Doxycycline Hyclate (Vibramycin) 100 mg 0800,2000 PO Last administered on 12/23/18 09:58; Admin Dose 100 MG; Start 12/22/18 at 12:00 Calcium Carbonate (Tums) 500 mg Q6H PRN PO DISTENSION/GAS/BLOATING Last administered on 12/23/18 19:38; Admin Dose 500 MG; Start 12/23/18 at 13:00 YANELY MOYA MD Dec 23, 2018 19:48
[2018-12-23 20:04] VITALS: BP 99/63; PULSE 91; RESP 18
[2018-12-24] MEDS: HYDROCODONE/APAP (5/325) TAB PO PRN ×5 (00:14→22:45)
[2018-12-24 02:04] VITALS: BP 97/58; PULSE 88; RESP 18
[2018-12-24] MEDS: CIPROFLOXACIN 500 MG TAB PO SCH ×2 (05:12→17:28)
[2018-12-24] MEDS: CALCIUM CARBONATE 500 MG CHEW TAB PO PRN (06:29)
[2018-12-24 08:00] VITALS: BP 94/67; PULSE 85; RESP 19
[2018-12-24] MEDS: DOXYCYCLINE 100 MG TAB PO SCH ×2 (08:16→20:35)
[2018-12-24] MEDS: ENOXAPARIN 40 MG/0.4 ML SYG SC SCH (09:00)
[2018-12-24] MEDS: DOCUSATE SODIUM 100 MG CAP PO SCH (09:00)
[2018-12-24] MEDS: POLYETHYLENE GLYCOL 17 GM PACKET PO SCH (09:00)
[2018-12-24] MEDS: ASCORBIC ACID 500 MG TAB PO SCH ×2 (09:23→20:35)
[2018-12-24] MEDS: TRIMETHOPRIM/SULFAMETHOX (DS) TAB PO SCH (09:23)
[2018-12-24] MEDS: FAMOTIDINE 20 MG TAB PO SCH ×2 (09:23→20:35)
[2018-12-24] MEDS: MULTIVITAMINS/MINERALS TAB PO SCH (09:23)
[2018-12-24] MEDS: EMTRICITABINE/TENOFOVIR TAB PO SCH (09:24)
[2018-12-24] MEDS: ZIDOVUDINE 300 MG TAB PO SCH ×2 (09:24→20:35)
[2018-12-24] MEDS: ZINC SULFATE 220 MG CAP PO SCH (09:24)
[2018-12-24] MEDS: PREDNISOLONE ACET 1% 5 ML OPH LEFT EYE SCH (09:25)
[2018-12-24] MEDS: FLUCONAZOLE 100 MG TAB PO SCH (09:25)
[2018-12-24] MEDS: ATROPINE 1% 5 ML OPH LEFT EYE SCH ×2 (09:25→20:35)
[2018-12-24] MEDS: DAKINS 0.0125%(1/40) 473 ML SOLUTION TP SCH (09:29)
[2018-12-24 14:00] VITALS: BP 104/65; PULSE 77; RESP 18
--- NOTE | 2018-12-24 14:25 | CONS ---
Consult Date/Type/Reason Admit Date/Time Nov 30, 2018 at 20:47 Initial Consult Date 12/02/18 Type of Consultation: Urology Reason for Consultation Nida gangrene and necrotizing fasciitis Requesting Provider: ROBIN TAVAREZ MD Date/Time of Note DATE: 12/24/18 TIME: 14:23 Subjective Patient is feeling better but he has diarrhea Objective Vitals Vital Signs Date Temp Pulse Resp B/P (MAP) Pulse Ox O2 O2 Flow FiO2 Time Delivery Rate 12/24/18 98.3 85 19 94/67 (76) 97 Room Air 08:00 Intake and Output 12/23/18 12/23/18 12/24/18 1515:00 23:00 07:00 IntakeIntake Total 700 ml 250 ml 500 ml OutputOutput Total 50 ml BalanceBalance 700 ml 200 ml 500 ml Exam His wound is packed with the Kerlix. Results/Medications Result Diagram: 12/21/18 0558 12/21/18 0558 Home Meds Reported Medications Atropine Sulfate/0.9 %Sod Chlr (Atropine 0.01%-Ns Eye Drops) 10 Ml Drops, 1 ML OP BID, #1 12/05/18 Prednisolone Acetate* (Pred Forte*) 5 Ml Susp, 1 DROP LEFT EYE Q1HOUR, EA 12/04/18 Medications Current Medications Ondansetron HCl (Zofran Inj) 4 mg Q6H PRN IV NAUSEA AND/OR VOMITING Last administered on 12/11/18at 17:52; Admin Dose 4 MG; Start 11/30/18 at 21:00 Acetaminophen (Tylenol Liquid) 650 mg Q6H PRN PO PAIN LEVEL 1-3 OR FEVER Last administered on 12/14/18at 01:51; Admin Dose 650 MG; Start 11/30/18 at 21:00 Morphine Sulfate (morphine) 2 mg Q2H PRN IV MOD TO SEVERE PAIN Last administered on 12/23/18at 00:45; Admin Dose 2 MG; Start 12/04/18 at 11:30 Emtricitabine/ Tenofovir (Truvada) 1 tab DAILY PO Last administered on 12/24/18at 09:24; Admin Dose 1 TAB; Start 12/06/18 at 09:00 Sodium Hypochlorite (Dakins Diluted ()) 1 applic DAILY TP Last administered on 12/24/18 09:29; Admin Dose 1 APPLIC; Start 12/06/18 at 09:00 Prednisolone Acetate (Pred-Forte 1%) 1 drop DAILY LEFT EYE Last administered on 12/24/18 09:25; Admin Dose 1 DROP; Start 12/05/18 at 19:00 Atropine Sulfate (Atropine 1% Oph) 1 drop BID LEFT EYE Last administered on 12/24/18 09:25; Admin Dose 1 DROP; Start 12/07/18 at 21:00 Guaifenesin (Robitussin Liquid Cup) 100 mg Q4H PRN PO COUGH Last administered on 12/05/18 20:07; Admin Dose 100 MG; Start 12/05/18 at 19:00 Famotidine (Pepcid) 20 mg Q12 PO Last administered on 12/24/18 09:23; Admin Dose 20 MG; Start 12/06/18 at 21:00 Polyethylene Glycol (Miralax) 17 gm DAILY PO Last administered on 12/13/18 08:34; Admin Dose 17 GM; Start 12/07/18 at 16:00 Docusate Sodium (Colace) 200 mg BID PO Last administered on 12/23/18 20:46; Admin Dose 200 MG; Start 12/07/18 at 21:00 Lactulose (Enulose) 20 gm DAILY PRN PO CONSTIPATION Last administered on 12/07/18 17:07; Admin Dose 20 GM; Start 12/07/18 at 16:00 Miscellaneous Information (Pending Santyl Order For Wound Care) 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 PRN XX WOUND CARE; Start 12/08/18 at 02:30 Multivitamins/ Minerals (Theragran-M) 1 tab DAILY PO Last administered on 12/24/18 09:23; Admin Dose 1 TAB; Start 12/09/18 at 09:00 Ascorbic Acid (Vitamin C) 500 mg BID PO Last administered on 12/24/18 09:23; Admin Dose 500 MG; Start 12/09/18 at 09:00 Zinc Sulfate (Zinc Sulfate) 220 mg DAILY PO Last administered on 12/24/18 09:24; Admin Dose 220 MG; Start 12/09/18 at 09:00 Ibuprofen (Motrin) 400 mg Q6H PRN PO MILD PAIN(1-3) OR TEMP>38C Last administered on 12/12/18 08:39; Admin Dose 400 MG; Start 12/10/18 at 21:00 Trimethoprim/ Sulfamethoxazole (Bactrim (Ds)) 1 tab DAILY PO Last administered on 12/24/18 09:23; Admin Dose 1 TAB; Start 12/12/18 at 12:00 Alteplase, Recombinant (Cathflo (Activase)) 2 mg MAY REPEAT X1 PRN CATHETER IF CATHETER REMAINS OCCULUDED Last administered on 12/12/18 18:04; Admin Dose 2 MG; Start 12/12/18 at 14:30 Acetaminophen/ Hydrocodone Bitart ([place] (5/325)) 1 tab Q4H PRN PO MODERATE PAIN LEVEL 4-6 Last administered on 12/24/18 10:48; Admin Dose 1 TAB; Start 12/12/18 at 15:00 Fluconazole (Diflucan) 100 mg DAILY PO Last administered on 12/24/18 09:25; Admin Dose 100 MG; Start 12/13/18 at 11:30 Morphine Sulfate (morphine) 4 mg DAILY PRN IV SEVERE PAIN LEVEL 7-10 Last administered on 12/20/18 11:59; Admin Dose 4 MG; Start 12/16/18 at 15:30 Ciprofloxacin (Cipro) 500 mg BID@06,18 PO Last administered on 12/24/18 05:12; Admin Dose 500 MG; Start 12/20/18 at 18:00 Zidovudine (Retrovir) 300 mg BID PO Last administered on 12/24/18 09:24; Admin Dose 300 MG; Start 12/21/18 at 21:00 Doxycycline Hyclate (Vibramycin) 100 mg 0800,2000 PO Last administered on 12/24/18 08:16; Admin Dose 100 MG; Start 12/22/18 at 12:00 Calcium Carbonate (Tums) 500 mg Q6H PRN PO DISTENSION/GAS/BLOATING Last administered on 12/24/18 06:29; Admin Dose 500 MG; Start 12/23/18 at 13:00 Enoxaparin Sodium (Lovenox) 40 mg DAILY SC ; Start 12/24/18 at 09:00 Assessment/Plan Hospital Course (Demo Recall) 42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 He underwent incision and drainage of the abdominal wall all the way up to the lower ribs on the left side and also of the left thigh and right inguinal area and debridement of the scrotum and perineal area. The wounds are getting better. He underwent debridement and incision and drainage of a right buttock abscess. The culture from the buttock grew MRSA. He is doing better. The abdominal wound as well as a scrotal wound are looking healthy and red. I think he is ready to have these closed but he will need skin graft and the plastic surgeon to do that for him. Patient has diarrhea today and there is no change in his condition. Still awaiting a call from [facility] when they will have a bed available to transfer him. GWEN BUCK MD Dec 24, 2018 14:25
--- NOTE | 2018-12-24 18:41 | PN ---
Date/Time of Note Date/Time of Note DATE: 12/24/18 TIME: 18:39 Assessment/Plan VTE Prophylaxis Risk score (from Nsg)>0 risk: 1 SCD applied (from Nsg): Yes SCD contraindicated: low risk/ambulating Pharmacological prophylaxis: LMWH Lines/Catheters IV Catheter Type (from Nrsg): Saline Lock Urinary Cath still in place: No Assessment/Plan Hospital Course A/P Nida gangrene: sp debridements. Stable, for transfer to tertiary care for skin grafting. HIV last CD4 count 143, on therapy Hepatitis B Past tobacco Past drugs: Cocaine marijuana Abnormal LFTs Past alcoholism encephalopathy appears stable/resolved Acute renal failure resolved Postop transient respiratory failure extubated promptly SIADH/hyponatremia stable Left eye blindness PICC line associated infection? Diarrhea, likely Colace MiraLAX associated. Benign, observe S: 12/23 no distress. Sp multiple debridement; Has wound vacs. Wounds improved. Presently stable and fit for transfer to tertiary care for grafting. 12/24: Diarrhea but no abdominal pain or fever. On Colace MiraLAX. O: vss -cultures: MRSA, Klebsiella, E. coli PE no pallor reg ctab bs+ nt nd no r r g; dressed wounds no edema Result Diagram: 12/21/18 0558 12/21/18 0558 Exam/Review of Systems Exam Vitals Vital Signs Date Temp Pulse Resp B/P (MAP) Pulse Ox O2 O2 Flow FiO2 Time Delivery Rate 12/24/18 97.8 77 18 104/65 100 Room Air 14:00 (78) Intake and Output 12/23/18 12/23/18 12/24/18 1515:00 23:00 07:00 IntakeIntake Total 700 ml 250 ml 500 ml OutputOutput Total 50 ml BalanceBalance 700 ml 200 ml 500 ml Medications Medication Current Medications Ondansetron HCl (Zofran Inj) 4 mg Q6H PRN IV NAUSEA AND/OR VOMITING Last administered on 12/11/18at 17:52; Admin Dose 4 MG; Start 11/30/18 at 21:00 Acetaminophen (Tylenol Liquid) 650 mg Q6H PRN PO PAIN LEVEL 1-3 OR FEVER Last administered on 12/14/18at 01:51; Admin Dose 650 MG; Start 11/30/18 at 21:00 Morphine Sulfate (morphine) 2 mg Q2H PRN IV MOD TO SEVERE PAIN Last administered on 12/23/18 00:45; Admin Dose 2 MG; Start 12/04/18 at 11:30 Emtricitabine/ Tenofovir (Truvada) 1 tab DAILY PO Last administered on 12/24/18 09:24; Admin Dose 1 TAB; Start 12/06/18 at 09:00 Sodium Hypochlorite (Dakins Diluted ()) 1 applic DAILY TP Last administered on 12/24/18 09:29; Admin Dose 1 APPLIC; Start 12/06/18 at 09:00 Prednisolone Acetate (Pred-Forte 1%) 1 drop DAILY LEFT EYE Last administered on 12/24/18 09:25; Admin Dose 1 DROP; Start 12/05/18 at 19:00 Atropine Sulfate (Atropine 1% Oph) 1 drop BID LEFT EYE Last administered on 12/24/18 09:25; Admin Dose 1 DROP; Start 12/07/18 at 21:00 Guaifenesin (Robitussin Liquid Cup) 100 mg Q4H PRN PO COUGH Last administered on 12/05/18 20:07; Admin Dose 100 MG; Start 12/05/18 at 19:00 Famotidine (Pepcid) 20 mg Q12 PO Last administered on 12/24/18 09:23; Admin Dose 20 MG; Start 12/06/18 at 21:00 Polyethylene Glycol (Miralax) 17 gm DAILY PO Last administered on 12/13/18 08:34; Admin Dose 17 GM; Start 12/07/18 at 16:00 Docusate Sodium (Colace) 200 mg BID PO Last administered on 12/23/18 20:46; Admin Dose 200 MG; Start 12/07/18 at 21:00 Lactulose (Enulose) 20 gm DAILY PRN PO CONSTIPATION Last administered on 12/07/18 17:07; Admin Dose 20 GM; Start 12/07/18 at 16:00 Miscellaneous Information (Pending [facility] Order For Wound Care) 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 PRN XX WOUND CARE; Start 12/08/18 at 02:30 Multivitamins/ Minerals (Theragran-M) 1 tab DAILY PO Last administered on 12/24/18 09:23; Admin Dose 1 TAB; Start 12/09/18 at 09:00 Ascorbic Acid (Vitamin C) 500 mg BID PO Last administered on 12/24/18 09:23; Admin Dose 500 MG; Start 12/09/18 at 09:00 Zinc Sulfate (Zinc Sulfate) 220 mg DAILY PO Last administered on 12/24/18 09:24; Admin Dose 220 MG; Start 12/09/18 at 09:00 Ibuprofen (Motrin) 400 mg Q6H PRN PO MILD PAIN(1-3) OR TEMP>38C Last administered on 12/12/18 08:39; Admin Dose 400 MG; Start 12/10/18 at 21:00 Trimethoprim/ Sulfamethoxazole (Bactrim (Ds)) 1 tab DAILY PO Last administered on 12/24/18 09:23; Admin Dose 1 TAB; Start 12/12/18 at 12:00 Alteplase, Recombinant (Cathflo (Activase)) 2 mg MAY REPEAT X1 PRN CATHETER IF CATHETER REMAINS OCCULUDED Last administered on 12/12/18 18:04; Admin Dose 2 MG; Start 12/12/18 at 14:30 Acetaminophen/ Hydrocodone Bitart ([place] (5/325)) 1 tab Q4H PRN PO MODERATE PAIN LEVEL 4-6 Last administered on 12/24/18 17:31; Admin Dose 1 TAB; Start 12/12/18 at 15:00 Fluconazole (Diflucan) 100 mg DAILY PO Last administered on 12/24/18 09:25; Admin Dose 100 MG; Start 12/13/18 at 11:30 Morphine Sulfate (morphine) 4 mg DAILY PRN IV SEVERE PAIN LEVEL 7-10 Last administered on 12/20/18 11:59; Admin Dose 4 MG; Start 12/16/18 at 15:30 Ciprofloxacin (Cipro) 500 mg BID@06,18 PO Last administered on 12/24/18 17:28; Admin Dose 500 MG; Start 12/20/18 at 18:00 Zidovudine (Retrovir) 300 mg BID PO Last administered on 12/24/18 09:24; Admin Dose 300 MG; Start 12/21/18 at 21:00 Doxycycline Hyclate (Vibramycin) 100 mg 0800,2000 PO Last administered on 12/24/18 08:16; Admin Dose 100 MG; Start 12/22/18 at 12:00 Calcium Carbonate (Tums) 500 mg Q6H PRN PO DISTENSION/GAS/BLOATING Last administered on 12/24/18at 06:29; Admin Dose 500 MG; Start 12/23/18 at 13:00 Enoxaparin Sodium (Lovenox) 40 mg DAILY SC ; Start 12/24/18 at 09:00 YANELY MOYA MD Dec 24, 2018 18:41
[2018-12-24 20:18] VITALS: BP 98/65; PULSE 89; RESP 17
[2018-12-25 02:25] VITALS: BP 91/63; PULSE 58; RESP 18
[2018-12-25] MEDS: HYDROCODONE/APAP (5/325) TAB PO PRN ×4 (02:51→21:11)
[2018-12-25] MEDS: CIPROFLOXACIN 500 MG TAB PO SCH (05:43)
[2018-12-25] MEDS: DOXYCYCLINE 100 MG TAB PO SCH (07:54)
[2018-12-25 08:03] VITALS: BP 94/56; PULSE 78; RESP 17
[2018-12-25] MEDS: EMTRICITABINE/TENOFOVIR TAB PO SCH (08:31)
[2018-12-25] MEDS: FAMOTIDINE 20 MG TAB PO SCH (08:31)
[2018-12-25] MEDS: TRIMETHOPRIM/SULFAMETHOX (DS) TAB PO SCH (08:31)
[2018-12-25] MEDS: ZINC SULFATE 220 MG CAP PO SCH (08:31)
[2018-12-25] MEDS: FLUCONAZOLE 100 MG TAB PO SCH (08:31)
[2018-12-25] MEDS: MULTIVITAMINS/MINERALS TAB PO SCH (08:31)
[2018-12-25] MEDS: ZIDOVUDINE 300 MG TAB PO SCH ×2 (08:31→21:05)
[2018-12-25] MEDS: ATROPINE 1% 5 ML OPH LEFT EYE SCH ×2 (08:32→21:06)
[2018-12-25] MEDS: DAKINS 0.0125%(1/40) 473 ML SOLUTION TP SCH (08:32)
[2018-12-25] MEDS: PREDNISOLONE ACET 1% 5 ML OPH LEFT EYE SCH (08:32)
[2018-12-25] MEDS: ASCORBIC ACID 500 MG TAB PO SCH ×2 (08:32→21:05)
[2018-12-25] MEDS: ENOXAPARIN 40 MG/0.4 ML SYG SC SCH (09:00)
--- NOTE | 2018-12-25 11:47 | CONS ---
Assessment/Plan Assessment/Plan Hospital Course (Demo Recall) looks comfortable, no fevers + loose stools Indwelling: PIV Microbiology: Wound culture grew MRSA, repeat cx + Kleb, E coli, MRSA Antimicrobials: Doxycycline, Cipro, Truvada, Retrovir, Diflucan, Bactrim Physical examination: Well-developed well-nourished middle-aged man who is alert in no distress. Head atraumatic normocephalic sclera nonicteric neck is supple chest rise symmetrical breath sounds clear heart: S1-S2 abdomen soft bowel sounds present extremities without cyanosis. Skin: Patient has dressing over his left side of the abdomen and bilateral wound vacs to hips Assessment: 1. S/p ongoing fevers==> resolved after PICC dc'd 2. Fornier's gangrene and necrotizing fasciitis, status post multiple recurrent debridement ==> latest one on 12/08/18 by urology 3. AIDS===> CD4 12/13 143 4. Status post renal failure Plan: Remains stable, awaiting for tx to [facility] for skin graft, add Flagyl, dc Cpro and Doxycycline, continue BAEZ and proph Rx Consultation Date/Type/Reason Admit Date/Time Nov 30, 2018 at 20:47 Initial Consult Date 12/02/18 Type of Consult id Requesting Provider: ROBIN TAVAREZ MD Date/Time of Note DATE: 12/25/18 TIME: 11:45 Exam/Review of Systems Exam Vitals Vital Signs Date Temp Pulse Resp B/P (MAP) Pulse Ox O2 O2 Flow FiO2 Time Delivery Rate 12/25/18 97.9 78 17 94/56 (69) 100 Room Air 08:03 Intake and Output 12/24/18 12/24/18 12/25/18 1515:00 23:00 07:00 IntakeIntake Total 940 ml 500 ml OutputOutput Total 300 ml 650 ml 550 ml BalanceBalance 640 ml -150 ml -550 ml Results Result Diagram: 12/21/18 0558 12/21/18 0558 Medications Medication Current Medications Ondansetron HCl (Zofran Inj) 4 mg Q6H PRN IV NAUSEA AND/OR VOMITING Last administered on 12/11/18at 17:52; Admin Dose 4 MG; Start 11/30/18 at 21:00 Acetaminophen (Tylenol Liquid) 650 mg Q6H PRN PO PAIN LEVEL 1-3 OR FEVER Last administered on 12/14/18 01:51; Admin Dose 650 MG; Start 11/30/18 at 21:00 Morphine Sulfate (morphine) 2 mg Q2H PRN IV MOD TO SEVERE PAIN Last administered on 12/23/18 00:45; Admin Dose 2 MG; Start 12/04/18 at 11:30 Emtricitabine/ Tenofovir (Truvada) 1 tab DAILY PO Last administered on 12/25/18 08:31; Admin Dose 1 TAB; Start 12/06/18 at 09:00 Sodium Hypochlorite (Dakins Diluted ()) 1 applic DAILY TP Last administered on 12/25/18 08:32; Admin Dose 1 APPLIC; Start 12/06/18 at 09:00 Prednisolone Acetate (Pred-Forte 1%) 1 drop DAILY LEFT EYE Last administered on 12/25/18 08:32; Admin Dose 1 DROP; Start 12/05/18 at 19:00 Atropine Sulfate (Atropine 1% Oph) 1 drop BID LEFT EYE Last administered on 12/25/18 08:32; Admin Dose 1 DROP; Start 12/07/18 at 21:00 Guaifenesin (Robitussin Liquid Cup) 100 mg Q4H PRN PO COUGH Last administered on 12/05/18 20:07; Admin Dose 100 MG; Start 12/05/18 at 19:00 Famotidine (Pepcid) 20 mg Q12 PO Last administered on 12/25/18 08:31; Admin Dose 20 MG; Start 12/06/18 at 21:00 Lactulose (Enulose) 20 gm DAILY PRN PO CONSTIPATION Last administered on 12/07/18 17:07; Admin Dose 20 GM; Start 12/07/18 at 16:00 [facility] 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 PRN XX WOUND CARE; Start 12/08/18 at 02:30 Multivitamins/ Minerals (Theragran-M) 1 tab DAILY PO Last administered on 08:31; Admin Dose 1 TAB; Start 12/09/18 at 09:00 Ascorbic Acid (Vitamin C) 500 mg BID PO Last administered on 12/25/18 08:32; Admin Dose 500 MG; Start 12/09/18 at 09:00 Zinc Sulfate (Zinc Sulfate) 220 mg DAILY PO Last administered on 12/25/18 08:31; Admin Dose 220 MG; Start 12/09/18 at 09:00 Ibuprofen (Motrin) 400 mg Q6H PRN PO MILD PAIN(1-3) OR TEMP>38C Last administered on 12/12/18 08:39; Admin Dose 400 MG; Start 12/10/18 at 21:00 Trimethoprim/ Sulfamethoxazole (Bactrim (Ds)) 1 tab DAILY PO Last administered on 12/25/18 08:31; Admin Dose 1 TAB; Start 12/12/18 at 12:00 Alteplase, Recombinant (Cathflo (Activase)) 2 mg MAY REPEAT X1 PRN CATHETER IF CATHETER REMAINS OCCULUDED Last administered on 12/12/18 18:04; Admin Dose 2 MG; Start 12/12/18 at 14:30 Acetaminophen/ Hydrocodone Bitart ([place] (5/325)) 1 tab Q4H PRN PO MODERATE PAIN LEVEL 4-6 Last administered on 12/25/18 08:30; Admin Dose 1 TAB; Start 12/12/18 at 15:00 Fluconazole (Diflucan) 100 mg DAILY PO Last administered on 12/25/18 08:31; Admin Dose 100 MG; Start 12/13/18 at 11:30 Morphine Sulfate (morphine) 4 mg DAILY PRN IV SEVERE PAIN LEVEL 7-10 Last administered on 12/20/18 11:59; Admin Dose 4 MG; Start 12/16/18 at 15:30 Ciprofloxacin (Cipro) 500 mg BID@,18 PO Last administered on 12/25/18 05:43; Admin Dose 500 MG; Start 12/20/18 at 18:00 Zidovudine (Retrovir) 300 mg BID PO Last administered on 12/25/18 08:31; Admin Dose 300 MG; Start 12/21/18 at 21:00 Doxycycline Hyclate (Vibramycin) 100 mg 0800,1999 PO Last administered on 12/25/18 07:54; Admin Dose 100 MG; Start 12/22/18 at 12:00 Calcium Carbonate (Tums) 500 mg Q6H PRN PO DISTENSION/GAS/BLOATING Last administered on 12/24/18 06:29; Admin Dose 500 MG; Start 12/23/18 at 13:00 Enoxaparin Sodium (Lovenox) 40 mg DAILY SC ; Start 12/24/18 at 09:00 Lactobacillus Acidophilus/ Rhamnosus (Culturelle) 1 cap BID PO ; Start 12/26/18 at 09:00 CRYSTAL TALAVERA NP Dec 25, 2018 11:46
[2018-12-25] MEDS: metroNIDAZOLE 500 MG TAB PO SCH ×2 (12:17→21:05)
[2018-12-25 14:00] VITALS: BP 92/59; PULSE 87; RESP 18
--- NOTE | 2018-12-25 14:56 | PN ---
Date/Time of Note Date/Time of Note DATE: 12/25/18 TIME: 14:54 Assessment/Plan VTE Prophylaxis Risk score (from Nsg)>0 risk: 1 SCD applied (from Nsg): Yes SCD contraindicated: low risk/ambulating Pharmacological prophylaxis: LMWH Lines/Catheters IV Catheter Type (from Nrsg): Saline Lock Urinary Cath still in place: No Assessment/Plan Hospital Course A/P Nida gangrene: sp debridements. Stable, transfer to tertiary for skin grafting. [facility] refused; try 2nd option HIV last CD4 count 143, on therapy Hepatitis B Past tobacco Past drugs: Cocaine marijuana Abnormal LFTs Past alcoholism encephalopathy stable/resolved Acute renal failure resolved Postop transient respiratory failure extubated promptly SIADH/hyponatremia stable Left eye blindness PICC line associated infection? Diarrhea, likely Colace MiraLAX associated. Benign, observe; ro c diff S: 12/23 no distress. Sp multiple debridement; Has wound vacs. Wounds improved. Presently stable and fit for transfer to tertiary care for grafting. 12/24: Diarrhea but no abdominal pain or fever. On Colace MiraLAX. 12/25: No abd pain/ fever O: vss -cultures: MRSA, Klebsiella, E. coli PE no pallor reg ctab bs+ nt nd no r r g; dressed wounds no edema Result Diagram: 12/21/18 0558 12/21/18 0558 Exam/Review of Systems Exam Vitals Vital Signs Date Temp Pulse Resp B/P (MAP) Pulse Ox O2 O2 Flow FiO2 Time Delivery Rate 12/25/18 98.3 87 18 92/59 (70) 97 Room Air 14:00 Intake and Output 12/24/18 12/24/18 12/25/18 1515:00 23:00 07:00 IntakeIntake Total 940 ml 500 ml OutputOutput Total 300 ml 650 ml 550 ml BalanceBalance 640 ml -150 ml -550 ml Medications Medication Current Medications Ondansetron HCl (Zofran Inj) 4 mg Q6H PRN IV NAUSEA AND/OR VOMITING Last administered on 12/11/18at 17:52; Admin Dose 4 MG; Start 11/30/18 at 21:00 Acetaminophen (Tylenol Liquid) 650 mg Q6H PRN PO PAIN LEVEL 1-3 OR FEVER Last administered on 12/14/18at 01:51; Admin Dose 650 MG; Start 11/30/18 at 21:00 Morphine Sulfate (morphine) 2 mg Q2H PRN IV MOD TO SEVERE PAIN Last administered on 12/23/18 00:45; Admin Dose 2 MG; Start 12/04/18 at 11:30 Emtricitabine/ Tenofovir (Truvada) 1 tab DAILY PO Last administered on 12/25/18 08:31; Admin Dose 1 TAB; Start 12/06/18 at 09:00 Sodium Hypochlorite (Dakins Diluted ()) 1 applic DAILY TP Last administered on 12/25/18 08:32; Admin Dose 1 APPLIC; Start 12/06/18 at 09:00 Prednisolone Acetate (Pred-Forte 1%) 1 drop DAILY LEFT EYE Last administered on 12/25/18 08:32; Admin Dose 1 DROP; Start 12/05/18 at 19:00 Atropine Sulfate (Atropine 1% Oph) 1 drop BID LEFT EYE Last administered on 12/25/18 08:32; Admin Dose 1 DROP; Start 12/07/18 at 21:00 Guaifenesin (Robitussin Liquid Cup) 100 mg Q4H PRN PO COUGH Last administered on 12/05/18 20:07; Admin Dose 100 MG; Start 12/05/18 at 19:00 Famotidine (Pepcid) 20 mg Q12 PO Last administered on 12/25/18 08:31; Admin Dose 20 MG; Start 12/06/18 at 21:00 Lactulose (Enulose) 20 gm DAILY PRN PO CONSTIPATION Last administered on 12/07/18 17:07; Admin Dose 20 GM; Start 12/07/18 at 16:00 Miscellaneous Information (Pending [facility] Order For Wound Care) 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 PRN XX WOUND CARE; Start 12/08/18 at 02:30 Multivitamins/ Minerals (Theragran-M) 1 tab DAILY PO Last administered on 12/25/18 08:31; Admin Dose 1 TAB; Start 12/09/18 at 09:00 Ascorbic Acid (Vitamin C) 500 mg BID PO Last administered on 12/25/18 08:32; Admin Dose 500 MG; Start 12/09/18 at 09:00 Zinc Sulfate (Zinc Sulfate) 220 mg DAILY PO Last administered on 7/28/19at 08:31; Admin Dose 220 MG; Start 12/09/18 at 09:00 Ibuprofen (Motrin) 400 mg Q6H PRN PO MILD PAIN(1-3) OR TEMP>38C Last administered on 12/12/18 08:39; Admin Dose 400 MG; Start 12/10/18 at 21:00 Trimethoprim/ Sulfamethoxazole (Bactrim (Ds)) 1 tab DAILY PO Last administered on 12/25/18 08:31; Admin Dose 1 TAB; Start 12/12/18 at 12:00 Alteplase, Recombinant (Cathflo (Activase)) 2 mg MAY REPEAT X1 PRN CATHETER IF CATHETER REMAINS OCCULUDED Last administered on 12/12/18 18:04; Admin Dose 2 MG; Start 12/12/18 at 14:30 Acetaminophen/ Hydrocodone Bitart ([place] (5/325)) 1 tab Q4H PRN PO MODERATE PAIN LEVEL 4-6 Last administered on 12/25/18 08:30; Admin Dose 1 TAB; Start 12/12/18 at 15:00 Fluconazole (Diflucan) 100 mg DAILY PO Last administered on 12/25/18 08:31; Admin Dose 100 MG; Start 12/13/18 at 11:30 Morphine Sulfate (morphine) 4 mg DAILY PRN IV SEVERE PAIN LEVEL 7-10 Last administered on 12/20/18 11:59; Admin Dose 4 MG; Start 12/16/18 at 15:30 Zidovudine (Retrovir) 300 mg BID PO Last administered on 12/25/18 08:31; Admin Dose 300 MG; Start 12/21/18 at 21:00 Calcium Carbonate (Tums) 500 mg Q6H PRN PO DISTENSION/GAS/BLOATING Last administered on 12/24/18 06:29; Admin Dose 500 MG; Start 12/23/18 at 13:00 Enoxaparin Sodium (Lovenox) 40 mg DAILY SC ; Start 12/24/18 at 09:00 Lactobacillus Acidophilus/ Rhamnosus (Culturelle) 1 cap BID PO ; Start 12/26/18 at 09:00 Metronidazole (Flagyl) 500 mg Q8 PO Last administered on 12/25/18 12:17; Admin Dose 500 MG; Start 12/25/18 at 12:00 YANELY MOYA MD Dec 25, 2018 14:56
[2018-12-25 20:00] VITALS: BP 124/76; PULSE 85; RESP 18
[2018-12-26 02:00] VITALS: BP 95/59; PULSE 83; RESP 16
[2018-12-26] MEDS: metroNIDAZOLE 500 MG TAB PO SCH ×3 (05:37→21:02)
[2018-12-26] MEDS: HYDROCODONE/APAP (5/325) TAB PO PRN ×3 (05:37→21:02)
[2018-12-26 08:03] VITALS: BP 101/64; PULSE 72; RESP 17
[2018-12-26] MEDS: FAMOTIDINE 20 MG TAB PO SCH (09:25)
[2018-12-26] MEDS: ZIDOVUDINE 300 MG TAB PO SCH ×2 (09:25→21:02)
[2018-12-26] MEDS: ZINC SULFATE 220 MG CAP PO SCH (09:25)
[2018-12-26] MEDS: LACTOBACILLUS RHAMNOSUS CAP PO SCH ×2 (09:25→21:02)
[2018-12-26] MEDS: ASCORBIC ACID 500 MG TAB PO SCH ×2 (09:25→21:02)
[2018-12-26] MEDS: FLUCONAZOLE 100 MG TAB PO SCH (09:25)
[2018-12-26] MEDS: MULTIVITAMINS/MINERALS TAB PO SCH (09:25)
[2018-12-26] MEDS: EMTRICITABINE/TENOFOVIR TAB PO SCH (09:25)
[2018-12-26] MEDS: TRIMETHOPRIM/SULFAMETHOX (DS) TAB PO SCH (09:25)
[2018-12-26] MEDS: ENOXAPARIN 40 MG/0.4 ML SYG SC SCH (09:26)
[2018-12-26] MEDS: PREDNISOLONE ACET 1% 5 ML OPH LEFT EYE SCH (09:26)
[2018-12-26] MEDS: ATROPINE 1% 5 ML OPH LEFT EYE SCH ×2 (09:26→21:02)
[2018-12-26 14:05] VITALS: BP 90/55; PULSE 80; RESP 18
[2018-12-26] MEDS: DAKINS 0.0125%(1/40) 473 ML SOLUTION TP SCH (14:37)
--- NOTE | 2018-12-26 14:41 | PN ---
Date/Time of Note Date/Time of Note DATE: 12/26/18 TIME: 14:32 Assessment/Plan VTE Prophylaxis Risk score (from Nsg)>0 risk: 3 SCD applied (from Nsg): Yes Pharmacological prophylaxis: other Lines/Catheters IV Catheter Type (from Nrsg): Saline Lock Urinary Cath still in place: No Assessment/Plan Hospital Course S: Patient worked with physical therapy earlier today. Denies any upper or lower GI bleeding. Tolerating diet. Wound VAC still in place. O: vs - see below PE: Gen: Lying in bed, family at bedside, answering questions appropriately HEENT: PERRL, EOMI Neck: Supple, no pallor CV: reg Res: ctab GI: bs+ nt nd no r r g; dressed wounds M/S: no edema A/P: 43-year-old male who presented with: # Nida gangrene: sp multiple debridements this admission. Again wound vacs in place, but still waiting plastic surgery consult, although this is proving difficult to obtain as there was an attempt to transfer to tertiary for skin grafting. [facility], [facility], and [facility] have all refused; now trying other options. -For now continue wound care per wound nurse consult and recommendations including wound VAC -Continue current antibiotics per ID recommendations and pain control medications -Again, trying other options for transfer to tertiary center for plastic surgery eval and consult, will also consult plastic surgeon here in the community to see if he will evaluate the patient # HIV: Diagnosed on this admission, last CD4 count 224 on December 03, 2018 -Continue on HAART on therapy, follow-up ID recommendations # Hepatitis B? -We will check hepatitis panel # Past tobacco and past drug use: Cocaine marijuana -Counseled on cessation # Abnormal LFTs: We will check liver profile in the morning to look at the trend # Past alcoholism-Counseled on cessation #encephalopathy: stable/resolved -monitor # Acute renal failure: resolved -monitor # Postop transient respiratory failure extubated promptly -Monitor for now # SIADH/hyponatremia stable -Monitor # Left eye blindness # PICC line associated infection?: Appears to be improving - follow-up ID recommendations, continue current antibiotics Diarrhea: Resolved now, likely Colace MiraLAX associated. - Benign, observe; ro c diff Result Diagram: 12/26/18 1125 12/26/18 0530 Results 24hrs Laboratory Tests Test 12/26/18 05:30 12/26/18 11:25 White Blood Count 3.7 L Red Blood Count 2.64 L Hemoglobin 7.3 L 7.2 L Hematocrit 22.2 L 22.3 L Mean Corpuscular Volume 84.1 Mean Corpuscular Hemoglobin 27.7 L Mean Corpuscular Hemoglobin Concent 32.9 Red Cell Distribution Width 15.8 H Platelet Count 644 #H Mean Platelet Volume 9.0 Immature Granulocytes % 0.300 Neutrophils % 57.5 Segmented Neutrophils % (Manual) 52 Band Neutrophils % (Manual) 6 H Lymphocytes % 28.8 Lymphocytes % (Manual) 32 Monocytes % 10.6 Monocytes % (Manual) 8 Eosinophils % 1.4 Basophils % 1.4 Basophils % (Manual) 2 Nucleated Red Blood Cells % 0.0 Immature Granulocytes # 0.010 Neutrophils # 2.1 Neutrophils # (Manual) 1.9 Band Neutrophils # 0.2 Lymphocytes (Manual) 1.1 Lymphocytes # 1.1 Monocytes # 0.4 Monocytes # (Manual) 0.2 L Eosinophils # 0.1 Basophils # 0.1 Basophils # (Manual) 0.0 Nucleated Red Blood Cells # 0.0 Platelet Estimate INCREASED Giant Platelets 1 H Polychromasia 1+ Anisocytosis 1+ Microcytosis 1+ Sodium Level 135 Potassium Level 4.1 Chloride Level 102 Carbon Dioxide Level 26 Anion Gap 7 Blood Urea Nitrogen 14 Creatinine 0.78 Est Glomerular Filtrat Rate mL/min > 60 Glucose Level 88 Calcium Level 8.8 Total Bilirubin 0.3 Direct Bilirubin 0.00 Indirect Bilirubin 0.3 Aspartate Amino Transf (AST/SGOT) 29 Alanine Aminotransferase (ALT/SGPT) 18 Alkaline Phosphatase 95 Total Protein 7.5 Albumin 3.2 L Globulin 4.30 H Albumin/Globulin Ratio 0.74 Exam/Review of Systems Exam Vitals Vital Signs Date Temp Pulse Resp B/P (MAP) Pulse Ox O2 O2 Flow FiO2 Time Delivery Rate 12/26/18 97.8 80 18 90/55 (67) 98 14:05 12/25/18 Room Air 20:00 Intake and Output 12/25/18 12/25/18 12/26/18 1515:00 23:00 07:00 IntakeIntake Total 820 ml 400 ml 120 ml OutputOutput Total 1000 ml 1210 ml 500 ml BalanceBalance -180 ml -810 ml -380 ml Results Results 24hrs Laboratory Tests Test 12/26/18 05:30 12/26/18 11:25 White Blood Count 3.7 L Red Blood Count 2.64 L Hemoglobin 7.3 L 7.2 L Hematocrit 22.2 L 22.3 L Mean Corpuscular Volume 84.1 Mean Corpuscular Hemoglobin 27.7 L Mean Corpuscular Hemoglobin Concent 32.9 Red Cell Distribution Width 15.8 H Platelet Count 644 #H Mean Platelet Volume 9.0 Immature Granulocytes % 0.300 Neutrophils % 57.5 Segmented Neutrophils % (Manual) 52 Band Neutrophils % (Manual) 6 H Lymphocytes % 28.8 Lymphocytes % (Manual) 32 Monocytes % 10.6 Monocytes % (Manual) 8 Eosinophils % 1.4 Basophils % 1.4 Basophils % (Manual) 2 Nucleated Red Blood Cells % 0.0 Immature Granulocytes # 0.010 Neutrophils # 2.1 Neutrophils # (Manual) 1.9 Band Neutrophils # 0.2 Lymphocytes (Manual) 1.1 Lymphocytes # 1.1 Monocytes # 0.4 Monocytes # (Manual) 0.2 L Eosinophils # 0.1 Basophils # 0.1 Basophils # (Manual) 0.0 Nucleated Red Blood Cells # 0.0 Platelet Estimate INCREASED Giant Platelets 1 H Polychromasia 1+ Anisocytosis 1+ Microcytosis 1+ Sodium Level 135 Potassium Level 4.1 Chloride Level 102 Carbon Dioxide Level 26 Anion Gap 7 Blood Urea Nitrogen 14 Creatinine 0.78 Est Glomerular Filtrat Rate mL/min > 60 Glucose Level 88 Calcium Level 8.8 Total Bilirubin 0.3 Direct Bilirubin 0.00 Indirect Bilirubin 0.3 Aspartate Amino Transf (AST/SGOT) 29 Alanine Aminotransferase (ALT/SGPT) 18 Alkaline Phosphatase 95 Total Protein 7.5 Albumin 3.2 L Globulin 4.30 H Albumin/Globulin Ratio 0.74 Medications Medication Current Medications Ondansetron HCl (Zofran Inj) 4 mg Q6H PRN IV NAUSEA AND/OR VOMITING Last administered on 12/11/18at 17:52; Admin Dose 4 MG; Start 11/30/18 at 21:00 Acetaminophen (Tylenol Liquid) 650 mg Q6H PRN PO PAIN LEVEL 1-3 OR FEVER Last administered on 12/14/18at 01:51; Admin Dose 650 MG; Start 11/30/18 at 21:00 Emtricitabine/ Tenofovir (Truvada) 1 tab DAILY PO Last administered on 12/26/18 09:25; Admin Dose 1 TAB; Start 12/06/18 at 09:00 Sodium Hypochlorite (Dakins Diluted (40)) 1 applic DAILY TP Last administered on 12/25/18 08:32; Admin Dose 1 APPLIC; Start 12/06/18 at 09:00 Prednisolone Acetate (Pred-Forte 1%) 1 drop DAILY LEFT EYE Last administered on 12/26/18 09:26; Admin Dose 1 DROP; Start 12/05/18 at 19:00 Atropine Sulfate (Atropine 1% Oph) 1 drop BID LEFT EYE Last administered on 12/26/18 09:26; Admin Dose 1 DROP; Start 12/07/18 at 21:00 Guaifenesin (Robitussin Liquid Cup) 100 mg Q4H PRN PO COUGH Last administered on 12/05/18 20:07; Admin Dose 100 MG; Start 12/05/18 at 19:00 Lactulose (Enulose) 20 gm DAILY PRN PO CONSTIPATION Last administered on 12/07/18 17:07; Admin Dose 20 GM; Start 12/07/18 at 16:00 Miscellaneous Information (Pending [facility] Order For Wound Care) 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 PRN XX WOUND CARE; Start 12/08/18 at 02:30 Multivitamins/ Minerals (Theragran-M) 1 tab DAILY PO Last administered on 12/26/18 09:25; Admin Dose 1 TAB; Start 12/09/18 at 09:00 Ascorbic Acid (Vitamin C) 500 mg BID PO Last administered on 12/26/18 09:25; Admin Dose 500 MG; Start 12/09/18 at 09:00 Zinc Sulfate (Zinc Sulfate) 220 mg DAILY PO Last administered on 12/26/18 09:25; Admin Dose 220 MG; Start 12/09/18 at 09:00 Ibuprofen (Motrin) 400 mg Q6H PRN PO MILD PAIN(1-3) OR TEMP>38C Last administe red on 12/12/18 08:39; Admin Dose 400 MG; Start 12/10/18 at 21:00 Trimethoprim/ Sulfamethoxazole (Bactrim (Ds)) 1 tab DAILY PO Last administered on 12/26/18 09:25; Admin Dose 1 TAB; Start 12/12/18 at 12:00 Alteplase, Recombinant (Cathflo (Activase)) 2 mg MAY REPEAT X1 PRN CATHETER IF CATHETER REMAINS OCCULUDED Last administered on 12/12/18 18:04; Admin Dose 2 MG; Start 12/12/18 at 14:30 Acetaminophen/ Hydrocodone Bitart ([place] (5/325)) 1 tab Q4H PRN PO MODERATE PAIN LEVEL 4-6 Last administered on 12/26/18 05:37; Admin Dose 1 TAB; Start 12/12/18 at 15:00 Fluconazole (Diflucan) 100 mg DAILY PO Last administered on 12/26/18 09:25; Admin Dose 100 MG; Start 12/13/18 at 11:30 Morphine Sulfate (morphine) 4 mg DAILY PRN IV SEVERE PAIN LEVEL 7-10 Last administered on 12/20/18 11:59; Admin Dose 4 MG; Start 12/16/18 at 15:30 Zidovudine (Retrovir) 300 mg BID PO Last administered on 12/26/18 09:25; Admin Dose 300 MG; Start 12/21/18 at 21:00 Calcium Carbonate (Tums) 500 mg Q6H PRN PO DISTENSION/GAS/BLOATING Last administered on 12/24/18 06:29; Admin Dose 500 MG; Start 12/23/18 at 13:00 Lactobacillus Acidophilus/ Rhamnosus (Culturelle) 1 cap BID PO Last administered on 12/26/18 09:25; Admin Dose 1 CAP; Start 12/26/18 at 09:00 Metronidazole (Flagyl) 500 mg Q8 PO Last administered on 12/26/18 05:37; Admin Dose 500 MG; Start 12/25/18 at 12:00 Famotidine (Pepcid) 20 mg DAILY PO Last administered on 12/26/18 09:25; Admin Dose 20 MG; Start 12/26/18 at 09:00 Morphine Sulfate (morphine) 1 mg Q4H PRN IV MOD TO SEVERE PAIN; Start 12/26/18 at 14:30 TYE PETIT Dec 26, 2018 14:41
--- NOTE | 2018-12-26 15:17 | CONS ---
Assessment/Plan Assessment/Plan Hospital Course (Demo Recall) Alert, feels good, looks comfortable, no fevers, no diarrhea Indwelling: PIV Microbiology: Wound culture grew MRSA, repeat cx + Kleb, E coli, MRSA Antimicrobials: Truvada, Retrovir, Diflucan, Bactrim Physical examination: Well-developed well-nourished middle-aged man who is alert in no distress. Head atraumatic normocephalic sclera nonicteric neck is supple chest rise symmetrical breath sounds clear heart: S1-S2 abdomen soft bowel sounds present extremities without cyanosis. Skin: Patient has dressing over his left side of the abdomen and bilateral wound vacs to hips Assessment: 1. S/p ongoing fevers==> resolved after PICC dc'd 2. Fornier's gangrene and necrotizing fasciitis, status post multiple recurrent debridement ==> latest one on 12/08/18 by urology 3. AIDS===> CD4 12/13 143 4. Status post renal failure Plan: Remains stable, continue BAEZ and proph Rx, wound care per surgery and urology Consultation Date/Type/Reason Admit Date/Time Nov 30, 2018 at 20:47 Initial Consult Date 12/02/18 Type of Consult id Requesting Provider: ROBIN TAVAREZ MD Date/Time of Note DATE: 12/26/18 TIME: 15:16 Exam/Review of Systems Exam Vitals Vital Signs Date Temp Pulse Resp B/P (MAP) Pulse Ox O2 O2 Flow FiO2 Time Delivery Rate 12/26/18 97.8 80 18 90/55 (67) 98 14:05 12/25/18 Room Air 20:00 Intake and Output 12/25/18 12/25/18 12/26/18 1515:00 23:00 07:00 IntakeIntake Total 820 ml 400 ml 120 ml OutputOutput Total 1000 ml 1210 ml 500 ml BalanceBalance -180 ml -810 ml -380 ml Results Result Diagram: 12/26/18 1125 12/26/18 0530 Results 24hrs Laboratory Tests Test 12/26/18 05:30 12/26/18 11:25 White Blood Count 3.7 L Red Blood Count 2.64 L Hemoglobin 7.3 L 7.2 L Hematocrit 22.2 L 22.3 L Mean Corpuscular Volume 84.1 Mean Corpuscular Hemoglobin 27.7 L Mean Corpuscular Hemoglobin Concent 32.9 Red Cell Distribution Width 15.8 H Platelet Count 644 #H Mean Platelet Volume 9.0 Immature Granulocytes % 0.300 Neutrophils % 57.5 Segmented Neutrophils % (Manual) 52 Band Neutrophils % (Manual) 6 H Lymphocytes % 28.8 Lymphocytes % (Manual) 32 Monocytes % 10.6 Monocytes % (Manual) 8 Eosinophils % 1.4 Basophils % 1.4 Basophils % (Manual) 2 Nucleated Red Blood Cells % 0.0 Immature Granulocytes # 0.010 Neutrophils # 2.1 Neutrophils # (Manual) 1.9 Band Neutrophils # 0.2 Lymphocytes (Manual) 1.1 Lymphocytes # 1.1 Monocytes # 0.4 Monocytes # (Manual) 0.2 L Eosinophils # 0.1 Basophils # 0.1 Basophils # (Manual) 0.0 Nucleated Red Blood Cells # 0.0 Platelet Estimate INCREASED Giant Platelets 1 H Polychromasia 1+ Anisocytosis 1+ Microcytosis 1+ Sodium Level 135 Potassium Level 4.1 Chloride Level 102 Carbon Dioxide Level 26 Anion Gap 7 Blood Urea Nitrogen 14 Creatinine 0.78 Est Glomerular Filtrat Rate mL/min > 60 Glucose Level 88 Calcium Level 8.8 Total Bilirubin 0.3 Direct Bilirubin 0.00 Indirect Bilirubin 0.3 Aspartate Amino Transf (AST/SGOT) 29 Alanine Aminotransferase (ALT/SGPT) 18 Alkaline Phosphatase 95 Total Protein 7.5 Albumin 3.2 L Globulin 4.30 H Albumin/Globulin Ratio 0.74 Medications Medication Current Medications Ondansetron HCl (Zofran Inj) 4 mg Q6H PRN IV NAUSEA AND/OR VOMITING Last administered on 12/11/18at 17:52; Admin Dose 4 MG; Start 11/30/18 at 21:00 Acetaminophen (Tylenol Liquid) 650 mg Q6H PRN PO PAIN LEVEL 1-3 OR FEVER Last administered on 12/14/18 01:51; Admin Dose 650 MG; Start 11/30/18 at 21:00 Emtricitabine/ Tenofovir (Truvada) 1 tab DAILY PO Last administered on 12/26/18 09:25; Admin Dose 1 TAB; Start 12/06/18 at 09:00 Sodium Hypochlorite (Dakins Diluted ()) 1 applic DAILY TP Last administered on 12/26/18at 14:37; Admin Dose 1 APPLIC; Start 12/06/18 at 09:00 Prednisolone Acetate (Pred-Forte 1%) 1 drop DAILY LEFT EYE Last administered on 12/26/18 09:26; Admin Dose 1 DROP; Start 12/05/18 at 19:00 Atropine Sulfate (Atropine 1% Oph) 1 drop BID LEFT EYE Last administered on 12/26/18 09:26; Admin Dose 1 DROP; Start 12/07/18 at 21:00 Guaifenesin (Robitussin Liquid Cup) 100 mg Q4H PRN PO COUGH Last administered on 12/05/18 20:07; Admin Dose 100 MG; Start 12/05/18 at 19:00 Lactulose (Enulose) 20 gm DAILY PRN PO CONSTIPATION Last administered on 12/07/18 17:07; Admin Dose 20 GM; Start 12/07/18 at 16:00 Miscellaneous Information (Pending [facility] Order For Wound Care) 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 PRN XX WOUND CARE; Start 12/08/18 at 02:30 Multivitamins/ Minerals (Theragran-M) 1 tab DAILY PO Last administered on 12/26/18 09:25; Admin Dose 1 TAB; Start 12/09/18 at 09:00 Ascorbic Acid (Vitamin C) 500 mg BID PO Last administered on 12/26/18 09:25; Admin Dose 500 MG; Start 12/09/18 at 09:00 Zinc Sulfate (Zinc Sulfate) 220 mg DAILY PO Last administered on 12/26/18 09:25; Admin Dose 220 MG; Start 12/09/18 at 09:00 Ibuprofen (Motrin) 400 mg Q6H PRN PO MILD PAIN(1-3) OR TEMP>38C Last administered on 12/12/18 08:39; Admin Dose 400 MG; Start 12/10/18 at 21:00 Trimethoprim/ Sulfamethoxazole (Bactrim (Ds)) 1 tab DAILY PO Last administered on 12/26/18 09:25; Admin Dose 1 TAB; Start 12/12/18 at 12:00 Alteplase, Recombinant (Cathflo (Activase)) 2 mg MAY REPEAT X1 PRN CATHETER IF CATHETER REMAINS OCCULUDED Last administered on 12/12/18 18:04; Admin Dose 2 MG; Start 12/12/18 at 14:30 Acetaminophen/ Hydrocodone Bitart ([place] (5/325)) 1 tab Q4H PRN PO MODERATE PAIN LEVEL 4-6 Last administered on 12/26/18 05:37; Admin Dose 1 TAB; Start 12/12/18 at 15:00 Fluconazole (Diflucan) 100 mg DAILY PO Last administered on 12/26/18 09:25; Admin Dose 100 MG; Start 12/13/18 at 11:30 Morphine Sulfate (morphine) 4 mg DAILY PRN IV SEVERE PAIN LEVEL 7-10 Last administered on 12/20/18 11:59; Admin Dose 4 MG; Start 12/16/18 at 15:30 Zidovudine (Retrovir) 300 mg BID PO Last administered on 12/26/18 09:25; Admin Dose 300 MG; Start 12/21/18 at 21:00 Calcium Carbonate (Tums) 500 mg Q6H PRN PO DISTENSION/GAS/BLOATING Last administered on 12/24/18 06:29; Admin Dose 500 MG; Start 12/23/18 at 13:00 Lactobacillus Acidophilus/ Rhamnosus (Culturelle) 1 cap BID PO Last administer ed on 12/26/18 09:25; Admin Dose 1 CAP; Start 12/26/18 at 09:00 Metronidazole (Flagyl) 500 mg Q8 PO Last administered on 12/26/18 14:36; Admin Dose 500 MG; Start 12/25/18 at 12:00 Famotidine (Pepcid) 20 mg DAILY PO Last administered on 12/26/18 09:25; Admin Dose 20 MG; Start 12/26/18 at 09:00 Morphine Sulfate (morphine) 1 mg Q4H PRN IV MOD TO SEVERE PAIN; Start 12/26/18 at 14:30 CRYSTAL TALAVERA NP Dec 26, 2018 15:17
[2018-12-26] MEDS: morphine 2 MG INJ IV PRN (17:52)
[2018-12-26 20:00] VITALS: BP 101/67; PULSE 73; RESP 18
[2018-12-27 02:00] VITALS: BP 99/69; PULSE 77; RESP 19
[2018-12-27] MEDS: HYDROCODONE/APAP (5/325) TAB PO PRN ×2 (05:38→21:03)
[2018-12-27] MEDS: metroNIDAZOLE 500 MG TAB PO SCH (05:38)
[2018-12-27 08:00] VITALS: BP 103/64; PULSE 73; RESP 16
[2018-12-27] MEDS: ASCORBIC ACID 500 MG TAB PO SCH ×2 (08:41→20:57)
[2018-12-27] MEDS: LACTOBACILLUS RHAMNOSUS CAP PO SCH ×2 (08:41→20:57)
[2018-12-27] MEDS: TRIMETHOPRIM/SULFAMETHOX (DS) TAB PO SCH (08:41)
[2018-12-27] MEDS: ZIDOVUDINE 300 MG TAB PO SCH ×2 (08:41→20:57)
[2018-12-27] MEDS: EMTRICITABINE/TENOFOVIR TAB PO SCH (08:41)
[2018-12-27] MEDS: FAMOTIDINE 20 MG TAB PO SCH (08:41)
[2018-12-27] MEDS: FLUCONAZOLE 100 MG TAB PO SCH (08:41)
[2018-12-27] MEDS: MULTIVITAMINS/MINERALS TAB PO SCH (08:41)
[2018-12-27] MEDS: ZINC SULFATE 220 MG CAP PO SCH (08:41)
[2018-12-27] MEDS: PREDNISOLONE ACET 1% 5 ML OPH LEFT EYE SCH (08:42)
[2018-12-27] MEDS: ATROPINE 1% 5 ML OPH LEFT EYE SCH ×2 (08:42→20:57)
[2018-12-27] MEDS: DAKINS 0.0125%(1/40) 473 ML SOLUTION TP SCH (08:43)
--- NOTE | 2018-12-27 13:34 | CONS ---
Assessment/Plan Assessment/Plan Hospital Course (Demo Recall) Alert, feels good Indwelling: PIV Microbiology: Wound culture grew MRSA, repeat cx + Kleb, E coli, MRSA Antimicrobials: Truvada, Retrovir, Diflucan, Bactrim Physical examination: Well-developed well-nourished middle-aged man who is alert in no distress. Head atraumatic normocephalic sclera nonicteric neck is supple chest rise symmetrical breath sounds clear heart: S1-S2 abdomen soft bowel sounds present extremities without cyanosis. Skin: Patient has dressing over his left side of the abdomen and bilateral wound vacs to hips Assessment: 1. S/p ongoing fevers==> resolved after PICC dc'd 2. Fornier's gangrene and necrotizing fasciitis, status post multiple recurrent debridement ==> latest one on 12/08/18 by urology 3. AIDS===> CD4 12/13 143 4. Status post renal failure Plan: Remains stable, continue BAEZ and proph Rx, wound care per surgery and urology Consultation Date/Type/Reason Admit Date/Time Nov 30, 2018 at 20:47 Initial Consult Date 12/02/18 Type of Consult id Requesting Provider: ROBIN TAVAREZ MD Date/Time of Note DATE: 12/27/18 TIME: 13:33 Exam/Review of Systems Exam Vitals Vital Signs Date Temp Pulse Resp B/P (MAP) Pulse Ox O2 O2 Flow FiO2 Time Delivery Rate 12/27/18 98.2 73 16 103/64 98 08:00 (77) 12/25/18 Room Air 20:00 Intake and Output 12/26/18 12/26/18 12/27/18 1515:00 23:00 07:00 IntakeIntake Total 480 ml 240 ml OutputOutput Total 600 ml 310 ml 400 ml BalanceBalance -120 ml -70 ml -400 ml Results Result Diagram: 12/27/18 0554 12/27/18 0554 Results 24hrs Laboratory Tests Test 12/27/18 05:54 12/27/18 07:09 12/27/18 09:15 White Blood Count 4.5 #L Red Blood Count 3.06 L Hemoglobin 8.7 #L Hematocrit 26.0 L Mean Corpuscular Volume 85.0 Mean Corpuscular Hemoglobin 28.4 L Mean Corpuscular 33.5 Hemoglobin Concent Red Cell Distribution Width 15.9 H Platelet Count 593 H Mean Platelet Volume 9.0 Immature Granulocytes % 0.400 Neutrophils % 67.1 Lymphocytes % 22.5 Monocytes % 8.4 Eosinophils % 0.7 Basophils % 0.9 Nucleated Red Blood Cells % 0.0 Immature Granulocytes # 0.020 Neutrophils # 3.1 Lymphocytes # 1.0 Monocytes # 0.4 Eosinophils # 0.0 Basophils # 0.0 Nucleated Red Blood Cells # 0.0 Sodium Level 135 Potassium Level 4.2 Chloride Level 103 Carbon Dioxide Level 25 Anion Gap 7 Blood Urea Nitrogen 14 Creatinine 0.73 Est Glomerular Filtrat > 60 Rate mL/min Glucose Level 95 Calcium Level 8.9 Phosphorus Level 5.0 H Magnesium Level 1.8 Total Bilirubin 0.3 Direct Bilirubin 0.00 Indirect Bilirubin 0.3 Aspartate Amino 29 Transf (AST/SGOT) Alanine 18 Aminotransferase (ALT/SGPT) Alkaline Phosphatase 93 Total Protein 6.9 Albumin 3.0 L Hepatitis B Surface Antigen NEGATIVE Hepatitis B Core Total Antibody REACTIVE H Hepatitis C Antibody NEGATIVE Lab Scanned Report BLOOD TRANSFUSION Stool Occult Blood NEGATIVE Medications Medication Current Medications Ondansetron HCl (Zofran Inj) 4 mg Q6H PRN IV NAUSEA AND/OR VOMITING Last administered on 12/11/18 17:52; Admin Dose 4 MG; Start 11/30/18 at 21:00 Acetaminophen (Tylenol Liquid) 650 mg Q6H PRN PO PAIN LEVEL 1-3 OR FEVER Last administered on 12/14/18 01:51; Admin Dose 650 MG; Start 11/30/18 at 21:00 Emtricitabine/ Tenofovir (Truvada) 1 tab DAILY PO Last administered on 12/27/18 08:41; Admin Dose 1 TAB; Start 12/06/18 at 09:00 Sodium Hypochlorite (Dakins Diluted (40)) 1 applic DAILY TP Last administered on 12/26/18 14:37; Admin Dose 1 APPLIC; Start 12/06/18 at 09:00 Prednisolone Acetate (Pred-Forte 1%) 1 drop DAILY LEFT EYE Last administered on 12/27/18 08:42; Admin Dose 1 DROP; Start 12/05/18 at 19:00 Atropine Sulfate (Atropine 1% Oph) 1 drop BID LEFT EYE Last administered on 12/27/18 08:42; Admin Dose 1 DROP; Start 12/07/18 at 21:00 Guaifenesin (Robitussin Liquid Cup) 100 mg Q4H PRN PO COUGH Last administered on 12/05/18 20:07; Admin Dose 100 MG; Start 12/05/18 at 19:00 Lactulose (Enulose) 20 gm DAILY PRN PO CONSTIPATION Last administered on 12/07/18 17:07; Admin Dose 20 GM; Start 12/07/18 at 16:00 Miscellaneous [facility] 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 PRN XX WOUND CARE; Start 12/08/18 at 02:30 Multivitamins/ Minerals (Theragran-M) 1 tab DAILY PO Last administered on 12/27/18 08:41; Admin Dose 1 TAB; Start 12/09/18 at 09:00 Ascorbic Acid (Vitamin C) 500 mg BID PO Last administered on 12/27/18 08:41; Admin Dose 500 MG; Start 12/09/18 at 09:00 Zinc Sulfate (Zinc Sulfate) 220 mg DAILY PO Last administered on 12/27/18 08:41; Admin Dose 220 MG; Start 12/09/18 at 09:00 Ibuprofen (Motrin) 400 mg Q6H PRN PO MILD PAIN(1-3) OR TEMP>38C Last administered on 12/12/18 08:39; Admin Dose 400 MG; Start 12/10/18 at 21:00 Trimethoprim/ Sulfamethoxazole (Bactrim (Ds)) 1 tab DAILY PO Last administered on 12/27/18 08:41; Admin Dose 1 TAB; Start 12/12/18 at 12:00 Alteplase, Recombinant (Cathflo (Activase)) 2 mg MAY REPEAT X1 PRN CATHETER IF CATHETER REMAINS OCCULUDED Last administered on 12/12/18 18:04; Admin Dose 2 MG; Start 12/12/18 at 14:30 Acetaminophen/ Hydrocodone Bitart ([place] (5/325)) 1 tab Q4H PRN PO MODERATE PAIN LEVEL 4-6 Last administered on 12/27/18 05:38; Admin Dose 1 TAB; Start 12/12/18 at 15:00 Fluconazole (Diflucan) 100 mg DAILY PO Last administered on 12/27/18 08:41; Admin Dose 100 MG; Start 12/13/18 at 11:30 Morphine Sulfate (morphine) 4 mg DAILY PRN IV SEVERE PAIN LEVEL 7-10 Last administered on 12/20/18 11:59; Admin Dose 4 MG; Start 12/16/18 at 15:30 Zidovudine (Retrovir) 300 mg BID PO Last administered on 12/27/18 08:41; Admin Dose 300 MG; Start 12/21/18 at 21:00 Calcium Carbonate (Tums) 500 mg Q6H PRN PO DISTENSION/GAS/BLOATING Last administered on 12/24/18 06:29; Admin Dose 500 MG; Start 12/23/18 at 13:00 Lactobacillus Acidophilus/ Rhamnosus (Culturelle) 1 cap BID PO Last administered on 12/27/18 08:41; Admin Dose 1 CAP; Start 12/26/18 at 09:00 Famotidine (Pepcid) 20 mg DAILY PO Last administered on 12/27/18 08:41; Admin Dose 20 MG; Start 12/26/18 at 09:00 Morphine Sulfate (morphine) 1 mg Q4H PRN IV MOD TO SEVERE PAIN Last administered on 12/26/18 17:52; Admin Dose 1 MG; Start 12/26/18 at 14:30 CRYSTAL TALAVERA NP Dec 27, 2018 13:34
--- NOTE | 2018-12-27 13:46 | PN ---
Date/Time of Note Date/Time of Note DATE: 12/27/18 TIME: 13:41 Assessment/Plan VTE Prophylaxis Risk score (from Nsg)>0 risk: 3 SCD applied (from Nsg): Yes Pharmacological prophylaxis: other Lines/Catheters IV Catheter Type (from Nrsg): Saline Lock Urinary Cath still in place: No Assessment/Plan Hospital Course S: Patient seen by wound care nurse and infectious disease team today. Wound VAC removed earlier today. No acute events overnight. O: vs - see below PE: Gen: Lying in bed, family at bedside, answering questions appropriately HEENT: PERRL, EOMI Neck: Supple, no pallor CV: reg Res: ctab GI: bs+ nt nd no r r g; dressed wounds M/S: no edema A/P: 43-year-old male who presented with: # Nida gangrene: sp multiple debridements this admission, the last one occurred on December 08, 2018. Again wound vacs were in place until today. Still waiting plastic surgery consult, although this is proving difficult to obtain as there was an attempt earlier to transfer to tertiary center for skin grafting. However [facility], [facility], [facility], and now [facility] per case management have all refused; I also spoke with Dr. Petit plastic surgeon yesterday and at this time he is also refusing to see patient. -For now continue wound care per wound nurse consult and recommendations including wound VAC -Continue current antibiotics per ID recommendations and pain control medications -Again, trying other options for transfer to tertiary center for plastic boris jenny harper and consult, have also discussed the case with [facility] management team to see about recruiting another plastic surgeon to come here and see the patient while hospitalized here at [facility] during this hospitalization. # HIV: Diagnosed on this admission, last CD4 count 224 on December 03, 2018 -Continue on HAART on therapy, follow-up ID recommendations # Hepatitis B? 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 -Observe for now, if reoccurs, consider ruling out for C. difficile at that time Result Diagram: 12/27/18 0554 12/27/18 0554 Results 24hrs Laboratory Tests Test 12/27/18 05:54 12/27/18 07:09 12/27/18 09:15 White Blood Count 4.5 #L Red Blood Count 3.06 L Hemoglobin 8.7 #L Hematocrit 26.0 L Mean Corpuscular Volume 85.0 Mean Corpuscular Hemoglobin 28.4 L Mean Corpuscular 33.5 Hemoglobin Concent Red Cell Distribution Width 15.9 H Platelet Count 593 H Mean Platelet Volume 9.0 Immature Granulocytes % 0.400 Neutrophils % 67.1 Lymphocytes % 22.5 Monocytes % 8.4 Eosinophils % 0.7 Basophils % 0.9 Nucleated Red Blood Cells % 0.0 Immature Granulocytes # 0.020 Neutrophils # 3.1 Lymphocytes # 1.0 Monocytes # 0.4 Eosinophils # 0.0 Basophils # 0.0 Nucleated Red Blood Cells # 0.0 Sodium Level 135 Potassium Level 4.2 Chloride Level 103 Carbon Dioxide Level 25 Anion Gap 7 Blood Urea Nitrogen 14 Creatinine 0.73 Est Glomerular Filtrat > 60 Rate mL/min Glucose Level 95 Calcium Level 8.9 Phosphorus Level 5.0 H Magnesium Level 1.8 Total Bilirubin 0.3 Direct Bilirubin 0.00 Indirect Bilirubin 0.3 Aspartate Amino 29 Transf (AST/SGOT) Alanine 18 Aminotransferase (ALT/SGPT) Alkaline Phosphatase 93 Total Protein 6.9 Albumin 3.0 L Hepatitis B Surface Antigen NEGATIVE Hepatitis B Core Total Antibody REACTIVE H Hepatitis C Antibody NEGATIVE Lab Scanned Report BLOOD TRANSFUSION Stool Occult Blood NEGATIVE Exam/Review of Systems Exam Vitals Vital Signs Date Temp Pulse Resp B/P (MAP) Pulse Ox O2 O2 Flow FiO2 Time Delivery Rate 12/27/18 98.2 73 16 103/64 98 08:00 (77) 12/25/18 Room Air 20:00 Intake and Output 12/26/18 12/26/18 12/27/18 1515:00 23:00 07:00 IntakeIntake Total 480 ml 240 ml OutputOutput Total 600 ml 310 ml 400 ml BalanceBalance -120 ml -70 ml -400 ml Results Results 24hrs Laboratory Tests Test 12/27/18 05:54 12/27/18 07:09 12/27/18 09:15 White Blood Count 4.5 #L Red Blood Count 3.06 L Hemoglobin 8.7 #L Hematocrit 26.0 L Mean Corpuscular Volume 85.0 Mean Corpuscular Hemoglobin 28.4 L Mean Corpuscular 33.5 Hemoglobin Concent Red Cell Distribution Width 15.9 H Platelet Count 593 H Mean Platelet Volume 9.0 Immature Granulocytes % 0.400 Neutrophils % 67.1 Lymphocytes % 22.5 Monocytes % 8.4 Eosinophils % 0.7 Basophils % 0.9 Nucleated Red Blood Cells % 0.0 Immature Granulocytes # 0.020 Neutrophils # 3.1 Lymphocytes # 1.0 Monocytes # 0.4 Eosinophils # 0.0 Basophils # 0.0 Nucleated Red Blood Cells # 0.0 Sodium Level 135 Potassium Level 4.2 Chloride Level 103 Carbon Dioxide Level 25 Anion Gap 7 Blood Urea Nitrogen 14 Creatinine 0.73 Est Glomerular Filtrat > 60 Rate mL/min Glucose Level 95 Calcium Level 8.9 Phosphorus Level 5.0 H Magnesium Level 1.8 Total Bilirubin 0.3 Direct Bilirubin 0.00 Indirect Bilirubin 0.3 Aspartate Amino 29 Transf (AST/SGOT) Alanine 18 Aminotransferase (ALT/SGPT) Alkaline Phosphatase 93 Total Protein 6.9 Albumin 3.0 L Hepatitis B Surface Antigen NEGATIVE Hepatitis B Core Total Antibody REACTIVE H Hepatitis C Antibody NEGATIVE Lab Scanned Report BLOOD TRANSFUSION Stool Occult Blood NEGATIVE Medications Medication Current Medications Ondansetron HCl (Zofran Inj) 4 mg Q6H PRN IV NAUSEA AND/OR VOMITING Last administered on 12/11/18at 17:52; Admin Dose 4 MG; Start 11/30/18 at 21:00 Acetaminophen (Tylenol Liquid) 650 mg Q6H PRN PO PAIN LEVEL 1-3 OR FEVER Last administered on 12/14/18at 01:51; Admin Dose 650 MG; Start 11/30/18 at 21:00 Emtricitabine/ Tenofovir (Truvada) 1 tab DAILY PO Last administered on 12/27/18 08:41; Admin Dose 1 TAB; Start 12/06/18 at 09:00 Sodium Hypochlorite (Dakins Diluted ()) 1 applic DAILY TP Last administered on 12/26/18 14:37; Admin Dose 1 APPLIC; Start 12/06/18 at 09:00 Prednisolone Acetate (Pred-Forte 1%) 1 drop DAILY LEFT EYE Last administered on 12/27/18 08:42; Admin Dose 1 DROP; Start 12/05/18 at 19:00 Atropine Sulfate (Atropine 1% Oph) 1 drop BID LEFT EYE Last administered on 12/27/18 08:42; Admin Dose 1 DROP; Start 12/07/18 at 21:00 Guaifenesin (Robitussin Liquid Cup) 100 mg Q4H PRN PO COUGH Last administered on 12/05/18 20:07; Admin Dose 100 MG; Start 12/05/18 at 19:00 Lactulose (Enulose) 20 gm DAILY PRN PO CONSTIPATION Last administered on 12/07/18 17:07; Admin Dose 20 GM; Start 12/07/18 at 16:00 Miscellaneous Information (Pending [facility] Order For Wound Care) 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 PRN XX WOUND CARE; Start 12/08/18 at 02:30 Multivitamins/ Minerals (Theragran-M) 1 tab DAILY PO Last administered on 12/27/18 08:41; Admin Dose 1 TAB; Start 12/09/18 at 09:00 Ascorbic Acid (Vitamin C) 500 mg BID PO Last administered on 12/27/18 08:41; Admin Dose 500 MG; Start 12/09/18 at 09:00 Zinc Sulfate (Zinc Sulfate) 220 mg DAILY PO Last administered on 12/27/18 08:41; Admin Dose 220 MG; Start 12/09/18 at 09:00 Ibuprofen (Motrin) 400 mg Q6H PRN PO MILD PAIN(1-3) OR TEMP>38C Last adm inistered on 12/12/18 08:39; Admin Dose 400 MG; Start 12/10/18 at 21:00 Trimethoprim/ Sulfamethoxazole (Bactrim (Ds)) 1 tab DAILY PO Last administered on 12/27/18 08:41; Admin Dose 1 TAB; Start 12/12/18 at 12:00 Alteplase, Recombinant (Cathflo (Activase)) 2 mg MAY REPEAT X1 PRN CATHETER IF CATHETER REMAINS OCCULUDED Last administered on 12/12/18 18:04; Admin Dose 2 MG; Start 12/12/18 at 14:30 Acetaminophen/ Hydrocodone Bitart ([place] (5/325)) 1 tab Q4H PRN PO MODERATE PAIN LEVEL 4-6 Last administered on 12/27/18 05:38; Admin Dose 1 TAB; Start 12/12/18 at 15:00 Fluconazole (Diflucan) 100 mg DAILY PO Last administered on 12/27/18 08:41; Admin Dose 100 MG; Start 12/13/18 at 11:30 Morphine Sulfate (morphine) 4 mg DAILY PRN IV SEVERE PAIN LEVEL 7-10 Last administered on 12/20/18 11:59; Admin Dose 4 MG; Start 12/16/18 at 15:30 Zidovudine (Retrovir) 300 mg BID PO Last administered on 12/27/18 08:41; Admin Dose 300 MG; Start 12/21/18 at 21:00 Calcium Carbonate (Tums) 500 mg Q6H PRN PO DISTENSION/GAS/BLOATING Last administered on 12/24/18 06:29; Admin Dose 500 MG; Start 12/23/18 at 13:00 Lactobacillus Acidophilus/ Rhamnosus (Culturelle) 1 cap BID PO Last administered on 12/27/18 08:41; Admin Dose 1 CAP; Start 12/26/18 at 09:00 Famotidine (Pepcid) 20 mg DAILY PO Last administered on 12/27/18 08:41; Admin Dose 20 MG; Start 12/26/18 at 09:00 Morphine Sulfate (morphine) 1 mg Q4H PRN IV MOD TO SEVERE PAIN Last administered on 12/26/18 17:52; Admin Dose 1 MG; Start 12/26/18 at 14:30 TYE PETIT Dec 27, 2018 13:46
[2018-12-27 14:50] VITALS: BP 105/69; PULSE 96; RESP 18
[2018-12-27 20:27] VITALS: BP 113/75; PULSE 95; RESP 20
[2018-12-28 01:34] VITALS: BP 93/60; PULSE 80; RESP 20
[2018-12-28 08:26] VITALS: BP 99/61; PULSE 87; RESP 16
[2018-12-28] MEDS: EMTRICITABINE/TENOFOVIR TAB PO SCH ×2 (09:00→10:49)
[2018-12-28] MEDS: FLUCONAZOLE 100 MG TAB PO SCH (09:11)
[2018-12-28] MEDS: ZINC SULFATE 220 MG CAP PO SCH (09:11)
[2018-12-28] MEDS: ZIDOVUDINE 300 MG TAB PO SCH ×2 (09:11→19:59)
[2018-12-28] MEDS: LACTOBACILLUS RHAMNOSUS CAP PO SCH ×2 (09:11→19:59)
[2018-12-28] MEDS: MULTIVITAMINS/MINERALS TAB PO SCH (09:11)
[2018-12-28] MEDS: ASCORBIC ACID 500 MG TAB PO SCH ×2 (09:11→19:59)
[2018-12-28] MEDS: FAMOTIDINE 20 MG TAB PO SCH (09:11)
[2018-12-28] MEDS: TRIMETHOPRIM/SULFAMETHOX (DS) TAB PO SCH (09:11)
[2018-12-28] MEDS: PREDNISOLONE ACET 1% 5 ML OPH LEFT EYE SCH (09:52)
[2018-12-28] MEDS: ATROPINE 1% 5 ML OPH LEFT EYE SCH ×2 (09:52→19:59)
[2018-12-28] MEDS: DAKINS 0.0125%(1/40) 473 ML SOLUTION TP SCH (09:54)
--- NOTE | 2018-12-28 13:27 | CONS ---
Assessment/Plan Assessment/Plan Hospital Course (Demo Recall) Sleeping, looks comfortable, no fevers overnight Microbiology: Wound culture grew MRSA, repeat cx + Kleb, E coli, MRSA Antimicrobials: Truvada, Retrovir, Diflucan, Bactrim Physical examination: Well-developed well-nourished middle-aged man who is alert in no distress. Head atraumatic normocephalic sclera nonicteric neck is supple chest rise symmetrical breath sounds clear heart: S1-S2 abdomen soft bowel sounds present extremities without cyanosis. Skin: Patient has dressing over his left side of the abdomen and bilateral wound vacs to hips Assessment: 1. S/p ongoing fevers==> resolved after PICC dc'd 2. Fornier's gangrene and necrotizing fasciitis, status post multiple recurrent debridement ==> latest one on 12/08/18 by urology 3. AIDS===> CD4 12/13 143 4. Status post renal failure Plan: Remains stable, continue BAEZ and proph Rx, wound care per surgery and ur ology Consultation Date/Type/Reason Admit Date/Time Nov 30, 2018 at 20:47 Initial Consult Date 12/02/18 Type of Consult id Requesting Provider: ROBIN TAVAREZ MD Date/Time of Note DATE: 12/28/18 TIME: 13:26 Exam/Review of Systems Exam Vitals Vital Signs Date Temp Pulse Resp B/P (MAP) Pulse Ox O2 O2 Flow FiO2 Time Delivery Rate 12/28/18 98.2 87 16 99/61 (74) 100 08:26 12/25/18 Room Air 20:00 Intake and Output 12/27/18 12/27/18 12/28/18 1515:00 23:00 07:00 IntakeIntake Total 760 ml OutputOutput Total 300 ml BalanceBalance -300 ml 760 ml Results Result Diagram: 12/28/18 0458 12/28/18 0458 Results 24hrs Laboratory Tests Test 12/28/18 04:58 White Blood Count 4.5 L Red Blood Count 3.12 L Hemoglobin 8.8 L Hematocrit 27.0 L Mean Corpuscular Volume 86.5 Mean Corpuscular Hemoglobin 28.2 L Mean Corpuscular Hemoglobin Concent 32.6 Red Cell Distribution Width 16.8 H Platelet Count 600 H Mean Platelet Volume 9.0 Immature Granulocytes % 0.200 Neutrophils % 55.2 Lymphocytes % 29.0 Monocytes % 13.1 H Eosinophils % 0.7 Basophils % 1.8 Nucleated Red Blood Cells % 0.0 Immature Granulocytes # 0.010 Neutrophils # 2.5 Lymphocytes # 1.3 Monocytes # 0.6 Eosinophils # 0.0 Basophils # 0.1 Nucleated Red Blood Cells # 0.0 Sodium Level 137 Potassium Level 4.6 Chloride Level 103 Carbon Dioxide Level 28 Anion Gap 6 Blood Urea Nitrogen 19 Creatinine 0.87 Est Glomerular Filtrat Rate mL/min > 60 Glucose Level 95 Calcium Level 8.7 Phosphorus Level 5.3 H Magnesium Level 1.8 Medications Medication Current Medications Ondansetron HCl (Zofran Inj) 4 mg Q6H PRN IV NAUSEA AND/OR VOMITING Last administered on 12/11/18 17:52; Admin Dose 4 MG; Start 11/30/18 at 21:00 Acetaminophen (Tylenol Liquid) 650 mg Q6H PRN PO PAIN LEVEL 1-3 OR FEVER Last administered on 12/14/18 01:51; Admin Dose 650 MG; Start 11/30/18 at 21:00 Emtricitabine/ Tenofovir (Truvada) 1 tab DAILY PO Last administered on 12/28/18 10:49; Admin Dose 1 TAB; Start 12/06/18 at 09:00 Sodium Hypochlorite (Dakins Diluted (40)) 1 applic DAILY TP Last administered on 12/28/18 09:54; Admin Dose 1 APPLIC; Start 12/06/18 at 09:00 Prednisolone Acetate (Pred-Forte 1%) 1 drop DAILY LEFT EYE Last administered on 12/28/18 09:52; Admin Dose 1 DROP; Start 12/05/18 at 19:00 Atropine Sulfate (Atropine 1% Oph) 1 drop BID LEFT EYE Last administered on 12/28/18 09:52; Admin Dose 1 DROP; Start 12/07/18 at 21:00 Guaifenesin (Robitussin Liquid Cup) 100 mg Q4H PRN PO COUGH Last administered on 12/05/18 20:07; Admin Dose 100 MG; Start 12/05/18 at 19:00 Lactulose (Enulose) 20 gm DAILY PRN PO CONSTIPATION Last administered on 12/07/18 17:07; Admin Dose 20 GM; Start 12/07/18 at 16:00 Miscellaneous Information (Pending Santyl Order For Wound Care) 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 PRN XX WOUND CARE; Start 12/08/18 at 02:30 Multivitamins/ Minerals (Theragran-M) 1 tab DAILY PO Last administered on 12/28/18 09:11; Admin Dose 1 TAB; Start 12/09/18 at 09:00 Ascorbic Acid (Vitamin C) 500 mg BID PO Last administered on 12/28/18 09:11; Admin Dose 500 MG; Start 12/09/18 at 09:00 Zinc Sulfate (Zinc Sulfate) 220 mg DAILY PO Last administered on 12/28/18 09:11; Admin Dose 220 MG; Start 12/09/18 at 09:00 Ibuprofen (Motrin) 400 mg Q6H PRN PO MILD PAIN(1-3) OR TEMP>38C Last administered on 12/12/18 08:39; Admin Dose 400 MG; Start 12/10/18 at 21:00 Trimethoprim/ Sulfamethoxazole (Bactrim (Ds)) 1 tab DAILY PO Last administered on 12/28/18 09:11; Admin Dose 1 TAB; Start 12/12/18 at 12:00 Alteplase, Recombinant (Cathflo (Activase)) 2 mg MAY REPEAT X1 PRN CATHETER IF C ATHETER REMAINS OCCULUDED Last administered on 12/12/18 18:04; Admin Dose 2 MG; Start 12/12/18 at 14:30 Acetaminophen/ Hydrocodone Bitart ([place] (5/325)) 1 tab Q4H PRN PO MODERATE PAIN LEVEL 4-6 Last administered on 12/27/18 21:03; Admin Dose 1 TAB; Start 12/12/18 at 15:00 Fluconazole (Diflucan) 100 mg DAILY PO Last administered on 12/28/18 09:11; Admin Dose 100 MG; Start 12/13/18 at 11:30 Morphine Sulfate (morphine) 4 mg DAILY PRN IV SEVERE PAIN LEVEL 7-10 Last administered on 12/20/18 11:59; Admin Dose 4 MG; Start 12/16/18 at 15:30 Zidovudine (Retrovir) 300 mg BID PO Last administered on 12/28/18 09:11; Admin Dose 300 MG; Start 12/21/18 at 21:00 Calcium Carbonate (Tums) 500 mg Q6H PRN PO DISTENSION/GAS/BLOATING Last administered on 12/24/18 06:29; Admin Dose 500 MG; Start 12/23/18 at 13:00 Lactobacillus Acidophilus/ Rhamnosus (Culturelle) 1 cap BID PO Last administered on 12/28/18 09:11; Admin Dose 1 CAP; Start 12/26/18 at 09:00 Famotidine (Pepcid) 20 mg DAILY PO Last administered on 12/28/18 09:11; Admin Dose 20 MG; Start 12/26/18 at 09:00 Morphine Sulfate (morphine) 1 mg Q4H PRN IV MOD TO SEVERE PAIN Last administered on 12/26/18at 17:52; Admin Dose 1 MG; Start 12/26/18 at 14:30 CRYSTAL TALAVERA NP Dec 28, 2018 13:27
[2018-12-28 14:32] VITALS: BP 96/62; PULSE 82; RESP 16
[2018-12-28] MEDS: morphine 2 MG INJ IV PRN ×2 (15:30→19:58)
--- NOTE | 2018-12-28 16:34 | PN ---
Date/Time of Note Date/Time of Note DATE: 12/28/18 TIME: 16:32 Assessment/Plan VTE Prophylaxis Risk score (from Nsg)>0 risk: 2 SCD applied (from Nsg): Yes Pharmacological prophylaxis: other Lines/Catheters IV Catheter Type (from Nrsg): Peripheral IV Urinary Cath still in place: No Assessment/Plan Hospital Course S: Patient seen ID team today. No fevers overnight, tolerating diet. Wound VAC removed yesterday, still waiting for plastic surgeon to come evaluate the patient. O: vs - see below PE: Gen: Lying in bed, family at bedside, answering questions appropriately HEENT: PERRL, EOMI Neck: Supple, no pallor CV: reg Res: ctab GI: bs+ nt nd no r r g; dressed wounds M/S: no edema A/P: 43-year-old male who presented with: # Nida gangrene: sp multiple debridements this admission, the last one occurred on December 08, 2018. Again wound vacs were in place until today. Still waiting plastic surgery consult, although this is proving difficult to obtain as there was an attempt earlier to transfer to tertiary center for skin grafting. However [facility], [facility], [facility], and now [facility] per case management have all refused; we also spoke with Dr. Petit plastic surgeon 2 days ago and at this time he is also unable to see the patient at this time for what looks like possible insurance issues. -For now continue wound care per wound nurse consult and recommendations including wound VAC -Continue current antibiotics per ID recommendations and pain control medications -Again, trying other options for transfer to tertiary center for plastic surgery eval and consult, have also discussed the case with [facility] management team to see about recruiting another plastic surgeon to come perform procedure on this patient (likely skin graft) while hospitalized here at [facility] during this hospitalization. # HIV: Diagnosed on this admission, last CD4 count 224 on December 03, 2018 -Continue on HAART on therapy, follow-up ID recommendations # Hepatitis B? 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 -Observe for now, if reoccurs, consider ruling out for C. difficile at that time Result Diagram: 12/28/188 12/28/188 Results 24hrs Laboratory Tests Test 12/28/18 04:58 White Blood Count 4.5 L Red Blood Count 3.12 L Hemoglobin 8.8 L Hematocrit 27.0 L Mean Corpuscular Volume 86.5 Mean Corpuscular Hemoglobin 28.2 L Mean Corpuscular Hemoglobin Concent 32.6 Red Cell Distribution Width 16.8 H Platelet Count 600 H Mean Platelet Volume 9.0 Immature Granulocytes % 0.200 Neutrophils % 55.2 Lymphocytes % 29.0 Monocytes % 13.1 H Eosinophils % 0.7 Basophils % 1.8 Nucleated Red Blood Cells % 0.0 Immature Granulocytes # 0.010 Neutrophils # 2.5 Lymphocytes # 1.3 Monocytes # 0.6 Eosinophils # 0.0 Basophils # 0.1 Nucleated Red Blood Cells # 0.0 Sodium Level 137 Potassium Level 4.6 Chloride Level 103 Carbon Dioxide Level 28 Anion Gap 6 Blood Urea Nitrogen 19 Creatinine 0.87 Est Glomerular Filtrat Rate mL/min > 60 Glucose Level 95 Calcium Level 8.7 Phosphorus Level 5.3 H Magnesium Level 1.8 Exam/Review of Systems Exam Vitals Vital Signs Date Temp Pulse Resp B/P (MAP) Pulse Ox O2 O2 Flow FiO2 Time Delivery Rate 12/28/18 98.4 82 16 96/62 (73) 98 14:32 12/25/18 Room Air 20:00 Intake and Output 12/27/18 12/27/18 12/28/18 1515:00 23:00 07:00 IntakeIntake Total 760 ml OutputOutput Total 300 ml BalanceBalance -300 ml 760 ml Results Results 24hrs Laboratory Tests Test 12/28/18 04:58 White Blood Count 4.5 L Red Blood Count 3.12 L Hemoglobin 8.8 L Hematocrit 27.0 L Mean Corpuscular Volume 86.5 Mean Corpuscular Hemoglobin 28.2 L Mean Corpuscular Hemoglobin Concent 32.6 Red Cell Distribution Width 16.8 H Platelet Count 600 H Mean Platelet Volume 9.0 Immature Granulocytes % 0.200 Neutrophils % 55.2 Lymphocytes % 29.0 Monocytes % 13.1 H Eosinophils % 0.7 Basophils % 1.8 Nucleated Red Blood Cells % 0.0 Immature Granulocytes # 0.010 Neutrophils # 2.5 Lymphocytes # 1.3 Monocytes # 0.6 Eosinophils # 0.0 Basophils # 0.1 Nucleated Red Blood Cells # 0.0 Sodium Level 137 Potassium Level 4.6 Chloride Level 103 Carbon Dioxide Level 28 Anion Gap 6 Blood Urea Nitrogen 19 Creatinine 0.87 Est Glomerular Filtrat Rate mL/min > 60 Glucose Level 95 Calcium Level 8.7 Phosphorus Level 5.3 H Magnesium Level 1.8 Medications Medication Current Medications Ondansetron HCl (Zofran Inj) 4 mg Q6H PRN IV NAUSEA AND/OR VOMITING Last administered on 12/11/18 17:52; Admin Dose 4 MG; Start 11/30/18 at 21:00 Acetaminophen (Tylenol Liquid) 650 mg Q6H PRN PO PAIN LEVEL 1-3 OR FEVER Last administered on 12/14/18 01:51; Admin Dose 650 MG; Start 11/30/18 at 21:00 Emtricitabine/ Tenofovir (Truvada) 1 tab DAILY PO Last administered on 12/28/18 10:49; Admin Dose 1 TAB; Start 12/06/18 at 09:00 Sodium Hypochlorite (Dakins Diluted (1/40)) 1 applic DAILY TP Last administered on 12/28/18 09:54; Admin Dose 1 APPLIC; Start 12/06/18 at 09:00 Prednisolone Acetate (Pred-Forte 1%) 1 drop DAILY LEFT EYE Last administered on 12/28/18 09:52; Admin Dose 1 DROP; Start 12/05/18 at 19:00 Atropine Sulfate (Atropine 1% Oph) 1 drop BID LEFT EYE Last administered on 12/28/18 09:52; Admin Dose 1 DROP; Start 12/07/18 at 21:00 Guaifenesin (Robitussin Liquid Cup) 100 mg Q4H PRN PO COUGH Last administered on 12/05/18 20:07; Admin Dose 100 MG; Start 12/05/18 at 19:00 Lactulose (Enulose) 20 gm DAILY PRN PO CONSTIPATION Last administered on 12/07/18 17:07; Admin Dose 20 GM; Start 12/07/18 at 16:00 [facility] 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 PRN XX WOUND CARE; Start 12/08/18 at 02:30 Multivitamins/ Minerals (Theragran-M) 1 tab DAILY PO Last administered on 09:11; Admin Dose 1 TAB; Start 12/09/18 at 09:00 Ascorbic Acid (Vitamin C) 500 mg BID PO Last administered on 12/28/18 09:11; Admin Dose 500 MG; Start 12/09/18 at 09:00 Zinc Sulfate (Zinc Sulfate) 220 mg DAILY PO Last administered on 12/28/18 09:11; Admin Dose 220 MG; Start 12/09/18 at 09:00 Ibuprofen (Motrin) 400 mg Q6H PRN PO MILD PAIN(1-3) OR TEMP>38C Last administered on 12/12/18 08:39; Admin Dose 400 MG; Start 12/10/18 at 21:00 Trimethoprim/ Sulfamethoxazole (Bactrim (Ds)) 1 tab DAILY PO Last administered on 12/28/18 09:11; Admin Dose 1 TAB; Start 12/12/18 at 12:00 Alteplase, Recombinant (Cathflo (Activase)) 2 mg MAY REPEAT X1 PRN CATHETER IF CATHETER REMAINS OCCULUDED Last administered on 12/12/18 18:04; Admin Dose 2 MG; Start 12/12/18 at 14:30 Acetaminophen/ Hydrocodone Bitart ([place] (5/325)) 1 tab Q4H PRN PO MODERATE PAIN LEVEL 4-6 Last administered on 12/27/18 21:03; Admin Dose 1 TAB; Start 12/12/18 at 15:00 Fluconazole (Diflucan) 100 mg DAILY PO Last administered on 12/28/18 09:11; Admin Dose 100 MG; Start 12/13/18 at 11:30 Morphine Sulfate (morphine) 4 mg DAILY PRN IV SEVERE PAIN LEVEL 7-10 Last administered on 12/20/18 11:59; Admin Dose 4 MG; Start 12/16/18 at 15:30 Zidovudine (Retrovir) 300 mg BID PO Last administered on 12/28/18 09:11; Admin Dose 300 MG; Start 12/21/18 at 21:00 Calcium Carbonate (Tums) 500 mg Q6H PRN PO DISTENSION/GAS/BLOATING Last administered on 12/24/18 06:29; Admin Dose 500 MG; Start 12/23/18 at 13:00 Lactobacillus Acidophilus/ Rhamnosus (Culturelle) 1 cap BID PO Last administered on 12/28/18 09:11; Admin Dose 1 CAP; Start 12/26/18 at 09:00 Famotidine (Pepcid) 20 mg DAILY PO Last administered on 12/28/18 09:11; Admin Dose 20 MG; Start 12/26/18 at 09:00 Morphine Sulfate (morphine) 1 mg Q4H PRN IV MOD TO SEVERE PAIN Last administered on 12/28/18 15:30; Admin Dose 1 MG; Start 12/26/18 at 14:30 TYE PETIT Dec 28, 2018 16:34
[2018-12-28 19:46] VITALS: BP 97/60; PULSE 87; RESP 20
[2018-12-29 01:32] VITALS: BP 108/63; PULSE 80; RESP 20
[2018-12-29] MEDS: morphine 2 MG INJ IV PRN ×5 (02:15→22:09)
[2018-12-29] MEDS ORDERED: ZOLPIDEM 5 MG TAB PO ONE (03:00)
[2018-12-29 07:47] VITALS: BP 92/61; PULSE 76; RESP 16
[2018-12-29] MEDS: FLUCONAZOLE 100 MG TAB PO SCH (08:43)
[2018-12-29] MEDS: EMTRICITABINE/TENOFOVIR TAB PO SCH (08:43)
[2018-12-29] MEDS: ZINC SULFATE 220 MG CAP PO SCH (08:43)
[2018-12-29] MEDS: ZIDOVUDINE 300 MG TAB PO SCH ×2 (08:43→21:12)
[2018-12-29] MEDS: FAMOTIDINE 20 MG TAB PO SCH (08:43)
[2018-12-29] MEDS: LACTOBACILLUS RHAMNOSUS CAP PO SCH ×2 (08:43→21:15)
[2018-12-29] MEDS: ASCORBIC ACID 500 MG TAB PO SCH ×2 (08:43→21:12)
[2018-12-29] MEDS: MULTIVITAMINS/MINERALS TAB PO SCH (08:43)
[2018-12-29] MEDS: TRIMETHOPRIM/SULFAMETHOX (DS) TAB PO SCH (08:43)
[2018-12-29] MEDS: PREDNISOLONE ACET 1% 5 ML OPH LEFT EYE SCH (08:44)
[2018-12-29] MEDS: ATROPINE 1% 5 ML OPH LEFT EYE SCH ×2 (08:44→21:13)
--- NOTE | 2018-12-29 13:28 | PN ---
Date/Time of Note Date/Time of Note DATE: 12/29/18 TIME: 13:04 Assessment/Plan VTE Prophylaxis Risk score (from Nsg)>0 risk: 1 SCD applied (from Nsg): Yes Pharmacological prophylaxis: other Lines/Catheters IV Catheter Type (from Nrsg): Saline Lock Urinary Cath still in place: No Assessment/Plan Hospital Course S: Patient seen ID team today. No fevers overnight, tolerating diet. Wound VAC still off, still waiting for plastic surgeon to come evaluate the patient. O: vs - see below PE: Gen: Lying in bed, family at bedside, answering questions appropriately HEENT: PERRL, EOMI Neck: Supple, no pallor CV: reg Res: ctab GI: bs+ nt nd no r r g; dressed wounds M/S: no edema A/P: 43-year-old male who presented with: # Nida gangrene: sp multiple debridements this admission, the last one occurred on December 08, 2018. Again wound vacs were in place until today. Still waiting plastic surgery consult, although this is proving difficult to obtain as there was an attempt earlier to transfer to tertiary center for skin grafting. However [facility], [facility], [facility], and now [facility] per case management have all refused; we also spoke with Dr. Petit plastic surgeon 2-3 days ago and at this time he is also unable to see the patient at this time for what looks like possible insurance issues. -For now continue wound care per wound nurse consult and recommendations including wound VAC, likely will be put back on in a few days. -Continue current antibiotics per ID recommendations and pain control medications -Again, trying other options for transfer to tertiary center for plastic surgery eval and consult, have also discussed the case with [facility] management team to see about recruiting another plastic surgeon to come perform procedure on this patient (likely skin graft) while hospitalized here at [facility] during this hospitalization. # HIV: Diagnosed on this admission, last CD4 count 224 on December 03, 2018 -Continue on HAART on therapy, follow-up ID recommendations # Hepatitis B? - Hepatitis core total antibody is positive -Monitor, follow-up ID recommendations # Past tobacco and past drug use: Cocaine marijuana -Counseled on cessation # Abnormal LFTs: Have trended down now and are in the normal range presently -Continue to monitor for now # Past alcoholism-Counseled on cessation #encephalopathy: stable/resolved -monitor # Acute renal failure: resolved -monitor # Postop transient respiratory failure - extubated promptly, no present issues -Monitor for now # SIADH/hyponatremia - stable -Monitor # Left eye blindness: Monitor for now # PICC line associated infection?: Appears to be improving - follow-up ID recommendations, continue current antibiotics Diarrhea: Resolved now, likely Colace MiraLAX associated. -Observe for now, if reoccurs, consider ruling out for C. difficile at that time Result Diagram: 12/28/18 0458 12/28/18 0458 Results 24hrs Laboratory Tests Test 12/29/18 10:12 Lab Scanned Report REFERENCE LAB Exam/Review of Systems Exam Vitals Vital Signs Date Temp Pulse Resp B/P (MAP) Pulse Ox O2 O2 Flow FiO2 Time Delivery Rate 12/29/18 98.0 76 16 92/61 (71) 95 07:47 12/25/18 Room Air 20:00 Intake and Output 12/28/18 12/28/18 12/29/18 1515:00 23:00 07:00 IntakeIntake Total 1340 ml 700 ml BalanceBalance 1340 ml 700 ml Results Results 24hrs Laboratory Tests Test 12/29/18 10:12 Lab Scanned Report REFERENCE LAB Medications Medication Current Medications Ondansetron HCl (Zofran Inj) 4 mg Q6H PRN IV NAUSEA AND/OR VOMITING Last administered on 12/11/18at 17:52; Admin Dose 4 MG; Start 11/30/18 at 21:00 Acetaminophen (Tylenol Liquid) 650 mg Q6H PRN PO PAIN LEVEL 1-3 OR FEVER Last administered on 12/14/18at 01:51; Admin Dose 650 MG; Start 11/30/18 at 21:00 Emtricitabine/ Tenofovir (Truvada) 1 tab DAILY PO Last administered on 12/29/18at 08:43; Admin Dose 1 TAB; Start 12/06/18 at 09:00 Sodium Hypochlorite (Dakins Diluted ()) 1 applic DAILY TP Last administered on 12/28/18at 09:54; Admin Dose 1 APPLIC; Start 12/06/18 at 09:00 Prednisolone Acetate (Pred-Forte 1%) 1 drop DAILY LEFT EYE Last administered on 12/29/18at 08:44; Admin Dose 1 DROP; Start 12/05/18 at 19:00 Atropine Sulfate (Atropine 1% Oph) 1 drop BID LEFT EYE Last administered on 12/29/18 08:44; Admin Dose 1 DROP; Start 12/07/18 at 21:00 Guaifenesin (Robitussin Liquid Cup) 100 mg Q4H PRN PO COUGH Last administered on 12/05/18 20:07; Admin Dose 100 MG; Start 12/05/18 at 19:00 Lactulose (Enulose) 20 gm DAILY PRN PO CONSTIPATION Last administered on 12/07/18 17:07; Admin Dose 20 GM; Start 12/07/18 at 16:00 [facility] 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 PRN XX WOUND CARE; Start 12/08/18 at 02:30 Multivitamins/ Minerals (Theragran-M) 1 tab DAILY PO Last administered on 12/29/18 08:43; Admin Dose 1 TAB; Start 12/09/18 at 09:00 Ascorbic Acid (Vitamin C) 500 mg BID PO Last administered on 12/29/18 08:43; Admin Dose 500 MG; Start 12/09/18 at 09:00 Zinc Sulfate (Zinc Sulfate) 220 mg DAILY PO Last administered on 12/29/18 08:43; Admin Dose 220 MG; Start 12/09/18 at 09:00 Ibuprofen (Motrin) 400 mg Q6H PRN PO MILD PAIN(1-3) OR TEMP>38C Last administered on 12/12/18 08:39; Admin Dose 400 MG; Start 12/10/18 at 21:00 Trimethoprim/ Sulfamethoxazole (Bactrim (Ds)) 1 tab DAILY PO Last administered on 12/29/18 08:43; Admin Dose 1 TAB; Start 12/12/18 at 12:00 Alteplase, Recombinant (Cathflo (Activase)) 2 mg MAY REPEAT X1 PRN CATHETER IF CATHETER REMAINS OCCULUDED Last administered on 12/12/18 18:04; Admin Dose 2 MG; Start 12/12/18 at 14:30 Acetaminophen/ Hydrocodone Bitart ([place] (5/325)) 1 tab Q4H PRN PO MODERATE PAIN LEVEL 4-6 Last administered on 12/27/18 21:03; Admin Dose 1 TAB; Start 12/12/18 at 15:00 Fluconazole (Diflucan) 100 mg DAILY PO Last administered on 12/29/18 08:43; Admin Dose 100 MG; Start 12/13/18 at 11:30 Morphine Sulfate (morphine) 4 mg DAILY PRN IV SEVERE PAIN LEVEL 7-10 Last administered on 12/20/18 11:59; Admin Dose 4 MG; Start 12/16/18 at 15:30 Zidovudine (Retrovir) 300 mg BID PO Last administered on 12/29/18 08:43; Admin Dose 300 MG; Start 12/21/18 at 21:00 Calcium Carbonate (Tums) 500 mg Q6H PRN PO DISTENSION/GAS/BLOATING Last administered on 12/24/18 06:29; Admin Dose 500 MG; Start 12/23/18 at 13:00 Lactobacillus Acidophilus/ Rhamnosus (Culturelle) 1 cap BID PO Last administered on 12/29/18 08:43; Admin Dose 1 CAP; Start 12/26/18 at 09:00 Famotidine (Pepcid) 20 mg DAILY PO Last administered on 12/29/18 08:43; Admin Dose 20 MG; Start 12/26/18 at 09:00 Morphine Sulfate (morphine) 1 mg Q4H PRN IV MOD TO SEVERE PAIN Last administered on 12/29/18 09:22; Admin Dose 1 MG; Start 12/26/18 at 14:30 TYE PETIT Dec 29, 2018 13:28
[2018-12-29 13:38] VITALS: BP 98/73; PULSE 90; RESP 16
--- NOTE | 2018-12-29 14:42 | CONS ---
Assessment/Plan Assessment/Plan Hospital Course (Demo Recall) Awake, nad Microbiology: Wound culture grew MRSA, repeat cx + Kleb, E coli, MRSA Antimicrobials: Truvada, Retrovir, Diflucan, Bactrim Physical examination: Well-developed well-nourished middle-aged man who is alert in no distress. Head atraumatic normocephalic sclera nonicteric neck is supple chest rise symmetrical breath sounds clear heart: S1-S2 abdomen soft bowel sounds present extremities without cyanosis. Skin: Patient has dressing over his left side of the abdomen and bilateral wound vacs to hips Assessment: 1. S/p ongoing fevers==> resolved after PICC dc'd 2. Fornier's gangrene and necrotizing fasciitis, status post multiple recurrent debridement ==> latest one on 12/08/18 by urology 3. AIDS===> CD4 12/13 143 4. Status post renal failure Plan: Remains stable, continue BAEZ and proph Rx, pending plastic surgery eval for skin graft Consultation Date/Type/Reason Admit Date/Time Nov 30, 2018 at 20:47 Initial Consult Date 12/02/18 Type of Consult id Requesting Provider: ROBIN TAVAREZ MD Date/Time of Note DATE: 12/29/18 TIME: 14:41 Exam/Review of Systems Exam Vitals Vital Signs Date Temp Pulse Resp B/P (MAP) Pulse Ox O2 O2 Flow FiO2 Time Delivery Rate 12/29/18 98.2 90 16 98/73 (81) 96 13:38 12/25/18 Room Air 20:00 Intake and Output 12/28/18 12/28/18 12/29/18 1515:00 23:00 07:00 IntakeIntake Total 1340 ml 700 ml BalanceBalance 1340 ml 700 ml Results Result Diagram: 12/28/18 0458 12/28/18 0458 Results 24hrs Laboratory Tests Test 12/29/18 10:12 Lab Scanned Report REFERENCE LAB Medications Medication Current Medications Ondansetron HCl (Zofran Inj) 4 mg Q6H PRN IV NAUSEA AND/OR VOMITING Last ad ministered on 12/11/18at 17:52; Admin Dose 4 MG; Start 11/30/18 at 21:00 Acetaminophen (Tylenol Liquid) 650 mg Q6H PRN PO PAIN LEVEL 1-3 OR FEVER Last administered on 12/14/18 01:51; Admin Dose 650 MG; Start 11/30/18 at 21:00 Emtricitabine/ Tenofovir (Truvada) 1 tab DAILY PO Last administered on 12/29/18 08:43; Admin Dose 1 TAB; Start 12/06/18 at 09:00 Sodium Hypochlorite (Dakins Diluted ()) 1 applic DAILY TP Last administered on 12/28/18 09:54; Admin Dose 1 APPLIC; Start 12/06/18 at 09:00 Prednisolone Acetate (Pred-Forte 1%) 1 drop DAILY LEFT EYE Last administered on 12/29/18 08:44; Admin Dose 1 DROP; Start 12/05/18 at 19:00 Atropine Sulfate (Atropine 1% Oph) 1 drop BID LEFT EYE Last administered on 12/29/18 08:44; Admin Dose 1 DROP; Start 12/07/18 at 21:00 Guaifenesin (Robitussin Liquid Cup) 100 mg Q4H PRN PO COUGH Last administered on 12/05/18 20:07; Admin Dose 100 MG; Start 12/05/18 at 19:00 Lactulose (Enulose) 20 gm DAILY PRN PO CONSTIPATION Last administered on 12/07/18 17:07; Admin Dose 20 GM; Start 12/07/18 at 16:00 Miscellaneous Information (Pending [facility] Order For Wound Care) 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 PRN XX WOUND CARE; Start 12/08/18 at 02:30 Multivitamins/ Minerals (Theragran-M) 1 tab DAILY PO Last administered on 12/29/18 08:43; Admin Dose 1 TAB; Start 12/09/18 at 09:00 Ascorbic Acid (Vitamin C) 500 mg BID PO Last administered on 12/29/18 08:43; Admin Dose 500 MG; Start 12/09/18 at 09:00 Zinc Sulfate (Zinc Sulfate) 220 mg DAILY PO Last administered on 12/29/18 08:43; Admin Dose 220 MG; Start 12/09/18 at 09:00 Ibuprofen (Motrin) 400 mg Q6H PRN PO MILD PAIN(1-3) OR TEMP>38C Last administered on 12/12/18 08:39; Admin Dose 400 MG; Start 12/10/18 at 21:00 Trimethoprim/ Sulfamethoxazole (Bactrim (Ds)) 1 tab DAILY PO Last administered on 12/29/18 08:43; Admin Dose 1 TAB; Start 12/12/18 at 12:00 Alteplase, Recombinant (Cathflo (Activase)) 2 mg MAY REPEAT X1 PRN CATHETER IF CATHETER REMAINS OCCULUDED Last administered on 12/12/18 18:04; Admin Dose 2 MG; Start 12/12/18 at 14:30 Acetaminophen/ Hydrocodone Bitart ([place] (5/325)) 1 tab Q4H PRN PO MODERATE PAIN LEVEL 4-6 Last administered on 12/27/18 21:03; Admin Dose 1 TAB; Start 12/12/18 at 15:00 Fluconazole (Diflucan) 100 mg DAILY PO Last administered on 12/29/18 08:43; Admin Dose 100 MG; Start 12/13/18 at 11:30 Morphine Sulfate (morphine) 4 mg DAILY PRN IV SEVERE PAIN LEVEL 7-10 Last admi nistered on 12/20/18 11:59; Admin Dose 4 MG; Start 12/16/18 at 15:30 Zidovudine (Retrovir) 300 mg BID PO Last administered on 12/29/18 08:43; Admin Dose 300 MG; Start 12/21/18 at 21:00 Calcium Carbonate (Tums) 500 mg Q6H PRN PO DISTENSION/GAS/BLOATING Last administered on 12/24/18 06:29; Admin Dose 500 MG; Start 12/23/18 at 13:00 Lactobacillus Acidophilus/ Rhamnosus (Culturelle) 1 cap BID PO Last administered on 12/29/18 08:43; Admin Dose 1 CAP; Start 12/26/18 at 09:00 Famotidine (Pepcid) 20 mg DAILY PO Last administered on 12/29/18 08:43; Admin Dose 20 MG; Start 12/26/18 at 09:00 Morphine Sulfate (morphine) 1 mg Q4H PRN IV MOD TO SEVERE PAIN Last administered on 12/29/18 13:50; Admin Dose 1 MG; Start 12/26/18 at 14:30 CRYSTAL TALAVERA NP Dec 29, 2018 14:42
[2018-12-29] MEDS: DAKINS 0.0125%(1/40) 473 ML SOLUTION TP SCH (17:44)
[2018-12-29 19:50] VITALS: BP 94/58; PULSE 89; RESP 18
[2018-12-30 01:11] VITALS: BP 100/57; PULSE 77; RESP 16
[2018-12-30] MEDS ORDERED: ZOLPIDEM 5 MG TAB PO PRN (01:30)
[2018-12-30 07:34] VITALS: BP 94/60; PULSE 77; RESP 20
[2018-12-30] MEDS: ZINC SULFATE 220 MG CAP PO SCH (08:14)
[2018-12-30] MEDS: FAMOTIDINE 20 MG TAB PO SCH (08:14)
[2018-12-30] MEDS: ZIDOVUDINE 300 MG TAB PO SCH ×2 (08:14→21:51)
[2018-12-30] MEDS: ASCORBIC ACID 500 MG TAB PO SCH ×2 (08:14→21:51)
[2018-12-30] MEDS: LACTOBACILLUS RHAMNOSUS CAP PO SCH ×2 (08:14→21:52)
[2018-12-30] MEDS: TRIMETHOPRIM/SULFAMETHOX (DS) TAB PO SCH (08:14)
[2018-12-30] MEDS: ATROPINE 1% 5 ML OPH LEFT EYE SCH ×2 (08:14→21:52)
[2018-12-30] MEDS: MULTIVITAMINS/MINERALS TAB PO SCH (08:14)
[2018-12-30] MEDS: FLUCONAZOLE 100 MG TAB PO SCH (08:14)
[2018-12-30] MEDS: EMTRICITABINE/TENOFOVIR TAB PO SCH (08:14)
[2018-12-30] MEDS: PREDNISOLONE ACET 1% 5 ML OPH LEFT EYE SCH (08:15)
[2018-12-30] MEDS: DAKINS 0.0125%(1/40) 473 ML SOLUTION TP SCH (08:15)
[2018-12-30] MEDS: morphine 2 MG INJ IV PRN ×4 (09:17→22:31)
--- NOTE | 2018-12-30 12:25 | CONS ---
Assessment/Plan Assessment/Plan Hospital Course (Demo Recall) All noted, nad Microbiology: Wound culture grew MRSA, repeat cx + Kleb, E coli, MRSA Antimicrobials: Truvada, Retrovir, Diflucan, Bactrim Physical examination: Well-developed well-nourished middle-aged man who is alert in no distress. Head atraumatic normocephalic sclera nonicteric neck is supple chest rise symmetrical breath sounds clear heart: S1-S2 abdomen soft bowel sounds present extremities without cyanosis. Skin: Patient has dressing over his left side of the abdomen and bilateral wound vacs to hips Assessment: 1. S/p ongoing fevers==> resolved after PICC dc'd 2. Fornier's gangrene and necrotizing fasciitis, status post multiple recurrent debridement ==> latest one on 12/08/18 by urology 3. AIDS===> CD4 12/13 143 4. Status post renal failure Plan: Remains stable, continue BAEZ and proph Rx, pending plastic surgery eval for skin graft Consultation Date/Type/Reason Admit Date/Time Nov 30, 2018 at 20:47 Initial Consult Date 12/02/18 Type of Consult id Requesting Provider: ROBIN TAVAREZ MD Date/Time of Note DATE: 12/30/18 TIME: 12:25 Exam/Review of Systems Exam Vitals Vital Signs Date Temp Pulse Resp B/P (MAP) Pulse Ox O2 O2 Flow FiO2 Time Delivery Rate 12/30/18 98.2 77 20 94/60 (71) 96 Room Air 07:34 Intake and Output 12/29/18 12/29/18 12/30/18 1515:00 23:00 07:00 IntakeIntake Total 1000 ml 700 ml BalanceBalance 1000 ml 700 ml Results Result Diagram: 12/28/18 0458 12/28/18 0458 Medications Medication Current Medications Ondansetron HCl (Zofran Inj) 4 mg Q6H PRN IV NAUSEA AND/OR VOMITING Last administered on 12/11/18at 17:52; Admin Dose 4 MG; Start 11/30/18 at 21:00 Acetaminophen (Tylenol Liquid) 650 mg Q6H PRN PO PAIN LEVEL 1-3 OR FEVER Last administered on 12/14/18at 01:51; Admin Dose 650 MG; Start 11/30/18 at 21:00 Emtricitabine/ Tenofovir (Truvada) 1 tab DAILY PO Last administered on 12/30/18 08:14; Admin Dose 1 TAB; Start 12/06/18 at 09:00 Sodium Hypochlorite (Dakins Diluted (40)) 1 applic DAILY TP Last administered on 12/30/18 08:15; Admin Dose 1 APPLIC; Start 12/06/18 at 09:00 Prednisolone Acetate (Pred-Forte 1%) 1 drop DAILY LEFT EYE Last administered on 12/30/18 08:15; Admin Dose 1 DROP; Start 12/05/18 at 19:00 Atropine Sulfate (Atropine 1% Oph) 1 drop BID LEFT EYE Last administered on 12/30/18 08:14; Admin Dose 1 DROP; Start 12/07/18 at 21:00 Guaifenesin (Robitussin Liquid Cup) 100 mg Q4H PRN PO COUGH Last administered on 12/05/18 20:07; Admin Dose 100 MG; Start 12/05/18 at 19:00 Lactulose (Enulose) 20 gm DAILY PRN PO CONSTIPATION Last administered on 12/07/18 17:07; Admin Dose 20 GM; Start 12/07/18 at 16:00 Miscellaneous Information (Pending [facility] Order For Wound Care) 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 PRN XX WOUND CARE; Start 12/08/18 at 02:30 Multivitamins/ Minerals (Theragran-M) 1 tab DAILY PO Last administered on 9at 08:14; Admin Dose 1 TAB; Start 12/09/18 at 09:00 Ascorbic Acid (Vitamin C) 500 mg BID PO Last administered on 12/30/18 08:14; Admin Dose 500 MG; Start 12/09/18 at 09:00 Zinc Sulfate (Zinc Sulfate) 220 mg DAILY PO Last administered on 12/30/18 08:14; Admin Dose 220 MG; Start 12/09/18 at 09:00 Ibuprofen (Motrin) 400 mg Q6H PRN PO MILD PAIN(1-3) OR TEMP>38C Last administered on 12/12/18 08:39; Admin Dose 400 MG; Start 12/10/18 at 21:00 Trimethoprim/ Sulfamethoxazole (Bactrim (Ds)) 1 tab DAILY PO Last administered on 12/30/18 08:14; Admin Dose 1 TAB; Start 12/12/18 at 12:00 Alteplase, Recombinant (Cathflo (Activase)) 2 mg MAY REPEAT X1 PRN CATHETER IF CATHETER REMAINS OCCULUDED Last administered on 12/12/18 18:04; Admin Dose 2 MG; Start 12/12/18 at 14:30 Acetaminophen/ Hydrocodone Bitart ([place] (5/325)) 1 tab Q4H PRN PO MODERATE PAIN LEVEL 4-6 Last administered on 12/27/18 21:03; Admin Dose 1 TAB; Start 12/12/18 at 15:00 Fluconazole (Diflucan) 100 mg DAILY PO Last administered on 12/30/18 08:14; Admin Dose 100 MG; Start 12/13/18 at 11:30 Morphine Sulfate (morphine) 4 mg DAILY PRN IV SEVERE PAIN LEVEL 7-10 Last administered on 12/20/18 11:59; Admin Dose 4 MG; Start 12/16/18 at 15:30 Zidovudine (Retrovir) 300 mg BID PO Last administered on 12/30/18 08:14; Admin Dose 300 MG; Start 12/21/18 at 21:00 Calcium Carbonate (Tums) 500 mg Q6H PRN PO DISTENSION/GAS/BLOATING Last administered on 12/24/18 06:29; Admin Dose 500 MG; Start 12/23/18 at 13:00 Lactobacillus Acidophilus/ Rhamnosus (Culturelle) 1 cap BID PO Last administered on 12/30/18 08:14; Admin Dose 1 CAP; Start 12/26/18 at 09:00 Famotidine (Pepcid) 20 mg DAILY PO Last administered on 12/30/18 08:14; Admin Dose 20 MG; Start 12/26/18 at 09:00 Morphine Sulfate (morphine) 1 mg Q4H PRN IV MOD TO SEVERE PAIN Last administered on 12/30/18 09:17; Admin Dose 1 MG; Start 12/26/18 at 14:30 CRYSTAL RAMIREZ NP Dec 30, 2018 12:25
[2018-12-30 14:28] VITALS: BP 122/76; PULSE 99; RESP 19
--- NOTE | 2018-12-30 15:30 | PN ---
Date/Time of Note Date/Time of Note DATE: 12/30/18 TIME: 15:28 Assessment/Plan VTE Prophylaxis Risk score (from Nsg)>0 risk: 2 SCD applied (from Nsg): Yes Pharmacological prophylaxis: other Lines/Catheters IV Catheter Type (from Nrsg): Saline Lock Urinary Cath still in place: No Assessment/Plan Hospital Course S: Patient seen by ID team earlier today. Still waiting for plastic surgeon to see the patient, administration is working on trying to secure the services of this consult at the present time. Patient updated today by loan representative from initiation as well as top case assembler on this as well as from medical team. 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 Again wound vacs were in place until today. Still waiting plastic surgery consult, although this is proving difficult to obtain as there was an attempt earlier to transfer to tertiary center for skin grafting. However [facility], [facility], [facility], and now [facility] per case management have all refused; we also spoke with Dr. Petit plastic surgeon 4 days ago and at this time he is also unable to see the patient at this time for what looks like possible insurance issues. -For now continue wound care per wound nurse consult and recommendations including wound VAC, likely will be put back on in a few days. -Continue current antibiotics per ID recommendations and pain control medications -Again, trying other options for transfer to tertiary center for plastic surgery eval and consult, have also discussed the case with formerly [facility] administration and management team to see about recruiting another plastic surgeon to come perform procedure on this patient (likely skin graft) while hospitalized here at [facility] during this hospitalization -they are presently reaching out to plastic surgeon with privileges at this hospital to set this up. # HIV: Diagnosed on this admission, last CD4 count 224 on December 03, 2018 -Continue on HAART on therapy, follow-up ID recommendations # Hepatitis B? - Hepatitis core total antibody is positive -Monitor, follow-up ID recommendations # Past tobacco and past drug use: Cocaine marijuana -Counseled on cessation # Abnormal LFTs: Have trended down now and are in the normal range presently -Continue to monitor for now # Past alcoholism-Counseled on cessation #encephalopathy: stable/resolved -monitor # Acute renal failure: resolved -monitor # Postop transient respiratory failure - extubated promptly, no present issues -Monitor for now # SIADH/hyponatremia - stable -Monitor # Left eye blindness: Monitor for now # PICC line associated infection?: Appears to be improving - follow-up ID recommendations, continue current antibiotics Diarrhea: Resolved now, likely Colace MiraLAX associated. -Observe for now, if reoccurs, consider ruling out for C. difficile at that time Result Diagram: 12/28/18 0458 12/28/188 Exam/Review of Systems Exam Vitals Vital Signs Date Temp Pulse Resp B/P (MAP) Pulse Ox O2 O2 Flow FiO2 Time Delivery Rate 12/30/18 99 19 122/76 96 Room Air 14:28 (91) 12/30/18 98.2 07:34 Intake and Output 12/29/18 12/29/18 12/30/18 1515:00 23:00 07:00 IntakeIntake Total 1000 ml 700 ml BalanceBalance 1000 ml 700 ml Medications Medication Current Medications Ondansetron HCl (Zofran Inj) 4 mg Q6H PRN IV NAUSEA AND/OR VOMITING Last administered on 12/11/18at 17:52; Admin Dose 4 MG; Start 11/30/18 at 21:00 Acetaminophen (Tylenol Liquid) 650 mg Q6H PRN PO PAIN LEVEL 1-3 OR FEVER Last administered on 12/14/18at 01:51; Admin Dose 650 MG; Start 11/30/18 at 21:00 Emtricitabine/ Tenofovir (Truvada) 1 tab DAILY PO Last administered on 12/30/18at 08:14; Admin Dose 1 TAB; Start 12/06/18 at 09:00 Sodium Hypochlorite (Dakins Diluted (40)) 1 applic DAILY TP Last administered on 12/30/18at 08:15; Admin Dose 1 APPLIC; Start 12/06/18 at 09:00 Prednisolone Acetate (Pred-Forte 1%) 1 drop DAILY LEFT EYE Last administered on 12/30/18at 08:15; Admin Dose 1 DROP; Start 12/05/18 at 19:00 Atropine Sulfate (Atropine 1% Oph) 1 drop BID LEFT EYE Last administered on 12/30/18 08:14; Admin Dose 1 DROP; Start 12/07/18 at 21:00 Guaifenesin (Robitussin Liquid Cup) 100 mg Q4H PRN PO COUGH Last administered on 12/05/18 20:07; Admin Dose 100 MG; Start 12/05/18 at 19:00 Lactulose (Enulose) 20 gm DAILY PRN PO CONSTIPATION Last administered on 12/07/18 17:07; Admin Dose 20 GM; Start 12/07/18 at 16:00 Miscellaneous Information (Pending [facility] Order For Wound Care) 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 PRN XX WOUND CARE; Start 12/08/18 at 02:30 Multivitamins/ Minerals (Theragran-M) 1 tab DAILY PO Last administered on 12/30/18 08:14; Admin Dose 1 TAB; Start 12/09/18 at 09:00 Ascorbic Acid (Vitamin C) 500 mg BID PO Last administered on 12/30/18 08:14; Admin Dose 500 MG; Start 12/09/18 at 09:00 Zinc Sulfate (Zinc Sulfate) 220 mg DAILY PO Last administered on 12/30/18 08:14; Admin Dose 220 MG; Start 12/09/18 at 09:00 Ibuprofen (Motrin) 400 mg Q6H PRN PO MILD PAIN(1-3) OR TEMP>38C Last administered on 12/12/18 08:39; Admin Dose 400 MG; Start 12/10/18 at 21:00 Trimethoprim/ Sulfamethoxazole (Bactrim (Ds)) 1 tab DAILY PO Last administered on 12/30/18 08:14; Admin Dose 1 TAB; Start 12/12/18 at 12:00 Alteplase, Recombinant (Cathflo (Activase)) 2 mg MAY REPEAT X1 PRN CATHETER IF CATHETER REMAINS OCCULUDED Last administered on 12/12/18 18:04; Admin Dose 2 MG; Start 12/12/18 at 14:30 Acetaminophen/ Hydrocodone Bitart ([place] (5/325)) 1 tab Q4H PRN PO MODERATE PAIN LEVEL 4-6 Last administered on 12/27/18 21:03; Admin Dose 1 TAB; Start 12/12/18 at 15:00 Fluconazole (Diflucan) 100 mg DAILY PO Last administered on 12/30/18 08:14; Admin Dose 100 MG; Start 12/13/18 at 11:30 Morphine Sulfate (morphine) 4 mg DAILY PRN IV SEVERE PAIN LEVEL 7-10 Last administered on 12/20/18 11:59; Admin Dose 4 MG; Start 12/16/18 at 15:30 Zidovudine (Retrovir) 300 mg BID PO Last administered on 12/30/18 08:14; Admin Dose 300 MG; Start 12/21/18 at 21:00 Calcium Carbonate (Tums) 500 mg Q6H PRN PO DISTENSION/GAS/BLOATING Last administered on 12/24/18 06:29; Admin Dose 500 MG; Start 12/23/18 at 13:00 Lactobacillus Acidophilus/ Rhamnosus (Culturelle) 1 cap BID PO Last administer ed on 12/30/18 08:14; Admin Dose 1 CAP; Start 12/26/18 at 09:00 Famotidine (Pepcid) 20 mg DAILY PO Last administered on 12/30/18 08:14; Admin Dose 20 MG; Start 12/26/18 at 09:00 Morphine Sulfate (morphine) 1 mg Q4H PRN IV MOD TO SEVERE PAIN Last administered on 12/30/18 14:13; Admin Dose 1 MG; Start 12/26/18 at 14:30 TYE PETIT Dec 30, 2018 15:30
--- NOTE | 2018-12-30 18:39 | CONS ---
Consult Date/Type/Reason Admit Date/Time Nov 30, 2018 at 20:47 Initial Consult Date 12/02/18 Type of Consultation: Urology Reason for Consultation Nida gangrene and necrotizing fasciitis Requesting Provider: ROBIN TAVAREZ MD Date/Time of Note DATE: 12/30/18 TIME: 18:36 Subjective Patient is comfortable. He is anxious and concerned about having his wound closed. He met with the neonatal social worker and the nurse outreach case manager today who updated him on arrangement to get a plastic surgeon to see him. Objective Vitals Vital Signs Date Temp Pulse Resp B/P (MAP) Pulse Ox O2 O2 Flow FiO2 Time Delivery Rate 12/30/18 99 19 122/76 96 Room Air 14:28 (91) 12/30/18 98.2 07:34 Intake and Output 12/29/18 12/29/18 12/30/18 1515:00 23:00 07:00 IntakeIntake Total 1000 ml 700 ml BalanceBalance 1000 ml 700 ml Exam The wound is covered with the packing. Results/Medications Result Diagram: 12/28/18 0458 12/28/18 0458 Home Meds Reported Medications Atropine Sulfate/0.9 %Sod Chlr (Atropine 0.01%-Ns Eye Drops) 10 Ml Drops, 1 ML OP BID, #1 12/05/18 Prednisolone Acetate* (Pred Forte*) 5 Ml Susp, 1 DROP LEFT EYE Q1HOUR, EA 12/04/18 Medications Current Medications Ondansetron HCl (Zofran Inj) 4 mg Q6H PRN IV NAUSEA AND/OR VOMITING Last administered on 12/11/18at 17:52; Admin Dose 4 MG; Start 11/30/18 at 21:00 Acetaminophen (Tylenol Liquid) 650 mg Q6H PRN PO PAIN LEVEL 1-3 OR FEVER Last administered on 12/14/18at 01:51; Admin Dose 650 MG; Start 11/30/18 at 21:00 Emtricitabine/ Tenofovir (Truvada) 1 tab DAILY PO Last administered on 12/30/18at 08:14; Admin Dose 1 TAB; Start 12/06/18 at 09:00 Sodium Hypochlorite (Dakins Diluted (40)) 1 applic DAILY TP Last administered on 12/30/18at 08:15; Admin Dose 1 APPLIC; Start 12/06/18 at 09:00 Prednisolone Acetate (Pred-Forte 1%) 1 drop DAILY LEFT EYE Last administered on 12/30/18 08:15; Admin Dose 1 DROP; Start 12/05/18 at 19:00 Atropine Sulfate (Atropine 1% Oph) 1 drop BID LEFT EYE Last administered on 12/30/18 08:14; Admin Dose 1 DROP; Start 12/07/18 at 21:00 Guaifenesin (Robitussin Liquid Cup) 100 mg Q4H PRN PO COUGH Last administered on 12/05/18 20:07; Admin Dose 100 MG; Start 12/05/18 at 19:00 Lactulose (Enulose) 20 gm DAILY PRN PO CONSTIPATION Last administered on 12/07/18 17:07; Admin Dose 20 GM; Start 12/07/18 at 16:00 [facility] 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 PRN XX WOUND CARE; Start 12/08/18 at 02:30 Multivitamins/ Minerals (Theragran-M) 1 tab DAILY PO Last administered on 12/30/18 08:14; Admin Dose 1 TAB; Start 12/09/18 at 09:00 Ascorbic Acid (Vitamin C) 500 mg BID PO Last administered on 12/30/18 08:14; Admin Dose 500 MG; Start 12/09/18 at 09:00 Zinc Sulfate (Zinc Sulfate) 220 mg DAILY PO Last administered on 12/30/18 08:14; Admin Dose 220 MG; Start 12/09/18 at 09:00 Ibuprofen (Motrin) 400 mg Q6H PRN PO MILD PAIN(1-3) OR TEMP>38C Last administered on 12/12/18 08:39; Admin Dose 400 MG; Start 12/10/18 at 21:00 Trimethoprim/ Sulfamethoxazole (Bactrim (Ds)) 1 tab DAILY PO Last administered on 12/30/18 08:14; Admin Dose 1 TAB; Start 12/12/18 at 12:00 Alteplase, Recombinant (Cathflo (Activase)) 2 mg MAY REPEAT X1 PRN CATHETER IF CATHETER REMAINS OCCULUDED Last administered on 12/12/18 18:04; Admin Dose 2 MG; Start 12/12/18 at 14:30 Acetaminophen/ Hydrocodone Bitart ([place] (5/325)) 1 tab Q4H PRN PO MODERATE PAIN LEVEL 4-6 Last administered on 12/27/18 21:03; Admin Dose 1 TAB; Start 12/12/18 at 15:00 Fluconazole (Diflucan) 100 mg DAILY PO Last administered on 12/30/18 08:14; Admin Dose 100 MG; Start 12/13/18 at 11:30 Morphine Sulfate (morphine) 4 mg DAILY PRN IV SEVERE PAIN LEVEL 7-10 Last administered on 12/20/18 11:59; Admin Dose 4 MG; Start 12/16/18 at 15:30 Zidovudine (Retrovir) 300 mg BID PO Last administered on 12/30/18 08:14; Admin Dose 300 MG; Start 12/21/18 at 21:00 Calcium Carbonate (Tums) 500 mg Q6H PRN PO DISTENSION/GAS/BLOATING Last administered on 12/24/18 06:29; Admin Dose 500 MG; Start 12/23/18 at 13:00 Lactobacillus Acidophilus/ Rhamnosus (Culturelle) 1 cap BID PO Last administered on 12/30/18 08:14; Admin Dose 1 CAP; Start 12/26/18 at 09:00 Famotidine (Pepcid) 20 mg DAILY PO Last administered on 12/30/18 08:14; Admin Dose 20 MG; Start 12/26/18 at 09:00 Morphine Sulfate (morphine) 1 mg Q4H PRN IV MOD TO SEVERE PAIN Last adminis tered on 12/30/18 18:20; Admin Dose 1 MG; Start 12/26/18 at 14:30 Assessment/Plan Hospital Course (Demo Recall) 42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 He underwent incision and drainage of the abdominal wall all the way up to the lower ribs on the left side and also of the left thigh and right inguinal area and debridement of the scrotum and perineal area. The wounds are getting better. He underwent debridement and incision and drainage of a right buttock abscess. The culture from the buttock grew MRSA. He is doing better. The abdominal wound as well as a scrotal wound are looking healthy and red. I think he is ready to have these closed but he will need skin graft and the plastic surgeon to do that for him. technical support manager and neonatal social worker are trying to get plastic surgeon to do his surgery. GWEN BUCK MD Dec 30, 2018 18:39
[2018-12-30 19:48] VITALS: BP 94/67; PULSE 88; RESP 20
[2018-12-31 01:40] VITALS: BP 94/62; PULSE 73; RESP 18
[2018-12-31] MEDS: HYDROCODONE/APAP (5/325) TAB PO PRN (01:56)
[2018-12-31] MEDS: ZOLPIDEM 5 MG TAB PO PRN (02:12)
[2018-12-31 08:13] VITALS: BP 93/67; PULSE 71; RESP 18
[2018-12-31] MEDS: FAMOTIDINE 20 MG TAB PO SCH (09:00)
[2018-12-31] MEDS: FLUCONAZOLE 100 MG TAB PO SCH (09:00)
[2018-12-31] MEDS: ZINC SULFATE 220 MG CAP PO SCH (09:00)
[2018-12-31] MEDS: ZIDOVUDINE 300 MG TAB PO SCH ×2 (09:00→21:31)
[2018-12-31] MEDS: MULTIVITAMINS/MINERALS TAB PO SCH (09:00)
[2018-12-31] MEDS: EMTRICITABINE/TENOFOVIR TAB PO SCH (09:00)
[2018-12-31] MEDS: LACTOBACILLUS RHAMNOSUS CAP PO SCH ×2 (09:00→21:31)
[2018-12-31] MEDS: ASCORBIC ACID 500 MG TAB PO SCH ×2 (09:00→21:31)
[2018-12-31] MEDS: ATROPINE 1% 5 ML OPH LEFT EYE SCH ×2 (09:01→21:55)
[2018-12-31] MEDS: DAKINS 0.0125%(1/40) 473 ML SOLUTION TP SCH (09:01)
[2018-12-31] MEDS: PREDNISOLONE ACET 1% 5 ML OPH LEFT EYE SCH (09:01)
[2018-12-31] MEDS: TRIMETHOPRIM/SULFAMETHOX (DS) TAB PO SCH (09:02)
[2018-12-31] MEDS: morphine 2 MG INJ IV PRN ×2 (11:53→22:11)
[2018-12-31] MEDS ORDERED: HYDROCORTISONE 2.5% 28.35 GM OINT TOP ONE (12:30)
--- NOTE | 2018-12-31 12:51 | PN ---
Date/Time of Note Date/Time of Note DATE: 12/31/18 TIME: 12:47 Assessment/Plan VTE Prophylaxis Risk score (from Nsg)>0 risk: 1 SCD applied (from Nsg): Yes Pharmacological prophylaxis: other Lines/Catheters IV Catheter Type (from Nrsg): Saline Lock Urinary Cath still in place: No Assessment/Plan Hospital Course S: Patient having a mild rash found in the left lateral chest area, evaluated by wound nurse and ordered for some steroid cream. Still waiting for plastic surgeon to come see the patient, right now there is no official plastic surgery consult on the case and this has been proven to be difficult in hospital administration again is trying to work with securing this consult for the case. Patient denies any fevers. 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 Again wound vacs were in place until today. Still waiting plastic surgery consult, although this is proving difficult to obtain as there was an attempt earlier to transfer to tertiary center for skin grafting. However [facility], [facility], [facility], and [facility], per case management, have all refused; we also spoke with Dr. Petit plastic surgeon 5 days ago and at this time he is also unable to see the patient at this time for what looks like possible insurance issues. Again hospital ministration is also trying to reach out to him and work on an agreement for him to come see the patient since that time. -For now continue wound care per wound nurse consult and recommendations including wound VAC, likely will be put back on in 1 to 2 days -Continue current antibiotics per ID recommendations and pain control medications -Again, trying other options for transfer to tertiary center for plastic surgery eval and consult, and as mentioned above [facility] administration and management team are working on trying to recruit another plastic surgeon to come perform procedure on this patient (likely skin graft) while hospitalized here at [facility] during this hospitalization -this has been going on for the last 3 to 4 days now but no new updates for today. # HIV: Diagnosed on this admission, last CD4 count 224 on December 03, 2018 -Continue on HAART on therapy, follow-up ID recommendations -Continue steroid cream as recommended by wound care nurse for the left lateral rash # Hepatitis B? - Hepatitis core total antibody is positive -Monitor, follow-up ID recommendations # Past tobacco and past drug use: Cocaine marijuana -Counseled on cessation # Abnormal LFTs: Have trended down now and are in the normal range presently -Continue to monitor for now # Past alcoholism-Counseled on cessation #encephalopathy: stable/resolved -monitor # Acute renal failure: resolved -monitor # Postop transient respiratory failure - extubated promptly, no present issues -Monitor for now # SIADH/hyponatremia - stable -Monitor # Left eye blindness: Monitor for now # PICC line associated infection?: Appears to be improving - follow-up ID recommendations, continue current antibiotics Diarrhea: Resolved now, likely Colace MiraLAX associated earlier this admission. -Observe for now, if reoccurs, consider ruling out for C. difficile at that time Result Diagram: 12/28/18 0458 12/28/18 0458 Exam/Review of Systems Exam Vitals Vital Signs Date Temp Pulse Resp B/P (MAP) Pulse Ox O2 O2 Flow FiO2 Time Delivery Rate 12/31/18 98.2 71 18 93/67 (76) 96 08:13 12/30/18 Room Air 14:28 Intake and Output 12/30/18 12/30/18 12/31/18 1515:00 23:00 07:00 IntakeIntake Total 240 ml 1020 ml OutputOutput Total 800 ml BalanceBalance 240 ml 1020 ml -800 ml Medications Medication Current Medications Ondansetron HCl (Zofran Inj) 4 mg Q6H PRN IV NAUSEA AND/OR VOMITING Last administered on 12/11/18at 17:52; Admin Dose 4 MG; Start 11/30/18 at 21:00 Acetaminophen (Tylenol Liquid) 650 mg Q6H PRN PO PAIN LEVEL 1-3 OR FEVER Last administered on 12/14/18at 01:51; Admin Dose 650 MG; Start 11/30/18 at 21:00 Emtricitabine/ Tenofovir (Truvada) 1 tab DAILY PO Last administered on 12/31/18at 09:00; Admin Dose 1 TAB; Start 12/06/18 at 09:00 Sodium Hypochlorite (Dakins Diluted (1/40)) 1 applic DAILY TP Last administered on 12/31/18 09:01; Admin Dose 1 APPLIC; Start 12/06/18 at 09:00 Prednisolone Acetate (Pred-Forte 1%) 1 drop DAILY LEFT EYE Last administered on 12/31/18 09:01; Admin Dose 1 DROP; Start 12/05/18 at 19:00 Atropine Sulfate (Atropine 1% Oph) 1 drop BID LEFT EYE Last administered on 12/31/18 09:01; Admin Dose 1 DROP; Start 12/07/18 at 21:00 Guaifenesin (Robitussin Liquid Cup) 100 mg Q4H PRN PO COUGH Last administered on 12/05/18 20:07; Admin Dose 100 MG; Start 12/05/18 at 19:00 Lactulose (Enulose) 20 gm DAILY PRN PO CONSTIPATION Last administered on 12/07/18 17:07; Admin Dose 20 GM; Start 12/07/18 at 16:00 Miscellaneous Information (Pending [facility] Order For Wound Care) 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 PRN XX WOUND CARE; Start 12/08/18 at 02:30 Multivitamins/ Minerals (Theragran-M) 1 tab DAILY PO Last administered on 09:00; Admin Dose 1 TAB; Start 12/09/18 at 09:00 Ascorbic Acid (Vitamin C) 500 mg BID PO Last administered on 12/31/18 09:00; Admin Dose 500 MG; Start 12/09/18 at 09:00 Zinc Sulfate (Zinc Sulfate) 220 mg DAILY PO Last administered on 12/31/18 09:00; Admin Dose 220 MG; Start 12/09/18 at 09:00 Ibuprofen (Motrin) 400 mg Q6H PRN PO MILD PAIN(1-3) OR TEMP>38C Last administered on 12/12/18 08:39; Admin Dose 400 MG; Start 12/10/18 at 21:00 Trimethoprim/ Sulfamethoxazole (Bactrim (Ds)) 1 tab DAILY PO Last administered on 12/31/18 09:02; Admin Dose 1 TAB; Start 12/12/18 at 12:00 Alteplase, Recombinant (Cathflo (Activase)) 2 mg MAY REPEAT X1 PRN CATHETER IF CATHETER REMAINS OCCULUDED Last administered on 12/12/18 18:04; Admin Dose 2 MG; Start 12/12/18 at 14:30 Acetaminophen/ Hydrocodone Bitart ([place] (5/325)) 1 tab Q4H PRN PO MODERATE PAIN LEVEL 4-6 Last administered on 12/31/18 01:56; Admin Dose 1 TAB; Start 12/12/18 at 15:00 Fluconazole (Diflucan) 100 mg DAILY PO Last administered on 12/31/18 09:00; Admin Dose 100 MG; Start 12/13/18 at 11:30 Morphine Sulfate (morphine) 4 mg DAILY PRN IV SEVERE PAIN LEVEL 7-10 Last administered on 12/20/18 11:59; Admin Dose 4 MG; Start 12/16/18 at 15:30 Zidovudine (Retrovir) 300 mg BID PO Last administered on 12/31/18 09:00; Admin Dose 300 MG; Start 12/21/18 at 21:00 Calcium Carbonate (Tums) 500 mg Q6H PRN PO DISTENSION/GAS/BLOATING Last administered on 12/24/18 06:29; Admin Dose 500 MG; Start 12/23/18 at 13:00 Lactobacillus Acidophilus/ Rhamnosus (Culturelle) 1 cap BID PO Last administered on 12/31/18 09:00; Admin Dose 1 CAP; Start 12/26/18 at 09:00 Famotidine (Pepcid) 20 mg DAILY PO Last administered on 12/31/18 09:00; Admin Dose 20 MG; Start 12/26/18 at 09:00 Morphine Sulfate (morphine) 1 mg Q4H PRN IV MOD TO SEVERE PAIN Last administered on 12/31/18 11:53; Admin Dose 1 MG; Start 12/26/18 at 14:30 Zolpidem Tartrate (Ambien) 5 mg HS MAY REPEAT X 1 PRN PO INSOMNIA Last administered on 12/31/18 02:12; Admin Dose 5 MG; Start 12/31/18 at 02:30 TYE PETIT Dec 31, 2018 12:50
[2018-12-31 13:24] VITALS: BP 98/62; PULSE 80; RESP 18
[2018-12-31] MEDS: morphine 4 MG/ML VIAL IV PRN (16:22)
--- NOTE | 2018-12-31 18:39 | CONS ---
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 Abscess of right buttockPostoperative DiagnosisSame Operation/Procedure Performed Debridement of all necrotized tissue in the scrotum perineal area base of the penis left inguinal area and of all the abdominal wound including the muscles. 12/31/18 1434 12/31/18 1434 CURRENT ABX: DAY # =>+ BACTRIM PO + Diflucan s/p Merrem, Vanco, Cipro s/p + Zosyn + Clinda IV HIV ARV MEDS: Initiated 12/06/18 Started Truvada + Combivir in am 12/06/18 + Bactrim 1 TAB po Daily CURRENT ARV: Truvada + Retrovir 24H INTERVAL SUMMARY * Coping well with serious health conditions -- positive attitude -- Awake, alert, coping well -- No fevers, VSS * Per notes -- fevers resolved with removal of PICC Line MICRO * 12/14/18 Urine Cx (-) * 12/14/18 BCX (-) * 12/13/18 PICC DC'D WOUND CULTURE Final Source: PICC line cath tip NO GROWTH AFTER 3 DAYS * 12/12/18 Urine Cx (-) * 12/12/18 BCx (-) * 12/08/18 BUTTOCK CX: WOUND CULTURE Final Organism 1 METHICILLIN RESISTANT S.AUREUS QUANTITY SCANT GROWTH . MULTI DRUG RESISTANT ORGANISM Organism 2 K.PNEUMONIAE SSP PNEUMONIAE QUANTITY SCANT GROWTH Organism 3 ESCHERICHIA COLI QUANTITY ISOLATED FROM BROTH ONLY MRSA K PNE SPP E COLI M.I.C. RX M.I.C. RX M.I.C. RX --------- --- --------- --- --------- --- AMPICILLIN >=32 R CEFAZOLIN R R R CEFOTAXIME S S CIPROFLOXACIN >=8 R <=0.25 S <=0.25 S CLINDAMYCIN <=0.25 S DOXYCYCLINE S ERYTHROMYCIN >=8 R GENTAMICIN <=1 S <=1 S LEVOFLOXACIN 4 R <=0.12 S <=0.12 S OXACILLIN >=4 R PENICILLIN-G >=0.5 R RIFAMPIN <=0.5 S VANCOMYCIN <=0.5 S TOBRAMYCIN <=1 S <=1 S TRIMETHOPRIM/SULFAMETHOXAZOLE 80 R >=320 R >=320 R PIPERACILLIN/TAZOBACTAM <=4 S * 12/04/18 THIGH TISSUE (BIOPSY) CULTURE P NO GROWTH AFTER 1 DAY * ABD CX: (+)MRSA * 12/02/18 BCX (-) * 12/02/18 SCROTAL WOUND CX: WOUND CULTURE Final Organism 1 METHICILLIN RESISTANT S.AUREUS QUANTITY 2+ . MULTI DRUG RESISTANT ORGANISM MRSA M.I.C. RX --------- --- CEFAZOLIN R CIPROFLOXACIN >=8 R CLINDAMYCIN <=0.25 S DOXYCYCLINE S ERYTHROMYCIN >=8 R LEVOFLOXACIN 4 R OXACILLIN R PENICILLIN-G >=0.5 R RIFAMPIN <=0.5 S VANCOMYCIN <=0.5 S TRIMETHOPRIM/SULFAMETHOXAZOLE 20 S HIV SURVEILLANCE STATUS * 12/02/18 (+)HIV AB confirmed -> STARTED ON ARV MEDS TRUVADA + Retrovir * HIV resistance panel and Integrase Genotyping sent 11/03/18 == HIV resistance panel resulted in a "wild viral type" = NO RESISTANCE * HLA-[id number] phenotyping sent - required for Rx Abacavir (Triumeq) if (-) OK for Abacavir * 12/03/18 CD4# @ 224# - CD4% @12% => Technically (+)AIDS per CD4% 12% with low CD4#224 in setting of SKEWED CBC DIFFERENTIAL w/Leukocytosis-> 80% NEUTs% and BANDEMIA with Lymphocyte percentage of DIFF markedly reduced to 10.8% in setting of bacteria infection. Nevertheless, his CD4% of the lower lymphocyte count qualifies him for Dx of (+)AIDS -- expect to see CD4# rise as leukocytosis due to neutrophilia/bandemia normalize. * 12/01/18 CD4# 143 and 13% CD4% => report uploaded 12/13/18 from [employer] * 12/01/18 HIV Viral Load HIV 1 RNA QN PCR 632,000 w/ 5.80 LOG => report uploaded 12/13/18 from [employer] PHYSICAL EXAMINATION: GENERAL: VSS, NAD HEENT: Prior NECK: Supple, CHEST: Rise symmetrical HEART: Pulse RRR ABDOMEN/: DSB C/D/I * Patient has dressing over his left side of the abdomen and bilateral wound vacs to hips EXTREMITIES: Warm, dry SKIN: No rash, no diaphoresis ID ASSESSMENT 42 yo M admit with: 1. Septic shock w/hypotension, fevers, leukocytosis due to #2 2. MRSA Nida's gangrene * s/p dbridements x2 on 11/30/18 and most recent on 12/03/18. * He underwent incision and drainage of the abdominal wall all the way up to the lower ribs on the left side and also of the left thigh and right inguinal area and debridement of the scrotum and perineal area. 3. HIV=>(+)AIDS at date of Dx 12/02/18 (+)HIV AB confirmed * -> STARTED ON ARV MEDS TRUVADA + COMBIVIR 12/06/18 ==> Changed to Truvada + Retrovir * 12/01/18 CD4# @ 143 and 13% CD4% => report uploaded 12/13/18 from [employer] * 12/03/18 CD4# @ 224# - CD4% @12% => Technically (+)AIDS per CD4% 12% 3. HBV w/HBV+Delta acute infection October 2017 w/repeat HBsAB Indeterminate and HBsAG (-) in JAN 2018 * => HE CLEARED THE VIRUS 4. Post operative mechanical ventilation ->EXTUBATED 12/03/18 5. Anemia * -He is following up with driver license examiner as outpatient. He does not know what the diagnosis is, but he saw a retina specialist * MRI brain w/ 6. Acute renal insufficiency-resolving 7. Anemia (?)MRSA Nares ABX ALLERGIES: QUINOLONES INVASIVES: PIV, CURRENT ABX: DAY # 32=> BACTRIM PO + Diflucan s/p Merrem, Vanco, Cipro s/p + Zosyn + Clinda IV HIV ARV MEDS: Truvada + Retrovir + Bactrim 1 TAB po Daily ID RECOMMENDATIONS/PLAN: 1. Continue current ABX. 2. Repeat CD4# and HIV VL next week -- will be 30 days on ARV meds on 01/05/19 3. Per notes, pending skin grafting plastic surgery. Consultation Date/Type/Reason Admit Date/Time Nov 30, 2018 at 20:47 Initial Consult Date 12/02/18 Requesting Provider: ROBIN TAVAREZ MD Date/Time of Note DATE: 12/31/18 TIME: 18:29 Exam/Review of Systems Exam Vitals Vital Signs Date Temp Pulse Resp B/P (MAP) Pulse Ox O2 O2 Flow FiO2 Time Delivery Rate 12/31/18 98.0 80 18 98/62 (74) 96 13:24 12/30/18 Room Air 14:28 Intake and Output 12/30/18 12/30/18 12/31/18 1515:00 23:00 07:00 IntakeIntake Total 240 ml 1020 ml OutputOutput Total 800 ml BalanceBalance 240 ml 1020 ml -800 ml Results Result Diagram: 12/31/18 1434 12/31/18 1434 Results 24hrs Laboratory Tests Test 12/31/18 14:34 White Blood Count 4.2 L Red Blood Count 2.95 L Hemoglobin 8.4 L Hematocrit 25.4 L Mean Corpuscular Volume 86.1 Mean Corpuscular Hemoglobin 28.5 L Mean Corpuscular Hemoglobin Concent 33.1 Red Cell Distribution Width 17.5 H Platelet Count 487 H Mean Platelet Volume 8.8 Immature Granulocytes % 0.200 Neutrophils % 47.8 Lymphocytes % 37.9 Monocytes % 11.8 H Eosinophils % 0.9 Basophils % 1.4 Nucleated Red Blood Cells % 0.0 Immature Granulocytes # 0.010 Neutrophils # 2.0 Lymphocytes # 1.6 Monocytes # 0.5 Eosinophils # 0.0 Basophils # 0.1 Nucleated Red Blood Cells # 0.0 Sodium Level 138 Potassium Level 4.2 Chloride Level 105 Carbon Dioxide Level 26 Anion Gap 7 Blood Urea Nitrogen 13 Creatinine 0.71 Est Glomerular Filtrat Rate mL/min > 60 Glucose Level 98 Calcium Level 8.7 Phosphorus Level 4.5 Magnesium Level 1.7 Medications Medication Current Medications Ondansetron HCl (Zofran Inj) 4 mg Q6H PRN IV NAUSEA AND/OR VOMITING Last administered on 12/11/18 17:52; Admin Dose 4 MG; Start 11/30/18 at 21:00 Acetaminophen (Tylenol Liquid) 650 mg Q6H PRN PO PAIN LEVEL 1-3 OR FEVER Last administered on 12/14/18 01:51; Admin Dose 650 MG; Start 11/30/18 at 21:00 Emtricitabine/ Tenofovir (Truvada) 1 tab DAILY PO Last administered on 12/31/18 09:00; Admin Dose 1 TAB; Start 12/06/18 at 09:00 Sodium Hypochlorite (Dakins Diluted (40)) 1 applic DAILY TP Last administered on 12/31/18 09:01; Admin Dose 1 APPLIC; Start 12/06/18 at 09:00 Prednisolone Acetate (Pred-Forte 1%) 1 drop DAILY LEFT EYE Last administered on 12/31/18 09:01; Admin Dose 1 DROP; Start 12/05/18 at 19:00 Atropine Sulfate (Atropine 1% Oph) 1 drop BID LEFT EYE Last administered on 12/31/18 09:01; Admin Dose 1 DROP; Start 12/07/18 at 21:00 Guaifenesin (Robitussin Liquid Cup) 100 mg Q4H PRN PO COUGH Last administered on 12/05/18 20:07; Admin Dose 100 MG; Start 12/05/18 at 19:00 Lactulose (Enulose) 20 gm DAILY PRN PO CONSTIPATION Last administered on 12/07/18 17:07; Admin Dose 20 GM; Start 12/07/18 at 16:00 [facility]isc[facility] 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 PRN XX WOUND CARE; Start 12/08/18 at 02:30 Multivitamins/ Minerals (Theragran-M) 1 tab DAILY PO Last administered on 12/31/18 09:00; Admin Dose 1 TAB; Start 12/09/18 at 09:00 Ascorbic Acid (Vitamin C) 500 mg BID PO Last administered on 12/31/18 09:00; Admin Dose 500 MG; Start 12/09/18 at 09:00 Zinc Sulfate (Zinc Sulfate) 220 mg DAILY PO Last administered on 12/31/18 09:00; Admin Dose 220 MG; Start 12/09/18 at 09:00 Ibuprofen (Motrin) 400 mg Q6H PRN PO MILD PAIN(1-3) OR TEMP>38C Last admini stered on 12/12/18 08:39; Admin Dose 400 MG; Start 12/10/18 at 21:00 Trimethoprim/ Sulfamethoxazole (Bactrim (Ds)) 1 tab DAILY PO Last administered on 12/31/18 09:02; Admin Dose 1 TAB; Start 12/12/18 at 12:00 Alteplase, Recombinant (Cathflo (Activase)) 2 mg MAY REPEAT X1 PRN CATHETER IF CATHETER REMAINS OCCULUDED Last administered on 12/12/18 18:04; Admin Dose 2 MG; Start 12/12/18 at 14:30 Acetaminophen/ Hydrocodone Bitart ([place] (5/325)) 1 tab Q4H PRN PO MODERATE PAIN LEVEL 4-6 Last administered on 12/31/18 01:56; Admin Dose 1 TAB; Start 12/12/18 at 15:00 Fluconazole (Diflucan) 100 mg DAILY PO Last administered on 12/31/18 09:00; Admin Dose 100 MG; Start 12/13/18 at 11:30 Morphine Sulfate (morphine) 4 mg DAILY PRN IV SEVERE PAIN LEVEL 7-10 Last administered on 12/31/18 16:22; Admin Dose 4 MG; Start 12/16/18 at 15:30 Zidovudine (Retrovir) 300 mg BID PO Last administered on 12/31/18 09:00; Admin Dose 300 MG; Start 12/21/18 at 21:00 Calcium Carbonate (Tums) 500 mg Q6H PRN PO DISTENSION/GAS/BLOATING Last administered on 12/24/18 06:29; Admin Dose 500 MG; Start 12/23/18 at 13:00 Lactobacillus Acidophilus/ Rhamnosus (Culturelle) 1 cap BID PO Last administered on 12/31/18 09:00; Admin Dose 1 CAP; Start 12/26/18 at 09:00 Famotidine (Pepcid) 20 mg DAILY PO Last administered on 12/31/18at 09:00; Admin Dose 20 MG; Start 12/26/18 at 09:00 Morphine Sulfate (morphine) 1 mg Q4H PRN IV MOD TO SEVERE PAIN Last administered on 12/31/18at 11:53; Admin Dose 1 MG; Start 12/26/18 at 14:30 Zolpidem Tartrate (Ambien) 5 mg HS MAY REPEAT X 1 PRN PO INSOMNIA Last administered on 12/31/18at 02:12; Admin Dose 5 MG; Start 12/31/18 at 02:30 ROSS FERNANDES NP Dec 31, 2018 18:39
[2018-12-31 20:22] VITALS: BP 97/59; PULSE 87; RESP 20
[2019-01-01] MEDS: ZOLPIDEM 5 MG TAB PO PRN (00:43)
[2019-01-01 02:57] VITALS: BP 93/56; PULSE 78; RESP 18
[2019-01-01] MEDS: TRIMETHOPRIM/SULFAMETHOX (DS) TAB PO SCH (08:53)
[2019-01-01] MEDS: EMTRICITABINE/TENOFOVIR TAB PO SCH (08:53)
[2019-01-01] MEDS: LACTOBACILLUS RHAMNOSUS CAP PO SCH ×2 (08:53→20:49)
[2019-01-01] MEDS: ASCORBIC ACID 500 MG TAB PO SCH ×2 (08:53→20:49)
[2019-01-01] MEDS: ZIDOVUDINE 300 MG TAB PO SCH ×2 (08:53→20:49)
[2019-01-01] MEDS: ATROPINE 1% 5 ML OPH LEFT EYE SCH ×2 (08:54→20:49)
[2019-01-01] MEDS: ZINC SULFATE 220 MG CAP PO SCH (08:54)
[2019-01-01] MEDS: PREDNISOLONE ACET 1% 5 ML OPH LEFT EYE SCH (08:54)
[2019-01-01] MEDS: FAMOTIDINE 20 MG TAB PO SCH (08:54)
[2019-01-01] MEDS: DAKINS 0.0125%(1/40) 473 ML SOLUTION TP SCH (08:55)
[2019-01-01] MEDS: FLUCONAZOLE 100 MG TAB PO SCH (08:57)
[2019-01-01] MEDS: MULTIVITAMINS/MINERALS TAB PO SCH (09:45)
[2019-01-01] MEDS: morphine 4 MG/ML VIAL IV PRN (09:46)
[2019-01-01 10:53] VITALS: BP 93/60; PULSE 84; RESP 16
[2019-01-01] MEDS: morphine 2 MG INJ IV PRN ×2 (12:38→20:50)
[2019-01-01 15:00] VITALS: BP 99/62; PULSE 83; RESP 16
--- NOTE | 2019-01-01 15:04 | PN ---
Date/Time of Note Date/Time of Note DATE: 01/01/19 TIME: 14:58 Assessment/Plan VTE Prophylaxis Risk score (from Nsg)>0 risk: 1 SCD applied (from Nsg): Yes Pharmacological prophylaxis: other Lines/Catheters IV Catheter Type (from Nrsg): Saline Lock Urinary Cath still in place: No Assessment/Plan Hospital Course S: Patient had no acute events overnight, still waiting for an update from hospital administration and from any plastic surgeon who they are trying to reach out to to come see the patient for skin graft need. 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 Again wound vacs were in place until today. Still waiting plastic surgery consult, although this is proving difficult to obtain as there was an attempt earlier to transfer patient to tertiary center for skin grafting. However as of now [facility], [facility], [facility], and [facility], per case management, have all refused to accept the patient; we also spoke with Dr. Petit plastic surgeon 6 days ago and he stated at that time he is also unable to see the patient (for what looks like possible insurance issues that the patient has) . Again hospital administration has also reached out to him a few days ago to work on an agreement for him to come see the patient as a plastic surgeon consult -For now continue wound care per wound nurse consult and recommendations including wound VAC, likely will be put back on in 24 hours -Continue current antibiotics per ID recommendations and pain control m edications -Again, trying other options for transfer to tertiary center for plastic surgery eval and consult (although transfer seems to be a very futile option at this point), and as mentioned above [facility] administration and management team are working on trying to recruit a plastic surgeon to come perform procedure on this patient (likely skin graft) while hospitalized here at [facility] during this hospitalization - this has been going on for the last 4-5 days now but no new updates for today on this. # HIV: Diagnosed on this admission, last CD4 count 224 on December 03, 2018 -Continue on HAART on therapy, follow-up ID recommendations, they recommend checking another CD4 count on January 05, 2019 -Continue steroid cream as recommended by wound care nurse for the left lateral rash # Hepatitis B? - Hepatitis core total antibody is positive -Monitor, follow-up ID recommendations # Past tobacco and past drug use: Cocaine marijuana -Counseled on cessation # Abnormal LFTs: Have trended down now and are in the normal range presently -Continue to monitor for now # Past alcoholism-Counseled on cessation #encephalopathy: stable/resolved -monitor # Acute renal failure: resolved -monitor # Postop transient respiratory failure - extubated promptly, no present issues -Monitor for now # SIADH/hyponatremia - stable -Monitor # Left eye blindness: Monitor for now # PICC line associated infection?: Appears to be improving - follow-up ID recommendations, continue current antibiotics Diarrhea: Resolved now, likely Colace MiraLAX associated earlier this admission. -Observe for now, if reoccurs, consider ruling out for C. difficile Result Diagram: 12/31/18 1434 12/31/18 1434 Exam/Review of Systems Exam Vitals Vital Signs Date Temp Pulse Resp B/P (MAP) Pulse Ox O2 O2 Flow FiO2 Time Delivery Rate 01/01/19 98.0 84 16 93/60 (71) 97 10:53 12/30/18 Room Air 14:28 Intake and Output 12/31/18 12/31/18 01/01/19 1515:00 23:00 07:00 IntakeIntake Total 960 ml 480 ml BalanceBalance 960 ml 480 ml Medications Medication Current Medications Ondansetron HCl (Zofran Inj) 4 mg Q6H PRN IV NAUSEA AND/OR VOMITING Last administered on 12/11/18at 17:52; Admin Dose 4 MG; Start 11/30/18 at 21:00 Acetaminophen (Tylenol Liquid) 650 mg Q6H PRN PO PAIN LEVEL 1-3 OR FEVER Last administered on 12/14/18at 01:51; Admin Dose 650 MG; Start 11/30/18 at 21:00 Emtricitabine/ Tenofovir (Truvada) 1 tab DAILY PO Last administered on 01/01/19at 08:53; Admin Dose 1 TAB; Start 12/06/18 at 09:00 Sodium Hypochlorite (Dakins Diluted (1/40)) 1 applic DAILY TP Last administered on 01/01/19 08:55; Admin Dose 1 APPLIC; Start 12/06/18 at 09:00 Prednisolone Acetate (Pred-Forte 1%) 1 drop DAILY LEFT EYE Last administered on 01/01/19 08:54; Admin Dose 1 DROP; Start 12/05/18 at 19:00 Atropine Sulfate (Atropine 1% Oph) 1 drop BID LEFT EYE Last administered on 01/01/19 08:54; Admin Dose 1 DROP; Start 12/07/18 at 21:00 Guaifenesin (Robitussin Liquid Cup) 100 mg Q4H PRN PO COUGH Last administered on 12/05/18 20:07; Admin Dose 100 MG; Start 12/05/18 at 19:00 Lactulose (Enulose) 20 gm DAILY PRN PO CONSTIPATION Last administered on 9at 17:07; Admin Dose 20 GM; Start 12/07/18 at 16:00 Miscellaneous Information (Pending [facility] Order For Wound Care) 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 PRN XX WOUND CARE; Start 12/08/18 at 02:30 Multivitamins/ Minerals (Theragran-M) 1 tab DAILY PO Last administered on 01/01/19 09:45; Admin Dose 1 TAB; Start 12/09/18 at 09:00 Ascorbic Acid (Vitamin C) 500 mg BID PO Last administered on 01/01/19 08:53; Admin Dose 500 MG; Start 12/09/18 at 09:00 Zinc Sulfate (Zinc Sulfate) 220 mg DAILY PO Last administered on 01/01/19 08:54; Admin Dose 220 MG; Start 12/09/18 at 09:00 Ibuprofen (Motrin) 400 mg Q6H PRN PO MILD PAIN(1-3) OR TEMP>38C Last administered on 12/12/18 08:39; Admin Dose 400 MG; Start 12/10/18 at 21:00 Trimethoprim/ Sulfamethoxazole (Bactrim (Ds)) 1 tab DAILY PO Last administered on 01/01/19 08:53; Admin Dose 1 TAB; Start 12/12/18 at 12:00 Alteplase, Recombinant (Cathflo (Activase)) 2 mg MAY REPEAT X1 PRN CATHETER IF CATHETER REMAINS OCCULUDED Last administered on 12/12/18 18:04; Admin Dose 2 MG; Start 12/12/18 at 14:30 Acetaminophen/ Hydrocodone Bitart ([place] (5/325)) 1 tab Q4H PRN PO MODERATE PAIN LEVEL 4-6 Last administered on 12/31/18 01:56; Admin Dose 1 TAB; Start 12/12/18 at 15:00 Fluconazole (Diflucan) 100 mg DAILY PO Last administered on 01/01/19 08:57; Admin Dose 100 MG; Start 12/13/18 at 11:30 Morphine Sulfate (morphine) 4 mg DAILY PRN IV SEVERE PAIN LEVEL 7-10 Last administered on 01/01/19 09:46; Admin Dose 4 MG; Start 12/16/18 at 15:30 Zidovudine (Retrovir) 300 mg BID PO Last administered on 01/01/19 08:53; Admin Dose 300 MG; Start 12/21/18 at 21:00 Calcium Carbonate (Tums) 500 mg Q6H PRN PO DISTENSION/GAS/BLOATING Last administered on 12/24/18 06:29; Admin Dose 500 MG; Start 12/23/18 at 13:00 Lactobacillus Acidophilus/ Rhamnosus (Culturelle) 1 cap BID PO Last administered on 01/01/19 08:53; Admin Dose 1 CAP; Start 12/26/18 at 09:00 Famotidine (Pepcid) 20 mg DAILY PO Last administered on 01/01/19 08:54; Admin Dose 20 MG; Start 12/26/18 at 09:00 Morphine Sulfate (morphine) 1 mg Q4H PRN IV MOD TO SEVERE PAIN Last administered on 01/01/19 12:38; Admin Dose 1 MG; Start 12/26/18 at 14:30 Zolpidem Tartrate (Ambien) 5 mg HS MAY REPEAT X 1 PRN PO INSOMNIA Last administered on 01/01/19 00:43; Admin Dose 5 MG; Start 12/31/18 at 02:30 TYE PETIT Jan 01, 2019 15:04
[2019-01-01] MEDS: HYDROCODONE/APAP (5/325) TAB PO PRN (16:04)
--- NOTE | 2019-01-01 16:10 | CONS ---
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 Abscess of right buttockPostoperative DiagnosisSame Operation/Procedure Performed Debridement of all necrotized tissue in the scrotum perineal area base of the penis left inguinal area and of all the abdominal wound including the muscles. CURRENT ABX: DAY # =>+ BACTRIM PO + Diflucan s/p Merrem, Vanco, Cipro s/p + Zosyn + Clinda IV HIV ARV MEDS: Truvada + Retrovir 24H INTERVAL SUMMARY * CLINICALLY STABLE == no longer has wound vac * Pending PLASTIC SURGERY evaluation for flap repair MICRO * 12/14/18 Urine Cx (-) * 12/14/18 BCX (-) * 12/13/18 PICC DC'D WOUND CULTURE Final Source: PICC line cath tip NO GROWTH AFTER 3 DAYS * 12/12/18 Urine Cx (-) * 12/12/18 BCx (-) * 12/08/18 BUTTOCK CX: WOUND CULTURE Final Organism 1 METHICILLIN RESISTANT S.AUREUS QUANTITY SCANT GROWTH . MULTI DRUG RESISTANT ORGANISM Organism 2 K.PNEUMONIAE SSP PNEUMONIAE QUANTITY SCANT GROWTH Organism 3 ESCHERICHIA COLI QUANTITY ISOLATED FROM BROTH ONLY MRSA K PNE SPP E COLI M.I.C. RX M.I.C. RX M.I.C. RX --------- --- --------- --- --------- --- AMPICILLIN >=32 R CEFAZOLIN R R R CEFOTAXIME S S CIPROFLOXACIN >=8 R <=0.25 S <=0.25 S CLINDAMYCIN <=0.25 S DOXYCYCLINE S ERYTHROMYCIN >=8 R GENTAMICIN <=1 S <=1 S LEVOFLOXACIN 4 R <=0.12 S <=0.12 S OXACILLIN >=4 R PENICILLIN-G >=0.5 R RIFAMPIN <=0.5 S VANCOMYCIN <=0.5 S TOBRAMYCIN <=1 S <=1 S TRIMETHOPRIM/SULFAMETHOXAZOLE 80 R >=320 R >=320 R PIPERACILLIN/TAZOBACTAM <=4 S * 12/04/18 THIGH TISSUE (BIOPSY) CULTURE P NO GROWTH AFTER 1 DAY * ABD CX: (+)MRSA * 12/02/18 BCX (-) * 12/02/18 SCROTAL WOUND CX: WOUND CULTURE Final Organism 1 METHICILLIN RESISTANT S.AUREUS QUANTITY 2+ . MULTI DRUG RESISTANT ORGANISM MRSA M.I.C. RX --------- --- CEFAZOLIN R CIPROFLOXACIN >=8 R CLINDAMYCIN <=0.25 S DOXYCYCLINE S ERYTHROMYCIN >=8 R LEVOFLOXACIN 4 R OXACILLIN R PENICILLIN-G >=0.5 R RIFAMPIN <=0.5 S VANCOMYCIN <=0.5 S TRIMETHOPRIM/SULFAMETHOXAZOLE 20 S HIV SURVEILLANCE STATUS * 12/02/18 (+)HIV AB confirmed -> STARTED ON ARV MEDS TRUVADA + Retrovir * HIV resistance panel and Integrase Genotyping sent 11/03/18 == HIV resistance panel resulted in a "wild viral type" = NO RESISTANCE * HLA-[id number] phenotyping sent - required for Rx Abacavir (Triumeq) if (-) OK for Abacavir * 12/03/18 CD4# @ 224# - CD4% @12% => Technically (+)AIDS per CD4% 12% with low CD4#224 in setting of SKEWED CBC DIFFERENTIAL w/Leukocytosis-> 80% NEUTs% and BANDEMIA with Lymphocyte percentage of DIFF markedly reduced to 10.8% in setting of bacteria infection. Nevertheless, his CD4% of the lower lymphocyte count qualifies him for Dx of (+)AIDS -- expect to see CD4# rise as leukocytosis due to neutrophilia/bandemia normalize. * 12/01/18 CD4# 143 and 13% CD4% => report uploaded 12/13/18 from [facility] * 12/01/18 HIV Viral Load HIV 1 RNA QN PCR 632,000 w/ 5.80 LOG => report uploaded 12/13/18 from [facility] PHYSICAL EXAMINATION: GENERAL: VSS, NAD HEENT: Prior NECK: Supple, CHEST: Rise symmetrical HEART: Pulse RRR ABDOMEN/: DSB C/D/I * Patient has dressing over his left side of the abdomen and to hips EXTREMITIES: Warm, dry SKIN: No rash, no diaphoresis ID ASSESSMENT 42 yo M admit with: 1. Septic shock w/hypotension, fevers, leukocytosis due to #2 2. MRSA Nida's gangrene * s/p dbridements x2 on 11/30/18 and most recent on 12/03/18. * He underwent incision and drainage of the abdominal wall all the way up to the lower ribs on the left side and also of the left thigh and right inguinal area and debridement of the scrotum and perineal area. 3. HIV=>(+)AIDS at date of Dx 12/02/18 (+)HIV AB confirmed * -> STARTED ON ARV MEDS TRUVADA + COMBIVIR 12/06/18 ==> Changed to Truvada + Retrovir * 12/01/18 CD4# @ 143 and 13% CD4% => report uploaded 12/13/18 from [facility] * 12/03/18 CD4# @ 224# - CD4% @12% => Technically (+)AIDS per CD4% 12% 3. HBV w/HBV+Delta acute infection October 2017 w/repeat HBsAB Indeterminate and HBsAG (-) in JAN 2018 * => HE CLEARED THE VIRUS 4. Post operative mechanical ventilation ->EXTUBATED 12/03/18 5. Anemia * -He is following up with tank welder as outpatient. He does not know what the diagnosis is, but he saw a retina specialist * MRI brain w/ 6. Acute renal insufficiency-resolving 7. Anemia (?)MRSA Nares ABX ALLERGIES: QUINOLONES INVASIVES: PIV, CURRENT ABX: DAY # 32=> BACTRIM PO + Diflucan s/p Merrem, Vanco, Cipro s/p + Zosyn + Clinda IV HIV ARV MEDS: Truvada + Retrovir + Bactrim 1 TAB po Daily ID RECOMMENDATIONS/PLAN: 1. Continue current ABX. 2. Repeat CD4# and HIV VL next week -- will be 30 days on ARV meds on 01/05/19 3. CLINICALLY STABLE == no longer has wound vac * Pending PLASTIC SURGERY evaluation for flap repair Consultation Date/Type/Reason Admit Date/Time Nov 30, 2018 at 20:47 Initial Consult Date 12/02/18 Requesting Provider: ROBIN TAVAREZ MD Date/Time of Note DATE: 01/01/19 TIME: 16:08 Exam/Review of Systems Exam Vitals Vital Signs Date Temp Pulse Resp B/P (MAP) Pulse Ox O2 O2 Flow FiO2 Time Delivery Rate 01/01/19 98.1 83 16 99/62 (74) 94 Room Air 15:00 Intake and Output 12/31/18 12/31/18 01/01/19 1515:00 23:00 07:00 IntakeIntake Total 960 ml 480 ml BalanceBalance 960 ml 480 ml Results Result Diagram: 12/31/18 1434 12/31/18 1434 Medications Medication Current Medications Ondansetron HCl (Zofran Inj) 4 mg Q6H PRN IV NAUSEA AND/OR VOMITING Last administered on 12/11/18at 17:52; Admin Dose 4 MG; Start 11/30/18 at 21:00 Acetaminophen (Tylenol Liquid) 650 mg Q6H PRN PO PAIN LEVEL 1-3 OR FEVER Last administered on 12/14/18at 01:51; Admin Dose 650 MG; Start 11/30/18 at 21:00 Emtricitabine/ Tenofovir (Truvada) 1 tab DAILY PO Last administered on 01/01/19at 08:53; Admin Dose 1 TAB; Start 12/06/18 at 09:00 Sodium Hypochlorite (Dakins Diluted (40)) 1 applic DAILY TP Last administered on 01/01/19at 08:55; Admin Dose 1 APPLIC; Start 12/06/18 at 09:00 Prednisolone Acetate (Pred-Forte 1%) 1 drop DAILY LEFT EYE Last administered on 01/01/19at 08:54; Admin Dose 1 DROP; Start 12/05/18 at 19:00 Atropine Sulfate (Atropine 1% Oph) 1 drop BID LEFT EYE Last administered on 01/01/19 08:54; Admin Dose 1 DROP; Start 12/07/18 at 21:00 Guaifenesin (Robitussin Liquid Cup) 100 mg Q4H PRN PO COUGH Last administered on 12/05/18 20:07; Admin Dose 100 MG; Start 12/05/18 at 19:00 Lactulose (Enulose) 20 gm DAILY PRN PO CONSTIPATION Last administered on 12/07/18 17:07; Admin Dose 20 GM; Start 12/07/18 at 16:00 Miscellaneous Information ([facility]) 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 PRN XX WOUND CARE; Start 12/08/18 at 02:30 Multivitamins/ Minerals (Theragran-M) 1 tab DAILY PO Last administered on 01/01/19 09:45; Admin Dose 1 TAB; Start 12/09/18 at 09:00 Ascorbic Acid (Vitamin C) 500 mg BID PO Last administered on 01/01/19 08:53; Admin Dose 500 MG; Start 12/09/18 at 09:00 Zinc Sulfate (Zinc Sulfate) 220 mg DAILY PO Last administered on 01/01/19 08:54; Admin Dose 220 MG; Start 12/09/18 at 09:00 Ibuprofen (Motrin) 400 mg Q6H PRN PO MILD PAIN(1-3) OR TEMP>38C Last administered on 12/12/18 08:39; Admin Dose 400 MG; Start 12/10/18 at 21:00 Trimethoprim/ Sulfamethoxazole (Bactrim (Ds)) 1 tab DAILY PO Last administered on 01/01/19 08:53; Admin Dose 1 TAB; Start 12/12/18 at 12:00 Alteplase, Recombinant (Cathflo (Activase)) 2 mg MAY REPEAT X1 PRN CATHETER IF CATHETER REMAINS OCCULUDED Last administered on 12/12/18 18:04; Admin Dose 2 MG; Start 12/12/18 at 14:30 Acetaminophen/ Hydrocodone Bitart ([place] (5/325)) 1 tab Q4H PRN PO MODERATE PAIN LEVEL 4-6 Last administered on 01/01/19 16:04; Admin Dose 1 TAB; Start 12/12/18 at 15:00 Fluconazole (Diflucan) 100 mg DAILY PO Last administered on 01/01/19 08:57; Admin Dose 100 MG; Start 12/13/18 at 11:30 Morphine Sulfate (morphine) 4 mg DAILY PRN IV SEVERE PAIN LEVEL 7-10 Last administered on 01/01/19 09:46; Admin Dose 4 MG; Start 12/16/18 at 15:30 Zidovudine (Retrovir) 300 mg BID PO Last administered on 01/01/19 08:53; Admin Dose 300 MG; Start 12/21/18 at 21:00 Calcium Carbonate (Tums) 500 mg Q6H PRN PO DISTENSION/GAS/BLOATING Last admi nistered on 12/24/18 06:29; Admin Dose 500 MG; Start 12/23/18 at 13:00 Lactobacillus Acidophilus/ Rhamnosus (Culturelle) 1 cap BID PO Last administered on 01/01/19 08:53; Admin Dose 1 CAP; Start 12/26/18 at 09:00 Famotidine (Pepcid) 20 mg DAILY PO Last administered on 01/01/19 08:54; Admin Dose 20 MG; Start 12/26/18 at 09:00 Morphine Sulfate (morphine) 1 mg Q4H PRN IV MOD TO SEVERE PAIN Last a dministered on 01/01/19 12:38; Admin Dose 1 MG; Start 12/26/18 at 14:30 Zolpidem Tartrate (Ambien) 5 mg HS MAY REPEAT X 1 PRN PO INSOMNIA Last administered on 01/01/19 00:43; Admin Dose 5 MG; Start 12/31/18 at 02:30 ROSS FERNANDES NP Jan 01, 2019 16:10
[2019-01-01 16:29] VITALS: BP 104/61; PULSE 89; RESP 16
[2019-01-01 20:15] VITALS: BP 94/60; PULSE 80; RESP 18
[2019-01-02] MEDS: ZOLPIDEM 5 MG TAB PO PRN (01:42)
[2019-01-02 02:13] VITALS: BP 103/64; PULSE 80; RESP 18
[2019-01-02 08:12] VITALS: BP 94/58; PULSE 73; RESP 17
[2019-01-02] MEDS: ZIDOVUDINE 300 MG TAB PO SCH ×2 (08:45→22:00)
[2019-01-02] MEDS: ZINC SULFATE 220 MG CAP PO SCH (08:45)
[2019-01-02] MEDS: FLUCONAZOLE 100 MG TAB PO SCH (08:45)
[2019-01-02] MEDS: FAMOTIDINE 20 MG TAB PO SCH (08:45)
[2019-01-02] MEDS: TRIMETHOPRIM/SULFAMETHOX (DS) TAB PO SCH (08:45)
[2019-01-02] MEDS: LACTOBACILLUS RHAMNOSUS CAP PO SCH ×2 (08:45→22:00)
[2019-01-02] MEDS: MULTIVITAMINS/MINERALS TAB PO SCH (08:45)
[2019-01-02] MEDS: DAKINS 0.0125%(1/40) 473 ML SOLUTION TP SCH (08:46)
[2019-01-02] MEDS: ASCORBIC ACID 500 MG TAB PO SCH ×2 (08:46→22:00)
[2019-01-02] MEDS: EMTRICITABINE/TENOFOVIR TAB PO SCH (08:46)
[2019-01-02] MEDS: PREDNISOLONE ACET 1% 5 ML OPH LEFT EYE SCH (08:47)
[2019-01-02] MEDS: ATROPINE 1% 5 ML OPH LEFT EYE SCH ×2 (08:47→22:01)
[2019-01-02] MEDS: morphine 2 MG INJ IV PRN ×3 (09:01→22:37)
[2019-01-02] MEDS: HYDROCODONE/APAP (5/325) TAB PO PRN (10:08)
--- NOTE | 2019-01-02 10:27 | PN ---
Date/Time of Note Date/Time of Note DATE: 01/02/19 TIME: 10:25 Assessment/Plan VTE Prophylaxis Risk score (from Nsg)>0 risk: 1 SCD applied (from Nsg): No SCD contraindicated: low risk/ambulating Pharmacological prophylaxis: LMWH Lines/Catheters IV Catheter Type (from Nrsg): Saline Lock Urinary Cath still in place: No Assessment/Plan Hospital Course A/P Nida gangrene: sp debridement*3 . Stable, transfer to tertiary [if feasible] for skin grafting. [facility], [facility], refused; tying further options. Continue wound care HIV/ AIDS last CD4 count 143, on therapy Hepatitis B Past tobacco Past drugs: Cocaine/ marijuana Abn LFTs Past alcoholism Ac Encephalopathy stable/resolved Acute renal failure, resolved Postop transient respiratory failure extubated promptly SIADH/hyponatremia stable Left eye blindness PICC line associated infection? Diarrhea, likely Colace MiraLAX associated. Benign, observe; ro c diff Failure to thrive consider SNF rehab for wound care Adjustment disorder counseling if feasible S: 12/23 no distress. Sp multiple debridement; Has wound vacs. Wounds improved. Presently stable and fit for transfer to [facility] care for grafting. 12/24: Diarrhea but no abdominal pain or fever. On Colace MiraLAX. 12/25: No abd pain/ fever 01/02: No fever diarrhea. Frustrated awaiting assistance from plastic surgery options for skin graft. O: vss -cultures: MRSA, Klebsiella, E. coli PE no pallor reg ctab bs+ nt nd no r r g; dressed wounds no edema Result Diagram: 12/31/18 1434 12/31/18 1434 Exam/Review of Systems Exam Vitals Vital Signs Date Temp Pulse Resp B/P (MAP) Pulse Ox O2 O2 Flow FiO2 Time Delivery Rate 01/02/19 98.6 73 17 94/58 (70) 95 Room Air 08:12 Intake and Output 01/01/19 01/01/19 01/02/19 1515:00 23:00 07:00 IntakeIntake Total 940 ml 480 ml OutputOutput Total 300 ml BalanceBalance 640 ml 480 ml Medications Medication Current Medications Ondansetron HCl (Zofran Inj) 4 mg Q6H PRN IV NAUSEA AND/OR VOMITING Last administered on 12/11/18at 17:52; Admin Dose 4 MG; Start 11/30/18 at 21:00 Acetaminophen (Tylenol Liquid) 650 mg Q6H PRN PO PAIN LEVEL 1-3 OR FEVER Last administered on 12/14/18 01:51; Admin Dose 650 MG; Start 11/30/18 at 21:00 Emtricitabine/ Tenofovir (Truvada) 1 tab DAILY PO Last administered on 01/02/19 08:46; Admin Dose 1 TAB; Start 12/06/18 at 09:00 Sodium Hypochlorite (Dakins Diluted ()) 1 applic DAILY TP Last administered on 01/02/19 08:46; Admin Dose 1 APPLIC; Start 12/06/18 at 09:00 Prednisolone Acetate (Pred-Forte 1%) 1 drop DAILY LEFT EYE Last administered on 01/02/19 08:47; Admin Dose 1 DROP; Start 12/05/18 at 19:00 Atropine Sulfate (Atropine 1% Oph) 1 drop BID LEFT EYE Last administered on 01/02/19 08:47; Admin Dose 1 DROP; Start 12/07/18 at 21:00 Guaifenesin (Robitussin Liquid Cup) 100 mg Q4H PRN PO COUGH Last administered on 12/05/18 20:07; Admin Dose 100 MG; Start 12/05/18 at 19:00 Lactulose (Enulose) 20 gm DAILY PRN PO CONSTIPATION Last administered on 12/07/18 17:07; Admin Dose 20 GM; Start 12/07/18 at 16:00 Miscellaneous Information (Pending [facility] Order For Wound Care) 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 PRN XX WOUND CARE; Start 12/08/18 at 02:30 Multivitamins/ Minerals (Theragran-M) 1 tab DAILY PO Last administered on 01/02/19 08:45; Admin Dose 1 TAB; Start 12/09/18 at 09:00 Ascorbic Acid (Vitamin C) 500 mg BID PO Last administered on 01/02/19 08:46; Admin Dose 500 MG; Start 12/09/18 at 09:00 Zinc Sulfate (Zinc Sulfate) 220 mg DAILY PO Last administered on 01/02/19 08:45; Admin Dose 220 MG; Start 12/09/18 at 09:00 Ibuprofen (Motrin) 400 mg Q6H PRN PO MILD PAIN(1-3) OR TEMP>38C Last administered on 12/12/18 08:39; Admin Dose 400 MG; Start 12/10/18 at 21:00 Trimethoprim/ Sulfamethoxazole (Bactrim (Ds)) 1 tab DAILY PO Last administered on 01/02/19 08:45; Admin Dose 1 TAB; Start 12/12/18 at 12:00 Alteplase, Recombinant (Cathflo (Activase)) 2 mg MAY REPEAT X1 PRN CATHETER IF CATHETER REMAINS OCCULUDED Last administered on 12/12/18 18:04; Admin Dose 2 MG; Start 12/12/18 at 14:30 Acetaminophen/ Hydrocodone Bitart ([place] (5/325)) 1 tab Q4H PRN PO MODERATE PAIN LEVEL 4-6 Last administered on 01/02/19 10:08; Admin Dose 1 TAB; Start 12/12/18 at 15:00 Fluconazole (Diflucan) 100 mg DAILY PO Last administered on 01/02/19 08:45; Admin Dose 100 MG; Start 12/13/18 at 11:30 Morphine Sulfate (morphine) 4 mg DAILY PRN IV SEVERE PAIN LEVEL 7-10 Last administered on 01/01/19 09:46; Admin Dose 4 MG; Start 12/16/18 at 15:30 Zidovudine (Retrovir) 300 mg BID PO Last administered on 01/02/19 08:45; Admin Dose 300 MG; Start 12/21/18 at 21:00 Calcium Carbonate (Tums) 500 mg Q6H PRN PO DISTENSION/GAS/BLOATING Last administered on 12/24/18 06:29; Admin Dose 500 MG; Start 12/23/18 at 13:00 Lactobacillus Acidophilus/ Rhamnosus (Culturelle) 1 cap BID PO Last administered on 01/02/19 08:45; Admin Dose 1 CAP; Start 12/26/18 at 09:00 Famotidine (Pepcid) 20 mg DAILY PO Last administered on 01/02/19 08:45; Admin Dose 20 MG; Start 12/26/18 at 09:00 Morphine Sulfate (morphine) 1 mg Q4H PRN IV MOD TO SEVERE PAIN Last administered on 01/02/19 09:01; Admin Dose 1 MG; Start 12/26/18 at 14:30 Zolpidem Tartrate (Ambien) 5 mg HS MAY REPEAT X 1 PRN PO INSOMNIA Last administered on 01/02/19at 01:42; Admin Dose 5 MG; Start 12/31/18 at 02:30 YANELY MOYA MD Jan 02, 2019 10:27
[2019-01-02] MEDS: morphine 4 MG/ML VIAL IV PRN (11:17)
[2019-01-02 14:42] VITALS: BP 108/74; PULSE 89; RESP 16
--- NOTE | 2019-01-02 14:49 | CONS ---
Assessment/Plan Assessment/Plan Hospital Course (Demo Recall) Alert, feels good Microbiology: Wound culture grew MRSA, repeat cx + Kleb, E coli, MRSA Antimicrobials: Truvada, Retrovir, Diflucan, Bactrim Physical examination: Well-developed well-nourished middle-aged man who is alert in no distress. Head atraumatic normocephalic sclera nonicteric neck is supple chest rise symmetrical breath sounds clear heart: S1-S2 abdomen soft bowel sounds present extremities without cyanosis. Skin: Patient has dressing over his left side of the abdomen and bilateral wound vacs to hips Assessment: 1. S/p ongoing fevers==> resolved after PICC dc'd 2. Fornier's gangrene and necrotizing fasciitis, status post multiple recurrent debridement ==> latest one on 12/08/18 by urology 3. AIDS===> CD4 12/13 143 4. Status post renal failure Plan: Remains stable, continue BAEZ and proph Rx, pending plastic surgery eval for skin graft Consultation Date/Type/Reason Admit Date/Time Nov 30, 2018 at 20:47 Initial Consult Date 12/02/18 Type of Consult id Requesting Provider: ROBIN TAVAREZ MD Date/Time of Note DATE: 01/02/19 TIME: 14:49 Exam/Review of Systems Exam Vitals Vital Signs Date Temp Pulse Resp B/P (MAP) Pulse Ox O2 O2 Flow FiO2 Time Delivery Rate 01/02/19 97.7 89 16 108/74 95 Room Air 14:42 (85) Intake and Output 01/01/19 01/01/19 01/02/19 1515:00 23:00 07:00 IntakeIntake Total 940 ml 480 ml OutputOutput Total 300 ml BalanceBalance 640 ml 480 ml Results Result Diagram: 12/31/18 1434 12/31/18 1434 Medications Medication Current Medications Ondansetron HCl (Zofran Inj) 4 mg Q6H PRN IV NAUSEA AND/OR VOMITING Last administered on 12/11/18at 17:52; Admin Dose 4 MG; Start 11/30/18 at 21:00 Acetaminophen (Tylenol Liquid) 650 mg Q6H PRN PO PAIN LEVEL 1-3 OR FEVER Last administered on 12/14/18at 01:51; Admin Dose 650 MG; Start 11/30/18 at 21:00 Emtricitabine/ Tenofovir (Truvada) 1 tab DAILY PO Last administered on 01/02/19 08:46; Admin Dose 1 TAB; Start 12/06/18 at 09:00 Sodium Hypochlorite (Dakins Diluted ()) 1 applic DAILY TP Last administered on 01/02/19 08:46; Admin Dose 1 APPLIC; Start 12/06/18 at 09:00 Prednisolone Acetate (Pred-Forte 1%) 1 drop DAILY LEFT EYE Last administered on 01/02/19 08:47; Admin Dose 1 DROP; Start 12/05/18 at 19:00 Atropine Sulfate (Atropine 1% Oph) 1 drop BID LEFT EYE Last administered on 01/02/19 08:47; Admin Dose 1 DROP; Start 12/07/18 at 21:00 Guaifenesin (Robitussin Liquid Cup) 100 mg Q4H PRN PO COUGH Last administered on 12/05/18 20:07; Admin Dose 100 MG; Start 12/05/18 at 19:00 Lactulose (Enulose) 20 gm DAILY PRN PO CONSTIPATION Last administered on 12/07/18 17:07; Admin Dose 20 GM; Start 12/07/18 at 16:00 Miscellaneous Information (Pending [facility] Order For Wound Care) 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 PRN XX WOUND CARE; Start 12/08/18 at 02:30 Multivitamins/ Minerals (Theragran-M) 1 tab DAILY PO Last administered on 01/02/19 08:45; Admin Dose 1 TAB; Start 12/09/18 at 09:00 Ascorbic Acid (Vitamin C) 500 mg BID PO Last administered on 01/02/19 08:46; Admin Dose 500 MG; Start 12/09/18 at 09:00 Zinc Sulfate (Zinc Sulfate) 220 mg DAILY PO Last administered on 01/02/19 08:45; Admin Dose 220 MG; Start 12/09/18 at 09:00 Ibuprofen (Motrin) 400 mg Q6H PRN PO MILD PAIN(1-3) OR TEMP>38C Last adminis tered on 12/12/18 08:39; Admin Dose 400 MG; Start 12/10/18 at 21:00 Trimethoprim/ Sulfamethoxazole (Bactrim (Ds)) 1 tab DAILY PO Last administered on 01/02/19 08:45; Admin Dose 1 TAB; Start 12/12/18 at 12:00 Alteplase, Recombinant (Cathflo (Activase)) 2 mg MAY REPEAT X1 PRN CATHETER IF CATHETER REMAINS OCCULUDED Last administered on 12/12/18 18:04; Admin Dose 2 MG; Start 12/12/18 at 14:30 Acetaminophen/ Hydrocodone Bitart ([place] (5/325)) 1 tab Q4H PRN PO MODERATE PAIN LEVEL 4-6 Last administered on 01/02/19 10:08; Admin Dose 1 TAB; Start 12/12/18 at 15:00 Fluconazole (Diflucan) 100 mg DAILY PO Last administered on 01/02/19 08:45; Admin Dose 100 MG; Start 12/13/18 at 11:30 Morphine Sulfate (morphine) 4 mg DAILY PRN IV SEVERE PAIN LEVEL 7-10 Last administered on 01/02/19 11:17; Admin Dose 4 MG; Start 12/16/18 at 15:30 Zidovudine (Retrovir) 300 mg BID PO Last administered on 01/02/19 08:45; Admin Dose 300 MG; Start 12/21/18 at 21:00 Calcium Carbonate (Tums) 500 mg Q6H PRN PO DISTENSION/GAS/BLOATING Last administered on 12/24/18 06:29; Admin Dose 500 MG; Start 12/23/18 at 13:00 Lactobacillus Acidophilus/ Rhamnosus (Culturelle) 1 cap BID PO Last administered on 01/02/19 08:45; Admin Dose 1 CAP; Start 12/26/18 at 09:00 Famotidine (Pepcid) 20 mg DAILY PO Last administered on 01/02/19 08:45; Admin Dose 20 MG; Start 12/26/18 at 09:00 Morphine Sulfate (morphine) 1 mg Q4H PRN IV MOD TO SEVERE PAIN Last administered on 01/02/19 09:01; Admin Dose 1 MG; Start 12/26/18 at 14:30 Zolpidem Tartrate (Ambien) 5 mg HS MAY REPEAT X 1 PRN PO INSOMNIA Last administered on 01/02/19 01:42; Admin Dose 5 MG; Start 12/31/18 at 02:30 Enoxaparin Sodium (Lovenox) 40 mg DAILY SC ; Start 01/03/19 at 09:00 CRYSTAL RAMIREZ NP Jan 02, 2019 14:49
[2019-01-02 20:00] VITALS: BP 102/60; PULSE 91; RESP 16
[2019-01-03 01:27] VITALS: BP 103/61; PULSE 80; RESP 20
[2019-01-03] MEDS: ZOLPIDEM 5 MG TAB PO PRN (01:37)
[2019-01-03 08:21] VITALS: BP 88/60; PULSE 77; RESP 18
[2019-01-03] MEDS: ZIDOVUDINE 300 MG TAB PO SCH ×2 (08:56→21:14)
[2019-01-03] MEDS: ASCORBIC ACID 500 MG TAB PO SCH ×2 (08:57→21:14)
[2019-01-03] MEDS: TRIMETHOPRIM/SULFAMETHOX (DS) TAB PO SCH (08:57)
[2019-01-03] MEDS: MULTIVITAMINS/MINERALS TAB PO SCH (08:57)
[2019-01-03] MEDS: LACTOBACILLUS RHAMNOSUS CAP PO SCH ×2 (08:57→21:14)
[2019-01-03] MEDS: EMTRICITABINE/TENOFOVIR TAB PO SCH (08:57)
[2019-01-03] MEDS: FAMOTIDINE 20 MG TAB PO SCH (08:57)
[2019-01-03] MEDS: ZINC SULFATE 220 MG CAP PO SCH (08:57)
[2019-01-03] MEDS: FLUCONAZOLE 100 MG TAB PO SCH (08:57)
[2019-01-03] MEDS: PREDNISOLONE ACET 1% 5 ML OPH LEFT EYE SCH (08:58)
[2019-01-03] MEDS: ATROPINE 1% 5 ML OPH LEFT EYE SCH ×2 (08:58→21:13)
[2019-01-03] MEDS: DAKINS 0.0125%(1/40) 473 ML SOLUTION TP SCH ×3 (09:00→21:16)
[2019-01-03] MEDS: ENOXAPARIN 40 MG/0.4 ML SYG SC SCH ×2 (09:00→09:02)
[2019-01-03] MEDS: morphine 4 MG/ML VIAL IV PRN (09:56)
--- NOTE | 2019-01-03 12:41 | CONS ---
Assessment/Plan Assessment/Plan Hospital Course (Demo Recall) All noted, no acute changes Microbiology: Wound culture grew MRSA, repeat cx + Kleb, E coli, MRSA====> treated Antimicrobials: Truvada, Retrovir, Diflucan, Bactrim Physical examination: Well-developed well-nourished middle-aged man who is alert in no distress. Head atraumatic normocephalic sclera nonicteric neck is supple chest rise symmetrical breath sounds clear heart: S1-S2 abdomen soft bowel sounds present extremities without cyanosis. Skin: Patient has dressing over his left side of the abdomen and bilateral wound vacs to hips Assessment: 1. S/p ongoing fevers==> resolved after PICC dc'd 2. Fornier's gangrene and necrotizing fasciitis, status post multiple recurrent debridement ==> latest one on 12/08/18 by urology 3. AIDS===> CD4 12/13 143 4. Status post renal failure Plan: Remains stable, continue BAEZ and proph Rx, pending plastic surgery eval for skin graft Consultation Date/Type/Reason Admit Date/Time Nov 30, 2018 at 20:47 Initial Consult Date 12/02/18 Type of Consult id Requesting Provider: ROBIN TAVAREZ MD Date/Time of Note DATE: 01/03/19 TIME: 12:40 Exam/Review of Systems Exam Vitals Vital Signs Date Temp Pulse Resp B/P (MAP) Pulse Ox O2 O2 Flow FiO2 Time Delivery Rate 01/03/19 98.0 77 18 88/60 (69) 96 08:21 01/02/19 Room Air 14:42 Intake and Output 01/02/19 01/02/19 01/03/19 1515:00 23:00 07:00 IntakeIntake Total 360 ml 360 ml 480 ml BalanceBalance 360 ml 360 ml 480 ml Results Result Diagram: 12/31/18 1434 12/31/18 1434 Medications Medication Current Medications Ondansetron HCl (Zofran Inj) 4 mg Q6H PRN IV NAUSEA AND/OR VOMITING Last administered on 12/11/18at 17:52; Admin Dose 4 MG; Start 11/30/18 at 21:00 Acetaminophen (Tylenol Liquid) 650 mg Q6H PRN PO PAIN LEVEL 1-3 OR FEVER Last administered on 7/17/19at 01:51; Admin Dose 650 MG; Start 11/30/18 at 21:00 Emtricitabine/ Tenofovir (Truvada) 1 tab DAILY PO Last administered on 01/03/19 08:57; Admin Dose 1 TAB; Start 12/06/18 at 09:00 Sodium Hypochlorite (Dakins Diluted ()) 1 applic DAILY TP Last administered on 01/03/19 09:00; Admin Dose 1 APPLIC; Start 12/06/18 at 09:00 Prednisolone Acetate (Pred-Forte 1%) 1 drop DAILY LEFT EYE Last administered on 01/03/19 08:58; Admin Dose 1 DROP; Start 12/05/18 at 19:00 Atropine Sulfate (Atropine 1% Oph) 1 drop BID LEFT EYE Last administered on 01/03/19 08:58; Admin Dose 1 DROP; Start 12/07/18 at 21:00 Guaifenesin (Robitussin Liquid Cup) 100 mg Q4H PRN PO COUGH Last administered on 12/05/18 20:07; Admin Dose 100 MG; Start 12/05/18 at 19:00 Lactulose (Enulose) 20 gm DAILY PRN PO CONSTIPATION Last administered on 12/07/18 17:07; Admin Dose 20 GM; Start 12/07/18 at 16:00 Miscellaneous Information (Pending [facility] Order For Wound Care) 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 PRN XX WOUND CARE; Start 12/08/18 at 02:30 Multivitamins/ Minerals (Theragran-M) 1 tab DAILY PO Last administered on 01/03/19 08:57; Admin Dose 1 TAB; Start 12/09/18 at 09:00 Ascorbic Acid (Vitamin C) 500 mg BID PO Last administered on 01/03/19 08:57; Admin Dose 500 MG; Start 12/09/18 at 09:00 Zinc Sulfate (Zinc Sulfate) 220 mg DAILY PO Last administered on 01/03/19 08:57; Admin Dose 220 MG; Start 12/09/18 at 09:00 Ibuprofen (Motrin) 400 mg Q6H PRN PO MILD PAIN(1-3) OR TEMP>38C Last administered on 12/12/18 08:39; Admin Dose 400 MG; Start 12/10/18 at 21:00 Trimethoprim/ Sulfamethoxazole (Bactrim (Ds)) 1 tab DAILY PO Last administered on 01/03/19 08:57; Admin Dose 1 TAB; Start 12/12/18 at 12:00 Alteplase, Recombinant (Cathflo (Activase)) 2 mg MAY REPEAT X1 PRN CATHETER IF CATHETER REMAINS OCCULUDED Last administered on 12/12/18 18:04; Admin Dose 2 MG; Start 12/12/18 at 14:30 Acetaminophen/ Hydrocodone Bitart ([place] (5/325)) 1 tab Q4H PRN PO MODERATE PAIN LEVEL 4-6 Last administered on 01/02/19 10:08; Admin Dose 1 TAB; Start 12/12/18 at 15:00 Fluconazole (Diflucan) 100 mg DAILY PO Last administered on 01/03/19 08:57; Adm in Dose 100 MG; Start 12/13/18 at 11:30 Morphine Sulfate (morphine) 4 mg DAILY PRN IV SEVERE PAIN LEVEL 7-10 Last administered on 01/03/19 09:56; Admin Dose 4 MG; Start 12/16/18 at 15:30 Zidovudine (Retrovir) 300 mg BID PO Last administered on 01/03/19 08:56; Admin Dose 300 MG; Start 12/21/18 at 21:00 Calcium Carbonate (Tums) 500 mg Q6H PRN PO DISTENSION/GAS/BLOATING Last administered on 12/24/18 06:29; Admin Dose 500 MG; Start 12/23/18 at 13:00 Lactobacillus Acidophilus/ Rhamnosus (Culturelle) 1 cap BID PO Last administered on 01/03/19 08:57; Admin Dose 1 CAP; Start 12/26/18 at 09:00 Famotidine (Pepcid) 20 mg DAILY PO Last administered on 01/03/19 08:57; Admin Dose 20 MG; Start 12/26/18 at 09:00 Morphine Sulfate (morphine) 1 mg Q4H PRN IV MOD TO SEVERE PAIN Last administered on 01/02/19 22:37; Admin Dose 1 MG; Start 12/26/18 at 14:30 Zolpidem Tartrate (Ambien) 5 mg HS MAY REPEAT X 1 PRN PO INSOMNIA Last administered on 01/03/19 01:37; Admin Dose 5 MG; Start 12/31/18 at 02:30 Enoxaparin Sodium (Lovenox) 40 mg DAILY SC ; Start 01/03/19 at 09:00 CRYSTAL RAMIREZ NP Jan 03, 2019 12:41
[2019-01-03 15:30] VITALS: BP 97/64; PULSE 81; RESP 17
[2019-01-03] MEDS: morphine 2 MG INJ IV PRN ×2 (15:32→21:16)
--- NOTE | 2019-01-03 16:21 | CONS ---
Consultation Date/Type/Reason Admit Date/Time Nov 30, 2018 at 20:47 Initial Consult Date 01/03/2019 Type of Consult Plastic and Reconstructive Surgery Reason for Consultation 42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 He underwent incision and drainage of the abdominal wall all the way up to the lower ribs on the left side and also of the left thigh and right inguinal area and debridement of the scrotum and perineal area. The wounds are getting better, but not heal ing. He underwent debridement and incision and drainage of a right buttock abscess. The culture from the buttock grew MRSA. He is doing better, but not healing. The abdominal wound as well as a scrotal wound are looking healthy and red, but not healing. Requesting Provider: TYE PETIT Date/Time of Note DATE: 01/03/19 TIME: 15:40 24 HR Interval Summary Free Text/Dictation 42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 He underwent incision and drainage of the abdominal wall all the way up to the lower ribs on the left side and also of the left thigh and right inguinal area and debridement of the scrotum and perineal area. The wounds are getting better, but not healing. He underwent debridement and incision and drainage of a right buttock abscess. The culture from the buttock grew MRSA. He is doing better, but not healing. The abdominal wound as well as a scrotal wound are looking healthy and red, but not healing. PMH is consistent with HIV positive, Hepatitis B positive, On isolation for MRSA right buttock abscess O/E: Well oriented, coherent and cooperative gentleman, in NAD. Major ulcers noted that require reconstructive surgical intervention are the four below. 1. Lateral Left Thigh: 3.5 cm. X 25 cm. 2. Lateral Right Thigh: 5 cm. X 5.0 cm. 3. Left Scrotum: 4.5 cm.X 15 cm.: more than half of scrotum is missing with complete exposure of both testicles. Left Abdomen: 4.5 cm. X 15 cm.: oblique from the medial groin to lateral ribs Assessment: Four Major ulcers, Stage III, Non-healing, Post Nida Gangrene HIV positive, Hepatitis B Positive, MRSA positive in wounds Plan: Patient requires a surgical reconstructive plan including Excision, Debridement, and Fasciocutaneous flap reconstruction under general anesthesia. This was reviewed in detail with the patient with his both parents present. Alternatives, pre. and postoperative care and planning along with postoperative restrictions were reviewed and their questions were answered to their satisfaction with the Neema Granados present. They understand all above, agree, and wish to proceed as above. I was able to secure an O.R. time for patient for tomorrow at about 11:00 a.m. In light of history and presence of MRSA, along with the mentioned comorbidities, patient will need preoperative dressing changes using 1/40 diluted Dakin's solution and also after the first dressing change in about 5 days postop., he will need to be considered for transfer to a [facility] for at least one month. Subjective hx not possible: other (Subjective exam covered under Free Text ab ove) Detailed Summary Additional Comments 42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 He underwent incision and drainage of the abdominal wall all the way up to the lower ribs on the left side and also of the left thigh and right inguinal area and debridement of the scrotum and perineal area. The wounds are getting better, but not healing. He underwent debridement and incision and drainage of a right buttock abscess. The culture from the buttock grew MRSA. He is doing better, but not healing. The abdominal wound as well as a scrotal wound are looking healthy and red, but not healing. PMH is consistent with HIV positive, Hepatitis B positive, On isolation for MRSA right buttock abscess O/E: Well oriented, coherent and cooperative gentleman, in NAD. Major ulcers noted that require reconstructive surgical intervention are the four below. 1. Lateral Left Thigh: 3.5 cm. X 25 cm. 2. Lateral Right Thigh: 5 cm. X 5.0 cm. 3. Left Scrotum: 4.5 cm.X 15 cm.: more than half of scrotum is missing with complete exposure of both testicles. Left Abdomen: 4.5 cm. X 15 cm.: oblique from the medial groin to lateral ribs Assessment: Four Major ulcers, Stage III, Non-healing, Post Nida Gangrene HIV positive, Hepatitis B Positive, MRSA positive in wounds Plan: Patient requires a surgical reconstructive plan including Excision, Debridement, and Fasciocutaneous flap reconstruction under general anesthesia. This was revi ewed in detail with the patient with his both parents present. Alternatives, pre. and postoperative care and planning along with postoperative restrictions were reviewed and their questions were answered to their satisfaction with the Neema Granados present. They understand all above, agree, and wish to proceed as above. Exam/Review of Systems Exam Vitals Vital Signs Date Temp Pulse Resp B/P (MAP) Pulse Ox O2 O2 Flow FiO2 Time Delivery Rate 01/03/19 98.0 77 18 88/60 (69) 96 08:21 01/02/19 Room Air 14:42 Intake and Output 01/02/19 01/02/19 01/03/19 1515:00 23:00 07:00 IntakeIntake Total 360 ml 360 ml 480 ml BalanceBalance 360 ml 360 ml 480 ml Results Result Diagram: 12/31/18 1434 12/31/18 1434 Medications Medication Current Medications Ondansetron HCl (Zofran Inj) 4 mg Q6H PRN IV NAUSEA AND/OR VOMITING Last admin istered on 12/11/18 17:52; Admin Dose 4 MG; Start 11/30/18 at 21:00 Acetaminophen (Tylenol Liquid) 650 mg Q6H PRN PO PAIN LEVEL 1-3 OR FEVER Last administered on 12/14/18 01:51; Admin Dose 650 MG; Start 11/30/18 at 21:00 Emtricitabine/ Tenofovir (Truvada) 1 tab DAILY PO Last administered on 01/03/19 08:57; Admin Dose 1 TAB; Start 12/06/18 at 09:00 Sodium Hypochlorite (Dakins Diluted (40)) 1 applic DAILY TP Last administered on 01/03/19 09:00; Admin Dose 1 APPLIC; Start 12/06/18 at 09:00 Prednisolone Acetate (Pred-Forte 1%) 1 drop DAILY LEFT EYE Last administered on 01/03/19 08:58; Admin Dose 1 DROP; Start 12/05/18 at 19:00 Atropine Sulfate (Atropine 1% Oph) 1 drop BID LEFT EYE Last administered on 01/03/19 08:58; Admin Dose 1 DROP; Start 12/07/18 at 21:00 Guaifenesin (Robitussin Liquid Cup) 100 mg Q4H PRN PO COUGH Last administered on 12/05/18 20:07; Admin Dose 100 MG; Start 12/05/18 at 19:00 Lactulose (Enulose) 20 gm DAILY PRN PO CONSTIPATION Last administered on 12/07/18 17:07; Admin Dose 20 GM; Start 12/07/18 at 16:00 [facility] 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 PRN XX WOUND CARE; Start 12/08/18 at 02:30 Multivitamins/ Minerals (Theragran-M) 1 tab DAILY PO Last administered on 01/03/19 08:57; Admin Dose 1 TAB; Start 12/09/18 at 09:00 Ascorbic Acid (Vitamin C) 500 mg BID PO Last administered on 01/03/19 08:57; Admin Dose 500 MG; Start 12/09/18 at 09:00 Zinc Sulfate (Zinc Sulfate) 220 mg DAILY PO Last administered on 01/03/19 08:57; Admin Dose 220 MG; Start 12/09/18 at 09:00 Ibuprofen (Motrin) 400 mg Q6H PRN PO MILD PAIN(1-3) OR TEMP>38C Last administered on 12/12/18 08:39; Admin Dose 400 MG; Start 12/10/18 at 21:00 Trimethoprim/ Sulfamethoxazole (Bactrim (Ds)) 1 tab DAILY PO Last administered on 01/03/19 08:57; Admin Dose 1 TAB; Start 12/12/18 at 12:00 Alteplase, Recombinant (Cathflo (Activase)) 2 mg MAY REPEAT X1 PRN CATHETER IF CATHETER REMAINS OCCULUDED Last administered on 12/12/18 18:04; Admin Dose 2 MG; Start 12/12/18 at 14:30 Acetaminophen/ Hydrocodone Bitart ([place] (5/325)) 1 tab Q4H PRN PO MODERATE PAIN LEVEL 4-6 Last administered on 01/02/19 10:08; Admin Dose 1 TAB; Start 12/12/18 at 15:00 Fluconazole (Diflucan) 100 mg DAILY PO Last administered on 01/03/19 08:57; Admin Dose 100 MG; Start 12/13/18 at 11:30 Morphine Sulfate (morphine) 4 mg DAILY PRN IV SEVERE PAIN LEVEL 7-10 Last administered on 01/03/19 09:56; Admin Dose 4 MG; Start 12/16/18 at 15:30 Zidovudine (Retrovir) 300 mg BID PO Last administered on 01/03/19 08:56; Admin Dose 300 MG; Start 12/21/18 at 21:00 Calcium Carbonate (Tums) 500 mg Q6H PRN PO DISTENSION/GAS/BLOATING Last administered on 12/24/18 06:29; Admin Dose 500 MG; Start 12/23/18 at 13:00 Lactobacillus Acidophilus/ Rhamnosus (Culturelle) 1 cap BID PO Last a dministered on 01/03/19 08:57; Admin Dose 1 CAP; Start 12/26/18 at 09:00 Famotidine (Pepcid) 20 mg DAILY PO Last administered on 01/03/19 08:57; Admin Dose 20 MG; Start 12/26/18 at 09:00 Morphine Sulfate (morphine) 1 mg Q4H PRN IV MOD TO SEVERE PAIN Last administered on 01/03/19 15:32; Admin Dose 1 MG; Start 12/26/18 at 14:30 Zolpidem Tartrate (Ambien) 5 mg HS MAY REPEAT X 1 PRN PO INSOMNIA Last administered on 01/03/19 01:37; Admin Dose 5 MG; Start 12/31/18 at 02:30 Enoxaparin Sodium (Lovenox) 40 mg DAILY SC ; Start 01/03/19 at 09:00 TARAS ELLINGTON MD Jan 03, 2019 16:11
--- NOTE | 2019-01-03 16:35 | PN ---
Date/Time of Note Date/Time of Note DATE: 01/03/19 TIME: 16:33 Assessment/Plan VTE Prophylaxis Risk score (from Ns)>0 risk: 1 SCD applied (from [facility] No SCD contraindicated: low risk/ambulating Pharmacological prophylaxis: NA/contraindicated Pharm contraindication: surgical contra Lines/Catheters IV C[facility] Type [facility]from [facility] Saline Lock Urinary Cath still in place: No Assessment/Plan Hospital Course A/P Nida gangrene: sp debridement*3 . Stable, for skin grafting. Continue wound care offloading may need specialty bed. -Low perioperative risk, risk benefit ratio weighs in favor of proceeding forward to surgery from medical standpoint. HIV/ AIDS last CD4 count 143, on therapy. Patient does not wish to share this info with family Hepatitis B Past tobacco Past drugs: Cocaine/ marijuana Abn LFTs Past alcoholism Ac Encephalopathy stable/resolved Acute renal failure, resolved Postop transient respiratory failure extubated promptly SIADH/hyponatremia stable Left eye blindness PICC line associated infection? Diarrhea, likely Colace MiraLAX associated. Benign, observe; ro c diff Failure to thrive, would benefit from SNF/ rehab for wound care Adjustment disorder counseling if feasible S: 12/23 no distress. Sp multiple debridement; Has wound vacs. Wounds improved. Presently stable and fit for transfer to tertiary care for grafting. 12/24: Diarrhea but no abdominal pain or fever. On Colace MiraLAX. 12/25: No abd pain/ fever 01/02: No fever diarrhea. Frustrated awaiting assistance from plastic surgery options for skin graft. 01/03 no distress for surgery tomorrow. O: vss -cultures: MRSA, Klebsiella, E. coli PE no pallor reg ctab bs+ nt nd no r r g; dressed wounds no edema Result Diagram: 12/31/18 1434 12/31/18 1434 Exam/Review of Systems Exam Vitals Vital Signs Date Temp Pulse Resp B/P (MAP) Pulse Ox O2 O2 Flow FiO2 Time Delivery Rate 01/03/19 98.0 77 18 88/60 (69) 96 08:21 01/02/19 Room Air 14:42 Intake and Output 01/02/19 01/02/19 01/03/19 1515:00 23:00 07:00 IntakeIntake Total 360 ml 360 ml 480 ml BalanceBalance 360 ml 360 ml 480 ml Medications Medication Current Medications Ondansetron HCl (Zofran Inj) 4 mg Q6H PRN IV NAUSEA AND/OR VOMITING Last administered on 12/11/18 17:52; Admin Dose 4 MG; Start 11/30/18 at 21:00 Acetaminophen (Tylenol Liquid) 650 mg Q6H PRN PO PAIN LEVEL 1-3 OR FEVER Last administered on 12/14/18 01:51; Admin Dose 650 MG; Start 11/30/18 at 21:00 Emtricitabine/ Tenofovir (Truvada) 1 tab DAILY PO Last administered on 01/03/19 08:57; Admin Dose 1 TAB; Start 12/06/18 at 09:00 Sodium Hypochlorite (Dakins Diluted ()) 1 applic DAILY TP Last administered on 01/03/19 09:00; Admin Dose 1 APPLIC; Start 12/06/18 at 09:00 Prednisolone Acetate (Pred-Forte 1%) 1 drop DAILY LEFT EYE Last administered on 01/03/19 08:58; Admin Dose 1 DROP; Start 12/05/18 at 19:00 Atropine Sulfate (Atropine 1% Oph) 1 drop BID LEFT EYE Last administered on 01/03/19 08:58; Admin Dose 1 DROP; Start 12/07/18 at 21:00 Guaifenesin (Robitussin Liquid Cup) 100 mg Q4H PRN PO COUGH Last administered on 12/05/18 20:07; Admin Dose 100 MG; Start 12/05/18 at 19:00 Lactulose (Enulose) 20 gm DAILY PRN PO CONSTIPATION Last administered on 12/07/18 17:07; Admin Dose 20 GM; Start 12/07/18 at 16:00 [facility] 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 PRN XX WOUND CARE; Start 12/08/18 at 02:30 Multivitamins/ Minerals (Theragran-M) 1 tab DAILY PO Last administered on 01/03/19 08:57; Admin Dose 1 TAB; Start 12/09/18 at 09:00 Ascorbic Acid (Vitamin C) 500 mg BID PO Last administered on 01/03/19 08:57; Admin Dose 500 MG; Start 12/09/18 at 09:00 Zinc Sulfate (Zinc Sulfate) 220 mg DAILY PO Last administered on 01/03/19 08:57; Admin Dose 220 MG; Start 12/09/18 at 09:00 Ibuprofen (Motrin) 400 mg Q6H PRN PO MILD PAIN(1-3) OR TEMP>38C Last administered on 12/12/18 08:39; Admin Dose 400 MG; Start 12/10/18 at 21:00 Trimethoprim/ Sulfamethoxazole (Bactrim (Ds)) 1 tab DAILY PO Last administered on 01/03/19 08:57; Admin Dose 1 TAB; Start 12/12/18 at 12:00 Alteplase, Recombinant (Cathflo (Activase)) 2 mg MAY REPEAT X1 PRN CATHETER IF CATHETER REMAINS OCCULUDED Last administered on 12/12/18 18:04; Admin Dose 2 MG; Start 12/12/18 at 14:30 Acetaminophen/ Hydrocodone Bitart ([place] (5/325)) 1 tab Q4H PRN PO MODERATE PAIN LEVEL 4-6 Last administered on 01/02/19 10:08; Admin Dose 1 TAB; Start 12/12/18 at 15:00 Fluconazole (Diflucan) 100 mg DAILY PO Last administered on 01/03/19 08:57; Admin Dose 100 MG; Start 12/13/18 at 11:30 Morphine Sulfate (morphine) 4 mg DAILY PRN IV SEVERE PAIN LEVEL 7-10 Last administered on 01/03/19 09:56; Admin Dose 4 MG; Start 12/16/18 at 15:30 Zidovudine (Retrovir) 300 mg BID PO Last administered on 01/03/19 08:56; Admin Dose 300 MG; Start 12/21/18 at 21:00 Calcium Carbonate (Tums) 500 mg Q6H PRN PO DISTENSION/GAS/BLOATING Last administered on 12/24/18 06:29; Admin Dose 500 MG; Start 12/23/18 at 13:00 Lactobacillus Acidophilus/ Rhamnosus (Culturelle) 1 cap BID PO Last administered on 01/03/19 08:57; Admin Dose 1 CAP; Start 12/26/18 at 09:00 Famotidine (Pepcid) 20 mg DAILY PO Last administered on 01/03/19 08:57; Admin Dose 20 MG; Start 12/26/18 at 09:00 Morphine Sulfate (morphine) 1 mg Q4H PRN IV MOD TO SEVERE PAIN Last administered on 01/03/19at 15:32; Admin Dose 1 MG; Start 12/26/18 at 14:30 Zolpidem Tartrate (Ambien) 5 mg HS MAY REPEAT X 1 PRN PO INSOMNIA Last administered on 01/03/19at 01:37; Admin Dose 5 MG; Start 12/31/18 at 02:30 Enoxaparin Sodium (Lovenox) 40 mg DAILY SC ; Start 01/03/19 at 09:00 YANELY MOYA MD Jan 03, 2019 16:35
[2019-01-03] MEDS: HYDROCODONE/APAP (10/325) TAB PO PRN (18:05)
[2019-01-03 19:51] VITALS: BP 96/61; PULSE 90; RESP 16
[2019-01-04] VITALS (17 sets, daily range): BP systolic 88–128; BP diastolic 51–79; PULSE 69–112; RESP 13–25
[2019-01-04] MEDS: morphine 2 MG INJ IV PRN ×2 (01:57→06:05)
[2019-01-04] MEDS: DAKINS 0.0125%(1/40) 473 ML SOLUTION TP SCH ×6 (01:57→20:56)
[2019-01-04] MEDS: FAMOTIDINE 20 MG TAB PO SCH (08:03)
[2019-01-04] MEDS: TRIMETHOPRIM/SULFAMETHOX (DS) TAB PO SCH (08:03)
[2019-01-04] MEDS: FLUCONAZOLE 100 MG TAB PO SCH (08:03)
[2019-01-04] MEDS: LACTOBACILLUS RHAMNOSUS CAP PO SCH ×2 (08:03→21:06)
[2019-01-04] MEDS: EMTRICITABINE/TENOFOVIR TAB PO SCH (08:04)
[2019-01-04] MEDS: ZIDOVUDINE 300 MG TAB PO SCH ×2 (08:04→21:06)
[2019-01-04] MEDS: ASCORBIC ACID 500 MG TAB PO SCH ×2 (08:04→21:07)
[2019-01-04] MEDS: MULTIVITAMINS/MINERALS TAB PO SCH (08:04)
[2019-01-04] MEDS: ZINC SULFATE 220 MG CAP PO SCH (08:05)
[2019-01-04] MEDS: PREDNISOLONE ACET 1% 5 ML OPH LEFT EYE SCH (09:33)
[2019-01-04] MEDS: ATROPINE 1% 5 ML OPH LEFT EYE SCH ×2 (09:33→21:07)
--- NOTE | 2019-01-04 10:34 | HPN ---
Date/Time of Note Date/Time of Note DATE: 01/04/19 TIME: 10:34 Interval H&P Admission Note Pt. seen H&P reviewed: No system changes TARAS ELLINGTON MD Jan 04, 2019 10:34
[2019-01-04] MEDS ORDERED: SOD CHLORIDE 0.9% 250 ML IV* ONE (10:44)
--- NOTE | 2019-01-04 10:54 | PREAC ---
Date/Time of Note Date/Time of Note DATE: 01/04/19 TIME: 10:50 Anesthesia Eval and Record Evaluation Time Pre-Procedure Interview DATE: 01/04/19 TIME: 10:50 Age 43 Sex male NPO: 8 hrs Preoperative diagnosis Lt/ Rt thigh, abdominal and scrotal skin necrosis Planned procedure Lt/ Rt thighs, abdominal and scrotal flap reconstruction Past Medical History Past Medical History: Includes Cardio: HTN, Dyslipidemia Infection(s): HIV, Hep B Surgery & Anesthesia Issues No known issue Meds Anticoagulation: No Beta Lynne within 24 hr: No Reason Beta Lynne not given: Pt. not on B-Lynne Reported Medications Atropine Sulfate/0.9 %Sod Chlr (Atropine 0.01%-Ns Eye Drops) 10 Ml Drops, 1 ML OP BID, #1 12/05/18 Prednisolone Acetate* (Pred Forte*) 5 Ml Susp, 1 DROP LEFT EYE Q1HOUR, EA 12/04/18 Current Medications Ondansetron HCl (Zofran Inj) 4 mg Q6H PRN IV NAUSEA AND/OR VOMITING Last administered on 12/11/18at 17:52; Admin Dose 4 MG; Start 11/30/18 at 21:00 Acetaminophen (Tylenol Liquid) 650 mg Q6H PRN PO PAIN LEVEL 1-3 OR FEVER Last administered on 12/14/18at 01:51; Admin Dose 650 MG; Start 11/30/18 at 21:00 Emtricitabine/ Tenofovir (Truvada) 1 tab DAILY PO Last administered on 01/03/19 08:57; Admin Dose 1 TAB; Start 12/06/18 at 09:00 Prednisolone Acetate (Pred-Forte 1%) 1 drop DAILY LEFT EYE Last administered on 01/04/19 09:33; Admin Dose 1 DROP; Start 12/05/18 at 19:00 Atropine Sulfate (Atropine 1% Oph) 1 drop BID LEFT EYE Last administered on 01/04/19 09:33; Admin Dose 1 DROP; Start 12/07/18 at 21:00 Guaifenesin (Robitussin Liquid Cup) 100 mg Q4H PRN PO COUGH Last administered on 12/05/18 20:07; Admin Dose 100 MG; Start 12/05/18 at 19:00 Lactulose (Enulose) 20 gm DAILY PRN PO CONSTIPATION Last administered on 12/07/18 17:07; Admin Dose 20 GM; Start 12/07/18 at 16:00 [facility] 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 PRN XX WOUND CARE; Start 12/08/18 at 02:30 Multivitamins/ Minerals (Theragran-M) 1 tab DAILY PO Last administered on 01/03/19 08:57; Admin Dose 1 TAB; Start 12/09/18 at 09:00 Ascorbic Acid (Vitamin C) 500 mg BID PO Last administered on 01/03/19 21:14; Admin Dose 500 MG; Start 12/09/18 at 09:00 Zinc Sulfate (Zinc Sulfate) 220 mg DAILY PO Last administered on 01/03/19 08:57; Admin Dose 220 MG; Start 12/09/18 at 09:00 Ibuprofen (Motrin) 400 mg Q6H PRN PO MILD PAIN(1-3) OR TEMP>38C Last admini stered on 12/12/18 08:39; Admin Dose 400 MG; Start 12/10/18 at 21:00 Trimethoprim/ Sulfamethoxazole (Bactrim (Ds)) 1 tab DAILY PO Last administered on 01/03/19 08:57; Admin Dose 1 TAB; Start 12/12/18 at 12:00 Alteplase, Recombinant (Cathflo (Activase)) 2 mg MAY REPEAT X1 PRN CATHETER IF CATHETER REMAINS OCCULUDED Last administered on 12/12/18 18:04; Admin Dose 2 MG; Start 12/12/18 at 14:30 Fluconazole (Diflucan) 100 mg DAILY PO Last administered on 01/03/19 08:57; Admin Dose 100 MG; Start 12/13/18 at 11:30 Morphine Sulfate (morphine) 4 mg DAILY PRN IV SEVERE PAIN LEVEL 7-10 Last administered on 01/03/19 09:56; Admin Dose 4 MG; Start 12/16/18 at 15:30 Zidovudine (Retrovir) 300 mg BID PO Last administered on 01/03/19 21:14; Admin Dose 300 MG; Start 12/21/18 at 21:00 Calcium Carbonate (Tums) 500 mg Q6H PRN PO DISTENSION/GAS/BLOATING Last administered on 12/24/18 06:29; Admin Dose 500 MG; Start 12/23/18 at 13:00 Lactobacillus Acidophilus/ Rhamnosus (Culturelle) 1 cap BID PO Last a dministered on 01/03/19 21:14; Admin Dose 1 CAP; Start 12/26/18 at 09:00 Famotidine (Pepcid) 20 mg DAILY PO Last administered on 01/03/19 08:57; Admin Dose 20 MG; Start 12/26/18 at 09:00 Morphine Sulfate (morphine) 1 mg Q4H PRN IV MOD TO SEVERE PAIN Last administered on 01/04/19 06:05; Admin Dose 1 MG; Start 12/26/18 at 14:30 Zolpidem Tartrate (Ambien) 5 mg HS MAY REPEAT X 1 PRN PO INSOMNIA Last administered on 01/03/19 01:37; Admin Dose 5 MG; Start 12/31/18 at 02:30 Enoxaparin Sodium (Lovenox) 40 mg DAILY SC ; Start 01/06/19 at 09:00 Acetaminophen/ Hydrocodone Bitart ([place] (10/325)) 1 tab Q4H PRN PO MODERATE PAIN LEVEL 4-6 Last administered on 01/03/19 18:05; Admin Dose 1 TAB; Start 01/03 at 17:00 Sodium Hypochlorite (Dakins Diluted (1/40)) 1 applic Q4 TP Last administered on 01/04/19 06:10; Admin Dose 1 APPLIC; Start 01/03/19 at 17:00 Meds reviewed: Yes Allergies Coded Allergies: No Known Allergy (Unverified , 01/31/18) Allergies Reviewed: Yes Labs/Studies Labs Reviewed: Reviewed by anesthesiologist Result Diagram: 01/04/19 1000 01/04/19 1000 Laboratory Tests 01/04/19 10:00 Blood Bank Test 01/04/19 10:44 Blood Product Summary Counts test: N/A Studies: ECG Pre-procedure Exam Last vitals Vital Signs Date Temp Pulse Resp B/P (MAP) Pulse Ox O2 O2 Flow FiO2 Time Delivery Rate 01/04/19 98.0 78 16 105/55 96 01:57 (72) 01/02/19 Room Air 14:42 Airway: Adequate mouth opening, Adequate thyromental dist Mallampati: Mallampati II Teeth: Normal Lung: Normal Heart: Normal ASA Physical Status ASA physical status: 3 Emergency: None Planned Anesthetic General/MAC: LMA Planned Pain Management Parenteral pain med, Local by surgeon Pre-operative Attestations Prior to commencing anesthesia and surgery, the patient was re-evaluated, there was verification of: *The patient's identity *The results of appropriate recent lab work and preoperative vital signs *The above evaluation not changing prior to induction *Anesthetic plan, risk benefits, alternative and complications discussed with patient/family; questions answered; patient/family understands, accepts and wishes to proceed. SHAQ RODRIGUEZ MD Jan 04, 2019 10:54
[2019-01-04] MEDS ORDERED: LIDOCAINE 1%/EPI 30 ML INJ ONE ×2 (10:59→14:08)
[2019-01-04] MEDS ORDERED: MUPIROCIN 2% 15 GM CR ONE (10:59)
[2019-01-04] MEDS ORDERED: BUPIVACAINE 0.25% (MPF) 30 ML INJ ONE ×2 (10:59→14:08)
[2019-01-04] MEDS ORDERED: GENTAMICIN 80 MG INJ ONE (11:00)
[2019-01-04] MEDS ORDERED: POLYMYXIN/BACITRACIN 1L IRRIG ONE (11:00)
--- NOTE | 2019-01-04 11:32 | CONS ---
Assessment/Plan Assessment/Plan Hospital Course (Demo Recall) No acute changes Microbiology: Wound culture grew MRSA, repeat cx + Kleb, E coli, MRSA====> treated Antimicrobials: Truvada, Retrovir, Diflucan, Bactrim Physical examination: Well-developed well-nourished middle-aged man who is alert in no distress. Head atraumatic normocephalic sclera nonicteric neck is supple chest rise symmetrical breath sounds clear heart: S1-S2 abdomen soft bowel sounds present extremities without cyanosis. Skin: Patient has dressing over his left side of the abdomen and bilateral wound vacs to hips Assessment: 1. S/p ongoing fevers==> resolved after PICC dc'd 2. Fornier's gangrene and necrotizing fasciitis, status post multiple recurrent debridement ==> latest one on 12/08/18 by urology 3. AIDS===> CD4 12/13 143 4. Status post renal failure Plan: Remains stable, continue BAEZ and proph Rx, pending skin graft Consultation Date/Type/Reason Admit Date/Time Nov 30, 2018 at 20:47 Initial Consult Date 12/02/18 Type of Consult id Requesting Provider: TYE PETIT Date/Time of Note DATE: 01/04/19 TIME: 11:31 Exam/Review of Systems Exam Vitals Vital Signs Date Temp Pulse Resp B/P (MAP) Pulse Ox O2 O2 Flow FiO2 Time Delivery Rate 01/04/19 97.5 69 18 94/60 (71) 93 08:30 01/02/19 Room Air 14:42 Intake and Output 01/03/19 01/03/19 01/04/19 1515:00 23:00 07:00 IntakeIntake Total 480 ml 1280 ml BalanceBalance 480 ml 1280 ml Results Result Diagram: 01/04/19 1000 01/04/19 1000 Results 24hrs Laboratory Tests Test 01/04/19 10:00 White Blood Count 4.1 L Red Blood Count 3.06 L Hemoglobin 8.8 L Hematocrit 27.8 L Mean Corpuscular Volume 90.8 Mean Corpuscular Hemoglobin 28.8 L Mean Corpuscular Hemoglobin Concent 31.7 L Red Cell Distribution Width 19.9 H Platelet Count 440 H Mean Platelet Volume 9.0 Immature Granulocytes % 0.200 Neutrophils % 59.4 Lymphocytes % 28.7 Monocytes % 9.2 Eosinophils % 1.5 Basophils % 1.0 Nucleated Red Blood Cells % 0.0 Immature Granulocytes # 0.010 Neutrophils # 2.4 Lymphocytes # 1.2 Monocytes # 0.4 Eosinophils # 0.1 Basophils # 0.0 Nucleated Red Blood Cells # 0.0 Prothrombin Time 12.6 Prothrombin Time Ratio 1.0 INR International Normalized Ratio 0.93 Sodium Level 137 Potassium Level 4.4 Chloride Level 103 Carbon Dioxide Level 30 Anion Gap 4 L Blood Urea Nitrogen 12 Creatinine 0.72 Est Glomerular Filtrat Rate mL/min > 60 Glucose Level 91 Calcium Level 8.9 Medications Medication Current Medications Ondansetron HCl (Zofran Inj) 4 mg Q6H PRN IV NAUSEA AND/OR VOMITING Last administered on 12/11/18 17:52; Admin Dose 4 MG; Start 11/30/18 at 21:00 Acetaminophen (Tylenol Liquid) 650 mg Q6H PRN PO PAIN LEVEL 1-3 OR FEVER Last administered on 12/14/18 01:51; Admin Dose 650 MG; Start 11/30/18 at 21:00 Emtricitabine/ Tenofovir (Truvada) 1 tab DAILY PO Last administered on 01/03/19 08:57; Admin Dose 1 TAB; Start 12/06/18 at 09:00 Prednisolone Acetate (Pred-Forte 1%) 1 drop DAILY LEFT EYE Last administered on 01/04/19 09:33; Admin Dose 1 DROP; Start 12/05/18 at 19:00 Atropine Sulfate (Atropine 1% Oph) 1 drop BID LEFT EYE Last administered on 01/04/19 09:33; Admin Dose 1 DROP; Start 12/07/18 at 21:00 Guaifenesin (Robitussin Liquid Cup) 100 mg Q4H PRN PO COUGH Last administered on 12/05/18 20:07; Admin Dose 100 MG; Start 12/05/18 at 19:00 Lactulose (Enulose) 20 gm DAILY PRN PO CONSTIPATION Last administered on 12/07/18 17:07; Admin Dose 20 GM; Start 12/07/18 at 16:00 Miscellaneous Information (Pending [facility] Order For Wound Care) 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 PRN XX WOUND CARE; Start 12/08/18 at 02:30 Multivitamins/ Minerals (Theragran-M) 1 tab DAILY PO Last administered on 01/03/19 08:57; Admin Dose 1 TAB; Start 12/09/18 at 09:00 Ascorbic Acid (Vitamin C) 500 mg BID PO Last administered on 01/03/19 21:14; Admin Dose 500 MG; Start 12/09/18 at 09:00 Zinc Sulfate (Zinc Sulfate) 220 mg DAILY PO Last administered on 01/03/19 08:57; Admin Dose 220 MG; Start 12/09/18 at 09:00 Ibuprofen (Motrin) 400 mg Q6H PRN PO MILD PAIN(1-3) OR TEMP>38C Last administered on 12/12/18 08:39; Admin Dose 400 MG; Start 12/10/18 at 21:00 Trimethoprim/ Sulfamethoxazole (Bactrim (Ds)) 1 tab DAILY PO Last administered on 01/03/19 08:57; Admin Dose 1 TAB; Start 12/12/18 at 12:00 Alteplase, Recombinant (Cathflo (Activase)) 2 mg MAY REPEAT X1 PRN CATHETER IF CATHETER REMAINS OCCULUDED Last administered on 12/12/18 18:04; Admin Dose 2 MG; Start 12/12/18 at 14:30 Fluconazole (Diflucan) 100 mg DAILY PO Last administered on 01/03/19 08:57; Admin Dose 100 MG; Start 12/13/18 at 11:30 Morphine Sulfate (morphine) 4 mg DAILY PRN IV SEVERE PAIN LEVEL 7-10 Last administered on 01/03/19 09:56; Admin Dose 4 MG; Start 12/16/18 at 15:30 Zidovudine (Retrovir) 300 mg BID PO Last administered on 01/03/19 21:14; Admin Dose 300 MG; Start 12/21/18 at 21:00 Calcium Carbonate (Tums) 500 mg Q6H PRN PO DISTENSION/GAS/BLOATING Last administered on 12/24/18 06:29; Admin Dose 500 MG; Start 12/23/18 at 13:00 Lactobacillus Acidophilus/ Rhamnosus (Culturelle) 1 cap BID PO Last administered on 01/03/19 21:14; Admin Dose 1 CAP; Start 12/26/18 at 09:00 Famotidine (Pepcid) 20 mg DAILY PO Last administered on 8/6/19at 08:57; Admin Dose 20 MG; Start 12/26/18 at 09:00 Morphine Sulfate (morphine) 1 mg Q4H PRN IV MOD TO SEVERE PAIN Last administered on 01/04/19 06:05; Admin Dose 1 MG; Start 12/26/18 at 14:30 Zolpidem Tartrate (Ambien) 5 mg HS MAY REPEAT X 1 PRN PO INSOMNIA Last administered on 01/03/19 01:37; Admin Dose 5 MG; Start 12/31/18 at 02:30 Enoxaparin Sodium (Lovenox) 40 mg DAILY SC ; Start 01/06/19 at 09:00 Acetaminophen/ Hydrocodone Bitart ([place] (10/325)) 1 tab Q4H PRN PO MODERATE PAIN LEVEL 4-6 Last administered on 01/03/19at 18:05; Admin Dose 1 TAB; Start 01/03/19 at 17:00 Sodium Hypochlorite (Dakins Diluted (40)) 1 applic Q4 TP Last administered on 01/04/19at 06:10; Admin Dose 1 APPLIC; Start 01/03/19 at 17:00 CRYSTAL RAMIREZ NP Jan 04, 2019 11:32
[2019-01-04] MEDS ORDERED: ROCURONIUM 50 MG INJ ONE (11:40)
[2019-01-04] MEDS ORDERED: MIDAZOLAM 1 MG/ML 2 ML INJ ONE (11:40)
[2019-01-04] MEDS ORDERED: GENTAMICIN 80 MG/NS (PMX) 100 ML ONE (11:59)
[2019-01-04] MEDS ORDERED: morphine 10 MG INJ ONE (13:04)
--- NOTE | 2019-01-04 14:18 | PN ---
Date/Time of Note Date/Time of Note DATE: 01/04/19 TIME: 14:16 Assessment/Plan VTE Pro[place]axis [place] [facility] [place]: 2 [place]CD applied [place] [facility] [place] SCD contraindicated: low risk/ambulating Pharmacological prophylaxis: NA/contraindicated Pharm contraindication: surgical contra Lines/Catheters IV Catheter Type (from [facility]): Saline Lock Urinary Cath still in place: No Assessment/Plan Hospital Course A/P Nida gangrene: sp debridement*3. Stable, for skin grafting. Continue wound care offloading may need specialty bed. -Low perioperative risk, risk benefit ratio weighs in favor of proceeding forward to surgery from medical standpoint. HIV/ AIDS last CD4 count 143, on therapy. Patient does not wish to share this info with family Hepatitis B Past tobacco Past drugs: Cocaine/ marijuana Abn LFTs Past alcoholism Ac Encephalopathy stable/resolved Acute renal failure, resolved Postop transient respiratory failure extubated promptly SIADH/hyponatremia stable Left eye blindness PICC line associated infection? Diarrhea, likely Colace MiraLAX associated. Benign, observe; ro c diff Failure to thrive, would benefit from SNF/ rehab for wound care Adjustment disorder counseling if feasible Anemia; stable, abl post surgery likely, therefore transfusion ordered. S: 12/23 no distress. Sp multiple debridement; Has wound vacs. Wounds improved. Presently stable and fit for transfer to tertiary care for grafting. 12/24: Diarrhea but no abdominal pain or fever. On Colace MiraLAX. 12/25: No abd pain/ fever 01/02: No fever diarrhea. Frustrated awaiting assistance from plastic surgery options for skin graft. 01/03 no distress for surgery tomorrow. 01/04: events noted. for surgery today O: vss -cultures: MRSA, Klebsiella, E. coli PE -deferred; pt in OR Result Diagram: 01/04/19 1000 01/04/19 1000 Results 24hrs Laboratory Tests Test 01/04/19 10:00 White Blood Count 4.1 L Red Blood Count 3.06 L Hemoglobin 8.8 L Hematocrit 27.8 L Mean Corpuscular Volume 90.8 Mean Corpuscular Hemoglobin 28.8 L Mean Corpuscular Hemoglobin Concent 31.7 L Red Cell Distribution Width 19.9 H Platelet Count 440 H Mean Platelet Volume 9.0 Immature Granulocytes % 0.200 Neutrophils % 59.4 Lymphocytes % 28.7 Monocytes % 9.2 Eosinophils % 1.5 Basophils % 1.0 Nucleated Red Blood Cells % 0.0 Immature Granulocytes # 0.010 Neutrophils # 2.4 Lymphocytes # 1.2 Monocytes # 0.4 Eosinophils # 0.1 Basophils # 0.0 Nucleated Red Blood Cells # 0.0 Prothrombin Time 12.6 Prothrombin Time Ratio 1.0 INR International Normalized Ratio 0.93 Sodium Level 137 Potassium Level 4.4 Chloride Level 103 Carbon Dioxide Level 30 Anion Gap 4 L Blood Urea Nitrogen 12 Creatinine 0.72 Est Glomerular Filtrat Rate mL/min > 60 Glucose Level 91 Calcium Level 8.9 Exam/Review of Systems Exam Vitals Vital Signs Date Temp Pulse Resp B/P (MAP) Pulse Ox O2 O2 Flow FiO2 Time Delivery Rate 01/04/19 97.5 69 18 94/60 (71) 93 08:30 01/02/19 Room Air 14:42 Intake and Output 01/03/19 01/03/19 01/04/19 1515:00 23:00 07:00 IntakeIntake Total 480 ml 1280 ml BalanceBalance 480 ml 1280 ml Results Results 24hrs Laboratory Tests Test 01/04/19 10:00 White Blood Count 4.1 L Red Blood Count 3.06 L Hemoglobin 8.8 L Hematocrit 27.8 L Mean Corpuscular Volume 90.8 Mean Corpuscular Hemoglobin 28.8 L Mean Corpuscular Hemoglobin Concent 31.7 L Red Cell Distribution Width 19.9 H Platelet Count 440 H Mean Platelet Volume 9.0 Immature Granulocytes % 0.200 Neutrophils % 59.4 Lymphocytes % 28.7 Monocytes % 9.2 Eosinophils % 1.5 Basophils % 1.0 Nucleated Red Blood Cells % 0.0 Immature Granulocytes # 0.010 Neutrophils # 2.4 Lymphocytes # 1.2 Monocytes # 0.4 Eosinophils # 0.1 Basophils # 0.0 Nucleated Red Blood Cells # 0.0 Prothrombin Time 12.6 Prothrombin Time Ratio 1.0 INR International Normalized Ratio 0.93 Sodium Level 137 Potassium Level 4.4 Chloride Level 103 Carbon Dioxide Level 30 Anion Gap 4 L Blood Urea Nitrogen 12 Creatinine 0.72 Est Glomerular Filtrat Rate mL/min > 60 Glucose Level 91 Calcium Level 8.9 Medications Medication Current Medications Ondansetron HCl (Zofran Inj) 4 mg Q6H PRN IV NAUSEA AND/OR VOMITING Last administered on 12/11/18 17:52; Admin Dose 4 MG; Start 11/30/18 at 21:00 Acetaminophen (Tylenol Liquid) 650 mg Q6H PRN PO PAIN LEVEL 1-3 OR FEVER Last administered on 12/14/18 01:51; Admin Dose 650 MG; Start 11/30/18 at 21:00 Emtricitabine/ Tenofovir (Truvada) 1 tab DAILY PO Last administered on 01/03/19 08:57; Admin Dose 1 TAB; Start 12/06/18 at 09:00 Prednisolone Acetate (Pred-Forte 1%) 1 drop DAILY LEFT EYE Last administered on 01/04/19 09:33; Admin Dose 1 DROP; Start 12/05/18 at 19:00 Atropine Sulfate (Atropine 1% Oph) 1 drop BID LEFT EYE Last administered on 09:33; Admin Dose 1 DROP; Start 12/07/18 at 21:00 Guaifenesin (Robitussin Liquid Cup) 100 mg Q4H PRN PO COUGH Last administered on 12/05/18 20:07; Admin Dose 100 MG; Start 12/05/18 at 19:00 Lactulose (Enulose) 20 gm DAILY PRN PO CONSTIPATION Last administered on 12/07/18 17:07; Admin Dose 20 GM; Start 12/07/18 at 16:00 Miscellaneous Information ([facility]) 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 PRN XX WOUND CARE; Start 12/08/18 at 02:30 Multivitamins/ Minerals (Theragran-M) 1 tab DAILY PO Last administered on 01/03/19 08:57; Admin Dose 1 TAB; Start 12/09/18 at 09:00 Ascorbic Acid (Vitamin C) 500 mg BID PO Last administered on 01/03/19 21:14; Admin Dose 500 MG; Start 12/09/18 at 09:00 Zinc Sulfate (Zinc Sulfate) 220 mg DAILY PO Last administered on 01/03/19 08:57; Admin Dose 220 MG; Start 12/09/18 at 09:00 Ibuprofen (Motrin) 400 mg Q6H PRN PO MILD PAIN(1-3) OR TEMP>38C Last administered on 12/12/18 08:39; Admin Dose 400 MG; Start 12/10/18 at 21:00 Trimethoprim/ Sulfamethoxazole (Bactrim (Ds)) 1 tab DAILY PO Last administered on 01/03/19 08:57; Admin Dose 1 TAB; Start 12/12/18 at 12:00 Alteplase, Recombinant (Cathflo (Activase)) 2 mg MAY REPEAT X1 PRN CATHETER IF CATHETER REMAINS OCCULUDED Last administered on 12/12/18 18:04; Admin Dose 2 MG; Start 12/12/18 at 14:30 Fluconazole (Diflucan) 100 mg DAILY PO Last administered on 01/03/19 08:57; Admin Dose 100 MG; Start 12/13/18 at 11:30 Morphine Sulfate (morphine) 4 mg DAILY PRN IV SEVERE PAIN LEVEL 7-10 Last administered on 01/03/19 09:56; Admin Dose 4 MG; Start 12/16/18 at 15:30 Zidovudine (Retrovir) 300 mg BID PO Last administered on 01/03/19 21:14; Admin Dose 300 MG; Start 12/21/18 at 21:00 Calcium Carbonate (Tums) 500 mg Q6H PRN PO DISTENSION/GAS/BLOATING Last administered on 12/24/18 06:29; Admin Dose 500 MG; Start 12/23/18 at 13:00 Lactobacillus Acidophilus/ Rhamnosus (Culturelle) 1 cap BID PO Last administered on 01/03/19 21:14; Admin Dose 1 CAP; Start 12/26/18 at 09:00 Famotidine (Pepcid) 20 mg DAILY PO Last administered on 01/03/19 08:57; Admin Dose 20 MG; Start 12/26/18 at 09:00 Morphine Sulfate (morphine) 1 mg Q4H PRN IV MOD TO SEVERE PAIN Last administered on 01/04/19 06:05; Admin Dose 1 MG; Start 12/26/18 at 14:30 Zolpidem Tartrate (Ambien) 5 mg HS MAY REPEAT X 1 PRN PO INSOMNIA Last administered on 01/03/19 01:37; Admin Dose 5 MG; Start 12/31/18 at 02:30 Enoxaparin Sodium (Lovenox) 40 mg DAILY SC ; Start 01/06/19 at 09:00 Acetaminophen/ Hydrocodone Bitart ([place] (10/325)) 1 tab Q4H PRN PO MODERATE PAIN LEVEL 4-6 Last administered on 01/03/19at 18:05; Admin Dose 1 TAB; Start 01/03/19 at 17:00 Sodium Hypochlorite (Dakins Diluted ()) 1 applic Q4 TP Last administered on 01/04/19at 06:10; Admin Dose 1 APPLIC; Start 01/03/19 at 17:00 YANELY MOYA MD Jan 04, 2019 14:17
[2019-01-04] MEDS ORDERED: KETOROLAC 30 MG INJ ONE (15:29)
[2019-01-04] MEDS ORDERED: PROPOFOL 20 ML ONE (16:24)
[2019-01-04] MEDS ORDERED: CEFAZOLIN 1 GM INJ ONE (16:24)
[2019-01-04] MEDS ORDERED: LIDOCAINE 2% (SDV) 5 ML INJ ONE (16:24)
[2019-01-04] MEDS ORDERED: ONDANSETRON 4 MG INJ ONE (16:25)
--- NOTE | 2019-01-04 16:43 | PAC ---
Date/Time of Note Date/Time of Note DATE: 01/04/19 TIME: 16:43 Post-Anesthesia Notes Post-Anesthesia Note Last documented vital signs Vital Signs Date Temp Pulse Resp B/P (MAP) Pulse Ox O2 O2 Flow FiO2 Time Delivery Rate 01/04/19 97.5 69 18 94/60 (71) 93 08:30 01/02/19 Room Air 14:42 Activity: WNL Respiratory function: WNL Cardiovascular function: WNL Mental status: Baseline Pain reasonably controlled: Yes Hydration appropriate: Yes Nausea/Vomiting absent: Yes Comments BP:118/67, P;74, Spo2;99%, T:98,8 SHAQ RODRIGUEZ MD Jan 04, 2019 16:43
[2019-01-04] MEDS ORDERED: MEPERIDINE 25 MG INJ ONE (16:46)
--- NOTE | 2019-01-04 16:55 | OPPN ---
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 Sharp Excisional Debridement of Skin to and including muscle Right Lateral Thigh Ulcer and Fasciocutaneous Flap Reconstruction 2. Sharp Excisional Debridement of Skin to Muscle Lateral Left Thigh Ulcer and Fasciocutaneous Flap Reconstruction 3. Sharp Excisional Debridement of Skin to and including muscle Left Abdominal Ulcer and Fasciocutaneous Flap Reconstruction 4. Sharp Excisional Debridement of Skin to and including muscle Left Groin and Scrotum Ulcer and Fasciocutaneous Flap Reconstruction Surgeon Taras Petit M.D. assistant director None Anesthesia: general (L.M.A.: Walter Ariza M.D. with 115 cc of local anesthetic solution (0.5% Lidocain, 0.125% Marcain, and 1/200,000 Epinephrine)) Estimated blood loss: 100 - 150 ml's (150 ml.) Transfusion Required 1 Unit of P.R.C., Per P.C.P. none Specimen 1. Excisional Debridement Lateral Right Thigh Ulcer 2. Excisional Debridement Lateral Left Thigh Ulcer 3. Excisional Debridement Left Abdominal Ulcer 4. Excisional Debridement Ulcer Left groin and Scrotum Grafts/Implants none Complications none TARAS PETIT MD Jan 04, 2019 16:48
[2019-01-04] MEDS ORDERED: FENTAnyl 50 MCG/ML VIAL IV PRN (17:00)
[2019-01-04] MEDS ORDERED: HYDROmorphONE 1 MG/5 ML IV SYRINGE IV PRN ×2 (17:00)
[2019-01-04] MEDS ORDERED: ONDANSETRON 4 MG INJ IV PRN (17:00)
[2019-01-04] MEDS ORDERED: DIPHENHYDRAMINE 50 MG INJ IV PRN (17:00)
[2019-01-04] MEDS ORDERED: METOCLOPRAMIDE 10 MG INJ IV PRN (17:00)
[2019-01-04] MEDS ORDERED: MEPERIDINE 25 MG INJ IV PRN (17:00)
[2019-01-04] MEDS ORDERED: DIPHENHYDRAMINE 50 MG INJ ONE (17:10)
--- NOTE | 2019-01-04 19:24 | OPR ---
DATE OF OPERATION: 01/04/2019 PREOPERATIVE DIAGNOSIS: Post-Nida's gangrene, multiple ulcers (x4), stage IV, nonhealin. Right lateral thigh (7 cm x 5 cm). 2. Lateral left thigh (25 cm x 3.5 cm). 3. Left abdomen (25 cm x 5 cm). 4. Left groin and scrotum (15 cm x 5 cm). POSTOPERATIVE DIAGNOSIS: Post-Nida's gangrene, multiple ulcers (x4), stage IV, nonhealin. Right lateral thigh (7 cm x 5 cm). 2. Lateral left thigh (25 cm x 3.5 cm). 3. Left abdomen (25 cm x 5 cm). 4. Left groin and scrotum (15 cm x 5 cm). PROCEDURES: 1. Sharp excisional debridement of skin, subcutaneous tissue, fascia and muscle, right lateral thigh ulcer with fasciocutaneous flap reconstruction. 2. Sharp excisional debridement of skin, subcutaneous tissue, fascia and muscle, lateral left thigh ulcer and fasciocutaneous flap reconstruction. 3. Sharp excisional debridement of skin, subcutaneous tissue, fascia and muscle, left abdominal ulce r and fasciocutaneous flap reconstruction. 4. Sharp excisional debridement of skin, subcutaneous tissue, fascia and muscle, left groin and scro nathan ulcer with fasciocutaneous flap reconstruction. SURGEON: Taras Petit MD ANESTHESIOLOGIST: Walter Ariza MD ANESTHESIA: General laryngeal mask airway using 115 mL of local anesthetic solution containing 0.5% lidocaine, 0.125% Marcaine and 1:200,000 epinephrine solution. ESTIMATED BLOOD LOSS: 150 mL. TRANSFUSIONS: One unit of packed red cells was ordered preoperatively due to low hemoglobin and kt tocrit count and expected blood loss with 4 major flaps by primary care physician. SPECIMENS: 1. Excisional debridement, lateral right thigh ulcer. 2. Excisional debridement, lateral left thigh ulcer. 3. Excisional debridement, left abdominal ulcer. 4. Excisional debridement, ulcer, left groin and scrotum. DRAINS: Tom-Fischer 10 mm flat (x1 for abdomen). COMPLICATIONS: None. DRESSING: Bactroban cream, dry sterile dressing, Tegaderm, ABD pads and Medipore tape. OPERATIVE PROCEDURE IN DETAILS: The patient received 2 grams of intravenous Ancef and 160 mg of intr avenous gentamicin as preoperative antibiotic in the operating room with the patient in supine positi on, following adequate monitoring and induction of adequate level of general anesthesia by Dr. Ariza , anesthesiologist and also after surgical pause. The aforementioned ulcers were prepped and draped in the usual sterile fashion. Operation was first started for the right thigh lateral ulcer followed by the ulcer over the lateral left thigh and followed by the ulcer over the left side of the abdomen and completed by performing the ulcer over the left groin and scrotum all in identical fashion using electrocoagulation for meticulous hemostasis throughout the procedure as follows: Area of skin necr osis around the ulcer was taken down using sharp excisional debridement using knife and scissors and hemostasis by electrocoagulation. Specimen was sent to pathology for identification. Primary intent ion was not possible in any of the 4 ulcers due to the size, direction and location of the ulcers; th erefore, a double advancement fasciocutaneous flap was utilized on all 4 sides including semi-abdomin oplasty flap for the abdominal reconstruction. To reconstruct the defect, a 10 mm flat Tom-Fischer drain was placed beneath the abdominal flap. Closure was followed for all 4 individually and separa tely using interrupted stitches of #1 Vicryl, followed by interrupted and continuous retention stitch es of #1 Prolene. Repairs were found to be satisfactory upon of their completion. Flaps were 100% v iable upon completion of the procedure. Both testicles were completely exposed to air without any co verage preoperatively. A myocutaneous flap was used for the scrotum successfully covered both testes in a normal fashion. Following completion of the procedure, dressing was applied. All counts were checked and reported to be correct prior to closure. The patient tolerated this procedure very well and left the operating room to the recovery room awake, stable and in comfortable, satisfactory and e xtubated condition. POSTOPERATIVE PLAN: Includes continuation of IV antibiotics with full bed rest. I will open the bushra ssings in about 5 days to check the viability of the flaps and the healing. The patient should be ab le to be considered for transfer to rehab or nursing facility for a period of at least 1 month postop erative following dressing change in about 5 days. Dictated By: TARAS KIMBLE/MESFIN Conf#: [id number] DID#: [id number] CC: PARIS ARROYO MD; GWEN BUCK MD; YANELY MOYA MD;*[facility]*
[2019-01-05] MEDS: DAKINS 0.0125%(1/40) 473 ML SOLUTION TP SCH ×8 (00:47→23:06)
[2019-01-05 01:18] VITALS: BP 95/51; PULSE 83; RESP 16
[2019-01-05] MEDS: morphine 2 MG INJ IV PRN ×4 (07:37→21:23)
[2019-01-05 07:56] VITALS: BP 87/51; PULSE 86; RESP 19
[2019-01-05] MEDS: TRIMETHOPRIM/SULFAMETHOX (DS) TAB PO SCH (09:35)
[2019-01-05] MEDS: ZINC SULFATE 220 MG CAP PO SCH (09:35)
[2019-01-05] MEDS: LACTOBACILLUS RHAMNOSUS CAP PO SCH ×2 (09:35→21:22)
[2019-01-05] MEDS: FAMOTIDINE 20 MG TAB PO SCH (09:35)
[2019-01-05] MEDS: FLUCONAZOLE 100 MG TAB PO SCH (09:35)
[2019-01-05] MEDS: EMTRICITABINE/TENOFOVIR TAB PO SCH (09:35)
[2019-01-05] MEDS: MULTIVITAMINS/MINERALS TAB PO SCH (09:35)
[2019-01-05] MEDS: ZIDOVUDINE 300 MG TAB PO SCH ×2 (09:35→21:22)
[2019-01-05] MEDS: ASCORBIC ACID 500 MG TAB PO SCH ×2 (09:35→21:22)
[2019-01-05] MEDS: PREDNISOLONE ACET 1% 5 ML OPH LEFT EYE SCH (09:36)
[2019-01-05] MEDS: ATROPINE 1% 5 ML OPH LEFT EYE SCH ×2 (09:36→21:21)
[2019-01-05] MEDS: HYDROCODONE/APAP (10/325) TAB PO PRN ×4 (10:03→21:21)
--- NOTE | 2019-01-05 11:36 | PN ---
Date/Time of Note Date/Time of Note DATE: 01/05/19 TIME: 11:32 Assessment/Plan VTE Prophylaxis Risk score (from [facility] risk: 3 SCD applied (from [facility]): Yes SCD contraindicated: low risk/ambulating Pharmacological prophylaxis: NA/contraindicated Pharm contraindication: surgical contra Lines/Catheters [facility]from [facility] Saline Lock Urinary Cath still in place: No Assessment/Plan Hospital Course A/P Nida gangrene: sp debridement*3. POD 1 grafting, cont wound care, offloading. may need specialty bed. HIV/ AIDS last CD4 count 143, on therapy. Patient does not wish to share this info with family Immunocompromised status; may impede wound healing Hepatitis B Past tobacco Past drugs: Cocaine/ marijuana Abn LFTs Past alcoholism Ac Encephalopathy stable/resolved Acute renal failure, resolved Postop transient respiratory failure extubated promptly SIADH/hyponatremia stable Left eye blindness PICC line associated infection? Diarrhea, Colace MiraLAX associated, resolved. Ftt, would benefit from SNF/ rehab for wound care Adjustment disorder counseling if feasible Anemia; stable, abl post surgery likely, transfused. S: 12/23 no distress. Sp multiple debridement; Has wound vacs. Wounds improved. Presently stable and fit for transfer to tertiary care for grafting. 12/24: Diarrhea but no abdominal pain or fever. On Colace MiraLAX. 12/25: No abd pain/ fever 01/02: No fever diarrhea. Frustrated awaiting assistance from plastic surgery options for skin graft. 01/03 no distress for surgery tomorrow. 01/04: events noted. for surgery today 01/05: Moderate pain. No fever diarrhea O: vss -cultures: MRSA, Klebsiella, E. coli PE No pallor Regular no mrg Clear Bs dimin mod tender, no r/r/g; wounds dressed. YA intact No edema Result Diagram: 01/05/19 0901/05/19 0958 Results 24hrs Laboratory Tests Test 01/05/19 09:58 White Blood Count 9.9 # Red Blood Count 2.94 L Hemoglobin 8.7 L Hematocrit 26.3 L Mean Corpuscular Volume 89.5 Mean Corpuscular Hemoglobin 29.6 Mean Corpuscular Hemoglobin Concent 33.1 Red Cell Distribution Width 19.2 H Platelet Count 368 Mean Platelet Volume 9.0 Immature Granulocytes % 0.600 H Neutrophils % 81.7 H Lymphocytes % 11.8 L Monocytes % 5.7 Eosinophils % 0.0 Basophils % 0.2 Nucleated Red Blood Cells % 0.0 Immature Granulocytes # 0.060 H Neutrophils # 8.1 H Lymphocytes # 1.2 Monocytes # 0.6 Eosinophils # 0.0 Basophils # 0.0 Nucleated Red Blood Cells # 0.0 Sodium Level 132 L Potassium Level 4.7 Chloride Level 98 Carbon Dioxide Level 30 Anion Gap 4 L Blood Urea Nitrogen 13 Creatinine 0.85 Est Glomerular Filtrat Rate mL/min > 60 Glucose Level 148 # Calcium Level 8.1 L Total Bilirubin 0.7 Direct Bilirubin 0.00 Indirect Bilirubin 0.7 Aspartate Amino Transf (AST/SGOT) 30 Alanine Aminotransferase (ALT/SGPT) 19 Alkaline Phosphatase 69 Total Protein 6.1 Albumin 2.8 L Globulin 3.30 H Albumin/Globulin Ratio 0.84 Exam/Review of Systems Exam Vitals Vital Signs Date Temp Pulse Resp B/P (MAP) Pulse Ox O2 O2 Flow FiO2 Time Delivery Rate 01/05/19 99.9 86 19 87/51 (63) 96 07:56 01/04/19 Room Air 18:25 01/04/19 8.0 16:41 Intake and Output 01/04/19 01/04/19 01/05/19 1515:00 23:00 07:00 IntakeIntake Total 1550 ml OutputOutput Total 0 ml 180 ml 600 ml BalanceBalance 0 ml 1370 ml -600 ml Results Results 24hrs Laboratory Tests Test 01/05/19 09:58 White Blood Count 9.9 # Red Blood Count 2.94 L Hemoglobin 8.7 L Hematocrit 26.3 L Mean Corpuscular Volume 89.5 Mean Corpuscular Hemoglobin 29.6 Mean Corpuscular Hemoglobin Concent 33.1 Red Cell Distribution Width 19.2 H Platelet Count 368 Mean Platelet Volume 9.0 Immature Granulocytes % 0.600 H Neutrophils % 81.7 H Lymphocytes % 11.8 L Monocytes % 5.7 Eosinophils % 0.0 Basophils % 0.2 Nucleated Red Blood Cells % 0.0 Immature Granulocytes # 0.060 H Neutrophils # 8.1 H Lymphocytes # 1.2 Monocytes # 0.6 Eosinophils # 0.0 Basophils # 0.0 Nucleated Red Blood Cells # 0.0 Sodium Level 132 L Potassium Level 4.7 Chloride Level 98 Carbon Dioxide Level 30 Anion Gap 4 L Blood Urea Nitrogen 13 Creatinine 0.85 Est Glomerular Filtrat Rate mL/min > 60 Glucose Level 148 # Calcium Level 8.1 L Total Bilirubin 0.7 Direct Bilirubin 0.00 Indirect Bilirubin 0.7 Aspartate Amino Transf (AST/SGOT) 30 Alanine Aminotransferase (ALT/SGPT) 19 Alkaline Phosphatase 69 Total Protein 6.1 Albumin 2.8 L Globulin 3.30 H Albumin/Globulin Ratio 0.84 Medications Medication Current Medications Ondansetron HCl (Zofran Inj) 4 mg Q6H PRN IV NAUSEA AND/OR VOMITING Last administered on 12/11/18 17:52; Admin Dose 4 MG; Start 11/30/18 at 21:00 Acetaminophen (Tylenol Liquid) 650 mg Q6H PRN PO PAIN LEVEL 1-3 OR FEVER Last administered on 12/14/18 01:51; Admin Dose 650 MG; Start 11/30/18 at 21:00 Emtricitabine/ Tenofovir (Truvada) 1 tab DAILY PO Last administered on 01/05/19 09:35; Admin Dose 1 TAB; Start 12/06/18 at 09:00 Prednisolone Acetate (Pred-Forte 1%) 1 drop DAILY LEFT EYE Last administered on 01/05/19 09:36; Admin Dose 1 DROP; Start 12/05/18 at 19:00 Atropine Sulfate (Atropine 1% Oph) 1 drop BID LEFT EYE Last administered on 01/05/19 09:36; Admin Dose 1 DROP; Start 12/07/18 at 21:00 Guaifenesin (Robitussin Liquid Cup) 100 mg Q4H PRN PO COUGH Last administered on 12/05/18 20:07; Admin Dose 100 MG; Start 12/05/18 at 19:00 Lactulose (Enulose) 20 gm DAILY PRN PO CONSTIPATION Last administered on 12/07/18 17:07; Admin Dose 20 GM; Start 12/07/18 at 16:00 Miscellaneous Information (Pending [facility] Order For Wound Care) 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 PRN XX WOUND CARE; Start 12/08/18 at 02:30 Multivitamins/ Minerals (Theragran-M) 1 tab DAILY PO Last administered on 01/05/19 09:35; Admin Dose 1 TAB; Start 12/09/18 at 09:00 Ascorbic Acid (Vitamin C) 500 mg BID PO Last administered on 01/05/19 09:35; Admin Dose 500 MG; Start 12/09/18 at 09:00 Zinc Sulfate (Zinc Sulfate) 220 mg DAILY PO Last administered on 01/05/19 09:3 5; Admin Dose 220 MG; Start 12/09/18 at 09:00 Ibuprofen (Motrin) 400 mg Q6H PRN PO MILD PAIN(1-3) OR TEMP>38C Last administered on 12/12/18 08:39; Admin Dose 400 MG; Start 12/10/18 at 21:00 Trimethoprim/ Sulfamethoxazole (Bactrim (Ds)) 1 tab DAILY PO Last administered on 01/05/19 09:35; Admin Dose 1 TAB; Start 12/12/18 at 12:00 Alteplase, Recombinant (Cathflo (Activase)) 2 mg MAY REPEAT X1 PRN CATHETER IF CATHETER REMAINS OCCULUDED Last administered on 12/12/18at 18:04; Admin Dose 2 MG; Start 12/12/18 at 14:30 Fluconazole (Diflucan) 100 mg DAILY PO Last administered on 01/05/19 09:35; Admin Dose 100 MG; Start 12/13/18 at 11:30 Morphine Sulfate (morphine) 4 mg DAILY PRN IV SEVERE PAIN LEVEL 7-10 Last administered on 01/03/19 09:56; Admin Dose 4 MG; Start 12/16/18 at 15:30 Zidovudine (Retrovir) 300 mg BID PO Last administered on 01/05/19 09:35; Admin Dose 300 MG; Start 12/21/18 at 21:00 Calcium Carbonate (Tums) 500 mg Q6H PRN PO DISTENSION/GAS/BLOATING Last administered on 12/24/18 06:29; Admin Dose 500 MG; Start 12/23/18 at 13:00 Lactobacillus Acidophilus/ Rhamnosus (Culturelle) 1 cap BID PO Last administered on 01/05/19 09:35; Admin Dose 1 CAP; Start 12/26/18 at 09:00 Famotidine (Pepcid) 20 mg DAILY PO Last administered on 01/05/19 09:35; Admin Dose 20 MG; Start 12/26/18 at 09:00 Morphine Sulfate (morphine) 1 mg Q4H PRN IV MOD TO SEVERE PAIN Last administered on 01/05/19 07:37; Admin Dose 1 MG; Start 12/26/18 at 14:30 Zolpidem Tartrate (Ambien) 5 mg HS MAY REPEAT X 1 PRN PO INSOMNIA Last administered on 01/03/19 01:37; Admin Dose 5 MG; Start 12/31/18 at 02:30 Enoxaparin Sodium (Lovenox) 40 mg DAILY SC ; Start 01/06/19 at 09:00 Acetaminophen/ Hydrocodone Bitart ([place] ()) 1 tab Q4H PRN PO MODERATE PAIN LEVEL 4-6 Last administered on 01/05/19 10:03; Admin Dose 1 TAB; Start 01/03/19 at 17:00 Sodium Hypochlorite (Dakins Diluted ()) 1 applic Q4 TP Last administered on 01/04/19 06:10; Admin Dose 1 APPLIC; Start 01/03/19 at 17:00 YANELY MOYA MD Jan 05, 2019 11:36
[2019-01-05] MEDS ORDERED: ONDANSETRON 4 MG INJ IV PRN (12:00)
--- NOTE | 2019-01-05 13:21 | CONS ---
Assessment/Plan Assessment/Plan Hospital Course (Demo Recall) Patient is sleeping family at bedside no fevers overnight T-max this morning 99.9 WBC 9.9 neutrophils 81.7 BUN 13 creatinine 0.85 Microbiology: Wound culture grew MRSA, repeat cx + Kleb, E coli, MRSA====> treated Antimicrobials: Truvada, Retrovir, Diflucan, Bactrim Physical examination: Well-developed well-nourished middle-aged man who is alert in no distress. Head atraumatic normocephalic sclera nonicteric neck is supple chest rise symmetrical breath sounds clear heart: S1-S2 abdomen soft bowel sounds present extremities without cyanosis. Skin: Patient has dressing over his left side of the abdomen and bilateral wound vacs to hips Assessment: 1. S/p ongoing fevers==> resolved after PICC dc'd 2. Fornier's gangrene and necrotizing fasciitis, status post multiple recurrent debridement ==> latest one on 12/08/18 by urology 3. AIDS===> CD4 12/13 143 4. Status post renal failure Plan: Stable, status post flap reconstruction yesterday by plastic surgery, continue BAEZ and proph Rx Consultation Date/Type/Reason Admit Date/Time Nov 30, 2018 at 20:47 Initial Consult Date 12/02/18 Type of Consult id Requesting Provider: TYE PETIT Date/Time of Note DATE: 01/05/19 TIME: 13:20 Exam/Review of Systems Exam Vitals Vital Signs Date Temp Pulse Resp B/P (MAP) Pulse Ox O2 O2 Flow FiO2 Time Delivery Rate 01/05/19 99.9 86 19 87/51 (63) 96 07:56 01/04/19 Room Air 18:25 01/04/19 8.0 16:41 Intake and Output 01/04/19 01/04/19 01/05/19 1515:00 23:00 07:00 IntakeIntake Total 1550 ml OutputOutput Total 0 ml 180 ml 600 ml BalanceBalance 0 ml 1370 ml -600 ml Results Result Diagram: 01/05/1958 01/05/19 0958 Results 24hrs Laboratory Tests Test 01/05/19 09:58 White Blood Count 9.9 # Red Blood Count 2.94 L Hemoglobin 8.7 L Hematocrit 26.3 L Mean Corpuscular Volume 89.5 Mean Corpuscular Hemoglobin 29.6 Mean Corpuscular Hemoglobin Concent 33.1 Red Cell Distribution Width 19.2 H Platelet Count 368 Mean Platelet Volume 9.0 Immature Granulocytes % 0.600 H Neutrophils % 81.7 H Lymphocytes % 11.8 L Monocytes % 5.7 Eosinophils % 0.0 Basophils % 0.2 Nucleated Red Blood Cells % 0.0 Immature Granulocytes # 0.060 H Neutrophils # 8.1 H Lymphocytes # 1.2 Monocytes # 0.6 Eosinophils # 0.0 Basophils # 0.0 Nucleated Red Blood Cells # 0.0 Sodium Level 132 L Potassium Level 4.7 Chloride Level 98 Carbon Dioxide Level 30 Anion Gap 4 L Blood Urea Nitrogen 13 Creatinine 0.85 Est Glomerular Filtrat Rate mL/min > 60 Glucose Level 148 # Calcium Level 8.1 L Total Bilirubin 0.7 Direct Bilirubin 0.00 Indirect Bilirubin 0.7 Aspartate Amino Transf (AST/SGOT) 30 Alanine Aminotransferase (ALT/SGPT) 19 Alkaline Phosphatase 69 Total Protein 6.1 Albumin 2.8 L Globulin 3.30 H Albumin/Globulin Ratio 0.84 Medications Medication Current Medications Acetaminophen (Tylenol Liquid) 650 mg Q6H PRN PO PAIN LEVEL 1-3 OR FEVER Last administered on 12/14/18 01:51; Admin Dose 650 MG; Start 11/30/18 at 21:00 Emtricitabine/ Tenofovir (Truvada) 1 tab DAILY PO Last administered on 01/05/19 09:35; Admin Dose 1 TAB; Start 12/06/18 at 09:00 Prednisolone Acetate (Pred-Forte 1%) 1 drop DAILY LEFT EYE Last administered on 01/05/19 09:36; Admin Dose 1 DROP; Start 12/05/18 at 19:00 Atropine Sulfate (Atropine 1% Oph) 1 drop BID LEFT EYE Last administered on 01/05/19 09:36; Admin Dose 1 DROP; Start 12/07/18 at 21:00 Guaifenesin (Robitussin Liquid Cup) 100 mg Q4H PRN PO COUGH Last administered on 12/05/18 20:07; Admin Dose 100 MG; Start 12/05/18 at 19:00 Lactulose (Enulose) 20 gm DAILY PRN PO CONSTIPATION Last administered on 12/07/18 17:07; Admin Dose 20 GM; Start 12/07/18 at 16:00 Miscellaneous Information (Pending Santyl Order For Wound Care) 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 PRN XX WOUND CARE; Start 12/08/18 at 02:30 Multivitamins/ Minerals (Theragran-M) 1 tab DAILY PO Last administered on 01/05/19 09:35; Admin Dose 1 TAB; Start 12/09/18 at 09:00 Ascorbic Acid (Vitamin C) 500 mg BID PO Last administered on 01/05/19 09:35; Admin Dose 500 MG; Start 12/09/18 at 09:00 Zinc Sulfate (Zinc Sulfate) 220 mg DAILY PO Last administered on 01/05/19 09:35; Admin Dose 220 MG; Start 12/09/18 at 09:00 Ibuprofen (Motrin) 400 mg Q6H PRN PO MILD PAIN(1-3) OR TEMP>38C Last a dministered on 12/12/18 08:39; Admin Dose 400 MG; Start 12/10/18 at 21:00 Trimethoprim/ Sulfamethoxazole (Bactrim (Ds)) 1 tab DAILY PO Last administered on 01/05/19 09:35; Admin Dose 1 TAB; Start 12/12/18 at 12:00 Alteplase, Recombinant (Cathflo (Activase)) 2 mg MAY REPEAT X1 PRN CATHETER IF CATHETER REMAINS OCCULUDED Last administered on 12/12/18 18:04; Admin Dose 2 MG; Start 12/12/18 at 14:30 Fluconazole (Diflucan) 100 mg DAILY PO Last administered on 01/05/19 09:35; Admin Dose 100 MG; Start 12/13/18 at 11:30 Morphine Sulfate (morphine) 4 mg DAILY PRN IV SEVERE PAIN LEVEL 7-10 Last admi nistered on 01/03/19 09:56; Admin Dose 4 MG; Start 12/16/18 at 15:30 Zidovudine (Retrovir) 300 mg BID PO Last administered on 01/05/19 09:35; Admin Dose 300 MG; Start 12/21/18 at 21:00 Calcium Carbonate (Tums) 500 mg Q6H PRN PO DISTENSION/GAS/BLOATING Last administered on 12/24/18 06:29; Admin Dose 500 MG; Start 12/23/18 at 13:00 Lactobacillus Acidophilus/ Rhamnosus (Culturelle) 1 cap BID PO Last administered on 01/05/19at 09:35; Admin Dose 1 CAP; Start 12/26/18 at 09:00 Famotidine (Pepcid) 20 mg DAILY PO Last administered on 01/05/19at 09:35; Admin Dose 20 MG; Start 12/26/18 at 09:00 Morphine Sulfate (morphine) 1 mg Q4H PRN IV MOD TO SEVERE PAIN Last administered on 01/05/19at 12:45; Admin Dose 1 MG; Start 12/26/18 at 14:30 Zolpidem Tartrate (Ambien) 5 mg HS MAY REPEAT X 1 PRN PO INSOMNIA Last administered on 01/03/19at 01:37; Admin Dose 5 MG; Start 12/31/18 at 02:30 Enoxaparin Sodium (Lovenox) 40 mg DAILY SC ; Start 01/06/19 at 09:00 Sodium Hypochlorite (Dakins Diluted (1/40)) 1 applic Q4 TP Last administered on 01/04/19at 06:10; Admin Dose 1 APPLIC; Start 01/03/19 at 17:00 Acetaminophen/ Hydrocodone Bitart ([place] (10/325)) 1 tab Q3 PRN PO MODERATE PAIN LEVEL 4-6; Start 01/05/19 at 12:00 Ondansetron HCl (Zofran Inj) 4 mg Q4 PRN IV NAUSEA AND/OR VOMITING; Start 01/05/19 at 12:00 CRYSTAL RAMIREZ NP Jan 05, 2019 13:21
[2019-01-05 20:18] VITALS: BP 93/50; PULSE 90; RESP 18
[2019-01-06] MEDS: HYDROCODONE/APAP (10/325) TAB PO PRN ×6 (02:04→20:49)
[2019-01-06] MEDS: morphine 2 MG INJ IV PRN ×6 (02:04→22:21)
[2019-01-06 02:05] VITALS: BP 92/52; PULSE 84; RESP 18
[2019-01-06 08:14] VITALS: BP 85/56; PULSE 79; RESP 18
[2019-01-06] MEDS: DAKINS 0.0125%(1/40) 473 ML SOLUTION TP SCH ×5 (09:00→21:00)
[2019-01-06] MEDS: ENOXAPARIN 40 MG/0.4 ML SYG SC SCH (09:02)
[2019-01-06] MEDS: FLUCONAZOLE 100 MG TAB PO SCH (09:02)
[2019-01-06] MEDS: ZINC SULFATE 220 MG CAP PO SCH (09:02)
[2019-01-06] MEDS: FAMOTIDINE 20 MG TAB PO SCH (09:02)
[2019-01-06] MEDS: TRIMETHOPRIM/SULFAMETHOX (DS) TAB PO SCH (09:02)
[2019-01-06] MEDS: LACTOBACILLUS RHAMNOSUS CAP PO SCH ×2 (09:02→20:49)
[2019-01-06] MEDS: ZIDOVUDINE 300 MG TAB PO SCH ×2 (09:02→20:49)
[2019-01-06] MEDS: MULTIVITAMINS/MINERALS TAB PO SCH (09:02)
[2019-01-06] MEDS: EMTRICITABINE/TENOFOVIR TAB PO SCH (09:02)
[2019-01-06] MEDS: ATROPINE 1% 5 ML OPH LEFT EYE SCH ×2 (09:03→20:51)
[2019-01-06] MEDS: ASCORBIC ACID 500 MG TAB PO SCH ×2 (09:03→20:49)
[2019-01-06] MEDS: PREDNISOLONE ACET 1% 5 ML OPH LEFT EYE SCH (09:03)
--- NOTE | 2019-01-06 11:33 | PN ---
Date/Time of Note Date/Time of Note DATE: 01/06/19 TIME: 11:31 Assessment/Plan VTE Prophylaxis Risk score (from Nsg)>0 risk: 4 SCD applied (from Nsg): No SCD contraindicated: low risk/ambulating Pharmacological prophylaxis: LMWH Lines/Catheters IV Catheter Type (from Nrsg): [place] Lock Urinary Cath still in place: No Assessment/Plan Hospital Course A/P Nida gangrene: sp debridement*3. POD 2 grafting/ flap, cont wound care, offloading. may need specialty bed. HIV/ AIDS last CD4 count 143, on therapy. Patient does not wish to share this info with family Immunocompromised status; may impede wound healing Hepatitis B Past tobacco Past drugs: Cocaine/ marijuana Abn LFTs Past alcoholism Ac Encephalopathy stable/resolved Acute renal failure, resolved Postop transient respiratory failure extubated promptly SIADH/hyponatremia stable Left eye blindness PICC line associated infection? Diarrhea, Colace MiraLAX associated, resolved. Ftt, would benefit from SNF/ rehab for wound care. vs home health Adjustment disorder counseling if feasible Anemia; stable, abl post surgery likely, transfused. S: 12/23 no distress. Sp multiple debridement; Has wound vacs. Wounds improved. Presently stable and fit for transfer to tertiary care for grafting. 12/24: Diarrhea but no abdominal pain or fever. On Colace MiraLAX. 12/25: No abd pain/ fever 01/02: No fever diarrhea. Frustrated awaiting assistance from plastic surgery op tions for skin graft. 01/03 no distress for surgery tomorrow. 01/04: events noted. for surgery today 01/05: Moderate pain. No fever diarrhea 01/06 mild seepage at YA site. No fever dyspnea. Pain controlled. Wishes to go home and have home health. O: vss -cultures: MRSA, Klebsiella, E. coli PE No pallor Regular no mrg Clear Bs dimin mod tender, no r/r/g; wounds dressed. YA intact No edema Result Diagram: 01/05/19 0901/05/19 0958 Results 24hrs Laboratory Tests Test 01/06/19 06:35 Lab Scanned Report BLOOD TRANSFUSION Exam/Review of Systems Exam Vitals Vital Signs Date Temp Pulse Resp B/P (MAP) Pulse Ox O2 O2 Flow FiO2 Time Delivery Rate 01/06/19 98.0 79 18 85/56 (66) 95 08:14 01/04/19 Room Air 18:25 01/04/19 8.0 16:41 Intake and Output 01/05/19 01/05/19 01/06/19 1515:00 23:00 07:00 IntakeIntake Total 1400 ml 500 ml OutputOutput Total 660 ml 835 ml 1110 ml BalanceBalance 740 ml -335 ml -1110 ml Results Results 24hrs Laboratory Tests Test 01/06/19 06:35 Lab Scanned Report BLOOD TRANSFUSION Medications Medication Current Medications Acetaminophen (Tylenol Liquid) 650 mg Q6H PRN PO PAIN LEVEL 1-3 OR FEVER Last administered on 12/14/18 01:51; Admin Dose 650 MG; Start 11/30/18 at 21:00 Emtricitabine/ Tenofovir (Truvada) 1 tab DAILY PO Last administered on 01/06/19 09:02; Admin Dose 1 TAB; Start 12/06/18 at 09:00 Prednisolone Acetate (Pred-Forte 1%) 1 drop DAILY LEFT EYE Last administered on 01/06/19 09:03; Admin Dose 1 DROP; Start 12/05/18 at 19:00 Atropine Sulfate (Atropine 1% Oph) 1 drop BID LEFT EYE Last administered on 01/06/19 09:03; Admin Dose 1 DROP; Start 12/07/18 at 21:00 Guaifenesin (Robitussin Liquid Cup) 100 mg Q4H PRN PO COUGH Last administered on 12/05/18 20:07; Admin Dose 100 MG; Start 12/05/18 at 19:00 Lactulose (Enulose) 20 gm DAILY PRN PO CONSTIPATION Last administered on 12/07/18 17:07; Admin Dose 20 GM; Start 12/07/18 at 16:00 Multivitamins/ Minerals (Theragran-M) 1 tab DAILY PO Last administered on 01/06/19 09:02; Admin Dose 1 TAB; Start 12/09/18 at 09:00 Ascorbic Acid (Vitamin C) 500 mg BID PO Last administered on 01/06/19 09:03; Admin Dose 500 MG; Start 12/09/18 at 09:00 Zinc Sulfate (Zinc Sulfate) 220 mg DAILY PO Last administered on 01/06/19 09:02; Admin Dose 220 MG; Start 12/09/18 at 09:00 Ibuprofen (Motrin) 400 mg Q6H PRN PO MILD PAIN(1-3) OR TEMP>38C Last adm inistered on 12/12/18 08:39; Admin Dose 400 MG; Start 12/10/18 at 21:00 Trimethoprim/ Sulfamethoxazole (Bactrim (Ds)) 1 tab DAILY PO Last administered on 01/06/19 09:02; Admin Dose 1 TAB; Start 12/12/18 at 12:00 Alteplase, Recombinant (Cathflo (Activase)) 2 mg MAY REPEAT X1 PRN CATHETER IF CATHETER REMAINS OCCULUDED Last administered on 12/12/18 18:04; Admin Dose 2 MG; Start 12/12/18 at 14:30 Fluconazole (Diflucan) 100 mg DAILY PO Last administered on 01/06/19 09:02; Admin Dose 100 MG; Start 12/13/18 at 11:30 Morphine Sulfate (morphine) 4 mg DAILY PRN IV SEVERE PAIN LEVEL 7-10 Last administered on 01/03/19 09:56; Admin Dose 4 MG; Start 12/16/18 at 15:30 Zidovudine (Retrovir) 300 mg BID PO Last administered on 01/06/19 09:02; Admin Dose 300 MG; Start 12/21/18 at 21:00 Calcium Carbonate (Tums) 500 mg Q6H PRN PO DISTENSION/GAS/BLOATING Last administered on 12/24/18 06:29; Admin Dose 500 MG; Start 12/23/18 at 13:00 Lactobacillus Acidophilus/ Rhamnosus (Culturelle) 1 cap BID PO Last administered on 01/06/19 09:02; Admin Dose 1 CAP; Start 12/26/18 at 09:00 Famotidine (Pepcid) 20 mg DAILY PO Last administered on 01/06/19 09:02; Admin Dose 20 MG; Start 12/26/18 at 09:00 Morphine Sulfate (morphine) 1 mg Q4H PRN IV MOD TO SEVERE PAIN Last administered on 01/06/19 09:59; Admin Dose 1 MG; Start 12/26/18 at 14:30 Zolpidem Tartrate (Ambien) 5 mg HS MAY REPEAT X 1 PRN PO INSOMNIA Last administered on 01/03/19 01:37; Admin Dose 5 MG; Start 12/31/18 at 02:30 Enoxaparin Sodium (Lovenox) 40 mg DAILY SC Last administered on 01/06/19at 09:02; Admin Dose 40 MG; Start 01/06/19 at 09:00 Sodium Hypochlorite (Dakins Diluted ()) 1 applic Q4 TP Last administered on 01/04/19at 06:10; Admin Dose 1 APPLIC; Start 01/03/19 at 17:00 Acetaminophen/ Hydrocodone Bitart ([place] ()) 1 tab Q3 PRN PO MODERATE PAIN LEVEL 4-6 Last administered on 01/06/19at 09:52; Admin Dose 1 TAB; Start 01/05/19 at 12:00 Ondansetron HCl (Zofran Inj) 4 mg Q4 PRN IV NAUSEA AND/OR VOMITING; Start 01/05/19 at 12:00 YANELY MOYA MD Jan 06, 2019 11:33
[2019-01-06] MEDS ORDERED: DOCUSATE SODIUM 100 MG CAP PO PRN (12:00)
--- NOTE | 2019-01-06 13:49 | CONS ---
Assessment/Plan Assessment/Plan Hospital Course (Demo Recall) Alert complaining of pain in no distress looks comfortable afebrile, no labs today Microbiology: Wound culture grew MRSA, repeat cx + Kleb, E coli, MRSA====> treated Antimicrobials: Truvada, Retrovir, Diflucan, Bactrim Physical examination: Well-developed well-nourished middle-aged man who is alert in no distress. Head atraumatic normocephalic sclera nonicteric neck is supple chest rise symmetrical breath sounds clear heart: S1-S2 abdomen soft bowel sounds present extremities without cyanosis. Skin: Patient has dressing over his left side of the abdomen and bilateral wound vacs to hips Assessment: 1. S/p ongoing fevers==> resolved after PICC dc'd 2. Fornier's gangrene and necrotizing fasciitis, status post multiple recurrent debridement ==> latest one on 12/08/18 by urology 3. AIDS===> CD4 12/13 143 4. Status post renal failure Plan: Stable, status post flap reconstruction 01/04/19, continue BAEZ and proph Rx, pain management Consultation Date/Type/Reason Admit Date/Time Nov 30, 2018 at 20:47 Initial Consult Date 12/02/18 Type of Consult id Requesting Provider: TYE PETIT Date/Time of Note DATE: 01/06/19 TIME: 13:48 Exam/Review of Systems Exam Vitals Vital Signs Date Temp Pulse Resp B/P (MAP) Pulse Ox O2 O2 Flow FiO2 Time Delivery Rate 01/06/19 98.0 79 18 85/56 (66) 95 08:14 01/04/19 Room Air 18:25 01/04/19 8.0 16:41 Intake and Output 01/05/19 01/05/19 01/06/19 1515:00 23:00 07:00 IntakeIntake Total 1400 ml 500 ml OutputOutput Total 660 ml 835 ml 1110 ml BalanceBalance 740 ml -335 ml -1110 ml Results Result Diagram: 01/05/19 0958 01/05/1958 Results 24hrs Laboratory Tests Test 01/06/19 06:35 Lab Scanned Report BLOOD TRANSFUSION Medications Medication Current Medications Acetaminophen (Tylenol Liquid) 650 mg Q6H PRN PO PAIN LEVEL 1-3 OR FEVER Last administered on 12/14/18 01:51; Admin Dose 650 MG; Start 11/30/18 at 21:00 Emtricitabine/ Tenofovir (Truvada) 1 tab DAILY PO Last administered on 01/06/19 09:02; Admin Dose 1 TAB; Start 12/06/18 at 09:00 Prednisolone Acetate (Pred-Forte 1%) 1 drop DAILY LEFT EYE Last administered on 01/06/19 09:03; Admin Dose 1 DROP; Start 12/05/18 at 19:00 Atropine Sulfate (Atropine 1% Oph) 1 drop BID LEFT EYE Last administered on 01/06/19 09:03; Admin Dose 1 DROP; Start 12/07/18 at 21:00 Guaifenesin (Robitussin Liquid Cup) 100 mg Q4H PRN PO COUGH Last administered on 12/05/18 20:07; Admin Dose 100 MG; Start 12/05/18 at 19:00 Lactulose (Enulose) 20 gm DAILY PRN PO CONSTIPATION Last administered on 12/07/18 17:07; Admin Dose 20 GM; Start 12/07/18 at 16:00 Multivitamins/ Minerals (Theragran-M) 1 tab DAILY PO Last administered on 01/06/19 09:02; Admin Dose 1 TAB; Start 12/09/18 at 09:00 Ascorbic Acid (Vitamin C) 500 mg BID PO Last administered on 01/06/19 09:03; Admin Dose 500 MG; Start 12/09/18 at 09:00 Zinc Sulfate (Zinc Sulfate) 220 mg DAILY PO Last administered on 01/06/19 09:02; Admin Dose 220 MG; Start 12/09/18 at 09:00 Ibuprofen (Motrin) 400 mg Q6H PRN PO MILD PAIN(1-3) OR TEMP>38C Last administered on 12/12/18 08:39; Admin Dose 400 MG; Start 12/10/18 at 21:00 Trimethoprim/ Sulfamethoxazole (Bactrim (Ds)) 1 tab DAILY PO Last administered on 01/06/19 09:02; Admin Dose 1 TAB; Start 12/12/18 at 12:00 Alteplase, Recombinant (Cathflo (Activase)) 2 mg MAY REPEAT X1 PRN CATHETER IF CATHETER REMAINS OCCULUDED Last administered on 12/12/18 18:04; Admin Dose 2 MG; Start 12/12/18 at 14:30 Fluconazole (Diflucan) 100 mg DAILY PO Last administered on 01/06/19 09:02; Admin Dose 100 MG; Start 12/13/18 at 11:30 Morphine Sulfate (morphine) 4 mg DAILY PRN IV SEVERE PAIN LEVEL 7-10 Last administered on 01/03/19 09:56; Admin Dose 4 MG; Start 12/16/18 at 15:30 Zidovudine (Retrovir) 300 mg BID PO Last administered on 01/06/19 09:02; Admin Dose 300 MG; Start 12/21/18 at 21:00 Calcium Carbonate (Tums) 500 mg Q6H PRN PO DISTENSION/GAS/BLOATING Last administered on 12/24/18 06:29; Admin Dose 500 MG; Start 12/23/18 at 13:00 Lactobacillus Acidophilus/ Rhamnosus (Culturelle) 1 cap BID PO Last administered on 01/06/19 09:02; Admin Dose 1 CAP; Start 12/26/18 at 09:00 Famotidine (Pepcid) 20 mg DAILY PO Last administered on 01/06/19 09:02; Admin Dose 20 MG; Start 12/26/18 at 09:00 Morphine Sulfate (morphine) 1 mg Q4H PRN IV MOD TO SEVERE PAIN Last administered on 01/06/19 09:59; Admin Dose 1 MG; Start 12/26/18 at 14:30 Zolpidem Tartrate (Ambien) 5 mg HS MAY REPEAT X 1 PRN PO INSOMNIA Last administered on 01/03/19 01:37; Admin Dose 5 MG; Start 12/31/18 at 02:30 Enoxaparin Sodium (Lovenox) 40 mg DAILY SC Last administered on 01/06/19 09:02; Admin Dose 40 MG; Start 01/06/19 at 09:00 Sodium Hypochlorite (Dakins Diluted ()) 1 applic Q4 TP Last administered on 01/04/19 06:10; Admin Dose 1 APPLIC; Start 01/03/19 at 17:00 Acetaminophen/ Hydrocodone Bitart ([place] (10/325)) 1 tab Q3 PRN PO MODERATE LEIGH N LEVEL 4-6 Last administered on 01/06/19 09:52; Admin Dose 1 TAB; Start 01/05/19 at 12:00 Ondansetron HCl (Zofran Inj) 4 mg Q4 PRN IV NAUSEA AND/OR VOMITING; Start 01/05/19 at 12:00 Docusate Sodium (Colace) 100 mg BID PRN PO CONSTIPATION; Start 01/06/19 at 12:00 CRYSTAL RAMIREZ NP Jan 06, 2019 13:49
[2019-01-06 14:40] VITALS: BP 87/57; PULSE 87; RESP 18
[2019-01-06 20:16] VITALS: BP 93/51; PULSE 89; RESP 18
[2019-01-07] MEDS: DAKINS 0.0125%(1/40) 473 ML SOLUTION TP SCH ×6 (00:30→21:00)
[2019-01-07] MEDS: HYDROCODONE/APAP (10/325) TAB PO PRN ×5 (00:44→19:54)
[2019-01-07 02:26] VITALS: BP 88/57; PULSE 77; RESP 19
[2019-01-07] MEDS: ZOLPIDEM 5 MG TAB PO PRN (02:46)
[2019-01-07] MEDS: morphine 2 MG INJ IV PRN ×5 (06:20→22:56)
[2019-01-07 08:11] VITALS: BP 91/62; PULSE 80; RESP 16
[2019-01-07] MEDS: ENOXAPARIN 40 MG/0.4 ML SYG SC SCH (08:26)
[2019-01-07] MEDS: ZINC SULFATE 220 MG CAP PO SCH (08:26)
[2019-01-07] MEDS: ZIDOVUDINE 300 MG TAB PO SCH ×2 (08:26→21:01)
[2019-01-07] MEDS: LACTOBACILLUS RHAMNOSUS CAP PO SCH ×2 (08:26→21:01)
[2019-01-07] MEDS: TRIMETHOPRIM/SULFAMETHOX (DS) TAB PO SCH (08:26)
[2019-01-07] MEDS: ATROPINE 1% 5 ML OPH LEFT EYE SCH ×2 (08:27→21:02)
[2019-01-07] MEDS: ASCORBIC ACID 500 MG TAB PO SCH ×2 (08:27→21:01)
[2019-01-07] MEDS: EMTRICITABINE/TENOFOVIR TAB PO SCH (08:27)
[2019-01-07] MEDS: FAMOTIDINE 20 MG TAB PO SCH (08:27)
[2019-01-07] MEDS: MULTIVITAMINS/MINERALS TAB PO SCH (08:27)
[2019-01-07] MEDS: FLUCONAZOLE 100 MG TAB PO SCH (08:27)
[2019-01-07] MEDS: PREDNISOLONE ACET 1% 5 ML OPH LEFT EYE SCH (08:28)
--- NOTE | 2019-01-07 10:27 | CONS ---
Assessment/Plan Assessment/Plan Hospital Course (Demo Recall) All noted, no acute events over night, remains afebrile Microbiology: Wound culture grew MRSA, repeat cx + Kleb, E coli, MRSA====> treated Antimicrobials: Truvada, Retrovir, Diflucan, Bactrim Physical examination: Well-developed well-nourished middle-aged man who is alert in no distress. Head atraumatic normocephalic sclera nonicteric neck is supple chest rise symmetrical breath sounds clear heart: S1-S2 abdomen soft bowel sounds present extremities without cyanosis. Skin: Patient has dressing over his left side of the abdomen and bilateral wound vacs to hips Assessment: 1. S/p sepsis 2. Fornier's gangrene and necrotizing fasciitis, status post multiple recurrent debridement, s/p skin grafts/flap reconstruction 01/04/19 3. AIDS===> CD4 12/13 143 4. Status post renal failure Plan: Stable, continue BAEZ and proph Rx, pain management, wound care per plastic surgery Consultation Date/Type/Reason Admit Date/Time Nov 30, 2018 at 20:47 Initial Consult Date 12/02/18 Type of Consult id Requesting Provider: TYE PETIT Date/Time of Note DATE: 01/07/19 TIME: 10:25 Exam/Review of Systems Exam Vitals Vital Signs Date Temp Pulse Resp B/P (MAP) Pulse Ox O2 O2 Flow FiO2 Time Delivery Rate 01/07/19 98.5 80 16 91/62 (72) 96 08:11 01/04/19 Room Air 18:25 01/04/19 8.0 16:41 Intake and Output 01/06/19 01/06/19 01/07/19 1515:00 23:00 07:00 IntakeIntake Total 360 ml 1840 ml 300 ml OutputOutput Total 505 ml 1050 ml 2120 ml BalanceBalance -145 ml 790 ml -1820 ml Results Result Diagram: 01/07/19 0843 01/07/19 0843 Results 24hrs Laboratory Tests Test 01/07/19 08:43 White Blood Count 6.4 # Red Blood Count 2.85 L Hemoglobin 8.6 L Hematocrit 26.5 L Mean Corpuscular Volume 93.0 Mean Corpuscular Hemoglobin 30.2 Mean Corpuscular Hemoglobin Concent 32.5 Red Cell Distribution Width 19.9 H Platelet Count 391 Mean Platelet Volume 9.0 Immature Granulocytes % 0.600 H Neutrophils % 78.2 H Lymphocytes % 14.2 L Monocytes % 4.9 Eosinophils % 1.6 Basophils % 0.5 Nucleated Red Blood Cells % 0.0 Immature Granulocytes # 0.040 H Neutrophils # 5.0 Lymphocytes # 0.9 Monocytes # 0.3 Eosinophils # 0.1 Basophils # 0.0 Nucleated Red Blood Cells # 0.0 Sodium Level 134 L Potassium Level 4.1 Chloride Level 97 Carbon Dioxide Level 32 H Anion Gap 5 Blood Urea Nitrogen 10 Creatinine 0.67 Est Glomerular Filtrat Rate mL/min > 60 Glucose Level 92 # Calcium Level 8.9 Medications Medication Current Medications Acetaminophen (Tylenol Liquid) 650 mg Q6H PRN PO PAIN LEVEL 1-3 OR FEVER Last administered on 12/14/18 01:51; Admin Dose 650 MG; Start 11/30/18 at 21:00 Emtricitabine/ Tenofovir (Truvada) 1 tab DAILY PO Last administered on 01/07/19 08:27; Admin Dose 1 TAB; Start 12/06/18 at 09:00 Prednisolone Acetate (Pred-Forte 1%) 1 drop DAILY LEFT EYE Last administered on 01/07/19 08:28; Admin Dose 1 DROP; Start 12/05/18 at 19:00 Atropine Sulfate (Atropine 1% Oph) 1 drop BID LEFT EYE Last administered on 01/07/19 08:27; Admin Dose 1 DROP; Start 12/07/18 at 21:00 Guaifenesin (Robitussin Liquid Cup) 100 mg Q4H PRN PO COUGH Last administered on 12/05/18 20:07; Admin Dose 100 MG; Start 12/05/18 at 19:00 Lactulose (Enulose) 20 gm DAILY PRN PO CONSTIPATION Last administered on 12/07/18 17:07; Admin Dose 20 GM; Start 12/07/18 at 16:00 Multivitamins/ Minerals (Theragran-M) 1 tab DAILY PO Last administered on 01/07/19 08:27; Admin Dose 1 TAB; Start 12/09/18 at 09:00 Ascorbic Acid (Vitamin C) 500 mg BID PO Last administered on 01/07/19 08:27; Admin Dose 500 MG; Start 12/09/18 at 09:00 Zinc Sulfate (Zinc Sulfate) 220 mg DAILY PO Last administered on 01/07/19 08:26; Admin Dose 220 MG; Start 12/09/18 at 09:00 Ibuprofen (Motrin) 400 mg Q6H PRN PO MILD PAIN(1-3) OR TEMP>38C Last a dministered on 12/12/18 08:39; Admin Dose 400 MG; Start 12/10/18 at 21:00 Trimethoprim/ Sulfamethoxazole (Bactrim (Ds)) 1 tab DAILY PO Last administered on 01/07/19 08:26; Admin Dose 1 TAB; Start 12/12/18 at 12:00 Alteplase, Recombinant (Cathflo (Activase)) 2 mg MAY REPEAT X1 PRN CATHETER IF CATHETER REMAINS OCCULUDED Last administered on 12/12/18 18:04; Admin Dose 2 MG; Start 12/12/18 at 14:30 Fluconazole (Diflucan) 100 mg DAILY PO Last administered on 01/07/19 08:27; Admin Dose 100 MG; Start 12/13/18 at 11:30 Morphine Sulfate (morphine) 4 mg DAILY PRN IV SEVERE PAIN LEVEL 7-10 Last ad ministered on 01/03/19 09:56; Admin Dose 4 MG; Start 12/16/18 at 15:30 Zidovudine (Retrovir) 300 mg BID PO Last administered on 01/07/19 08:26; Admin Dose 300 MG; Start 12/21/18 at 21:00 Calcium Carbonate (Tums) 500 mg Q6H PRN PO DISTENSION/GAS/BLOATING Last administered on 12/24/18 06:29; Admin Dose 500 MG; Start 12/23/18 at 13:00 Lactobacillus Acidophilus/ Rhamnosus (Culturelle) 1 cap BID PO Last administered on 01/07/19 08:26; Admin Dose 1 CAP; Start 12/26/18 at 09:00 Famotidine (Pepcid) 20 mg DAILY PO Last administered on 01/07/19 08:27; Admin Dose 20 MG; Start 12/26/18 at 09:00 Morphine Sulfate (morphine) 1 mg Q4H PRN IV MOD TO SEVERE PAIN Last administered on 01/07/19 10:22; Admin Dose 1 MG; Start 12/26/18 at 14:30 Zolpidem Tartrate (Ambien) 5 mg HS MAY REPEAT X 1 PRN PO INSOMNIA Last administered on 01/07/19 02:46; Admin Dose 5 MG; Start 12/31/18 at 02:30 Enoxaparin Sodium (Lovenox) 40 mg DAILY SC Last administered on 01/07/19 08:26; Admin Dose 40 MG; Start 01/06/19 at 09:00 Sodium Hypochlorite (Dakins Diluted ()) 1 applic Q4 TP Last administered on 01/04/19at 06:10; Admin Dose 1 APPLIC; Start 01/03/19 at 17:00 Acetaminophen/ Hydrocodone Bitart ([place] ()) 1 tab Q3 PRN PO MODERATE PAIN LEVEL 4-6 Last administered on 01/07/19at 08:27; Admin Dose 1 TAB; Start 01/05/19 at 12:00 Ondansetron HCl (Zofran Inj) 4 mg Q4 PRN IV NAUSEA AND/OR VOMITING; Start 01/05 at 12:00 Docusate Sodium (Colace) 100 mg BID PRN PO CONSTIPATION; Start 01/06/19 at 12:00 CRYSTAL RAMIREZ NP Jan 07, 2019 10:27
[2019-01-07 15:00] VITALS: BP 86/57; PULSE 78; RESP 16
--- NOTE | 2019-01-07 15:36 | PN ---
Date/Time of Note Date/Time of Note DATE: 01/07/19 TIME: 15:35 Assessment/Plan VTE Prophylaxis Risk score (from Nsg)>0 risk: 7 SCD applied (from Nsg): Yes SCD contraindicated: low risk/ambulating Pharmacological prophylaxis: LMWH Lines/Catheters IV Catheter Type (from Nrsg): Saline Lock Urinary Cath still in place: No Assessment/Plan Hospital Course A/P Nida gangrene: sp debridement*3. POD 3 grafting/ flap, cont wound care, offloading. may need specialty bed. HIV/ AIDS last CD4 count 143, on therapy. Patient does not wish to share this info with family Immunocompromised status; may impede wound healing Hepatitis B Past tobacco Past drugs: Cocaine/ marijuana Abn LFTs Past alcoholism Ac Encephalopathy stable/resolved Acute renal failure, resolved Postop transient respiratory failure extubated promptly SIADH/hyponatremia stable Left eye blindness PICC line associated infection? Diarrhea, Colace MiraLAX associated, resolved. Ftt, would benefit from SNF/ rehab for wound care. vs home health Adjustment disorder counseling if feasible Anemia; stable, abl post surgery likely, transfused. S: 12/23 no distress. Sp multiple debridement; Has wound vacs. Wounds improved. Presently stable and fit for transfer to tertiary care for grafting. 12/24: Diarrhea but no abdominal pain or fever. On Colace MiraLAX. 12/25: No abd pain/ fever 01/02: No fever diarrhea. Frustrated awaiting assistance from plastic surgery options for skin graft. 01/03 no distress for surgery tomorrow. 01/04: events noted. for surgery today 01/05: Moderate pain. No fever diarrhea 01/06 mild seepage at YA site. No fever dyspnea. Pain controlled. Wishes to go home and have home health. 01/07: Moderate pain with movement and dressing change. Will start Motrin [id number] and add Cymbalta. O: vss -cultures: MRSA, Klebsiella, E. coli PE No pallor Regular no mrg Clear Bs dimin mod tender, no r/r/g; wounds dressed. YA intact No edema Result Diagram: 01/07/19 0843 01/07/19 0843 Results 24hrs Laboratory Tests Test 01/07/19 08:43 White Blood Count 6.4 # Red Blood Count 2.85 L Hemoglobin 8.6 L Hematocrit 26.5 L Mean Corpuscular Volume 93.0 Mean Corpuscular Hemoglobin 30.2 Mean Corpuscular Hemoglobin Concent 32.5 Red Cell Distribution Width 19.9 H Platelet Count 391 Mean Platelet Volume 9.0 Immature Granulocytes % 0.600 H Neutrophils % 78.2 H Lymphocytes % 14.2 L Monocytes % 4.9 Eosinophils % 1.6 Basophils % 0.5 Nucleated Red Blood Cells % 0.0 Immature Granulocytes # 0.040 H Neutrophils # 5.0 Lymphocytes # 0.9 Monocytes # 0.3 Eosinophils # 0.1 Basophils # 0.0 Nucleated Red Blood Cells # 0.0 Sodium Level 134 L Potassium Level 4.1 Chloride Level 97 Carbon Dioxide Level 32 H Anion Gap 5 Blood Urea Nitrogen 10 Creatinine 0.67 Est Glomerular Filtrat Rate mL/min > 60 Glucose Level 92 # Calcium Level 8.9 Exam/Review of Systems Exam Vitals Vital Signs Date Temp Pulse Resp B/P (MAP) Pulse Ox O2 O2 Flow FiO2 Time Delivery Rate 01/07/19 98.5 80 16 91/62 (72) 96 08:11 01/04/19 Room Air 18:25 01/04/19 8.0 16:41 Intake and Output 01/06/19 01/06/19 01/07/19 1515:00 23:00 07:00 IntakeIntake Total 360 ml 1840 ml 300 ml OutputOutput Total 505 ml 1050 ml 2120 ml BalanceBalance -145 ml 790 ml -1820 ml Results Results 24hrs Laboratory Tests Test 01/07/19 08:43 White Blood Count 6.4 # Red Blood Count 2.85 L Hemoglobin 8.6 L Hematocrit 26.5 L Mean Corpuscular Volume 93.0 Mean Corpuscular Hemoglobin 30.2 Mean Corpuscular Hemoglobin Concent 32.5 Red Cell Distribution Width 19.9 H Platelet Count 391 Mean Platelet Volume 9.0 Immature Granulocytes % 0.600 H Neutrophils % 78.2 H Lymphocytes % 14.2 L Monocytes % 4.9 Eosinophils % 1.6 Basophils % 0.5 Nucleated Red Blood Cells % 0.0 Immature Granulocytes # 0.040 H Neutrophils # 5.0 Lymphocytes # 0.9 Monocytes # 0.3 Eosinophils # 0.1 Basophils # 0.0 Nucleated Red Blood Cells # 0.0 Sodium Level 134 L Potassium Level 4.1 Chloride Level 97 Carbon Dioxide Level 32 H Anion Gap 5 Blood Urea Nitrogen 10 Creatinine 0.67 Est Glomerular Filtrat Rate mL/min > 60 Glucose Level 92 # Calcium Level 8.9 Medications Medication Current Medications Acetaminophen (Tylenol Liquid) 650 mg Q6H PRN PO PAIN LEVEL 1-3 OR FEVER Last administered on 12/14/18 01:51; Admin Dose 650 MG; Start 11/30/18 at 21:00 Emtricitabine/ Tenofovir (Truvada) 1 tab DAILY PO Last administered on 01/07/19 08:27; Admin Dose 1 TAB; Start 12/06/18 at 09:00 Prednisolone Acetate (Pred-Forte 1%) 1 drop DAILY LEFT EYE Last administered on 01/07/19 08:28; Admin Dose 1 DROP; Start 12/05/18 at 19:00 Atropine Sulfate (Atropine 1% Oph) 1 drop BID LEFT EYE Last administered on 01/07/19 08:27; Admin Dose 1 DROP; Start 12/07/18 at 21:00 Guaifenesin (Robitussin Liquid Cup) 100 mg Q4H PRN PO COUGH Last administered on 12/05/18 20:07; Admin Dose 100 MG; Start 12/05/18 at 19:00 Lactulose (Enulose) 20 gm DAILY PRN PO CONSTIPATION Last administered on 12/07/18 17:07; Admin Dose 20 GM; Start 12/07/18 at 16:00 Multivitamins/ Minerals (Theragran-M) 1 tab DAILY PO Last administered on 01/07/19 08:27; Admin Dose 1 TAB; Start 12/09/18 at 09:00 Ascorbic Acid (Vitamin C) 500 mg BID PO Last administered on 01/07/19 08:27; Admin Dose 500 MG; Start 12/09/18 at 09:00 Zinc Sulfate (Zinc Sulfate) 220 mg DAILY PO Last administered on 01/07/19 08:26; Admin Dose 220 MG; Start 12/09/18 at 09:00 Ibuprofen (Motrin) 400 mg Q6H PRN PO MILD PAIN(1-3) OR TEMP>38C Last administered on 12/12/18 08:39; Admin Dose 400 MG; Start 12/10/18 at 21:00 Trimethoprim/ Sulfamethoxazole (Bactrim (Ds)) 1 tab DAILY PO Last administered on 01/07/19 08:26; Admin Dose 1 TAB; Start 12/12/18 at 12:00 Alteplase, Recombinant (Cathflo (Activase)) 2 mg MAY REPEAT X1 PRN CATHETER IF CATHETER REMAINS OCCULUDED Last administered on 12/12/18 18:04; Admin Dose 2 MG; Start 12/12/18 at 14:30 Fluconazole (Diflucan) 100 mg DAILY PO Last administered on 01/07/19 08:27; Admin Dose 100 MG; Start 12/13/18 at 11:30 Zidovudine (Retrovir) 300 mg BID PO Last administered on 01/07/19 08:26; Admin Dose 300 MG; Start 12/21/18 at 21:00 Calcium Carbonate (Tums) 500 mg Q6H PRN PO DISTENSION/GAS/BLOATING Last administered on 12/24/18 06:29; Admin Dose 500 MG; Start 12/23/18 at 13:00 Lactobacillus Acidophilus/ Rhamnosus (Culturelle) 1 cap BID PO Last administered on 01/07/19 08:26; Admin Dose 1 CAP; Start 12/26/18 at 09:00 Famotidine (Pepcid) 20 mg DAILY PO Last administered on 01/07/19 08:27; Admin Dose 20 MG; Start 12/26/18 at 09:00 Zolpidem Tartrate (Ambien) 5 mg HS MAY REPEAT X 1 PRN PO INSOMNIA Last administered on 01/07/19 02:46; Admin Dose 5 MG; Start 12/31/18 at 02:30 Enoxaparin Sodium (Lovenox) 40 mg DAILY SC Last administered on 01/07/19 08:26; Admin Dose 40 MG; Start 01/06/19 at 09:00 Sodium Hypochlorite (Dakins Diluted (40)) 1 applic Q4 TP Last administered on 01/04/19 06:10; Admin Dose 1 APPLIC; Start 01/03/19 at 17:00 Acetaminophen/ Hydrocodone Bitart ([place] (10/325)) 1 tab Q3 PRN PO MODERATE PA IN LEVEL 4-6 Last administered on 01/07/19 13:55; Admin Dose 1 TAB; Start 01/05/19 at 12:00 Ondansetron HCl (Zofran Inj) 4 mg Q4 PRN IV NAUSEA AND/OR VOMITING; Start 01/05/19 at 12:00 Docusate Sodium (Colace) 100 mg BID PRN PO CONSTIPATION; Start 01/06/19 at 12:00 Morphine Sulfate (morphine) 4 mg Q4 PRN IV SEVERE PAIN LEVEL 7-10; Start 01/07/19 at 16:00; Status UNV Morphine Sulfate (morphine) 2 mg Q3 PRN IV MOD TO SEVERE PAIN; Start 01/07/19 at 16:00; Status UNV Duloxetine HCl (Cymbalta) 20 mg DAILY PO ; Start 01/08/19 at 09:00; Status UNV Ibuprofen (Motrin) 800 mg TID PO ; Start 01/07/19 at 21:00; Stop 01/09/19 at 23:00; Status UNV YANELY MOYA MD Jan 07, 2019 15:36
[2019-01-07 20:01] VITALS: BP 91/53; PULSE 88; RESP 19
[2019-01-07] MEDS: IBUPROFEN 800 MG TAB PO SCH (21:01)
[2019-01-08] MEDS: ZOLPIDEM 5 MG TAB PO PRN ×2 (00:24→22:20)
[2019-01-08] MEDS: DAKINS 0.0125%(1/40) 473 ML SOLUTION TP SCH ×6 (01:00→21:00)
[2019-01-08 08:20] VITALS: BP 97/64; PULSE 80; RESP 16
[2019-01-08] MEDS: MULTIVITAMINS/MINERALS TAB PO SCH (10:16)
[2019-01-08] MEDS: EMTRICITABINE/TENOFOVIR TAB PO SCH (10:16)
[2019-01-08] MEDS: LACTOBACILLUS RHAMNOSUS CAP PO SCH ×2 (10:17→20:42)
[2019-01-08] MEDS: ZINC SULFATE 220 MG CAP PO SCH (10:17)
[2019-01-08] MEDS: FAMOTIDINE 20 MG TAB PO SCH (10:17)
[2019-01-08] MEDS: DULOXETINE 20 MG CAP DR PO SCH (10:17)
[2019-01-08] MEDS: TRIMETHOPRIM/SULFAMETHOX (DS) TAB PO SCH (10:17)
[2019-01-08] MEDS: IBUPROFEN 800 MG TAB PO SCH ×3 (10:18→20:57)
[2019-01-08] MEDS: FLUCONAZOLE 100 MG TAB PO SCH (10:18)
[2019-01-08] MEDS: ZIDOVUDINE 300 MG TAB PO SCH ×2 (10:18→20:41)
[2019-01-08] MEDS: ASCORBIC ACID 500 MG TAB PO SCH ×2 (10:19→20:41)
[2019-01-08] MEDS: ENOXAPARIN 40 MG/0.4 ML SYG SC SCH (10:27)
[2019-01-08] MEDS: PREDNISOLONE ACET 1% 5 ML OPH LEFT EYE SCH (10:28)
[2019-01-08] MEDS: ATROPINE 1% 5 ML OPH LEFT EYE SCH ×2 (10:28→20:43)
[2019-01-08] MEDS: morphine 2 MG INJ IV PRN ×4 (10:39→23:31)
--- NOTE | 2019-01-08 10:53 | CONS ---
Assessment/Plan Assessment/Plan Hospital Course (Demo Recall) Alert, feels good Microbiology: Wound culture grew MRSA, repeat cx + Kleb, E coli, MRSA====> treated Antimicrobials: Truvada, Retrovir, Diflucan, Bactrim Physical examination: Well-developed well-nourished middle-aged man who is alert in no distress. Head atraumatic normocephalic sclera nonicteric neck is supple chest rise symmetrical breath sounds clear heart: S1-S2 abdomen soft bowel sounds present extremities without cyanosis. Skin: Patient has dressing over his left side of the abdomen and bilateral wound vacs to hips Assessment: 1. S/p sepsis 2. Fornier's gangrene and necrotizing fasciitis, status post multiple recurrent debridement, s/p skin grafts/flap reconstruction 01/04/19 3. AIDS===> CD4 12/13 143 4. Status post renal failure Plan: Remains stable, continue BAEZ and proph Rx, pain management, wound care per plastic surgery Consultation Date/Type/Reason Admit Date/Time Nov 30, 2018 at 20:47 Initial Consult Date 12/02/18 Type of Consult id Requesting Provider: TYE PETIT Date/Time of Note DATE: 01/08/19 TIME: 10:53 Exam/Review of Systems Exam Vitals Vital Signs Date Temp Pulse Resp B/P (MAP) Pulse Ox O2 O2 Flow FiO2 Time Delivery Rate 01/08/19 98.1 80 16 97/64 (75) 94 08:20 01/07/19 Room Air 20:01 01/04/19 8.0 16:41 Intake and Output 01/07/19 01/07/19 01/08/19 1515:00 23:00 07:00 IntakeIntake Total 700 ml 580 ml OutputOutput Total 620 ml 745 ml BalanceBalance 80 ml -165 ml Results Result Diagram: 01/07/19 0843 01/07/19 0843 Medications Medication Current Medications Acetaminophen (Tylenol Liquid) 650 mg Q6H PRN PO PAIN LEVEL 1-3 OR FEVER Last administered on 12/14/18at 01:51; Admin Dose 650 MG; Start 11/30/18 at 21:00 Emtricitabine/ Tenofovir (Truvada) 1 tab DAILY PO Last administered on 01/08/19at 10:16; Admin Dose 1 TAB; Start 12/06/18 at 09:00 Prednisolone Acetate (Pred-Forte 1%) 1 drop DAILY LEFT EYE Last administered on 01/08/19 10:28; Admin Dose 1 DROP; Start 12/05/18 at 19:00 Atropine Sulfate (Atropine 1% Oph) 1 drop BID LEFT EYE Last administered on 01/08/19 10:28; Admin Dose 1 DROP; Start 12/07/18 at 21:00 Guaifenesin (Robitussin Liquid Cup) 100 mg Q4H PRN PO COUGH Last administered on 12/05/18 20:07; Admin Dose 100 MG; Start 12/05/18 at 19:00 Lactulose (Enulose) 20 gm DAILY PRN PO CONSTIPATION Last administered on 12/07/18 17:07; Admin Dose 20 GM; Start 12/07/18 at 16:00 Multivitamins/ Minerals (Theragran-M) 1 tab DAILY PO Last administered on 01/08/19 10:16; Admin Dose 1 TAB; Start 12/09/18 at 09:00 Ascorbic Acid (Vitamin C) 500 mg BID PO Last administered on 01/08/19 10:19; Admin Dose 500 MG; Start 12/09/18 at 09:00 Zinc Sulfate (Zinc Sulfate) 220 mg DAILY PO Last administered on 01/08/19 10:17; Admin Dose 220 MG; Start 12/09/18 at 09:00 Ibuprofen (Motrin) 400 mg Q6H PRN PO MILD PAIN(1-3) OR TEMP>38C Last administered on 12/12/18 08:39; Admin Dose 400 MG; Start 12/10/18 at 21:00 Trimethoprim/ Sulfamethoxazole (Bactrim (Ds)) 1 tab DAILY PO Last administered on 01/08/19 10:17; Admin Dose 1 TAB; Start 12/12/18 at 12:00 Alteplase, Recombinant (Cathflo (Activase)) 2 mg MAY REPEAT X1 PRN CATHETER IF CATHETER REMAINS OCCULUDED Last administered on 12/12/18 18:04; Admin Dose 2 MG; Start 12/12/18 at 14:30 Fluconazole (Diflucan) 100 mg DAILY PO Last administered on 01/08/19 10:18; Admin Dose 100 MG; Start 12/13/18 at 11:30 Zidovudine (Retrovir) 300 mg BID PO Last administered on 01/08/19 10:18; Admin Dose 300 MG; Start 12/21/18 at 21:00 Calcium Carbonate (Tums) 500 mg Q6H PRN PO DISTENSION/GAS/BLOATING Last administered on 12/24/18 06:29; Admin Dose 500 MG; Start 12/23/18 at 13:00 Lactobacillus Acidophilus/ Rhamnosus (Culturelle) 1 cap BID PO Last administered on 01/08/19 10:17; Admin Dose 1 CAP; Start 12/26/18 at 09:00 Famotidine (Pepcid) 20 mg DAILY PO Last administered on 01/08/19 10:17; Admin Dose 20 MG; Start 12/26/18 at 09:00 Zolpidem Tartrate (Ambien) 5 mg HS MAY REPEAT X 1 PRN PO INSOMNIA Last administered on 01/08/19 00:24; Admin Dose 5 MG; Start 12/31/18 at 02:30 Enoxaparin Sodium (Lovenox) 40 mg DAILY SC Last administered on 01/08/19 10:27; Admin Dose 40 MG; Start 01/06/19 at 09:00 Sodium Hypochlorite (Dakins Diluted (40)) 1 applic Q4 TP Last administered on 01/04/19 06:10; Admin Dose 1 APPLIC; Start 01/03/19 at 17:00 Acetaminophen/ Hydrocodone Bitart ([place] (10/325)) 1 tab Q3 PRN PO MODERATE PAIN LEVEL 4-6 Last administered on 01/07/19 19:54; Admin Dose 1 TAB; Start 01/05/19 at 12:00 Ondansetron HCl (Zofran Inj) 4 mg Q4 PRN IV NAUSEA AND/OR VOMITING; Start 01/05/19 at 12:00 Docusate Sodium (Colace) 100 mg BID PRN PO CONSTIPATION; Start 01/06/19 at 12:00 Morphine Sulfate (morphine) 4 mg Q4 PRN IV SEVERE PAIN LEVEL 7-10; Start 01/07/19 at 16:00 Morphine Sulfate (morphine) 2 mg Q3 PRN IV MOD TO SEVERE PAIN Last administered on 01/08/19 10:39; Admin Dose 2 MG; Start 01/07/19 at 16:00 Duloxetine HCl (Cymbalta) 20 mg DAILY PO Last administered on 01/08/19at 10:17; Admin Dose 20 MG; Start 01/08/19 at 09:00 Ibuprofen (Motrin) 800 mg TID PO Last administered on 01/08/19at 10:18; Admin Dose 800 MG; Start 01/07/19 at 21:00; Stop 01/09/19 at 23:00 CRYSTAL RAIMREZ NP Jan 08, 2019 10:53
--- NOTE | 2019-01-08 11:23 | PN ---
Date/Time of Note Date/Time of Note DATE: 01/08/19 TIME: 11:20 Assessment/Plan VTE Prophylaxis Risk score (from Nsg)>0 risk: 7 SCD applied (from Nsg): Yes SCD contraindicated: low risk/ambulating Pharmacological prophylaxis: LMWH Lines/Catheters IV Catheter Type (from Nrsg): Saline Lock Urinary Cath still in place: No Assessment/Plan Hospital Course A/P Nida gangrene: sp debridement*3. POD 4 flap reconstruction, cont wound care/ offloading. may need specialty bed. HIV/ AIDS last CD4 count 143, on therapy. Patient does not wish to share this info with family Immunocompromised status; may impede wound healing Hepatitis B Past tobacco Past drugs: Cocaine/ marijuana Abn LFTs Past alcoholism Ac Encephalopathy stable/resolved Acute renal failure, resolved Postop transient respiratory failure extubated promptly SIADH/hyponatremia stable Left eye blindness PICC line associated infection? Diarrhea, Colace MiraLAX associated, resolved. Ftt, would benefit from SNF/ rehab for wound care. vs home health Adjustment disorder counseling if feasible Anemia; stable, abl post surgery likely, transfused. S: 12/23 no distress. Sp multiple debridement; Has wound vacs. Wounds improved. Presently stable and fit for transfer to tertiary care for grafting. 12/24: Diarrhea but no abdominal pain or fever. On Colace MiraLAX. 12/25: No abd pain/ fever 01/02: No fever diarrhea. Frustrated awaiting assistance from plastic surgery options for skin graft. 01/03 no distress for surgery tomorrow. 01/04: events noted. for surgery today 01/05: Moderate pain. No fever diarrhea 01/06 mild seepage at YA site. No fever dyspnea. Pain controlled. Wishes to go home and have home health. 01/07: Moderate pain with movement and dressing change. Will start Motrin [id number] and add Cymbalta. 01/08: Mod pain but, he feels stable. No dyspnea fever. Anxious wants to go home but I did reinforce that it will be up to his surgeon upon wound care eval tomorrow. PT, arrange home health, picc care, and antibiotics.. O: vss -cultures: MRSA, Klebsiella, E. coli PE No pallor Regular no mrg Clear Bs dimin mod tender, no r/r/g; wounds dressed. YA intact No edema Result Diagram: 01/07/19 0843 01/07/19 0843 Exam/Review of Systems Exam Vitals Vital Signs Date Temp Pulse Resp B/P (MAP) Pulse Ox O2 O2 Flow FiO2 Time Delivery Rate 01/08/19 98.1 80 16 97/64 (75) 94 08:20 01/07/19 Room Air 20:01 01/04/19 8.0 16:41 Intake and Output 01/07/19 01/07/19 01/08/19 1515:00 23:00 07:00 IntakeIntake Total 700 ml 580 ml OutputOutput Total 620 ml 745 ml BalanceBalance 80 ml -165 ml Medications Medication Current Medications Acetaminophen (Tylenol Liquid) 650 mg Q6H PRN PO PAIN LEVEL 1-3 OR FEVER Last administered on 12/14/18 01:51; Admin Dose 650 MG; Start 11/30/18 at 21:00 Emtricitabine/ Tenofovir (Truvada) 1 tab DAILY PO Last administered on 01/08/19 10:16; Admin Dose 1 TAB; Start 12/06/18 at 09:00 Prednisolone Acetate (Pred-Forte 1%) 1 drop DAILY LEFT EYE Last administered on 01/08/19 10:28; Admin Dose 1 DROP; Start 12/05/18 at 19:00 Atropine Sulfate (Atropine 1% Oph) 1 drop BID LEFT EYE Last administered on 01/08/19 10:28; Admin Dose 1 DROP; Start 12/07/18 at 21:00 Guaifenesin (Robitussin Liquid Cup) 100 mg Q4H PRN PO COUGH Last administered on 12/05/18 20:07; Admin Dose 100 MG; Start 12/05/18 at 19:00 Lactulose (Enulose) 20 gm DAILY PRN PO CONSTIPATION Last administered on 12/07/18 17:07; Admin Dose 20 GM; Start 12/07/18 at 16:00 Multivitamins/ Minerals (Theragran-M) 1 tab DAILY PO Last administered on 01/08/19 10:16; Admin Dose 1 TAB; Start 12/09/18 at 09:00 Ascorbic Acid (Vitamin C) 500 mg BID PO Last administered on 01/08/19 10:19; Admin Dose 500 MG; Start 12/09/18 at 09:00 Zinc Sulfate (Zinc Sulfate) 220 mg DAILY PO Last administered on 01/08/19 10:17; Admin Dose 220 MG; Start 12/09/18 at 09:00 Ibuprofen (Motrin) 400 mg Q6H PRN PO MILD PAIN(1-3) OR TEMP>38C Last administered on 12/12/18 08:39; Admin Dose 400 MG; Start 12/10/18 at 21:00 Trimethoprim/ Sulfamethoxazole (Bactrim (Ds)) 1 tab DAILY PO Last administered on 01/08/19 10:17; Admin Dose 1 TAB; Start 12/12/18 at 12:00 Alteplase, Recombinant (Cathflo (Activase)) 2 mg MAY REPEAT X1 PRN CATHETER IF CATHETER REMAINS OCCULUDED Last administered on 12/12/18 18:04; Admin Dose 2 MG; Start 12/12/18 at 14:30 Fluconazole (Diflucan) 100 mg DAILY PO Last administered on 01/08/19 10:18; Admin Dose 100 MG; Start 12/13/18 at 11:30 Zidovudine (Retrovir) 300 mg BID PO Last administered on 01/08/19 10:18; Admin Dose 300 MG; Start 12/21/18 at 21:00 Calcium Carbonate (Tums) 500 mg Q6H PRN PO DISTENSION/GAS/BLOATING Last administered on 12/24/18 06:29; Admin Dose 500 MG; Start 12/23/18 at 13:00 Lactobacillus Acidophilus/ Rhamnosus (Culturelle) 1 cap BID PO Last adm inistered on 01/08/19 10:17; Admin Dose 1 CAP; Start 12/26/18 at 09:00 Famotidine (Pepcid) 20 mg DAILY PO Last administered on 01/08/19 10:17; Admin Dose 20 MG; Start 12/26/18 at 09:00 Zolpidem Tartrate (Ambien) 5 mg HS MAY REPEAT X 1 PRN PO INSOMNIA Last administered on 01/08/19 00:24; Admin Dose 5 MG; Start 12/31/18 at 02:30 Enoxaparin Sodium (Lovenox) 40 mg DAILY SC Last administered on 01/08/19 10:27; Admin Dose 40 MG; Start 01/06/19 at 09:00 Sodium Hypochlorite (Dakins Diluted ()) 1 applic Q4 TP Last administered on 01/04/19at 06:10; Admin Dose 1 APPLIC; Start 01/03/19 at 17:00 Acetaminophen/ Hydrocodone Bitart ([place] ()) 1 tab Q3 PRN PO MODERATE PAIN LEVEL 4-6 Last administered on 01/07/19at 19:54; Admin Dose 1 TAB; Start 01/05/19 at 12:00 Ondansetron HCl (Zofran Inj) 4 mg Q4 PRN IV NAUSEA AND/OR VOMITING; Start 01/05/19 at 12:00 Docusate Sodium (Colace) 100 mg BID PRN PO CONSTIPATION; Start 01/06/19 at 12:00 Morphine Sulfate (morphine) 4 mg Q4 PRN IV SEVERE PAIN LEVEL 7-10; Start 01/07/19 at 16:00 Morphine Sulfate (morphine) 2 mg Q3 PRN IV MOD TO SEVERE PAIN Last administered on 01/08/19at 10:39; Admin Dose 2 MG; Start 01/07/19 at 16:00 Duloxetine HCl (Cymbalta) 20 mg DAILY PO Last administered on 01/08/19at 10:17; Admin Dose 20 MG; Start 01/08/19 at 09:00 Ibuprofen (Motrin) 800 mg TID PO Last administered on 01/08/19at 10:18; Admin Dose 800 MG; Start 01/07/19 at 21:00; Stop 01/09/19 at 23:00 YANELY MOYA MD Jan 08, 2019 11:23
[2019-01-08 14:15] VITALS: BP 92/59; PULSE 78; RESP 16
[2019-01-08] MEDS: HYDROCODONE/APAP (10/325) TAB PO PRN (20:42)
[2019-01-08 20:51] VITALS: BP 90/57; PULSE 71; RESP 17
[2019-01-08] MEDS: IBUPROFEN 400 MG TAB PO PRN (20:51)
[2019-01-09] MEDS: DAKINS 0.0125%(1/40) 473 ML SOLUTION TP SCH ×4 (00:37→12:39)
[2019-01-09] MEDS: morphine 2 MG INJ IV PRN ×5 (05:07→20:32)
[2019-01-09 05:17] VITALS: BP 98/60; PULSE 89; RESP 17
[2019-01-09 07:58] VITALS: BP 98/67; PULSE 70; RESP 18
[2019-01-09] MEDS: ZIDOVUDINE 300 MG TAB PO SCH ×2 (08:07→20:31)
[2019-01-09] MEDS: ASCORBIC ACID 500 MG TAB PO SCH ×2 (08:08→20:32)
[2019-01-09] MEDS: HYDROCODONE/APAP (10/325) TAB PO PRN ×3 (08:08→20:31)
[2019-01-09] MEDS: DULOXETINE 20 MG CAP DR PO SCH (08:08)
[2019-01-09] MEDS: EMTRICITABINE/TENOFOVIR TAB PO SCH (08:08)
[2019-01-09] MEDS: FLUCONAZOLE 100 MG TAB PO SCH (08:09)
[2019-01-09] MEDS: IBUPROFEN 800 MG TAB PO SCH ×3 (08:09→20:32)
[2019-01-09] MEDS: ZINC SULFATE 220 MG CAP PO SCH (08:09)
[2019-01-09] MEDS: MULTIVITAMINS/MINERALS TAB PO SCH (08:09)
[2019-01-09] MEDS: LACTOBACILLUS RHAMNOSUS CAP PO SCH ×2 (08:09→20:32)
[2019-01-09] MEDS: FAMOTIDINE 20 MG TAB PO SCH (08:09)
[2019-01-09] MEDS: TRIMETHOPRIM/SULFAMETHOX (DS) TAB PO SCH (08:09)
[2019-01-09] MEDS: PREDNISOLONE ACET 1% 5 ML OPH LEFT EYE SCH (08:10)
[2019-01-09] MEDS: ATROPINE 1% 5 ML OPH LEFT EYE SCH ×2 (08:10→20:30)
[2019-01-09] MEDS: ENOXAPARIN 40 MG/0.4 ML SYG SC SCH (08:13)
--- NOTE | 2019-01-09 11:57 | CONS ---
Assessment/Plan Assessment/Plan Hospital Course (Demo Recall) No changes Microbiology: Wound culture grew MRSA, repeat cx + Kleb, E coli, MRSA====> treated Antimicrobials: Truvada, Retrovir, Diflucan, Bactrim Physical examination: Well-developed well-nourished middle-aged man who is alert in no distress. Head atraumatic normocephalic sclera nonicteric neck is supple chest rise symmetrical breath sounds clear heart: S1-S2 abdomen soft bowel sounds present extremities without cyanosis. Skin: Patient has dressing over his left side of the abdomen and bilateral wound vacs to hips Assessment: 1. S/p sepsis 2. Fornier's gangrene and necrotizing fasciitis, status post multiple recurrent debridement, s/p skin grafts/flap reconstruction 01/04/19 3. AIDS===> CD4 12/13 143 4. Status post renal failure Plan: Remains stable, continue BAEZ and proph Rx, pain management, wound care per plastic surgery Consultation Date/Type/Reason Admit Date/Time Nov 30, 2018 at 20:47 Initial Consult Date 12/02/18 Type of Consult id Requesting Provider: TYE PETIT Date/Time of Note DATE: 01/09/19 TIME: 11:56 Exam/Review of Systems Exam Vitals Vital Signs Date Temp Pulse Resp B/P (MAP) Pulse Ox O2 O2 Flow FiO2 Time Delivery Rate 01/09/19 97.7 70 18 98/67 (77) 96 07:58 01/09/19 Room Air 05:17 Intake and Output 01/08/19 01/08/19 01/09/19 1515:00 23:00 07:00 IntakeIntake Total 1180 ml 740 ml OutputOutput Total 1730 ml 320 ml 250 ml BalanceBalance -550 ml 420 ml -250 ml Results Result Diagram: 01/09/1990501/09/19 09 Results 24hrs Laboratory Tests Test 01/09/19 09:06 White Blood Count 4.2 #L Red Blood Count 2.97 L Hemoglobin 8.8 L Hematocrit 27.3 L Mean Corpuscular Volume 91.9 Mean Corpuscular Hemoglobin 29.6 Mean Corpuscular Hemoglobin Concent 32.2 Red Cell Distribution Width 20.0 H Platelet Count 483 #H Mean Platelet Volume 9.1 Immature Granulocytes % 0.200 Neutrophils % 67.0 Lymphocytes % 24.0 Monocytes % 6.7 Eosinophils % 1.4 Basophils % 0.7 Nucleated Red Blood Cells % 0.0 Immature Granulocytes # 0.010 Neutrophils # 2.8 Lymphocytes # 1.0 Monocytes # 0.3 Eosinophils # 0.1 Basophils # 0.0 Nucleated Red Blood Cells # 0.0 Sodium Level 135 Potassium Level 4.6 Chloride Level 102 Carbon Dioxide Level 28 Anion Gap 5 Blood Urea Nitrogen 14 Creatinine 0.62 Est Glomerular Filtrat Rate mL/min > 60 Glucose Level 91 Calcium Level 8.9 Total Bilirubin 0.3 Direct Bilirubin 0.00 Indirect Bilirubin 0.3 Aspartate Amino Transf (AST/SGOT) 23 Alanine Aminotransferase (ALT/SGPT) 14 Alkaline Phosphatase 80 Total Protein 7.2 Albumin 3.2 L Globulin 4.00 H Albumin/Globulin Ratio 0.80 Prealbumin 26.1 Medications Medication Current Medications Acetaminophen (Tylenol Liquid) 650 mg Q6H PRN PO PAIN LEVEL 1-3 OR FEVER Last administered on 12/14/18 01:51; Admin Dose 650 MG; Start 11/30/18 at 21:00 Emtricitabine/ Tenofovir (Truvada) 1 tab DAILY PO Last administered on 01/09/19 08:08; Admin Dose 1 TAB; Start 12/06/18 at 09:00 Prednisolone Acetate (Pred-Forte 1%) 1 drop DAILY LEFT EYE Last administered on 01/09/19 08:10; Admin Dose 1 DROP; Start 12/05/18 at 19:00 Atropine Sulfate (Atropine 1% Oph) 1 drop BID LEFT EYE Last administered on 01/09/19 08:10; Admin Dose 1 DROP; Start 12/07/18 at 21:00 Guaifenesin (Robitussin Liquid Cup) 100 mg Q4H PRN PO COUGH Last administered on 12/05/18 20:07; Admin Dose 100 MG; Start 12/05/18 at 19:00 Lactulose (Enulose) 20 gm DAILY PRN PO CONSTIPATION Last administered on 12/07/18 17:07; Admin Dose 20 GM; Start 12/07/18 at 16:00 Multivitamins/ Minerals (Theragran-M) 1 tab DAILY PO Last administered on 01/09/19 08:09; Admin Dose 1 TAB; Start 12/09/18 at 09:00 Ascorbic Acid (Vitamin C) 500 mg BID PO Last administered on 01/09/19 08:08; Admin Dose 500 MG; Start 12/09/18 at 09:00 Zinc Sulfate (Zinc Sulfate) 220 mg DAILY PO Last administered on 01/09/19 08:09; Admin Dose 220 MG; Start 12/09/18 at 09:00 Ibuprofen (Motrin) 400 mg Q6H PRN PO MILD PAIN(1-3) OR TEMP>38C Last administered on 01/08/19 20:51; Admin Dose 400 MG; Start 12/10/18 at 21:00 Trimethoprim/ Sulfamethoxazole (Bactrim (Ds)) 1 tab DAILY PO Last administered on 01/09/19 08:09; Admin Dose 1 TAB; Start 12/12/18 at 12:00 Alteplase, Recombinant (Cathflo (Activase)) 2 mg MAY REPEAT X1 PRN CATHETER IF CATHETER REMAINS OCCULUDED Last administered on 12/12/18 18:04; Admin Dose 2 MG; Start 12/12/18 at 14:30 Fluconazole (Diflucan) 100 mg DAILY PO Last administered on 01/09/19 08:09; Admin Dose 100 MG; Start 12/13/18 at 11:30 Zidovudine (Retrovir) 300 mg BID PO Last administered on 01/09/19 08:07; Admin Dose 300 MG; Start 12/21/18 at 21:00 Calcium Carbonate (Tums) 500 mg Q6H PRN PO DISTENSION/GAS/BLOATING Last administered on 12/24/18 06:29; Admin Dose 500 MG; Start 12/23/18 at 13:00 Lactobacillus Acidophilus/ Rhamnosus (Culturelle) 1 cap BID PO Last administered on 01/09/19 08:09; Admin Dose 1 CAP; Start 12/26/18 at 09:00 Famotidine (Pepcid) 20 mg DAILY PO Last administered on 01/09/19 08:09; Admin Dose 20 MG; Start 12/26/18 at 09:00 Zolpidem Tartrate (Ambien) 5 mg HS MAY REPEAT X 1 PRN PO INSOMNIA Last administered on 01/08/19 22:20; Admin Dose 5 MG; Start 12/31/18 at 02:30 Enoxaparin Sodium (Lovenox) 40 mg DAILY SC Last administered on 01/09/19at 0 8:13; Admin Dose 40 MG; Start 01/06/19 at 09:00 Sodium Hypochlorite (Dakins Diluted ()) 1 applic Q4 TP Last administered on 01/04/19at 06:10; Admin Dose 1 APPLIC; Start 01/03/19 at 17:00 Acetaminophen/ Hydrocodone Bitart ([place] ()) 1 tab Q3 PRN PO MODERATE PAIN LEVEL 4-6 Last administered on 01/09/19at 08:08; Admin Dose 1 TAB; Start 01/05/19 at 12:00 Ondansetron HCl (Zofran Inj) 4 mg Q4 PRN IV NAUSEA AND/OR VOMITING; Start 01/05/19 at 12:00 Docusate Sodium (Colace) 100 mg BID PRN PO CONSTIPATION; Start 01/06/19 at 12:00 Morphine Sulfate (morphine) 4 mg Q4 PRN IV SEVERE PAIN LEVEL 7-10; Start 01/07/19 at 16:00 Morphine Sulfate (morphine) 2 mg Q3 PRN IV MOD TO SEVERE PAIN Last administered on 01/09/19at 11:19; Admin Dose 2 MG; Start 01/07/19 at 16:00 Duloxetine HCl (Cymbalta) 20 mg DAILY PO Last administered on 01/09/19at 08:08; Admin Dose 20 MG; Start 01/08/19 at 09:00 Ibuprofen (Motrin) 800 mg TID PO Last administered on 01/09/19 08:09; Admin Dose 800 MG; Start 01/07/19 at 21:00; Stop 01/09/19 at 23:00 CRYSTAL RAMIREZ NP Jan 09, 2019 11:57
[2019-01-09 14:55] VITALS: BP 90/59; PULSE 62; RESP 17
--- NOTE | 2019-01-09 15:55 | PN ---
Date/Time of Note Date/Time of Note DATE: 01/09/19 TIME: 15:52 Assessment/Plan VTE Prophylaxis Risk score (from Ns)>0 risk: 6 SCD applied (from Ns): Yes Pharmacological prophylaxis: LMWH Lines/Catheters IV Catheter Type (from Nrsg): Saline Lock Urinary Cath still in place: No Assessment/Plan Hospital Course 1. Nida gangrene: sp debridement*3. POD 5 flap reconstruction, cont wound care/ offloading Plastic surgery following, would like to evaluate wound prior to DC 2. HIV/ AIDS last CD4 count 143, on therapy. Patient does not wish to share this info with family 3. Hepatitis B 4. Substance abuse with alcohol, tobacco and drugs- Cocaine/ marijuana 5. Acute renal failure, resolved 6. SIADH/hyponatremia stable 7. Left eye blindness 8. PICC line associated infection Has been removed Prophylaxis: Lovenox DC planning: Follow-up on plastic recommendations Result Diagram: 01/09/19 0906 01/09/19 0906 Results 24hrs Laboratory Tests Test 01/09/19 09:06 White Blood Count 4.2 #L Red Blood Count 2.97 L Hemoglobin 8.8 L Hematocrit 27.3 L Mean Corpuscular Volume 91.9 Mean Corpuscular Hemoglobin 29.6 Mean Corpuscular Hemoglobin Concent 32.2 Red Cell Distribution Width 20.0 H Platelet Count 483 #H Mean Platelet Volume 9.1 Immature Granulocytes % 0.200 Neutrophils % 67.0 Lymphocytes % 24.0 Monocytes % 6.7 Eosinophils % 1.4 Basophils % 0.7 Nucleated Red Blood Cells % 0.0 Immature Granulocytes # 0.010 Neutrophils # 2.8 Lymphocytes # 1.0 Monocytes # 0.3 Eosinophils # 0.1 Basophils # 0.0 Nucleated Red Blood Cells # 0.0 Sodium Level 135 Potassium Level 4.6 Chloride Level 102 Carbon Dioxide Level 28 Anion Gap 5 Blood Urea Nitrogen 14 Creatinine 0.62 Est Glomerular Filtrat Rate mL/min > 60 Glucose Level 91 Calcium Level 8.9 Total Bilirubin 0.3 Direct Bilirubin 0.00 Indirect Bilirubin 0.3 Aspartate Amino Transf (AST/SGOT) 23 Alanine Aminotransferase (ALT/SGPT) 14 Alkaline Phosphatase 80 Total Protein 7.2 Albumin 3.2 L Globulin 4.00 H Albumin/Globulin Ratio 0.80 Prealbumin 26.1 Subjective 24 Hr Interval Summary Constitutional: no complaints Exam/Review of Systems Exam Vitals Vital Signs Date Temp Pulse Resp B/P (MAP) Pulse Ox O2 O2 Flow FiO2 Time Delivery Rate 01/09/19 98.0 62 17 90/59 (69) 96 14:55 01/09/19 Room Air 05:17 Intake and Output 01/08/19 01/08/19 01/09/19 1515:00 23:00 07:00 IntakeIntake Total 1180 ml 740 ml OutputOutput Total 1730 ml 320 ml 250 ml BalanceBalance -550 ml 420 ml -250 ml Constitutional: alert, oriented Respiratory: clear to auscultation Cardiovascular: regular rate and rhythm Gastrointestinal: soft; No distended Musculoskeletal: nl extremities to inspection Results Results 24hrs Laboratory Tests Test 01/09/19 09:06 White Blood Count 4.2 #L Red Blood Count 2.97 L Hemoglobin 8.8 L Hematocrit 27.3 L Mean Corpuscular Volume 91.9 Mean Corpuscular Hemoglobin 29.6 Mean Corpuscular Hemoglobin Concent 32.2 Red Cell Distribution Width 20.0 H Platelet Count 483 #H Mean Platelet Volume 9.1 Immature Granulocytes % 0.200 Neutrophils % 67.0 Lymphocytes % 24.0 Monocytes % 6.7 Eosinophils % 1.4 Basophils % 0.7 Nucleated Red Blood Cells % 0.0 Immature Granulocytes # 0.010 Neutrophils # 2.8 Lymphocytes # 1.0 Monocytes # 0.3 Eosinophils # 0.1 Basophils # 0.0 Nucleated Red Blood Cells # 0.0 Sodium Level 135 Potassium Level 4.6 Chloride Level 102 Carbon Dioxide Level 28 Anion Gap 5 Blood Urea Nitrogen 14 Creatinine 0.62 Est Glomerular Filtrat Rate mL/min > 60 Glucose Level 91 Calcium Level 8.9 Total Bilirubin 0.3 Direct Bilirubin 0.00 Indirect Bilirubin 0.3 Aspartate Amino Transf (AST/SGOT) 23 Alanine Aminotransferase (ALT/SGPT) 14 Alkaline Phosphatase 80 Total Protein 7.2 Albumin 3.2 L Globulin 4.00 H Albumin/Globulin Ratio 0.80 Prealbumin 26.1 Medications Medication Current Medications Acetaminophen (Tylenol Liquid) 650 mg Q6H PRN PO PAIN LEVEL 1-3 OR FEVER Last administered on 12/14/18at 01:51; Admin Dose 650 MG; Start 11/30/18 at 21:00 Emtricitabine/ Tenofovir (Truvada) 1 tab DAILY PO Last administered on 01/09 08:08; Admin Dose 1 TAB; Start 12/06/18 at 09:00 Prednisolone Acetate (Pred-Forte 1%) 1 drop DAILY LEFT EYE Last administered on 01/09/19 08:10; Admin Dose 1 DROP; Start 12/05/18 at 19:00 Atropine Sulfate (Atropine 1% Oph) 1 drop BID LEFT EYE Last administered on 01/09/19 08:10; Admin Dose 1 DROP; Start 12/07/18 at 21:00 Guaifenesin (Robitussin Liquid Cup) 100 mg Q4H PRN PO COUGH Last administered on 12/05/18 20:07; Admin Dose 100 MG; Start 12/05/18 at 19:00 Lactulose (Enulose) 20 gm DAILY PRN PO CONSTIPATION Last administered on 12/07/18 17:07; Admin Dose 20 GM; Start 12/07/18 at 16:00 Multivitamins/ Minerals (Theragran-M) 1 tab DAILY PO Last administered on 01/09/19 08:09; Admin Dose 1 TAB; Start 12/09/18 at 09:00 Ascorbic Acid (Vitamin C) 500 mg BID PO Last administered on 01/09/19 08:08; Admin Dose 500 MG; Start 12/09/18 at 09:00 Zinc Sulfate (Zinc Sulfate) 220 mg DAILY PO Last administered on 01/09/19 08:09; Admin Dose 220 MG; Start 12/09/18 at 09:00 Ibuprofen (Motrin) 400 mg Q6H PRN PO MILD PAIN(1-3) OR TEMP>38C Last administered on 01/08/19 20:51; Admin Dose 400 MG; Start 12/10/18 at 21:00 Trimethoprim/ Sulfamethoxazole (Bactrim (Ds)) 1 tab DAILY PO Last administered on 01/09/19 08:09; Admin Dose 1 TAB; Start 12/12/18 at 12:00 Alteplase, Recombinant (Cathflo (Activase)) 2 mg MAY REPEAT X1 PRN CATHETER IF CATHETER REMAINS OCCULUDED Last administered on 12/12/18 18:04; Admin Dose 2 MG; Start 12/12/18 at 14:30 Fluconazole (Diflucan) 100 mg DAILY PO Last administered on 01/09/19 08:09; Admin Dose 100 MG; Start 12/13/18 at 11:30 Zidovudine (Retrovir) 300 mg BID PO Last administered on 01/09/19 08:07; Admin Dose 300 MG; Start 12/21/18 at 21:00 Calcium Carbonate (Tums) 500 mg Q6H PRN PO DISTENSION/GAS/BLOATING Last administered on 12/24/18 06:29; Admin Dose 500 MG; Start 12/23/18 at 13:00 Lactobacillus Acidophilus/ Rhamnosus (Culturelle) 1 cap BID PO Last administered on 01/09/19 08:09; Admin Dose 1 CAP; Start 12/26/18 at 09:00 Famotidine (Pepcid) 20 mg DAILY PO Last administered on 01/09/19 08:09; Admin Dose 20 MG; Start 12/26/18 at 09:00 Zolpidem Tartrate (Ambien) 5 mg HS MAY REPEAT X 1 PRN PO INSOMNIA Last administered on 01/08/19 22:20; Admin Dose 5 MG; Start 12/31/18 at 02:30 Enoxaparin Sodium (Lovenox) 40 mg DAILY SC Last administered on 01/09/19 08:13; Admin Dose 40 MG; Start 01/06/19 at 09:00 Sodium Hypochlorite (Dakins Diluted (40)) 1 applic Q4 TP Last administered on 01/04/19 06:10; Admin Dose 1 APPLIC; Start 01/03/19 at 17:00 Acetaminophen/ Hydrocodone Bitart ([place] (10/325)) 1 tab Q3 PRN PO MODERATE PAIN LEVEL 4-6 Last administered on 01/09/19 08:08; Admin Dose 1 TAB; Start 01/05/19 at 12:00 Ondansetron HCl (Zofran Inj) 4 mg Q4 PRN IV NAUSEA AND/OR VOMITING Last administered on 01/09/19 12:54; Admin Dose 4 MG; Start 01/05/19 at 12:00 Docusate Sodium (Colace) 100 mg BID PRN PO CONSTIPATION; Start 01/06/19 at 12:00 Morphine Sulfate (morphine) 4 mg Q4 PRN IV SEVERE PAIN LEVEL 7-10; Start 01/07/19 at 16:00 Morphine Sulfate (morphine) 2 mg Q3 PRN IV MOD TO SEVERE PAIN Last administered on 8/12/19at 14:22; Admin Dose 2 MG; Start 01/07/19 at 16:00 Duloxetine HCl (Cymbalta) 20 mg DAILY PO Last administered on 01/09/19at 08:08; Admin Dose 20 MG; Start 01/08/19 at 09:00 Ibuprofen (Motrin) 800 mg TID PO Last administered on 01/09/19at 08:09; Admin Dose 800 MG; Start 01/07/19 at 21:00; Stop 01/09/19 at 23:00 LAITH MCKEON Jan 09, 2019 15:55
--- NOTE | 2019-01-09 17:28 | PN ---
Date/Time of Note Date/Time of Note DATE: 01/09/19 TIME: 16:53 Assessment/Plan VTE Prophylaxis Risk score (from Ns)>0 risk: 6 SCD applied (from [facility] [place] Yes (per protocol) SCD contraindicated: low risk/ambulating, other (patient is postop) Pharmacological prophylaxis: other Pharm contraindication: other (postop) VTE Confirmed-Overlap Tx Rcvd Pt Rcvd Overlap Therapy: Yes (Per protocol) Reason for no Overlap Therapy: Therapeutic INR VTE Overlap Tx Contraindicated: bleeding Lines/Catheters IV Catheter Type (from [facility]): Saline Lock Central line insert date: Jan 09, 2019 (N/A) Central line still needed: No Urinary Cath still in place: No Assessment/Plan Hospital Course POD#5. S/P Debridement and flap repair of four ulcers post Nida's Gangrene: Left abdomen, Scrotum, and Rt. & Lt. Lat. Thighs V.S.S., Patient is comfortable in NAD, well oriented, coherent, and cooperative. J.P. drainage is scant and serous ==> The YA drain was removed from the abdomen. Flaps are all 100% viable and healing well. Suture lines are clean. New dry sterile dressing was applied. Assessment: Unremarkable postop. recovery Plan: Needs daily or more of dressing change to cleanse with 1/40 dilutet Dakin's solution and cover with dry ABD pads. Also, needs to limit activities to daily necessities. Disposition: At least one month of care at a transitional center ( Rehab or S.N[facility] is essential before patient can go home with a home health coverage. I will be available at [phone] for any question or c oncern. Above was all reviewed with the patient and the R.N. present and questions were answered. Patient understands, agrees, and wishes to follow as above. Jesenia Petit M.D. Plastic and Reconstructive Surgeon Assessment/Plan POD#5. S/P Debridement and flap repair of four ulcers post Nida's Gangrene: Left abdomen, Scrotum, and Rt. & Lt. Lat. Thighs V.S.S., Patient is comfortable in NAD, well oriented, coherent, and cooperative. J.P. drainage is scant and serous ==> The YA drain was removed from the abdomen. Flaps are all 100% viable and healing well. Suture lines are clean. New dry sterile dressing was applied. Assessment: Unremarkable postop. recovery Plan: Needs daily or more of dressing change to cleanse with 1/40 dilutet Dakin's solution and cover with dry ABD pads. Also, needs to limit activities to daily necessities. Disposition: At least one month of care at a transitional center ( Rehab or S.N[facility] is essential before patient can go home with a home health coverage. I will be available at [phone] for any question or concern. Above was all reviewed with the patient and the R.N. present and questions were answered. Patient understands, agrees, and wishes to follow as above. Jesenia Petit M.D. Plastic and Reconstructive Surgeon Cont Hosp Indication/DC Plan: POD#5. S/P Debridement and flap repair of four ulcers post Nida's Gangr Result Diagram: 01/09/19 0906 01/09/19 0906 Results 24hrs Laboratory Tests Test 01/09/19 09:06 White Blood Count 4.2 #L Red Blood Count 2.97 L Hemoglobin 8.8 L Hematocrit 27.3 L Mean Corpuscular Volume 91.9 Mean Corpuscular Hemoglobin 29.6 Mean Corpuscular Hemoglobin Concent 32.2 Red Cell Distribution Width 20.0 H Platelet Count 483 #H Mean Platelet Volume 9.1 Immature Granulocytes % 0.200 Neutrophils % 67.0 Lymphocytes % 24.0 Monocytes % 6.7 Eosinophils % 1.4 Basophils % 0.7 Nucleated Red Blood Cells % 0.0 Immature Granulocytes # 0.010 Neutrophils # 2.8 Lymphocytes # 1.0 Monocytes # 0.3 Eosinophils # 0.1 Basophils # 0.0 Nucleated Red Blood Cells # 0.0 Sodium Level 135 Potassium Level 4.6 Chloride Level 102 Carbon Dioxide Level 28 Anion Gap 5 Blood Urea Nitrogen 14 Creatinine 0.62 Est Glomerular Filtrat Rate mL/min > 60 Glucose Level 91 Calcium Level 8.9 Total Bilirubin 0.3 Direct Bilirubin 0.00 Indirect Bilirubin 0.3 Aspartate Amino Transf (AST/SGOT) 23 Alanine Aminotransferase (ALT/SGPT) 14 Alkaline Phosphatase 80 Total Protein 7.2 Albumin 3.2 L Globulin 4.00 H Albumin/Globulin Ratio 0.80 Prealbumin 26.1 Subjective 24 Hr Interval Summary Additional Comments POD#5. S/P Debridement and flap repair of four ulcers post Nida's Gangrene: Left abdomen, Scrotum, and Rt. & Lt. Lat. Thighs V.S.S., Patient is comfortable in NAD, well oriented, coherent, and cooperative. J.P. drainage is scant and serous ==> The YA drain was removed from the abdomen. Flaps are all 100% viable and healing well. Suture lines are clean. New dry sterile dressing was applied. Assessment: Unremarkable postop. recovery Plan: Needs daily or more of dressing change to cleanse with 1/40 dilutet Dakin's solution and cover with dry ABD pads. Also, needs to limit activities to daily necessities. Disposition: At least one month of care at a transitional center ( Rehab or S.N[facility] is essential before patient can go home with a home health coverage. I will be available at [phone] for any question or concern. Above was all reviewed with the patient and the R.N. present and questions were answered. Patient understands, agrees, and wishes to follow as above. Jesenia Petit M.D. Plastic and Reconstructive Surgeon Exam/Review of Systems Exam Vitals Vital Signs Date Temp Pulse Resp B/P (MAP) Pulse Ox O2 O2 Flow FiO2 Time Delivery Rate 01/09/19 98.0 62 17 90/59 (69) 96 14:55 01/09/19 Room Air 05:17 Intake and Output 01/08/19 01/08/19 01/09/19 1515:00 23:00 07:00 IntakeIntake Total 1180 ml 740 ml OutputOutput Total 1730 ml 320 ml 250 ml BalanceBalance -550 ml 420 ml -250 ml Exam All Flags are 100% viable and healing Results Results 24hrs Laboratory Tests Test 01/09/19 09:06 White Blood Count 4.2 #L Red Blood Count 2.97 L Hemoglobin 8.8 L Hematocrit 27.3 L Mean Corpuscular Volume 91.9 Mean Corpuscular Hemoglobin 29.6 Mean Corpuscular Hemoglobin Concent 32.2 Red Cell Distribution Width 20.0 H Platelet Count 483 #H Mean Platelet Volume 9.1 Immature Granulocytes % 0.200 Neutrophils % 67.0 Lymphocytes % 24.0 Monocytes % 6.7 Eosinophils % 1.4 Basophils % 0.7 Nucleated Red Blood Cells % 0.0 Immature Granulocytes # 0.010 Neutrophils # 2.8 Lymphocytes # 1.0 Monocytes # 0.3 Eosinophils # 0.1 Basophils # 0.0 Nucleated Red Blood Cells # 0.0 Sodium Level 135 Potassium Level 4.6 Chloride Level 102 Carbon Dioxide Level 28 Anion Gap 5 Blood Urea Nitrogen 14 Creatinine 0.62 Est Glomerular Filtrat Rate mL/min > 60 Glucose Level 91 Calcium Level 8.9 Total Bilirubin 0.3 Direct Bilirubin 0.00 Indirect Bilirubin 0.3 Aspartate Amino Transf (AST/SGOT) 23 Alanine Aminotransferase (ALT/SGPT) 14 Alkaline Phosphatase 80 Total Protein 7.2 Albumin 3.2 L Globulin 4.00 H Albumin/Globulin Ratio 0.80 Prealbumin 26.1 Medications Medication Current Medications Acetaminophen (Tylenol Liquid) 650 mg Q6H PRN PO PAIN LEVEL 1-3 OR FEVER Last administered on 12/14/18 01:51; Admin Dose 650 MG; Start 11/30/18 at 21:00 Emtricitabine/ Tenofovir (Truvada) 1 tab DAILY PO Last administered on 01/09/19 08:08; Admin Dose 1 TAB; Start 12/06/18 at 09:00 Prednisolone Acetate (Pred-Forte 1%) 1 drop DAILY LEFT EYE Last administered on 01/09/19 08:10; Admin Dose 1 DROP; Start 12/05/18 at 19:00 Atropine Sulfate (Atropine 1% Oph) 1 drop BID LEFT EYE Last administered on 01/09/19 08:10; Admin Dose 1 DROP; Start 12/07/18 at 21:00 Guaifenesin (Robitussin Liquid Cup) 100 mg Q4H PRN PO COUGH Last administered on 12/05/18 20:07; Admin Dose 100 MG; Start 12/05/18 at 19:00 Lactulose (Enulose) 20 gm DAILY PRN PO CONSTIPATION Last administered on 12/07/18 17:07; Admin Dose 20 GM; Start 12/07/18 at 16:00 Multivitamins/ Minerals (Theragran-M) 1 tab DAILY PO Last administered on 01/09/19 08:09; Admin Dose 1 TAB; Start 12/09/18 at 09:00 Ascorbic Acid (Vitamin C) 500 mg BID PO Last administered on 01/09/19 08:08; Admin Dose 500 MG; Start 12/09/18 at 09:00 Zinc Sulfate (Zinc Sulfate) 220 mg DAILY PO Last administered on 01/09/19 08:09; Admin Dose 220 MG; Start 12/09/18 at 09:00 Ibuprofen (Motrin) 400 mg Q6H PRN PO MILD PAIN(1-3) OR TEMP>38C Last administered on 01/08/19 20:51; Admin Dose 400 MG; Start 12/10/18 at 21:00 Trimethoprim/ Sulfamethoxazole (Bactrim (Ds)) 1 tab DAILY PO Last administered on 01/09/19 08:09; Admin Dose 1 TAB; Start 12/12/18 at 12:00 Alteplase, Recombinant (Cathflo (Activase)) 2 mg MAY REPEAT X1 PRN CATHETER IF CATHETER REMAINS OCCULUDED Last administered on 12/12/18 18:04; Admin Dose 2 MG; Start 12/12/18 at 14:30 Fluconazole (Diflucan) 100 mg DAILY PO Last administered on 01/09/19 08:09; Admin Dose 100 MG; Start 12/13/18 at 11:30 Zidovudine (Retrovir) 300 mg BID PO Last administered on 01/09/19 08:07; Admin Dose 300 MG; Start 12/21/18 at 21:00 Calcium Carbonate (Tums) 500 mg Q6H PRN PO DISTENSION/GAS/BLOATING Last administered on 12/24/18 06:29; Admin Dose 500 MG; Start 12/23/18 at 13:00 Lactobacillus Acidophilus/ Rhamnosus (Culturelle) 1 cap BID PO Last admini stered on 01/09/19 08:09; Admin Dose 1 CAP; Start 12/26/18 at 09:00 Famotidine (Pepcid) 20 mg DAILY PO Last administered on 01/09/19 08:09; Admin Dose 20 MG; Start 12/26/18 at 09:00 Zolpidem Tartrate (Ambien) 5 mg HS MAY REPEAT X 1 PRN PO INSOMNIA Last administered on 01/08/19 22:20; Admin Dose 5 MG; Start 12/31/18 at 02:30 Enoxaparin Sodium (Lovenox) 40 mg DAILY SC Last administered on 01/09/19 08:13; Admin Dose 40 MG; Start 01/06/19 at 09:00 Sodium Hypochlorite (Dakins Diluted ()) 1 applic Q4 TP Last administered on 01/04/19 06:10; Admin Dose 1 APPLIC; Start 01/03/19 at 17:00 Acetaminophen/ Hydrocodone Bitart ([place] ()) 1 tab Q3 PRN PO MODERATE PAIN LEVEL 4-6 Last administered on 01/09/19 08:08; Admin Dose 1 TAB; Start 01/05/19 at 12:00 Ondansetron HCl (Zofran Inj) 4 mg Q4 PRN IV NAUSEA AND/OR VOMITING Last administered on 01/09/19 12:54; Admin Dose 4 MG; Start 01/05/19 at 12:00 Docusate Sodium (Colace) 100 mg BID PRN PO CONSTIPATION; Start 01/06/19 at 12:00 Morphine Sulfate (morphine) 4 mg Q4 PRN IV SEVERE PAIN LEVEL 7-10; Start 01/07/19 at 16:00 Morphine Sulfate (morphine) 2 mg Q3 PRN IV MOD TO SEVERE PAIN Last administered on 01/09/19 14:22; Admin Dose 2 MG; Start 01/07/19 at 16:00 Duloxetine HCl (Cymbalta) 20 mg DAILY PO Last administered on 01/09/19 08:08; Admin Dose 20 MG; Start 01/08/19 at 09:00 Ibuprofen (Motrin) 800 mg TID PO Last administered on 01/09/19 08:09; Admin Dose 800 MG; Start 01/07/19 at 21:00; Stop 01/09/19 at 23:00 TARAS PETIT MD Jan 09, 2019 17:07
[2019-01-09 19:50] VITALS: BP 100/59; PULSE 79; RESP 16
[2019-01-10] MEDS: morphine 2 MG INJ IV PRN ×6 (00:04→22:31)
[2019-01-10] MEDS: ZOLPIDEM 5 MG TAB PO PRN (00:37)
[2019-01-10 01:58] VITALS: BP 91/56; PULSE 73; RESP 18
[2019-01-10] MEDS: HYDROCODONE/APAP (10/325) TAB PO PRN ×5 (05:25→20:22)
[2019-01-10 08:32] VITALS: BP 88/51; PULSE 64; RESP 16
[2019-01-10] MEDS: ATROPINE 1% 5 ML OPH LEFT EYE SCH ×2 (08:36→20:25)
[2019-01-10] MEDS: PREDNISOLONE ACET 1% 5 ML OPH LEFT EYE SCH (08:38)
[2019-01-10] MEDS: LACTOBACILLUS RHAMNOSUS CAP PO SCH ×2 (10:08→20:22)
[2019-01-10] MEDS: MULTIVITAMINS/MINERALS TAB PO SCH (10:08)
[2019-01-10] MEDS: ZIDOVUDINE 300 MG TAB PO SCH ×2 (10:08→20:22)
[2019-01-10] MEDS: DULOXETINE 20 MG CAP DR PO SCH (10:08)
[2019-01-10] MEDS: EMTRICITABINE/TENOFOVIR TAB PO SCH (10:09)
[2019-01-10] MEDS: ASCORBIC ACID 500 MG TAB PO SCH ×2 (10:09→20:22)
[2019-01-10] MEDS: FLUCONAZOLE 100 MG TAB PO SCH (10:09)
[2019-01-10] MEDS: FAMOTIDINE 20 MG TAB PO SCH (10:09)
[2019-01-10] MEDS: TRIMETHOPRIM/SULFAMETHOX (DS) TAB PO SCH (10:09)
[2019-01-10] MEDS: ZINC SULFATE 220 MG CAP PO SCH (10:09)
[2019-01-10] MEDS: DAKINS 0.0125%(1/40) 473 ML SOLUTION TP SCH (10:10)
[2019-01-10] MEDS: ENOXAPARIN 40 MG/0.4 ML SYG SC SCH (10:12)
[2019-01-10 10:14] VITALS: BP 96/64; PULSE 81
--- NOTE | 2019-01-10 11:18 | CONS ---
Assessment/Plan Assessment/Plan Hospital Course (Demo Recall) No changes, looks comfortable, no fevers Microbiology: Wound culture grew MRSA, repeat cx + Kleb, E coli, MRSA====> treated Antimicrobials: Truvada, Retrovir, Diflucan, Bactrim Physical examination: Well-developed well-nourished middle-aged man who is alert in no distress. Head atraumatic normocephalic sclera nonicteric neck is supple chest rise symmetrical breath sounds clear heart: S1-S2 abdomen soft bowel sounds present extremities without cyanosis. Skin: Patient has dressing over his left side of the abdomen and bilateral wound vacs to hips Assessment: 1. S/p sepsis 2. Fornier's gangrene and necrotizing fasciitis, status post multiple recurrent debridement, s/p skin grafts/flap reconstruction 01/04/19 3. AIDS===> CD4 12/13 143 4. Status post renal failure Plan: Remains stable, continue BAEZ and proph Rx, plastic surgery rec-s noted Consultation Date/Type/Reason Admit Date/Time Nov 30, 2018 at 20:47 Initial Consult Date 12/02/18 Type of Consult id Requesting Provider: TYE PETIT Date/Time of Note DATE: 01/10/19 TIME: 11:16 Exam/Review of Systems Exam Vitals Vital Signs Date Temp Pulse Resp B/P (MAP) Pulse Ox O2 O2 Flow FiO2 Time Delivery Rate 01/10/19 81 96/64 (75) 10:14 01/10/19 97.9 16 94 08:32 01/09/19 Room Air 05:17 Intake and Output 01/09/19 01/09/19 01/10/19 1515:00 23:00 07:00 IntakeIntake Total 1220 ml 520 ml OutputOutput Total 850 ml 520 ml BalanceBalance 370 ml 0 ml Results Result Diagram: 01/09/1990501/09/19905 Medications Medication Current Medications Acetaminophen (Tylenol Liquid) 650 mg Q6H PRN PO PAIN LEVEL 1-3 OR FEVER Last administered on 12/14/18at 01:51; Admin Dose 650 MG; Start 11/30/18 at 21:00 Emtricitabine/ Tenofovir (Truvada) 1 tab DAILY PO Last administered on 01/10/19at 10:09; Admin Dose 1 TAB; Start 12/06/18 at 09:00 Prednisolone Acetate (Pred-Forte 1%) 1 drop DAILY LEFT EYE Last administered on 01/10/19 08:38; Admin Dose 1 DROP; Start 12/05/18 at 19:00 Atropine Sulfate (Atropine 1% Oph) 1 drop BID LEFT EYE Last administered on 01/10/19 08:36; Admin Dose 1 DROP; Start 12/07/18 at 21:00 Guaifenesin (Robitussin Liquid Cup) 100 mg Q4H PRN PO COUGH Last administered on 12/05/18 20:07; Admin Dose 100 MG; Start 12/05/18 at 19:00 Lactulose (Enulose) 20 gm DAILY PRN PO CONSTIPATION Last administered on 12/07/18 17:07; Admin Dose 20 GM; Start 12/07/18 at 16:00 Multivitamins/ Minerals (Theragran-M) 1 tab DAILY PO Last administered on 01/10/19 10:08; Admin Dose 1 TAB; Start 12/09/18 at 09:00 Ascorbic Acid (Vitamin C) 500 mg BID PO Last administered on 01/10/19 10:09; Admin Dose 500 MG; Start 12/09/18 at 09:00 Zinc Sulfate (Zinc Sulfate) 220 mg DAILY PO Last administered on 01/10/19 10:09; Admin Dose 220 MG; Start 12/09/18 at 09:00 Ibuprofen (Motrin) 400 mg Q6H PRN PO MILD PAIN(1-3) OR TEMP>38C Last administered on 01/08/19 20:51; Admin Dose 400 MG; Start 12/10/18 at 21:00 Trimethoprim/ Sulfamethoxazole (Bactrim (Ds)) 1 tab DAILY PO Last administered on 01/10/19 10:09; Admin Dose 1 TAB; Start 12/12/18 at 12:00 Alteplase, Recombinant (Cathflo (Activase)) 2 mg MAY REPEAT X1 PRN CATHETER IF CATHETER REMAINS OCCULUDED Last administered on 12/12/18 18:04; Admin Dose 2 MG; Start 12/12/18 at 14:30 Fluconazole (Diflucan) 100 mg DAILY PO Last administered on 01/10/19 10:09; Admin Dose 100 MG; Start 12/13/18 at 11:30 Zidovudine (Retrovir) 300 mg BID PO Last administered on 01/10/19 10:08; Admin Dose 300 MG; Start 12/21/18 at 21:00 Calcium Carbonate (Tums) 500 mg Q6H PRN PO DISTENSION/GAS/BLOATING Last administered on 12/24/18 06:29; Admin Dose 500 MG; Start 12/23/18 at 13:00 Lactobacillus Acidophilus/ Rhamnosus (Culturelle) 1 cap BID PO Last administered on 01/10/19 10:08; Admin Dose 1 CAP; Start 12/26/18 at 09:00 Famotidine (Pepcid) 20 mg DAILY PO Last administered on 01/10/19 10:09; Admin Dose 20 MG; Start 12/26/18 at 09:00 Zolpidem Tartrate (Ambien) 5 mg HS MAY REPEAT X 1 PRN PO INSOMNIA Last administered on 01/10/19 00:37; Admin Dose 5 MG; Start 12/31/18 at 02:30 Enoxaparin Sodium (Lovenox) 40 mg DAILY SC Last administered on 01/10/19 10:12; Admin Dose 40 MG; Start 01/06/19 at 09:00 Acetaminophen/ Hydrocodone Bitart ([place] (10/325)) 1 tab Q3 PRN PO MODERATE PAIN LEVEL 4-6 Last administered on 01/10/19 08:35; Admin Dose 1 TAB; Start 01/05/19 at 12:00 Ondansetron HCl (Zofran Inj) 4 mg Q4 PRN IV NAUSEA AND/OR VOMITING Last administered on 01/09/19 12:54; Admin Dose 4 MG; Start 01/05/19 at 12:00 Docusate Sodium (Colace) 100 mg BID PRN PO CONSTIPATION; Start 01/06/19 at 12:00 Morphine Sulfate (morphine) 4 mg Q4 PRN IV SEVERE PAIN LEVEL 7-10; Start 01/07/19 at 16:00 Morphine Sulfate (morphine) 2 mg Q3 PRN IV MOD TO SEVERE PAIN Last administered on 01/10/19 10:16; Admin Dose 2 MG; Start 01/07/19 at 16:00 Duloxetine HCl (Cymbalta) 20 mg DAILY PO Last administered on 01/10/19 10:08; Admin Dose 20 MG; Start 01/08/19 at 09:00 Sodium Hypochlorite (Dakins Diluted ()) 1 applic DAILY TP Last administered on 01/10/19at 10:10; Admin Dose 1 APPLIC; Start 01/10/19 at 09:00 Miscellaneous Information 1 ea NOTE XX ; Start 01/09/19 at 21:30 CRYSTAL RAMIREZ NP Jan 10, 2019 11:18
--- NOTE | 2019-01-10 14:32 | PN ---
Date/Time of Note Date/Time of Note DATE: 01/10/19 TIME: 14:32 Assessment/Plan VTE Prophylaxis Risk score (from Ns)>0 risk: 6 SCD applied (from Ns): Yes Pharmacological prophylaxis: LMWH Lines/Catheters IV Catheter Type (from Nrs): Saline Lock Urinary Cath still in place: No Assessment/Plan Hospital Course 1. Nida gangrene: sp debridement*3. POD 5 flap reconstruction, cont wound care/ offloading Plastic surgery following, recommending to continue observation in hospital or [facility] 2. HIV/ AIDS last CD4 count 143, on therapy. Patient does not wish to share this info with family 3. Hepatitis B 4. Substance abuse with alcohol, tobacco and drugs- Cocaine/ marijuana 5. Acute renal failure, resolved 6. SIADH/hyponatremia stable 7. Left eye blindness 8. PICC line associated infection Has been removed Prophylaxis: Lovenox DC planning: Placement pending Result Diagram: 01/09/1990501/09/19 0906 Subjective 24 Hr Interval Summary Constitutional: no complaints Exam/Review of Systems Exam Vitals Vital Signs Date Temp Pulse Resp B/P (MAP) Pulse Ox O2 O2 Flow FiO2 Time Delivery Rate 01/10/19 81 96/64 (75) 10:14 01/10/19 97.9 16 94 08:32 01/09/19 Room Air 05:17 Intake and Output 01/09/19 01/09/19 01/10/19 1515:00 23:00 07:00 IntakeIntake Total 1220 ml 520 ml OutputOutput Total 850 ml 520 ml BalanceBalance 370 ml 0 ml Constitutional: alert, oriented Respiratory: clear to auscultation Cardiovascular: regular rate and rhythm Gastrointestinal: soft Musculoskeletal: nl extremities to inspection Medications Medication Current Medications Acetaminophen (Tylenol Liquid) 650 mg Q6H PRN PO PAIN LEVEL 1-3 OR FEVER Last administered on 12/14/18at 01:51; Admin Dose 650 MG; Start 11/30/18 at 21:00 Emtricitabine/ Tenofovir (Truvada) 1 tab DAILY PO Last administered on 01/10/19at 10:09; Admin Dose 1 TAB; Start 12/06/18 at 09:00 Prednisolone Acetate (Pred-Forte 1%) 1 drop DAILY LEFT EYE Last administered on 01/10/19at 08:38; Admin Dose 1 DROP; Start 12/05/18 at 19:00 Atropine Sulfate (Atropine 1% Oph) 1 drop BID LEFT EYE Last administered on 01/10/19 08:36; Admin Dose 1 DROP; Start 12/07/18 at 21:00 Guaifenesin (Robitussin Liquid Cup) 100 mg Q4H PRN PO COUGH Last administered on 12/05/18 20:07; Admin Dose 100 MG; Start 12/05/18 at 19:00 Lactulose (Enulose) 20 gm DAILY PRN PO CONSTIPATION Last administered on 12/07/18 17:07; Admin Dose 20 GM; Start 12/07/18 at 16:00 Multivitamins/ Minerals (Theragran-M) 1 tab DAILY PO Last administered on 01/10/19 10:08; Admin Dose 1 TAB; Start 12/09/18 at 09:00 Ascorbic Acid (Vitamin C) 500 mg BID PO Last administered on 01/10/19 10:09; Admin Dose 500 MG; Start 12/09/18 at 09:00 Zinc Sulfate (Zinc Sulfate) 220 mg DAILY PO Last administered on 01/10/19 10:09; Admin Dose 220 MG; Start 12/09/18 at 09:00 Ibuprofen (Motrin) 400 mg Q6H PRN PO MILD PAIN(1-3) OR TEMP>38C Last administered on 01/08/19 20:51; Admin Dose 400 MG; Start 12/10/18 at 21:00 Trimethoprim/ Sulfamethoxazole (Bactrim (Ds)) 1 tab DAILY PO Last administered on 01/10/19 10:09; Admin Dose 1 TAB; Start 12/12/18 at 12:00 Alteplase, Recombinant (Cathflo (Activase)) 2 mg MAY REPEAT X1 PRN CATHETER IF CATHETER REMAINS OCCULUDED Last administered on 12/12/18 18:04; Admin Dose 2 MG; Start 12/12/18 at 14:30 Fluconazole (Diflucan) 100 mg DAILY PO Last administered on 01/10/19 10:09; Admin Dose 100 MG; Start 12/13/18 at 11:30 Zidovudine (Retrovir) 300 mg BID PO Last administered on 01/10/19 10:08; Admin Dose 300 MG; Start 12/21/18 at 21:00 Calcium Carbonate (Tums) 500 mg Q6H PRN PO DISTENSION/GAS/BLOATING Last administered on 12/24/18 06:29; Admin Dose 500 MG; Start 12/23/18 at 13:00 Lactobacillus Acidophilus/ Rhamnosus (Culturelle) 1 cap BID PO Last administered on 01/10/19 10:08; Admin Dose 1 CAP; Start 12/26/18 at 09:00 Famotidine (Pepcid) 20 mg DAILY PO Last administered on 01/10/19 10:09; Admin Dose 20 MG; Start 12/26/18 at 09:00 Zolpidem Tartrate (Ambien) 5 mg HS MAY REPEAT X 1 PRN PO INSOMNIA Last administered on 01/10/19 00:37; Admin Dose 5 MG; Start 12/31/18 at 02:30 Enoxaparin Sodium (Lovenox) 40 mg DAILY SC Last administered on 01/10/19 10: 12; Admin Dose 40 MG; Start 01/06/19 at 09:00 Acetaminophen/ Hydrocodone Bitart ([place] (10325)) 1 tab Q3 PRN PO MODERATE PAIN LEVEL 4-6 Last administered on 01/10/19 12:21; Admin Dose 1 TAB; Start 01/05/19 at 12:00 Ondansetron HCl (Zofran Inj) 4 mg Q4 PRN IV NAUSEA AND/OR VOMITING Last administered on 01/09/19 12:54; Admin Dose 4 MG; Start 01/05/19 at 12:00 Docusate Sodium (Colace) 100 mg BID PRN PO CONSTIPATION; Start 01/06/19 at 12:00 Morphine Sulfate (morphine) 4 mg Q4 PRN IV SEVERE PAIN LEVEL 7-10; Start 01/07/19 at 16:00 Morphine Sulfate (morphine) 2 mg Q3 PRN IV MOD TO SEVERE PAIN Last administered on 01/10/19 14:05; Admin Dose 2 MG; Start 01/07/19 at 16:00 Duloxetine HCl (Cymbalta) 20 mg DAILY PO Last administered on 01/10/19 10:08; Admin Dose 20 MG; Start 01/08/19 at 09:00 Sodium Hypochlorite (Dakins Diluted (40)) 1 applic DAILY TP Last administered on 01/10/19 10:10; Admin Dose 1 APPLIC; Start 01/10/19 at 09:00 Miscellaneous Information 1 ea NOTE XX ; Start 01/09/19 at 21:30 LAITH MCKEON Jan 10, 2019 14:32
[2019-01-10 14:59] VITALS: BP 99/58; PULSE 72; RESP 16
[2019-01-10 19:56] VITALS: BP 117/70; PULSE 87; RESP 18
[2019-01-11] MEDS: ZOLPIDEM 5 MG TAB PO PRN (00:23)
[2019-01-11 01:27] VITALS: BP 96/71; PULSE 70; RESP 18
[2019-01-11] MEDS: morphine 2 MG INJ IV PRN ×4 (05:43→21:23)
[2019-01-11 08:45] VITALS: BP 95/63; PULSE 74; RESP 16
[2019-01-11] MEDS: FLUCONAZOLE 100 MG TAB PO SCH (10:06)
[2019-01-11] MEDS: MULTIVITAMINS/MINERALS TAB PO SCH (10:06)
[2019-01-11] MEDS: LACTOBACILLUS RHAMNOSUS CAP PO SCH ×2 (10:06→20:21)
[2019-01-11] MEDS: TRIMETHOPRIM/SULFAMETHOX (DS) TAB PO SCH (10:06)
[2019-01-11] MEDS: ZIDOVUDINE 300 MG TAB PO SCH ×2 (10:06→20:21)
[2019-01-11] MEDS: ZINC SULFATE 220 MG CAP PO SCH (10:06)
[2019-01-11] MEDS: EMTRICITABINE/TENOFOVIR TAB PO SCH (10:06)
[2019-01-11] MEDS: DULOXETINE 20 MG CAP DR PO SCH (10:06)
[2019-01-11] MEDS: FAMOTIDINE 20 MG TAB PO SCH (10:07)
[2019-01-11] MEDS: ATROPINE 1% 5 ML OPH LEFT EYE SCH ×2 (10:07→20:22)
[2019-01-11] MEDS: ASCORBIC ACID 500 MG TAB PO SCH ×2 (10:07→20:21)
[2019-01-11] MEDS: PREDNISOLONE ACET 1% 5 ML OPH LEFT EYE SCH (10:07)
[2019-01-11] MEDS: DAKINS 0.0125%(1/40) 473 ML SOLUTION TP SCH (10:08)
[2019-01-11] MEDS: ENOXAPARIN 40 MG/0.4 ML SYG SC SCH (10:16)
[2019-01-11] MEDS: HYDROCODONE/APAP (10/325) TAB PO PRN ×3 (11:10→20:21)
[2019-01-11] MEDS: morphine 4 MG/ML VIAL IV PRN (13:44)
--- NOTE | 2019-01-11 14:02 | PN ---
Date/Time of Note Date/Time of Note DATE: 01/11/19 TIME: 14:01 Assessment/Plan VTE Prophylaxis Risk score (from Nsg)>0 risk: 3 Pharmacological prophylaxis: LMWH Lines/Catheters IV Catheter Type (from Nrsg): Saline Lock Urinary Cath still in place: No Assessment/Plan Hospital Course 1. Nida gangrene: sp debridement*3. POD 5 flap reconstruction, cont wound care/ offloading Plastic surgery following, recommending to continue observation in hospital or snf 2. HIV/ AIDS last CD4 count 143, on therapy. Patient does not wish to share this info with family 3. Hepatitis B 4. Substance abuse with alcohol, tobacco and drugs- Cocaine/ marijuana 5. Acute renal failure, resolved 6. SIADH/hyponatremia stable 7. Left eye blindness 8. PICC line associated infection Has been removed Prophylaxis: Lovenox DC planning: Placement pending Result Diagram: 01/09/1990501/09/19905 Subjective 24 Hr Interval Summary Constitutional: no complaints Exam/Review of Systems Exam Vitals Vital Signs Date Temp Pulse Resp B/P (MAP) Pulse Ox O2 O2 Flow FiO2 Time Delivery Rate 01/11/19 98.2 74 16 95/63 (74) 95 Room Air 08:45 Intake and Output 01/10/19 01/10/19 01/11/19 1515:00 23:00 07:00 IntakeIntake Total 1000 ml 560 ml 350 ml OutputOutput Total 700 ml 350 ml 400 ml BalanceBalance 300 ml 210 ml -50 ml Constitutional: alert Respiratory: clear to auscultation Cardiovascular: regular rate and rhythm Gastrointestinal: soft Musculoskeletal: nl extremities to inspection Medications Medication Current Medications Acetaminophen (Tylenol Liquid) 650 mg Q6H PRN PO PAIN LEVEL 1-3 OR FEVER Last administered on 12/14/18at 01:51; Admin Dose 650 MG; Start 11/30/18 at 21:00 Emtricitabine/ Tenofovir (Truvada) 1 tab DAILY PO Last administered on 01/11/19at 10:06; Admin Dose 1 TAB; Start 12/06/18 at 09:00 Prednisolone Acetate (Pred-Forte 1%) 1 drop DAILY LEFT EYE Last administered on 01/11/19at 10:07; Admin Dose 1 DROP; Start 12/05/18 at 19:00 Atropine Sulfate (Atropine 1% Oph) 1 drop BID LEFT EYE Last administered on 01/11/19 10:07; Admin Dose 1 DROP; Start 12/07/18 at 21:00 Guaifenesin (Robitussin Liquid Cup) 100 mg Q4H PRN PO COUGH Last administered on 12/05/18 20:07; Admin Dose 100 MG; Start 12/05/18 at 19:00 Lactulose (Enulose) 20 gm DAILY PRN PO CONSTIPATION Last administered on 12/07/18 17:07; Admin Dose 20 GM; Start 12/07/18 at 16:00 Multivitamins/ Minerals (Theragran-M) 1 tab DAILY PO Last administered on 01/11/19 10:06; Admin Dose 1 TAB; Start 12/09/18 at 09:00 Ascorbic Acid (Vitamin C) 500 mg BID PO Last administered on 01/11/19 10:07; A dmin Dose 500 MG; Start 12/09/18 at 09:00 Zinc Sulfate (Zinc Sulfate) 220 mg DAILY PO Last administered on 01/11/19 10:06; Admin Dose 220 MG; Start 12/09/18 at 09:00 Ibuprofen (Motrin) 400 mg Q6H PRN PO MILD PAIN(1-3) OR TEMP>38C Last administered on 01/08/19 20:51; Admin Dose 400 MG; Start 12/10/18 at 21:00 Trimethoprim/ Sulfamethoxazole (Bactrim (Ds)) 1 tab DAILY PO Last administered on 01/11/19 10:06; Admin Dose 1 TAB; Start 12/12/18 at 12:00 Alteplase, Recombinant (Cathflo (Activase)) 2 mg MAY REPEAT X1 PRN CATHETER IF CATHETER REMAINS OCCULUDED Last administered on 12/12/18 18:04; Admin Dose 2 MG; Start 12/12/18 at 14:30 Fluconazole (Diflucan) 100 mg DAILY PO Last administered on 01/11/19 10:06; Admin Dose 100 MG; Start 12/13/18 at 11:30 Zidovudine (Retrovir) 300 mg BID PO Last administered on 01/11/19 10:06; Admin Dose 300 MG; Start 12/21/18 at 21:00 Calcium Carbonate (Tums) 500 mg Q6H PRN PO DISTENSION/GAS/BLOATING Last administered on 12/24/18 06:29; Admin Dose 500 MG; Start 12/23/18 at 13:00 Lactobacillus Acidophilus/ Rhamnosus (Culturelle) 1 cap BID PO Last ad ministered on 01/11/19 10:06; Admin Dose 1 CAP; Start 12/26/18 at 09:00 Famotidine (Pepcid) 20 mg DAILY PO Last administered on 01/11/19 10:07; Admin Dose 20 MG; Start 12/26/18 at 09:00 Zolpidem Tartrate (Ambien) 5 mg HS MAY REPEAT X 1 PRN PO INSOMNIA Last administered on 01/11/19 00:23; Admin Dose 5 MG; Start 12/31/18 at 02:30 Enoxaparin Sodium (Lovenox) 40 mg DAILY SC Last administered on 01/11/19 10:16; Admin Dose 40 MG; Start 01/06/19 at 09:00 Acetaminophen/ Hydrocodone Bitart ([place] (10/325)) 1 tab Q3 PRN PO MODERATE PAIN LEVEL 4-6 Last administered on 01/11/19 11:10; Admin Dose 1 TAB; Start 01/05/19 at 12:00 Ondansetron HCl (Zofran Inj) 4 mg Q4 PRN IV NAUSEA AND/OR VOMITING Last administered on 01/09/19 12:54; Admin Dose 4 MG; Start 01/05/19 at 12:00 Docusate Sodium (Colace) 100 mg BID PRN PO CONSTIPATION; Start 01/06/19 at 12:00 Morphine Sulfate (morphine) 4 mg Q4 PRN IV SEVERE PAIN LEVEL 7-10 Last administered on 01/11/19 13:44; Admin Dose 4 MG; Start 01/07/19 at 16:00 Morphine Sulfate (morphine) 2 mg Q3 PRN IV MOD TO SEVERE PAIN Last administered on 01/11/19 10:05; Admin Dose 2 MG; Start 01/07/19 at 16:00 Duloxetine HCl (Cymbalta) 20 mg DAILY PO Last administered on 01/11/19 10:06; Admin Dose 20 MG; Start 01/08/19 at 09:00 Sodium Hypochlorite (Dakins Diluted (40)) 1 applic DAILY TP Last administered on 01/11/19 10:08; Admin Dose 1 APPLIC; Start 01/10/19 at 09:00 Miscellaneous Information 1 ea NOTE XX ; Start 01/09/19 at 21:30 LAITH MCKEON Jan 11, 2019 14:01
[2019-01-11 14:08] VITALS: BP 102/66; PULSE 83; RESP 16
--- NOTE | 2019-01-11 14:58 | CONS ---
Assessment/Plan Assessment/Plan Hospital Course (Demo Recall) No changes Microbiology: Wound culture grew MRSA, repeat cx + Kleb, E coli, MRSA====> treated Antimicrobials: Truvada, Retrovir, Diflucan, Bactrim Physical examination: Well-developed well-nourished middle-aged man who is alert in no distress. Head atraumatic normocephalic sclera nonicteric neck is supple chest rise symmetrical breath sounds clear heart: S1-S2 abdomen soft bowel sounds present extremities without cyanosis. Skin: Patient has dressing over his left side of the abdomen and bilateral wound vacs to hips Assessment: 1. S/p sepsis 2. Fornier's gangrene and necrotizing fasciitis, status post multiple recurrent debridement, s/p skin grafts/flap reconstruction 01/04/19 3. AIDS===> CD4 12/13 143 4. Status post renal failure Plan: Remains stable, continue BAEZ and proph Rx, wound care per plastic surgery rec-s Consultation Date/Type/Reason Admit Date/Time Nov 30, 2018 at 20:47 Initial Consult Date 12/02/18 Type of Consult id Requesting Provider: TYE PETIT Date/Time of Note DATE: 01/11/19 TIME: 14:57 Exam/Review of Systems Exam Vitals Vital Signs Date Temp Pulse Resp B/P (MAP) Pulse Ox O2 O2 Flow FiO2 Time Delivery Rate 01/11/19 97.8 83 16 102/66 94 Room Air 14:08 (78) Intake and Output 01/10/19 01/10/19 01/11/19 1515:00 23:00 07:00 IntakeIntake Total 1000 ml 560 ml 350 ml OutputOutput Total 700 ml 350 ml 400 ml BalanceBalance 300 ml 210 ml -50 ml Results Result Diagram: 01/09/1990501/09/19905 Medications Medication Current Medications Acetaminophen (Tylenol Liquid) 650 mg Q6H PRN PO PAIN LEVEL 1-3 OR FEVER Last administered on 12/14/18at 01:51; Admin Dose 650 MG; Start 11/30/18 at 21:00 Emtricitabine/ Tenofovir (Truvada) 1 tab DAILY PO Last administered on 01/11/19at 10:06; Admin Dose 1 TAB; Start 12/06/18 at 09:00 Prednisolone Acetate (Pred-Forte 1%) 1 drop DAILY LEFT EYE Last administered on 01/11/19 10:07; Admin Dose 1 DROP; Start 12/05/18 at 19:00 Atropine Sulfate (Atropine 1% Oph) 1 drop BID LEFT EYE Last administered on 01/11/19 10:07; Admin Dose 1 DROP; Start 12/07/18 at 21:00 Guaifenesin (Robitussin Liquid Cup) 100 mg Q4H PRN PO COUGH Last administered on 12/05/18 20:07; Admin Dose 100 MG; Start 12/05/18 at 19:00 Lactulose (Enulose) 20 gm DAILY PRN PO CONSTIPATION Last administered on 12/07/18 17:07; Admin Dose 20 GM; Start 12/07/18 at 16:00 Multivitamins/ Minerals (Theragran-M) 1 tab DAILY PO Last administered on 01/11/19 10:06; Admin Dose 1 TAB; Start 12/09/18 at 09:00 Ascorbic Acid (Vitamin C) 500 mg BID PO Last administered on 01/11/19 10:07; Admin Dose 500 MG; Start 12/09/18 at 09:00 Zinc Sulfate (Zinc Sulfate) 220 mg DAILY PO Last administered on 01/11/19 10:06; Admin Dose 220 MG; Start 12/09/18 at 09:00 Ibuprofen (Motrin) 400 mg Q6H PRN PO MILD PAIN(1-3) OR TEMP>38C Last admin istered on 01/08/19 20:51; Admin Dose 400 MG; Start 12/10/18 at 21:00 Trimethoprim/ Sulfamethoxazole (Bactrim (Ds)) 1 tab DAILY PO Last administered on 01/11/19 10:06; Admin Dose 1 TAB; Start 12/12/18 at 12:00 Alteplase, Recombinant (Cathflo (Activase)) 2 mg MAY REPEAT X1 PRN CATHETER IF CATHETER REMAINS OCCULUDED Last administered on 12/12/18 18:04; Admin Dose 2 MG; Start 12/12/18 at 14:30 Fluconazole (Diflucan) 100 mg DAILY PO Last administered on 01/11/19 10:06; Admin Dose 100 MG; Start 12/13/18 at 11:30 Zidovudine (Retrovir) 300 mg BID PO Last administered on 01/11/19 10:06; Admin Dose 300 MG; Start 12/21/18 at 21:00 Calcium Carbonate (Tums) 500 mg Q6H PRN PO DISTENSION/GAS/BLOATING Last administered on 12/24/18 06:29; Admin Dose 500 MG; Start 12/23/18 at 13:00 Lactobacillus Acidophilus/ Rhamnosus (Culturelle) 1 cap BID PO Last administered on 01/11/19 10:06; Admin Dose 1 CAP; Start 12/26/18 at 09:00 Famotidine (Pepcid) 20 mg DAILY PO Last administered on 01/11/19 10:07; Admin Dose 20 MG; Start 12/26/18 at 09:00 Zolpidem Tartrate (Ambien) 5 mg HS MAY REPEAT X 1 PRN PO INSOMNIA Last administered on 01/11/19 00:23; Admin Dose 5 MG; Start 12/31/18 at 02:30 Enoxaparin Sodium (Lovenox) 40 mg DAILY SC Last administered on 01/11/19 10:16; Admin Dose 40 MG; Start 01/06/19 at 09:00 Acetaminophen/ Hydrocodone Bitart ([place] (10/325)) 1 tab Q3 PRN PO MODERATE PAIN LEVEL 4-6 Last administered on 01/11/19 11:10; Admin Dose 1 TAB; Start 01/05/19 at 12:00 Ondansetron HCl (Zofran Inj) 4 mg Q4 PRN IV NAUSEA AND/OR VOMITING Last administered on 01/09/19 12:54; Admin Dose 4 MG; Start 01/05/19 at 12:00 Docusate Sodium (Colace) 100 mg BID PRN PO CONSTIPATION; Start 01/06/19 at 12:00 Morphine Sulfate (morphine) 4 mg Q4 PRN IV SEVERE PAIN LEVEL 7-10 Last administered on 01/11/19 13:44; Admin Dose 4 MG; Start 01/07/19 at 16:00 Morphine Sulfate (morphine) 2 mg Q3 PRN IV MOD TO SEVERE PAIN Last administered on 01/11/19 10:05; Admin Dose 2 MG; Start 01/07/19 at 16:00 Duloxetine HCl (Cymbalta) 20 mg DAILY PO Last administered on 01/11/19 10:06; Admin Dose 20 MG; Start 01/08/19 at 09:00 Sodium Hypochlorite (Dakins Diluted ()) 1 applic DAILY TP Last administered on 01/11/19at 10:08; Admin Dose 1 APPLIC; Start 01/10/19 at 09:00 Miscellaneous Information 1 ea NOTE XX ; Start 01/09/19 at 21:30 CRYSTAL RAMIREZ NP Jan 11, 2019 14:58
[2019-01-11 19:51] VITALS: BP 99/68; PULSE 80; RESP 17
[2019-01-12] MEDS: morphine 2 MG INJ IV PRN ×6 (01:30→21:42)
[2019-01-12] MEDS: ZOLPIDEM 5 MG TAB PO PRN ×2 (01:35→22:44)
[2019-01-12 01:51] VITALS: BP 97/65; PULSE 78; RESP 18
[2019-01-12 07:37] VITALS: BP 92/55; PULSE 71; RESP 16
[2019-01-12] MEDS: ASCORBIC ACID 500 MG TAB PO SCH ×2 (08:59→20:35)
[2019-01-12] MEDS: ZIDOVUDINE 300 MG TAB PO SCH ×2 (08:59→20:35)
[2019-01-12] MEDS: DULOXETINE 20 MG CAP DR PO SCH (08:59)
[2019-01-12] MEDS: FLUCONAZOLE 100 MG TAB PO SCH (08:59)
[2019-01-12] MEDS: ZINC SULFATE 220 MG CAP PO SCH (08:59)
[2019-01-12] MEDS: LACTOBACILLUS RHAMNOSUS CAP PO SCH ×2 (08:59→20:35)
[2019-01-12] MEDS: TRIMETHOPRIM/SULFAMETHOX (DS) TAB PO SCH (08:59)
[2019-01-12] MEDS: MULTIVITAMINS/MINERALS TAB PO SCH (08:59)
[2019-01-12] MEDS: FAMOTIDINE 20 MG TAB PO SCH (09:00)
[2019-01-12] MEDS: PREDNISOLONE ACET 1% 5 ML OPH LEFT EYE SCH (09:00)
[2019-01-12] MEDS: EMTRICITABINE/TENOFOVIR TAB PO SCH (09:00)
[2019-01-12] MEDS: ATROPINE 1% 5 ML OPH LEFT EYE SCH ×2 (09:01→20:35)
[2019-01-12] MEDS: ENOXAPARIN 40 MG/0.4 ML SYG SC SCH (09:02)
--- NOTE | 2019-01-12 11:14 | CONS ---
Assessment/Plan Assessment/Plan Hospital Course (Demo Recall) No changes per report Microbiology: Wound culture grew MRSA, repeat cx + Kleb, E coli, MRSA====> treated Antimicrobials: Truvada, Retrovir, Diflucan, Bactrim Physical examination: Well-developed well-nourished middle-aged man who is alert in no distress. Head atraumatic normocephalic sclera nonicteric neck is supple chest rise symmetrical breath sounds clear heart: S1-S2 abdomen soft bowel sounds present extremities without cyanosis. Assessment: 1. S/p sepsis 2. Fornier's gangrene and necrotizing fasciitis, status post multiple recurrent debridement, s/p skin grafts/flap reconstruction 01/04/19 3. AIDS===> CD4 12/13 143 4. Status post renal failure Plan: Remains stable, continue BAEZ and proph Rx, wound care per plastic surgery rec-s Consultation Date/Type/Reason Admit Date/Time Nov 30, 2018 at 20:47 Initial Consult Date 12/02/18 Type of Consult id Requesting Provider: TYE PETIT Date/Time of Note DATE: 01/12/19 TIME: 11:13 Exam/Review of Systems Exam Vitals Vital Signs Date Temp Pulse Resp B/P (MAP) Pulse Ox O2 O2 Flow FiO2 Time Delivery Rate 01/12/19 98.0 71 16 92/55 (67) 96 Room Air 07:37 Intake and Output 01/11/19 01/11/19 01/12/19 1515:00 23:00 07:00 IntakeIntake Total 960 ml 360 ml OutputOutput Total 550 ml 425 ml 350 ml BalanceBalance 410 ml -65 ml -350 ml Results Result Diagram: 01/09/1990501/09/19905 Medications Medication Current Medications Acetaminophen (Tylenol Liquid) 650 mg Q6H PRN PO PAIN LEVEL 1-3 OR FEVER Last a dministered on 12/14/18at 01:51; Admin Dose 650 MG; Start 11/30/18 at 21:00 Emtricitabine/ Tenofovir (Truvada) 1 tab DAILY PO Last administered on 01/12/19at 09:00; Admin Dose 1 TAB; Start 12/06/18 at 09:00 Prednisolone Acetate (Pred-Forte 1%) 1 drop DAILY LEFT EYE Last administered on 01/12/19 09:00; Admin Dose 1 DROP; Start 12/05/18 at 19:00 Atropine Sulfate (Atropine 1% Oph) 1 drop BID LEFT EYE Last administered on 01/12/19 09:01; Admin Dose 1 DROP; Start 12/07/18 at 21:00 Guaifenesin (Robitussin Liquid Cup) 100 mg Q4H PRN PO COUGH Last administered on 12/05/18 20:07; Admin Dose 100 MG; Start 12/05/18 at 19:00 Lactulose (Enulose) 20 gm DAILY PRN PO CONSTIPATION Last administered on 17:07; Admin Dose 20 GM; Start 12/07/18 at 16:00 Multivitamins/ Minerals (Theragran-M) 1 tab DAILY PO Last administered on 01/12/19 08:59; Admin Dose 1 TAB; Start 12/09/18 at 09:00 Ascorbic Acid (Vitamin C) 500 mg BID PO Last administered on 01/12/19 08:59; Admin Dose 500 MG; Start 12/09/18 at 09:00 Zinc Sulfate (Zinc Sulfate) 220 mg DAILY PO Last administered on 01/12/19 08:59; Admin Dose 220 MG; Start 12/09/18 at 09:00 Trimethoprim/ Sulfamethoxazole (Bactrim (Ds)) 1 tab DAILY PO Last administered on 01/12/19 08:59; Admin Dose 1 TAB; Start 12/12/18 at 12:00 Alteplase, Recombinant (Cathflo (Activase)) 2 mg MAY REPEAT X1 PRN CATHETER IF CATHETER REMAINS OCCULUDED Last administered on 12/12/18 18:04; Admin Dose 2 MG; Start 12/12/18 at 14:30 Fluconazole (Diflucan) 100 mg DAILY PO Last administered on 01/12/19 08:59; Admin Dose 100 MG; Start 12/13/18 at 11:30 Zidovudine (Retrovir) 300 mg BID PO Last administered on 01/12/19 08:59; Admin Dose 300 MG; Start 12/21/18 at 21:00 Calcium Carbonate (Tums) 500 mg Q6H PRN PO DISTENSION/GAS/BLOATING Last administered on 12/24/18 06:29; Admin Dose 500 MG; Start 12/23/18 at 13:00 Lactobacillus Acidophilus/ Rhamnosus (Culturelle) 1 cap BID PO Last administered on 01/12/19 08:59; Admin Dose 1 CAP; Start 12/26/18 at 09:00 Famotidine (Pepcid) 20 mg DAILY PO Last administered on 01/12/19 09:00; Admin Dose 20 MG; Start 12/26/18 at 09:00 Zolpidem Tartrate (Ambien) 5 mg HS MAY REPEAT X 1 PRN PO INSOMNIA Last administered on 01/12/19 01:35; Admin Dose 5 MG; Start 12/31/18 at 02:30 Enoxaparin Sodium (Lovenox) 40 mg DAILY SC Last administered on 01/12/19 09:02; Admin Dose 40 MG; Start 01/06/19 at 09:00 Acetaminophen/ Hydrocodone Bitart ([place] (10/325)) 1 tab Q3 PRN PO MODERATE PAIN LEVEL 4-6 Last administered on 01/11/19 20:21; Admin Dose 1 TAB; Start 01/05/19 at 12:00 Ondansetron HCl (Zofran Inj) 4 mg Q4 PRN IV NAUSEA AND/OR VOMITING Last administered on 01/09/19 12:54; Admin Dose 4 MG; Start 01/05/19 at 12:00 Docusate Sodium (Colace) 100 mg BID PRN PO CONSTIPATION; Start 01/06/19 at 12:00 Morphine Sulfate (morphine) 4 mg Q4 PRN IV SEVERE PAIN LEVEL 7-10 Last administered on 01/11/19 13:44; Admin Dose 4 MG; Start 01/07/19 at 16:00 Morphine Sulfate (morphine) 2 mg Q3 PRN IV MOD TO SEVERE PAIN Last administered on 01/12/19 09:03; Admin Dose 2 MG; Start 01/07/19 at 16:00 Duloxetine HCl (Cymbalta) 20 mg DAILY PO Last administered on 01/12/19 08:59; Admin Dose 20 MG; Start 01/08/19 at 09:00 Sodium Hypochlorite (Dakins Diluted ()) 1 applic DAILY TP Last administered on 01/11/19 10:08; Admin Dose 1 APPLIC; Start 01/10/19 at 09:00 Miscellaneous Information 1 ea NOTE XX ; Start 01/09/19 at 21:30 CRYSTAL RAMIREZ NP Jan 12, 2019 11:14
[2019-01-12] MEDS: HYDROCODONE/APAP (10/325) TAB PO PRN ×4 (11:15→23:34)
[2019-01-12] MEDS: DAKINS 0.0125%(1/40) 473 ML SOLUTION TP SCH (11:17)
--- NOTE | 2019-01-12 12:01 | PN ---
Date/Time of Note Date/Time of Note DATE: 01/12/19 TIME: 12:01 Assessment/Plan VTE Prophylaxis Risk score (from Nsg)>0 risk: 2 Pharmacological prophylaxis: LMWH Lines/Catheters IV Catheter Type (from Nrsg): Saline Lock Urinary Cath still in place: No Assessment/Plan Hospital Course 1. Nida gangrene: sp debridement*3. POD 5 flap reconstruction, cont wound care/ offloading Plastic surgery following, recommending to continue observation in hospital or custodial 2. HIV/ AIDS last CD4 count 143, on therapy. Patient does not wish to share this info with family 3. Hepatitis B 4. Substance abuse with alcohol, tobacco and drugs- Cocaine/ marijuana 5. Acute renal failure, resolved 6. SIADH/hyponatremia stable 7. Left eye blindness 8. PICC line associated infection Has been removed Prophylaxis: Lovenox DC planning: Placement pending Result Diagram: 01/09/1990501/09/19905 Subjective 24 Hr Interval Summary Constitutional: no complaints Exam/Review of Systems Exam Vitals Vital Signs Date Temp Pulse Resp B/P (MAP) Pulse Ox O2 O2 Flow FiO2 Time Delivery Rate 01/12/19 98.0 71 16 92/55 (67) 96 Room Air 07:37 Intake and Output 01/11/19 01/11/19 01/12/19 1515:00 23:00 07:00 IntakeIntake Total 960 ml 360 ml OutputOutput Total 550 ml 425 ml 350 ml BalanceBalance 410 ml -65 ml -350 ml Constitutional: alert Respiratory: clear to auscultation Cardiovascular: regular rate and rhythm Gastrointestinal: soft Musculoskeletal: nl extremities to inspection Medications Medication Current Medications Acetaminophen (Tylenol Liquid) 650 mg Q6H PRN PO PAIN LEVEL 1-3 OR FEVER Last administered on 12/14/18at 01:51; Admin Dose 650 MG; Start 11/30/18 at 21:00 Emtricitabine/ Tenofovir (Truvada) 1 tab DAILY PO Last administered on 01/12/19at 09:00; Admin Dose 1 TAB; Start 12/06/18 at 09:00 Prednisolone Acetate (Pred-Forte 1%) 1 drop DAILY LEFT EYE Last administered on 01/12/19at 09:00; Admin Dose 1 DROP; Start 12/05/18 at 19:00 Atropine Sulfate (Atropine 1% Oph) 1 drop BID LEFT EYE Last administered on 01/12/19 09:01; Admin Dose 1 DROP; Start 12/07/18 at 21:00 Guaifenesin (Robitussin Liquid Cup) 100 mg Q4H PRN PO COUGH Last administered on 12/05/18 20:07; Admin Dose 100 MG; Start 12/05/18 at 19:00 Lactulose (Enulose) 20 gm DAILY PRN PO CONSTIPATION Last administered on 12/07/18 17:07; Admin Dose 20 GM; Start 12/07/18 at 16:00 Multivitamins/ Minerals (Theragran-M) 1 tab DAILY PO Last administered on 01/12/19 08:59; Admin Dose 1 TAB; Start 12/09/18 at 09:00 Ascorbic Acid (Vitamin C) 500 mg BID PO Last administered on 01/12/19 08:59; Admin Dose 500 MG; Start 12/09/18 at 09:00 Zinc Sulfate (Zinc Sulfate) 220 mg DAILY PO Last administered on 01/12/19 08:59; Admin Dose 220 MG; Start 12/09/18 at 09:00 Trimethoprim/ Sulfamethoxazole (Bactrim (Ds)) 1 tab DAILY PO Last administered on 01/12/19 08:59; Admin Dose 1 TAB; Start 12/12/18 at 12:00 Alteplase, Recombinant (Cathflo (Activase)) 2 mg MAY REPEAT X1 PRN CATHETER IF CATHETER REMAINS OCCULUDED Last administered on 12/12/18 18:04; Admin Dose 2 MG; Start 12/12/18 at 14:30 Fluconazole (Diflucan) 100 mg DAILY PO Last administered on 01/12/19 08:59; Admin Dose 100 MG; Start 12/13/18 at 11:30 Zidovudine (Retrovir) 300 mg BID PO Last administered on 01/12/19 08:59; Admin Dose 300 MG; Start 12/21/18 at 21:00 Calcium Carbonate (Tums) 500 mg Q6H PRN PO DISTENSION/GAS/BLOATING Last administered on 12/24/18 06:29; Admin Dose 500 MG; Start 12/23/18 at 13:00 Lactobacillus Acidophilus/ Rhamnosus (Culturelle) 1 cap BID PO Last administered on 01/12/19 08:59; Admin Dose 1 CAP; Start 12/26/18 at 09:00 Famotidine (Pepcid) 20 mg DAILY PO Last administered on 01/12/19 09:00; Admin Dose 20 MG; Start 12/26/18 at 09:00 Zolpidem Tartrate (Ambien) 5 mg HS MAY REPEAT X 1 PRN PO INSOMNIA Last administered on 01/12/19 01:35; Admin Dose 5 MG; Start 12/31/18 at 02:30 Enoxaparin Sodium (Lovenox) 40 mg DAILY SC Last administered on 01/12/19 09:02; Admin Dose 40 MG; Start 01/06/19 at 09:00 Acetaminophen/ Hydrocodone Bitart ([place] (10/325)) 1 tab Q3 PRN PO MODERATE PAIN LEVEL 4-6 Last administered on 01/12/19 11:15; Admin Dose 1 TAB; Start 01/05/19 at 12:00 Ondansetron HCl (Zofran Inj) 4 mg Q4 PRN IV NAUSEA AND/OR VOMITING Last administered on 01/09/19 12:54; Admin Dose 4 MG; Start 01/05/19 at 12:00 Docusate Sodium (Colace) 100 mg BID PRN PO CONSTIPATION; Start 01/06/19 at 12:00 Morphine Sulfate (morphine) 4 mg Q4 PRN IV SEVERE PAIN LEVEL 7-10 Last administered on 01/11/19 13:44; Admin Dose 4 MG; Start 01/07/19 at 16:00 Morphine Sulfate (morphine) 2 mg Q3 PRN IV MOD TO SEVERE PAIN Last administered on 01/12/19 09:03; Admin Dose 2 MG; Start 01/07/19 at 16:00 Duloxetine HCl (Cymbalta) 20 mg DAILY PO Last administered on 01/12/19 08:59; Admin Dose 20 MG; Start 01/08/19 at 09:00 Sodium Hypochlorite (Dakins Diluted ()) 1 applic DAILY TP Last administered on 01/12/19 11:17; Admin Dose 1 APPLIC; Start 01/10/19 at 09:00 Miscellaneous Information 1 ea NOTE XX ; Start 01/09/19 at 21:30 LAITH MCKEON Jan 12, 2019 12:01
[2019-01-12] MEDS: morphine 4 MG/ML VIAL IV PRN (12:10)
[2019-01-12 14:10] VITALS: BP 91/55; PULSE 66; RESP 16
[2019-01-12 19:46] VITALS: BP 94/56; PULSE 80; RESP 17
[2019-01-13] MEDS: morphine 2 MG INJ IV PRN ×6 (02:01→23:23)
[2019-01-13 02:45] VITALS: BP 92/54; PULSE 68; RESP 18
[2019-01-13 08:33] VITALS: BP 92/58; PULSE 72; RESP 18
[2019-01-13] MEDS: ZINC SULFATE 220 MG CAP PO SCH (08:44)
[2019-01-13] MEDS: LACTOBACILLUS RHAMNOSUS CAP PO SCH ×2 (08:45→21:08)
[2019-01-13] MEDS: FAMOTIDINE 20 MG TAB PO SCH (08:45)
[2019-01-13] MEDS: MULTIVITAMINS/MINERALS TAB PO SCH (08:45)
[2019-01-13] MEDS: FLUCONAZOLE 100 MG TAB PO SCH (08:45)
[2019-01-13] MEDS: ASCORBIC ACID 500 MG TAB PO SCH ×2 (08:45→21:07)
[2019-01-13] MEDS: TRIMETHOPRIM/SULFAMETHOX (DS) TAB PO SCH (08:46)
[2019-01-13] MEDS: EMTRICITABINE/TENOFOVIR TAB PO SCH (08:46)
[2019-01-13] MEDS: ZIDOVUDINE 300 MG TAB PO SCH ×2 (08:46→21:07)
[2019-01-13] MEDS: DULOXETINE 20 MG CAP DR PO SCH (08:46)
[2019-01-13] MEDS: ATROPINE 1% 5 ML OPH LEFT EYE SCH ×2 (08:47→21:08)
[2019-01-13] MEDS: PREDNISOLONE ACET 1% 5 ML OPH LEFT EYE SCH (08:47)
[2019-01-13] MEDS: DAKINS 0.0125%(1/40) 473 ML SOLUTION TP SCH (08:52)
[2019-01-13] MEDS: ENOXAPARIN 40 MG/0.4 ML SYG SC SCH (08:56)
[2019-01-13] MEDS: HYDROCODONE/APAP (10/325) TAB PO PRN ×4 (09:54→21:07)
[2019-01-13] MEDS: morphine 4 MG/ML VIAL IV PRN (12:59)
[2019-01-13 13:19] VITALS: BP 94/50; PULSE 68; RESP 18
--- NOTE | 2019-01-13 14:49 | CONS ---
Assessment/Plan Assessment/Plan Hospital Course (Demo Recall) Looks comfortable, no fevers Microbiology: Wound culture grew MRSA, repeat cx + Kleb, E coli, MRSA====> treated Antimicrobials: Truvada, Retrovir, Diflucan, Bactrim Physical examination: Well-developed well-nourished middle-aged man who is alert in no distress. Head atraumatic normocephalic sclera nonicteric neck is supple chest rise symmetrical breath sounds clear heart: S1-S2 abdomen soft bowel sounds present extremities without cyanosis. Assessment: 1. S/p sepsis 2. Fornier's gangrene and necrotizing fasciitis, status post multiple recurrent debridement, s/p skin grafts/flap reconstruction 01/04/19 3. AIDS===> CD4 12/13 143 4. Status post renal failure Plan: Remains stable, continue BAEZ and proph Rx, wound care per plastic surgery rec-s dc arrangements Consultation Date/Type/Reason Admit Date/Time Nov 30, 2018 at 20:47 Initial Consult Date 12/02/18 Type of Consult id Requesting Provider: TYE PETIT Date/Time of Note DATE: 01/13/19 TIME: 14:48 Exam/Review of Systems Exam Vitals Vital Signs Date Temp Pulse Resp B/P (MAP) Pulse Ox O2 O2 Flow FiO2 Time Delivery Rate 01/13/19 98.4 68 18 94/50 (65) 96 13:19 01/12/19 Room Air 14:10 Intake and Output 01/12/19 01/12/19 01/13/19 1414:59 22:59 06:59 IntakeIntake Total 240 ml 240 ml OutputOutput Total 250 ml 440 ml 825 ml BalanceBalance -10 ml -200 ml -825 ml Results Result Diagram: 01/09/1990501/09/19 09 Medications Medication Current Medications Acetaminophen (Tylenol Liquid) 650 mg Q6H PRN PO PAIN LEVEL 1-3 OR FEVER Last administered on 12/14/18at 01:51; Admin Dose 650 MG; Start 11/30/18 at 21:00 Emtricitabine/ Tenofovir (Truvada) 1 tab DAILY PO Last administered on 9at 08:46; Admin Dose 1 TAB; Start 12/06/18 at 09:00 Prednisolone Acetate (Pred-Forte 1%) 1 drop DAILY LEFT EYE Last administered on 01/13/19 08:47; Admin Dose 1 DROP; Start 12/05/18 at 19:00 Atropine Sulfate (Atropine 1% Oph) 1 drop BID LEFT EYE Last administered on 01/13/19 08:47; Admin Dose 1 DROP; Start 12/07/18 at 21:00 Guaifenesin (Robitussin Liquid Cup) 100 mg Q4H PRN PO COUGH Last administered on 12/05/18 20:07; Admin Dose 100 MG; Start 12/05/18 at 19:00 Lactulose (Enulose) 20 gm DAILY PRN PO CONSTIPATION Last administered on 12/07/18 17:07; Admin Dose 20 GM; Start 12/07/18 at 16:00 Multivitamins/ Minerals (Theragran-M) 1 tab DAILY PO Last administered on 01/13/19 08:45; Admin Dose 1 TAB; Start 12/09/18 at 09:00 Ascorbic Acid (Vitamin C) 500 mg BID PO Last administered on 01/13/19 08:45; Admin Dose 500 MG; Start 12/09/18 at 09:00 Zinc Sulfate (Zinc Sulfate) 220 mg DAILY PO Last administered on 01/13/19 08:44; Admin Dose 220 MG; Start 12/09/18 at 09:00 Trimethoprim/ Sulfamethoxazole (Bactrim (Ds)) 1 tab DAILY PO Last administered on 01/13/19 08:46; Admin Dose 1 TAB; Start 12/12/18 at 12:00 Fluconazole (Diflucan) 100 mg DAILY PO Last administered on 01/13/19 08:45; Admin Dose 100 MG; Start 12/13/18 at 11:30 Zidovudine (Retrovir) 300 mg BID PO Last administered on 01/13/19 08:46; Admin Dose 300 MG; Start 12/21/18 at 21:00 Calcium Carbonate (Tums) 500 mg Q6H PRN PO DISTENSION/GAS/BLOATING Last administered on 12/24/18 06:29; Admin Dose 500 MG; Start 12/23/18 at 13:00 Lactobacillus Acidophilus/ Rhamnosus (Culturelle) 1 cap BID PO Last administered on 01/13/19 08:45; Admin Dose 1 CAP; Start 12/26/18 at 09:00 Famotidine (Pepcid) 20 mg DAILY PO Last administered on 01/13/19 08:45; Admin Dose 20 MG; Start 12/26/18 at 09:00 Zolpidem Tartrate (Ambien) 5 mg HS MAY REPEAT X 1 PRN PO INSOMNIA Last administered on 01/12/19 22:44; Admin Dose 5 MG; Start 12/31/18 at 02:30 Enoxaparin Sodium (Lovenox) 40 mg DAILY SC Last administered on 01/13/19 08:56; Admin Dose 40 MG; Start 01/06/19 at 09:00 Acetaminophen/ Hydrocodone Bitart ([place] (10)) 1 tab Q3 PRN PO MODERATE PAIN LEVEL 4-6 Last administered on 01/13/19 14:27; Admin Dose 1 TAB; Start 01/05/19 at 12:00 Ondansetron HCl (Zofran Inj) 4 mg Q4 PRN IV NAUSEA AND/OR VOMITING Last administered on 01/09/19 12:54; Admin Dose 4 MG; Start 01/05/19 at 12:00 Docusate Sodium (Colace) 100 mg BID PRN PO CONSTIPATION; Start 01/06/19 at 12:00 Morphine Sulfate (morphine) 4 mg Q4 PRN IV SEVERE PAIN LEVEL 7-10 Last administered on 01/13/19 12:59; Admin Dose 4 MG; Start 01/07/19 at 16:00 Morphine Sulfate (morphine) 2 mg Q3 PRN IV MOD TO SEVERE PAIN Last administered on 01/13/19 08:52; Admin Dose 2 MG; Start 01/07/19 at 16:00 Duloxetine HCl (Cymbalta) 20 mg DAILY PO Last administered on 01/13/19 08:46; Admin Dose 20 MG; Start 01/08/19 at 09:00 Sodium Hypochlorite (Dakins Diluted ()) 1 applic DAILY TP Last administered on 01/12/19 11:17; Admin Dose 1 APPLIC; Start 01/10/19 at 09:00 Miscellaneous Information 1 ea NOTE XX ; Start 01/09/19 at 21:30 CRYSTAL RAMIREZ NP Jan 13, 2019 14:49
--- NOTE | 2019-01-13 16:33 | PN ---
Date/Time of Note Date/Time of Note DATE: 01/13/19 TIME: 16:31 Assessment/Plan VTE Prophylaxis Risk score (from Nsg)>0 risk: 3 Pharmacological prophylaxis: LMWH Lines/Catheters IV Catheter Type (from Nrsg): Saline Lock Urinary Cath still in place: No Assessment/Plan Hospital Course 1. Nida gangrene: sp debridement*3. POD 5 flap reconstruction, cont wound care/ offloading Plastic surgery following, recommending to continue observation in hospital or long-term 2. HIV/ AIDS last CD4 count 143, on therapy. Patient does not wish to share this info with family 3. Hepatitis B 4. Substance abuse with alcohol, tobacco and drugs- Cocaine/ marijuana 5. Acute renal failure, resolved 6. SIADH/hyponatremia stable 7. Left eye blindness 8. PICC line associated infection Has been removed Prophylaxis: Lovenox DC planning: Placement pending Result Diagram: 01/09/1990501/09/19905 Subjective 24 Hr Interval Summary Constitutional: no complaints Exam/Review of Systems Exam Vitals Vital Signs Date Temp Pulse Resp B/P (MAP) Pulse Ox O2 O2 Flow FiO2 Time Delivery Rate 01/13/19 98.4 68 18 94/50 (65) 96 13:19 01/12/19 Room Air 14:10 Intake and Output 01/12/19 01/12/19 01/13/19 1515:00 23:00 07:00 IntakeIntake Total 240 ml 240 ml OutputOutput Total 250 ml 440 ml 825 ml BalanceBalance -10 ml -200 ml -825 ml Constitutional: alert, oriented Respiratory: clear to auscultation Cardiovascular: regular rate and rhythm Gastrointestinal: soft; No distended Musculoskeletal: nl extremities to inspection Medications Medication Current Medications Acetaminophen (Tylenol Liquid) 650 mg Q6H PRN PO PAIN LEVEL 1-3 OR FEVER Last administered on 12/14/18at 01:51; Admin Dose 650 MG; Start 11/30/18 at 21:00 Emtricitabine/ Tenofovir (Truvada) 1 tab DAILY PO Last administered on 01/13/19at 08:46; Admin Dose 1 TAB; Start 12/06/18 at 09:00 Prednisolone Acetate (Pred-Forte 1%) 1 drop DAILY LEFT EYE Last administered on 01/13/19at 08:47; Admin Dose 1 DROP; Start 12/05/18 at 19:00 Atropine Sulfate (Atropine 1% Oph) 1 drop BID LEFT EYE Last administered on 08:47; Admin Dose 1 DROP; Start 12/07/18 at 21:00 Guaifenesin (Robitussin Liquid Cup) 100 mg Q4H PRN PO COUGH Last administered on 12/05/18 20:07; Admin Dose 100 MG; Start 12/05/18 at 19:00 Lactulose (Enulose) 20 gm DAILY PRN PO CONSTIPATION Last administered on 12/07/18 17:07; Admin Dose 20 GM; Start 12/07/18 at 16:00 Multivitamins/ Minerals (Theragran-M) 1 tab DAILY PO Last administered on 01/13/19 08:45; Admin Dose 1 TAB; Start 12/09/18 at 09:00 Ascorbic Acid (Vitamin C) 500 mg BID PO Last administered on 01/13/19 08:45; Admin Dose 500 MG; Start 12/09/18 at 09:00 Zinc Sulfate (Zinc Sulfate) 220 mg DAILY PO Last administered on 01/13/19 08:44; Admin Dose 220 MG; Start 12/09/18 at 09:00 Trimethoprim/ Sulfamethoxazole (Bactrim (Ds)) 1 tab DAILY PO Last administered on 01/13/19 08:46; Admin Dose 1 TAB; Start 12/12/18 at 12:00 Fluconazole (Diflucan) 100 mg DAILY PO Last administered on 01/13/19 08:45; Admin Dose 100 MG; Start 12/13/18 at 11:30 Zidovudine (Retrovir) 300 mg BID PO Last administered on 01/13/19 08:46; Admin Dose 300 MG; Start 12/21/18 at 21:00 Calcium Carbonate (Tums) 500 mg Q6H PRN PO DISTENSION/GAS/BLOATING Last administered on 12/24/18 06:29; Admin Dose 500 MG; Start 12/23/18 at 13:00 Lactobacillus Acidophilus/ Rhamnosus (Culturelle) 1 cap BID PO Last administered on 01/13/19 08:45; Admin Dose 1 CAP; Start 12/26/18 at 09:00 Famotidine (Pepcid) 20 mg DAILY PO Last administered on 01/13/19 08:45; Admin Dose 20 MG; Start 12/26/18 at 09:00 Zolpidem Tartrate (Ambien) 5 mg HS MAY REPEAT X 1 PRN PO INSOMNIA Last administered on 01/12/19 22:44; Admin Dose 5 MG; Start 12/31/18 at 02:30 Enoxaparin Sodium (Lovenox) 40 mg DAILY SC Last administered on 01/13/19 08:56; Admin Dose 40 MG; Start 01/06/19 at 09:00 Acetaminophen/ Hydrocodone Bitart ([place] (10/325)) 1 tab Q3 PRN PO MODERATE PAIN LEVEL 4-6 Last administered on 01/13/19 14:27; Admin Dose 1 TAB; Start 01/05/19 at 12:00 Ondansetron HCl (Zofran Inj) 4 mg Q4 PRN IV NAUSEA AND/OR VOMITING Last administered on 01/09/19 12:54; Admin Dose 4 MG; Start 01/05/19 at 12:00 Docusate Sodium (Colace) 100 mg BID PRN PO CONSTIPATION; Start 01/06/19 at 12:00 Morphine Sulfate (morphine) 4 mg Q4 PRN IV SEVERE PAIN LEVEL 7-10 Last administered on 01/13/19 12:59; Admin Dose 4 MG; Start 01/07/19 at 16:00 Morphine Sulfate (morphine) 2 mg Q3 PRN IV MOD TO SEVERE PAIN Last administered on 01/13/19 08:52; Admin Dose 2 MG; Start 01/07/19 at 16:00 Duloxetine HCl (Cymbalta) 20 mg DAILY PO Last administered on 01/13/19 08:46; Admin Dose 20 MG; Start 01/08/19 at 09:00 Sodium Hypochlorite (Dakins Diluted ()) 1 applic DAILY TP Last administered on 01/12/19 11:17; Admin Dose 1 APPLIC; Start 01/10/19 at 09:00 Miscellaneous Information 1 ea NOTE XX ; Start 01/09/19 at 21:30 LAITH MCKEON Jan 13, 2019 16:33
[2019-01-13 19:31] VITALS: BP 98/61; PULSE 74; RESP 17
[2019-01-13] MEDS: ZOLPIDEM 5 MG TAB PO PRN (21:51)
[2019-01-14] MEDS: HYDROCODONE/APAP (10/325) TAB PO PRN ×5 (01:06→19:16)
[2019-01-14 02:25] VITALS: BP 92/58; PULSE 71; RESP 16
[2019-01-14] MEDS: morphine 2 MG INJ IV PRN ×5 (04:00→21:00)
[2019-01-14 08:34] VITALS: BP 98/63; PULSE 76; RESP 16
[2019-01-14] MEDS: LACTOBACILLUS RHAMNOSUS CAP PO SCH ×2 (09:13→20:58)
[2019-01-14] MEDS: DULOXETINE 20 MG CAP DR PO SCH (09:13)
[2019-01-14] MEDS: MULTIVITAMINS/MINERALS TAB PO SCH (09:13)
[2019-01-14] MEDS: EMTRICITABINE/TENOFOVIR TAB PO SCH (09:14)
[2019-01-14] MEDS: FAMOTIDINE 20 MG TAB PO SCH (09:14)
[2019-01-14] MEDS: ZINC SULFATE 220 MG CAP PO SCH (09:14)
[2019-01-14] MEDS: ZIDOVUDINE 300 MG TAB PO SCH ×2 (09:14→20:58)
[2019-01-14] MEDS: TRIMETHOPRIM/SULFAMETHOX (DS) TAB PO SCH (09:14)
[2019-01-14] MEDS: ASCORBIC ACID 500 MG TAB PO SCH ×2 (09:14→20:58)
[2019-01-14] MEDS: PREDNISOLONE ACET 1% 5 ML OPH LEFT EYE SCH (09:15)
[2019-01-14] MEDS: FLUCONAZOLE 100 MG TAB PO SCH (09:15)
[2019-01-14] MEDS: ATROPINE 1% 5 ML OPH LEFT EYE SCH ×2 (09:15→20:57)
[2019-01-14] MEDS: ENOXAPARIN 40 MG/0.4 ML SYG SC SCH (09:16)
[2019-01-14] MEDS: DAKINS 0.0125%(1/40) 473 ML SOLUTION TP SCH (09:19)
--- NOTE | 2019-01-14 10:32 | PN ---
Date/Time of Note Date/Time of Note DATE: 01/14/19 TIME: 10:32 Assessment/Plan VTE Prophylaxis Risk score (from Nsg)>0 risk: 2 Pharmacological prophylaxis: LMWH Lines/Catheters IV Catheter Type (from Nrsg): Saline Lock Urinary Cath still in place: No Assessment/Plan Hospital Course 1. Nida gangrene: sp debridement*3. POD 5 flap reconstruction, cont wound care/ offloading Plastic surgery following, recommending to continue observation in hospital or retirement 2. HIV/ AIDS last CD4 count 143, on therapy. Patient does not wish to share this info with family 3. Hepatitis B 4. Substance abuse with alcohol, tobacco and drugs- Cocaine/ marijuana 5. Acute renal failure, resolved 6. SIADH/hyponatremia stable 7. Left eye blindness 8. PICC line associated infection Has been removed Prophylaxis: Lovenox DC planning: Anticipate DC home tomorrow Subjective 24 Hr Interval Summary Constitutional: no complaints Exam/Review of Systems Exam Vitals Vital Signs Date Temp Pulse Resp B/P (MAP) Pulse Ox O2 O2 Flow FiO2 Time Delivery Rate 01/14/19 98.2 76 16 98/63 (75) 96 08:34 01/12/19 Room Air 14:10 Intake and Output 01/13/19 01/13/19 01/14/19 1515:00 23:00 07:00 IntakeIntake Total 1760 ml 360 ml OutputOutput Total 300 ml 200 ml 150 ml BalanceBalance 1460 ml 160 ml -150 ml Constitutional: alert Respiratory: clear to auscultation Cardiovascular: regular rate and rhythm Gastrointestinal: soft Musculoskeletal: nl extremities to inspection Medications Medication Current Medications Acetaminophen (Tylenol Liquid) 650 mg Q6H PRN PO PAIN LEVEL 1-3 OR FEVER Last administered on 12/14/18at 01:51; Admin Dose 650 MG; Start 11/30/18 at 21:00 Emtricitabine/ Tenofovir (Truvada) 1 tab DAILY PO Last administered on 01/14/19at 09:14; Admin Dose 1 TAB; Start 12/06/18 at 09:00 Prednisolone Acetate (Pred-Forte 1%) 1 drop DAILY LEFT EYE Last administered on 01/14/19at 09:15; Admin Dose 1 DROP; Start 12/05/18 at 19:00 Atropine Sulfate (Atropine 1% Oph) 1 drop BID LEFT EYE Last administered on 01/14/19 09:15; Admin Dose 1 DROP; Start 12/07/18 at 21:00 Guaifenesin (Robitussin Liquid Cup) 100 mg Q4H PRN PO COUGH Last administered on 12/05/18 20:07; Admin Dose 100 MG; Start 12/05/18 at 19:00 Lactulose (Enulose) 20 gm DAILY PRN PO CONSTIPATION Last administered on 12/07 17:07; Admin Dose 20 GM; Start 12/07/18 at 16:00 Multivitamins/ Minerals (Theragran-M) 1 tab DAILY PO Last administered on 01/14/19 09:13; Admin Dose 1 TAB; Start 12/09/18 at 09:00 Ascorbic Acid (Vitamin C) 500 mg BID PO Last administered on 01/14/19 09:14; Admin Dose 500 MG; Start 12/09/18 at 09:00 Zinc Sulfate (Zinc Sulfate) 220 mg DAILY PO Last administered on 01/14/19 09:14; Admin Dose 220 MG; Start 12/09/18 at 09:00 Trimethoprim/ Sulfamethoxazole (Bactrim (Ds)) 1 tab DAILY PO Last administered on 01/14/19 09:14; Admin Dose 1 TAB; Start 12/12/18 at 12:00 Fluconazole (Diflucan) 100 mg DAILY PO Last administered on 01/14/19 09:15; Admin Dose 100 MG; Start 12/13/18 at 11:30 Zidovudine (Retrovir) 300 mg BID PO Last administered on 01/14/19 09:14; Admin Dose 300 MG; Start 12/21/18 at 21:00 Calcium Carbonate (Tums) 500 mg Q6H PRN PO DISTENSION/GAS/BLOATING Last admin istered on 12/24/18 06:29; Admin Dose 500 MG; Start 12/23/18 at 13:00 Lactobacillus Acidophilus/ Rhamnosus (Culturelle) 1 cap BID PO Last administered on 01/14/19 09:13; Admin Dose 1 CAP; Start 12/26/18 at 09:00 Famotidine (Pepcid) 20 mg DAILY PO Last administered on 01/14/19 09:14; Admin Dose 20 MG; Start 12/26/18 at 09:00 Zolpidem Tartrate (Ambien) 5 mg HS MAY REPEAT X 1 PRN PO INSOMNIA Last administered on 01/13/19 21:51; Admin Dose 5 MG; Start 12/31/18 at 02:30 Enoxaparin Sodium (Lovenox) 40 mg DAILY SC Last administered on 01/14/19 09:16; Admin Dose 40 MG; Start 01/06/19 at 09:00 Acetaminophen/ Hydrocodone Bitart ([place] (10/325)) 1 tab Q3 PRN PO MODERATE PAIN LEVEL 4-6 Last administered on 01/14/19 09:28; Admin Dose 1 TAB; Start 01/05/19 at 12:00 Ondansetron HCl (Zofran Inj) 4 mg Q4 PRN IV NAUSEA AND/OR VOMITING Last administered on 01/09/19 12:54; Admin Dose 4 MG; Start 01/05/19 at 12:00 Docusate Sodium (Colace) 100 mg BID PRN PO CONSTIPATION; Start 01/06/19 at 12:00 Morphine Sulfate (morphine) 4 mg Q4 PRN IV SEVERE PAIN LEVEL 7-10 Last administered on 01/13/19 12:59; Admin Dose 4 MG; Start 01/07/19 at 16:00 Morphine Sulfate (morphine) 2 mg Q3 PRN IV MOD TO SEVERE PAIN Last administered on 01/14/19 07:12; Admin Dose 2 MG; Start 01/07/19 at 16:00 Duloxetine HCl (Cymbalta) 20 mg DAILY PO Last administered on 01/14/19 09:13; Admin Dose 20 MG; Start 01/08/19 at 09:00 Sodium Hypochlorite (Dakins Diluted ()) 1 applic DAILY TP Last administered on 01/14/19at 09:19; Admin Dose 1 APPLIC; Start 01/10/19 at 09:00 Miscellaneous Information 1 ea NOTE XX ; Start 01/09/19 at 21:30 LAITH MCKEON Jan 14, 2019 10:32
[2019-01-14] MEDS: morphine 4 MG/ML VIAL IV PRN (10:41)
[2019-01-14 14:24] VITALS: BP 102/64; PULSE 82; RESP 16
[2019-01-14 21:22] VITALS: BP 106/72; PULSE 80; RESP 17
[2019-01-14] MEDS: ZOLPIDEM 5 MG TAB PO PRN (21:53)
[2019-01-15] MEDS: morphine 2 MG INJ IV PRN ×2 (00:27→04:48)
[2019-01-15 08:25] VITALS: BP 100/63; PULSE 81; RESP 18
[2019-01-15] MEDS: ZINC SULFATE 220 MG CAP PO SCH (09:12)
[2019-01-15] MEDS: HYDROCODONE/APAP (10/325) TAB PO PRN ×2 (09:12→12:51)
[2019-01-15] MEDS: FLUCONAZOLE 100 MG TAB PO SCH (09:12)
[2019-01-15] MEDS: LACTOBACILLUS RHAMNOSUS CAP PO SCH (09:12)
[2019-01-15] MEDS: ZIDOVUDINE 300 MG TAB PO SCH (09:12)
[2019-01-15] MEDS: ATROPINE 1% 5 ML OPH LEFT EYE SCH (09:13)
[2019-01-15] MEDS: MULTIVITAMINS/MINERALS TAB PO SCH (09:13)
[2019-01-15] MEDS: EMTRICITABINE/TENOFOVIR TAB PO SCH (09:13)
[2019-01-15] MEDS: DULOXETINE 20 MG CAP DR PO SCH (09:13)
[2019-01-15] MEDS: TRIMETHOPRIM/SULFAMETHOX (DS) TAB PO SCH (09:13)
[2019-01-15] MEDS: FAMOTIDINE 20 MG TAB PO SCH (09:13)
[2019-01-15] MEDS: ASCORBIC ACID 500 MG TAB PO SCH (09:13)
[2019-01-15] MEDS: PREDNISOLONE ACET 1% 5 ML OPH LEFT EYE SCH (09:14)
[2019-01-15] MEDS: ENOXAPARIN 40 MG/0.4 ML SYG SC SCH (09:18)
[2019-01-15] MEDS: morphine 4 MG/ML VIAL IV PRN (10:17)
[2019-01-15] MEDS: DAKINS 0.0125%(1/40) 473 ML SOLUTION TP SCH (10:18)
--- NOTE | 2019-01-15 10:58 | PDOCDIS ---
Discharge Instructions CONDITION [id number] Patient Condition: [id number] Good HOME CARE INSTRUCTIONS: [id number] Diet Instructions: [id number] Regular ACTIVITY: [id number] Activity Restrictions: [id number] Slowly Increase Activity Rest between Activity Avoid heavy lifting Do not Drive [id number] Bathing Restrictions: [id number] Tub Bath FOLLOW UP/APPOINTMENTS Follow-up Plan Follow-up with a PCP in 1 to 2 weeks, follow-up with home health, follow-up with HIV clinic, follow-up with Dr. Petit of plastic surgery in clinic LAITH MCKEON Jan 15, 2019 10:58
--- NOTE | 2019-01-15 11:02 | DS ---
Date/Time of Note Date/Time of Note DATE: 01/15/19 TIME: 10:59 Discharge Summary Admission/Discharge Info Admit Date/Time Nov 30, 2018 at 20:47 Discharge Date/Time January 15, 2019 Discharge Diagnosis 1. Nida gangrene: sp debridement with flap reconstruction, cont wound care/ offloading Plastic surgery consultation appreciated Continue wound care via home health 2. HIV/ AIDS last CD4 count 143, on therapy. Patient does not wish to share this info with family DC with HAART medications Follow-up with HIV clinic DC with prophylactic antibiotics 3. Hepatitis B 4. Substance abuse with alcohol, tobacco and drugs- Cocaine/ marijuana Cessation advised 5. Acute renal failure, resolved 6. SIADH/hyponatremia stable 7. 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 PICC line associated infection Has been removed Patient Condition: Good Hospital Course Patient is a 43-year-old male who presented with Nida's gangrene status post debridement with urology with extension of infection into the left flank and subsequent debridement with general surgery. Patient was seen by plastic surgery and ultimately had a flap reconstruction. Patient did receive IV antibiotics during hospitalization was seen by ID. Patient was diagnosed with HIV/AIDS with last CD4 count at 143, patient was started on HAART medication as well as prophylactic antibiotics. Patient did have a prolonged hospitalization for wound care and ultimately was stable for home with home health. Patient did understand how to address his wounds and understood to avoid extensive movem ents. Patient was stable for DC, on the day of discharge patient's vitals, labs and physical exam are stable. Home Meds Active Scripts Multivits,Ca,Minerals/Iron/FA (Thera M Plus Tablet) 1 Each Tablet, 1 TAB PO DAILY for 60 Days, #120 TAB Prov:LAITH MCKEON 01/15/19 Ascorbic Acid (Vitamin C) 500 Mg Tab, 500 MG PO BID for 60 Days, #120 TAB Prov:LAITH MCKEON 01/15/19 Sodium Hypochlorite (Di-Dak-Cara) 473 Ml Solution, 1 APPLIC TP DAILY, #1 BOTTLE Prov:LAITH MCKEON 01/15/19 Lactobacillus Rhamnosus GG (Culturelle) 1 Each Capsule, 1 CAP PO BID for 60 Days, #120 CAP Prov:LAITH MCKEON 01/15/19 Zidovudine* (Zidovudine*) 300 Mg Tablet, 300 MG PO BID for 60 Days, #120 TAB 1 Refill Prov:LAITH MCKEON 01/15/19 Sulfamethoxazole/Trimethoprim (Sulfamethoxazole-Tmp Ds Tablet) 1 Each Tablet, 1 TAB PO DAILY for 30 Days, #30 TAB Prov:LAITH MCKEON 01/15/19 Fluconazole* (Diflucan*) 100 Mg Tablet, 100 MG PO DAILY for 14 Days, #14 TAB Prov:LAITH MCKEON 01/15/19 Emtricitabine-Tenofovir* (Truvada*) 200-300 Mg Tab, 1 TAB PO DAILY, #90 TAB 1 Refill Prov:LAITH MCKEON 01/15/19 Reported Medications Atropine Sulfate/0.9 %Sod Chlr (Atropine 0.01%-Ns Eye Drops) 10 Ml Drops, 1 ML OP BID, #1 12/05/18 Prednisolone Acetate* (Pred Forte*) 5 Ml Susp, 1 DROP LEFT EYE Q1HOUR, EA 12/04/18 Follow-up Plan Follow-up with a PCP in 1 to 2 weeks, follow-up with home health, follow-up with HIV clinic, follow-up with Dr. Petit of plastic surgery in clinic Primary Care Provider Care Physician No Primary Time spent on discharge: > 30 minutes LAITH MCKEON Jan 15, 2019 11:02
== END 2019-01-15 14:25 | disposition home health service (06) | DRG 969 ==
LOC: E/R 16:45 → SDS 19:55 → ICU 20:47 → PP2 12-06 19:30 → 2NE 12-27 14:00
PROVIDERS: ADMIT Internal Medicine; ATTEND Internal Medicine
PROC: 0VBSXZZ Excision of Penis, External Approach (ICD-10-PCS; 2018-11-30)
PROC: 0HBAXZZ Excision of Inguinal Skin, External Approach (ICD-10-PCS; 2018-11-30)
PROC: 0HB9XZZ Excision of Perineum Skin, External Approach (ICD-10-PCS; 2018-11-30)
PROC: 0VB5XZZ Excision of Scrotum, External Approach (ICD-10-PCS; 2018-11-30)
PROC: 0VB70ZZ Excision of Left Tunica Vaginalis, Open Approach (ICD-10-PCS; principal; 2018-11-30 20:00)
PROC: 0JBC0ZZ Excision of Pelvic Region Subcutaneous Tissue and Fascia, Open Approach (ICD-10-PCS; 2018-12-02)
PROC: 0JB80ZZ Excision of Abdomen Subcutaneous Tissue and Fascia, Open Approach (ICD-10-PCS; 2018-12-02)
PROC: 0JB60ZZ Excision of Chest Subcutaneous Tissue and Fascia, Open Approach (ICD-10-PCS; 2018-12-02)
PROC: 5A1945Z Respiratory Ventilation, 24-96 Consecutive Hours (ICD-10-PCS; 2018-12-02)
PROC: 0JJW0ZZ Inspection of Lower Extremity Subcutaneous Tissue and Fascia, Open Approach (ICD-10-PCS; 2018-12-02)
PROC: 0JJW0ZZ Inspection of Lower Extremity Subcutaneous Tissue and Fascia, Open Approach (ICD-10-PCS; 2018-12-02)
PROC: 0VB5XZZ Excision of Scrotum, External Approach (ICD-10-PCS; 2018-12-02)
PROC: 30233N1 Transfusion of Nonautologous Red Blood Cells into Peripheral Vein, Percutaneous Approach (ICD-10-PCS; 2018-12-03)
PROC: 0JBM0ZZ Excision of Left Upper Leg Subcutaneous Tissue and Fascia, Open Approach (ICD-10-PCS; 2018-12-04)
PROC: 0JB60ZZ Excision of Chest Subcutaneous Tissue and Fascia, Open Approach (ICD-10-PCS; 2018-12-04)
PROC: 02HV33Z Insertion of Infusion Device into Superior Vena Cava, Percutaneous Approach (ICD-10-PCS; 2018-12-04)
PROC: 0JB90ZZ Excision of Buttock Subcutaneous Tissue and Fascia, Open Approach (ICD-10-PCS; 2018-12-08)
PROC: 0KBL0ZZ Excision of Left Abdomen Muscle, Open Approach (ICD-10-PCS; 2019-01-04)
PROC: 0KXG0ZZ Transfer Left Trunk Muscle, Open Approach (ICD-10-PCS; 2019-01-04)
PROC: 0JX80ZC Transfer Abdomen Subcutaneous Tissue and Fascia with Skin, Subcutaneous Tissue and Fascia, Open Approach (ICD-10-PCS; 2019-01-04)
PROC: 0JXM0ZC Transfer Left Upper Leg Subcutaneous Tissue and Fascia with Skin, Subcutaneous Tissue and Fascia, Open Approach (ICD-10-PCS; 2019-01-04)
PROC: 0JXL0ZC Transfer Right Upper Leg Subcutaneous Tissue and Fascia with Skin, Subcutaneous Tissue and Fascia, Open Approach (ICD-10-PCS; 2019-01-04)
DX: A41.9 Sepsis, unspecified organism (principal); M72.6 Necrotizing fasciitis; B20 Human immunodeficiency virus [HIV] disease; T80.219A Unspecified infection due to central venous catheter, initial encounter; N17.0 Acute kidney failure with tubular necrosis; G92 Toxic encephalopathy; B19.10 Unspecified viral hepatitis B without hepatic coma; L02.31 Cutaneous abscess of buttock; I96 Gangrene, not elsewhere classified; E87.2 Acidosis; E22.2 Syndrome of inappropriate secretion of antidiuretic hormone; N49.3 Fournier gangrene; R65.20 Severe sepsis without septic shock; B95.62 Methicillin resistant Staphylococcus aureus infection as the cause of diseases classified elsewhere; D64.9 Anemia, unspecified; F10.10 Alcohol abuse, uncomplicated; F19.10 Other psychoactive substance abuse, uncomplicated; H54.62 Unqualified visual loss, left eye, normal vision right eye; R60.1 Generalized edema; Z87.891 Personal history of nicotine dependence
CPT/HCPCS: 36415; 36430; 36569; 36600; 70551; 71045; 74176; 74177; 80048; 80053; 80076; 80202; 80307; 81001; 81003; 82043; 82270; 82533; 82565; 82728; 82803; 82962; 83540; 83605; 83735; 83935; 84100; 84134; 84155; 84300; 84484; 84520; 85014; 85018; 85025; 85610; 85730; 86360; 86644; 86701; 86703; 86704; 86709; 86803; 86850; 86900; 86901; 86920; 87070; 87075; 87086; 87102; 87116; 87340; 87536; 88304; 93005; 94002; 94770; 96374; 96375; 97110; 97161; 97164; C9113; J0131; J0171; J0690; J1170; J1200; J1580; J1650; J1885; J2001; J2060; J2175; J2185; J2250; J2270; J2370; J2405; J2543; J2997; J3010; J3370; J3475; J7030; J7040; J7050; J7070; P9016; Q9967

== ENCOUNTER 2019-01-17 15:00 | Emergency (ER) | payer MEDICAID ==
[~2019-01-17] VITALS: Ht 167.6 cm; Wt 67.2 kg
[2019-01-17 15:12] VITALS: BP 120/61; PULSE 90; RESP 18; Ht 167.6 cm; Wt 67.2 kg
== END 2019-01-17 16:23 | disposition home or self-care (01) ==
LOC: FTE 15:00 → E/R 16:23
DX: Z48.02 Encounter for removal of sutures (principal)
CPT/HCPCS: 99281